=== PATIENT | female | born 2000 | race Caucasian/White ===

== ENCOUNTER 2023-10-02 19:51 | Emergency (ER) | payer OTHER, SELFPAY ==
[2023-10-02 19:58] VITALS: BP 130/83; PULSE 88; RESP 16; TEMP 36.7; O2SAT 100; BMI 23.8
--- NOTE | 2023-10-02 20:24 | ED.EAR1 ---
HPI - Ear Problem General Chief complaint: Ear Stated complaint: ear pain Time Seen by Provider: 10/02/23 19:57 Source: patient Mode of arrival: walk-in History of Present Illness HPI Narrative: Patient reports fullness in both ears since jamie covid a couple of weeks ago. No sharp pain. No current cough, nasal congestion, sinus pressure or runny nose. No drainage from the ears. No GI symptoms or cough. Related Data Allergies Allergy/AdvReac Type Severity Reaction Status Date / Time No Known Drug Allergies Allergy Verified 10/02/23 19:57 Exam Narrative Exam Narrative: Nurses notes and vital signs reviewed and patient is not hypoxic. afebrile General: Well-appearing and in no apparent distress. Skin: Warm, dry, no pallor noted. Head: Normocephalic, atraumatic. No maxillary or frontal sinus tenderness Neck: Supple, non-tender. No cervical lymphadenopathy Eye: Pupils are equal, round and EOMI. No scleral icterus. Ears, Nose, Mouth, and Throat: TMs are dull bilaterally with clear EACs. No erythema or injection. No nasal mucosal hypertrophy, uvula is mid-line Oral mucosa is moist Cardiovascular: Regular Rate and Rhythm without murmur, gallop or rub. Respiratory: No accessory muscle use or respiratory distress. Lungs are clear to auscultation, no wheezing, rales or rhonchi Neurological: A&O x4. No cranial nerve dysfunction observed. No truncal ataxia. Moves all extremities. Sensation intact. Psychiatric: Cooperative and interactive. Normal mood and affect. Constitutional Vital Signs, click to edit/add: Last Vital Signs Temp 98.0 F 10/02/23 19:58 Pulse 88 10/02/23 19:58 Resp 16 10/02/23 19:58 BP 130/83 10/02/23 19:58 Pulse Ox 100 10/02/23 19:58 O2 Del Method Room Air 10/02/23 19:58 Course Vital Signs Vital signs: Vital Signs Temperature 98.0 F 10/02/23 19:58 Pulse Rate 88 10/02/23 19:58 Respiratory Rate 16 10/02/23 19:58 Blood Pressure 130/83 10/02/23 19:58 Pulse Oximetry 100 10/02/23 19:58 Oxygen Delivery Method Room Air 10/02/23 19:58 Temperature 98.0 F 10/02/23 19:58 Pulse Rate 88 10/02/23 19:58 Respiratory Rate 16 10/02/23 19:58 Blood Pressure 130/83 10/02/23 19:58 Pulse Oximetry 100 10/02/23 19:58 Oxygen Delivery Method Room Air 10/02/23 19:58 Medical Decision Making MDM Narrative Medical decision making narrative: Patient has some serous changes but no acute otitis media. We discussed the use of antihistamines plus minus decongestant to try and decrease fluid production. We also discussed ways to clear the eustachian tubes. She was given reassurance and discharged home Discharge Plan Discharge Stand Alone Forms: Portal Instructions Chief Complaint: Ear Clinical Impression: Acute ear pain Qualifiers: Laterality: bilateral Qualified Code(s): H92.03 - Otalgia, bilateral Patient Disposition: Home, Self-Care Time of Disposition Decision: 20:28 Instructions: Earache (ED) Referrals: ALYSSA RICCI [Primary Care Provider] - 1 week
== END 2023-10-02 20:54 | disposition home or self-care (01) ==
PROVIDERS: Emergency Provider Emergency Medicine; PCP Nurse Practitioner
DX: H92.03 Otalgia, bilateral (principal)
CPT/HCPCS: 99284

== ENCOUNTER 2023-10-31 20:53 | Emergency (ER) | payer OTHER, SELFPAY ==
[2023-10-31 20:57] VITALS: BP 109/79; PULSE 78; TEMP 37; O2SAT 98; BMI 24.7
--- NOTE | 2023-10-31 21:08 | ED_ITS ---
HPI - Dental/Oral General Chief complaint: Dental/Oral Stated complaint: Dental Pain Time Seen by Provider: 10/31/23 21:02 Source: patient Mode of arrival: walk-in Limitations: no limitations History of Present Illness HPI Narrative: 23 year old female presents to the ED for dental pain. It has been intermittent for the past six months. States the pain flared up 3 days ago. Reports scheduling a dentist appointment; she was scheduled for the beginning of Nov, 2023. Denies fever, chills, SOB, difficulty swallowing. She took Motrin about 6 hours [employer]. Denies chance of . Related Data Previous Rx's ?Medication ?Instructions ?Recorded penicillin V potassium 500 mg 500 mg PO TID 10 days #30 tabs 10/31/23 tablet Allergies Allergy/AdvReac Type Severity Reaction Status Date / Time No Known Drug Allergies Allergy Verified 10/31/23 20:57 Review of Systems ROS Constitutional Denies: fever or chills Ears, nose, mouth, and throat Reports: other (Dental pain); Denies: throat pain, neck pain, difficulty swallowing or nasal discharge Cardiovascular Denies: chest pain Respiratory Denies: shortness of breath Musculoskeletal Denies: neck pain Integumentary/Breast Denies: rash Neurological Denies: headache, weakness in extremities or dizziness Exam Constitutional Vital Signs, click to edit/add: Last Vital Signs Temp 98.6 F 10/31/23 20:57 Pulse 78 10/31/23 20:57 Resp 18 10/31/23 20:57 BP 109/79 10/31/23 20:57 Pulse Ox 98 10/31/23 20:57 Common normals: no apparent distress and oriented x3 General appearance: cooperative HENMT Common normals: moist oral mucous membranes and oropharynx normal Mouth: lip normal and tongue normal; no drooling and no muffled voice Teeth and gingiva: caries and other Throat: posterior oropharynx normal and uvula midline Other: Dental caries various areas. No facial swelling. No swelling to floor of mouth. Pt speaking in full sentences, handling secretions well. Eye Common normals: conjunctivae normal and no scleral icterus Neck & C-Spine Common normals: supple and no meningeal signs Respiratory Common normals: normal respiratory effort Effort & inspection: able to speak in complete sentences and symmetric chest movement Cardio Common normals: regular rate Neuro Common normals: oriented x3, moves all extremities and gait normal Sensorium/orientation: awake and alert Course Vital Signs Vital signs: Vital Signs Temperature 98.6 F 10/31/23 20:57 Pulse Rate 78 10/31/23 20:57 Respiratory Rate 18 10/31/23 20:57 Blood Pressure 109/79 10/31/23 20:57 Pulse Oximetry 98 10/31/23 20:57 Temperature 98.6 F 10/31/23 20:57 Pulse Rate 78 10/31/23 20:57 Respiratory Rate 18 10/31/23 20:57 Blood Pressure 109/79 10/31/23 20:57 Pulse Oximetry 98 10/31/23 20:57 MDM - Dental/Oral MDM Narrative Medical decision making narrative: She was medicated with Toradol here. A prescription was provided for PCN. Follow up with the dentist as scheduled. Tylenol and/or Motrin as directed for pain. Return precautions were discussed. Differential Diagnosis Differential diagnosis: Likely gingival abscess, dental caries, toothache and dental abscess Medical Records Attestation: I reviewed the patient's medical records. Discharge Plan Discharge Stand Alone Forms: Portal Instructions Chief Complaint: Dental/Oral Clinical Impression: Dental caries, Toothache Patient Disposition: Home, Self-Care Time of Disposition Decision: 21:06 Condition: Good Mode of Transportation: Private Vehicle Prescriptions / Home Meds: New penicillin V potassium 500 mg tablet 500 mg PO TID 10 Days Qty: 30 0RF Print Language: French Instructions: Toothache (ED) Additional Instructions: Follow up with your dentist as scheduled. Return to the ER if your condition worsens. Referrals: ALYSSA RICCI [Primary Care Provider] - 1 week Discharge Date/Time: 10/31/23 21:35
[2023-10-31] MEDS: KETOROLAC TROMETHAMINE 60 MG/2 ML VIAL IM (21:17)
[2023-10-31] MEDS: PENICILLIN V POTASSIUM 250 MG TABLET 500 MG PO (21:17)
--- OUTSIDE RECORDS SUMMARY | 2023-10-31 21:33 | XMS_ITS | CCD ---
Author Organization [facility] Care Team Providers Care Physics Faculty Member Name Role Phone KEIRY, JANET R Admitting Unavailable KEIRY, JANET R Attending Unavailable KEIRY, JANET R Primary Care Unavailable KEIRY, JANET R Consulting Unavailable Harshal Car Admitting Unavailable Harshal Car Attending Unavailable Keiry, Janet R Primary Care Unavailable Keiry, Janet R Primary Care Provider [phone] Keiry, Janet R Primary Care Provider Radha Benavides Primary Care Provider Radha Benavides Primary Care Provider Kennedy [employer] SEAT COVERERRadha Primary Care Provider [facility] Provider Keiry [employer] - Janet BRODY Primary Care Provider Marianne Tucker CNP Primary Care Provider MARIANNE TUCKER Primary Care Unavailable MARTHA LARA Attending Unavailable AVERY OVALLE Referring Unavailable KEIRY, JANET R Primary Care Unavailable KEIRY, JANET R Primary Care Unavailable MAURICE, VESELIN Attending Unavailable KEIRY, JANET R Primary Care Unavailable SARAH JUSTICE Attending Unavailable KEIRY, JANET R Primary Care Unavailable MAURICE, VESELIN Attending Unavailable KEIRY, JANET R Primary Care Unavailable KEIRY, JANET R Primary Care Unavailable POOL, KARLEE E Referring Unavailable KEIRY, JANET R Primary Care Unavailable POOL, KARLEE E Referring Unavailable POOL, KARLEE E Referring Unavailable KEIRY, JANET R Primary Care Unavailable AVERY OVALLE Referring Unavailable KEIRY, JANET R Primary Care Unavailable Kennedy QUICK-Radha BRODY Primary Care Provider SELF, SELF Referring Unavailable BENAVIDES, RADHA L Attending Unavailable BENAVIDES, RADHA L Primary Care Unavailable BENAVIDES, RADHA L Attending Unavailable BENAVIDES, RADHA L Primary Care Unavailable SELF, SELF Referring Unavailable BENAVIDES, RADHA L Attending Unavailable BENAVIDES, RADHA L Primary Care Unavailable SELF, SELF Referring Unavailable BENAVIDES, RADHA L Attending Unavailable BENAVIDES, RADHA L Primary Care Unavailable SELF, SELF Referring Unavailable BENAVIDES, RADHA L Primary Care Unavailable BENAVIDES, RADHA L Attending Unavailable SELF, SELF Referring Unavailable BENAVIDES, RADHA L Primary Care Unavailable BENAVIDES, RADHA L Attending Unavailable SELF, SELF Referring Unavailable BENAVIDES, RADHA L Attending Unavailable BENAVIDES, RADHA L Primary Care Unavailable SELF, SELF Referring Unavailable BENAVIDES, RADHA L Attending Unavailable BENAVIDES, RADHA L Primary Care Unavailable SELF, SELF Referring Unavailable BENAVIDES, ARDHA L Attending Unavailable BENAVIDES, RADHA L Primary Care Unavailable SELF, SELF Referring Unavailable BENAVIDES, RADHA L Primary Care Unavailable SELF, SELF Referring Unavailable BENAVIDES, RADHA L Attending Unavailable BENAVIDES, RADHA L Primary Care Unavailable SELF, SELF Referring Unavailable BENAVIDES, RADHA L Attending Unavailable BENAVIDES, RADHA L Primary Care Unavailable SELF, SELF Referring Unavailable BENAVIDES, RADHA L Attending Unavailable BENAVIDES, RADHA L Primary Care Unavailable SELF, SELF Referring Unavailable BENAVIDES, RADHA L Attending Unavailable Keiry [employer] [facility], Janet Clark Primary Care Provider POOL, KARLEE E Referring Unavailable KEIRY, JANET R Primary Care Unavailable WYATT DSOUZA Referring Unavailable KEIRY, JANET R Primary Care Unavailable POOL, KARLEE E Referring Unavailable KEIRY, JANET R Primary Care Unavailable POOL, KARLEE E Admitting Unavailable POOL, KARLEE E Attending Unavailable KEIRY, JANET R Primary Care Unavailable POOL, KARLEE E Admitting Unavailable POOL, KARLEE E Attending Unavailable KEIRY, JANET R Primary Care Unavailable POOL, KARLEE E Admitting Unavailable POOL, KARLEE E Attending Unavailable KEIRY, JANET R Primary Care Unavailable POOL, KARLEE E Referring Unavailable KEIRY, JANET R Primary Care Unavailable Benavides SUPERVIS[employer] SEAT COVERER, Radha L Primary Care Provider Virginia COX Attending Unavailable BENAVIDES, RADHA L Primary Care Unavailable Virginia COX Referring Unavailable SELF, SELF Referring Unavailable Virginia COX Attending Unavailable RADHA BENAVIDES Primary Care Unavailable Virginia COX Referring Unavailable RADHA BENAVIDES Primary Care Unavailable Virginia COX Attending Unavailable Virginia COX MARK Referring Unavailable RADHA BENAVIDES Primary Care Unavailable Virginia COX MARK Attending Unavailable Virginia COX MARK Referring Unavailable Virginia COX Attending Unavailable RADHA BENAVIDES Primary Care Unavailable Virginia COX MARK Referring Unavailable Virginia COX MARK Attending Unavailable RADHA BENAVIDES Primary Care Unavailable Allergies Allergy Classification Reported Allergen(s) Allergy Type Date of Onset Reaction(s) Facility (1 source) Lactose Drug Allergy 06-20-2014 [facility] Repository (1 source) Lactose Drug Allergy 10-16-2018 [facility] Repository (1 source) Lactose Drug Allergy 09-25-2020 [facility] Medications Current Medications Medication Drug Class(es) Dates Sig (Normalized) Sig (Original) acetaminophen 325 mg / butalbital 50 mg / caffeine 40 mg oral tablet (7 sources) Barbiturate, Central Nervous System Stimulant, Methylxanthine Start: 05-12-2021 take 1 tablet by mouth every four hours as needed for headache butalbital-acetam inophen-caffeine (FIORICET, ESGIC) 50-325-40 MG per tablet Indications: Headache in , antepartum, second trimester Take 1 tablet by mouth every 4 hours as needed for Headaches 50 tablet 3 05/12/2021 Active azithromycin 250 mg oral tablet (4 sources) Macrolide Antimicrobial Start: 12-04-2020 End: 12-04-2020 azithromycin (Zithromax) 250 MG tablet Indications: Exposure to STD Take 1 gm PO for one dose. 4 tablet 0 12/04/2020 12/04/2020 Active Start: 10-16-2019 End: 11-16-2019 take 2 tablets by mouth once daily, then take 1 tablet by mouth azithromycin (ZITHROMAX) 250 MG tablet Indications: Bronchitis 2 tablets (500 mg) by mouth on day one. 1 tablet (250 mg) by mouth on days 2-5. 6 tablet 0 10/16/2019 11/16/2019 Discontinued (LIST CLEANUP) 1.5 ml buprenorphine 200 mg/ml prefilled syringe (20 sources) Partial Opioid Agonist Start: 08-23-2023 End: 09-26-2023 300 mg, Subcutaneous, ONCE, 1 dose, On Tue09/26/23 at 1430, For abdominal subcutaneous (SQ) injection only. Do not administer IV or IM. Allow at least 15 minutes to warm to room temperature prior to injection. Administer each injection only using the syringe and safety needle included with the product. Start: 11-12-2021 End: 06-10-2022 take 1 tablet under the tongue once daily buprenorphine 8 MG sublingual tablet Indications: Opioid dependence in remission , Encounter for long-term opiate analgesic use Place 1 tablet under tongue daily. 30 tablet 05/11/2022 Active Start: 08-17-2021 End: 11-10-2021 take 1 tablet under the tongue once daily buprenorphine 8 MG sublingual tablet Indications: Opioid dependence in remission , Encounter for long-term opiate analgesic use , , unspecified gestational age Place 1 tablet under tongue daily. 30 tablet 0 10/14/2021 11/10/2021 Discontinued (Reorder) Start: 05-19-2021 End: 07-16-2021 take 1 tablet under the tongue once daily buprenorphine 8 MG sublingual tablet Indications: Opioid dependence in remission , Encounter for long-term opiate analgesic use , , unspecified gestational age Place 1 tablet under tongue daily. 30 tablet 0 06/16/2021 07/16/2021 Active buprenorphine 5.7 mg / naloxone 1.4 mg sublingual tablet (20 sources) Partial Opioid Agonist, Opioid Antagonist Start: 02-27-2021 End: 05-24-2021 Buprenorphine HCl-Naloxone HCl (ZUBSOLV) 5.7-1.[address] 1 TABLET UNDER TONGUE DAILY EVERY MORNING. 0 02/27/2021 05/24/2021 Discontinued (LIST CLEANUP) Start: 02-27-2021 buprenorphine- nalOXone (Zubsolv) 5.7-1.[address] 1 TABLET UNDER TONGUE DAILY EVERY MORNING. 0 02/27/2021 Active Start: 10-02-2020 End: 03-30-2021 Buprenorphine HCl-Naloxone H Cl (Zubsolv) 5.7-1.4 MG Tab SL Indications: Opioid dependence in remission , Encounter for long-term opiate analgesic use Place 1 tablet under tongue daily every morning. 30 tablet 0 02/28/2021 03/30/2021 Active Start: 10-02-2020 End: 03-28-2021 Buprenorphine HCl-Naloxone H Cl (Zubsolv) 2.9-0.71 MG Tab SL Indications: Opioid dependence in remission , Encounter for long-term opiate analgesic use Place 1 tablet under tongue every evening at 6 PM. 30 tablet 0 02/26/2021 03/28/2021 Active Start: 09-25-2020 End: 10-02-2020 Buprenorphine HCl-Naloxone H Cl (Zubsolv) 2.9-0.71 MG Tab SL Indications: Opioid dependence in remission , Encounter for long-term opiate analgesic use Place 1 tablet under tongue 2 times daily for 7 days. 14 tablet 0 09/25/2020 10/02/2020 Discontinued (Reorder) Start: 09-17-2020 End: 09-25-2020 Zubsolv 2.9-0.71 MG Tab SL P LACE 1 TABLET UNDER THE TONGUE EVERY DAY 0 09/17/2020 09/25/2020 Discontinued Start: 09-10-2020 End: 09-25-2020 Zubsolv 1.4-0.36 MG Tab SL D ISSOLVE ONE TABLET UNDER TONGUE ONCE DAILY 0 09/10/2020 09/25/2020 Discontinued Start: 09-03-2020 End: 09-25-2020 Zubsolv 0.7-0.18 MG Tab SL P LACE 1 TABLET UNDER THE TONGUE EVERY DAY 0 09/03/2020 09/25/2020 Discontinued cephalexin 250 mg oral capsule (8 sources) Cephalosporin Antibacterial Start: 06-16-2021 take 1 capsule by mouth three times daily cephALEXin (KEFLEX) 250 MG capsule Indications: Cystitis of in second trimester Take 1 capsule by mouth 3 times daily 21 capsule 0 06/16/2021 Active Start: 04-08-2021 End: 04-08-2021 take 1 capsule by mouth three times daily cephALEXin (KEFLEX) 500 MG capsule Take 1 capsule by mouth 3 times daily 15 capsule 0 04/08/2021 Active cholecalciferol 0.05 mg oral tablet (12 sources) Vitamin D Start: 09-16-2023 End: 10-14-2023 take 1 tablet by mouth once daily cholecalciferol 50 MCG (2000 UNIT) tablet Indications: Vitamin D deficiency Take 1 tablet by mouth daily. 28 tablet 2 09/16/2023 10/14/2023 Active Start: 10-09-2020 End: 04-08-2021 take 1 tablet by mouth once daily vitamin D3 (CHOLECALCIFEROL) 125 MCG (5000 UT) TABS tablet Take 5,000 Units by mouth daily 0 10/09/2020 04/08/2021 Discontinued (Therapy completed) 12 hr dextromethorphan hydrobromide 30 mg / guaiFENesin 600 mg extended release oral tablet (3 sources) Uncompetitive P-hxrisv-X-aspartate Receptor Antagonist, Sigma-1 Agonist Start: 01-22-2020 End: 04-08-2021 Dextromethorphan-guaiFENesin (MUCINEX DM) 30-600 MG TB12 Take 30 tablets by mouth 2 times daily as needed (cough/congestion) 28 tablet 0 01/22/2020 04/08/2021 Discontinued (Therapy completed) docusate sodium 100 mg oral capsule (1 source) Start: 10-28-2021 take 1 capsule by mouth twice daily as needed for constip ation docusate sodium (COLACE) 100 MG capsule Take 1 capsule by mouth 2 times daily as needed for Constipation 30 capsule 0 10/28/2021 Active doxycycline hyclate 100 mg oral tablet (1 source) Tetracycline-class Drug Start: 11-16-2019 End: 11-23-2019 take 1 tablet by mouth twice daily doxycycline hyclate (VIBRA-TABS) 100 MG tablet Take 1 tablet by mouth 2 times daily for 7 days 14 tablet 0 11/16/2019 11/23/2019 Active ferrous sulfate 325 mg oral tablet (6 sources) Start: 08-26-2021 take 1 tablet by mouth once daily at [facility]fa [facility] ferrous sulfate (IRON 325) 325 (65 Fe) MG tablet Take 1 tablet by mouth daily (with breakfast) 90 tablet 1 08/26/2021 Active fluconazole 100 mg oral tablet (1 source) Azole Antifungal Start: 08-24-2019 End: 08-27-2019 take 1 tablet by mouth once daily fluconazole (DIFLUCAN) 100 MG tablet Take 1 tablet by mouth daily for 3 days 3 tablet 0 08/24/2019 08/27/2019 Active FLUoxetine 10 mg oral capsule (1 source) Serotonin Reuptake Inhibitor Start: 12-15-2021 take 1 capsule by mouth once daily FLUoxetine (PROZAC) 10 MG capsule Indications: depression (CODE) Take 1 capsule by mouth daily 30 capsule 3 12/15/2021 Active gabapentin 300 mg oral capsule (1 source) Anti-epileptic Agent Start: 09-16-2023 End: 09-30-2023 take 1 capsule by mouth three times daily Gabapentin 300 MG capsule Indications: Sciatica of left side Take 1 capsule by mouth 3 times daily for 14 days. 42 capsule 1 09/16/2023 09/30/2023 Active glucose monitoring (FREESTYLE FREEDOM) kit (6 sources) Start: 09-10-2021 glucose monitoring (FREESTYL E FREEDOM) kit Indications: Impaired glucose in , antepartum , Abnormal glucose affecting 1 kit by Does not apply route 4 times daily Use qid to monitor glucose 1 kit 0 09/10/2021 Active ibuprofen 800 mg oral tablet (4 sources) Nonsteroidal Anti-inflammatory Drug Start: 10-28-2021 take 1 tablet by mouth every eight hours ibuprofen (ADVIL;MOTRIN) 800 MG tablet Take 1 tablet by mouth every 8 hours 120 tablet 3 10/28/2021 Active Start: 05-18-2019 take 1 tablet by juice th every eight hours as needed for pain ibuprofen (ADVIL;MOTRIN) 800 MG tablet Take 1 tablet by mouth every 8 hours as needed for Pain 30 tablet 0 05/18/2019 Active ketoconazole 20 mg/ml medicated shampoo (20 sources) Azole Antifungal Start: 07-14-2021 ketoconazole 2 % Shampoo shampoo Indications: Seborrheic dermatitis of scalp Apply 1 Application topically 3 times weekly. Apply topically to wet hair 3-4 times a week 120 mL 04/08/2022 Active Start: 09-25-2020 End: 04-08-2021 ketoconazole 2 % Shampoo sha mpoo Indications: Seborrheic dermatitis of scalp Apply 1 Application topically 3 times weekly. Apply topically to wet hair 3-4 times a week 120 mL 0 01/29/2021 Active lamoTRIgine 100 mg oral tablet (14 sources) Mood Stabilizer, Anti-epileptic Agent End: 08-24-2019 take 1 tablet by mouth once daily lamoTRIgine 100 MG tablet Take 100 mg by mouth daily. 0 Active Multiple Vitamins-Iron (MULTI-VITAMIN/IRON PO) (1 source) Multiple Vitamins-Iron (MULTI-VITAMIN/IR ON PO) Take by mouth 0 Active naloxone hydrochloride 40 mg/ml nasal spray (20 sources) Opioid Antagonist Start: 09-16-2023 End: 09-16-2023 naloxone 4 MG/0.1ML Indications: Opioid dependence in remission 1 spray by Nasal route once for 1 dose. [place] into the nose as directed. Call 911. If no response in 2 minutes use a new nasal spray in other nostril. Repeat until help arrives. 1 Each 09/16/2023 Active Start: 10-13-2021 End: 10-13-2021 naloxone 4 MG/0.1ML Indicati ons: Opioid dependence in remission , Encounter for long-term opiate analgesic use 1 spray by Nasal route once for 1 dose. [place] into the nose as directed. Call 911. If no response in 2 minutes use a new nasal spray in other nostril. Repeat until help arrives. 1 Each 0 10/13/2021 Active Start: 09-25-2020 naloxone 4 MG/ 0.1ML Indications: Opioid dependence in remission , Encounter for long-term opiate analgesic use 1 spray by Nasal route once for 1 dose. 1 Bottle 0 09/25/2020 Active nitrofurantoin, macrocrystals 25 mg / nitrofurantoin, monohydrate 75 mg oral capsule (1 source) Nitrofuran Antibacterial Start: 01-29-2021 End: 02-08-2021 take 1 capsule by mouth twice daily nitrofurantoin, macrocrystal-monohydrate, 100 MG capsule Indications: Acute cystitis with hematuria Take 1 capsule by mouth 2 times daily for 10 days. Take w/ food/milk 20 capsule 0 01/29/2021 02/08/2021 Active omeprazole 20 mg delayed release oral capsule (20 sources) Proton Pump Inhibitor Start: 09-16-2023 End: 10-14-2023 take 2 capsules by mouth twice daily as needed omeprazole [address] capsule Indications: Gastroesophageal reflux disease, unspecified whether esophagitis present Take 2 capsules by mouth 2 times daily as needed. 56 capsule 2 09/16/2023 10/14/2023 Active Start: 01-22-2020 End: 02-21-2020 take 1 capsule by mouth twice daily as needed omeprazole [address] capsule Take 20 mg by mouth 2 times daily as needed. 0 01/22/2020 Active Omeprazole Magne sium (PRILOSEC PO) Take by mouth 0 Active End: 08-24-2019 take 1 capsule by mouth twice daily omeprazole (PRILOSEC) 40 MG delayed release capsule Take 40 mg by mouth 2 times daily 0 08/24/2019 Discontinued (LIST CLEANUP) Vit-Fe Fumarate-FA ( VITAMIN PO) (11 sources) Vit-Fe Fumarate-FA ( VITAMIN PO) Take by mouth 0 Active QUEtiapine 50 mg oral tablet (20 sources) Atypical Antipsychotic Start: 4 End: 4 take 1 tablet by mouth at bedtime as needed QUEtiapine 50 MG tablet Indications: Primary insomnia Take 1 tablet by mouth at bedtime as needed. 28 tablet 2 09/16/2023 10/14/2023 Active Start: 07-31-2021 take 1 tablet by juice th once daily at bedtime QUEtiapine (SEROQUEL) 100 MG tablet TAKE 1 TABLET BY MOUTH EVERYDAY AT BEDTIME 0 07/31/2021 Active Start: 08-25-2020 End: 01-29-2021 take 1 tablet by mouth at bedtime QUEtiapine 100 MG tablet Indications: Anxiety , Bipolar 1 disorder Take 1 tablet by mouth at bedtime. 90 tablet 2 01/29/2021 Active End: 08-24-2019 take 1 tablet by mouth once daily QUEtiapine (SEROQUEL) 50 MG tablet Take 50 mg by mouth nightly 0 08/24/2019 Discontinued (LIST CLEANUP) selenium sulfide 22.5 mg/ml medicated shampoo (1 source) Start: 09-16-2023 Selenium Sulfide 2.25 % Shampoo Indications: Dandruff in adult Apply 1 Units topically every other day. 180 mL 2 09/16/2023 Active sulfamethoxazole 800 mg / trimethoprim 160 mg oral tablet (1 source) Dihydrofolate Reductase Inhibitor Antibacterial, Sulfonamide Antimicrobial Start: 08-24-2019 End: 08-29-2019 take 1 tablet by mouth twice daily sulfamethoxazole- trimethoprim (BACTRIM DS) 800-160 MG per tablet Take 1 tablet by mouth 2 times daily for 5 days 10 tablet 0 08/24/2019 08/29/2019 Active Completed/Discontinued Medications Medication Drug Class(es) Dates Sig (Normalized) Sig (Original) acetaminophen 500 mg oral tablet (2 sources) Start: 01-22-2020 End: 01-22-2020 acetaminophen (TYLENOL) tablet 1,000 mg Start: 05-18-2019 End: 05-18-2019 acetaminophen (TYLENOL) tabl et 1,000 mg amoxicillin 250 mg oral capsule (1 source) Penicillin-class Antibacterial Start: 10-15-2021 End: 10-15-2021 amoxicillin (AMOXIL) capsule 500 mg Start: 10-15-2021 End: 10-15-2021 amoxicillin (AMOXIL) capsule 500 mg cefTRIAXone 1000 mg injection (2 sources) Cephalosporin Antibacterial Start: 12-04-2020 End: 12-04-2020 cefTRIAXone (ROCEPHIN) injection 1 g Start: 12-04-2020 End: 12-04-2020 cefTRIAXone (ROCEPHIN) injec tion 1 g 1 ml ketorolac tromethamine 30 mg/ml cartridge (2 sources) Nonsteroidal Anti-inflammatory Drug, Cyclooxygenase Inhibitor Start: 01-22-2020 End: 01-22-2020 ketorolac (TORADOL) injection 30 mg Start: 11-16-2019 End: 11-16-2019 ketorolac (TORADOL) injectio n 30 mg Naltrexone (1 source) Opioid Antagonist End: 05-18-2019 Naltrexone (VIVITROL IM) Inject into the muscle every 28 days 0 05/18/2019 Discontinued (LIST CLEANUP) naproxen 500 mg oral tablet (4 sources) Nonsteroidal Anti-inflammatory Drug Start: 11-16-2019 End: 01-22-2020 take 1 tablet by mouth twice daily naproxen (NAPROSYN) 500 MG tablet Take 1 tablet by mouth 2 times daily 30 tablet 0 11/16/2019 01/22/2020 Discontinued (LIST CLEANUP) predniSONE 5 mg oral tablet (1 source) Start: 05-12-2021 End: 05-24-2021 take 1 tablet by mouth once daily predniSONE (DELTASONE) 5 MG tablet Indications: No appetite Take 1 tablet orally daily 30 tablet 3 05/12/2021 05/24/2021 Discontinued (LIST CLEANUP) Vit-Fe Fumarate-FA ( Plus) 27-1 MG tablet (7 sources) Start: 10-09-2020 End: 07-15-2021 take 1 tablet by mouth once daily Vit-Fe Fumarate-FA ( Plus) 27-1 MG tablet Indications: Vitamin D deficiency Take 1 tablet by mouth daily. 90 tablet 0 10/09/2020 01/29/2021 Discontinued Start: 10-09-2020 take 1 tablet by juice th once daily Vit-Fe Fumarate-FA ( Plus) 27-1 MG tablet Indications: Vitamin D deficiency Take 1 tablet by mouth daily. 90 tablet 0 10/09/2020 Active sucralfate 1000 mg oral tablet (3 sources) Aluminum Complex End: 08-24-2019 take 1 tablet by mouth four times daily sucralfate (CARAFATE) 1 GM tablet Take 1 g by mouth 4 times daily 0 08/24/2019 Discontinued (LIST CLEANUP) Problems Active Problems Problem Classification Problem Date Documented Da te Episodic/Chronic Abdominal pain (1 source) Pain in pelvis; Translations: [Pelvic pain] Episodic Acute bronchitis (1 source) Acute bronchitis; Translations: [Acute bronchitis, unspecified organism] Episodic Anxiety disorders (20 sources) Anxiety disorder, unspecified; Translations: [Anxiety disorder] Onset: 9 10-01-2019 Chronic Bacterial infection; unspecified site (1 source) Chlamydial infection; Translations: [Chlamydia infection] Episodic Esophageal disorders (3 sources) Gastroesophageal reflux disease; Translations: [Gastro-esophageal reflux disease without esophagitis] Onset: 4 09-16-2023 Chronic Esophageal disorders (1 source) Esophageal disorders; Translations: [K21.9 - Gastro-esophageal reflux disease without esophagitis] Onset: 9 Gastrointestinal hemorrhage (1 source) Rectal hemorrhage; Translations: [Hemorrhage of anus and rectum] Episodic Headache; including migraine (1 source) Headache; Translations: [Nonintractable headache, unspecified chronicity pattern, unspecified headache type] Episodic Immunizations and screening for infectious disease (4 sources) Exposure to sexually transmissible disorder; Translations: [Contact with and (suspected) exposure to infections with a predominantly sexual mode of transmission] Onset: 3 Episodic Malaise and fatigue (1 source) Fatigue; Translations: [Fatigue, unspecified type] Episodic Menstrual disorders (1 source) Amenorrhea; Translations: [Amenorrhea, unspecified] Chronic Miscellaneous mental health disorders (3 sources) Primary insomnia; Translations: [Primary insomnia] Onset: 4 09-16-2023 Chronic Mood disorders (20 sources) Major depression, single episode; Translations: [Bipolar I disorder] Onset: 9 10-01-2019 Chronic Nutritional deficiencies (4 sources) Vitamin D deficiency; Translations: [Vitamin D deficiency, unspecified] Onset: 4 09-16-2023 Chronic Other complications of (1 source) Abdominal pain in ; Translations: [Other specified related conditions, first trimester] Episodic Other ear and sense organ disorders (1 source) Otalgia; Translations: [Otalgia, unspecified ear] Episodic Other inflammatory condition of skin (2 sources) Seborrheic dermatitis of scalp; Translations: [Seborrheic dermatitis, unspecified] Episodic Other inflammatory condition of skin (2 sources) Seborrheic dermatitis, unspecified; Translations: [Seborrheic dermatitis, unspecified] Onset: 2 Episodic Other inflammatory condition of skin (1 source) Pityriasis simplex; Translations: [Seborrhea capitis] Onset: 4 09-16-2023 Episodic Other inflammatory condition of skin (2 sources) Seborrhea capitis; Translations: [Seborrhea capitis] Onset: 4 Episodic Other nervous system disorders (1 source) Loss of taste; Translations: [Parageusia] Episodic Other skin disorders (1 source) Loss of hair; Translations: [Hair loss] Episodic Residual codes; unclassified (1 source) Gestation period, 11 weeks; Translations: [11 weeks gestation of ] Episodic Residual codes; unclassified (1 source) Gestation period, 36 weeks; Translations: [36 weeks gestation of ] Episodic Residual codes; unclassified (1 source) Breast fed ; Translations: [Other specified health status] Episodic Spondylosis; intervertebral disc disorders; other back problems (3 sources) Sciatica; Translations: [Sciatica, left side] Onset: 4 09-16-2023 Episodic Substance-related disorders (20 sources) Opioid abuse, uncomplicated; Translations: [Opioid abuse] Onset: 9 10-01-2019 Chronic Unclassified (8 sources) Patient encounter status; Translations: [Encntr for obs for oth suspected diseases and cond ruled out] Onset: 0 10-01-2019 Unclassified (1 source) Repeated prescription; Translations: [Encounter for medication refill] Unclassified (1 source) Cancer cervix screening status; Translations: [Screening for cervical cancer] Urinary tract infections (2 sources) Acute cystitis; Translations: [Acute cystitis with hematuria] Episodic Viral infection (2 sources) COVID-19; Translations: [COVID-19] Onset: 2 Past or Other Problems Problem Classification Problem Date Documented Date Episodic/Chronic Administrative/social admission (20 sources) 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; 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] Onset: 10-01-2019 Episodic Diabetes or abnormal glucose tolerance complicating ; childbirth; or the puerperium (2 sources) Gestational diabetes mellitus complicating ; Translations: [Gestational diabetes mellitus in , unspecified control] Onset: 09-10-2021 10-26-2021 Episodic Early or threatened labor (5 sources) Premature uterine contraction; Translations: [False labor before 37 completed weeks of gestation, third trimester] Onset: 10-15-2021 Resolved: 12-15-2021 Episodic Esophageal disorders (17 sources) Disorder of esophagus; Translations: [Disease of esophagus, unspecified] Onset: 10-17-2018 10-01-2019 Episodic Genitourinary symptoms and ill-defined conditions (20 sources) Dysuria; Translations: [Dysuria] Onset: 10-01-2019 10-01-2019 Episodic Intracranial injury (18 sources) Concussion with no loss of consciousness; Translations: [Concussion without loss of consciousness, initial encounter] Onset: 10-01-2019 10-01-2019 Episodic Mood disorders (2 sources) Major depressive disorder, single episode, unspecified; Translations: [Mood disorders] Onset: 08-16-2018 09-16-2023 Mycoses (18 sources) Candidiasis of vagina; Translations: [Candidiasis of vulva and vagina] Onset: 10-01-2019 Resolved: 12-15-2021 10-01-2019 Episodic Other aftercare (2 sources) 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; Translations: [care home (current) use of opiate analgesic] Onset: 02-26-2021 Episodic Other complications of (1 source) Anemia in mother complicating , childbirth AND/OR puerperium; Translations: [Anemia complicating , third trimester] Onset: 10-26-2021 Resolved: 12-15-2021 12-15-2021 Chronic Other complications of (5 sources) data - finding; Translations: [Unspecified abnormal findings on screening of mother] Onset: 10-26-2021 Resolved: 12-15-2021 10-05-2021 Episodic Other complications of (1 source) Urinary tract infection in ; Translations: [Unspecified infection of urinary tract in , third trimester] Resolved: 12-15-2021 12-15-2021 Episodic Other and delivery including normal (11 sources) Urine test positive; Translations: [Encounter for test, result positive] Onset: 10-13-2021 Resolved: 12-15-2021 Episodic Other screening for suspected conditions (not mental disorders or infectious disease) (1 source) Patient encounter status; Translations: [Encounter for observation for other suspected diseases and conditions ruled out] Onset: 10-01-2019 10-01-2019 Episodic Other upper respiratory infections (4 sources) Nasopharyngitis; Translations: [Acute nasopharyngitis [common cold]] Onset: 10-13-2021 Episodic Residual codes; unclassified (2 sources) Other specified health status; Translations: [Other specified health status] Onset: 11-10-2021 Episodic Residual codes; unclassified (1 source) Gestation period, 39 weeks; Translations: [39 weeks gestation of ] Onset: 10-26-2021 Resolved: 12-15-2021 12-15-2021 Episodic Residual codes; unclassified (1 source) 36 weeks gestation of ; Translations: [36 weeks gestation of ] Onset: 10-05-2021 Episodic Residual codes; unclassified (1 source) 30 weeks gestation of ; Translations: [30 weeks gestation of ] Onset: 08-25-2021 Episodic Substance-related disorders (6 sources) Drug dependence in mother complicating , childbirth AND/OR puerperium; Translations: [Drug use complicating , unspecified trimester] Onset: 09-10-2021 Resolved: 12-15-2021 09-10-2021 Episodic Results Test Name Value Interpretation Reference Range Facility Chlamydia/GC,DNA Ampon 08-23 Chlamydia Probe Negative Normal NEG [facility] Comment on above: Result Comment: CHLA MYDIA TRACHOMATIS DNA not detected by nucleic acid amplification. This test is intended for medical purposes only and is not valid for the evaluation of suspected sexual abuse or for other forensic purposes. In certain contexts, culture may be required to meet applicable laws and regulations for diagnosis of C. trachomatis and N. gonorrhoeae infections. Per 2014 CDC recommendations, this test does not include confirmation of positive results by an alternative nucleic acid target. Performed By: #### S WCGP #### [facility] [place], [place] [id number] School Commissioner: Isak Guerrero MD Gonorrhea Probe Negative Normal NEG [facility] Comment on above: Result Comment: NEIS SERIA GONORRHOEAE DNA not detected by nucleic acid amplification. This test is intended for medical purposes only and is not valid for the evaluation of suspected sexual abuse or for other forensic purposes. In certain contexts, culture may be required to meet applicable laws and regulations for diagnosis of C. trachomatis and N. gonorrhoeae infections. Per 2014 CDC recommendations, this test does not include confirmation of positive results by an alternative nucleic acid target. Performed By: #### S WCGP #### [facility] [address] [place] [address] [id number] School Commissioner: Isak Guerrero MD Trichomonas/Wet Prepon 08-20 Trichomonas/Wet Prep Specimen Descriptio n .VAGINAL SPECIMEN Direct Exam NO YEAST OBSERVED NO TRICHOMONAS SEEN CLUE CELLS SEEN Report Status FINAL 08/20/2022 Normal [facility] Comment on above: Performed By: #### W P #### [facility] [address] [place] [address] School Commissioner: Harshal Austin MD Wet prep, genitalon 08-20-19 Interpretation and review of laboratory results Abnormal [facility] Microorganism or agent identified Nom (Unsp spec) NO YEAST OBSERVED [facility] Microorganism or agent identified Nom (Unsp spec) NO TRICHOMONAS SEEN [facility] Microorganism or agent identified Nom (Unsp spec) CLUE CELLS SEEN Abnormal [facility] Specimen Description .VAGINAL SPECIMEN [facility] POCT ALERE DRUG SCREENon Amphetamine (AMP), poct Negative [facility] Barbiturates (BAR), poct Negative [facility] Buprenorphine Glucuronide (BUPG),poct Positive [facility] COCAINE (NADIRA), POCT Negative [facility] Ecstasy (MDMA), poct Negative [facility] Interpretation and review of laboratory results Normal [facility] Marijuana (THC), poct Negative [facility] Comment on above: temp was 90. Methadone (MTD), poct Negative [facility] Methamphetamine (mAMP/MET), poct Negative [facility] Nortripyline (TCA), poct Negative [facility] Opiate (OPI), poct Negative [facility] OXAZEPAM (BZO),POCT Negative [facility] Oxycodone (OXY), poct Negative [facility] Phencyclidine (PCP), poct Negative [facility] Propoxyphene (PPX), poct Negative [facility] Urine was not witnes sed. All controls were present. [facility] Residential Documentson 03-18-2022 Residential Documents [id number]:[id number] Normal [facility] POCT ALERE DRUG SCREENon Amphetamine (AMP), poct Negative [facility] Barbiturates (BAR), poct Negative [facility] Buprenorphine Glucuronide (BUPG),poct Positive [facility] COCAINE (NADIRA), POCT Negative [facility] Ecstasy (MDMA), poct Negative [facility] Interpretation and review of laboratory results Normal [facility] Marijuana (THC), poct Negative [facility] Comment on above: Temp 90 urine was no t witnessed Methadone (MTD), poct Negative [facility] Methamphetamine (mAMP/MET), poct Negative [facility] Nortripyline (TCA), poct Negative [facility] Opiate (OPI), poct Negative [facility] OXAZEPAM (BZO),POCT Negative [facility] Oxycodone (OXY), poct Negative [facility] Phencyclidine (PCP), poct Negative [facility] Propoxyphene (PPX), poct Negative [facility] All internal control s were present [facility] POCT ALERE DRUG SCREENon Amphetamine (AMP), poct Negative [facility] Barbiturates (BAR), poct Negative [facility] Buprenorphine Glucuronide (BUPG),poct Positive [facility] COCAINE (NADIRA), POCT Negative [facility] Ecstasy (MDMA), poct Negative [facility] Interpretation and review of laboratory results Normal [facility] Marijuana (THC), poct Negative [facility] Comment on above: Temp 90 urine was no t witnessed Methadone (MTD), poct Negative [facility] Methamphetamine (mAMP/MET), poct Negative [facility] Nortripyline (TCA), poct Negative [facility] Opiate (OPI), poct Negative [facility] OXAZEPAM (BZO),POCT Negative [facility] Oxycodone (OXY), poct Negative [facility] Phencyclidine (PCP), poct Negative [facility] Propoxyphene (PPX), poct Negative [facility] All internal control s were present [facility] POCT ALERE DRUG SCREENon Amphetamine (AMP), poct Negative [facility] Barbiturates (BAR), poct Negative [facility] Buprenorphine Glucuronide (BUPG),poct Positive [facility] COCAINE (NADIRA), POCT Negative [facility] Ecstasy (MDMA), poct Negative [facility] Interpretation and review of laboratory results Normal [facility] Marijuana (THC), poct Negative [facility] Comment on above: temp 90 urine was no t witnessed Methadone (MTD), poct Negative [facility] Methamphetamine (mAMP/MET), poct Negative [facility] Nortripyline (TCA), poct Negative [facility] Opiate (OPI), poct Negative [facility] OXAZEPAM (BZO),POCT Negative [facility] Oxycodone (OXY), poct Negative [facility] Phencyclidine (PCP), poct Negative [facility] Propoxyphene (PPX), poct Negative [facility] All internal control s were present [facility] POCT ALERE DRUG SCREENon Amphetamine (AMP), poct Negative [facility] Barbiturates (BAR), poct Negative [facility] Buprenorphine Glucuronide (BUPG),poct Positive [facility] COCAINE (NADIRA), POCT Negative [facility] Ecstasy (MDMA), poct Negative [facility] Interpretation and review of laboratory results Normal [facility] Marijuana (THC), poct Negative [facility] Comment on above: temperature is 90, c ollection was not witnessed Methadone (MTD), poct Negative [facility] Methamphetamine (mAMP/MET), poct Negative [facility] Nortripyline (TCA), poct Negative [facility] Opiate (OPI), poct Negative [facility] OXAZEPAM (BZO),POCT Negative [facility] Oxycodone (OXY), poct Negative [facility] Phencyclidine (PCP), poct Negative [facility] Propoxyphene (PPX), poct Negative [facility] All internal control s are positive [facility] POCT ALERE DRUG SCREENon Amphetamine (AMP), poct Negative [facility] Barbiturates (BAR), poct Negative [facility] Buprenorphine Glucuronide (BUPG),poct Positive [facility] COCAINE (NADIRA), POCT Negative [facility] Ecstasy (MDMA), poct Negative [facility] Interpretation and review of laboratory results Normal [facility] Marijuana (THC), poct Negative [facility] Comment on above: temp 92 urine was no t witnessed Methadone (MTD), poct Negative [facility] Methamphetamine (mAMP/MET), poct Negative [facility] Nortripyline (TCA), poct Negative [facility] Opiate (OPI), poct Negative [facility] OXAZEPAM (BZO),POCT Negative [facility] Oxycodone (OXY), poct Negative [facility] Phencyclidine (PCP), poct Negative [facility] Propoxyphene (PPX), poct Negative [facility] All internal control s were present [facility] Surgical Pathologyon 022 Surgical Pathology (NOTE) -- Diagnosis -- Placenta, third trimester: - Umbilical cord and membranes, free of inflammation. - Plate, no histologic abnormality. Bryan Quevedo M.D. Electronically Signed Out rdd/10/28/2021 Clinical Information PLACENTA Source of Specimen A: PLACENTA Gross Description CHRISTINE HARTMANN, PLACENTA Placenta with attached membranes and umbilical cord. UMBILICAL CORD Length: 29.0 cm Diameter: 1.3 cm True knots: No Number of vessels: 3 Spiraling: Normal Insertion into surface: Paracentral MEMBRANES Color: Tesfaye-segovia, focally opacified Meconium staining: No SURFACE Color: Purple-tesfaye, with a normal array of surface vessels Subchorionic fibrin: Marginal and involves approximately 5% of the disc MATERNAL SURFACE Cotyledons: -All present and intact: Yes -Focal lesions: No Placental size: 16.0 x 14.0 x 3.0 cm Shape: Ovoid Weight: 399 grams Number of cassettes: 3cs tm Microscopic Description Umbilical cord: Negative for funisitisMembranes: Negative for chorioamnionitisMeconium staining: NoInfarcts: NoIntervillous thrombi: NoSubchorionic fibrin: Not increasedVillous maturation: MatureNucleated erythrocytes in villous capillaries: RarePlate: No histologic abnormality SURGICAL PATHOLOGY CONSULTATION Patient Name: CHRISTINE SALCIDO [facility] Rec: [id number] Path Number: [id number] [facility] [employer] [facility] ANATOMIC PATHOLOGY [address] [place] [id number] Normal [facility] Comment on above: Performed By: #### P PPVS #### [address] [address] School Commissioner: Isak Guerrero MD CBC with Diffon 10-26-2021 Abs. Basophil 0.04 k/uL Normal 0.00-0.20 [facility] Comment on above: Performed By: #### C DP #### [facility] [address] [place] [address] School Commissioner: Harshal Austin MD Abs.Imm.Granulocyte 0.08 k/uL Normal 0.00-0.30 [facility] Comment on above: Performed By: #### C DP #### [address] [place], [place] [id number] School Commissioner: Harshal Austin MD Abs.Neutrophil (Seg) 4.94 k/uL Normal 1.50-8.10 [facility] Comment on above: Performed By: #### C DP #### [address] [place] [id number] School Commissioner: Harshal Austin MD Basophils/100 WBC (Bld) 1 % Normal 0-2 [facility] Comment on above: Performed By: #### C DP #### [address] [place], [facility] School Commissioner: Harshal Austin MD Eosinophils (Bld) [#/Vol] 0.03 10*3/uL Normal 0.00-0.44 [facility] Comment on above: Performed By: #### C DP #### [address] [place], [facility] School Commissioner: Harshal Austin MD Eosinophils/100 WBC (Bld) 0 % Low 1-4 [facility] Comment on above: Performed By: #### C DP #### [address] [place], [facility] School Commissioner: Harshal Austin MD Erythrocyte distribution width (RBC) [Ratio] 12.2 % Normal 11.8-14.4 [facility] Comment on above: Performed By: #### C DP #### [address] [place], [facility] School Commissioner: Harshal Austin MD Hematocrit (Bld) [Volume fraction] 32.3 % Low 36.3-47.1 [facility] Comment on above: Performed By: #### C DP #### [facility] [address] [place] [address] Dr. [place], [facility] School Commissioner: Harshal Austin MD Hemoglobin (Bld) [Mass/Vol] 10.7 g/dL Low 11.9-15.1 [facility] Comment on above: Performed By: #### C DP #### [facility] [address] [place] [address] Dr. [place], [facility] School Commissioner: Harshal Austin MD Immature granulocytes/100 WBC (Bld) 1 % High 0 [facility] Comment on above: Performed By: #### C DP #### [address] [place], [facility] School Commissioner: Harshal Austin MD Lymphocytes (Bld) [#/Vol] 1.63 10*3/uL Normal 1.10-3.70 [facility] Comment on above: Performed By: #### C DP #### [address] [place], [facility] School Commissioner: Harshal Austin MD Lymphocytes/100 WBC (Bld) 23 % Low 24-43 [facility] Comment on above: Performed By: #### C DP #### [facility] [address] [place] [address] Dr. [place], [place] [address] School Commissioner: Harshal Austin MD MCH (RBC) [Entitic mass] 29.2 pg Normal 25.2-33.5 [facility] Comment on above: Performed By: #### C DP #### [address] [place], [facility]83 School Commissioner: Harshal Austin MD MCHC (RBC) [Mass/Vol] 33.1 g/dL Normal 28.4-34.8 [facility] Comment on above: Performed By: #### C DP #### [facility] [address] [place] [address] Dr. [place], [place] [id number] School Commissioner: Harshal Austin MD MCV (RBC) [Entitic vol] 88.0 fL Normal 82.6-102.9 [facility] Comment on above: Performed By: #### C DP #### [facility] [address] [place] [address] Dr. [place], [place] [id number] School Commissioner: Harshal Austin MD Monocytes (Bld) [#/Vol] 0.40 10*3/uL Normal 0.10-1.20 [facility] Comment on above: Performed By: #### C DP #### [address] [place] [id number] School Commissioner: Harshal Austin MD Monocytes/100 WBC (Bld) 6 % Normal 3-12 [facility] Comment on above: Performed By: #### C DP #### [address] [place], [facility]83 School Commissioner: Harshal Austin MD Neutrophil (Seg) 69 % High 36-65 [facility] Comment on above: Performed By: #### C DP #### [address] [place], [facility]83 School Commissioner: Harshal Austin MD NRBC Automated 0.0 per 100 WBC Normal 0.0 [facility] Comment on above: Performed By: #### C DP #### [address] [place], [facility]83 School Commissioner: Harshal Austin MD Platelet mean volume (Bld) [Entitic vol] 11.6 fL Normal 8.1-13.5 [facility] Comment on above: Performed By: #### C DP #### [address] [place], [place] [id number] School Commissioner: Harshal Austin MD Platelets (Bld) [#/Vol] 172 10*3/uL Normal 138-453 [facility] Comment on above: Performed By: #### C DP #### [facility] [address] [place], [place] [id number] School Commissioner: Harshal Austin MD RBC (Bld) [#/Vol] 3.67 10*6/uL Low 3.95-5.11 [facility] Comment on above: Performed By: #### C DP #### [facility] [address] [place], [facility]83 School Commissioner: Harshal Austin MD WBC (Bld) [#/Vol] 7.1 10*3/uL Normal 3.5-11.3 [facility] Comment on above: Performed By: #### C DP #### [facility] [address] [place], [place] [address] School Commissioner: Harshal Austin MD Drug Scr, Abuse, Uron 2021 Amphetamine(s),Ur Negative Normal NEG [facility] Comment on above: Performed By: #### C BC #### [facility] [address] [place], [facility]83 School Commissioner: Harshal Austin MD Barbiturate(s),Ur Negative Normal NEG [facility] Comment on above: Performed By: #### C BC #### [facility] [address] [place], [place] [address] School Commissioner: Harshal Austin MD Benzodiazepine(s) Negative Normal NEG [facility] Comment on above: Performed By: #### C BC #### [facility] [address] [place], [facility]83 School Commissioner: Harshal Austin MD Buprenorphrine, Ur Positive Abnormal NEG [facility] Comment on above: Performed By: #### C BC #### [facility] [address] [place], [facility] School Commissioner: Harshal Austin MD Cannabinoid(s),Ur Negative Normal NEG [facility] Comment on above: Performed By: #### C BC #### [facility] [address] [place] [address] School Commissioner: Harshal Austin MD Cocaine Metabolite Negative Normal [facility] Comment on above: Performed By: #### C BC #### [facility] [address] [place], [place] [id number] School Commissioner: Harshal Austin MD Methadone Ql (U) Negative Normal NEG [facility] Comment on above: Performed By: #### C BC #### [facility] [address] [place] [address] School Commissioner: Harshal Austin MD Methamphetamine, Ur Negative Normal NEG [facility] Comment on above: Performed By: #### C BC #### [facility] [address] [place], [place] [id number] School Commissioner: Harshal Austin MD Opiate(s), Ur Negative Normal [facility] Comment on above: Performed By: #### C BC #### [address] [place] [address] School Commissioner: Harshal Austin MD Oxycodone, Urine Negative Normal [facility] Comment on above: Performed By: #### C BC #### [facility] [address] [place], [place] [id number] School Commissioner: Harshal Austin MD Phencyclidine, Ur Negative Normal [facility] Comment on above: Performed By: #### C BC #### [facility] [address] [place] [address] School Commissioner: Harshal Austin MD Propoxyphene,Urine Negative Normal [facility] Comment on above: Performed By: #### C BC #### [facility] [address] [place] [address] School Commissioner: Harshal Austin MD Tricyclic antidepressants Screen Ql (U) Negative Normal NEG [facility] Comment on above: Result Comment: Drug screen results are to be used for medical purposes only. All positive results are unconfirmed. Testing for employment or legal uses should be sent to a reference laboratory for confirmation. Performed By: #### C BC #### [facility] [address] [place] [address] [place] [address] School Commissioner: Harshal Austin MD Type + Screenon 10-26-2021 Type + Screen Sample Expiration 10/29/2021,2359 Arm Band Number [id number] ABO/Rh(D) O POSITIVE Antibody Screen NEGATIVE Normal [facility] Comment on above: Performed By: #### T YS #### [facility] [address] [place] [address] [place] [address] School Commissioner: Harshal Austin MD Cult,Urineon 10-17-2021 Cult,Urine Specimen Description .CLEAN CATCH URINE Culture NO GROWTH Report Status FINAL 10/17/2021 Normal [facility] Comment on above: Performed By: #### U RC #### [facility] [employer] [address] [place] [address] School Commissioner: Isak Guerrero MD [facility] [address] [place] [address] [place] [address] School Commissioner: Harshal Austin MD Microscopic Urinalysison - [employer] Bacteria, UA 1+ Abnormal None [employer] Epithelial Cells UA 5 TO [address] [facility] Interpretation and review of laboratory results Abnormal Cost Effective Data RBC, UA 0 TO 2 [employer] WBC, UA 0 TO 2 [facility] Urinalysison 10-15-2021 Bilirubin Urine Negative NEGATIVE [employer] Color, UA Yellow Yellow [facility] [employer] Glucose, Ur Negative NEGATIVE [employer] Interpretation and review of laboratory results Abnormal [employer] Ketones Ql (U) Negative NEGATIVE [employer] Leukocyte esterase Test strip Ql (U) LARGE Abnormal NEGATIVE [employer] Nitrite, Urine Negative NEGATIVE [employer] pH, UA 6.0 [employer] Protein, UA Negative NEGATIVE [facility] Specific Josephine, UA 1.025 High [facility] Turbidity UA Cloudy Abnormal Clear [facility] Urine Hgb Negative NEGATIVE [facility] Urobilinogen, Urine Normal Normal [facility] Urinalysis, Routineon 2021 Bilirubin, SemiQt,Ur Negative Normal NEG [facility] Comment on above: Performed By: #### U A, UMICAO #### [facility] [address] [place] [address] [place] [place], [place] [id number] School Commissioner: Harshal Austin MD Blood, Urine Negative Normal [facility] Comment on above: Performed By: #### U A, UMICAO #### [facility] [address] [place] [address] [place] [address] School Commissioner: Harshal Austin MD Clarity (U) Cloudy Abnormal CLEAR [facility] Comment on above: Performed By: #### U A, UMICAO #### [facility] [address] [place], [place] [id number] School Commissioner: Harshal Austin MD Color (U) Yellow Normal YEL [facility] Comment on above: Performed By: #### U A, UMICAO #### [facility] [address] [place], [place] [id number] School Commissioner: Harshal Austin MD Glucose Ql (U) Negative Normal [facility] Comment on above: Performed By: #### U A, UMICAO #### [facility] [address] [place], [place] [id number] School Commissioner: Harshal Austin MD Ketones Ql (U) Negative Normal [facility] Comment on above: Performed By: #### U A, UMICAO #### [facility] [address] [place] [address] School Commissioner: Harshal Austin MD Leukocyte esterase Test strip Ql (U) LARGE Abnormal NEG [facility] Comment on above: Performed By: #### U A, UMICAO #### [facility] [address] [place], [place] [id number] School Commissioner: Harshal Austin MD Nitrite,Ur Negative Normal NEG [facility] Comment on above: Performed By: #### U A, UMICAO #### [facility] [address] [place], [place] [id number] School Commissioner: Harshal Austin MD PH,Ur 6.0 Normal 5.0-9.0 [facility] Comment on above: Performed By: #### U A, UMICAO #### [facility] [address] [place] [address] School Commissioner: Harshal Austin MD Protein Ql (U) Negative Normal NEG [facility] Comment on above: Performed By: #### U A, UMICAO #### [facility] [address] [place] [address] [place] [address] School Commissioner: Harshal Austin MD Spec. Josephine,Ur 1.025 High 1.010-1.020 [facility] Comment on above: Performed By: #### U A, UMICAO #### [facility] [address] [place] [address] [place] [address] School Commissioner: Harshal Austin MD Urobilinogen,Ur Normal Normal NORM [facility] Comment on above: Performed By: #### U A, UMICAO #### [facility] [address] [place], [place] [id number] School Commissioner: Harshal Austin MD Urinalysis,Microon 2 ----- Normal [facility] Comment on above: Performed By: #### U A, UMICAO #### [facility] [address] [place], [place] [id number] School Commissioner: Harshal Austin MD Bacteria 1+ Abnormal NONE [facility] Comment on above: Performed By: #### U A, UMICAO #### [facility] [address] [place] [address] School Commissioner: Harshal Austin MD Epithelial cells LM Ql (Urine sed) 5 TO 10 Normal 0-25 [facility] Comment on above: Performed By: #### U A, UMICAO #### [facility] [address] [place], [place] [id number] School Commissioner: Harshal Austin MD Urine RBC's 0 TO 2 Normal 0-2 [facility] Comment on above: Performed By: #### U A, UMICAO #### [facility] [address] [place] [address] School Commissioner: Harshal Austin MD Urine WBC's 0 TO 2 Normal 0-5 [facility] Comment on above: Performed By: #### U A, UMICAO #### [facility] [address] [place] [address] School Commissioner: Harshal Austin MD Rule Out Grp.B Strepon 10-08 Rule Out Grp.B Strep Specimen Descriptio n .VAGINA Culture NEGATIVE FOR GROUP B STREPTOCOCCI Report Status FINAL 10/08/2021 Normal [facility] Comment on above: Performed By: #### R OGBS #### [facility] [address] [place] [address] School Commissioner: Isak Guerrero MD [facility] [address] [place] [address] [place] [address] School Commissioner: Harshal Austin MD POCT ALERE DRUG SCREENon Amphetamine (AMP), poct Negative [facility] Barbiturates (BAR), poct Negative [facility] Buprenorphine Glucuronide (BUPG),poct Positive [facility] COCAINE (NADIRA), POCT Negative [facility] Ecstasy (MDMA), poct Negative [facility] Interpretation and review of laboratory results Normal [facility] Marijuana (THC), poct Negative [facility] Comment on above: temp 96 urine was no t witnessed Methadone (MTD), poct Negative [facility] Methamphetamine (mAMP/MET), poct Negative [facility] (TCA), poct Negative [facility] Opiate (OPI), poct Negative [facility] OXAZEPAM (BZO),POCT Negative [facility] Oxycodone (OXY), poct Negative [facility] Phencyclidine (PCP), poct Negative [facility] Propoxyphene (PPX), poct Negative [facility] All internal control s were present [facility] CBCon 08-25-2021 Erythrocyte distribution width (RBC) [Ratio] 12.1 % Normal 11.8-14.4 [facility] Comment on above: Performed By: #### C BC #### [facility] [address] [place] [address] [place] [address] School Commissioner: Harshal Austin MD Hematocrit (Bld) [Volume fraction] 31.4 % Low 36.3-47.1 [facility] Comment on above: Performed By: #### C BC #### [address] [place] [address] School Commissioner: Harshal Austin MD Hemoglobin (Bld) [Mass/Vol] 10.5 g/dL Low 11.9-15.1 [facility] Comment on above: Performed By: #### C BC #### [address] [place] [address] School Commissioner: Harshal Austin MD MCH (RBC) [Entitic mass] 31.8 pg Normal 25.2-33.5 [facility] Comment on above: Performed By: #### C BC #### [address] [place] [address] School Commissioner: Harshal Austin MD MCHC (RBC) [Mass/Vol] 33.4 g/dL Normal 28.4-34.8 [facility] Comment on above: Performed By: #### C BC #### [facility] [address] [place] [address] School Commissioner: Harshal Austin MD MCV (RBC) [Entitic vol] 95.2 fL Normal 82.6-102.9 [facility] Comment on above: Performed By: #### C BC #### [address] [place], [place] [id number] School Commissioner: Harshal Austin MD NRBC Automated 0.0 per 100 WBC Normal 0.0 [facility] Comment on above: Performed By: #### C BC #### [address] [place] [address] School Commissioner: Harshal Austin MD Platelet mean volume (Bld) [Entitic vol] 11.3 fL Normal 8.1-13.5 [facility] Comment on above: Performed By: #### C BC #### [address] [place], [place] [id number] School Commissioner: Harshal Austin MD Platelets (Bld) [#/Vol] 181 10*3/uL Normal 138-453 [facility] Comment on above: Performed By: #### C BC #### [address] [place] [address] School Commissioner: Harshal Austin MD RBC (Bld) [#/Vol] 3.30 10*6/uL Low 3.95-5.11 [facility] Comment on above: Performed By: #### C BC #### [address] [place] [address] School Commissioner: Harshal Austin MD WBC (Bld) [#/Vol] 8.2 10*3/uL Normal 3.5-11.3 [facility] Comment on above: Performed By: #### C BC #### [address] [place] [address] School Commissioner: Harshal Austin MD [id number] 07-21-2021 SARS-CoV-2 (COVID-19) RNA MARIA FERNANDA+probe Ql (Unsp spec) Detected Abnormal [facility] Comment on above: Result Comment: Rapid NAAT: The specimen is POSITIVE for SARS-Cov-2, the novel coronavirus associated with COVID-19. This test has been authorized by the FDA under an Emergency Use Authorization (EUA) for use by authorized laboratories. The ID NOW COVID-19 assay is designed to detect the virus that causes COVID-19 in patients with signs and symptoms of infection who are suspected of COVID-19. An individual without symptoms of COVID-19 and who is not shedding SARS-CoV-2 virus would expect to have a negative (not detected) result in this assay. Fact sheet for Healthcare Providers: https://www.fda.gov/media/584279/download Fact sheet for Patients: https://www.fda.gov/media/447262/download Methodology: Isothermal Nucleic Acid Amplification Results reported to the appropriate Health Department Performed By: #### C OVRB #### [facility] [address] [place] [address] School Commissioner: Harshal Austin MD [id number] 07-17-2021 SARS-CoV-2 (COVID-19) RNA MARIA FERNANDA+probe Ql (Unsp spec) Not detected Normal [facility] Comment on above: Result Comment: Rapid NAAT: The specimen is NEGATIVE for SARS-CoV-2, the novel coronavirus associated with COVID-19. The ID NOW COVID-19 assay is designed to detect the virus that causes COVID-19 in patients with signs and symptoms of infection who are suspected of COVID-19. An individual without symptoms of COVID-19 and who is not shedding SARS-CoV-2 virus would expect to have a negative (not detected) result in this assay. Negative results should be treated as presumptive and, if inconsistent with clinical signs and symptoms or necessary for patient management, should be tested with an alternative molecular assay. Negative results do not preclude SARS-CoV-2 infection and should not be used as the sole basis for patient management decisions. Fact sheet for Healthcare Providers: https://www.fda.gov/media/829469/download Fact sheet for Patients: https://www.fda.gov/media/714668/download Methodology: Isothermal Nucleic Acid Amplification Performed By: #### B HCG #### [facility] [address] [place] [address] School Commissioner: Harshal Austin MD Cult,Urineon 06-18-2021 Cult,Urine Specimen Description .URINE Special Requests NOT REPORTED Culture NO SIGNIFICANT GROWTH Report Status FINAL 06/18/2021 Normal [facility] Comment on above: Performed By: #### B HCG #### [facility] [address] [place], [place] [id number] School Commissioner: Harshal Austin MD POCT ALERE DRUG SCREENon Amphetamine (AMP), poct Negative [facility] Barbiturates (BAR), poct Negative [facility] Buprenorphine Glucuronide (BUPG),poct Positive [facility] COCAINE (NADIRA), POCT Negative [facility] Ecstasy (MDMA), poct Negative [facility] Interpretation and review of laboratory results Normal [facility] Marijuana (THC), poct Negative [facility] Comment on above: temperature is 92, c ollection was not witnessed Methadone (MTD), poct Negative [facility] Methamphetamine (mAMP/MET), poct Negative [facility] Nortripyline (TCA), poct Negative [facility] Opiate (OPI), poct Negative [facility] OXAZEPAM (BZO),POCT Negative [facility] Oxycodone (OXY), poct Negative [facility] Phencyclidine (PCP), poct Negative [facility] Propoxyphene (PPX), poct Negative [facility] All internal control s are positive [facility] CBC Auto Differentialon 11-0 Absolute Eos # 0.[address] [facility] Absolute Immature Granulocyte NOT REPORTED [facility] Absolute Lymph # 1.[address] [facility] Absolute Tillman # 0.[address] [facility] Basophils (Bld) [#/Vol] 0.00 10*3/uL [facility] Basophils/100 WBC (Bld) 1 % 0 - 2 % [facility] Differential Type YES [facility] Eosinophils/100 WBC (Bld) 1 % 0 - 5 % [facility] Hematocrit (Bld) [Volume fraction] 33.4 % Low 36 - 46 % [facility] Hemoglobin.gastrointes tinal spec 1 Ql (Stl) 11.6 g/dL Low 12.0 - 16.0 g/dL [facility] Immature Granulocytes NOT REPORTED 0 % M [facility] Interpretation and review of laboratory results Abnormal [facility] Lymphocytes/100 WBC (Bld) 21 % 15 - 40 % [facility] MCH (RBC) [Entitic mass] 31.6 pg 26 - [address] [facility] MCHC (RBC) [Mass/Vol] 34.8 g/dL 31 - 37 g/dL [facility] MCV (RBC) [Entitic vol] 91.0 fL 80 - [address] [facility] Monocytes/100 WBC (Bld) 4 % 4 - 8 % [facility] NRBC Automated NOT REPORTED per [address] [facility] Platelet distribution width (Bld) [Ratio] 12.7 % 12.1 - 15.2 % [facility] Platelet Estimate NOT REPORTED [facility] Platelet mean volume (Bld) [Entitic vol] NOT REPORTED 6.0 - 12.[address] [facility] Platelets (Bld) [#/Vol] 181 10*3/uL [facility] RBC (Bld) [#/Vol] 3.67 10*6/uL Low 4.0 - 5.2 m/uL [facility] RBC (Bld) [#/Vol] NOT REPORTED [facility] Segmented neutrophils/100 WBC (Bld) 73 % 47 - 75 % [facility] Segs Absolute 5.[address] [facility] WBC (Bld) [#/Vol] 7.9 10*3/uL [facility] WBC (Bld) [#/Vol] NOT REPORTED [facility] CBC with Diffon 05-24-2021 Abs. Basophil 0.00 k/uL Normal 0.0-0.2 [facility] Comment on above: Performed By: #### C DP #### [facility] [address] [place] [address] School Commissioner: Harshal Austin MD Abs.Neutrophil (Seg) 5.90 k/uL Normal 2.5-7.0 [facility] Comment on above: Performed By: #### C DP #### [facility] [address] [place] [address] School Commissioner: Harshal Austin MD Auto Diff Performed YES Normal [facility] Comment on above: Performed By: #### C DP #### [facility] [address] [place] [address] School Commissioner: Harshal Austin MD Basophils/100 WBC (Bld) 1 % Normal 0-2 [facility] Comment on above: Performed By: #### C DP #### [facility] [address] [place] [address] School Commissioner: Harshal Austin MD Eosinophils (Bld) [#/Vol] 0.00 10*3/uL Normal 0.0-0.4 [facility] Comment on above: Performed By: #### C DP #### [facility] [address] [place] [address] School Commissioner: Harshal Austin MD Eosinophils/100 WBC (Bld) 1 % Normal 0-5 [facility] Comment on above: Performed By: #### C DP #### [facility] [address] [place] [address] School Commissioner: Harshal Austin MD Erythrocyte distribution width (RBC) [Ratio] 12.7 % Normal 12.1-15.2 [facility] Comment on above: Performed By: #### C DP #### [facility] [address] [place] [address] School Commissioner: Harshal Austin MD Hematocrit (Bld) [Volume fraction] 33.4 % Low 36-46 [facility] Comment on above: Performed By: #### C DP #### [facility] [address] [place] [address] School Commissioner: Harshal Austin MD Hemoglobin (Bld) [Mass/Vol] 11.6 g/dL Low 12.0-16.0 [facility] Comment on above: Performed By: #### C DP #### [facility] [address] [place] [address] School Commissioner: Harshal Austin MD Lymphocytes (Bld) [#/Vol] 1.60 10*3/uL Normal 1.0-4.8 [facility] Comment on above: Performed By: #### C DP #### [facility] [address] [place] [id number] School Commissioner: Harshal Austin MD Lymphocytes/100 WBC (Bld) 21 % Normal 15-40 [facility] Comment on above: Performed By: #### C DP #### [facility] [address] [place] [id number] School Commissioner: Harshal Austin MD MCH (RBC) [Entitic mass] 31.6 pg Normal 26-34 [facility] Comment on above: Performed By: #### C DP #### [facility] [address] [place] [address] School Commissioner: Harshal Austin MD MCHC (RBC) [Mass/Vol] 34.8 g/dL Normal 31-37 [facility] Comment on above: Performed By: #### C DP #### [facility] [address] [place] [address] School Commissioner: Harshal Austin MD MCV (RBC) [Entitic vol] 91.0 fL Normal 80-100 [facility] Comment on above: Performed By: #### C DP #### [facility] [address] [place], [place] [id number] School Commissioner: Harshal Austin MD Monocytes (Bld) [#/Vol] 0.30 10*3/uL Normal 0.0-1.0 [facility] Comment on above: Performed By: #### C DP #### [facility] [address] [place] [address] School Commissioner: Harshal Austin MD Monocytes/100 WBC (Bld) 4 % Normal 4-8 [facility] Comment on above: Performed By: #### C DP #### [facility] [address] [place] [id number] School Commissioner: Harshal Austin MD Neutrophil (Seg) 73 % Normal 47-75 [facility] Comment on above: Performed By: #### C DP #### [facility] [address] [place] [id number] School Commissioner: Harshal Austin MD Platelets (Bld) [#/Vol] 181 10*3/uL Normal 140-450 [facility] Comment on above: Performed By: #### C DP #### [facility] [address] [place] [id number] School Commissioner: Harshal Austin MD RBC (Bld) [#/Vol] 3.67 10*6/uL Low 4.0-5.2 [facility] Comment on above: Performed By: #### C DP #### [facility] [address] [place] [id number] School Commissioner: Harshal Austin MD WBC (Bld) [#/Vol] 7.9 10*3/uL Normal 3.5-11.0 [facility] Comment on above: Performed By: #### C DP #### [facility] [address] [place] [address] School Commissioner: Harshal Austin MD Abs.Imm.Granulocyte NOT REPORTED Normal 0.00-0.30 [facility] Comment on above: Performed By: #### C DP #### [facility] [address] [place] [id number] School Commissioner: Harshal Austin MD Immature Granulocyte NOT REPORTED Normal 0 [facility] Comment on above: Performed By: #### C DP #### [facility] [address] [place] [address] School Commissioner: Harshal Austin MD MPV NOT REPORTED Normal 6.0-12.0 [facility] Comment on above: Performed By: #### C DP #### [facility] [address] [place] [address] School Commissioner: Harshal Austin MD NRBC Automated NOT REPORTED Normal [facility] Comment on above: Performed By: #### C DP #### [facility] [address] [place] [address] School Commissioner: Harshal Austin MD Platelet Comment NOT REPORTED Normal [facility] Comment on above: Performed By: #### C DP #### [facility] [address] [place] [address] School Commissioner: Harshal Austin MD RBC morphology finding Nom (Bld) NOT REPORTED Normal [facility] Comment on above: Performed By: #### C DP #### [facility] [address] [place] [address] School Commissioner: Harshal Austin MD WBC Morphology NOT REPORTED Normal [facility] Comment on above: Performed By: #### C DP #### [facility] [address] [place] [address] School Commissioner: Harshal Austin MD Microscopic Urinalysison - [facility] Amorphous, UA NOT REPORTED None [facility] Bacteria, UA 3+ Abnormal None [facility] Casts UA NOT REPORTED /LPF [facility] Crystals, UA NOT REPORTED None /HPF [facility] Epithelial Cells UA 10 TO 20 /HPF [facility] Interpretation and review of laboratory results Abnormal [facility] Mucus, UA NOT REPORTED None [facility] Other Observations UA NOT REPORTED NOT REQ. M [facility] RBC, UA NOT REPORTED [facility] Renal Epithelial, UA NOT REPORTED 0 /HPF [facility] Trichomonas, UA NOT REPORTED None [facility] WBC, UA 2 TO 5 0 /HPF [facility] Yeast, UA NOT REPORTED None [facility] TYPE AND SCREENon 1 07-24-2020 ABO/Rh Positive [facility] Type + Scrnon 05-24 Type + Scrn Negative Normal [facility] Comment on above: Performed By: #### B HCG #### [facility] [address] [place] [address] School Commissioner: Harshal Austin MD Urinalysison 05-24-2021 Bilirubin Urine Negative NEGATIVE [facility] Color, UA Yellow Yellow [facility] Glucose, Ur Negative NEGATIVE [facility] Interpretation and review of laboratory results Abnormal [facility] Ketones Ql (U) Negative NEGATIVE [facility] Leukocyte esterase Test strip Ql (U) 2+ Abnormal NEGATIVE [facility] Nitrite, Urine Negative NEGATIVE [facility] pH, UA 6.[address] [facility] Protein, UA Negative NEGATIVE [facility] Specific Josephine, UA 1.015 [facility] Turbidity UA Hazy Abnormal Clear [facility] Urinalysis Comments [facility] Urine Hgb Negative NEGATIVE [facility] Urobilinogen, Urine Normal Normal [facility] Urinalysis, Routineon 2020 Bilirubin, SemiQt,Ur Negative Normal NEG [facility] Comment on above: Performed By: #### U MICAO, UA #### [facility] [address] [place] [address] School Commissioner: Harshal Austin MD Blood, Urine Negative Normal NEG [facility] Comment on above: Performed By: #### U MICAO, UA #### [facility] [address] [place] [address] School Commissioner: Harshal Austin MD Clarity (U) Hazy Abnormal CLEAR [facility] Comment on above: Performed By: #### U MICAO, UA #### [facility] [address] [place] [place], [place] [id number] School Commissioner: Harshal Austin MD Color (U) Yellow Normal YEL [facility] Comment on above: Performed By: #### U MICAO, UA #### [facility] [address] [place] [address] School Commissioner: Harshal Austin MD Comment Normal [facility] Comment on above: Performed By: #### U MICAO, UA #### [facility] [facility] [address] [place] [address] School Commissioner: Harshal Austin MD Glucose Ql (U) Negative Normal NEG [facility] Comment on above: Performed By: #### U MICAO, UA #### [facility] [address] [place], [place] [id number] School Commissioner: Harshal Austin MD Ketones Ql (U) Negative Normal NEG [facility] Comment on above: Performed By: #### U MICAO, UA #### [facility] [address] [place], [place] [id number] School Commissioner: Harshal Austin MD Leukocyte esterase Test strip Ql (U) 2+ Abnormal NEG [facility] Comment on above: Performed By: #### U MICAO, UA #### [facility] [address] [place], [place] [phone] School Commissioner: Harshal Austin MD Nitrite,Ur Negative Normal NEG [facility] Comment on above: Performed By: #### U MICAO, UA #### [facility] [address] [place], [place] [id number] School Commissioner: Harshal Austin MD PH,Ur 6.5 Normal 5.0-8.0 [facility] Comment on above: Performed By: #### U MICAO, UA #### [facility] [address] [place], [place] [id number] School Commissioner: Harshal Austin MD Protein Ql (U) Negative Normal NEG [facility] Comment on above: Performed By: #### U MICAO, UA #### [facility] [address] [place] [address] School Commissioner: Harshal Austin MD Spec. Josephine,Ur 1.015 Normal 1.005-1.030 [facility] Comment on above: Performed By: #### U MICAO, UA #### [facility] [address] [place] [address] School Commissioner: Harshal Austin MD Urobilinogen,Ur Normal Normal NORM [facility] Comment on above: Performed By: #### U MICAO, UA #### [facility] [address] [place] [address] School Commissioner: Harshal Austin MD Urinalysis,Microon 1 ----- Normal [facility] Comment on above: Performed By: #### U MICAO, UA #### [facility] [address] [place] [address] School Commissioner: Harshal Austin MD Bacteria 3+ Abnormal NONE [facility] Comment on above: Performed By: #### U MICAO, UA #### [facility] [address] [place] [address] School Commissioner: Harshal Austin MD Epithelial cells LM Ql (Urine sed) 10 TO 20 Normal [facility] Comment on above: Performed By: #### U MICAO, UA #### [facility] [address] [place] [address] School Commissioner: Harshal Austin MD Urine WBC's 2 TO 5 Normal 0 [facility] Comment on above: Performed By: #### U MICAO, UA #### [facility] [address] [place], [place] [id number] School Commissioner: Harshal Austin MD Amorphous sediment LM Ql (Urine sed) NOT REPORTED Normal NONE [facility] Comment on above: Performed By: #### U ZAINA, UA #### [facility] [address] [place], [place] [phone] School Commissioner: Harshal Austin MD Casts NOT REPORTED Normal [facility] Comment on above: Performed By: #### U MANFREDO, UA #### [facility] [address] [place], [place] [id number] School Commissioner: Harshal Austin MD Crystals LM Nom (Urine sed) NOT REPORTED Normal NONE [facility] Comment on above: Performed By: #### U ZAINA, UA #### [facility] [address] [place], [place] [id number] School Commissioner: Harshal Austin MD Epithelial, Renal NOT REPORTED Normal 0 [facility] Comment on above: Performed By: #### U ZAINA, UA #### [facility] [address] [place], [place] [id number] School Commissioner: Harshal Austin MD Mucus Strands NOT REPORTED Normal [facility] Comment on above: Performed By: #### U ZAINA, UA #### [facility] [address] [place], [place] [phone] School Commissioner: Harshal Austin MD Other Observations NOT REPORTED Normal NREQ [facility] Comment on above: Performed By: #### U MANFREDO, UA #### [facility] [address] [facility] [place] [phone] School Commissioner: Harshal Austin MD Trichomonas NOT REPORTED Normal NONE [facility] Comment on above: Performed By: #### U MANFREDO, UA #### [facility] [address] [place], [place] [id number] School Commissioner: Harshal Austin MD Urine RBC's NOT REPORTED Normal 0-2 [facility] Comment on above: Performed By: #### U MICAO, UA #### [facility] [address] [place], [place] [id number] School Commissioner: Harshal Austin MD Yeast NOT REPORTED Normal NONE [facility] Comment on above: Performed By: #### U MICAO, UA #### [facility] [address] [place], [place] [phone] School Commissioner: Harshal Austin MD Cult,Urineon 04-09-2021 Cult,Urine Specimen Description .URINE, MIDSTREAM Special Requests NOT REPORTED Culture NO GROWTH Report Status FINAL 04/09/2021 Normal [facility] Comment on above: Performed By: #### B HCG #### [facility] [address] [place], [place] [phone] School Commissioner: Harshal Austin MD HCG, Quanton 04-08-2021 HCG, Quant [id number] IU/L High <5 [facility] Comment on above: Result Comment: Non-preg premeno <=5 Postmeno <=8 Male <=3 If HCG results do not concur with clinical observations, additional testing to confirm results is recommended. Elevated results not associated with may be found in patients with other diseases such as tumors of the germ cells (testis, ovaries, etc.), bladder, pancreas, stomach, lungs, and liver. Performed By: #### B HCG #### [facility] [address] [place], [place] [phone] School Commissioner: Harshal Austin MD Urinalysis w/ Microon 2020 ----- Normal [facility] Comment on above: Performed By: #### B HCG #### [facility] [address] [place], [place] [id number] School Commissioner: Harshal Austin MD Bilirubin, SemiQt,Ur Negative Normal NEG [facility] Comment on above: Performed By: #### B HCG #### [facility] [address] [place], [place] [phone] School Commissioner: Harshal Austin MD Blood, Urine Negative Normal NEG [facility] Comment on above: Performed By: #### B HCG #### [facility] [address] [place], [place] [id number] School Commissioner: Harshal Austin MD Clarity (U) CLEAR Normal CLEAR [facility] Comment on above: Performed By: #### B HCG #### [facility] [address] [place], [place] [id number] School Commissioner: Harshal Austin MD Color (U) YELLOW Normal YEL [facility] Comment on above: Performed By: #### B HCG #### [facility] [address] [place], [place] [phone] School Commissioner: Harshal Austin MD Comment Normal [facility] Comment on above: Performed By: #### B HCG #### [facility] [address] [place], [place] [phone] School Commissioner: Harshal Austin MD Glucose Ql (U) Negative Normal NEG [facility] Comment on above: Performed By: #### B HCG #### [facility] [address] [place], [place] [phone] School Commissioner: Harshal Austin MD Ketones Ql (U) Negative Normal NEG [facility] Comment on above: Performed By: #### B HCG #### [facility] [address] [place], [place] [phone] School Commissioner: Harshal Austin MD Leukocyte esterase Test strip Ql (U) 3+ Abnormal NEG [facility] Comment on above: Performed By: #### B HCG #### [facility] [address] [place], [place] 6451990 School Commissioner: Harshal Austin MD Nitrite,Ur Negative Normal NEG [facility] Comment on above: Performed By: #### B HCG #### [facility] [address] [place], [place] [phone] School Commissioner: Harshal Austin MD PH,Ur 6.5 Normal 5.0-8.0 [facility] Comment on above: Performed By: #### B HCG #### [facility] [address] [place], [place] [id number] School Commissioner: Harshal Austin MD Protein Ql (U) 1+ Abnormal NEG [facility] Comment on above: Performed By: #### B HCG #### [facility] [address] [place] [address] School Commissioner: Harshal Austin MD Spec. Josephine,Ur 1.015 Normal 1.005-1.030 [facility] Comment on above: Performed By: #### B HCG #### [facility] [address] [place], [place] [phone] School Commissioner: Harshal Austin MD Urine RBC's 2 TO 5 Normal 0-2 [facility] Comment on above: Performed By: #### B HCG #### [facility] [address] [place], [place] [phone] School Commissioner: Harshal Austin MD Urine WBC's 10 TO 20 Normal 0 [facility] Comment on above: Performed By: #### B HCG #### [facility] [address] [place], [place] [phone] School Commissioner: Harshal Austin MD Urobilinogen,Ur Normal Normal NORM [facility] Comment on above: Performed By: #### B HCG #### [facility] [address] [place], [place] 3619690 School Commissioner: Harshal Austin MD Amorphous sediment LM Ql (Urine sed) NOT REPORTED Normal [facility] Comment on above: Performed By: #### B HCG #### [facility] [address] [place], [place] [phone] School Commissioner: Harshal Austin MD Bacteria NOT REPORTED Normal [facility] Comment on above: Performed By: #### B HCG #### [facility] [address] [place], [place] [phone] School Commissioner: Harshal Austin MD Casts NOT REPORTED Normal [facility] Comment on above: Performed By: #### B HCG #### [facility] [address] [place], [place] [id number] School Commissioner: Harshal Austin MD Crystals LM Nom (Urine sed) NOT REPORTED Normal NONE [facility] Comment on above: Performed By: #### B HCG #### [facility] [address] [place] [address] School Commissioner: Harshal Austin MD Epithelial cells LM Ql (Urine sed) NOT REPORTED Normal [facility] Comment on above: Performed By: #### B HCG #### [facility] [address] [place], [place] [phone] School Commissioner: Harshal Austin MD Epithelial, Renal NOT REPORTED Normal 0 [facility] Comment on above: Performed By: #### B HCG #### [facility] [address] [place] [address] School Commissioner: Harshal Austin MD Mucus Strands NOT REPORTED Normal NONE [facility] Comment on above: Performed By: #### B HCG #### [facility] [address] [place], [place] 1648490 School Commissioner: Harshal Austin MD Other Observations NOT REPORTED Normal NREQ [facility] Comment on above: Performed By: #### B HCG #### [facility] [address] [place] [address] School Commissioner: Harshal Austin MD Trichomonas NOT REPORTED Normal NONE [facility] Comment on above: Performed By: #### B HCG #### [facility] [address] [place] [address] School Commissioner: Harshal Austin MD Yeast NOT REPORTED Normal NONE [facility] Comment on above: Performed By: #### B HCG #### [facility] [address] [place] [address] School Commissioner: Harshal Austin MD Urinalysis with MicroscopicO rdered By: Juan Richards on 04-08-2021 - [employer] Work Phone: Amorphous, UA NOT REPORTED None [employer] Work Phone: Bacteria, UA NOT REPORTED None [employer] Work Phone: Bilirubin Urine Negative NEGATIVE [employer] Phone: Casts UA NOT REPORTED /LPF [facility] Work Phone: Color, UA YELLOW YELLOW [employer] Work Phone: Crystals, UA NOT REPORTED None /HPF [employer] Work Phone: Epithelial Cells UA NOT REPORTED /HPF [employer] Work Phone: Glucose, Ur Negative NEGATIVE [employer] Phone: Interpretation and review of laboratory results Abnormal [employer] Work Phone: Ketones Ql (U) Negative NEGATIVE [employer] Work Phone: Leukocyte esterase Test strip Ql (U) 3+ Abnormal NEGATIVE [employer] Work Phone: Mucus, UA NOT REPORTED None [employer] Phone: Nitrite, Urine Negative NEGATIVE [employer] Phone: Other Observations UA NOT REPORTED NOT REQ. [facility] Work Phone: pH, UA 6.5 [employer] Work Phone: Protein, UA 1+ Abnormal NEGATIVE [employer] Work Phone: RBC, UA 2 TO 5 [employer] Phone: Renal Epithelial, UA NOT REPORTED 0 /HPF [facility] [employer] Phone: Specific Josephine, UA 1.015 [address] [employer] Phone: Trichomonas, UA NOT REPORTED None [employer] Phone: Turbidity UA CLEAR CLEAR [facility] Phone: Urinalysis Comments [facility] Phone: Urine Hgb Negative NEGATIVE [facility] Phone: Urobilinogen, Urine Normal Normal [facility] Phone: WBC, UA 10 TO 20 0 /HPF [facility] Phone: Yeast, UA NOT REPORTED None [employer] Phone: [employer] Phone: hCG, quantitative, Ordered By: Juan Richards on 04-08-2021 hCG Quant 22424 High <5 IU/L [employer] Phone: Comment on above: Non-preg premeno <=5 Postmeno <=8 Male <=3 If HCG results do not concur with clinical observations, additional testing to confirm results is recommended. Elevated results not associated with may be found in patients with other diseases such as tumors of the germ cells (testis, ovaries, etc.), bladder, pancreas, stomach, lungs, and liver. Interpretation and review of laboratory results Abnormal [employer] Phone: [employer] Phone: COVID-19, MOLECULARon 2020 SARS-CoV-2 (COVID-19) Ab IA Ql Not detected Normal Not Detected [facility] Comment on above: Result Comment: This test was performed under the FDA's Emergency Use Authorization (EUA). Testing was performed using the [employer] ID NOW COVID-19 assay on the ID NOW platform. This test has not been approved for use in asymptomatic patients and its performance in this patient population has not been evaluated. Negative results do not rule out the presence of SARS-CoV-2/COVID-19. Fact sheets for the EUA can be found at the following links: For Healthcare Providers: https://www.fda.gov/media/417691/download For Patients: https://www.fda.gov/media/137017/download COVID-19, Molecularon 2020 SARS-CoV-2 (COVID-19) RdRp gene MARIA FERNANDA+probe Ql (Resp) Not detected Not Detected [facility] Comment on above: This test was perfor med under the FDA's Emergency Use Authorization (EUA). Testing was performed using the [employer] ID NOW COVID-19 assay on the ID NOW platform. This test has not been approved for use in asymptomatic patients and its performance in this patient population has not been evaluated. Negative results do not rule out the presence of SARS-CoV-2/COVID-19. Fact sheets for the EUA can be found at the following links: For Healthcare Providers: https://www.fda.gov/media/010927/download For Patients: https://www.fda.gov/media/015788/download SARS-CoV-2 (COVID-19) RdRp g mathew MARIA FERNANDA+probe Ql (Resp)on 03-25-2021 Interpretation and review of laboratory results Normal [facility] Cult,Urineon 03-12-2021 Cult,Urine Specimen Description .CLEAN CATCH URINE Special Requests NOT REPORTED Culture NO SIGNIFICANT GROWTH Report Status FINAL 03/12/2021 Normal [facility] Comment on above: Performed By: #### B HCG #### [facility] [address] [place] [address] School Commissioner: Harshal Austin MD Chlamydia/GC DNA, Uron 03-11 Chlamydia Probe, Ur Negative Normal NEG [facility] Comment on above: Result Comment: CHLA MYDIA TRACHOMATIS DNA not detected by nucleic acid amplification. This test is intended for medical purposes only and is not valid for the evaluation of suspected sexual abuse or for other forensic purposes. In certain contexts, culture may be required to meet applicable laws and regulations for diagnosis of C. trachomatis and N. gonorrhoeae infections. Per 2014 CDC recommendations, this test does not include confirmation of positive results by an alternative nucleic acid target. Performed By: #### U CGP #### [facility] [address] [place] [address] School Commissioner: Isak Guerrero MD Gonorrhea Probe, Ur Negative Normal NEG [facility] Comment on above: Result Comment: NEIS SERIA GONORRHOEAE DNA not detected by nucleic acid amplification. This test is intended for medical purposes only and is not valid for the evaluation of suspected sexual abuse or for other forensic purposes. In certain contexts, culture may be required to meet applicable laws and regulations for diagnosis of C. trachomatis and N. gonorrhoeae infections. Per 2014 CDC recommendations, this test does not include confirmation of positive results by an alternative nucleic acid target. Performed By: #### U CGP #### [facility] [address] [place] [address] School Commissioner: Isak Guerrero MD HIV Ag/Abon 03-11-2021 HIV Ag/Ab Non-Reactive Normal NR [facility] Comment on above: Result Comment: No l aboratory evidence of HIV infection. If acute HIV infection is suspected, consider testing for HIV-1 RNA. Performed By: #### H IVCMB, AHCV #### [facility] [address] [place] [id number] School Commissioner: Isak Guerrero MD HIV ScreenOrdered By: Bart Hassan on 03-11-2021 HIV Ag/Ab Non-Reactive NONREACTIVE [facility] Phone: Comment on above: No laboratory eviden ce of HIV infection. If acute HIV infection is suspected, consider testing for HIV-1 RNA. [employer] Phone: Hep C Abon 03-11-2021 Hep C Ab Non-Reactive Normal NR [facility] Comment on above: Result Comment: The hepatitis C procedure used in our laboratory is a Chemiluminescent test specific for three recombinant HCV antigens. A negative anti-HCV result indicates that the antibodies to hepatitis C virus are not present at this time. Individuals with reactive anti-HCV should be considered infected and infectious until proven otherwise. Confirmation of all equivocal or reactive results is recommended by ordering HCV RNA by PCR. Performed By: #### H IVCMB, AHCV #### [address] [address] School Commissioner: Isak Guerrero MD Profileon T.pallidum Ab Screen Non-Reactive Normal [facility] Comment on above: Result Comment: T. pallidum antibodies are not detected. There is no serological evidence of infection with T. pallidum (early primary syphilis cannot be excluded). Retest in 2-4 weeks if syphilis is clinically suspect. Performed By: #### P RENAT #### [address] [address] School Commissioner: Isak Guerrero MD [facility] [address] [place], [place] [phone] School Commissioner: Harshal Austin MD Hep B Surf Ag Non-Reactive Normal [facility] Comment on above: Performed By: #### P RENAT #### [address] [address] School Commissioner: Isak Guerrero MD [facility] [address] [place] [address] School Commissioner: Hrashal Austin MD Rubella Ab, IgG 36.9 IU/mL Normal [facility] Comment on above: Result Comment: REFERENCE RANGE: <5.0 NON-REACTIVE (non-immune) 5.0 TO 9.9 EQUIVOCAL >=10.0 REACTIVE (immune) Performed By: #### P RENAT #### [address] [address] School Commissioner: Isak Guerrero MD [facility] [address] [place], [place] [phone] School Commissioner: Harshal Austin MD Hepatitis C AntibodyOrdered By: Karlee Hassan on 03-10-2021 Hepatitis C Ab Non-Reactive NONREACTIVE [facility] Work Phone: Comment on above: The hepatitis C procedure used in our laboratory is a Chemiluminescent test specific for three recombinant HCV antigens. A negative anti-HCV result indicates that the antibodies to hepatitis C virus are not present at this time. Individuals with reactive anti-HCV should be considered infected and infectious until proven otherwise. Confirmation of all equivocal or reactive results is recommended by ordering HCV RNA by PCR. [employer] Phone: PROFILE IOrdered By : Karlee Hassan on 03-10-2021 Absolute Eos # 0.20 [employer] Phone: Absolute Immature Granulocyte NOT REPORTED [employer] Phone: Absolute Lymph # 2.50 [employer] Phone: Absolute Tillman # 0.30 [employer] Phone: Basophils (Bld) [#/Vol] 0.00 10*3/uL [employer] Phone: Basophils/100 WBC (Bld) 1 % 0 - 2 % [employer] Phone: Differential Type YES [employer] Phone: Eosinophils/100 WBC (Bld) 3 % 0 - 5 % [employer] Phone: Hematocrit (Bld) [Volume fraction] 36.9 % 36 - 46 % [employer] Phone: Hemoglobin.gastrointes tinal spec 1 Ql (Stl) 12.7 g/dL 12.0 - 16.0 g/dL [employer] Phone: Hepatitis B Surface Ag Non-Reactive NONREACTIVE [employer] Phone: Immature Granulocytes NOT REPORTED 0 % M [employer] Phone: Lymphocytes/100 WBC (Bld) 38 % 15 - 40 % [employer] Phone: MCH (RBC) [Entitic mass] 31.7 pg 26 - 34 pg [employer] Phone: MCHC (RBC) [Mass/Vol] 34.5 g/dL 31 - 37 g/dL [facility] Phone: MCV (RBC) [Entitic vol] 91.9 fL 80 - 100 fL [employer] Phone: Monocytes/100 WBC (Bld) 5 % 4 - 8 % [employer] Phone: NRBC Automated NOT REPORTED per 100 WBC [employer] Phone: Platelet distribution width (Bld) [Ratio] 12.8 % 12.1 - 15.2 % [employer] Phone: Platelet Estimate NOT REPORTED [employer] Phone: Platelet mean volume (Bld) [Entitic vol] NOT REPORTED 6.0 - 12.0 fL [employer] Phone: Platelets (Bld) [#/Vol] 169 10*3/uL [employer] Phone: RBC (Bld) [#/Vol] 4.01 10*6/uL 4.0 - 5.2 m/uL [employer] Phone: RBC (Bld) [#/Vol] NOT REPORTED [employer] Phone: Rubella virus IgG Ql (S) 36.9 IU/mL [employer] Phone: Comment on above: REFERENCE RANGE: <5.0 NON-REACTIVE (non-immune) 5.0 TO 9.9 EQUIVOCAL >=10.0 REACTIVE (immune) Segmented neutrophils/100 WBC (Bld) 53 % 47 - 75 % [employer] Phone: Segs Absolute 3.50 [employer] Phone: T. pallidum, IgG Non-Reactive NONREACTIVE [employer] Phone: Comment on above: T. pallidum antibodies are not detected. There is no serological evidence of infection with T. pallidum (early primary syphilis cannot be excluded). Retest in 2-4 weeks if syphilis is clinically suspect. WBC (Bld) [#/Vol] 6.6 10*3/uL [employer] Phone: WBC (Bld) [#/Vol] NOT REPORTED [employer] Phone: [employer] Phone: TYPE AND SCREENOrde red By: Karlee Hassan on 03-10-2021 ABO/Rh Positive [facility] Phone: [employer] Phone: Profileon Abs. Basophil 0.00 k/uL Normal 0.0-0.2 [facility] Comment on above: Performed By: #### P RENAT #### [address] [address] School Commissioner: Isak Guerrero MD [facility] [address] [facility] [place] [address] School Commissioner: Harshal Austin MD Abs.Neutrophil (Seg) 3.50 k/uL Normal 2.5-7.0 [facility] Comment on above: Performed By: #### P RENAT #### [address] [address] School Commissioner: Isak Guerrero MD [facility] [address] [place] [address] School Commissioner: Harshal Austin MD Auto Diff Performed YES Normal [facility] Comment on above: Performed By: #### P RENAT #### [address] [address] School Commissioner: Isak Guerrero MD [facility] [address] [place], [place] [phone] School Commissioner: Harshal Austin MD Basophils/100 WBC (Bld) 1 % Normal 0-2 [facility] Comment on above: Performed By: #### P RENAT #### [id number] [place] [address] School Commissioner: Isak Guerrero MD [facility] [address] [place] [id number] School Commissioner: Harshal Austin MD Eosinophils (Bld) [#/Vol] 0.20 10*3/uL Normal 0.0-0.4 [facility] Comment on above: Performed By: #### P RENAT #### [address] [address] School Commissioner: Isak Guerrero MD [facility] [address] [facility] [place] [address] School Commissioner: Harshal Austin MD Eosinophils/100 WBC (Bld) 3 % Normal 0-5 [facility] Comment on above: Performed By: #### P RENAT #### [place] [address] School Commissioner: Isak Guerrero MD [facility] [address] [place] [address] School Commissioner: Harshal Austin MD Erythrocyte distribution width (RBC) [Ratio] 12.8 % Normal 12.1-15.2 [facility] Comment on above: Performed By: #### P RENAT #### [address] [address] School Commissioner: Isak Guerrero MD [facility] [address] [place] [address] School Commissioner: Harshal Austin MD Hematocrit (Bld) [Volume fraction] 36.9 % Normal 36-46 [facility] Comment on above: Performed By: #### P RENAT #### [address] [place] [address] School Commissioner: Isak Guerrero MD [facility] [address] [place], [place] [phone] School Commissioner: Harshal Austin MD Hemoglobin (Bld) [Mass/Vol] 12.7 g/dL Normal 12.0-16.0 [facility] Comment on above: Performed By: #### P RENAT #### [address] [address] School Commissioner: Isak Guerrero MD [facility] [address] [place], [place] [id number] School Commissioner: Harshal Austin MD Lymphocytes (Bld) [#/Vol] 2.50 10*3/uL Normal 1.0-4.8 [facility] Comment on above: Performed By: #### P RENAT #### [address] [address] School Commissioner: Isak Guerrero MD [facility] [address] [place], [place] [id number] School Commissioner: Harshal Austin MD Lymphocytes/100 WBC (Bld) 38 % Normal 15-40 [facility] Comment on above: Performed By: #### P RENAT #### [address] [address] School Commissioner: Isak Guerrero MD [facility] [address] [place], [place] [id number] School Commissioner: Harshal Austin MD MCH (RBC) [Entitic mass] 31.7 pg Normal 26-34 [facility] Comment on above: Performed By: #### P RENAT #### [facility] [address] [place] [address] School Commissioner: Isak Guerrero MD [facility] [address] [place], [place] [phone] School Commissioner: Harshal Austin MD MCHC (RBC) [Mass/Vol] 34.5 g/dL Normal 31-37 [facility] Comment on above: Performed By: #### P RENAT #### [facility] [address] [place] [address] School Commissioner: Isak Guerrero MD [facility] [address] [place], [place] [phone] School Commissioner: Harshal Austin MD MCV (RBC) [Entitic vol] 91.9 fL Normal 80-100 [facility] Comment on above: Performed By: #### P RENAT #### [address] [address] School Commissioner: Isak Guerrero MD [facility] [address] [place] [address] School Commissioner: Harshal Austin MD Monocytes (Bld) [#/Vol] 0.30 10*3/uL Normal 0.0-1.0 [facility] Comment on above: Performed By: #### P RENAT #### [facility] [address] [place] [address] School Commissioner: Isak Guerrero MD [facility] [address] [place] [address] School Commissioner: Harshal Austni MD Monocytes/100 WBC (Bld) 5 % Normal 4-8 [facility] Comment on above: Performed By: #### P RENAT #### [facility] [address] [place] [address] School Commissioner: Isak Guerrero MD [facility] [address] [place], [place] [phone] School Commissioner: Harshal Austin MD Neutrophil (Seg) 53 % Normal 47-75 [facility] Comment on above: Performed By: #### P RENAT #### [facility] [address] [place] [address] School Commissioner: Isak Guerrero MD [facility] [address] [place], [place] [phone] School Commissioner: Harshal Austin MD Platelets (Bld) [#/Vol] 169 10*3/uL Normal 140-450 [facility] Comment on above: Performed By: #### P RENAT #### [facility] [address] [place], [place] [phone] School Commissioner: Isak Guerrero MD [facility] [address] [place], [place] [phone] School Commissioner: Harshal Austin MD RBC (Bld) [#/Vol] 4.01 10*6/uL Normal 4.0-5.2 [facility] Comment on above: Performed By: #### P RENAT #### [address] [address] School Commissioner: Isak Guerrero MD [facility] [address] [place], [place] [phone] School Commissioner: Harshal Austin MD WBC (Bld) [#/Vol] 6.6 10*3/uL Normal 3.5-11.0 [facility] Comment on above: Performed By: #### P RENAT #### [address] [address] School Commissioner: Isak Guerrero MD [facility] [address] [place] [address] School Commissioner: Harshal Austin MD Abs.Imm.Granulocyte NOT REPORTED Normal 0.00-0.30 [facility] Comment on above: Performed By: #### P RENAT #### [facility] [address] [place] [address] School Commissioner: Iask Guerrero MD [facility] [address] [place], [place] [phone] School Commissioner: Harshal Austin MD Immature Granulocyte NOT REPORTED Normal 0 [facility] Comment on above: Performed By: #### P RENAT #### [facility] [address] [place] [address] School Commissioner: Isak Guerrero MD [facility] [address] [place] [address] School Commissioner: Harshal Austin MD MPV NOT REPORTED Normal 6.0-12.0 [facility] Comment on above: Performed By: #### P RENAT #### [facility] [address] [place] [address] School Commissioner: Isak Guerrero MD [facility] [address] [place] [address] School Commissioner: Harshal Austin MD NRBC Automated NOT REPORTED Normal [facility] Comment on above: Performed By: #### P RENAT #### [address] [address] School Commissioner: Isak Guerrero MD [facility] [address] [place] [address] School Commissioner: Harshal Austin MD Platelet Estimate NOT REPORTED Normal [facility] Comment on above: Performed By: #### P RENAT #### [facility] [address] [place] [address] School Commissioner: Isak Guerrero MD [facility] [address] [place] [address] School Commissioner: Harshal Austin MD RBC morphology finding Nom (Bld) NOT REPORTED Normal [facility] Comment on above: Performed By: #### P RENAT #### [facility] [address] [place] [address] School Commissioner: Isak Guerrero MD [facility] [address] [place] [address] School Commissioner: Harshal Austin MD WBC Morphology NOT REPORTED Normal [facility] Comment on above: Performed By: #### P RENAT #### [facility] [address] [place], [place] [phone] School Commissioner: Isak Guerrero MD [facility] [address] [place] [address] School Commissioner: Harshal Austin MD Type + Scrnon 03-10 Type + Scrn Negative Normal [facility] Comment on above: Performed By: #### B HCG #### [facility] [address] [place] [address] School Commissioner: Harshal Austin MD Toxicology Scree, Urineon Amphetamine(s),Ur Negative Normal NEG [facility] Comment on above: Result Comment: (Positive cutoff 500 ng/mL) Performed By: #### C PDAU #### [facility] [address] [place] [address] School Commissioner: Harshal Austin MD Barbiturate(s),Ur Negative Normal NEG [facility] Comment on above: Result Comment: (Positive cutoff 200 ng/mL) Performed By: #### C PDAU #### [facility] [address] [place] [address] School Commissioner: Harshal Austin MD Benzodiazepine(s) Negative Normal NEG [facility] Comment on above: Result Comment: (Positive cutoff 150 ng/mL) Performed By: #### C PDAU #### [facility] [address] [place], [place] [phone] School Commissioner: Harshal Austin MD Cannabinoid(s),Ur Negative Normal NEG [facility] Comment on above: Result Comment: (Positive cutoff 50 ng/mL) Performed By: #### C PDAU #### [facility] [address] [place] [address] School Commissioner: Harshal Austin MD Cocaine Metabolite Negative Normal NEG [facility] Comment on above: Result Comment: (Positive cutoff 150 ng/mL) Performed By: #### C PDAU #### [facility] [address] [place] [address] School Commissioner: Harshal Austin MD Methadone Negative Normal NEG [facility] Comment on above: Result Comment: (Positive cutoff 200 ng/mL) Performed By: #### C PDAU #### [facility] [address] [place] [address] School Commissioner: Harshal Austin MD Methamphetamine, Ur Negative Normal NEG [facility] Comment on above: Result Comment: (Positive cutoff 500 ng/mL) Performed By: #### C PDAU #### [facility] [address] [place] [address] School Commissioner: Harshal Austin MD Opiate(s), Ur Negative Normal NEG [facility] Comment on above: Result Comment: (Positive cutoff 100 ng/mL) Performed By: #### C PDAU #### [facility] [address] [place] [address] School Commissioner: Harshal Austin MD Oxycodone, Urine Negative Normal NEG [facility] Comment on above: Result Comment: (Positive cutoff 100 ng/mL) Performed By: #### C PDAU #### [facility] [address] [place] [address] School Commissioner: Harshal Austin MD Phencyclidine, Ur Negative Normal NEG [facility] Comment on above: Result Comment: (Positive cutoff 25 ng/mL) Performed By: #### C PDAU #### [facility] [address] [place] [address] School Commissioner: Harshal Austin MD Propoxyphene,Urine Negative Normal NEG [facility] Comment on above: Result Comment: (Positive cutoff 300 ng/mL) Performed By: #### C PDAU #### [facility] [address] [place] [address] School Commissioner: Harshal Austin MD Tricyclic Antidepressants Negative Normal NEG [facility] Comment on above: Result Comment: (Positive cutoff 300 ng/mL) Drug screen results are to be used for medical purposes only. All positive results are unconfirmed. Testing for employment or legal uses should be sent to a reference laboratory for confirmation. Performed By: #### C PDAU #### [facility] [address] [place], [place] [id number] School Commissioner: Harshal Austin MD Buprenorphrine, Ur NOT REPORTED Normal NEG [facility] Comment on above: Performed By: #### C PDAU #### [facility] [address] [place], [place] [phone] School Commissioner: Harshal Austin MD Interpretive Info NOT REPORTED Normal [facility] Comment on above: Performed By: #### C PDAU #### [facility] [address] [place], [place] [phone] School Commissioner: Harshal Austin MD MDMA, Urine NOT REPORTED Normal NEG [facility] Comment on above: Performed By: #### C PDAU #### [facility] [address] [place], [place] [phone] School Commissioner: Harshal Austin MD Urine Drug Screen, Comprehen siveOrdered By: Karlee Hassan on 03-10-2021 Amphetamine Screen, Ur Negative NEGATIVE [facility] Work Phone: Comment on above: (Positive cutoff 500 ng/mL) Barbiturate Screen, Ur Negative NEGATIVE [facility] Work Phone: Comment on above: (Positive cutoff 200 ng/mL) Benzodiazepine Screen, Urine Negative NEGATIVE [facility] Work Phone: Comment on above: (Positive cutoff 150 ng/mL) Buprenorphine Urine NOT REPORTED NEGATIVE [facility] Work Phone: Cannabinoid Scrn, Ur Negative NEGATIVE [facility] Work Phone: Comment on above: (Positive cutoff 50 ng/mL) Cocaine Metabolite, Urine Negative NEGATIVE [employer] Phone: Comment on above: (Positive cutoff 150 ng/mL) MDMA, Urine NOT REPORTED NEGATIVE [employer] Phone: Methadone Screen, Urine Negative NEGATIVE [employer] Phone: Comment on above: (Positive cutoff 200 ng/mL) Methamphetamine, Urine Negative NE[facility]IVE [facility] Work Phone: Comment on above: (Positive cutoff 500 ng/mL) Opiates, Urine Negative NEGATIVE [employer] Phone: Comment on above: (Positive cutoff 100 ng/mL) Oxycodone Screen, Ur Negative NEGATIVE [employer] Phone: Comment on above: (Positive cutoff 100 ng/mL) Phencyclidine, Urine Negative NEGATIVE [employer] Phone: Comment on above: (Positive cutoff 25 ng/mL) Propoxyphene, Urine Negative NEGATIVE [employer] Phone: Comment on above: (Positive cutoff 300 ng/mL) Test Information NOT REPORTED [employer] Phone: Tricyclic Antidepressants, Urine Negative NEGATIVE [employer] Phone: Comment on above: (Positive cutoff 300 ng/mL) Drug screen results are to be used for medical purposes only. All positive results are unconfirmed. Testing for employment or legal uses should be sent to a reference laboratory for confirmation. [employer] Phone: HCG ( test) Ql (U)o n 03-03-2021 HCG.beta subunit [Moles/Vol] Positive [facility] Interpretation and review of laboratory results Abnormal [facility] All internal control s were present [facility] POCT ALERE DRUG SCREENon Amphetamine (AMP), poct Negative [facility] Barbiturates (BAR), poct Negative [facility] Buprenorphine Glucuronide (BUPG),poct Positive [facility] COCAINE (NADIRA), POCT Negative [facility] Ecstasy (MDMA), poct Negative [facility] Interpretation and review of laboratory results Normal [facility] Marijuana (THC), poct Negative [facility] Comment on above: temp 90 urine was no t witnessed Methadone (MTD), poct Negative [facility] Methamphetamine (mAMP/MET), poct Negative [facility] Nortripyline (TCA), poct Negative [facility] Opiate (OPI), poct Negative [facility] OXAZEPAM (BZO),POCT Negative [facility] Oxycodone (OXY), poct Negative [facility] Phencyclidine (PCP), poct Negative [facility] Propoxyphene (PPX), poct Negative [facility] All internal control s were present [facility] POCT ALERE DRUG SCREENon Amphetamine (AMP), poct Negative [facility] Barbiturates (BAR), poct Negative [facility] Buprenorphine Glucuronide (BUPG),poct Positive [facility] COCAINE (NADIRA), POCT Negative [facility] Ecstasy (MDMA), poct Negative [facility] Interpretation and review of laboratory results Normal [facility] Marijuana (THC), poct Negative [facility] Comment on above: temp 94 urine was no t witnessed Methadone (MTD), poct Negative [facility] Methamphetamine (mAMP/MET), poct Negative [facility] Nortripyline (TCA), poct Negative [facility] Opiate (OPI), poct Negative [facility] OXAZEPAM (BZO),POCT Negative [facility] Oxycodone (OXY), poct Negative [facility] Phencyclidine (PCP), poct Negative [facility] Propoxyphene (PPX), poct Negative [facility] All internal control s were present [facility] POCT ALERE DRUG SCREENOrdere d By: Radha Benavides on 01-29-2021 Amphetamine (AMP), poct Negative [facility] Barbiturates (BAR), poct Negative [facility] Buprenorphine Glucuronide (BUPG),poct Positive [facility] COCAINE (NADIRA), POCT Negative [facility] Ecstasy (MDMA), poct Negative [facility] Interpretation and review of laboratory results Normal [facility] Marijuana (THC), poct Negative [facility] Comment on above: temperature is 94, c ollection was not witnessed Methadone (MTD), poct Negative [facility] Methamphetamine (mAMP/MET), poct Negative [facility] Nortripyline (TCA), poct Negative [facility] Opiate (OPI), poct Negative [facility] OXAZEPAM (BZO),POCT Negative [facility] Oxycodone (OXY), poct Negative [facility] Phencyclidine (PCP), poct Negative [facility] Propoxyphene (PPX), poct Negative [facility] All internal control s are positive [facility] POCT URINE DIPSTICK AUTOMATE DOrdered By: Radha Benavides on 01-29-2021 Amorphous sediment LM Ql (Urine sed) not tested [facility] Appearance (U) cloudy [facility] Bacteria LM Ql (Urine sed) not tested [facility] Bilirubin Ql (U) Negative [facility] Casts LM.LPF (Urine sed) [#/Area] not tested [facility] Color (U) yellow [facility] Crystals LM Nom (Urine sed) not tested [facility] Epithelial cells.squamous LM.HPF (Urine sed) [#/Area] not tested [facility] Flow cytometry specialist review Malik (Unsp spec) [Interp] not tested [facility] Glucose Auto test strip (U) [Mass/Vol] Negative mg/dL [facility] Interpretation and review of laboratory results Abnormal [facility] Ketones [Mass/Vol] Negative mg/dL [facility] Leukocyte esterase Qn (U) not tested [facility] Leukocyte esterase Test strip Ql (U) large [facility] Microscopic observation Gram stain Nom (Bronch spec) not tested [facility] Nitrite Ql (U) Positive [facility] pH (U) 5.5 [pH] [facility] Protein Ql (U) trace mg/dL [facility] RBC LM.HPF (Urine sed) [#/Area] not tested [facility] RBC Ql (U) trace-lysed [facility] Specific gravity (U) [Rel density] >=1.030 [facility] Transitional cells LM Ql (Urine sed) not tested [facility] Urobilinogen Qn (U) 0.2 [facility] WBC LM.HPF (Urine sed) [#/Area] not tested [facility] No internal control [facility] POCT ALERE DRUG SCREENOrdere d By: Radha Benavides on 01-01-2021 Amphetamine (AMP), poct Negative [facility] Barbiturates (BAR), poct Negative [facility] Buprenorphine Glucuronide (BUPG),poct Positive [facility] COCAINE (NADIRA), POCT Negative [facility] Ecstasy (MDMA), poct Negative [facility] Interpretation and review of laboratory results Normal [facility] Marijuana (THC), poct Negative [facility] Comment on above: Temp 94 urine was no t witnessed Methadone (MTD), poct Negative [facility] Methamphetamine (mAMP/MET), poct Negative [facility] Nortripyline (TCA), poct Negative [facility] Opiate (OPI), poct Negative [facility] OXAZEPAM (BZO),POCT Negative [facility] Oxycodone (OXY), poct Negative [facility] Phencyclidine (PCP), poct Negative [facility] Propoxyphene (PPX), poct Negative [facility] All internal control s were present [facility] POCT ALERE DRUG SCREENOrdere d By: Radha Benavides on 12-04-2020 Amphetamine (AMP), poct Negative [facility] Barbiturates (BAR), poct Negative [facility] Buprenorphine Glucuronide (BUPG),poct Positive [facility] COCAINE (NADIRA), POCT Negative [facility] Ecstasy (MDMA), poct Negative [facility] Interpretation and review of laboratory results Normal [facility] Marijuana (THC), poct Negative [facility] Comment on above: Temp 94 urine was no t witnessed Methadone (MTD), poct Negative [facility] Methamphetamine (mAMP/MET), poct Negative [facility] Nortripyline (TCA), poct Negative [facility] Opiate (OPI), poct Negative [facility] OXAZEPAM (BZO),POCT Negative [facility] Oxycodone (OXY), poct Negative [facility] Phencyclidine (PCP), poct Negative [facility] Propoxyphene (PPX), poct Negative [facility] All internal control s were present [facility] POCT ALERE DRUG SCREENOrdere d By: Radha Benavides on 11-20-2020 Amphetamine (AMP), poct Negative [facility] Barbiturates (BAR), poct Negative [facility] Buprenorphine Glucuronide (BUPG),poct Positive [facility] COCAINE (NADIRA), POCT Negative [facility] Ecstasy (MDMA), poct Negative [facility] Interpretation and review of laboratory results Normal [facility] Marijuana (THC), poct Negative [facility] Comment on above: temperature is 90, c ollection was not witnessed Methadone (MTD), poct Negative [facility] Methamphetamine (mAMP/MET), poct Negative [facility] Nortripyline (TCA), poct Negative [facility] Opiate (OPI), poct Negative [facility] OXAZEPAM (BZO),POCT Negative [facility] Oxycodone (OXY), poct Negative [facility] Phencyclidine (PCP), poct Negative [facility] Propoxyphene (PPX), poct Negative [facility] All internal control s are positive [facility] POCT ALERE DRUG SCREENOrdere d By: Radha Benavides on 11-06-2020 Amphetamine (AMP), poct Negative [facility] Barbiturates (BAR), poct Negative [facility] Buprenorphine Glucuronide (BUPG),poct Positive [facility] COCAINE (NADIRA), POCT Negative [facility] Ecstasy (MDMA), poct Negative [facility] Interpretation and review of laboratory results Normal [facility] Marijuana (THC), poct Negative [facility] Comment on above: temperature is 90, c ollection was not witnessed Methadone (MTD), poct Negative [facility] Methamphetamine (mAMP/MET), poct Negative [facility] [employer] (TCA), poct Negative [facility] Opiate (OPI), poct Negative [facility] OXAZEPAM (BZO),POCT Negative [facility] Oxycodone (OXY), poct Negative [facility] Phencyclidine (PCP), poct Negative [facility] Propoxyphene (PPX), poct Negative [facility] All internal control s are positive [facility] POCT ALERE DRUG SCREENon Amphetamine (AMP), poct Negative [facility] Barbiturates (BAR), poct Negative [facility] Buprenorphine Glucuronide (BUPG),poct Positive [facility] COCAINE (NADIRA), POCT Negative [facility] Ecstasy (MDMA), poct Negative [facility] Interpretation and review of laboratory results Normal [facility] Methadone (MTD), poct Negative [facility] Methamphetamine (mAMP/MET), poct Negative [facility] [employer] (TCA), poct Negative [facility] Opiate (OPI), poct Negative [facility] OXAZEPAM (BZO),POCT Negative [facility] Oxycodone (OXY), poct Negative [facility] Phencyclidine (PCP), poct Negative [facility] Propoxyphene (PPX), poct Negative [facility] All internal control s are positive [facility] POCT ALERE DRUG SCREENon Amphetamine (AMP), poct Negative [facility] Barbiturates (BAR), poct Negative [facility] Buprenorphine Glucuronide (BUPG),poct Positive [facility] COCAINE (NADIRA), POCT Negative [facility] Ecstasy (MDMA), poct Negative [facility] Interpretation and review of laboratory results Normal [facility] Methadone (MTD), poct Negative [facility] Methamphetamine (mAMP/MET), poct Negative [facility] Nort[employer]yline (TCA), poct Negative [facility] Opiate (OPI), poct Negative [facility] OXAZEPAM (BZO),POCT Negative [facility] Oxycodone (OXY), poct Negative [facility] Phencyclidine (PCP), poct Negative [facility] Propoxyphene (PPX), poct Negative [facility] All internal control s are positive [facility] POCT ALERE DRUG SCREENon Amphetamine (AMP), poct Negative [facility] Barbiturates (BAR), poct Negative [facility] Buprenorphine Glucuronide (BUPG),poct Positive [facility] COCAINE (NADIRA), POCT Negative [facility] Ecstasy (MDMA), poct Negative [facility] Interpretation and review of laboratory results Normal [facility] Marijuana (THC), poct Negative [facility] Comment on above: temp 94 urine was no t witnessed Methadone (MTD), poct Negative [facility] Methamphetamine (mAMP/MET), poct Negative [facility] Nortripyline (TCA), poct Negative [facility] Opiate (OPI), poct Negative [facility] OXAZEPAM (BZO),POCT Negative [facility] Oxycodone (OXY), poct Negative [facility] Phencyclidine (PCP), poct Negative [facility] Propoxyphene (PPX), poct Negative [facility] All internal control s were present [facility] TSH W/FT4 REFLEXon TSH Qn 0.911 m[IU]/L [facility] Comment on above: Testing performed at [address] VITAMIN B12on 10-02-2020 Cobalamin (Vitamin B12) [Mass/Vol] 541 pg/mL 239 - 931 PG/ML [facility] Comment on above: Testing performed at [address] VITAMIN D (25-HYDROXY,TOTAL) on 10-02-2020 25-Hydroxyvitamin D2+25-Hydroxyvitamin D3 [Mass/Vol] 27.2 NG/ML [facility] Comment on above: DEFICIENT <20 NG/ML INSUFFICIENT 20-<30 NG/ML SUFFICIENT 30-100 NG/ML POTENTIAL TOXICITY >100 NG/ML Testing performed at [address] HEPATITIS A IGM ABon 021 HAV IgM IA Ql Negative [facility] Comment on above: Reference range: Neg ative PERFORMED AT [facility] POCT ALERE DRUG SCREENon Amphetamine (AMP), poct Negative [facility] Barbiturates (BAR), poct Negative [facility] Buprenorphine Glucuronide (BUPG),poct Postive [facility] Comment on above: Active prescription for Dr. Cox COCAINE (NADIRA), POCT Negative [facility] Ecstasy (MDMA), poct Negative [facility] Interpretation and review of laboratory results Normal [facility] Marijuana (THC), poct Negative [facility] Comment on above: Temp. 94. Collection not witnessed. Methadone (MTD), poct Negative [facility] Methamphetamine (mAMP/MET), poct Negative [facility] Nortripyline (TCA), poct Negative [facility] Opiate (OPI), poct Negative [facility] OXAZEPAM (BZO),POCT Negative [facility] Oxycodone (OXY), poct Negative [facility] Phencyclidine (PCP), poct Negative [facility] Propoxyphene (PPX), poct Negative [facility] All internal control s are positive. [facility] POCT URINE PREGNANCYon 09-29 HCG.beta subunit Qn Negative [facility] Interpretation and review of laboratory results Normal [facility] All internal control s are positive. [facility] HEPATITIS A, B, Con 09-27-19 21 HBV surface Ag IA Ql Negative NEGATIVE [facility] Hep A AB (IGG + IGM) Positive Abnormal NEGATIVE [facility] Comment on above: Specimen is positive for HAV, sent to reference lab for HAVAb, IgM. Positive indicates a reactive sample and the presence of HAV Ab, individual has been previously infected or is presumed to be immune to HAV infection. HEP B CORE AB,TOTAL(IGG+IGM) Negative NEGATIVE [facility] Hep B Surf AB Negative Abnormal POSITIVE [facility] Comment on above: Clinical Interpretation of Immune Status Negative: patient is considered to be not immune to infection with HBV Intermediate: unable to determine if anti-HBs is present at levels consistent with immunity Positive: anti-HBs detected, patient is considered to be immune to infection with HBV HEP C AB Negative NEGATIVE [facility] Interpretation and review of laboratory results Abnormal [facility] CBC, EDIF, PLATELETon 2020 Band form neutrophils/100 WBC (Bld) <10% BANDS PRESENT [facility] Differential cell count method Nom (Bld) MANUAL DIFF % [facility] Eosinophils/100 WBC (Bld) 3 % 0 - 7.0 % [facility] Erythrocyte distribution width (RBC) [Ratio] 13.6 % 11.5 - 14.5 % [facility] Hematocrit (Bld) [Volume fraction] 41.3 % 36.0 - 48.0 % [facility] Hemoglobin (Bld) [Mass/Vol] 14.2 g/dL [facility] Immature granulocytes/100 WBC (Bld) 4 % [facility] Interpretation and review of laboratory results Abnormal [facility] Lymphocytes/100 WBC (Bld) 50 % 20.5 - 51.1 % [facility] MCH (RBC) [Entitic mass] 32.0 pg 26.0 - 35.0 PG [facility] MCHC (RBC) [Mass/Vol] 34.4 g/dL [facility] MCV (RBC) [Entitic vol] 92.8 fL [facility] Monocytes/100 WBC (Bld) 4 % 1.7 - 10.0 % [facility] Neutrophils/100 WBC (Bld) 39 % Low 42.2 - 75.2 % [facility] Platelet mean volume (Bld) [Entitic vol] 10.4 fL [facility] Platelet morphology finding Nom (Bld) ADEQUATE [facility] Comment on above: Testing performed at [place], [place] [address] Platelets (Bld) [#/Vol] 192 10*3/uL 130.0 - 400.0 10*3/uL [facility] RBC (Bld) [#/Vol] 4.45 10*6/uL 4.0 - 5.4 10*6/uL [facility] RBC morphology finding Nom (Bld) NORMAL [facility] WBC (Bld) [#/Vol] 6.6 10*3/uL 3.6 - 11.0 10*3/uL [facility] COMPREHENSIVE METABOLIC PANE Antwon 09-25-2020 Albumin [Mass/Vol] 4.3 G/dl 3.5 - 5.0 G/dl [facility] Albumin/Globulin [Mass ratio] 1.3 {ratio} [facility] ALP [Catalytic activity/Vol] 68 U/L [facility] ALT [Catalytic activity/Vol] 11 U/L <35 IU/L [facility] AST [Catalytic activity/Vol] 26 U/L [facility] Bilirubin [Mass/Vol] 0.3 mg/dL [facility] Calcium [Mass/Vol] 9.4 mg/dL [facility] Chloride [Moles/Vol] 102 mmol/L [facility] Comment on above: Please note: Triglyc eride levels of 600mg/dL or higher may positively bias chloride results by approximately 2.1 mmol CO2 [Moles/Vol] 26 mmol/L [facility] Creatinine [Mass/Vol] 0.80 mg/dL [facility] GFR/1.73 sq M predicted among blacks MDRD (S/P/Bld) [Vol rate/Area] mL/min/{1.73_m2} ml/min/1.73s q.m [facility] GFR/1.73 sq M predicted among non-blacks MDRD (S/P/Bld) [Vol rate/Area] mL/min/{1.73_m2} ml/min/1.73s q.m [facility] GFR/1.73 sq M predicted among non-blacks MDRD (S/P/Bld) [Vol rate/Area] Average GFR for 20-29 years old = 116. [facility] Comment on above: Chronic Kidney disea se, GFR = <60. Kidney failure, GFR = <15. The GFR estimate is not adjusted for extreme body surface area or acute process, nor has it been validated for women or ethnic groups other than and . Testing performed at [place], [place] [address] Glucose post fast [Mass/Vol] 77 mg/dL [facility] Comment on above: NORMAL <100 mg/dL PREDIABETES 101-126 mg/dL DIABETES 126 mg/dL or higher Potassium [Moles/Vol] 4.3 mmol/L [facility] Protein [Mass/Vol] 7.5 g/dL [facility] Sodium [Moles/Vol] 137 mmol/L [facility] Urea nitrogen [Mass/Vol] 13 mg/dL [facility] HIV 1 AND 2 ANTIBODIESon HIV 1+2 Ab IA Ql NONREACTIVE NONREACTIVE [facility] Comment on above: Testing performed at [address] Basic Metabolic Panel w/ Ref rory to MGon 01-22-2020 Anion gap [Moles/Vol] 10 mmol/L 9 - 17 mmol/L [place] Bun/Cre Ratio 12 [place] Calcium [Mass/Vol] 10.6 mg/dL High 8.6 - 10. 4 mg/dL [place] Chloride [Moles/Vol] 101 mmol/L 98 - 10 7 mmol/L [place] CO2 [Moles/Vol] 25 mmol/L 20 - 31 mmol/L [place] Creatinine [Mass/Vol] 0.85 mg/dL 0.5 - 0.9 mg/dL [place] GFR >60 >60 mL/min [place] GFR Non- >60 >60 mL/min [place] GFR/1.73 sq M predicted among non-blacks MDRD (S/P/Bld) [Vol rate/Area] [place] Comment on above: Average GFR for 20-2 9 years old: 116 mL/min/1.73sq m Chronic Kidney Disease: <60 mL/min/1.73sq m Kidney failure: <15 mL/min/1.73sq m eGFR calculated using average adult body mass. Additional eGFR calculator available at: http://www.[employer].com/multiple_crcl_2012.htm GFR/1.73 sq M predicted among non-blacks MDRD (S/P/Bld) [Vol rate/Area] NOT REPORTED [place] Glucose [Mass/Vol] 93 mg/dL 70 - 99 mg/dL [place] Interpretation and review of laboratory results Abnormal [place] Potassium [Moles/Vol] 4.2 mmol/L 3.7 - 5.3 mmol/L [place] Sodium [Moles/Vol] 136 mmol/L 135 - 144 mmol/L [place] Urea nitrogen [Mass/Vol] 10 mg/dL 6 - 20 mg/dL [place] CBC Auto Differentialon 07 Basophils (Bld) [#/Vol] 0.10 10*3/uL [place] Basophils/100 WBC (Bld) 1 % 0 - 2 % [place] Differential Type YES [place] Eosinophils (Bld) [#/Vol] 0.20 10*3/uL [place] Eosinophils/100 WBC (Bld) 2 % 0 - 5 % [place] Erythrocyte distribution width (RBC) [Ratio] 14.1 % 12.1 - 15.2 % [place] Hematocrit (Bld) [Volume fraction] 41.2 % 36 - 46 % [place] Hemoglobin (Bld) [Mass/Vol] 14.3 g/dL 12 - 16 g/dL [place] Lymphocytes (Bld) [#/Vol] 2.50 10*3/uL [place] Lymphocytes/100 WBC (Bld) 37 % 15 - 40 % [place] MCH (RBC) [Entitic mass] 31.7 pg 26 - 34 pg [place] MCHC (RBC) [Mass/Vol] 34.8 g/dL 31 - 37 g/dL [place] MCV (RBC) [Entitic vol] 91.3 fL 80 - 100 fL [place] Monocytes (Bld) [#/Vol] 0.40 10*3/uL [place] Monocytes/100 WBC (Bld) 6 % 4 - 8 % [place] Platelet mean volume (Bld) [Entitic vol] NOT REPORTED 6 - 12 fL [place] Platelets (Bld) [#/Vol] NOT REPORTED [place] Platelets (Bld) [#/Vol] 198 10*3/uL [place] RBC (Bld) [#/Vol] 4.51 10*6/uL 4 - 5.2 m/uL [place] RBC morphology finding Nom (Bld) NOT REPORTED [place] Segmented neutrophils/100 WBC (Bld) 54 % 47 - 75 % [place] Segs Absolute 3.60 [place] WBC (Bld) [#/Vol] 6.6 10*3/uL [place] WBC (Bld) [#/Vol] NOT REPORTED per 100 WBC [place] WBC Morphology NOT REPORTED [place] HCG Qualitative, Serumon hCG Qual Negative NEGATIVE [place] Comment on above: Specimens with hCG l evels near the threshold of the test (25 mIU/mL) may give a negative or indeterminate result. In such cases, another test should be performed with a new specimen in 48-72 hours. If early is suspected clinically in this setting, correlation with quantitative serum b-hCG level is suggested. [facility] has confirmed the use of plasma for this test. This has not been cleared or approved by the U.S. Food and Drug Administration. The FDA has determined that such clearance is not necessary. Otheron 01-22-2020 Immature granulocytes (Bld) [#/Vol] NOT REPORTED [place] XR CHEST PORTABLEon 01-22-20 20 EXAM: Portable chest REASON FOR EXAM: Productive cough for a week with headache for 3 days. TECHNIQUE: A portable frontal view of the chest was obtained. COMPARISON: None. FINDINGS: The lungs are well-inflated and clear. The heart and mediastinum are normal. There is no mass or pathologic adenopathy. Osseous structures are normal. [place] Abiodun, Mhpn Incoming Radiant Results From [facility] - 01/22/2020 3:05 PM EDT EXAM: Portable chest REASON FOR EXAM: Productive cough for a week with headache for 3 days. TECHNIQUE: A portable frontal view of the chest was obtained. COMPARISON: None. FINDINGS: The lungs are well-inflated and clear. The heart and mediastinum are normal. There is no mass or pathologic adenopathy. Osseous structures are normal. IMPRESSION: No acute cardiopulmonary process. [place] No acute cardiopulmo nary process. [place] Wet prep, genitalon 12-18-19 20 Direct Exam CLUE CELLS SEEN Abnormal [place] Direct Exam NO TRICHOMONAS SEEN [place] Direct Exam NO YEAST OBSERVED [place] Interpretation and review of laboratory results Abnormal [place] Special Requests NOT REPORTED [place] Specimen Description .VAGINAL SPECIMEN [place] Hepatic Function Panelon Albumin [Mass/Vol] 4.1 g/dL 3.5 - 5.2 g/dL [place] Albumin/Globulin [Mass ratio] 1.3 {ratio} [place] ALP [Catalytic activity/Vol] 61 U/L 35 - 104 U/L [place] ALT [Catalytic activity/Vol] 9 U/L 5 - 33 U/L [place] AST [Catalytic activity/Vol] 14 U/L <32 [place] Bilirubin Ql (U) 0.25 mg/dL Low 0.3 - 1.2 mg/dL [place] Bilirubin, Indirect CANNOT BE CALCULATED 0 - 1 mg/dL [place] Bilirubin.direct [Mass/Vol] mg/dL <0.31 mg/dL [place] Globulin (S) [Mass/Vol] NOT REPORTED 1.5 - 3.8 g/dL [place] Interpretation and review of laboratory results Abnormal [place] Protein [Mass/Vol] 7.2 g/dL 6.4 - 8.3 g/dL [place] CBC Auto Differentialon Basophils (Bld) [#/Vol] 0.00 10*3/uL [place] Basophils/100 WBC (Bld) 0 % 0 - 2 % [place] Differential Type YES [place] Eosinophils (Bld) [#/Vol] 0.20 10*3/uL [place] Eosinophils/100 WBC (Bld) 2 % 0 - 5 % [place] Erythrocyte distribution width (RBC) [Ratio] 12.9 % 12.1 - 15.2 % [place] Hematocrit (Bld) [Volume fraction] 41.0 % 36 - 46 % [place] Hemoglobin (Bld) [Mass/Vol] 13.8 g/dL 12 - 16 g/dL [place] Interpretation and review of laboratory results Abnormal [place] Lymphocytes (Bld) [#/Vol] 1.60 10*3/uL [place] Lymphocytes/100 WBC (Bld) 13 % Low 15 - 40 % [place] MCH (RBC) [Entitic mass] 30.9 pg 26 - 34 pg [place] MCHC (RBC) [Mass/Vol] 33.8 g/dL 31 - 37 g/dL [place] MCV (RBC) [Entitic vol] 91.4 fL 80 - 100 fL [place] Monocytes (Bld) [#/Vol] 0.90 10*3/uL [place] Monocytes/100 WBC (Bld) 7 % 4 - 8 % [place] Platelet mean volume (Bld) [Entitic vol] NOT REPORTED 6 - 12 fL [place] Platelets (Bld) [#/Vol] NOT REPORTED [place] Platelets (Bld) [#/Vol] 250 10*3/uL [place] RBC (Bld) [#/Vol] 4.48 10*6/uL 4 - 5.2 m/uL [place] RBC morphology finding Nom (Bld) NOT REPORTED [place] Segmented neutrophils/100 WBC (Bld) 78 % High 47 - 75 % [place] Segs Absolute 9.30 High [place] WBC (Bld) [#/Vol] NOT REPORTED per 100 WBC [place] WBC (Bld) [#/Vol] 12.0 10*3/uL [place] WBC Morphology NOT REPORTED [place] Comprehensive Metabolic Pane l w/ Reflex to MGon 11-16-2019 Albumin [Mass/Vol] 4.4 g/dL 3.5 - 5.2 g/dL [place] Albumin/Globulin [Mass ratio] NOT REPORTED [place] ALP [Catalytic activity/Vol] 82 U/L 35 - 104 U/L [place] ALT [Catalytic activity/Vol] 7 U/L 5 - 33 U/L [place] Anion gap [Moles/Vol] 11 mmol/L 9 - 17 mmol/L [place] AST [Catalytic activity/Vol] 12 U/L <32 [place] Bilirubin Ql (U) 0.53 mg/dL 0.3 - 1.2 mg/dL [place] Bun/Cre Ratio 12 [place] Calcium [Mass/Vol] 10.2 mg/dL 8.6 - 10. 4 mg/dL [place] Chloride [Moles/Vol] 100 mmol/L 98 - 10 7 mmol/L [place] CO2 [Moles/Vol] 25 mmol/L 20 - 31 mmol/L [place] Creatinine [Mass/Vol] 0.83 mg/dL 0.5 - 0.9 mg/dL [place] GFR >60 >60 mL/min [place] GFR Non- >60 >60 mL/min [place] GFR/1.73 sq M predicted among non-blacks MDRD (S/P/Bld) [Vol rate/Area] [place] Comment on above: Average GFR for 20-2 9 years old: 116 mL/min/1.73sq m Chronic Kidney Disease: <60 mL/min/1.73sq m Kidney failure: <15 mL/min/1.73sq m eGFR calculated using average adult body mass. Additional eGFR calculator available at: http://www.[employer].com/multiple_crcl_2012.htm GFR/1.73 sq M predicted among non-blacks MDRD (S/P/Bld) [Vol rate/Area] NOT REPORTED [place] Glucose [Mass/Vol] 106 mg/dL High 70 - 99 mg/dL [place] Interpretation and review of laboratory results Abnormal [place] Potassium [Moles/Vol] 4.0 mmol/L 3.7 - 5.3 mmol/L [place] Protein [Mass/Vol] 8.5 g/dL High 6.4 - 8.3 g/dL [place] Sodium [Moles/Vol] 136 mmol/L 135 - 144 mmol/L [place] Urea nitrogen [Mass/Vol] 10 mg/dL 6 - 20 mg/dL [place] HCG Qualitative, Serumon hCG Qual Negative NEGATIVE [place] Comment on above: Specimens with hCG l evels near the threshold of the test (25 mIU/mL) may give a negative or indeterminate result. In such cases, another test should be performed with a new specimen in 48-72 hours. If early is suspected clinically in this setting, correlation with quantitative serum b-hCG level is suggested. [facility] use [facility] for this test. This has not been cleared or approved by the U.S. Food and Drug Administration. The FDA has determined that such clearance is not necessary. Lactic Acidon 11-16-2019 Lactate [Moles/Vol] 0.6 mmol/L 0.5 - 2. 2 mmol/L [place] Lipaseon 11-16-2019 Lipase [Catalytic activity/Vol] 13 U/L 13 - 60 U/L [place] Otheron 11-16-2019 Immature granulocytes (Bld) [#/Vol] NOT REPORTED 0 % [place] US NON OB TRANSVAGINALon 1. Minor free fluid in the cul-de-sac is seen favoring the right side. 2. Unremarkable appearing uterus and endometrium. 3. Both ovaries show multiple simple appearing follicles with the largest measuring in the area of 1 cm each. There is no other ovarian or pelvic pathology appreciated. [place] Abiodun, Mhpn Incoming Radiant Results From [facility] - 11/16/2019 12:43 PM EDT EXAM: US NON OB TRANSVAGINAL REASON FOR EXAM: Right pelvic pain, (+) chlamydia non-treated, passing clots from end menstrual, serum hCG (-). COMPARISON: None. TECHNIQUE: Transvaginal sonography with Doppler. FINDINGS: There is some minor cul-de-sac fluid. The uterus measures 7.7 x 3.3 x 4.6 cm. It appears normal. Endometrial stripe was 3 mm. No evidence of is seen. The right ovary is 4.2 x 2.4 x 3.5 cm. Multiple follicles are seen with the largest measuring 1.1 cm__. No evidence of torsion is seen. The left ovary is 3.8 x 2.3 x 2 cm. Again multiple follicles are seen with the largest measuring 0.9 cm. No torsion is seen. IMPRESSION: 1. Minor free fluid in the cul-de-sac is seen favoring the right side. 2. Unremarkable appearing uterus and endometrium. 3. Both ovaries show multiple simple appearing follicles with the largest measuring in the area of 1 cm each. There is no other ovarian or pelvic pathology appreciated. [place] EXAM: US NON OB TRANSVAGINAL REASON FOR EXAM: Right pelvic pain, (+) chlamydia non-treated, passing clots from end menstrual, serum hCG (-). COMPARISON: None. TECHNIQUE: Transvaginal sonography with Doppler. FINDINGS: There is some minor cul-de-sac fluid. The uterus measures 7.7 x 3.3 x 4.6 cm. It appears normal. Endometrial stripe was 3 mm. No evidence of is seen. The right ovary is 4.2 x 2.4 x 3.5 cm. Multiple follicles are seen with the largest measuring 1.1 cm__. No evidence of torsion is seen. The left ovary is 3.8 x 2.3 x 2 cm. Again multiple follicles are seen with the largest measuring 0.9 cm. No torsion is seen. [place] Basic Metabolic Panelon 04-2 Anion gap [Moles/Vol] 10 mmol/L 9 - 17 mmol/L [place] Bun/Cre Ratio 14 [place] Calcium [Mass/Vol] 9.1 mg/dL 8.6 - 10. 4 mg/dL [place] Chloride [Moles/Vol] 105 mmol/L 98 - 10 7 mmol/L [place] CO2 [Moles/Vol] 24 mmol/L 20 - 31 mmol/L [place] Creatinine [Mass/Vol] 0.87 mg/dL 0.5 - 0.9 mg/dL [place] GFR >60 >60 mL/min [place] GFR Non- >60 >60 mL/min [place] Glucose [Mass/Vol] 91 mg/dL 70 - 99 mg/dL [place] Potassium [Moles/Vol] 4.4 mmol/L 3.7 - 5.3 mmol/L [place] Sodium [Moles/Vol] 139 mmol/L 135 - 144 mmol/L [place] Urea nitrogen [Mass/Vol] 12 mg/dL 6 - 20 mg/dL [place] CBCon 11-08-2019 Erythrocyte distribution width (RBC) [Ratio] 13.0 % 11.8 - 14.4 % [place] Hematocrit (Bld) [Volume fraction] 43.9 % 36.3 - 47.1 % [place] Hemoglobin (Bld) [Mass/Vol] 14.4 g/dL 11.9 - 15.1 g/dL [place] MCH (RBC) [Entitic mass] 30.9 pg 25.2 - 33.5 pg [place] MCHC (RBC) [Mass/Vol] 32.8 g/dL 28.4 - 34.8 g/dL [place] MCV (RBC) [Entitic vol] 94.2 fL 82.6 - 102.9 fL [place] Platelet mean volume (Bld) [Entitic vol] 11.8 fL 8.1 - 13.5 fL [place] Platelets (Bld) [#/Vol] 205 10*3/uL [place] RBC (Bld) [#/Vol] 4.66 10*6/uL 3.95 - 5.1 1 m/uL [place] WBC (Bld) [#/Vol] 0.0 10*3/uL 0.0 per 10 0 WBC [place] WBC (Bld) [#/Vol] 10.0 10*3/uL [place] HCG Qualitative, Serumon hCG Qual Negative NEGATIVE [place] Comment on above: Specimens with hCG l evels near the threshold of the test (25 mIU/mL) may give a negative or indeterminate result. In such cases, another test should be performed with a new specimen in 48-72 hours. If early is suspected clinically in this setting, correlation with quantitative serum b-hCG level is suggested. [facility] has confirmed the use of plasma for this test. This has not been cleared or approved by the U.S. Food and Drug Administration. The FDA has determined that such clearance is not necessary. HIV Screenon 11-08-2019 HIV Ag/Ab NONREACTIVE NONREACTIVE [place] Comment on above: No laboratory eviden ce of HIV infection. If acute HIV infection is suspected, consider testing for HIV-1 RNA. Hepatitis Panel, Acuteon HAV IgM IA Qn (S) NONREACTIVE NONREACTIVE [place] Hep B Core Ab, IgM NONREACTIVE NONREACTIVE [place] Hepatitis B Surface Ag NONREACTIVE NONREACTIVE [place] Hepatitis C Ab NONREACTIVE NONREACTIVE [place] Comment on above: The hepatitis C procedure used in our laboratory is a Chemiluminescent test specific for three recombinant HCV antigens. A negative anti-HCV result indicates that the antibodies to hepatitis C virus are not present at this time. Individuals with reactive anti-HCV should be considered infected and infectious until proven otherwise. Confirmation of all equivocal or reactive results is recommended by ordering HCV RNA by PCR. Metabolic Panelon 11-08-2019 GFR/1.73 sq M predicted among non-blacks MDRD (S/P/Bld) [Vol rate/Area] [place] Comment on above: Stage 1: Some kidney damage normal GFR Stage 2: Mild kidney damage GFR 60-89 Stage 3: Moderate kidney damage GFR 30-59 Stage 4: Severe kidney damage GFR 15-29 Stage 5: Severe kidney damage GFR <15 ESRD - chronic treatment by dialysis or transplant Average GFR for 20-2 9 years old: 116 mL/min/1.73sq m Chronic Kidney Disease: <60 mL/min/1.73sq m Kidney failure: <15 mL/min/1.73sq m eGFR calculated using average adult body mass. Additional eGFR calculator available at: http://www.[employer].com/multiple_crcl_2012.htm Microscopic Urinalysison Amorphous, UA NOT REPORTED None [employer] Work Phone: Bacteria, UA NOT REPORTED None [employer] Work Phone: Casts UA NOT REPORTED /LPF [employer] Work Phone: Crystals UA NOT REPORTED None /HPF [employer] Work Phone: Epithelial Cells UA NOT REPORTED /HPF [facility] Work Phone: Mucus, UA NOT REPORTED None [employer] Work Phone: Other Observations UA NOT REPORTED NOT REQ. [facility] [employer] Work Phone: RBC (U) [#/Vol] NOT REPORTED [employer] Work Phone: Renal Epithelial, Urine NOT REPORTED 0 /HPF [employer] Work Phone: Trichomonas, UA NOT REPORTED None [employer] Work Phone: WBC, UA 2 TO 5 0 /HPF [employer] Work Phone: Yeast, UA NOT REPORTED None [employer] Work Phone: - [employer] Work Phone: , Urineon 0 Beta HCG ( test) Ql (U) Negative NEGATIVE [employer] Work Phone: Urinalysison 08-24-2019 Bilirubin Urine Negative NEGATIVE [employer] Phone: Color, UA YELLOW YELLOW [employer] Work Phone: Glucose, Ur Negative NEGATIVE [employer] Phone: Interpretation and review of laboratory results Abnormal [employer] Phone: Ketones Ql (U) Negative NEGATIVE [employer] Work Phone: Leukocyte esterase Test strip Ql (U) 1+ Abnormal NEGATIVE [employer] Phone: Nitrite, Urine Negative NEGATIVE [employer] Phone: pH, UA 7.0 [employer] Phone: Protein (U) [Mass/Vol] Negative NEGATIVE [employer] [employer] Phone: Specific Josephine, UA [phone] [employer] Phone: Turbidity UA CLEAR CLEAR [employer] Phone: Urinalysis Comments [employer] Phone: Urine Hgb Negative NEGATIVE [employer] Phone: Urobilinogen, Urine Normal Normal [employer] Phone: CT Head WO Contraston 2018 No acute intracrania l abnormality. [facility] InnovationsST. [facility] EXAMINATION: CT OF T HE HEAD WITHOUT CONTRAST 05/18/2019 9:30 pm TECHNIQUE: CT of the head was performed without the administration of intravenous contrast. Dose modulation, iterative reconstruction, and/or weight based adjustment of the mA/kV was utilized to reduce the radiation dose to as low as reasonably achievable. COMPARISON: None. HISTORY: ORDERING SYSTEM PROVIDED HISTORY: fall from 5 feet above ground level on the right temporal area. r/O intracranial hemorrhage. TECHNOLOGIST PROVIDED HISTORY: fall from 5 feet above ground level on the right temporal area. r/O intracranial hemorrhage. Is the patient ?->No FINDINGS: BRAIN/VENTRICLES: There is no acute intracranial hemorrhage, mass effect or midline shift. No abnormal extra-axial fluid collection. The tesfaye-white differentiation is maintained without evidence of an acute infarct. There is no evidence of hydrocephalus. ORBITS: The visualized portion of the orbits demonstrate no acute abnormality. SINUSES: The visualized paranasal sinuses and mastoid air cells demonstrate no acute abnormality. SOFT TISSUES/SKULL: No acute abnormality of the visualized skull or soft tissues. [facility]ITAL[facility] Abiodun, pn Incoming Radiant Results From [facility] - 05/18/2019 9:40 PM EDT EXAMINATION: CT OF THE HEAD WITHOUT CONTRAST 05/18/2019 9:30 pm TECHNIQUE: CT of the head was performed without the administration of intravenous contrast. Dose modulation, iterative reconstruction, and/or weight based adjustment of the mA/kV was utilized to reduce the radiation dose to as low as reasonably achievable. COMPARISON: None. HISTORY: ORDERING SYSTEM PROVIDED HISTORY: fall from 5 feet above ground level on the right temporal area. r/O intracranial hemorrhage. TECHNOLOGIST PROVIDED HISTORY: fall from 5 feet above ground level on the right temporal area. r/O intracranial hemorrhage. Is the patient ?->No FINDINGS: BRAIN/VENTRICLES: There is no acute intracranial hemorrhage, mass effect or midline shift. No abnormal extra-axial fluid collection. The tesfaye-white differentiation is maintained without evidence of an acute infarct. There is no evidence of hydrocephalus. ORBITS: The visualized portion of the orbits demonstrate no acute abnormality. SINUSES: The visualized paranasal sinuses and mastoid air cells demonstrate no acute abnormality. SOFT TISSUES/SKULL: No acute abnormality of the visualized skull or soft tissues. IMPRESSION: No acute intracranial abnormality. [place], [place] HCG,Urineon 10-17-2018 HCG.beta subunit ( test) Ql (U) Negative Normal Negative [facility] Comment on above: Result Comment: PERF ORMED BY: [place] [address] PATHOLOGIST MANAGER PEOPLE RAQUEL WATSON M.D. Performed By: #### U HCG #### [address] [place] 10-17-2018 L ----- Specimen: [id number] Received: 10/17/18 Status: REINALDO Agustin Num: [id number] Spec Type: Surgical Subm Dr: Harshal Car Jr, DO Tissues: A Esophagus Biopsy (DISTAL ESOPHAGUS) Procedures: HE Stain/2, Gross/Micro L4 Patient Age/Sex Location Account Attending Physician Christine Salcido [id number] Harshal Car Jr, DO SPEC NUM: [id number] RECD: 10/17/18 STATUS: REINALDO AGUSTIN NUM: [id number] [place]: 10/17/18- SUBM DR: Harshal Car Jr, DO ENTERED: 10/17/[address] [facility] [address]: ARGENIS TYPE: Surgical DEPT: S ORDERED: HE Stain/2, Gross/Micro L4 ORDERED: HE Stain/2, Gross/Micro L4 Pathological Diagnosis Esophagus, distal, endoscopic biopsy: Chronic inactive reflux-associated gastroesophagitis. No intestinal metaplasia seen. No dysplasia seen. Specimen Clinical Information Epigastric pain; GERD; rule out mild esophagitis; EGD Gross Received in formalin, labeled with the patient's name, number and distal esophagus, rule out mild esophagitis is a single fragment of segovia-pink soft tissue measuring 0.3 x 0.2 x 0.2 cm. The specimen is submitted entirely in one cassette. (JOE/hair) Microscopic Two H E and one Alcian blue/PAS reviewed, with adequate controls. The mucin cells in the esophageal biopsy are alcian blue-negative and PAS-positive. Microscopic examination confirms the diagnosis. [id number], [id number] A. Esophagus Bx - DISTAL ESOPHAGUS Specimen: [id number] Received: 10/17/18 Status: REINALDO Finn Num: [id number] Spec Type: Surgical Subm Dr: Harshal Car Jr, DO Tissues: A Esophagus Biopsy (DISTAL ESOPHAGUS) Procedures: HE Stain/2, Gross/Micro L4 Patient: Christine Salcido [id number] (Continued) Signed (signature on file) Angie Barr MD 10/18/18 1520 [facility] CBC AUTO DIFFon 08-07-2018 Basophils #/vol (Bld) 0.1 103/ul Normal 0.0-0.1 [facility] Comment on above: Performed By: #### C BC #### [facility] [address] [place] [address] Lm Minnie Basophils/100 WBC (Bld) 0.9 % Normal 0.2-2.0 [facility] Comment on above: Performed By: #### C BC #### [facility] [address] [place] [address] Lm Minnie Eosinophils #/vol (Bld) 0.1 103/ul Normal 0.0-0.7 [facility] Comment on above: Performed By: #### C BC #### [facility] [address] [place] [address] Lm Minnie Eosinophils/100 WBC (Bld) 1.0 % Normal 0.9-7.0 [facility] Comment on above: Performed By: #### C BC #### [facility] [address] [place] [address] Lmgerard Hartman Erythrocyte distribution width Ratio (RBC) 11.9 % Normal 11.0-15.0 [facility] Comment on above: Performed By: #### C BC #### [facility] [address] [place] [address] Lmgerard Hartman Hematocrit Volume Fraction (Bld) 44.4 % Normal 36.0-48.0 [facility] Comment on above: Performed By: #### C BC #### [facility] [address] [place], [place] [id number] Ml Minnie Hemoglobin mass conc (Bld) 15.5 g/dL Normal 12.0-16.0 [facility] Comment on above: Performed By: #### C BC #### [facility] [address] [place] [address] Lm Minnie IG # 0.05 10e3/ul Critically high 0.00-0.03 [facility] Comment on above: Performed By: #### C BC #### [facility] [address] [place], [place] [id number] Lm Hartman IG % 0.6 % Critically high 0.0-0.5 [facility] Comment on above: Performed By: #### C BC #### [facility] [address] [place] [address] Lm Hartman Lymphocytes #/vol (Bld) 2.6 103/ul Normal 1.2-3.8 [facility] Comment on above: Performed By: #### C BC #### [facility] [address] [place] [address] Lm Hartman Lymphocytes/100 WBC (Bld) 28.9 % Normal 20.5-60.0 [facility] Comment on above: Performed By: #### C BC #### [facility] [address] [place] [address] Lm Hartman MANUAL DIFF REQ NO Normal [facility] Comment on above: Performed By: #### C BC #### [facility] [address] [place] [address] Lm Hartman MCH Entitic mass (RBC) 31.9 pg Normal 26.7-34.0 [facility] Comment on above: Performed By: #### C BC #### [facility] [address] [place] [address] Lm Hartman MCHC mass conc (RBC) 34.9 g/dL Normal 29.9-35.2 [facility] Comment on above: Performed By: #### C BC #### [facility] [address] [place] [address] Lm Hartman MCV Entitic volume (RBC) 91.4 fL Normal 81.0-99.0 [facility] Comment on above: Performed By: #### C BC #### [facility] [address] [place] [address] Lm Hartman Monocytes #/vol (Bld) 0.4 103/ul Normal 0.3-0.8 [facility] Comment on above: Performed By: #### C BC #### [facility] [address] [place], [place] [address] Lmgerard Hartman Monocytes/100 WBC (Bld) 3.9 % Normal 1.7-12.0 [facility] Comment on above: Performed By: #### C BC #### [facility] [address] [place], [place] [address] Lm Minnie Neutrophils #/vol (Bld) 5.9 103/ul Normal 1.4-6.5 [facility] Comment on above: Performed By: #### C BC #### [facility] [address] [place], [place] [address] Lm Minnie Neutrophils/100 WBC (Bld) 64.7 % Normal 43.0-75.0 [facility] Comment on above: Performed By: #### C BC #### [facility] [address] [place], [place] [id number] Lmgerard Hartman Platelet mean volume Entitic volume (Bld) 11.3 fL Normal 9.5-13.5 [facility] Comment on above: Performed By: #### C BC #### [facility] [address] [place] [address] Lm Ballen Platelets #/vol (Bld) 240 103/ul Normal 150-450 [facility] Comment on above: Performed By: #### C BC #### [facility] [address] [place] [address] Lm Hartman RBC #/vol (Bld) 4.86 106/ul Normal 4.20-5.40 [facility] Comment on above: Performed By: #### C BC #### [facility] [address] [place], [place] [address] Lm Minnie WBC #/vol (Bld) 9.0 103/ul Normal 4.0-11.0 [facility] Comment on above: Performed By: #### C BC #### [facility] [address] [place], [place] [address] Lm Hartman PROF 14(COMP METB)on 019 Albumin mass conc 4.8 g/dL Normal 3.5-5.0 [facility] Comment on above: Performed By: #### C MP, TSH #### [facility] [address] [place] [id number] Lm Minnie Albumin/Globulin mass ratio 1.2 {ratio} Normal [facility] Comment on above: Performed By: #### C MP, TSH #### [facility] [address] [place] [id number] Lm Minnie ALP enzyme act/vol 87 U/L Normal 38-126 [facility] Comment on above: Performed By: #### C MP, TSH #### [facility] [address] [place] [id number] Lm Minnie ALT enzyme act/vol 18 U/L Normal 9-52 [facility] Comment on above: Performed By: #### C MP, TSH #### [facility] [address] [place] [address] Lm Minnie Anion gap molar conc 13.2 mmol/L Normal [facility] Comment on above: Performed By: #### C MP, TSH #### [facility] [address] [place] [address] Lm Minnie AST enzyme act/vol 13 U/L Critically low 14-36 [facility] Comment on above: Performed By: #### C MP, TSH #### [facility] [address] [place] [address] Lm Minnie Bilirubin Ql (U) 0.4 mg/dL Normal 0.2-1.3 [facility] Comment on above: Performed By: #### C MP, TSH #### [facility] [address] [place] [place] [address] Lm Minnie Calcium mass conc 9.7 mg/dL Normal 8.4-10.2 [facility] Comment on above: Performed By: #### C MP, TSH #### [facility] [address] [place] [place] [address] Lm Minnie Chloride molar conc 102 mmol/L Normal 98-107 [facility] Comment on above: Performed By: #### C MP, TSH #### [facility] [address] [address] Lm Minnie CO2 molar conc 30.1 mmol/L Critically high 22.0-30.0 [facility] Comment on above: Performed By: #### C MP, TSH #### [facility] [address] [address] Lm Minnie Creatinine mass conc 0.92 mg/dL Normal 0.52-1.04 [facility] Comment on above: Performed By: #### C MP, TSH #### [facility] [address] [address] Lm Minnie EGFR-AF EQUATORIAL GUINEAN >60 Normal >=60 [facility] Comment on above: Performed By: #### C MP, TSH #### [facility] [address] [place] [address] Lm Minnie EGFR-NON AF EQUATORIAL GUINEAN >60 Normal >=60 [facility] Comment on above: Performed By: #### C MP, TSH #### [facility] [address] [address] Lm Minnie Globulin mass conc (S) 3.9 g/dL Normal [facility] Comment on above: Performed By: #### C MP, TSH #### [facility] [address] [place] [address] Lm Minnie Glucose mass conc 141 mg/dL Critically high 74-106 [facility] Comment on above: Performed By: #### C MP, TSH #### [facility] [address] [address] Lm Minnie Potassium molar conc 4.3 mmol/L Normal 3.4-5.0 [facility] Comment on above: Performed By: #### C MP, TSH #### [facility] [address] [place] [address] Lm Minnie Protein mass conc 8.7 g/dL Critically high 6.1-8.2 [facility] Comment on above: Performed By: #### C MP, TSH #### [facility] [address] [place] [address] Lm Mninie Sodium molar conc 141 mmol/L Normal 137-145 [facility] Comment on above: Performed By: #### C MP, TSH #### [facility] [address] [place] [id number] Lm Hartman Urea nitrogen mass conc 17.0 mg/dL Normal 7.0-17.0 [facility] Comment on above: Performed By: #### C MP, TSH #### [facility] [address] [address] Lm Hartman Urea nitrogen/Creatinine mass ratio 18.5 mg/mg Normal [facility] Comment on above: Performed By: #### C MP, TSH #### [facility] [address] [place], [place] [phone] Lm Hartman TSHon 08-07-2018 Thyrotropin Qn 1.384 uIU/mL Normal 0.470-4.680 [facility] Comment on above: Performed By: #### C MP, TSH #### [facility] [address] [place] [address] Lm Hartman Thyrotropin Qn SEE BELOW Normal [facility] Comment on above: Result Comment: <0.3 4 UIU/ml HYPERTHYROID 0.34-5.60 UIU/ml EUTHYROID >5.60 UIU/ml HYPOTHYROID Performed By: #### C MP, TSH #### [facility] [address] [place], [place] [phone] Lm Hartman Vital Signs Date Time Vital Sign Value Performing Clinician Facility 09-26-2023 14:32-0400 Body temperature 97.81 [degF] [facility] [address] [place] [address] 09-26-2023 14:32-0400 Diastolic blood pressure 67 mm[Hg] [facility] [address] [place] [address] 09-26-2023 14:32-0400 Heart rate 84 /min [facility] [address] [place] [address] 09-26-2023 14:32-0400 Respiratory rate 16 /min [facility] [address] [place] [address] 09-26-2023 14:32-0400 SaO2% (BldA) [Mass fraction] 97 % [facility] [address] [place] [address] 09-26-2023 14:32-0400 Systolic blood pressure 103 mm[Hg] [facility] 05-11-2022 08:36-0400 Body height 157.5 cm Radha Loerassler SUPERVISOR [employer] Work Phone: [facility] 05-11-2022 08:36-0400 Body mass index (BMI) [Ratio] 20.67 kg/m2 Radha Loerassratna QUICK-CAR SEAT COVERER Work Phone: [facility] 05-11-2022 08:36-0400 Body temperature 98.29 [degF] Radha Loerassratna QU[employer] SE[employer] COVERER Work Phone: [facility] 05-11-2022 08:36-0400 Body weight 51.26 kg Radha Loerassratna QUICK-[employer] SE[employer] C[employer]ER Work Phone: [facility] 05-11-2022 08:36-0400 Diastolic blood pressure 70 mm[Hg] Radha Loerassratna QUICK-[employer] SEAT COVERER Work Phone: [facility] 05-11-2022 08:36-0400 Heart rate 86 /min Radha Loerassler SUPERVISOR [employer] Work Phone: [facility] 05-11-2022 08:36-0400 Respiratory rate 18 /min Radha Kennedy EUCEDAN-CAR SEAT COVERER Work Phone: [facility] 05-11-2022 08:36-0400 SaO2% (BldA) [Mass fraction] 98 % Radha Loerassratna QUICK-[employer] SE[employer] COVERER Work Phone: [facility] 05-11-2022 08:36-0400 Systolic blood pressure 102 mm[Hg] Radha Benavides APRN-CAR SEAT COVERER Work Phone: [facility] 03-11-2022 09:56-0400 Body height 157.5 cm Radha Benavides APRN-CAR SEAT COVERER Work Phone: [facility] 03-11-2022 09:56-0400 Body mass index (BMI) [Ratio] 22.24 kg/m2 Radha Benavides APRN-CAR SEAT COVERER Work Phone: [facility] 03-11-2022 09:56-0400 Body weight 55.16 kg Radha Loerassler SUPERVISOR [employer] Work Phone: [employer] [facility] 03-11-2022 09:56-0400 Diastolic blood pressure 78 mm[Hg] Radha Benavides SUPERVISOR [employer] Work Phone: [facility] 03-11-2022 09:56-0400 Heart rate 92 /min Radha Benavides SUPERVISOR [employer] Work Phone: [employer] [facility] 03-11-2022 09:56-0400 SaO2% (BldA) [Mass fraction] 97 % Radha Loerassler SUPERVISOR [employer] Work Phone: [employer] [facility] 03-11-2022 09:56-0400 Systolic blood pressure 122 mm[Hg] Radha Benavides SUPERVISOR [employer] Work Phone: [employer] [facility] 02-08-2022 08:55-0400 Body height 157.5 cm Radha Loerassler SUPERVISOR [employer] Work Phone: [employer] [facility] 02-08-2022 08:55-0400 Body mass index (BMI) [Ratio] 21.4 kg/m2 Radha Loerassler SUPERVISOR [employer] Work Phone: [employer] [facility] 02-08-2022 08:55-0400 Body weight 53.07 kg Radha Benavides SUPERVISOR [employer] Work Phone: [employer] [facility] 02-08-2022 08:55-0400 Diastolic blood pressure 60 mm[Hg] Radha Benavides SUPERVISOR [employer] Work Phone: [employer] [facility] 02-08-2022 08:55-0400 Heart rate 84 /min Radha Benavides APRN-CAR SEAT COVERER Work Phone: [employer] [facility] 02-08-2022 08:55-0400 SaO2% (BldA) [Mass fraction] 98 % Radha Benavides SUPERVISOR [employer] Work Phone: [facility] 02-08-2022 08:55-0400 Systolic blood pressure 104 mm[Hg] Radha Loerassratna EUC[employer]AN[employer]ER Work Phone: [facility] 01-06-2022 08:45-0400 Body height 157.5 cm Radha Loerassratna QUICK-[employer] SE[employer] COVERER Work Phone: [facility] 01-06-2022 08:45-0400 Body mass index (BMI) [Ratio] 21.4 kg/m2 Radha Loerassler SUPERVISOR [employer] Work Phone: [facility] 01-06-2022 08:45-0400 Body weight 53.07 kg Radha Loerassratna [employer] Work Phone: [facility] 01-06-2022 08:45-0400 Diastolic blood pressure 72 mm[Hg] Radha Loerassler SUPERVISOR [employer] Work Phone: [facility] 01-06-2022 08:45-0400 Heart rate 68 /min Radha Kennedy EUC[employer] Work Phone: [facility] 01-06-2022 08:45-0400 SaO2% (BldA) [Mass fraction] 99 % Radha Benavides SUPERVISOR [employer] Work Phone: [facility] 01-06-2022 08:45-0400 Systolic blood pressure 116 mm[Hg] Radha Benavides APRN-CAR SEAT COVERER Work Phone: [facility] 12-08-2021 12:58-0400 Body height 157.5 cm Radha Loerassler SUPERVISOR [employer] Work Phone: [facility] 12-08-2021 12:58-0400 Body mass index (BMI) [Ratio] 21.14 kg/m2 Radha Benavides APRN-CAR SEAT COVERER Work Phone: [facility] 12-08-2021 12:58-0400 Body temperature 98.2 [degF] Radha Benavides APRN-CAR SEAT COVERER Work Phone: [facility] 12-08-2021 12:58-0400 Body weight 52.44 kg Radha Kennedy [employer]ER Work Phone: [employer] [facility] 12-08-2021 12:58-0400 Diastolic blood pressure 82 mm[Hg] Radha Kennedy SUPERVISOR [employer] Work Phone: [facility] 12-08-2021 12:58-0400 Heart rate 66 /min Radha Kennedy [employer] Work Phone: [facility] 12-08-2021 12:58-0400 SaO2% (BldA) [Mass fraction] 99 % Radha Kennedy [employer] Work Phone: [facility] 12-08-2021 12:58-0400 Systolic blood pressure 128 mm[Hg] Radha Benavides SUPERVISOR [employer] Work Phone: [facility] 11-10-2021 13:22-0400 Body height 157.5 cm Radha Kennedy [employer] Work Phone: [facility] 11-10-2021 13:22-0400 Body mass index (BMI) [Ratio] 20.85 kg/m2 Radha Kennedy EU[employer]ER Work Phone: [facility] 11-10-2021 13:22-0400 Body weight 51.71 kg Radha Benavides SUPERVISOR [employer] Work Phone: [facility] [employer] [facility] 11-10-2021 13:22-0400 Diastolic blood pressure 74 mm[Hg] Radha Loerassler SUPERVISOR [employer] Work Phone: [employer] [facility] 11-10-2021 13:22-0400 Heart rate 107 /min Radha Loerassler SUPERVISOR [employer] Work Phone: [facility] 11-10-2021 13:22-0400 SaO2% (BldA) [Mass fraction] 99 % Radha Benavides SUPERVISOR [employer] Work Phone: [facility] 11-10-2021 13:22-0400 Systolic blood pressure 118 mm[Hg] Radha Benavides SUPERVISOR [employer] Work Phone: [facility] 10-15-2021 21:17-0400 Diastolic blood pressure 68 mm[Hg] Karlee Pool SUPERVISOR [employer] Work Phone: [employer] 10-15-2021 21:17-0400 Heart rate 81 /min Karlee Pool SUPERVISOR [employer] Work Phone: [employer] 10-15-2021 21:17-0400 Systolic blood pressure 112 mm[Hg] Karlee Pool SUPERVISOR [employer] Work Phone: [employer] 10-15-2021 20:30-0400 Body temperature 98.01 [degF] Karlee Pool SUPERVISOR [employer] Work Phone: [employer] 10-15-2021 20:30-0400 Respiratory rate 16 /min Karlee Pool SUPERVISOR [employer] Work Phone: [employer] 10-05-2021 14:50-0400 Body temperature 98.29 [degF] Karlee Pool SUPERVISOR [employer] Work Phone: [employer] 10-05-2021 14:50-0400 Diastolic blood pressure 72 mm[Hg] Karlee Pool SUPERVISOR VINE [employer] Work Phone: [employer] 10-05-2021 14:50-0400 Heart rate 90 /min Karlee Pool [employer] Work Phone: [employer] 10-05-2021 14:50-0400 Respiratory rate 16 /min Karlee Pool [employer] Work Phone: [employer] 10-05-2021 14:50-0400 Systolic blood pressure 123 mm[Hg] Karlee Pool [employer] Work Phone: [employer] 09-14-2021 13:12-0500 Body height 157.5 cm Radha Benavides [employer] Work Phone: [facility] 09-14-2021 13:12-0500 Body mass index (BMI) [Ratio] 22.86 kg/m2 Radha Benavides APRN-CAR SEAT COVERER [facility] 09-14-2021 13:12-0500 Body temperature 96.91 [degF] Radha Kennedy [employer] Work Phone: [facility] 09-14-2021 13:12-0500 Body weight 56.7 kg Radha Kennedy [employer] Work Phone: [facility] 09-14-2021 13:12-0500 Diastolic blood pressure 70 mm[Hg] Radha Kennedy [employer] Work Phone: [facility] 09-14-2021 13:12-0500 Heart rate 97 /min Radha Benavides APRN-CAR SE[employer] C[employer] Work Phone: [facility] 09-14-2021 13:12-0500 SaO2% (BldA) [Mass fraction] 97 % Radha Benavides APRN-CAR SEAT C[employer] Work Phone: [facility] 09-14-2021 13:12-0500 Systolic blood pressure 118 mm[Hg] Radha Kennedy [employer] Work Phone: [facility] 06-16-2021 14:44-0500 Body height 157.5 cm Radha Benavides APRN-CAR SEAT C[employer]ER Work Phone: [facility] 06-16-2021 14:44-0500 Body mass index (BMI) [Ratio] 21.36 kg/m2 Radha Kennedy [employer] Work Phone: [facility] 06-16-2021 14:44-0500 Body temperature 97.5 [degF] Radha Loerassler [employer] Work Phone: [facility] 06-16-2021 14:44-0500 Body weight 52.98 kg Radha Benavides [employer] Work Phone: [facility] 06-16-2021 14:44-0500 Diastolic blood pressure 62 mm[Hg] Radha Benavides [employer] Work Phone: [employer] [facility] 06-16-2021 14:44-0500 Heart rate 89 /min Radha Benavides APRN-CAR SEAT C[employer]ER Work Phone: [employer] [facility] 06-16-2021 14:44-0500 SaO2% (BldA) [Mass fraction] 99 % Radha Benavides [employer] Work Phone: [employer] [facility] 06-16-2021 14:44-0500 Systolic blood pressure 102 mm[Hg] Radha Benavides [employer] Work Phone: [employer] [facility] 06-12-2021 20:27-0500 Body mass index (BMI) [Ratio] 21.03 kg/m2 Juan Richards MD Work Phone: [employer] 06-12-2021 20:27-0500 Body temperature 98.29 [degF] Juan Richards MD Work Phone: [employer] 06-12-2021 20:27-0500 Body weight 52.16 kg Juan Richards MD Work Phone: [employer] 06-12-2021 20:27-0500 Diastolic blood pressure 59 mm[Hg] Juan Richards MD Work Phone: [employer] 06-12-2021 20:27-0500 Heart rate 82 /min Juan Richards MD Work Phone: [employer] 06-12-2021 20:27-0500 Respiratory rate 18 /min Juan Richards MD Work Phone: [employer] 06-12-2021 20:27-0500 SaO2% (BldA) [Mass fraction] 100 % Juan Richards MD Work Phone: [employer] 06-12-2021 20:27-0500 Systolic blood pressure 92 mm[Hg] Juan Richards MD Work Phone: [employer] 05-24-2021 13:58-0500 Body mass index (BMI) [Ratio] 19.81 kg/m2 Sarah Justice MD Work Phone: [employer] 05-24-2021 13:58-0500 Body temperature 98.6 [degF] Sarah Justice MD Work Phone: [employer] 05-24-2021 13:58-0500 Body weight 49.13 kg Sarah Justice MD Work Phone: [employer] 05-24-2021 13:58-0500 Diastolic blood pressure 61 mm[Hg] Sarah Justice MD Work Phone: [employer] 05-24-2021 13:58-0500 Heart rate 92 /min Sarah Justice MD Work Phone: [employer] 05-24-2021 13:58-0500 Respiratory rate 16 /min Sarah Justice MD Work Phone: [employer] 05-24-2021 13:58-0500 SaO2% (BldA) [Mass fraction] 100 % Sarah Justice MD Work Phone: [employer] 05-24-2021 13:58-0500 Systolic blood pressure 111 mm[Hg] Sarah Justice MD Work Phone: [employer] 04-08-2021 03:08-0400 Body mass index (BMI) [Ratio] 19.94 kg/m2 Juan Richards MD Work Phone: [employer] Work Phone: 04-08-2021 03:08-0400 Body temperature 99.19 [degF] Juan Richards MD Work Phone: [employer] Work Phone: 04-08-2021 03:08-0400 Body weight 49.44 kg Juan Richards MD Work Phone: [employer] Work Phone: 04-08-2021 03:08-0400 Diastolic blood pressure 72 mm[Hg] Juan Richards MD Work Phone: [employer] Work Phone: 04-08-2021 03:08-0400 Heart rate 111 /min Juan Richards MD Work Phone: [employer] Work Phone: 04-08-2021 03:08-0400 Respiratory rate 16 /min Juan Richards MD Work Phone: [employer] Work Phone: 04-08-2021 03:08-0400 SaO2% (BldA) [Mass fraction] 96 % Juan Richards MD Work Phone: [employer] Work Phone: 04-08-2021 03:08-0400 Systolic blood pressure 140 mm[Hg] Juan Richards MD Work Phone: [employer] Work Phone: 03-25-2021 18:36-0400 Body height 157.5 cm Martha Lara DO Work Phone: [facility] 03-25-2021 18:36-0400 Body mass index (BMI) [Ratio] 20.85 kg/m2 Martha Lara DO Work Phone: [facility] 03-25-2021 18:36-0400 Body temperature 99.81 [degF] Martha Lara DO Work Phone: [facility] 03-25-2021 18:36-0400 Body weight 51.71 kg Martha Lara DO Work Phone: [facility] 03-25-2021 18:36-0400 Diastolic blood pressure 66 mm[Hg] Martha Lara DO Work Phone: [facility] 03-25-2021 18:36-0400 Heart rate 65 /min Martha Lara DO Work Phone: [facility] 03-25-2021 18:36-0400 Respiratory rate 18 /min Martha Lara DO Work Phone: [facility] 03-25-2021 18:36-0400 SaO2% (BldA) [Mass fraction] 99 % Martha Lara DO Work Phone: [facility] 03-25-2021 18:36-0400 Systolic blood pressure 103 mm[Hg] Martha Lara DO Work Phone: [facility] 03-03-2021 08:12-0400 Body height 157.5 cm Radha Benavides [employer] Work Phone: [employer] [facility] 03-03-2021 08:12-0400 Body mass index (BMI) [Ratio] 21.22 kg/m2 Radha Benavides APRN-[employer] SE[employer] Work Phone: [employer] [facility] 03-03-2021 08:12-0400 Body temperature 98.6 [degF] Radha Benavides APRN-CAR SE[employer] C[employer] Work Phone: [employer] [facility] 03-03-2021 08:12-0400 Body weight 52.62 kg Radha Benavides [employer] Work Phone: [employer] [facility] 03-03-2021 08:12-0400 Diastolic blood pressure 70 mm[Hg] Radha Benavides APRN-[employer] SE[employer] Work Phone: [employer] [facility] 03-03-2021 08:12-0400 Heart rate 96 /min Radha Benavides APRN-[employer] SE[employer] Work Phone: [employer] [facility] 03-03-2021 08:12-0400 SaO2% (BldA) [Mass fraction] 100 % Radha Benavides [employer] Work Phone: [facility] 03-03-2021 08:12-0400 Systolic blood pressure 116 mm[Hg] Radha Benavides APRN-[employer] SE[employer] Work Phone: [employer] [facility] 02-26-2021 09:18-0400 Body height 157.5 cm Radha Benavides APRN-CAR SE[employer] Work Phone: [facility] 02-26-2021 09:18-0400 Body mass index (BMI) [Ratio] 21.44 kg/m2 Radha Benavides [employer] Work Phone: [facility] 02-26-2021 09:18-0400 Body temperature 99 [degF] Radha Kennedy [employer] Work Phone: [facility] [employer] [facility] 02-26-2021 09:18-0400 Body weight 53.16 kg Radha Benavides [employer] Work Phone: [facility] 02-26-2021 09:18-0400 Diastolic blood pressure 70 mm[Hg] Radha Loerassler [employer] Work Phone: [facility] 02-26-2021 09:18-0400 Heart rate 114 /min Radha Benavides [employer] Work Phone: [facility] [employer] [facility] 02-26-2021 09:18-0400 SaO2% (BldA) [Mass fraction] 99 % Radha Benavides [employer] Work Phone: [facility] [employer] [facility] 02-26-2021 09:18-0400 Systolic blood pressure 116 mm[Hg] Radha Benavides [employer] Work Phone: [facility] 01-29-2021 09:11-0400 Body height 157.5 cm Radha Benavides [employer] Work Phone: [facility] 01-29-2021 09:11-0400 Body mass index (BMI) [Ratio] 21.33 kg/m2 Radha Loerassler [employer] Work Phone: [employer] [facility] 01-29-2021 09:11-0400 Body temperature 98.8 [degF] Radha Benavides APRN-[employer] SE[employer] C[employer]ER Work Phone: [facility] 01-29-2021 09:11-0400 Body weight 52.89 kg Radha Loerassler [employer] Work Phone: [facility] 01-29-2021 09:11-0400 Diastolic blood pressure 68 mm[Hg] Radha Loerassler [employer] Work Phone: [employer] [facility] 01-29-2021 09:11-0400 Heart rate 77 /min Radha Loerassler [employer] Work Phone: [facility] 01-29-2021 09:11-0400 SaO2% (BldA) [Mass fraction] 96 % Radha Loerassler [employer] Work Phone: [facility] [facility] 01-29-2021 09:11-0400 Systolic blood pressure 114 mm[Hg] Radha Benavides [employer] Work Phone: [facility] 01-01-2021 09:09-0400 Body height 157.5 cm Radha Benavides APRN-[employer] SE[employer] Work Phone: [facility] 01-01-2021 09:09-0400 Body mass index (BMI) [Ratio] 21.98 kg/m2 Radha Loerassler [employer] Work Phone: [facility] 01-01-2021 09:09-0400 Body temperature 97.7 [degF] Radha Loerassler [employer] Work Phone: [facility] 01-01-2021 09:09-0400 Body weight 54.52 kg Radha Benavides [employer] Work Phone: [facility] 01-01-2021 09:09-0400 Diastolic blood pressure 70 mm[Hg] Radha Benavides [employer] Work Phone: [employer] [facility] 01-01-2021 09:09-0400 Heart rate 81 /min Radha Benavides APRN-[employer] Work Phone: [facility] 01-01-2021 09:09-0400 SaO2% (BldA) [Mass fraction] 100 % Radha Benavides [employer] Work Phone: [facility] 01-01-2021 09:09-0400 Systolic blood pressure 104 mm[Hg] Radha Kennedy [employer] Work Phone: [facility] [employer] [facility] 12-04-2020 11:36-0400 Body height 157.5 cm Radha Kennedy [employer] Work Phone: [facility] 12-04-2020 11:36-0400 Body mass index (BMI) [Ratio] 22.24 kg/m2 Radha Benavides [employer] Work Phone: [facility] 12-04-2020 11:36-0400 Body temperature 98.91 [degF] Radha Benavides SU[employer] Work Phone: [facility] 12-04-2020 11:36-0400 Body weight 55.16 kg Radha Kennedy [employer] Work Phone: [facility] [employer] [facility] 12-04-2020 11:36-0400 Diastolic blood pressure 62 mm[Hg] Radha Loerassler [employer] Work Phone: [facility] 12-04-2020 11:36-0400 Heart rate 109 /min Radha Kennedy [employer] Work Phone: [facility] 12-04-2020 11:36-0400 SaO2% (BldA) [Mass fraction] 98 % Radha Benavides APRN-[employer] Work Phone: [facility] [employer] [facility] 12-04-2020 11:36-0400 Systolic blood pressure 102 mm[Hg] Radha Loerassler [employer] Work Phone: [facility] 11-20-2020 09:03-0400 Body height 157.5 cm Radha Loerassler [employer] Work Phone: [facility] 11-20-2020 09:03-0400 Body mass index (BMI) [Ratio] 22.57 kg/m2 Radha Loerassler [employer] Work Phone: [facility] 11-20-2020 09:03-0400 Body temperature 97.9 [degF] Radha Benavides SU[employer] Work Phone: [employer] [facility] 11-20-2020 09:03-0400 Body weight 55.97 kg Radha Loerassler [employer] Work Phone: [employer] [facility] 11-20-2020 09:03-0400 Diastolic blood pressure 62 mm[Hg] Radha Loerassler SU[employer] [facility] Phone: [facility] 11-20-2020 09:03-0400 Heart rate 80 /min Radha Loerassler [employer] Work Phone: [employer] [facility] 11-20-2020 09:03-0400 SaO2% (BldA) [Mass fraction] 97 % Radha Benavides [employer] Work Phone: [employer] [facility] 11-20-2020 09:03-0400 Systolic blood pressure 102 mm[Hg] Radha Loerassler [employer] Work Phone: [facility] [employer] [facility] 11-06-2020 08:54-0400 Body height 157.5 cm Radha Benavides [employer] Work Phone: [facility] 11-06-2020 08:54-0400 Body mass index (BMI) [Ratio] 22.83 kg/m2 Radha Benavides [employer] Work Phone: [employer] [facility] 11-06-2020 08:54-0400 Body temperature 98.1 [degF] Radha Loerassratna [employer] Work Phone: [employer] [facility] 11-06-2020 08:54-0400 Body weight 56.61 kg Radha Benavides [employer] Work Phone: [employer] [facility] 11-06-2020 08:54-0400 Diastolic blood pressure 62 mm[Hg] Radha Benavides [employer] Work Phone: [employer] [facility] 11-06-2020 08:54-0400 Heart rate 82 /min Rahda Benavides SU[employer] Work Phone: [facility] 11-06-2020 08:54-0400 SaO2% (BldA) [Mass fraction] 99 % Radha Benavides [employer] Work Phone: [facility] 11-06-2020 08:54-0400 Systolic blood pressure 102 mm[Hg] Radha Benavides [employer] Work Phone: [facility] 10-23-2020 11:32-0400 Body temperature [facility] Comment on above: temperature is 90, collection was not wi tnessed 10-23-2020 11:20-0400 BMI (Body Mass Index) 23.23 kg/m2 [facility] 10-23-2020 11:20-0400 Body Temperature 98.6 [degF] [facility] 10-23-2020 11:20-0400 Body weight 57.61 kg [facility] 10-23-2020 11:20-0400 BP Diastolic 68 mm[Hg] [facility] 10-23-2020 11:20-0400 BP Systolic 116 mm[Hg] [facility] 10-23-2020 11:20-0400 Height 157.5 cm [facility] 10-23-2020 11:20-0400 Pulse (Heart Rate) 85 /min [facility] 10-23-2020 11:20-0400 Pulse Oximetry 97 % [facility] 10-09-2020 15:06-0400 Body temperature [facility] Comment on above: temperature is 92, collection was not wi tnessed 10-09-2020 14:06-0400 BMI (Body Mass Index) 23.52 kg/m2 [facility] 10-09-2020 14:06-0400 Body Temperature 97.81 [degF] [facility] 10-09-2020 14:06-0400 Body weight 58.33 kg [facility] 10-09-2020 14:06-0400 BP Diastolic 62 mm[Hg] [facility] 10-09-2020 14:06-0400 BP Systolic 102 mm[Hg] [facility] 10-09-2020 14:06-0400 Height 157.5 cm [facility] 10-09-2020 14:06-0400 Pulse (Heart Rate) 87 /min [facility] 10-09-2020 14:06-0400 Pulse Oximetry 97 % [facility] 10-02-2020 11:05-0400 BMI (Body Mass Index) 23.92 kg/m2 [facility] 10-02-2020 11:05-0400 Body Temperature 97.5 [degF] [facility] 10-02-2020 11:05-0400 Body weight 59.33 kg [facility] 10-02-2020 11:05-0400 BP Diastolic 68 mm[Hg] [facility] 10-02-2020 11:05-0400 BP Systolic 106 mm[Hg] [facility] 10-02-2020 11:05-0400 Height 157.5 cm [facility] 10-02-2020 11:05-0400 Pulse (Heart Rate) 75 /min [facility] 10-02-2020 11:05-0400 Pulse Oximetry 98 % [facility] 09-25-2020 10:32-0500 BMI (Body Mass Index) 23.96 kg/m2 [facility] 09-25-2020 10:32-0500 Body Temperature 98.2 [degF] [facility] 09-25-2020 10:32-0500 Body weight 59.42 kg [facility] 09-25-2020 10:32-0500 BP Diastolic 70 mm[Hg] [facility] 09-25-2020 10:32-0500 BP Systolic 116 mm[Hg] [facility] 09-25-2020 10:32-0500 Height 157.5 cm [facility] 09-25-2020 10:32-0500 Pulse (Heart Rate) 76 /min [facility] 09-25-2020 10:32-0500 Pulse Oximetry 98 % [facility] 09-25-2020 10:32-0500 Respiratory Rate 16 /min [facility] 01-22-2020 13:50-0400 BMI (Body Mass Index) 21.58 kg/m2 [facility] [place] 01-22-2020 13:50-0400 Body Temperature 98.1 [degF] [facility] [place] 01-22-2020 13:50-0400 Body weight 53.52 kg [facility] 01-22-2020 13:50-0400 BP Diastolic 72 mm[Hg] [facility] [place] 01-22-2020 13:50-0400 BP Systolic 128 mm[Hg] [facility] [place] 01-22-2020 13:50-0400 Height 157.5 cm [facility] [place] 01-22-2020 13:50-0400 Pulse (Heart Rate) 100 /min [facility] [place] 01-22-2020 13:50-0400 Pulse Oximetry 94 % [facility] [place] 01-22-2020 13:50-0400 Respiratory Rate 18 /min [facility] [place] 11-16-2019 09:01-0400 BMI (Body Mass Index) 22.13 kg/m2 [facility] [place] 11-16-2019 09:01-0400 Body Temperature 99.39 [degF] [facility] [place] 11-16-2019 09:01-0400 Body weight 54.88 kg [facility] [place] 11-16-2019 09:01-0400 BP Diastolic 57 mm[Hg] [facility] [place] 11-16-2019 09:01-0400 BP Systolic 106 mm[Hg] [facility] [place] 11-16-2019 09:01-0400 Height 157.5 cm Karlo [facility] [place] 11-16-2019 09:01-0400 Pulse (Heart Rate) 107 /min Karlo Campuzano [facility] 11-16-2019 09:01-0400 Pulse [facility]ximetry 97 % [facility] [place] 11-16-2019 09:01-0400 Respiratory Rate 15 /min [facility] [place] 08-24-2019 01:39-0500 BMI (Body Mass Index) 24.33 kg/m2 [employer] Work Phone: 08-24-2019 01:39-0500 Body Temperature 98.4 [degF] [employer] Work Phone: 08-24-2019 01:39-0500 Body weight 60.33 kg [employer] Work Phone: 08-24-2019 01:39-0500 BP Diastolic 83 mm[Hg] [employer] Work Phone: 08-24-2019 01:39-0500 BP Systolic 137 mm[Hg] [employer] Work Phone: 08-24-2019 01:39-0500 Height 157.5 cm [employer] Work Phone: 08-24-2019 01:39-0500 Pulse (Heart Rate) 97 /min [employer] Work Phone: 08-24-2019 01:39-0500 Pulse Oximetry 99 % [employer] Work Phone: 08-24-2019 01:39-0500 Respiratory Rate 18 /min [employer] Work Phone: 05-18-2019 22:03-0400 BP Diastolic 68 mm[Hg] [facility] [place] [facility] [place] 05-18-2019 22:03-0400 BP Systolic 126 mm[Hg] Andrew Marley [facility] [place] 05-18-2019 22:03-0400 Pulse (Heart Rate) 78 /min Andrew [facility]ley [facility], [place] 05-18-2019 22:03-0400 Pulse Oximetry 100 % Andrew Marley [facility] , [place] 05-18-2019 22:03-0400 Respiratory Rate 16 /min [facility] [place] 05-18-2019 20:38-0400 Body Temperature 98.6 [degF] Andrew Donell [facility], [place] Encounters Encounter Date Encounter Type Care Provider Facility Start: 10-28-2023 ambulatory [facility] Start: 10-25-2023 ambulatory [facility] Start: 10-24-2023 ambulatory [facility] Start: 10-14-2023 ambulatory [facility] Start: 09-26-2023 ambulatory [facility] Start: 09-26-2023 End: 09-26-2023 [facility] Comment on above: Opioid dependence in remission (Primary Dx) Start: 09-16-2023 ambulatory [facility] Start: 08-20-2022 End: 08-21-2022 ambulatory [facility] Start: 08-20-2022 End: 08-20-2022 Subsequent hospital visit by physician Janet Becker CNP Work Phone: [facility] Start: 05-11-2022 ambulatory [facility] Start: 05-11-2022 End: 05-11-2022 Office outpatient visit 15 minutes Radha DAVEY Work Phone: [facility] Comment on above: Opioid dependence in remission (Primary Dx); Encounter for long-term opiate analgesic use Start: 04-08-2022 ambulatory [facility] Start: [facility]-11[facility] Start: 03-11-2022 End: 03-11-2022 Office outpatient visit 15 minutes Radha Benavides [employer] Work Phone: [facility] Comment on above: Opioid dependence in remission (Primary Dx); Encounter for long-term opiate analgesic use Start: 02-08-2022 ambulatory [facility] Start: 02-08-2022 End: 02-08-2022 Office outpatient visit 15 minutes Radha Benavides [employer] Work Phone: [facility] Comment on above: Opioid dependence in remission (Primary Dx); Encounter for long-term opiate analgesic use Start: 01-06-2022 [facility] Start: 01-06-2022 End: 01-06-2022 Office outpatient visit 15 minutes Radha Benavides [employer] Work Phone: [facility] Comment on above: Opioid dependence in remission (Primary Dx); Encounter for long-term opiate analgesic use Start: 12-08-[facility]21 [facility] Start: 12-08-2021 End: 12-08-2021 Office outpatient visit 15 minutes Radha Benavides [employer] Work Phone: [facility] Comment on above: Opioid dependence in remission (Primary Dx); Encounter for long-term opiate analgesic use Start: 11-10-2021 [facility] Start: 11-10-2021 End: 11-10-2021 Office outpatient visit 15 minutes Radha Benavides [employer] Work Phone: [facility] Comment on above: Opioid dependence in remission (Primary Dx); Encounter for long-term opiate analgesic use; () Start: 10-26-2021 End: 10-29-2021 Evaluation and management of inpatient [facility] Start: 10-15-2021 End: 10-16-2021 ambulatory [facility] Start: 10-15-2021 End: 10-15-2021 Subsequent hospital visit by physician Karlee Hassan [employer] Work Phone: [facility] Start: 10-13-2021 ambulatory [facility] Start: 10-05-2021 End: 10-06-2021 [facility] Start: 10-05-2021 End: 10-05-2021 Subsequent hospital visit by physician Karlee Hassan SUPERVISOR [employer] CNM Work Phone: [facility] Labor and Delivery Comment on above: 36 weeks gestation o f Start: 09-16-2021 End: 09-16-2021 Subsequent hospital visit by physician Tyrese Diabetes Education Work Phone: [facility] Diabetic Education Start: 09-14-2021 [facility] Start: 09-14-2021 End: 09-14-2021 Office outpatient visit 15 minutes Radha Benavides APRN-[employer] SE[employer] Work Phone: [facility] Comment on above: Opioid dependence in remission (Primary Dx); Encounter for long-term opiate analgesic use; , unspecified gestational age; Anxiety Start: 09-10-2021 End: 09-11-2021 [facility] Start: 08-25-2021 End: 08-26-2021 [facility] Start: 08-17-2021 [facility] RADHA [facility] Start: 07-21-2021 End: 07-22-[address] [facility] Start: 07-17-2021 End: 07-18-[address] [facility] Start: 07-17-2021 Emergency department patient visit [facility] Start: 07-14-2021 [facility] Start: 06-16-2021 End: 06-17-2021 ambulatory AVERY [facility] Start: 06-16-2021 [facility] Start: 06-16-2021 End: 06-16-2021 Office outpatient visit 15 minutes Radha Benavides APRN-[employer] SE[employer] Work Phone: [facility] Comment on above: Opioid dependence in remission (Primary Dx); Encounter for long-term opiate analgesic use; , unspecified gestational age; Anxiety; Bipolar 1 disorder Start: 06-12-2021 End: 06-12-2021 Emergency department patient visit [facility] Start: 06-12-2021 End: 06-12-2021 Emergency department patient visit Juan Richards MD Work Phone: [facility] ED Comment on above: Viral URI (Primary D x); Otalgia, unspecified laterality Start: 05-24-2021 End: 05-24-2021 Emergency department patient visit SARAH [facility] Start: 05-24-2021 End: 05-24-2021 Emergency department patient visit Sarah Justice MD Work Phone: [facility] ED Comment on above: Rectal bleeding (Ana harriett Dx) Start: 05-19-2021 ambulatory RADHA BENAVIDES [facility] Start: 04-14-2021 End: 04-15-2021 ambulatory AVERY [facility] Start: 04-14-2021 End: 04-14-2021 Subsequent hospital visit by physician Janet Ricci SUPER[employer]OR [employer] Work Phone: [facility] Comment on above: with 11 co mpleted weeks gestation Start: 04-08-2021 End: 04-08-2021 Emergency department patient visit [facility] Start: 04-08-2021 End: 04-08-2021 Emergency department patient visit Juan Richards MD Work Phone: [facility] ED Comment on above: Abdominal pain gerryevi g in first trimester (Primary Dx); Urinary tract infection without hematuria, site unspecified Start: 03-25-2021 End: 03-25-2021 ambulatory MARIANNE TUCKER [facility] Start: 03-25-2021 End: 03-25-2021 Office outpatient new 45 minutes Martha Lara DO Work Phone: [facility] [place] Comment on above: Acute nasopharyngiti s (Primary Dx); Exposure to SARS-associated coronavirus; [facility] Start: 03-10-2021 End: 03-11-2021 ambulatory KARLEE E [facility] Start: 03-10-2021 End: 03-10-2021 Subsequent hospital visit by physician Janet Ricci APRN - RONN Work Phone: [facility] Comment on above: Amenorrhea; Positive urine test; Encounter for supervision of normal first in first trimester Start: 03-03-2021 End: 03-03-2021 Office outpatient visit 15 minutes Radha Benavides APRN-[employer] Work Phone: [facility] Comment on above: Positive t est (Primary Dx); Opioid dependence in remission; Encounter for long-term opiate analgesic use Start: 02-26-2021 End: 02-26-2021 Office outpatient visit 15 minutes Radha Benavides APRN-[employer] Work Phone: [facility] Comment on above: Opioid dependence in remission (Primary Dx); Encounter for long-term opiate analgesic use; Anxiety Start: 01-29-2021 End: 01-29-2021 Office outpatient visit 25 minutes Radha Benavides APRN-[employer] Work Phone: [facility] Comment on above: Opioid dependence in remission (Primary Dx); Encounter for long-term opiate analgesic use; Bipolar 1 disorder; Anxiety; Seborrheic dermatitis of scalp; Dysuria; Sensation of pressure in bladder area; Acute cystitis with hematuria Start: 01-01-2021 End: 01-01-2021 Office outpatient visit 15 minutes Radha Benavides APRN-[employer] Work Phone: [facility] Comment on above: Opioid dependence in remission (Primary Dx); Encounter for long-term opiate analgesic use; Anxiety Start: 12-04-2020 End: 12-04-2020 Office outpatient visit 25 minutes Radha Benavides APRN-[employer] Work Phone: [facility] Comment on above: Opioid dependence in remission (Primary Dx); Encounter for long-term opiate analgesic use; Anxiety; Exposure to STD Start: 11-20-2020 End: 11-20-2020 Office outpatient visit 15 minutes Radha Benavides SU[employer]OR [employer] Work Phone: [facility] Comment on above: Opioid dependence in remission (Primary Dx); Encounter for long-term opiate analgesic use; Anxiety Start: 11-06-2020 End: 11-06-2020 Office outpatient visit 15 minutes Radha Mio Benavides SUPER[employer]OR [employer] Work Phone: [facility] Comment on above: Opioid dependence in remission (Primary Dx); Encounter for long-term opiate analgesic use; Anxiety Start: 10-23-2020 End: 10-23-2020 Office outpatient visit 15 minutes Radha Benavides Work Phone: [facility] Comment on above: Opioid dependence in remission; Encounter for long-term opiate analgesic use Start: 10-09-2020 End: 10-09-2020 Office outpatient visit 25 minutes Radha Mio Benavides Work Phone: [facility] Comment on above: Opioid dependence in remission (Primary Dx); Encounter for long-term opiate analgesic use; Vitamin D deficiency Start: 10-02-2020 End: 10-02-2020 Office outpatient visit 25 minutes Radha Benavides Work Phone: [facility] Comment on above: Opioid dependence in remission (Primary Dx); Encounter for long-term opiate analgesic use; Fatigue, unspecified type; Hair loss Start: 09-25-2020 End: 09-25-2020 Office outpatient new 45 minutes Radha Benavides Work Phone: [facility] Comment on above: Encounter for medica l examination to establish care (Primary Dx); Opioid dependence in remission; Encounter for long-term opiate analgesic use; Seborrheic dermatitis of scalp Start: 01-22-2020 End: 01-22-2020 Emergency department patient visit Karlo Warner Work Phone: [facility] Comment on above: Acute bronchitis, un specified organism (Primary Dx); Encounter for medication refill; Nonintractable headache, unspecified chronicity pattern, unspecified headache type Start: 12-18-2019 End: 12-18-2019 Subsequent hospital visit by physician Janet Ricci [facility] Start: 12-14-2019 End: 12-14-2019 Subsequent hospital visit by physician Janet Ricci [facility] Start: 11-16-2019 End: 11-16-2019 Emergency department patient visit Rickyomer Leonardo Timmy Work Phone: [facility] Comment on above: Chlamydia infection (Primary Dx); Pelvic pain Start: 11-10-2019 End: 11-10-2019 Subsequent hospital visit by physician Janet Ricci [facility] Start: 11-08-2019 End: 11-08-2019 Subsequent hospital visit by physician Janet Ricci [facility] Start: 08-24-2019 End: 08-24-2019 Emergency department patient visit Juan Richards Work Phone: [facility] Comment on above: Dysuria (Primary Dx) ; Yeast vaginitis Start: 05-29-2019 End: 05-29-2019 Subsequent hospital visit by physician Janet Ricci [facility] Comment on above: Screening for STD (s exually transmitted disease); Screening for cervical cancer Start: 05-18-2019 End: 05-18-2019 Emergency department patient visit Andrew Esquivelin Work Phone: [facility] ED Comment on above: Concussion without l oss of consciousness, initial encounter (Primary Dx) Start: 10-17-2018 End: 10-17-2018 Patient encounter procedure Harshal Car Facility:[facility] Start: 08-07-2018 End: 08-08-2018 Patient encounter procedure JANET RICCI Facility: Procedures Date Procedure Procedure Detail Performing Clinician Start: 08-20-2022 Smr prim src wet mount nfct agt Wyatt Dsouza [employer] Work Phone: Start: 05-11-2022 Drug test prsmv read direct optical obs pr date Radha Benavides [employer] Work Phone: Start: 03-11-2022 Drug test prsmv read direct optical obs pr date Radha Benavides [employer]OR [employer] Work Phone: Start: 02-08-2022 Drug test prsmv read direct optical obs pr date Radha Benavides SUPER[employer]OR [employer] Work Phone: Start: 01-06-2022 Drug test prsmv read direct optical obs pr date Radha Benavides SU[employer]OR [employer] Work Phone: Start: 12-08-2021 Drug test prsmv read direct optical obs pr date Radha Benavides SUPER[employer]OR [employer] Work Phone: Start: 11-10-2021 Drug test prsmv read direct optical obs pr date Radha Benavides SUPER[employer]OR [employer] Work Phone: Start: 10-15-2021 Urinalysis microscopic only Karlee E P ool [employer] CN Work Phone: Start: 10-15-2021 Urnls dip stick/tablet rgnt auto w/o microscopy Karlee E Pool [employer]OR [employer] CN Work Phone: Start: 09-14-2021 Drug test prsmv read direct optical obs pr date Radha Benavides [employer]OR [employer] Work Phone: Start: 06-16-2021 Drug test prsmv read direct optical obs pr date Radha Benavides SU[employer]OR [employer] Work Phone: Start: 05-24-2021 Antibody screen Sarah Justice MD Work Phone: Start: 05-24-2021 Blood count complete auto&auto difrntl wbc Sarah Justice MD Work Phone: Start: 05-24-2021 Blood typing serologic abo Sarah Justice MD Work Phone: Start: 05-24-2021 Urinalysis microscopic only Sarah Frank Work Phone: Start: 05-24-2021 Urnls dip stick/tablet rgnt auto w/o microscopy Sarah Justice MD Work Phone: Start: 04-08-2021 Urnls dip stick/tablet reagent auto microscopy Juan Richards MD Work Phone: Start: 04-08-2021 Gonadotropin chorionic quantitative Juan Richards MD Work Phone: Start: 03-25-2021 SARS-CoV-2 (COVID-19) RdRp gene [Presence] in Respiratory specimen by MARIA FERNANDA with probe detection Martha Lara DO Work Phone: Start: 03-10-2021 Antibody screen Janet Ricci [employer]OR [employer] [facility] Work Phone: Start: 03-10-2021 Drug screen, qualitate/multi Karlee E Pool [employer] CN Work Phone: Start: 03-10-2021 Antibody hiv-1&hiv-2 single result Karlee E Pool [employer]OR [employer] CN Work Phone: Start: 03-03-2021 Drug test prsmv read direct optical obs pr date Radha Benavides SU[employer]OR [employer] Work Phone: Start: 03-03-2021 Urine test visual color cmprsn meths Radha Benavides [employer]OR [employer] Work Phone: Start: 02-26-2021 Drug test prsmv read direct optical obs pr date Radha Benavides SU[employer]OR [employer] Work Phone: Start: 01-29-2021 Urnls dip stick/tablet rgnt auto w/o microscopy Radha Benavides [employer]OR [employer] Work Phone: Start: 01-29-2021 Drug test prsmv read direct optical obs pr date Radha Benavides [employer]OR [employer] Work Phone: Start: 01-29-2021 Culture bacterial quanttative colony count urine Radha Benavides [employer]OR [employer] Work Phone: Start: 01-01-2021 Drug test prsmv read direct optical obs pr date Radha Benavides SUPER[employer]OR [employer] Work Phone: Start: 12-04-2020 Drug test prsmv read direct optical obs pr date Radha Benavides [employer]OR [employer] Work Phone: Start: 12-04-2020 Iadna chlamydia trachomatis amplified probe tq Radha Benavides [employer] Work Phone: Start: 11-20-2020 Drug test prsmv read direct optical obs pr date Radha Benavides [employer]OR [employer] Work Phone: Start: 11-06-2020 Drug test prsmv read direct optical obs pr date Radha Benavides SU[employer]OR [employer] Work Phone: Start: 10-23-2020 Drug test prsmv read direct optical obs pr date Radha Benavides Work Phone: Start: 10-09-2020 Drug test prsmv read direct optical obs pr date Radha Benavides Work Phone: Start: 10-02-2020 25 hydroxy includes fractions if performed Radha Benavides Work Phone: Start: 10-02-2020 Drug test prsmv read direct optical obs pr date Radha Benavides Work Phone: Start: 10-02-2020 Assay of thyroid stimulating hormone tsh Radha Benavides Work Phone: Start: 10-02-2020 Cyanocobalamin vitamin b-12 Radha segundo Work Phone: Start: 09-29-2020 Choriogonadotropin ( test) [Presence] in Urine Radha Benavides Work Phone: Start: 09-29-2020 Drug test prsmv read direct optical obs pr date Radha Benavides Work Phone: Start: 09-25-2020 Antibody hiv-1 Radha Benavides Work Phone: Start: 09-25-2020 Complete blood count with white cell differential, automated Radha Benavides Work Phone: Start: 09-25-2020 Comprehensive metabolic panel Radha thurman Work Phone: Start: 09-25-2020 Hepatitis A virus IgM Ab [Presence] in Serum or Plasma by Immunoassay Radha Benavides Work Phone: Start: 09-25-2020 Iaad ia hepatitis b surface antigen Radha Benavides Work Phone: Start: 01-22-2020 Radiologic exam chest single view Karlo Warner Work Phone: Start: 01-22-2020 BASIC METABOLIC PANEL W/ REFLEX TO MG FOR LOW K Karlo Warner Work Phone: Start: 01-22-2020 Blood count complete auto&auto difrntl wbc Karlo Warner Work Phone: Start: 01-22-2020 Gonadotropin chorionic qualitative Karlo Warner Work Phone: Start: 12-18-2019 Smr prim src wet mount nfct agt Wyatt Meet Work Phone: Start: 12-14-2019 Hepatic function panel Wyatt Meet Work Phone: Start: 11-16-2019 Us transvaginal Karlo Warner Work Phone: Start: 11-16-2019 Assay of lipase Karlo Warner Work Phone: Start: 11-16-2019 Blood count complete auto&auto difrntl wbc Karlo Warner Work Phone: Start: 11-16-2019 Gonadotropin chorionic qualitative Karlo Warner Work Phone: Start: 11-16-2019 Lactate [Moles/Vol] Karlo Warner Work Phone: Start: 11-08-2019 Acute hepatitis panel Wyatt Meet Work Phone: Start: 11-08-2019 Antibody hiv-1&hiv-2 single result Wyatt Dsouza Work Phone: Start: 11-08-2019 Basic metabolic panel calcium total Wyatt Meet Work Phone: Start: 11-08-2019 Blood count complete automated Wyatt Tiffanie foss Work Phone: Start: 11-08-2019 Gonadotropin chorionic qualitative Wyatt Meet Work Phone: Start: 08-24-2019 Urinalysis microscopic only Veselin Dimi trov Work Phone: Start: 08-24-2019 Urine test visual color cmprsn meths Veselin Maurice Work Phone: Start: 08-24-2019 Urnls dip stick/tablet rgnt auto w/o microscopy Veselin Maurice Work Phone: Start: 05-29-2019 Microscopic observation [Identifier] in Cervix by Cyto stain Juan Richards MD Work Phone: Start: 05-18-2019 Ct head/brain w/o contrast material Andrew Marley Work Phone: Plan of Treatment Date Care Activity Detail Author Start: 2048 Shingles Vaccine (1 of 2) Shingles Vaccine (1 of 2) [facility] Work Phone: Start: 10-24-2023 End: 10-24-2023 Clinical Support Encounter 10/24/2023 2:00 PM EDT Clinical Support Encounter [facility] [address] [place] [id number] [facility] Start: 10-14-2023 End: 10-14-2023 Telemedicine consultation with patient 10/14/2023 11:45 AM EDT Telemedicine [facility] [address] [place] [address] Virginia Cox, [address] [place] [address] [facility] Start: 03-18-2023 COVID-19 VACCINE ( season) COVID-19 VACCINE ( season) [facility] Start: 03-18-2023 Influenza vaccination INFLUENZA VACC INE (#1) [facility] Start: 09-14-2022 Depression Monitoring Depression [facility] Start: 09-14-2022 DTaP/Tdap/Td vaccine (6 - Td or Tdap) DTaP/Tdap/Td vaccine (6 - Td or Tdap) [facility] Comment on above: Postponed from 01/26 (Patient Refused) Start: 09-14-2022 Influenza vaccination [facility] Comment on above: Postponed from 03/18 (Patient Refused) Postponed from 03/18 (Patient Refused) Start: 06-08-2022 End: 06-08-2022 Patient encounter procedure 06/08/2022 Office Visit Family Medicine Radha Benavides, [employer] [address] [place] [address] [facility] Start: 05-29-2022 Cervical cancer screen Cervical canc er screen [facility] Work Phone: Start: 05-29-2022 Screening for malign ant neoplasm of cervix [facility] Start: 04-08-2022 End: 04-08-2022 Patient encounter procedure 04/08/2022 Office Visit Family Medicine Radha Benavides, [employer] [address] [place] [address] [facility] Start: 03-18-2022 Influenza vaccination [facility] Start: 03-10-2022 Screening for Chlamy mariela trachomatis [facility] Start: 03-09-2022 End: 03-09-2022 Patient encounter procedure 03/09/2022 Office Visit Family Medicine Radha Benavides, [employer] [address] [place] [address] [facility] Start: 02-15-2022 Influenza vaccination Flu vaccine (# 1) [facility] Start: 02-03-2022 End: 02-03-2022 Patient encounter procedure 02/03/2022 Office Visit Family Medicine Radha Benavides, SUPER[employer]OR [employer] [address] [place] [address] [facility] Start: 01-05-2022 End: 01-05-2022 Patient encounter procedure 01/05/2022 Office Visit Family Medicine Radha Benavides, SUPER[employer]OR [employer] [address] [place] [address] [facility] Start: 12-08-2021 End: 12-08-2021 Patient encounter procedure 12/08/2021 Office Visit Family Medicine Radha Benavides, SUPER[employer]OR [employer] [address] [place] [address] [facility] Start: 12-04-2021 GONORRHEA SCREEN GONORRHEA SCREEN [facility] Start: 12-04-2021 Screening for Chlamy mariela trachomatis [facility] Start: 11-02-2021 End: 11-02-2021 Professional / ancillary services management 11/02/2021 Ancillary Procedure Obstetrics and Gynecology [facility] Start: 11-02-2021 End: 11-02-2021 Patient encounter procedure [facility] Start: 11-02-2021 End: 11-02-2021 Professional / ancillary services management 11/02/2021 Ancillary Procedure Obstetrics and Gynecology [facility] Start: 10-29-2021 End: 10-29-2021 Patient encounter procedure [facility] Start: 10-26-2021 End: 10-26-2021 Professional / ancillary services management 10/26/2021 Ancillary Procedure Obstetrics and Gynecology [facility] Start: 10-26-2021 End: 10-26-2021 Patient encounter procedure [facility] Start: 10-26-2021 End: 10-26-2021 Professional / ancillary services management 10/26/2021 Ancillary Procedure Obstetrics and Gynecology [facility] Start: 10-22-2021 End: 10-22-2021 Patient encounter procedure [facility] Start: 10-19-2021 End: 10-19-2021 Patient encounter procedure 10/19/2021 Routine Obstetrics and Gynecology Karlee Hassan APRN - CNM [address] [place] [address] [facility] Start: 10-19-2021 End: 10-19-2021 Patient encounter procedure [facility] Start: 10-19-2021 End: 10-19-2021 Professional / ancillary services management 10/19/2021 Ancillary Procedure Obstetrics and Gynecology [facility] Start: 10-15-2021 End: 10-15-2021 Patient encounter procedure [facility] Start: 10-13-2021 End: 10-13-2021 Patient encounter procedure 10/13/2021 Office Visit Family Medicine Radha Benavides, SUPER[employer]OR [employer] [address] [place] [address] [facility] Start: 10-12-2021 End: 10-12-2021 Professional / ancillary services management 10/12/2021 Ancillary Procedure Obstetrics and Gynecology [facility] Start: 10-12-2021 End: 10-12-2021 Patient encounter procedure [facility] Start: 10-12-2021 End: 10-12-2021 Professional / ancillary services management 10/12/2021 Ancillary Procedure Obstetrics and Gynecology [facility] Start: 10-08-2021 End: 10-08-2021 Patient encounter procedure [facility] Start: 10-05-2021 End: 10-05-2021 Patient encounter procedure 10/05/2021 Routine Obstetrics and Gynecology Karlee Hassan APRN - SOMMERM [address] [facility] [place] [place] [address] [facility] Start: 10-05-2021 End: 10-05-2021 Patient encounter procedure [facility] Start: 10-05-2021 End: 10-05-2021 Professional / ancillary services management 10/05/2021 Ancillary Procedure Obstetrics and Gynecology [facility] Start: 10-02-2021 End: 10-02-2021 Patient encounter procedure 10/02/2021 Appointment IP Unit Fan Noel, RD, LD [facility] Start: 10-01-2021 End: 10-01-2021 Patient encounter procedure [facility] Start: 09-28-2021 End: 09-28-2021 Professional / ancillary services management 09/28/2021 Ancillary Procedure Obstetrics and Gynecology [facility] Start: 09-28-2021 End: 09-28-2021 Patient encounter procedure [facility] Start: 09-28-2021 End: 09-28-2021 Professional / ancillary services management 09/28/2021 Ancillary Procedure Obstetrics and Gynecology [facility] Start: 09-24-2021 End: 09-24-2021 Patient encounter procedure 09/24/2021 Routine Obstetrics and Gynecology Avery Ovalle MD [address] [place], [place] [id number] [facility] Start: 09-21-2021 End: 09-21-2021 Patient encounter procedure [facility] Start: 09-21-2021 End: 09-21-2021 Professional / ancillary services management 09/21/2021 Ancillary Procedure Obstetrics and Gynecology [facility] Start: 09-17-2021 End: 09-17-2021 Patient encounter procedure [facility] Start: 09-14-2021 End: 09-14-2021 Patient encounter procedure [facility] Start: 09-14-2021 End: 09-14-2021 Professional / ancillary services management 09/14/2021 Ancillary Procedure Obstetrics and Gynecology [facility] Start: 09-10-2021 End: 09-10-2021 Patient encounter procedure [facility] Start: 09-07-2021 End: 09-07-2021 Patient encounter procedure [facility] Start: 09-07-2021 End: 09-07-2021 Professional / ancillary services management 09/07/2021 Ancillary Procedure Obstetrics and Gynecology [facility] Start: 08-27-2021 End: 08-27-2021 Patient encounter procedure [facility] Start: 08-25-2021 End: 08-25-2021 Patient encounter procedure [facility] Start: 08-25-2021 End: 08-25-2021 Professional / ancillary services management 08/25/2021 Ancillary Procedure Obstetrics and Gynecology [facility] Start: 07-14-2021 End: 07-14-2021 Patient encounter procedure 07/14/2021 Office Visit Family Medicine Radha Benavides, SUPERVISOR [employer] [address] [place] [address] [facility] Start: 06-15-2021 End: 06-15-2021 Patient encounter procedure [facility] Start: 06-15-2021 End: 06-15-2021 Professional / ancillary services management 06/15/2021 Ancillary Procedure Obstetrics and Gynecology [facility] Start: 05-26-2021 End: 05-26-2021 Patient encounter procedure 05/26/2021 Routine Obstetrics and Gynecology Avery Ovalle MD [address] [place] [address] [facility] ADVERTISING REP Start: 04-14-2021 End: 04-14-2021 Patient encounter procedure 04/14/2021 Routine Obstetrics and Gynecology Avery Ovalle MD [address] [place], [place] [id number] [facility] ADVERTISING REP Start: 03-26-2021 End: 03-26-2021 Patient encounter procedure 03/26/2021 Office Visit Family Medicine Radha Benavides, SUPERVISOR [employer] [address] [place] [address] [facility] Start: 03-18-2021 Influenza vaccination [facility] Start: 03-17-2021 End: 03-17-2021 Patient encounter procedure 03/17/2021 Routine Obstetrics and Gynecology Karlee Hassan APRN - [facility] [address] [place] [address] [phone] [facility] Start: 03-17-2021 End: 03-17-2021 Professional / ancillary services management 03/17/2021 Ancillary Procedure Obstetrics and Gynecology [facility] Start: 02-26-2021 End: 02-26-2021 Patient encounter procedure 02/26/2021 Office Visit Family Medicine Radha Benavides [employer] [address] [place] [address] [phone] [facility] Start: 01-29-2021 End: 01-29-2021 Patient encounter procedure 01/29/2021 Office Visit Family Medicine Radha Benavides, SUPERVISOR [employer] [address] [place] [address] [phone] [facility] Start: 01-26-2021 DTaP/Tdap/Td vaccine (6 - Td or Tdap) DTaP/Tdap/Td vaccine (6 - Td or Tdap) [facility] Start: 01-26-2021 DTaP/Tdap/Td vaccine (6 - Td) DTaP/Tdap/Td vaccine (6 - Td) [facility] [place], [place] Start: 01-26-2021 Tetanus vaccination [facility] Start: 01-01-2021 End: 01-01-2021 Patient encounter procedure 01/01/2021 Office Visit Family Medicine Radha Benavides, SUPERVISOR [employer] [address] [place] [address] [phone] [facility] Start: 12-17-2020 Screening for Chlamy mariela trachomatis Chlamydia screen [facility] [place] Start: 12-04-2020 End: 12-04-2020 Patient encounter procedure 12/04/2020 Office Visit Family Medicine Radha Benavides, SUPERVISOR [employer] [address] [place] [address] [phone] [facility] Start: 11-20-2020 End: 11-20-2020 Patient encounter procedure 11/20/2020 Office Visit Family Medicine Radha Benavides, SUPERVISOR [employer] [address] [place] [address] [phone] [facility] Start: 11-09-2020 Screening for Chlamy mariela trachomatis Chlamydia screen [facility] Start: 11-06-2020 End: 11-06-2020 Office Visit 11/06/2020 Office Visit Family Medicine Radha Benavides SU[employer]OR [employer] [address] [place] [address] [phone] [facility] Start: 10-23-2020 End: 10-23-2020 Office Visit 10/23/2020 Office Visit Family Medicine Radha Benavides, SUPERVISOR [employer] [address] [place] [address] [phone] [facility] Start: 10-09-2020 End: 10-09-2020 Office Visit 10/09/2020 Office Visit Family Medicine Radha Benavides, SUPERVISOR [employer] [address] [place] [address] [phone] [facility] Start: 10-02-2020 End: 10-02-2020 Office Visit 10/02/2020 Office Visit Family Medicine Radha Benavides, SUPERVISOR [employer] [address] [place] [address] [phone] [facility] Start: 08-24-2020 Screening for Chlamy mariela trachomatis Chlamydia screen [facility] [place] Start: 06-19-2020 Influenza vaccination [facility] [employer] Phone: Comment on above: Postponed from 03/18 (Patient Refused) Postponed from 03/18 (Patient Refused) Start: 05-29-2020 Chlamydia screen Chlamydia screen [place] [employer] Phone: Start: 03-18-2020 Influenza vaccination [place], [place] Start: 08-06-2019 Chlamydia screen Chlamydia screen [place], [place] Start: 06-12-2019 End: 06-12-2019 Procedure visit 06/12/2019 Procedure visit Obstetrics and Gynecology Avery Ovalle MD [facility] [place] [address] [facility] Start: 2019 Cervical cancer screen Cervical canc er screen [place], [place] Start: 2019 Screening for malign ant neoplasm of cervix CERVICAL CANCER SCREENING DISCUSSION [facility] Start: 03-18-2019 Influenza vaccination Flu vaccine (# 1) [place], [place] Start: 2017 DTaP/Tdap/Td vaccine (1 - Tdap) DTaP/Tdap/Td vaccine (1 - Tdap) [place], [place] Start: 2017 Third diphtheria, tetanus and acellular pertussis (DTaP) vaccination TDAP (ADULT) [facility] Start: 2016 Hepatitis C screening Hepatitis C [facility] Start: 2016 Tetanus vaccination TETANUS [facility] Start: 2014 COVID-19 VACCINE (1) COVID-19 VACCIN E (1) [facility] Start: 2014 Screening for Chlamy mariela trachomatis CHLAMYDIA SCREEN [facility] Start: 2013 HIV screening HIV Screening [facility] Start: 2013 HPV vaccine (1 - Fem jessica 3-dose series) HPV vaccine (1 - Female 3-dose series) [place], [place] Start: 2011 Varicella Vaccine (1 of 2 - 13+ 2-dose series) Varicella Vaccine (1 of 2 - 13+ 2-dose series) [place], [place] Start: 2010 COVID-19 VACCINE (1) COVID-19 VACCIN E (1) [facility] Start: 2010 Depression screening using PHQ-9 (Patient Health Questionnaire 9) score Depression Screening (PHQ9) [facility] Start: 2009 Vaccination for virgilio n papillomavirus HPV VACCINE ADOL (1 - 2-dose series) [facility] Start: 2004 Pneumococcal 0-64 ye ars Vaccine (1 of 1 - PPSV23) Pneumococcal 0-64 years Vaccine (1 of 1 - PPSV23) [facility] [place] Start: 2004 Pneumococcal 0-64 ye ars Vaccine (1 of 2 - PPSV23) Pneumococcal 0-64 years Vaccine (1 of 2 - PPSV23) [facility] Start: 2004 PNEUMOCOCCAL VACCINE SERIES (1 of 2 - PPSV23) PNEUMOCOCCAL VACCINE SERIES (1 of 2 - PPSV23) [facility] Start: 2004 Pneumococcal Vaccine : Ped or At-Risk (1 of 2 - PPSV23) Pneumococcal Vaccine: Ped or At-Risk (1 of 2 - PPSV23) [facility] Start: 2003 COVID-19 VACCINE (#1) COVID-19 VACCI NE (#1) [facility] Start: 2003 COVID-19 Vaccine (1) COVID-19 Vaccin e (1) [facility] Start: 2001 History and physical examination, annual for health maintenance Wellness Visit [facility] Start: 1998 COVID-19 VACCINE (#1) COVID-19 VACCI NE (#1) [facility] Start: 1998 GONORRHEA SCREEN GONORRHEA SCREEN [facility] Start: 1998 Screening for Chlamy mariela trachomatis Chlamydia Screening [facility] Start: 1998 Screening for malign ant neoplasm of cervix Pap Smear [facility] End: 08-24-2019 Bacteria identified Cx Nom (U) Urine Culture Microbiology Routine Once for 1 Occurrences starting 08/24/2019 until 08/24/2019 [facility] [employer] Phone: Comment on above: Once for 1 Occurrenc es starting 08/24/2019 until 08/24/2019 Bacteria identified Cx Nom (U) [facility] Phone: End: 10-15-2021 Bacteria identified in Urine by Culture [employer] Phone: Comment on above: One Time for 1 Occur rences starting 10/15/2021 until 10/15/2021 End: 11-10-2019 C.trachomatis N.gonorrhoeae DNA C.trachomatis N.gonorrhoeae DNA Microbiology Routine Once for 1 Occurrences starting 11/10/2019 until 11/10/2019 [facility] [place] Comment on above: Once for 1 Occurrenc es starting 11/10/2019 until 11/10/2019 C.trachomatis N.gonorrhoeae DNA [facility] [place] End: 12-18-2019 C.trachomatis N.gonorrhoeae DNA C.trachomatis N.gonorrhoeae DNA Microbiology Routine Once for 1 Occurrences starting 12/18/2019 until 12/18/2019 [facility] [place] Comment on above: Once for 1 Occurrenc es starting 12/18/2019 until 12/18/2019 End: 08-20-2022 C.trachomatis N.gonorrhoeae DNA [facility] Phone: Comment on above: Once for 1 Occurrenc es starting 08/20/2022 until 08/20/2022 End: 08-24-2019 C.trachomatis N.gonorrhoeae DNA, Urine C.trachomatis N.gonorrhoeae DNA, Urine Microbiology Routine One Time for 1 Occurrences starting 08/24/2019 until 08/24/2019 [employer] Phone: Comment on above: One Time for 1 Occur rences starting 08/24/2019 until 08/24/2019 C.trachomatis N.gonorrhoeae DNA, Urine [employer] Phone: End: 03-10-2021 C.trachomatis N.gonorrhoeae DNA, Urine C.trachomatis N.gonorrhoeae DNA, Urine Microbiology Routine Amenorrhea Positive urine test Encounter for supervision of normal first in first trimester 1 Occurrences starting 03/10/2021 until 03/10/2021 [employer] Phone: Comment on above: 1 Occurrences starti ng 03/10/2021 until 03/10/2021 End: 05-29-2019 Chlamydia/GC DNA, Thin Prep Chlamydia/GC DNA, Thin Prep Microbiology Routine Screening for STD (sexually transmitted disease) 1 Occurrences starting 05/29/2019 until 05/29/2019 [facility] above: 1 Occurrences starti ng 05/29/2019 until 05/29/2019 Chlamydia/GC DNA, Th in Prep Chlamydia/GC DNA, Thin Prep Microbiology Routine Screening for STD (sexually transmitted disease) 05/29/2019 12:22 PM EST [facility]/GONOCOCCUS , MARIA FERNANDA CHLAMYDIA/GONOCOCCUS, MARIA FERNANDA Microbiology Routine Exposure to STD 12/04/2020 11:40 AM [facility] End: 11-10-2019 Culture, Genital Culture, Genital Microbiology Routine Once for 1 Occurrences starting 11/10/2019 until 11/10/2019 [facility] Comment on above: Once for 1 Occurrenc es starting 11/10/2019 until 11/10/2019 Culture, Genital Culture, Genita l Microbiology Routine [facility] End: 10-05-2021 Culture, Strep B Screen, Vaginal/Rectal [employer] Phone: Comment on above: 1 Occurrences starti ng 10/05/2021 until 10/05/2021 End: 03-10-2021 Culture, Urine Culture, Urine Microbiology Routine Amenorrhea Positive urine test Encounter for supervision of normal first in first trimester 1 Occurrences starting 03/10/2021 until 03/10/2021 [employer] Phone: Comment on above: 1 Occurrences starti ng 03/10/2021 until 03/10/2021 End: 04-08-2021 Culture, Urine Culture, Urine Microbiology Routine Once for 1 Occurrences starting 04/08/2021 until 04/08/2021 [employer] Phone: Comment on above: Once for 1 Occurrenc es starting 04/08/2021 until 04/08/2021 End: 05-29-2019 Cytopathology procedure, preparation of smear, genital source PAP Smear Lab Routine Screening for cervical cancer 1 Occurrences starting 05/29/2019 until 05/29/2019 [facility] Comment on above: 1 Occurrences starti ng 05/29/2019 until 05/29/2019 End: 10-05-2021 nonstress test nonstress test OB Routine One Time for 1 Occurrences starting 10/05/2021 until 10/05/2021 [employer] Phone: Comment on above: One Time for 1 Occur rences starting 10/05/2021 until 10/05/2021 End: 10-15-2021 nonstress test nonstress test OB Routine One Time for 1 Occurrences starting 10/15/2021 until 10/15/2021 [employer] Phone: Comment on above: One Time for 1 Occur rences starting 10/15/2021 until 10/15/2021 Nonrebreather mask oxygen Nonrebreather mask oxygen Respiratory Care Routine As directed - RT (PRN) until discontinued starting 10/15/2021 [employer] Phone: Comment on above: As directed - RT (MT N) until discontinued starting 10/15/2021 End: 10-15-2021 SVE SVE Point of Care Testing Routine One Time for 1 Occurrences starting 10/15/2021 until 10/15/2021 [employer] Phone: Comment on above: One Time for 1 Occur rences starting 10/15/2021 until 10/15/2021 End: 11-16-2019 Urinalysis, reflex to microscopic Urinalysis, reflex to microscopic Lab STAT One Time for 1 Occurrences starting 11/16/2019 until 11/16/2019 [facility] [place] Comment on above: One Time for 1 Occur rences starting 11/16/2019 until 11/16/2019 Immunizations Immunization Date Immunization Notes Care Provider Smooth fernández 05-31-2007 influenza virus vaccine, unspecified formulation Radha Benavides [employer] Work Phone: [facility] Payers Date Payer Category Payer Unknown [id number] 2020 Unknown [id number] 2021 Unknown [id number]. [id number] 2018 Self-pay 2016 Unknown [facility] MEDICAID xxxxxxxxxxx 2016-Present [phone] CLAIMS DEPARTMENT [address] [place] [address] xxxxxxxxxxx [id number]. [id number] 1998 Unknown [id number] 2.16.840.1.083669.3.579.2.593 1998 Unknown [id number] 2.16.840.1.105408.3.579.2.903 1998 Unknown [id number] 2.16.840.1.145065.3.579.2.174 1998 Unknown [id number] 2.16.840.1.482455.3.579.2.174 1998 Unknown [id number] 2.16.840.1.308971.3.579.2.174 1998 Unknown [id number] 2.16.840.1.590029.3.579.2.174 1998 Unknown [id number] 2.16.840.1.967763.3.579.2.174 1998 Unknown [id number] 2.16.840.1.294508.3.579.2.174 1998 Unknown [id number] 2.16.840.1.799794.3.579.2.174 1998 Unknown [id number] 2.16.840.1.108605.3.579.2.174 1998 Unknown [id number] 2.16.840.1.803661.3.579.2.174 1998 Unknown [id number] 2.16.840.1.526048.3.579.2.983 1998 Unknown [id number] 2.16.840.1.456768.3.579.2.983 1998 Unknown [id number] 2.16.840.1.770898.3.579.2.983 1998 Unknown [id number] 2.16.840.1.406019.3.579.2.983 1998 Unknown [id number] 2.16.840.1.246863.3.579.2.983 1998 Unknown [id number] 2.16.840.1.201145.3.579.2.983 1998 Unknown [id number] 2.16.840.1.835486.3.579.2.983 1998 Unknown [id number] 2.16.840.1.969037.3.579.2.983 1998 Unknown [id number] 2.16.840.1.533878.3.579.2.983 1998 Unknown [id number] 2.16.840.1.736458.3.579.2.983 1998 Unknown [id number] 2.16.840.1.102489.3.579.2.983 1998 Unknown [id number] 2.16.840.1.437432.3.579.2.983 1998 Unknown [id number] 2.16.840.1.733054.3.579.2.983 1998 Unknown [id number] 2.16.840.1.192483.3.579.2.173 1998 Unknown [id number] 2.16.840.1.126690.3.579.2.173 1998 Unknown [id number] 2.16.840.1.250130.3.579.2.173 1998 Unknown [id number] 2.16.840.1.108771.3.579.2.173 1998 Unknown [id number] 2.16.840.1.884672.3.579.2.173 1998 Unknown [id number] 2.16.840.1.170742.3.579.2.173 1998 Unknown [id number] 2.16.840.1.070059.3.579.2.173 1998 Unknown [id number] 2.16.840.1.050827.3.579.2.983 1998 Unknown [id number] 2.16.840.1.781941.3.579.2.983 1998 Unknown [id number] 2.16.840.1.103780.3.579.2.983 1998 Unknown [id number] 2.16.840.1.217841.3.579.2.983 1998 Unknown [id number] 2.16.840.1.250318.3.579.2.983 1998 Unknown [id number] 2.16.840.1.850651.3.579.2.983 1959 Unknown [id number] Unknown [id number] 2.16.840.1.731271.3.579.2.531 Social History Date Type Detail Facility Start: 05-18-2019 End: 09-25-2020 Tobacco smoking status MDIS Current every day smoker [facility] History of tobacco use Cigarette Smoker [place], [place] Start: 05-18-2019 End: 09-16-2023 Alcohol intake Yes [place], [place] Start: 09-29-2016 Alcohol Comment occasional [place], [place] Start: 1998 Sex Assigned At Not on file [place], [place] Start: 08-24-2019 End: 09-16-2023 Cigarettes smoked current (pack per day) - Reported [facility] [employer] Work Phone: Start: 08-24-2019 End: 12-15-2021 Alcohol intake Current drinker of alcohol (finding) [place], [place] Start: 09-12-2019 Alcohol Comment occasional , weekend s [facility] [place], [place] Exposure to SARS-CoV -2 (event) Unable to assess [facility] [place] Start: 09-25-2020 End: 09-16-2023 Tobacco use and exposure Never used [facility] Start: 09-25-2020 End: 09-16-2023 Alcohol intake Ex-drinker (finding) [facility] Start: 10-02-2020 Tobacco Comment <1 pack daily 1 [facility] Start: 02-09-2021 [facility] Work Phone: Start: 03-25-2021 Tobacco smoking stat [facility] Light tobacco smoker [facility] Start: 09-25-2021 End: 10-15-2021 Exposure to SARS-CoV-2 (event) Not sure [facility] Start: 06-12-2021 End: 09-16-2023 Tobacco smoking status NHIS Ex-smoker [facility] Start: 05-19-2021 Tobacco smoking stat [facility] Occasional tobacco smoker [facility] Start: 09-14-2021 End: 05-11-2022 Tobacco Comment Pt seldom vapes [facility] History of tobacco use Current smoker [facility] Start: 12-15-2021 Alcohol Comment occ [facility] Work Phone: Adolescent depressio n screening assessment 9 [facility] Medical Equipment Procedure Code Equipment Code Equipment Origin al Text Equipment Identifier Dates Fasting & 2 hr P P each meal [id number] Start: 09-10-2021 Pt to test four times daily fasting, 2 hr pp, bedtime [id number] Start: 09-10-2021 1 each by Other route 4 times daily One glucometer, test strips, lancets - per insurance coverage [id number] Start: 09-10-2021 End: 09-10-2022 Pt to check BS fasting 2 hours post each meal [id number] Start: 09-10-2021 Clinical Notes 11-06-2020 to 09-26-2023 Nicole Norton RN - 09/26/2023 2:00 PM Sara Benavides APRN-RONN - 05/11/2022 8:20 AM Sara Benavides APRN-[employer] - 03/11/2022 9:50 AM EDTRadha Mio Benavides, YNES-[employer] - 02/08/2022 9:40 AM EDT Note Date & Type Note Facility 09-26-2023 History of Present illness Narrative 1420-Patient arrived per ambulation, accompanied by self. Alert, oriented x 3. Assisted to recliner. Patient states she has received sublocade in the past. Ice provided to apply to site prior to injection. 1505- Discharged per ambulation, accompanied by self, in stable condition. Verbalizes understanding of instructions. documented in this encounter [facility] 05-11-2022 History of Present illness Narrative Follow Up Visit Christine Salcido [id number] 1998 05/11/2022 Chief Complaint Patient presents with Addiction problem History of Present Illness: Christine Salcido is a 22 y.o. female presenting for follow up for MAT. Following with [employer]. Was dx with gestational dm. Post baby girl 10/26/21. Currently . She would like to wean down eventually and get off of the MAT management completely. Current management is with Subutex 8 mg daily. Taking as prescribed. Denies any cravings, but will get triggers and start thinking about using but not very often. No SE. Denies reason to have red flags, diversion, or aberrant behaviors. Denies any use of any other illicit substance. Doing well on the current dose. No problems or concerns expressed. Feels that current management is helping. Dose seems appropriate. Feels that she is doing well. Consoling- is compliant and verified per last report. States going to consoling with Kindra De La Rosa in [place]. Attending as set up and directed by the consoling center. Aware the need to remain compliant in consoling while active in the MAT program. Aware to have the consoling center send reports to the office. Bi-polar- chronic. Stable. No med management at this time. Asking for refill of ketoconazole shampoo. History: Past Medical History: Diagnosis Date Anxiety Bipolar 1 disorder Drug abuse in remission GERD (gastroesophageal reflux disease) Gestational diabetes Stomach ulcer Past Surgical History: Procedure Laterality Date COLONOSCOPY DIAGNOSTIC 2010 BRONCHOSCOPY FLEXIBLE DIAGNOSTIC 2010 2017 History reviewed. No pertinent family history. Social History Socioeconomic History Marital status: Single Tobacco Use Smoking status: Former Years: 7.00 Types: Cigarettes Smokeless tobacco: Never Tobacco comments: Pt seldom vapes Vaping Use Vaping Use: Some days Substances: seldom Substance and Sexual Activity Alcohol use: Not Currently Drug use: Not Currently Comment: Prescribed Zubsolv Sexual activity: Not Currently Partners: Male Social History Tobacco Use Smoking Status Former Years: 7.00 Types: Cigarettes Smokeless Tobacco Never Tobacco Comments Pt seldom vapes Social History Substance and Sexual Activity Alcohol Use Not Currently Social History Substance and Sexual Activity Drug Use Not Currently Comment: Prescribed Zubsolv Allergies: Patient has no known allergies. Home Medications: Current Outpatient Medications: buprenorphine 8 MG sublingual tablet, Place 1 tablet under tongue daily., Disp: 30 tablet, Rfl: 0 ketoconazole 2 % Shampoo shampoo, Apply 1 Application topically 3 times weekly. Apply topically to wet hair 3-4 times a week, Disp: 120 mL, Rfl: [address] omep[address] capsule, Take 20 mg by mouth 2 times daily as needed. , Disp: , Rfl: naloxone 4 MG/0.1ML, 1 spray by Nasal route once for 1 dose. [place] into the nose as directed. Call 911. If no response in 2 minutes use a new nasal spray in other nostril. Repeat until help arrives., Disp: 1 Each, Rfl: 0 ROS: Review of Systems Constitutional: Negative for activity change, appetite change, diaphoresis, fatigue and fever. Respiratory: Negative for cough, chest tightness, shortness of breath and wheezing. Cardiovascular: Negative for chest pain, palpitations and leg swelling. Gastrointestinal: Negative for abdominal pain, constipation, diarrhea, nausea and vomiting. Skin: Negative for color change, rash and wound. Neurological: Negative for dizziness, tremors, facial asymmetry, weakness, light-headedness and headaches. Psychiatric/Behavioral: Negative for agitation, sleep disturbance and suicidal ideas. The patient is not nervous/anxious and is not hyperactive. Physical Examination: Vital Signs: BP 102/70 (BP Location: Left arm, BP Position: Sitting) Pulse 86 Temp 98.3 F (36.8 C) (Temporal) Resp 18 Ht 1.575 m (5' 2 ) Wt 51.3 kg (113 lb) SpO2 98% BMI 20.67 kg/m Smoking Status Former Physical Exam Constitutional: General: She is awake. Appearance: Normal appearance. Cardiovascular: Rate and Rhythm: Normal rate. Pulses: Normal pulses. No decreased pulses. Pulmonary: Effort: Pulmonary effort is normal. No accessory muscle usage, prolonged expiration or respiratory distress. Abdominal: Tenderness: There is no right CVA tenderness or left CVA tenderness. Musculoskeletal: Right lower leg: No edema. Left lower leg: No edema. Skin: General: Skin is warm and dry. Capillary Refill: Capillary refill takes less than 2 seconds. Neurological: Mental Status: She is alert and oriented to person, place, and time. Sensory: Sensation is intact. Motor: Motor function is intact. Coordination: Coordination is intact. Gait: Gait is intact. Psychiatric: Mood and Affect: Mood normal. Mood is not anxious or depressed. Behavior: Behavior is cooperative. Thought Content: Thought content normal. Thought content is not paranoid or delusional. Thought content does not include homicidal or suicidal ideation. Thought content does not include homicidal or suicidal plan. Cognition and Memory: Cognition normal. Laboratory and Additional Data Reviewed: Results for orders placed or performed in visit on 04/08/22 [facility] DRUG SCREEN Result Value Ref Range Marijuana (THC), poct Negative COCAINE (NADIRA), POCT Negative Opiate (OPI), poct Negative Methamphetamine (mAMP/MET), poct Negative Amphetamine (AMP), poct Negative Barbiturates (BAR), poct Negative Methadone (MTD), poct Negative Ecstasy (MDMA), poct Negative Oxycodone (OXY), poct Negative Phencyclidine (PCP), poct Negative Propoxyphene (PPX), poct Negative OXAZEPAM (BZO),POCT Negative Buprenorphine Glucuronide (BUPG),poct Positive Nortripyline (TCA), poct Negative No images are attached to the encounter. Assessment and Plan: Christine Salcido is a 22 y.o. female that presents for follow up. Current management with Subutex 8 mg per day. Does feel that the current dose is appropriate. No se from the meds. Is taking as prescribed. No red flags. No diversion. -UDS as noted. Pos for BUP. Appropriate and compliant. Neg for anything else. -OARRS reviewed. Appropriate and compliant. Post . Breast feeding. Wanting and working on tapering until more stable from post . Tolerating ok. Cons[facility]ing is with [facility] in [place]. Will cont with them. Compliant and verified per last report. -aware will need to remain active in consoling to be active in the program. Fu in 1 month -MAT Call the office for any questions or concerns. I did have discussion that if any medications are not covered or is not able to get the medications to call the office and let us know so other alternative/arrangements can be made. Christine was seen today for addiction problem. Diagnoses and all orders for this visit: Opioid dependence in remission - POCT ALERE DRUG SCREEN - buprenorphine 8 MG sublingual tablet; Place 1 tablet under tongue daily. Encounter for long-term opiate analgesic use - POCT ALERE DRUG SCREEN - buprenorphine 8 MG sublingual tablet; Place 1 tablet under tongue daily. TAMICA Zavaleta documented in this encounter [facility] 03-11-2022 History of Present illness Narrative Follow Up Visit Christine Salcido [id number] 2000 03/11/2022 Chief Complaint Patient presents with Medication Management Opioid dependence History of Present Illness: Christine Salcido is a 21 y.o. female presenting for follow up for MAT. Following with [facility]. Was dx with gestational dm. Post baby girl 10/26/21. Currently . She would like to wean down eventually and get off of the MAT management completely. Current management is with Subutex 8 mg daily. Taking as prescribed. Denies any cravings, but will get triggers and start thinking about using but not very often. No SE. Denies reason to have red flags, diversion, or aberrant behaviors. Denies any use of any other illicit substance. Doing well on the current dose. No problems or concerns expressed. Feels that current management is helping. Dose seems appropriate. Feels that she is doing well. Consoling- is compliant and verified per last report. States going to consoling with [facility] in [place]. Attending as set up and directed by the consoling center. Aware the need to remain compliant in consoling while active in the MAT program. Aware to have the consoling center send reports to the office. Bi-polar- chronic. Stable. No med management at this time. History: Past Medical History: Diagnosis Date Anxiety Bipolar 1 disorder Drug abuse in remission GERD (gastroesophageal reflux disease) Gestational diabetes Stomach ulcer Past Surgical History: Procedure Laterality Date COLONOSCOPY DIAGNOSTIC 2010 BRONCHOSCOPY FLEXIBLE DIAGNOSTIC 2010 2017 History reviewed. No pertinent family history. Social History Socioeconomic History Marital status: Single Tobacco Use Smoking status: Former Smoker Years: 7.00 Types: Cigarettes Smokeless tobacco: Never Used Tobacco comment: Pt seldom vapes Vaping Use Vaping Use: Some days Substances: seldom Substance and Sexual Activity Alcohol use: Not Currently Drug use: Not Currently Comment: Prescribed Zubsolv Sexual activity: Not Currently Partners: Male Social History Tobacco Use Smoking Status Former Smoker Years: 7.00 Types: Cigarettes Smokeless Tobacco Never Used Tobacco Comment Pt seldom vapes Social History Substance and Sexual Activity Alcohol Use Not Currently Social History Substance and Sexual Activity Drug Use Not Currently Comment: Prescribed Zubsolv Allergies: Patient has no known allergies. Home Medications: Current Outpatient Medications: buprenorphine 8 MG sublingual tablet, Place 1 tablet under tongue daily., Disp: 30 tablet, Rfl: 0 ketoconazole 2 % Shampoo shampoo, Apply 1 Application topically 3 times weekly. Apply topically to wet hair 3-4 times a week, Disp: 120 mL, Rfl: [address] omepraz[address] capsule, Take 20 mg by mouth 2 times daily as needed. , Disp: , Rfl: naloxone 4 MG/0.1ML, 1 spray by Nasal route once for 1 dose. [place] into the nose as directed. Call 911. If no response in 2 minutes use a new nasal spray in other nostril. Repeat until help arrives., Disp: 1 Each, Rfl: 0 ROS: Review of Systems Constitutional: Positive for fatigue. Negative for activity change, appetite change, diaphoresis and fever. Body aches HENT: Positive for sore throat. Respiratory: Negative for cough, chest tightness, shortness of breath and wheezing. Cardiovascular: Negative for chest pain, palpitations and leg swelling. Gastrointestinal: Negative for abdominal pain, constipation, diarrhea, nausea and vomiting. Skin: Negative for color change, rash and wound. Neurological: Positive for headaches. Negative for dizziness, tremors, facial asymmetry, weakness and light-headedness. Psychiatric/Behavioral: Negative for agitation, sleep disturbance and suicidal ideas. The patient is not nervous/anxious and is not hyperactive. Physical Examination: Vital Signs: BP 122/78 (BP Location: Right arm, BP Position: Sitting) Pulse 92 Ht 1.575 m (5' 2 ) Wt 55.2 kg (121 lb 9.6 oz) SpO2 97% BMI 22.24 kg/m Smoking Status Former Smoker Physical Exam Constitutional: General: She is awake. Appearance: Normal appearance. Cardiovascular: Rate and Rhythm: Normal rate. Pulses: Normal pulses. No decreased pulses. Pulmonary: Effort: Pulmonary effort is normal. No accessory muscle usage, prolonged expiration or respiratory distress. Abdominal: Tenderness: There is no right CVA tenderness or left CVA tenderness. Musculoskeletal: Right lower leg: No edema. Left lower leg: No edema. Skin: General: Skin is warm and dry. Capillary Refill: Capillary refill takes less than 2 seconds. Neurological: Mental Status: She is alert and oriented to person, place, and time. Sensory: Sensation is intact. Motor: Motor function is intact. Coordination: Coordination is intact. Gait: Gait is intact. Psychiatric: Mood and Affect: Mood normal. Mood is not anxious or depressed. Behavior: Behavior is cooperative. Thought Content: Thought content normal. Thought content is not paranoid or delusional. Thought content does not include homicidal or suicidal ideation. Thought content does not include homicidal or suicidal plan. Cognition and Memory: Cognition normal. Laboratory and Additional Data Reviewed: Results for orders placed or performed in visit on 02/08/22 POCT ALERE DRUG SCREEN Result Value Ref Range Marijuana (THC), poct Negative COCAINE (NADIRA), POCT Negative Opiate (OPI), poct Negative Methamphetamine (mAMP/MET), poct Negative Amphetamine (AMP), poct Negative Barbiturates (BAR), poct Negative Methadone (MTD), poct Negative Ecstasy (MDMA), poct Negative Oxycodone (OXY), poct Negative Phencyclidine (PCP), poct Negative Propoxyphene (PPX), poct Negative OXAZEPAM (BZO),POCT Negative Buprenorphine Glucuronide (BUPG),poct Positive Nortripyline (TCA), poct Negative No images are attached to the encounter. Assessment and Plan: Christine Salcido is a 21 y.o. female that presents for follow up. Current management with Subutex 8 mg per day. Does feel that the current dose is appropriate. No se from the meds. Is taking as prescribed. No red flags. No diversion. -UDS as noted. Pos for BUP. Appropriate and compliant. Neg for anything else. -OARRS reviewed. Appropriate and compliant. Post . Breast feeding. Wanting and working on tapering until more stable from post . Tolerating ok. Consoling is with [facility] in [place]. Will cont with them. Compliant and verified per last report. -aware will need to remain active in consoling to be active in the program. Fu in 1 month -MAT Call the office for any questions or concerns. I did have discussion that if any medications are not covered or is not able to get the medications to call the office and let us know so other alternative/arrangements can be made. Christine was seen today for medication management. Diagnoses and all orders for this visit: Opioid dependence in remission - buprenorphine 8 MG sublingual tablet; Place 1 tablet under tongue daily. - POCT ALERE DRUG SCREEN Encounter for long-term opiate analgesic use - buprenorphine 8 MG sublingual tablet; Place 1 tablet under tongue daily. - POCT ALERE DRUG SCREEN TAMICA Zavaleta documented in this encounter [facility] 02-08-2022 History of Present illness Narrative Follow Up Visit Christine Salcido [id number] 2000 02/08/2022 Chief Complaint Patient presents with Medication Management Opioid dependence History of Present Illness: Christine Salcido is a 21 y.o. female presenting for follow up for MAT. Following with [facility]. Was dx with gestational dm. Post baby girl 10/26/21. Currently . She would like to wean down eventually and get off of the MAT management completely. Current management is with Subutex 8 mg daily. Taking as prescribed. Denies any cravings, but will get triggers and start thinking about using but not very often. No SE. Denies reason to have red flags, diversion, or aberrant behaviors. Denies any use of any other illicit substance. Doing well on the current dose. No problems or concerns expressed. Feels that current management is helping. Dose seems appropriate. Feels that she is doing well. Consoling- is compliant and verified per last report. States going to consoling with [facility] in [place]. Attending as set up and directed by the consoling center. Aware the need to remain compliant in consoling while active in the MAT program. Aware to have the consoling center send reports to the office. Bi-polar- chronic. Stable. No med management at this time. History: Past Medical History: Diagnosis Date Anxiety Bipolar 1 disorder Drug abuse in remission GERD (gastroesophageal reflux disease) Gestational diabetes Stomach ulcer Past Surgical History: Procedure Laterality Date COLONOSCOPY DIAGNOSTIC 2010 BRONCHOSCOPY FLEXIBLE DIAGNOSTIC 2010 2017 History reviewed. No pertinent family history. Social History Socioeconomic History Marital status: Single Tobacco Use Smoking status: Former Smoker Years: 7.00 Types: Cigarettes Smokeless tobacco: Never Used Tobacco comment: Pt seldom vapes Vaping Use Vaping Use: Some days Substances: seldom Substance and Sexual Activity Alcohol use: Not Currently Drug use: Not Currently Comment: Prescribed Zubsolv Sexual activity: Not Currently Partners: Male Social History Tobacco Use Smoking Status Former Smoker Years: 7.00 Types: Cigarettes Smokeless Tobacco Never Used Tobacco Comment Pt seldom vapes Social History Substance and Sexual Activity Alcohol Use Not Currently Social History Substance and Sexual Activity Drug Use Not Currently Comment: Prescribed Zubsolv Allergies: Patient has no known allergies. Home Medications: Current Outpatient Medications: buprenorphine 8 MG sublingual tablet, Place 1 tablet under tongue daily., Disp: 30 tablet, Rfl: 0 ketoconazole 2 % Shampoo shampoo, Apply 1 Application topically 3 times weekly. Apply topically to wet hair 3-4 times a week, Disp: 120 mL, Rfl: 0 omeprazole [address] capsule, Take 20 mg by mouth 2 times daily as needed. , Disp: , Rfl: naloxone 4 MG/0.1ML, 1 spray by Nasal route once for 1 dose. [place] into the nose as directed. Call 911. If no response in 2 minutes use a new nasal spray in other nostril. Repeat until help arrives., Disp: 1 Each, Rfl: 0 ROS: Review of Systems Constitutional: Positive for fatigue. Negative for activity change, appetite change, diaphoresis and fever. Body aches HENT: Positive for sore throat. Respiratory: Negative for cough, chest tightness, shortness of breath and wheezing. Cardiovascular: Negative for chest pain, palpitations and leg swelling. Gastrointestinal: Negative for abdominal pain, constipation, diarrhea, nausea and vomiting. Skin: Negative for color change, rash and wound. Neurological: Positive for headaches. Negative for dizziness, tremors, facial asymmetry, weakness and light-headedness. Psychiatric/Behavioral: Negative for agitation, sleep disturbance and suicidal ideas. The patient is not nervous/anxious and is not hyperactive. Physical Examination: Vital Signs: BP 104/60 (BP Location: Right arm, BP Position: Sitting) Pulse 84 Ht 1.575 m (5' 2 ) Wt 53.1 kg (117 lb) SpO2 98% BMI 21.40 kg/m Smoking Status Former Smoker Physical Exam Constitutional: General: She is awake. Appearance: Normal appearance. Cardiovascular: Rate and Rhythm: Normal rate. Pulses: Normal pulses. No decreased pulses. Pulmonary: Effort: Pulmonary effort is normal. No accessory muscle usage, prolonged expiration or respiratory distress. Abdominal: Tenderness: There is no right CVA tenderness or left CVA tenderness. Musculoskeletal: Right lower leg: No edema. Left lower leg: No edema. Skin: General: Skin is warm and dry. Capillary Refill: Capillary refill takes less than 2 seconds. Neurological: Mental Status: She is alert and oriented to person, place, and time. Sensory: Sensation is intact. Motor: Motor function is intact. Coordination: Coordination is intact. Gait: Gait is intact. Psychiatric: Mood and Affect: Mood normal. Mood is not anxious or depressed. Behavior: Behavior is cooperative. Thought Content: Thought content normal. Thought content is not paranoid or delusional. Thought content does not include homicidal or suicidal ideation. Thought content does not include homicidal or suicidal plan. Cognition and Memory: Cognition normal. Laboratory and Additional Data Reviewed: Results for orders placed or performed in visit on 01/06/22 POCT ALERE DRUG SCREEN Result Value Ref Range Marijuana (THC), poct Negative COCAINE (NADIRA), POCT Negative Opiate (OPI), poct Negative Methamphetamine (mAMP/MET), poct Negative Amphetamine (AMP), poct Negative Barbiturates (BAR), poct Negative Methadone (MTD), poct Negative Ecstasy (MDMA), poct Negative Oxycodone (OXY), poct Negative Phencyclidine (PCP), poct Negative Propoxyphene (PPX), poct Negative OXAZEPAM (BZO),POCT Negative Buprenorphine Glucuronide (BUPG),poct Positive Nortripyline (TCA), poct Negative No images are attached to the encounter. Assessment and Plan: Christine Salcido is a 21 y.o. female that presents for follow up. Current management with Subutex 8 mg per day. Does feel that the current dose is appropriate. No se from the meds. Is taking as prescribed. No red flags. No diversion. -UDS as noted. Pos for BUP. Appropriate and compliant. Neg for anything else. -OARRS reviewed. Appropriate and compliant. Post . Breast feeding. Wanting and working on tapering until more stable from post . Tolerating ok. Consoling is with [facility] in [place]. Will cont with them. Compliant and verified per last report. -aware will need to remain active in consoling to be active in the program. Fu in 1 month -MAT Call the office for any questions or concerns. I did have discussion that if any medications are not covered or is not able to get the medications to call the office and let us know so other alternative/arrangements can be made. Christine was seen today for medication management. Diagnoses and all orders for this visit: Opioid dependence in remission - buprenorphine 8 MG sublingual tablet; Place 1 tablet under tongue daily. - POCT ALERE DRUG SCREEN Encounter for long-term opiate analgesic use - buprenorphine 8 MG sublingual tablet; Place 1 tablet under tongue daily. - POCT ALERE DRUG SCREEN TAMICA Zavaleta documented in this encounter [facility] 01-06-2022 History of Present illness Narrative Follow Up Visit Christine Salcido [id number] 2000 01/06/2022 Chief Complaint Patient presents with Medication Management Opioid dependence History of Present Illness: Christine Salcido is a 21 y.o. female presenting for follow up for MAT. Following with [facility]. Was dx with gestational dm. Post baby girl 10/26/21. Currently . She would like to wean down eventually and get off of the MAT management completely. Current management is with Subutex 8 mg daily. Taking as prescribed. Denies any cravings, but will get triggers and start thinking about using but not very often. No SE. Denies reason to have red flags, diversion, or aberrant behaviors. Denies any use of any other illicit substance. Doing well on the current dose. No problems or concerns expressed. Feels that current management is helping. Dose seems appropriate. Feels that she is doing well. Consoling- is compliant and verified per last report. States going to consoling with [facility] in [place]. Attending as set up and directed by the consoling center. Aware the need to remain compliant in consoling while active in the MAT program. Aware to have the consoling center send reports to the office. Bi-polar- chronic. Stable. No med management at this time. History: Past Medical History: Diagnosis Date Anxiety Bipolar 1 disorder Drug abuse in remission GERD (gastroesophageal reflux disease) Gestational diabetes Stomach ulcer Past Surgical History: Procedure Laterality Date COLONOSCOPY DIAGNOSTIC 2010 BRONCHOSCOPY FLEXIBLE DIAGNOSTIC 2010 2017 History reviewed. No pertinent family history. Social History Socioeconomic History Marital status: Single Tobacco Use Smoking status: Former Smoker Years: 7.00 Types: Cigarettes Smokeless tobacco: Never Used Tobacco comment: Pt seldom vapes Vaping Use Vaping Use: Some days Substances: seldom Substance and Sexual Activity Alcohol use: Not Currently Drug use: Not Currently Comment: Prescribed Zubsolv Sexual activity: Not Currently Partners: Male Social History Tobacco Use Smoking Status Former Smoker Years: 7.00 Types: Cigarettes Smokeless Tobacco Never Used Tobacco Comment Pt seldom vapes Social History Substance and Sexual Activity Alcohol Use Not Currently Social History Substance and Sexual Activity Drug Use Not Currently Comment: Prescribed Zubsolv Allergies: Patient has no known allergies. Home Medications: Current Outpatient Medications: [START ON 01/07/2022] buprenorphine 8 MG sublingual tablet, Place 1 tablet under tongue daily., Disp: 30 tablet, Rfl: 0 ketoconazole 2 % Shampoo shampoo, Apply 1 Application topically 3 times weekly. Apply topically to wet hair 3-4 times a week, Disp: 120 mL, Rfl: 0 omeprazole [address] capsule, Take 20 mg by mouth 2 times daily as needed. , Disp: , Rfl: naloxone 4 MG/0.1ML, 1 spray by Nasal route once for 1 dose. [place] into the nose as directed. Call 911. If no response in 2 minutes use a new nasal spray in other nostril. Repeat until help arrives., Disp: 1 Each, Rfl: 0 ROS: Review of Systems Constitutional: Positive for fatigue. Negative for activity change, appetite change, diaphoresis and fever. Body aches HENT: Positive for sore throat. Respiratory: Negative for cough, chest tightness, shortness of breath and wheezing. Cardiovascular: Negative for chest pain, palpitations and leg swelling. Gastrointestinal: Negative for abdominal pain, constipation, diarrhea, nausea and vomiting. Skin: Negative for color change, rash and wound. Neurological: Positive for headaches. Negative for dizziness, tremors, facial asymmetry, weakness and light-headedness. Psychiatric/Behavioral: Negative for agitation, sleep disturbance and suicidal ideas. The patient is not nervous/anxious and is not hyperactive. Physical Examination: Vital Signs: BP 116/72 (BP Location: Right arm, BP Position: Sitting) Pulse 68 Ht 1.575 m (5' 2 ) Wt 53.1 kg (117 lb) SpO2 99% BMI 21.40 kg/m Smoking Status Former Smoker Physical Exam Constitutional: General: She is awake. Appearance: Normal appearance. Cardiovascular: Rate and Rhythm: Normal rate. Pulses: Normal pulses. No decreased pulses. Pulmonary: Effort: Pulmonary effort is normal. No accessory muscle usage, prolonged expiration or respiratory distress. Abdominal: Tenderness: There is no right CVA tenderness or left CVA tenderness. Musculoskeletal: Right lower leg: No edema. Left lower leg: No edema. Skin: General: Skin is warm and dry. Capillary Refill: Capillary refill takes less than 2 seconds. Neurological: Mental Status: She is alert and oriented to person, place, and time. Sensory: Sensation is intact. Motor: Motor function is intact. Coordination: Coordination is intact. Gait: Gait is intact. Psychiatric: Mood and Affect: Mood normal. Mood is not anxious or depressed. Behavior: Behavior is cooperative. Thought Content: Thought content normal. Thought content is not paranoid or delusional. Thought content does not include homicidal or suicidal ideation. Thought content does not include homicidal or suicidal plan. Cognition and Memory: Cognition normal. Laboratory and Additional Data Reviewed: Results for orders placed or performed in visit on 12/08/21 POCT ALERE DRUG SCREEN Result Value Ref Range Marijuana (THC), poct Negative COCAINE (NADIRA), POCT Negative Opiate (OPI), poct Negative Methamphetamine (mAMP/MET), poct Negative Amphetamine (AMP), poct Negative Barbiturates (BAR), poct Negative Methadone (MTD), poct Negative Ecstasy (MDMA), poct Negative Oxycodone (OXY), poct Negative Phencyclidine (PCP), poct Negative Propoxyphene (PPX), poct Negative OXAZEPAM (BZO),POCT Negative Buprenorphine Glucuronide (BUPG),poct Positive Nortripyline (TCA), poct Negative No images are attached to the encounter. Assessment and Plan: Christine Salcido is a 21 y.o. female that presents for follow up. Current management with Subutex 8 mg per day. Does feel that the current dose is appropriate. No se from the meds. Is taking as prescribed. No red flags. No diversion. -UDS as noted. Pos for BUP. Appropriate and compliant. Neg for anything else. -OARRS reviewed. Appropriate and compliant. Post . Breast feeding. Wanting and working on tapering until more stable from post . Tolerating ok. Cons[facility]ing is with [facility] in [place]. Will cont with them. Compliant and verified per last report. -aware will need to remain active in consoling to be active in the program. Fu in 1 month -MAT Call the office for any questions or concerns. I did have discussion that if any medications are not covered or is not able to get the medications to call the office and let us know so other alternative/arrangements can be made. Christine was seen today for medication management. Diagnoses and all orders for this visit: Opioid dependence in remission - POCT ALERE DRUG SCREEN - buprenorphine 8 MG sublingual tablet; Place 1 tablet under tongue daily. Encounter for long-term opiate analgesic use - POCT ALERE DRUG SCREEN - buprenorphine 8 MG sublingual tablet; Place 1 tablet under tongue daily. TAMICA Zavaleta documented in this encounter [facility] 12-08-2021 History of Present illness Narrative Follow Up Visit Christine Salcido [id number] 2000 12/08/2021 Chief Complaint Patient presents with Medication Management Opioid dependence in remission History of Present Illness: Christine Salcido is a 21 y.o. female presenting for follow up for MAT. Following with [facility]. Was dx with gestational dm. Post baby girl 10/26/21. Currently . She would like to wean down eventually and get off of the MAT management completely. Current management is with Subutex 8 mg daily. Taking as prescribed. Denies any cravings, but will get triggers and start thinking about using but not very often. No SE. Denies reason to have red flags, diversion, or aberrant behaviors. Denies any use of any other illicit substance. Doing well on the current dose. No problems or concerns expressed. Feels that current management is helping. Dose seems appropriate. Feels that she is doing well. Consoling- is compliant and verified per last report. States going to consoling with [facility] in [place]. Attending as set up and directed by the consoling center. Aware the need to remain compliant in consoling while active in the MAT program. Aware to have the consoling center send reports to the office. Bi-polar- chronic. Stable. No med management at this time. History: Past Medical History: Diagnosis Date Anxiety Bipolar 1 disorder Drug abuse in remission GERD (gastroesophageal reflux disease) Gestational diabetes Stomach ulcer Past Surgical History: Procedure Laterality Date COLONOSCOPY DIAGNOSTIC 2010 BRONCHOSCOPY FLEXIBLE DIAGNOSTIC 2010 2017 No family history on file. Social History Socioeconomic History Marital status: Single Tobacco Use Smoking status: Former Smoker Years: 7.00 Types: Cigarettes Smokeless tobacco: Never Used Tobacco comment: Pt seldom vapes Vaping Use Vaping Use: Some days Substances: seldom Substance and Sexual Activity Alcohol use: Not Currently Drug use: Not Currently Comment: Prescribed Zubsolv Sexual activity: Not Currently Partners: Male Social History Tobacco Use Smoking Status Former Smoker Years: 7.00 Types: Cigarettes Smokeless Tobacco Never Used Tobacco Comment Pt seldom vapes Social History Substance and Sexual Activity Alcohol Use Not Currently Social History Substance and Sexual Activity Drug Use Not Currently Comment: Prescribed Zubsolv Allergies: Patient has no known allergies. Home Medications: Current Outpatient Medications: buprenorphine 8 MG sublingual tablet, Place 1 tablet under tongue daily., Disp: 30 tablet, Rfl: 0 ketoconazole 2 % Shampoo shampoo, Apply 1 Application topically 3 times weekly. Apply topically to wet hair 3-4 times a week, Disp: 120 mL, Rfl: [address] omepraz[address] capsule, Take 20 mg by mouth 2 times daily as needed. , Disp: , Rfl: naloxone 4 MG/0.1ML, 1 spray by Nasal route once for 1 dose. [place] into the nose as directed. Call 911. If no response in 2 minutes use a new nasal spray in other nostril. Repeat until help arrives., Disp: 1 Each, Rfl: 0 ROS: Review of Systems Constitutional: Positive for fatigue. Negative for activity change, appetite change, diaphoresis and fever. Body aches HENT: Positive for sore throat. Respiratory: Negative for cough, chest tightness, shortness of breath and wheezing. Cardiovascular: Negative for chest pain, palpitations and leg swelling. Gastrointestinal: Negative for abdominal pain, constipation, diarrhea, nausea and vomiting. Skin: Negative for color change, rash and wound. Neurological: Positive for headaches. Negative for dizziness, tremors, facial asymmetry, weakness and light-headedness. Psychiatric/Behavioral: Negative for agitation, sleep disturbance and suicidal ideas. The patient is not nervous/anxious and is not hyperactive. Physical Examination: Vital Signs: BP 128/82 (BP Location: Left arm, BP Position: Sitting) Pulse 66 Temp 98.2 F (36.8 C) (Temporal) Ht 1.575 m (5' 2 ) Wt 52.4 kg (115 lb 9.6 oz) SpO2 99% BMI 21.14 kg/m Smoking Status Former Smoker Physical Exam Constitutional: General: She is awake. Appearance: Normal appearance. Cardiovascular: Rate and Rhythm: Normal rate. Pulses: Normal pulses. No decreased pulses. Pulmonary: Effort: Pulmonary effort is normal. No accessory muscle usage, prolonged expiration or respiratory distress. Abdominal: Tenderness: There is no right CVA tenderness or left CVA tenderness. Musculoskeletal: Right lower leg: No edema. Left lower leg: No edema. Skin: General: Skin is warm and dry. Capillary Refill: Capillary refill takes less than 2 seconds. Neurological: Mental Status: She is alert and oriented to person, place, and time. Sensory: Sensation is intact. Motor: Motor function is intact. Coordination: Coordination is intact. Gait: Gait is intact. Psychiatric: Mood and Affect: Mood normal. Mood is not anxious or depressed. Behavior: Behavior is cooperative. Thought Content: Thought content normal. Thought content is not paranoid or delusional. Thought content does not include homicidal or suicidal ideation. Thought content does not include homicidal or suicidal plan. Cognition and Memory: Cognition normal. Laboratory and Additional Data Reviewed: Results for orders placed or performed in visit on 11/10/21 [facility] DRUG SCREEN Result Value Ref Range Marijuana (THC), poct Negative COCAINE (NADIRA), POCT Negative Opiate (OPI), poct Negative Methamphetamine (mAMP/MET), poct Negative Amphetamine (AMP), poct Negative Barbiturates (BAR), poct Negative Methadone (MTD), poct Negative Ecstasy (MDMA), poct Negative Oxycodone (OXY), poct Negative Phencyclidine (PCP), poct Negative Propoxyphene (PPX), poct Negative OXAZEPAM (BZO),POCT Negative Buprenorphine Glucuronide (BUPG),poct Positive Nortripyline (TCA), poct Negative No images are attached to the encounter. Assessment and Plan: Christine Salcido is a 21 y.o. female that presents for follow up. Current management with Subutex 8 mg per day. Does feel that the current dose is appropriate. No se from the meds. Is taking as prescribed. No red flags. No diversion. -UDS as noted. Pos for BUP. Appropriate and compliant. Neg for anything else. -OARRS reviewed. Appropriate and compliant. Post . Breast feeding. Wanting and working on tapering until more stable from post . Tolerating ok. Consoling is with [facility] in [place]. Will cont with them. Compliant and verified per last report. -aware will need to remain active in consoling to be active in the program. Fu in 1 month -MAT Call the office for any questions or concerns. I did have discussion that if any medications are not covered or is not able to get the medications to call the office and let us know so other alternative/arrangements can be made. Christine was seen today for medication management. Diagnoses and all orders for this visit: Opioid dependence in remission - [facility]UG SCREEN - buprenorphine 8 MG sublingual tablet; Place 1 tablet under tongue daily. Encounter for long-term opiate analgesic use - [facility] DRUG SCREEN - buprenorphine 8 MG sublingual tablet; Place 1 tablet under tongue daily. TAMICA Zavaleta documented in this encounter [facility] 11-10-2021 History of Present illness Narrative Follow Up Visit Christine Salcido [id number] 2000 11/10/2021 Chief Complaint Patient presents with Medication Management Opioid dependence. 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 History of Present Illness: Christine Salcido is a 21 y.o. female presenting for follow up for MAT. Following with [facility]. Was dx with gestational dm. Post baby girl 10/26/21. Currently . She would like to wean down eventually and get off of the MAT management completely. Current management is with Subutex 8 mg daily. Taking as prescribed. Denies any cravings, but will get triggers and start thinking about using but not very often. No SE. Denies reason to have red flags, diversion, or aberrant behaviors. Denies any use of any other illicit substance. Doing well on the current dose. No problems or concerns expressed. Feels that current management is helping. Dose seems appropriate. Feels that she is doing well. Consoling- is compliant and verified per last report. States going to consoling with [facility] in [place]. Attending as set up and directed by the consoling center. Aware the need to remain compliant in consoling while active in the MAT program. Aware to have the consoling center send reports to the office. Bi-polar- chronic. Stable. No med management at this time. History: Past Medical History: Diagnosis Date Anxiety Bipolar 1 disorder Drug abuse in remission GERD (gastroesophageal reflux disease) Gestational diabetes Stomach ulcer Past Surgical History: Procedure Laterality Date COLONOSCOPY DIAGNOSTIC 2010 BRONCHOSCOPY FLEXIBLE DIAGNOSTIC 2010 2017 History reviewed. No pertinent family history. Social History Socioeconomic History Marital status: Single Tobacco Use Smoking status: Former Smoker Years: 7.00 Types: Cigarettes Smokeless tobacco: Never Used Tobacco comment: Pt seldom vapes Vaping Use Vaping Use: Some days Substances: seldom Substance and Sexual Activity Alcohol use: Not Currently Drug use: Not Currently Comment: Prescribed Zubsolv Sexual activity: Not Currently Partners: Male Social History Tobacco Use Smoking Status Former Smoker Years: 7.00 Types: Cigarettes Smokeless Tobacco Never Used Tobacco Comment Pt seldom vapes Social History Substance and Sexual Activity Alcohol Use Not Currently Social History Substance and Sexual Activity Drug Use Not Currently Comment: Prescribed Zubsolv Allergies: Patient has no known allergies. Home Medications: Current Outpatient Medications: [START ON 11/12/2021] buprenorphine 8 MG sublingual tablet, Place 1 tablet under tongue daily., Disp: 30 tablet, Rfl: 0 omeprazole [address] capsule, Take 20 mg by mouth 2 times daily as needed. , Disp: , Rfl: ketoconazole 2 % Shampoo shampoo, Apply 1 Application topically 3 times weekly. Apply topically to wet hair 3-4 times a week, Disp: 120 mL, Rfl: 0 naloxone 4 MG/0.1ML, 1 spray by Nasal route once for 1 dose. [place] into the nose as directed. Call 911. If no response in 2 minutes use a new nasal spray in other nostril. Repeat until help arrives., Disp: 1 Each, Rfl: 0 ROS: Review of Systems Constitutional: Positive for fatigue. Negative for activity change, appetite change, diaphoresis and fever. Body aches HENT: Positive for sore throat. Respiratory: Negative for cough, chest tightness, shortness of breath and wheezing. Cardiovascular: Negative for chest pain, palpitations and leg swelling. Gastrointestinal: Negative for abdominal pain, constipation, diarrhea, nausea and vomiting. Skin: Negative for color change, rash and wound. Neurological: Positive for headaches. Negative for dizziness, tremors, facial asymmetry, weakness and light-headedness. Psychiatric/Behavioral: Negative for agitation, sleep disturbance and suicidal ideas. The patient is not nervous/anxious and is not hyperactive. Physical Examination: Vital Signs: BP 118/74 (BP Location: Right arm, BP Position: Sitting) Pulse 107 Ht 1.575 m (5' 2 ) Wt 51.7 kg (114 lb) SpO2 99% BMI 20.85 kg/m Smoking Status Former Smoker Physical Exam Constitutional: General: She is awake. Appearance: Normal appearance. Cardiovascular: Rate and Rhythm: Normal rate. Pulses: Normal pulses. No decreased pulses. Pulmonary: Effort: Pulmonary effort is normal. No accessory muscle usage, prolonged expiration or respiratory distress. Abdominal: Tenderness: There is no right CVA tenderness or left CVA tenderness. Musculoskeletal: Right lower leg: No edema. Left lower leg: No edema. Skin: General: Skin is warm and dry. Capillary Refill: Capillary refill takes less than 2 seconds. Neurological: Mental Status: She is alert and oriented to person, place, and time. Sensory: Sensation is intact. Motor: Motor function is intact. Coordination: Coordination is intact. Gait: Gait is intact. Psychiatric: Mood and Affect: Mood normal. Mood is not anxious or depressed. Behavior: Behavior is cooperative. Thought Content: Thought content normal. Thought content is not paranoid or delusional. Thought content does not include homicidal or suicidal ideation. Thought content does not include homicidal or suicidal plan. Cognition and Memory: Cognition normal. Laboratory and Additional Data Reviewed: Results for orders placed or performed in visit on 10/13/21 POCT [facility] DRUG SCREEN Result Value Ref Range Marijuana (THC), poct Negative COCAINE (NADIRA), POCT Negative Opiate (OPI), poct Negative Methamphetamine (mAMP/MET), poct Negative Amphetamine (AMP), poct Negative Barbiturates (BAR), poct Negative Methadone (MTD), poct Negative Ecstasy (MDMA), poct Negative Oxycodone (OXY), poct Negative Phencyclidine (PCP), poct Negative Propoxyphene (PPX), poct Negative OXAZEPAM (BZO),POCT Negative Buprenorphine Glucuronide (BUPG),poct Positive Nortripyline (TCA), poct Negative No images are attached to the encounter. Assessment and Plan: Christine Salcido is a 21 y.o. female that presents for follow up. Current management with Subutex 8 mg per day. Does feel that the current dose is appropriate. No se from the meds. Is taking as prescribed. No red flags. No diversion. -UDS as noted. Pos for BUP. Appropriate and compliant. Neg for anything else. -OARRS reviewed. Appropriate and compliant. Post . Breast feeding. Wanting and working on tapering until more stable from post . Tolerating ok. Consoling is with [facility] in [place]. Will cont with them. Compliant and verified per last report. -aware will need to remain active in consoling to be active in the program. Fu in 1 month -MAT Call the office for any questions or concerns. I did have discussion that if any medications are not covered or is not able to get the medications to call the office and let us know so other alternative/arrangements can be made. Christine was seen today for medication management. Diagnoses and all orders for this visit: Opioid dependence in remission - [facility] DRUG SCREEN - buprenorphine 8 MG sublingual tablet; Place 1 tablet under tongue daily. Encounter for long-term opiate analgesic use - [facility] DRUG SCREEN - buprenorphine 8 MG sublingual tablet; Place 1 tablet under tongue daily. (infant) TAMICA Zavaleta documented in this encounter [facility] 10-15-2021 Hospital Discharge instructions Estephanie Coates RN - 10/15/[address] Vasquez Hassan [facility] Dr. Ida Sparrow [facility] [address] or [place] ACTIVITY LIMITATIONS: ( X)Up and about as desired and tolerated ( )Up to bathroom only ( )Lay on either side ( )Avoid heavy lifting or exercise ( )No sex ( )No nipple stimulation ( )Complet bedrest ( )Avoid using stairs ( X )Increase fluids DRINK AT LEAST eight-8oz. Glasses of water daily. Call your Doctor if: ( X)Contractions are every 5 minutes apart (from start of one to the start of the next contraction) lasting 60 seconds for at least 1 hour, strong enough you can not walk or talk through the contraction and regular. (X )Bag of water breaks (X)Vaginal bleeding ( X )Unusual pain occurs ( X )Decreased movement ( ) labor: If you have 4 contractions in an hour Keep your scheduled follow up appointment. IN CASE OF EMERGENCY CONTACT LABOR AND DELIVERY . documented in this encounter [employer] Phone: 10-05-2021 Hospital Discharge instructions Minnie Otto, RN - 10/05/[address] Vasquez Hassan CN Dr. Ida Sparrow CNM [address] [facility] [address] [place] [address] Ida Mojica CNM [address] [facility] [address] [phone] Nely Roberto, MSN, [employer], CNM [facility] [address] [facility] [address] [address] [facility] [address] Jody Angel CNM [address] [place] [address] [place] [address] Paris Courtney CNM [address] [place] [address] [phone] ACTIVITY LIMITATIONS: ( x )Up and about as desired and tolerated ( )Up to bathroom only ( )Lay on either side ( )Avoid heavy lifting or exercise ( )No sex ( )No nipple stimulation ( )Complet bedrest ( )Avoid using stairs (x )Increase fluids DRINK AT LEAST eight-8oz. Glasses of water daily. Call your Doctor if: (x )Contractions are every 5 minutes apart (from start of one to the start of the next contraction) lasting 60 seconds for at least 1 hour, strong enough you can not walk or talk through the contraction and regular. (x )Bag of water breaks ( x )Vaginal bleeding ( x )Unusual pain occurs (x )Decreased movement ( ) labor: If you have 4 contractions in an hour Keep your scheduled follow up appointment. Or call for a follow up on . IN CASE OF EMERGENCY CONTACT LABOR AND DELIVERY . documented in this encounter [employer] Phone: 09-16-2021 History of Present illness Narrative Christine Salcido was scheduled for Diabetes Education on 09/16/21 and did not show for her appointment. Message was left to reschedule and I have not received a follow up call in response. I am happy to see Christine for Diabetes Education. Thank you, Sarah Delaney RN [facility] [phone] documented in this encounter [employer] Phone: 09-16-2021 History of Present illness Narrative This is a notice of failure to show for a medical nutrition therapy appointment. Christine Salcido had an appointment with the dietitian this date, but did not show, cancel or reschedule before the appointment time. Placed call to Pt, but voice mail box was full, unable to leave a message. If an appointment is still desired, please contact centralized scheduling . Thank you for the referral. documented in this encounter [employer] Phone: 09-14-2021 History of Present illness Narrative Follow Up Visit Christine Salcido [id number] 2000 09/14/2021 Chief Complaint Patient presents with Medication Management opioid dependence Other FYI: Pt states since last OV she was dx with gestational diabetes and was told hemoglobin is super low History of Present Illness: Christine Salcido is a 21 y.o. female presenting for follow up for MAT. Following with [employer] [facility]. 8 months preg. Was dx with gestational dm Discussed transitioning to Subutex last visit. She would like to wean down and get off of the MAT management completely. Current management is with Subutex 8 mg daily. Taking as prescribed. Denies any cravings, but will get triggers and start thinking about using but not very often. No SE. Denies reason to have red flags, diversion, or aberrant behaviors. Denies any use of any other illicit substance. Doing well on the current dose. No problems or concerns expressed. Feels that current management is helping. Dose seems appropriate. Feels that she is doing well. Tapering and tolerating ok. Mild increase in rodrigues. Asking to stay at current dose for a few more wks dt increase in stress in personal life. Consoling- is compliant and verified per last report. States going to consoling with [facility] in [place]. Attending as set up and directed by the consoling center. Aware the need to remain compliant in consoling while active in the MAT program. Aware to have the consoling center send reports to the office. Bi-polar- chronic. Stable. No med management at this time. History: Past Medical History: Diagnosis Date Anxiety Bipolar 1 disorder Drug abuse in remission GERD (gastroesophageal reflux disease) Gestational diabetes Stomach ulcer Past Surgical History: Procedure Laterality Date COLONOSCOPY DIAGNOSTIC 2010 BRONCHOSCOPY FLEXIBLE DIAGNOSTIC 2010 2017 History reviewed. No pertinent family history. Social History Socioeconomic History Marital status: Single Spouse name: Not on file Number of children: Not on file Years of education: Not on file Highest education level: Not on file Occupational History Not on file Tobacco Use Smoking status: Former Smoker Years: 7.00 Types: Cigarettes Smokeless tobacco: Never Used Tobacco comment: Pt seldom vapes Vaping Use Vaping Use: Some days Substances: seldom Substance and Sexual Activity Alcohol use: Not Currently Drug use: Not Currently Comment: Prescribed Zubsolv Sexual activity: Not Currently Partners: Male Other Topics Concern Not on file Social History Narrative Not on file Social Determinants of Health Financial Resource Strain: Not on file Food Insecurity: Not on file Transportation Needs: Not on file Physical Activity: Not on file Stress: Not on file Social Connections: Not on file Intimate Partner Violence: Not on file Housing Stability: Not on file Social History Tobacco Use Smoking Status Former Smoker Years: 7.00 Types: Cigarettes Smokeless Tobacco Never Used Tobacco Comment Pt seldom vapes Social History Substance and Sexual Activity Alcohol Use Not Currently Social History Substance and Sexual Activity Drug Use Not Currently Comment: Prescribed Zubsolv Allergies: Patient has no known allergies. Home Medications: Current Outpatient Medications: buprenorphine 8 MG sublingual tablet, Place 1 tablet under tongue daily., Disp: 30 tablet, Rfl: 0 omeprazole [address] capsule, Take 20 mg by mouth 2 times daily as needed. , Disp: , Rfl: ketoconazole 2 % Shampoo shampoo, Apply 1 Application topically 3 times weekly. Apply topically to wet hair 3-4 times a week, Disp: 120 mL, Rfl: 0 naloxone 4 MG/0.1ML, 1 spray by Nasal route once for 1 dose., Disp: 1 Bottle, Rfl: 0 ROS: Review of Systems Constitutional: Positive for fatigue. Negative for activity change, appetite change, diaphoresis and fever. Body aches HENT: Positive for congestion, rhinorrhea and sinus pressure. Respiratory: Negative for cough, chest tightness, shortness of breath and wheezing. Cardiovascular: Negative for chest pain, palpitations and leg swelling. Gastrointestinal: Negative for abdominal pain, constipation, diarrhea, nausea and vomiting. Skin: Negative for color change, rash and wound. Neurological: Positive for headaches. Negative for dizziness, tremors, facial asymmetry, weakness and light-headedness. Psychiatric/Behavioral: Negative for agitation, sleep disturbance and suicidal ideas. The patient is not nervous/anxious and is not hyperactive. Physical Examination: Vital Signs: BP 118/70 (BP Location: Right arm, BP Position: Sitting) Pulse 97 Temp 96.9 F (36.1 C) (Temporal) Ht 1.575 m (5' 2 ) Wt 56.7 kg (125 lb) SpO2 97% BMI 22.86 kg/m Smoking Status Former Smoker Physical Exam Constitutional: General: She is awake. Appearance: Normal appearance. Cardiovascular: Rate and Rhythm: Normal rate. Pulses: Normal pulses. No decreased pulses. Pulmonary: Effort: Pulmonary effort is normal. No accessory muscle usage, prolonged expiration or respiratory distress. Abdominal: Tenderness: There is no right CVA tenderness or left CVA tenderness. Musculoskeletal: Right lower leg: No edema. Left lower leg: No edema. Skin: General: Skin is warm and dry. Capillary Refill: Capillary refill takes less than 2 seconds. Neurological: Mental Status: She is alert and oriented to person, place, and time. Sensory: Sensation is intact. Motor: Motor function is intact. Coordination: Coordination is intact. Gait: Gait is intact. Psychiatric: Mood and Affect: Mood normal. Mood is not anxious or depressed. Behavior: Behavior is cooperative. Thought Content: Thought content normal. Thought content is not paranoid or delusional. Thought content does not include homicidal or suicidal ideation. Thought content does not include homicidal or suicidal plan. Cognition and Memory: Cognition normal. Laboratory and Additional Data Reviewed: Results for orders placed or performed in visit on 08/17/21 [facility]CT [facility] DRUG SCREEN Result Value Ref Range Marijuana (THC), poct Negative COCAINE (NADIRA), POCT Negative Opiate (OPI), poct Negative Methamphetamine (mAMP/MET), poct Negative Amphetamine (AMP), poct Negative Barbiturates (BAR), poct Negative Methadone (MTD), poct Negative Ecstasy (MDMA), poct Negative Oxycodone (OXY), poct Negative Phencyclidine (PCP), poct Negative Propoxyphene (PPX), poct Negative OXAZEPAM (BZO),POCT Negative Buprenorphine Glucuronide (BUPG),poct Positive Nortripyline (TCA), poct Negative No images are attached to the encounter. Assessment and Plan: Christine Salcido is a 21 y.o. female that presents for follow up. Current management with Subutex 8 mg per day. Does feel that the current dose is appropriate. No se from the meds. Is taking as prescribed. No red flags. No diversion. -UDS as noted. Pos for BUP. Appropriate and compliant. Neg for anything else. -OARRS reviewed. Appropriate and compliant. . Wanting and working on tapering. Tolerating ok. Getting adjusted to dose. Will cont Subutex 8 mg per day for 2 more wks. Going through some stressful personal problems. 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 Would like to taper down and come off of management. Consoling is with [facility] in [place]. Will cont with them. Compliant and verified per last report. -aware will need to remain active in consoling to be active in the program. Pos for covid on 08/10. Still having some symptoms but gradually feeling better. Fu in 1 month -MAT Call the office for any questions or concerns. I did have discussion that if any medications are not covered or is not able to get the medications to call the office and let us know so other alternative/arrangements can be made. Christine was seen today for medication management and other. Diagnoses and all orders for this visit: Anxiety Opioid dependence in remission Encounter for long-term opiate analgesic use , unspecified gestational age TAMICA Zavaleta documented in this encounter [facility] 06-16-2021 History of Present illness Narrative Follow Up Visit Christine Salcido [id number] 2000 06/16/2021 Chief Complaint Patient presents with Medication Management opioid dependence in remission History of Present Illness: Christine Salcido is a 21 y.o. female presenting for follow up for MAT. Recently pos . Following with [facility]. Has her 20 wk scan tomorrow. Discussed transitioning to Subutex last visit. She would like to wean down and get off of the MAT management completely. Current management is with Subutex 8 mg daily. Taking as prescribed. Denies any cravings, but will get triggers and start thinking about using but not very often. No SE. Denies reason to have red flags, diversion, or aberrant behaviors. Denies any use of any other illicit substance. Doing well on the current dose. No problems or concerns expressed. Feels that current management is helping. Dose seems appropriate. Feels that she is doing well. Tapering and tolerating ok. Mild increase in rodrigues. Asking to stay at current dose for a few more wks dt increase in stress in personal life. Consoling- is compliant and verified per last report. States going to consoling with [facility] in [place]. Attending as set up and directed by the consoling center. Aware the need to remain compliant in consoling while active in the MAT program. Aware to have the consoling center send reports to the office. Bi-polar- chronic. Stable. No med management at this time. History: Past Medical History: Diagnosis Date Anxiety Bipolar 1 disorder Drug abuse in remission GERD (gastroesophageal reflux disease) Stomach ulcer Past Surgical History: Procedure Laterality Date COLONOSCOPY DIAGNOSTIC 2010 BRONCHOSCOPY FLEXIBLE DIAGNOSTIC 2010 2017 History reviewed. No pertinent family history. Social History Socioeconomic History Marital status: Single Spouse name: Not on file Number of children: Not on file Years of education: Not on file Highest education level: Not on file Occupational History Not on file Tobacco Use Smoking status: Current Some Day Smoker Years: 7.00 Types: Cigarettes Smokeless tobacco: Never Used Tobacco comment: <1 pack daily 10/02/20 Substance and Sexual Activity Alcohol use: Not Currently Drug use: Not Currently Comment: Prescribed Zubsolv Sexual activity: Not Currently Partners: Male Other Topics Concern Not on file Social History Narrative Not on file Social Determinants of Health Financial Resource Strain: Not on file Food Insecurity: Not on file Transportation Needs: Not on file Physical Activity: Not on file Stress: Not on file Social Connections: Not on file Intimate Partner Violence: Not on file Housing Stability: Not on file Social History Tobacco Use Smoking Status Current Some Day Smoker Years: 7.00 Types: Cigarettes Smokeless Tobacco Never Used Tobacco Comment <1 pack daily 10/02/20 Social History Substance and Sexual Activity Alcohol Use Not Currently Social History Substance and Sexual Activity Drug Use Not Currently Comment: Prescribed Zubsolv Allergies: Patient has no known allergies. Home Medications: Current Outpatient Medications: ketoconazole 2 % Shampoo shampoo, Apply 1 Application topically 3 times weekly. Apply topically to wet hair 3-4 times a week, Disp: 120 mL, Rfl: [address] omepraz[address] capsule, Take 20 mg by mouth 2 times daily as needed. , Disp: , Rfl: buprenorphine 8 MG sublingual tablet, Place 1 tablet under tongue daily., Disp: 30 tablet, Rfl: 0 naloxone 4 MG/0.1ML, 1 spray by Nasal route once for 1 dose., Disp: 1 Bottle, Rfl: 0 ROS: Review of Systems Constitutional: Negative for activity change, appetite change, diaphoresis, fatigue and fever. Respiratory: Negative for cough, chest tightness, shortness of breath and wheezing. Cardiovascular: Negative for chest pain, palpitations and leg swelling. Gastrointestinal: Negative for abdominal pain, constipation, diarrhea, nausea and vomiting. Skin: Negative for color change, rash and wound. Neurological: Negative for dizziness, tremors, facial asymmetry, weakness, light-headedness and headaches. Psychiatric/Behavioral: Negative for agitation, sleep disturbance and suicidal ideas. The patient is not nervous/anxious and is not hyperactive. Physical Examination: Vital Signs: BP 102/62 (BP Location: Left arm, BP Position: Sitting) Pulse 89 Temp 97.5 F (36.4 C) (Temporal) Ht 1.575 m (5' 2 ) Wt 53 kg (116 lb 12.8 oz) SpO2 99% BMI 21.36 kg/m Smoking Status Current Some Day Smoker Physical Exam Constitutional: General: She is awake. Appearance: Normal appearance. Cardiovascular: Rate and Rhythm: Normal rate. Pulses: Normal pulses. No decreased pulses. Pulmonary: Effort: Pulmonary effort is normal. No accessory muscle usage, prolonged expiration or respiratory distress. Abdominal: Tenderness: There is no right CVA tenderness or left CVA tenderness. Musculoskeletal: Right lower leg: No edema. Left lower leg: No edema. Skin: General: Skin is warm and dry. Capillary Refill: Capillary refill takes less than 2 seconds. Neurological: Mental Status: She is alert and oriented to person, place, and time. Sensory: Sensation is intact. Motor: Motor function is intact. Coordination: Coordination is intact. Gait: Gait is intact. Psychiatric: Mood and Affect: Mood normal. Mood is not anxious or depressed. Behavior: Behavior is cooperative. Thought Content: Thought content normal. Thought content is not paranoid or delusional. Thought content does not include homicidal or suicidal ideation. Thought content does not include homicidal or suicidal plan. Cognition and Memory: Cognition normal. Laboratory and Additional Data Reviewed: Results for orders placed or performed in visit on 05/19/21 POCT ALERE DRUG SCREEN Result Value Ref Range Marijuana (THC), poct Negative COCAINE (NADIRA), POCT Negative Opiate (OPI), poct Negative Methamphetamine (mAMP/MET), poct Negative Amphetamine (AMP), poct Negative Barbiturates (BAR), poct Negative Methadone (MTD), poct Negative Ecstasy (MDMA), poct Negative Oxycodone (OXY), poct Negative Phencyclidine (PCP), poct Negative Propoxyphene (PPX), poct Negative OXAZEPAM (BZO),POCT Negative Buprenorphine Glucuronide (BUPG),poct Positive Nortripyline (TCA), poct Negative No images are attached to the encounter. Assessment and Plan: Christine Salcido is a 21 y.o. female that presents for follow up. Current management with Subutex 8 mg per day. Does feel that the current dose is appropriate. No se from the meds. Is taking as prescribed. No red flags. No diversion. -UDS as noted. Pos for BUP. Appropriate and compliant. Neg for anything else. -OARRS reviewed. Appropriate and compliant. . Wanting and working on tapering. Tolerating ok. Getting adjusted to dose. Will cont Subutex 8 mg per day for 2 more wks. Going through some stressful personal problems. 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 Would like to taper down and come off of management. Consoling is with [facility] in [place]. Will cont with them. Compliant and verified per last report. -aware will need to remain active in consoling to be active in the program. Has 20 wk scan tomorrow. Fu in 1 month -MAT Call the office for any questions or concerns. I did have discussion that if any medications are not covered or is not able to get the medications to call the office and let us know so other alternative/arrangements can be made. Christine was seen today for medication management. Diagnoses and all orders for this visit: Opioid dependence in remission - POCT ALERE DRUG SCREEN - buprenorphine 8 MG sublingual tablet; Place 1 tablet under tongue daily. Encounter for long-term opiate analgesic use - POCT ALERE DRUG SCREEN - buprenorphine 8 MG sublingual tablet; Place 1 tablet under tongue daily. , unspecified gestational age - buprenorphine 8 MG sublingual tablet; Place 1 tablet under tongue daily. Anxiety Bipolar 1 disorder TAMICA Zavaleta documented in this encounter [facility] 03-25-2021 Instructions Martha Lara, DO - 03/25/2021 7:39 PM EDT Images from the original note were not included. Upper Respiratory Infection (Cold): Care Instructions Your Care Instructions An upper respiratory infection, or URI, is an infection of the nose, sinuses, or throat. URIs are spread by coughs, sneezes, and direct contact. The common cold is the most frequent kind of URI. The flu and sinus infections are other kinds of URIs. Almost all URIs are caused by viruses. Antibiotics won't cure them. But you can treat most infections with home care. This may include drinking lots of fluids and taking cgyo-ynz-wtsfxgj pain medicine. You will probably feel better in 4 to 10 days. The doctor has checked you carefully, but problems can develop later. If you notice any problems or new symptoms, get medical treatment right away. Follow-up care is a parker part of your treatment and safety. Be sure to make and go to all appointments, and call your doctor if you are having problems. It's also a good idea to know your test results and keep a list of the medicines you take. How can you care for yourself at home? To prevent dehydration, drink plenty of fluids. Choose water and other clear liquids until you feel better. If you have kidney, heart, or liver disease and have to limit fluids, talk with your doctor before you increase the amount of fluids you drink. Take an shox-fxi-nqxwbkl pain medicine, such as acetaminophen (Tylenol), ibuprofen (Advil, Motrin), or naproxen (Aleve). Read and follow all instructions on the label. Before you use cough and cold medicines, check the label. These medicines may not be safe for young children or for people with certain health problems. Be careful when taking easr-epw-nhokwid cold or flu medicines and Tylenol at the same time. Many of these medicines have acetaminophen, which is Tylenol. Read the labels to make sure that you are not taking more than the recommended dose. Too much acetaminophen (Tylenol) can be harmful. Get plenty of rest. Do not smoke or allow others to smoke around you. If you need help quitting, talk to your doctor about stop-smoking programs and medicines. These can increase your chances of quitting for good. When should you call for help? Call 911 anytime you think you may need emergency care. For example, call if: You have severe trouble breathing. Call your doctor now or seek immediate medical care if: You seem to be getting much sicker. You have new or worse trouble breathing. You have a new or higher fever. You have a new rash. Watch closely for changes in your health, and be sure to contact your doctor if: You have a new symptom, such as a sore throat, an earache, or sinus pain. You cough more deeply or more often, especially if you notice more mucus or a change in the color of your mucus. You do not get better as expected. Where can you learn more? Log into your personal health record on?[email or web address]. om?and enter?K520?in the Education box to learn more about Upper Respiratory Infection (Cold): Care Instructions. Current as of: May 12, 2020 Content Version: 12.9 [employer]. Care instructions adapted under license by your healthcare professional. If you have questions about a medical condition or this instruction, always ask your healthcare professional. [employer] disclaims any warranty or liability for your use of this information. documented in this encounter [facility] 03-25-2021 History of Present illness Narrative PATIENT NAME: Christine Salcido [facility]: [address] [facility] [id number] DATE OF VISIT: 03/25/2021 DATE OF : 2000 SS: [id number] PROVIDER: Martha Lara DO SUBJECTIVE 20 y.o. female to the clinic for complaint of Chief Complaint Patient presents with Headache headache, fatigue, loss of taste, x 3 days, no known exposure HPI: Patient presents with 3 days of symptoms that include headache, fatigue, cough, nasal congestion and slight nausea. Her taste is altered and so she does not truly have loss of taste. Everything tastes the same and is undesirable. She feels that her sense of smell is normal. Of note is that she just found out she is 8 weeks . She denies perceived fever, measured fever, febrile symptoms. Slightly nauseated. No diarrhea. No known exposure to COVID-19 positive individuals. 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 ROS: Constitutional: Denies measured fever or febrile symptoms. Head/Ear/Nose/Throat: Denies ear pain or sore throat. Respiratory: Denies shortness of breath. Gastrointestinal: Denies diarrhea, abdominal pain, vomiting. Musculoskeletal: Admits to generalized myalgia. Neurological: Admits to headache. Denies focal neuro symptoms. Social History Socioeconomic History Marital status: Single Spouse name: Not on file Number of children: Not on file Years of education: Not on file Highest education level: Not on file Occupational History Not on file Tobacco Use Smoking status: Light Tobacco Smoker Types: Cigarettes Smokeless tobacco: Never Used Vaping Use Vaping Use: Never used Substance and Sexual Activity Alcohol use: Not on file Drug use: Not on file Sexual activity: Not on file Other Topics Concern Not on file Social History Narrative Not on file Social Determinants of Health Financial Resource Strain: Difficulty of Paying Living Expenses: Not on file Food Insecurity: Worried About Running Out of Food in the Last Year: Not on file Ran Out of Food in the Last Year: Not on file Transportation Needs: Lack of Transportation (Medical): Not on file Lack of Transportation (Non-Medical): Not on file Physical Activity: Days of Exercise per Week: Not on file Minutes of Exercise per Session: Not on file Stress: Feeling of Stress : Not on file Social Connections: Frequency of Communication with Friends and Family: Not on file Frequency of Social Gatherings with Friends and Family: Not on file Attends Mandaen Services: Not on file Active Member of Clubs or Organizations: Not on file Attends Club or Organization Meetings: Not on file Marital Status: Not on file Housing Stability: Unable to Pay for Housing in the Last Year: Not on file Number of Places Lived in the Last Year: Not on file Unstable Housing in the Last Year: Not on file Past Medical History: Diagnosis Date Depression Substance abuse (HCC) History reviewed. No pertinent family history. Current Outpatient Medications on File Prior to Visit Medication Sig Dispense Refill buprenorphine-nalOXone (Zubsolv) 5.7-1.[address] 1 TABLET UNDER TONGUE DAILY EVERY MORNING. omeprazole (PRILOSEC) 20 MG capsule Take 20 mg by mouth 2 (two) times a day . No current facility-administered medications on file prior to visit. No Known Allergies EXAM: BP 103/66 (BP Location: Left arm, Patient Position: Sitting, BP Cuff Size: Adult) Pulse 65 Temp 99.8 F (37.7 C) Resp 18 Ht 5' 2 Wt 51.7 kg (114 lb) SpO2 99% BMI 20.85 kg/m Constitutional: Vital signs reviewed. Well-appearing. No distress. Psychiatric: Mental status is appropriate. Normal affect. Skin: Warm and dry. No rash noted. Eyes: Conjunctiva clear. No photophobia. HENT: No hoarseness, drooling, trismus or stridor. No tonsil enlargement or exudate. No abscess. Nasal congestion and postnasal drainage are present. Tympanic membranes are normal. No sinus tenderness to percussion. No cervical adenopathy. Thorax/ Respiratory: Respiratory effort non-labored. Speaks in full sentences without dyspnea. Lungs are clear to auscultation. Frequent nonproductive cough noted during exam. Cardiovascular: Good peripheral circulation. H RRR with no murmurs or ectopy. Musculoskeletal: No gross abnormalities. Neck has normal ROM without hesitation or pain response. Neurologic: Alert and appropriately conversant. No ataxia. No dysarthria. No gross facial motor asymmetry. PROCEDURE Procedures RESULTS Recent Results (from the past 168 hour(s)) COVID-19, Molecular Collection Time: 03/25/21 7:23 PM Specimen: Nasopharyngeal; Swab Result Value Ref Range SARS-CoV-2 Not Detected Not Detected Diagnosis: The primary encounter diagnosis was Acute nasopharyngitis. Diagnoses of Exposure to SARS-associated coronavirus and Ageusia were also pertinent to this visit. Plan: 1. Acute nasopharyngitis 2. Exposure to SARS-associated coronavirus COVID-19, Molecular 3. Age[place] COVID-19, Molecular No follow-ups on file. ADDITIONAL CLINICAL COMMENTS / MEDICAL DECISION MAKING / PLAN: Differential diagnosis included upper respiratory infection and COVID-19 infection. I perform nasopharyngeal swab for COVID-19 test. Test result was negative. She may return to work as test is negative and there was no known significant exposure. She understands that she may take Tylenol but cannot take ibuprofen, naproxen, dextromethorphan, or decongestant such as Sudafed due to its potential adverse effects on her . ORDERS PLACED THIS VISIT Orders Placed This Encounter Procedures COVID-19, Molecular MEDICATION LIST AT END OF VISIT Current Outpatient Medications Medication Sig Dispense Refill buprenorphine-nalOXone (Zubsolv) 5.7-1.[address] 1 TABLET UNDER TONGUE DAILY EVERY MORNING. omeprazole (PRILOSEC) 20 MG capsule Take 20 mg by mouth 2 (two) times a day . No current facility-administered medications for this visit. Martha Lara documented in this encounter [facility] 03-03-2021 History of Present illness Narrative Follow Up Visit Christine Salcido [id number] 2000 03/03/2021 Chief Complaint Patient presents with Medication Management opioid dependence; Pt recently found out she was , Pts initial apt with [facility] 03/10 History of Present Illness: Christine Salcido is a 20 y.o. female presenting for follow up for MAT and found out that she was . Took home preg test that was pos. preg test here today is pos. Here to discuss MAT med management. Currently managed with Zubsolv 5.7 and 2.9 mg daily. This was just filled on 02/27/21 for 30 days. No current se. Taking as prescribed. Has a [facility] [facility] [facility] apt on 03/10/[address] Ovalle out of [facility]. History: Past Medical History: Diagnosis Date Anxiety Bipolar 1 disorder Drug abuse in remission GERD (gastroesophageal reflux disease) Stomach ulcer Past Surgical History: Procedure Laterality Date COLONOSCOPY DIAGNOSTIC 2010 BRONCHOSCOPY FLEXIBLE DIAGNOSTIC 2010 2017 History reviewed. No pertinent family history. Social History Socioeconomic History Marital status: Single Spouse name: Not on file Number of children: Not on file Years of education: Not on file Highest education level: Not on file Occupational History Not on file Tobacco Use Smoking status: Current Every Day Smoker Years: 7.00 Types: Cigarettes Smokeless tobacco: Never Used Tobacco comment: <1 pack daily 10/02/20 Substance and Sexual Activity Alcohol use: Not Currently Drug use: Not Currently Comment: Prescribed Zubsolv Sexual activity: Not Currently Partners: Male Other Topics Concern Not on file Social History Narrative Not on file Social Determinants of Health Financial Resource Strain: Difficulty of Paying Living Expenses: Food Insecurity: Worried About Running Out of Food in the Last Year: Ran Out of Food in the Last Year: Transportation Needs: Lack of Transportation (Medical): Lack of Transportation (Non-Medical): Physical Activity: Days of Exercise per Week: Minutes of Exercise per Session: Stress: Feeling of Stress : Social Connections: Frequency of Communication with Friends and Family: Frequency of Social Gatherings with Friends and Family: Attends Mandaen Services: Active Member of Clubs or Organizations: Attends Club or Organization Meetings: Marital Status: Intimate Partner Violence: Fear of Current or Ex-Partner: Emotionally Abused: Physically Abused: Sexually Abused: Social History Tobacco Use Smoking Status Current Every Day Smoker Years: 7.00 Types: Cigarettes Smokeless Tobacco Never Used Tobacco Comment <1 pack daily 10/02/20 Social History Substance and Sexual Activity Alcohol Use Not Currently Social History Substance and Sexual Activity Drug Use Not Currently Comment: Prescribed Zubsolv Allergies: Patient has no known allergies. Home Medications: Current Outpatient Medications: Buprenorphine HCl-Naloxone HCl (Zubsolv) 2.9-0.71 MG Tab SL, Place 1 tablet under tongue every evening at 6 PM., Disp: 30 tablet, Rfl: 0 Buprenorphine HCl-Naloxone HCl (Zubsolv) 5.7-1.4 MG Tab SL, Place 1 tablet under tongue daily every morning., Disp: 30 tablet, Rfl: 0 ketoconazole 2 % Shampoo shampoo, Apply 1 Application topically 3 times weekly. Apply topically to wet hair 3-4 times a week, Disp: 120 mL, Rfl: 0 lamoTRIgine 100 MG tablet, Take 100 mg by mouth daily., Disp: , Rfl: omeprazole [address] capsule, Take 20 mg by mouth 2 times daily., Disp: , Rfl: QUEtiapine 100 MG tablet, Take 1 tablet by mouth at bedtime., Disp: 90 tablet, Rfl: 2 Vitamin D3 125 MCG (5000 UT) per tablet, Take 1 tablet by mouth daily., Disp: 90 tablet, Rfl: 0 naloxone 4 MG/0.1ML, 1 spray by Nasal route once for 1 dose., Disp: 1 Bottle, Rfl: 0 ROS: Review of Systems Constitutional: Negative for activity change, appetite change, diaphoresis, fatigue and fever. Respiratory: Negative for cough, chest tightness, shortness of breath and wheezing. Cardiovascular: Negative for chest pain, palpitations and leg swelling. Gastrointestinal: Negative for abdominal pain, constipation, diarrhea, nausea and vomiting. Skin: Negative for color change, rash and wound. Neurological: Negative for dizziness, tremors, facial asymmetry, weakness, light-headedness and headaches. Psychiatric/Behavioral: Negative for agitation, sleep disturbance and suicidal ideas. The patient is not nervous/anxious and is not hyperactive. Physical Examination: Vital Signs: BP 116/70 (BP Location: Right arm, BP Position: Sitting) Pulse 96 Temp 98.6 F (37 C) (Temporal) Ht 1.575 m (5' 2 ) Wt 52.6 kg (116 lb) SpO2 100% BMI 21.22 kg/m Smoking Status Current Every Day Smoker Physical Exam Constitutional: General: She is awake. Appearance: Normal appearance. Cardiovascular: Rate and Rhythm: Normal rate. Pulses: Normal pulses. No decreased pulses. Pulmonary: Effort: Pulmonary effort is normal. No accessory muscle usage, prolonged expiration or respiratory distress. Abdominal: Tenderness: There is no right CVA tenderness or left CVA tenderness. Musculoskeletal: Right lower leg: No edema. Left lower leg: No edema. Skin: General: Skin is warm and dry. Capillary Refill: Capillary refill takes less than 2 seconds. Neurological: Mental Status: She is alert and oriented to person, place, and time. Sensory: Sensation is intact. Motor: Motor function is intact. Coordination: Coordination is intact. Gait: Gait is intact. Psychiatric: Mood and Affect: Mood normal. Mood is not anxious or depressed. Behavior: Behavior is cooperative. Thought Content: Thought content normal. Thought content is not paranoid or delusional. Thought content does not include homicidal or suicidal ideation. Thought content does not include homicidal or suicidal plan. Cognition and Memory: Cognition normal. Laboratory and Additional Data Reviewed: Results for orders placed or performed in visit on 02/26/21 POCT ALERE DRUG SCREEN Result Value Ref Range Marijuana (THC), poct Negative COCAINE (NADIRA), POCT Negative Opiate (OPI), poct Negative Methamphetamine (mAMP/MET), poct Negative Amphetamine (AMP), poct Negative Barbiturates (BAR), poct Negative Methadone (MTD), poct Negative Ecstasy (MDMA), poct Negative Oxycodone (OXY), poct Negative Phencyclidine (PCP), poct Negative Propoxyphene (PPX), poct Negative OXAZEPAM (BZO),POCT Negative Buprenorphine Glucuronide (BUPG),poct Positive Nortripyline (TCA), poct Negative No images are attached to the encounter. Assessment and Plan: Christine Salcido is a 20 y.o. female that presents for follow up. Pos . Has TU[employer]IF[employer] BU[employer]DER apt end of the month. Managed in MAT program with Zubsolv 5.7 and 2.9 mg daily. Just filled on 02/27/21. -will have her cont and finish out this month of Zubsolv. Will then transition to Subutex at her next apt. She expressed interest in weaning down and will think about this and discuss at her next fu apt in [place]. Keep current management for now. Keep fu already scheduled in [place]. Call the office for any questions or concerns. I did have discussion that if any medications are not covered or is not able to get the medications to call the office and let us know so other alternative/arrangements can be made. Christine was seen today for medication management. Diagnoses and all orders for this visit: Positive test - POCT URINE Opioid dependence in remission - POCT ALERE DRUG SCREEN Encounter for long-term opiate analgesic use - POCT ALERE DRUG SCREEN TAMICA Zavaleta documented in this encounter [facility] 02-26-2021 History of Present illness Narrative Follow Up Visit Christine Salcido [id number] 2000 02/26/2021 Chief Complaint Patient presents with Medication Management opioid dependence History of Present Illness: Christine Salcido is a 20 y.o. female presenting for follow up for MAT. Current management is with Zubsolv 5.7 mg in the AM and 2.9 mg in the evening. Taking as prescribed. Denies any cravings, but will get triggers and start thinking about using but not very often. No SE. Denies reason to have red flags, diversion, or aberrant behaviors. Denies any use of any other illicit substance. Doing well on the current dose. No problems or concerns expressed. Feels that current management is helping. Dose seems appropriate. Feels that she is doing well. Consoling- is compliant and verified per last report. States going to [facility] Attending as set up and directed by the consoling center. Aware the need to remain compliant in consoling while active in the MAT program. Aware to have the consoling center send reports to the office. Bi-polar- chronic. Stable. Taking meds as prescribed. No se from the current management. meds seem to help control the symptoms. -current management with Seroquel 100 mg at bedtime. History: Past Medical History: Diagnosis Date Anxiety Bipolar 1 disorder Drug abuse in remission GERD (gastroesophageal reflux disease) Stomach ulcer Past Surgical History: Procedure Laterality Date COLONOSCOPY DIAGNOSTIC 2010 BRONCHOSCOPY FLEXIBLE DIAGNOSTIC 2010 2017 History reviewed. No pertinent family history. Social History Socioeconomic History Marital status: Single Spouse name: Not on file Number of children: Not on file Years of education: Not on file Highest education level: Not on file Occupational History Not on file Tobacco Use Smoking status: Current Every Day Smoker Years: 7.00 Types: Cigarettes Smokeless tobacco: Never Used Tobacco comment: <1 pack daily 10/02/20 Substance and Sexual Activity Alcohol use: Not Currently Drug use: Not Currently Comment: Prescribed Zubsolv Sexual activity: Not Currently Partners: Male Other Topics Concern Not on file Social History Narrative Not on file Social Determinants of Health Financial Resource Strain: Difficulty of Paying Living Expenses: Food Insecurity: Worried About Running Out of Food in the Last Year: Ran Out of Food in the Last Year: Transportation Needs: Lack of Transportation (Medical): Lack of Transportation (Non-Medical): Physical Activity: Days of Exercise per Week: Minutes of Exercise per Session: Stress: Feeling of Stress : Social Connections: Frequency of Communication with Friends and Family: Frequency of Social Gatherings with Friends and Family: Attends Mandaen Services: Active Member of Clubs or Organizations: Attends Club or Organization Meetings: Marital Status: Intimate Partner Violence: Fear of Current or Ex-Partner: Emotionally Abused: Physically Abused: Sexually Abused: Social History Tobacco Use Smoking Status Current Every Day Smoker Years: 7.00 Types: Cigarettes Smokeless Tobacco Never Used Tobacco Comment <1 pack daily 10/02/20 Social History Substance and Sexual Activity Alcohol Use Not Currently Social History Substance and Sexual Activity Drug Use Not Currently Comment: Prescribed Zubsolv Allergies: Patient has no known allergies. Home Medications: Current Outpatient Medications: ketoconazole 2 % Shampoo shampoo, Apply 1 Application topically 3 times weekly. Apply topically to wet hair 3-4 times a week, Disp: 120 mL, Rfl: 0 lamoTRIgine 100 MG tablet, Take 100 mg by mouth daily., Disp: , Rfl: omeprazole [address] capsule, Take 20 mg by mouth 2 times daily., Disp: , Rfl: QUEtiapine 100 MG tablet, Take 1 tablet by mouth at bedtime., Disp: 90 tablet, Rfl: 2 Vitamin D3 125 MCG (5000 UT) per tablet, Take 1 tablet by mouth daily., Disp: 90 tablet, Rfl: 0 Buprenorphine HCl-Naloxone HCl (Zubsolv) 2.9-0.71 MG Tab SL, Place 1 tablet under tongue every evening at 6 PM., Disp: 30 tablet, Rfl: 0 [START ON 02/28/2021] Buprenorphine HCl-Naloxone HCl (Zubsolv) 5.7-1.4 MG Tab SL, Place 1 tablet under tongue daily every morning., Disp: 30 tablet, Rfl: 0 naloxone 4 MG/0.1ML, 1 spray by Nasal route once for 1 dose., Disp: 1 Bottle, Rfl: 0 ROS: Review of Systems Constitutional: Negative for activity change, appetite change, diaphoresis, fatigue and fever. Respiratory: Negative for cough, chest tightness, shortness of breath and wheezing. Cardiovascular: Negative for chest pain, palpitations and leg swelling. Gastrointestinal: Negative for abdominal pain, constipation, diarrhea, nausea and vomiting. Skin: Negative for color change, rash and wound. Neurological: Negative for dizziness, tremors, facial asymmetry, weakness, light-headedness and headaches. Psychiatric/Behavioral: Negative for agitation, sleep disturbance and suicidal ideas. The patient is not nervous/anxious and is not hyperactive. Physical Examination: Vital Signs: BP 116/70 (BP Location: Right arm, BP Position: Sitting) Pulse 114 Temp 99 F (37.2 C) (Temporal) Ht 1.575 m (5' 2 ) Wt 53.2 kg (117 lb 3.2 oz) SpO2 99% BMI 21.44 kg/m Smoking Status Current Every Day Smoker Physical Exam Constitutional: General: She is awake. Appearance: Normal appearance. Cardiovascular: Rate and Rhythm: Normal rate. Pulses: Normal pulses. No decreased pulses. Pulmonary: Effort: Pulmonary effort is normal. No accessory muscle usage, prolonged expiration or respiratory distress. Abdominal: Tenderness: There is no right CVA tenderness or left CVA tenderness. Musculoskeletal: Right lower leg: No edema. Left lower leg: No edema. Skin: General: Skin is warm and dry. Capillary Refill: Capillary refill takes less than 2 seconds. Neurological: Mental Status: She is alert and oriented to person, place, and time. Sensory: Sensation is intact. Motor: Motor function is intact. Coordination: Coordination is intact. Gait: Gait is intact. Psychiatric: Mood and Affect: Mood normal. Mood is not anxious or depressed. Behavior: Behavior is cooperative. Thought Content: Thought content normal. Thought content is not paranoid or delusional. Thought content does not include homicidal or suicidal ideation. Thought content does not include homicidal or suicidal plan. Cognition and Memory: Cognition normal. Laboratory and Additional Data Reviewed: Results for orders placed or performed in visit on 01/29/21 URINE CULTURE Specimen: URINE - CLEAN CATCH Result Value Ref Range SPECIMEN DESCRIPTION URINE CLEAN CATCH UA Dipstick LEUKOCYTE POSITIVE RESULT-CULT ESCHERICHIA COLI REPORT STATUS 01/31/2021 ORGANISM IDENTIFIED ESCHERICHIA COLI Susceptibility Escherichia coli - KATHI (UG/ML/INTERP)* Ampicillin >=32 RESISTANT Resistant Ampicillin/Sulbactam (c) >=32 RESISTANT Resistant Ceftriaxone <=1 SUSCEPTIBLE Sensitive Cefazolin <=4 SUSCEPTIBLE Sensitive Imipenem <=0.25 SUSCEPTIBLE Sensitive Gentamicin <=1 SUSCEPTIBLE Sensitive Trimethoprim/Sulfamethoxazol >=320 RESISTANT Resistant Amoxicillin/Clavulanic A 4 SUSCEPTIBLE Sensitive Nitrofurantoin <=16 SUSCEPTIBLE Sensitive Piperacillin/Tazobactam(d) <=4 SUSCEPTIBLE Sensitive Levofloxacin <=0.12 SUSCEPTIBLE Sensitive ESBL NEGATIVE Susceptible Ceftazidime <=1 SUSCEPTIBLE Sensitive * ESCHERICHIA COLI POCT ALERE DRUG SCREEN Result Value Ref Range Marijuana (THC), poct Negative COCAINE (NADIRA), POCT Negative Opiate (OPI), poct Negative Methamphetamine (mAMP/MET), poct Negative Amphetamine (AMP), poct Negative Barbiturates (BAR), poct Negative Methadone (MTD), poct Negative Ecstasy (MDMA), poct Negative Oxycodone (OXY), poct Negative Phencyclidine (PCP), poct Negative Propoxyphene (PPX), poct Negative OXAZEPAM (BZO),POCT Negative Buprenorphine Glucuronide (BUPG),poct Positive Nortripyline (TCA), poct Negative POCT URINE DIPSTICK AUTOMATED Result Value Ref Range POCT APPEARANCE, URINE cloudy POCT COLOR, URINE yellow POCT GLUCOSE, URINE negative mg/dL POCT BILIRUBIN, URINE negative POCT KETONES, URINE negative mg/dL POCT SPECIFIC GRAVITY, URINE >=1.030 1.001 - 1.035 POCT BLOOD, URINE trace-lysed POCT PH, URINE 5.5 5 - 7 POCT PROTEIN, URINE trace mg/dL POCT UROBILINOGEN, URINE 0.2 0 - 2 E.U./dL POCT NITRITE, URINE positive POCT LEUKOCYTE, URINE large POCT ESTERASE, URINE not tested POCT BACTERIA, URINE not tested POCT WBC, URINE not tested POCT RBC, URINE not tested POCT AMORPHOUS, URINE not tested POCT CASTS, QUANTITATIVE, URINE not tested POCT SQUAMOUS EPIS, URINE not tested POCT RENAL EPIS, URINE not tested POCT CRYSTALS, URINE not tested POCT URINE COMMENTS, URINE not tested POCT MICROSCOPIC not tested No images are attached to the encounter. Assessment and Plan: Christine Salcido is a 20 y.o. female that presents for follow up. Current management with Zubsolv 5.7 mg in the AM and 2.9 mg in the evening. Does feel that the current dose is appropriate. No se from the meds. Is taking as prescribed. No red flags. No diversion. -UDS as noted. Pos for BUP. Appropriate and compliant. Neg for anything else. -OARRS reviewed. Appropriate and compliant. [facility]ing is with [facility]. Will cont with them. Compliant and verified per last report. -aware will need to remain active in consoling to be active in the program. Needs refill of other meds. Fu in 1 month -MAT Call the office for any questions or concerns. I did have discussion that if any medications are not covered or is not able to get the medications to call the office and let us know so other alternative/arrangements can be made. Christine was seen today for medication management. Diagnoses and all orders for this visit: Opioid dependence in remission - POCT ALERE DRUG SCREEN - Buprenorphine HCl-Naloxone HCl (Zubsolv) 2.9-0.71 MG Tab SL; Place 1 tablet under tongue every evening at 6 PM. - Buprenorphine HCl-Naloxone HCl (Zubsolv) 5.7-1.4 MG Tab SL; Place 1 tablet under tongue daily every morning. Encounter for long-term opiate analgesic use - POCT ALERE DRUG SCREEN - Buprenorphine HCl-Naloxone HCl (Zubsolv) 2.9-0.71 MG Tab SL; Place 1 tablet under tongue every evening at 6 PM. - Buprenorphine HCl-Naloxone HCl (Zubsolv) 5.7-1.4 MG Tab SL; Place 1 tablet under tongue daily every morning. Anxiety TAMICA Zavaleta documented in this encounter [facility] 01-29-2021 History of Present illness Narrative Follow Up Visit Christine Salcido [id number] 2000 01/29/2021 Chief Complaint Patient presents with Medication Management opioid dependence in remission History of Present Illness: Christine Salcido is a 20 y.o. female presenting for follow up for MAT. Current management is with Zubsolv 5.7 mg in the AM and 2.9 mg in the evening. Taking as prescribed. Denies any cravings, but will get triggers and start thinking about using but not very often. No SE. Denies reason to have red flags, diversion, or aberrant behaviors. Denies any use of any other illicit substance. Doing well on the current dose. No problems or concerns expressed. Feels that current management is helping. Dose seems appropriate. Feels that she is doing well. Consoling- is compliant and verified per last report. States going to [facility]. Attending as set up and directed by the consoling center. Aware the need to remain compliant in consoling while active in the MAT program. Aware to have the consoling center send reports to the office. Bi-polar- chronic. Stable. Taking meds as prescribed. No se from the current management. meds seem to help control the symptoms. -current management with Seroquel 100 mg at bedtime. Urine- not sure if she has a UTI. Onset of symptoms was about 2-3 wks ago. Symptoms include feeling of discomfort with urination. After urination does not feel that empties bladder all of the way, urinary frequency, and urgency. Has been using AZO otc and that helps some but if she does not take it then the symptoms return. No fever or chills. No flank pain. No abd pain/n/v/d. Has been drinking plenty of fluids. History: Past Medical History: Diagnosis Date Anxiety Bipolar 1 disorder Drug abuse in remission GERD (gastroesophageal reflux disease) Stomach ulcer Past Surgical History: Procedure Laterality Date COLONOSCOPY DIAGNOSTIC 2010 BRONCHOSCOPY FLEXIBLE DIAGNOSTIC 2010 2017 History reviewed. No pertinent family history. Social History Socioeconomic History Marital status: Single Spouse name: Not on file Number of children: Not on file Years of education: Not on file Highest education level: Not on file Occupational History Not on file Tobacco Use Smoking status: Current Every Day Smoker Years: 7.00 Types: Cigarettes Smokeless tobacco: Never Used Tobacco comment: <1 pack daily 10/02/20 Substance and Sexual Activity Alcohol use: Not Currently Drug use: Not Currently Comment: Prescribed Zubsolv Sexual activity: Not Currently Partners: Male Other Topics Concern Not on file Social History Narrative Not on file Social Determinants of Health Financial Resource Strain: Difficulty of Paying Living Expenses: Food Insecurity: Worried About Running Out of Food in the Last Year: Ran Out of Food in the Last Year: Transportation Needs: Lack of Transportation (Medical): Lack of Transportation (Non-Medical): Physical Activity: Days of Exercise per Week: Minutes of Exercise per Session: Stress: Feeling of Stress : Social Connections: Frequency of Communication with Friends and Family: Frequency of Social Gatherings with Friends and Family: Attends Mandaen Services: Active Member of Clubs or Organizations: Attends Club or Organization Meetings: Marital Status: Intimate Partner Violence: Fear of Current or Ex-Partner: Emotionally Abused: Physically Abused: Sexually Abused: Social History Tobacco Use Smoking Status Current Every Day Smoker Years: 7.00 Types: Cigarettes Smokeless Tobacco Never Used Tobacco Comment <1 pack daily 10/02/20 Social History Substance and Sexual Activity Alcohol Use Not Currently Social History Substance and Sexual Activity Drug Use Not Currently Comment: Prescribed Zubsolv Allergies: Patient has no known allergies. Home Medications: Current Outpatient Medications: ketoconazole 2 % Shampoo shampoo, Apply 1 Application topically 3 times weekly. Apply topically to wet hair 3-4 times a week, Disp: 120 mL, Rfl: 0 lamoTRIgine 100 MG tablet, Take 100 mg by mouth daily., Disp: , Rfl: omeprazole [address] capsule, Take 20 mg by mouth 2 times daily., Disp: , Rfl: QUEtiapine 100 MG tablet, Take 1 tablet by mouth at bedtime., Disp: 90 tablet, Rfl: 2 Vitamin D3 125 MCG (5000 UT) per tablet, Take 1 tablet by mouth daily., Disp: 90 tablet, Rfl: 0 Buprenorphine HCl-Naloxone HCl (Zubsolv) 2.9-0.71 MG Tab SL, Place 1 tablet under tongue every evening at 6 PM., Disp: 30 tablet, Rfl: 0 Buprenorphine HCl-Naloxone HCl (Zubsolv) 5.7-1.4 MG Tab SL, Place 1 tablet under tongue daily every morning., Disp: 30 tablet, Rfl: 0 naloxone 4 MG/0.1ML, 1 spray by Nasal route once for 1 dose., Disp: 1 Bottle, Rfl: 0 nitrofurantoin, macrocrystal-monohydrate, 100 MG capsule, Take 1 capsule by mouth 2 times daily for 10 days. Take w/ food/milk, Disp: 20 capsule, Rfl: 0 ROS: Review of Systems Constitutional: Negative for activity change, appetite change, diaphoresis, fatigue and fever. Respiratory: Negative for cough, chest tightness, shortness of breath and wheezing. Cardiovascular: Negative for chest pain, palpitations and leg swelling. Gastrointestinal: Negative for abdominal pain, constipation, diarrhea, nausea and vomiting. Genitourinary: Positive for dysuria, frequency and urgency. Negative for flank pain. Skin: Negative for color change, rash and wound. Neurological: Negative for dizziness, tremors, facial asymmetry, weakness, light-headedness and headaches. Psychiatric/Behavioral: Negative for agitation, sleep disturbance and suicidal ideas. The patient is not nervous/anxious and is not hyperactive. Physical Examination: Vital Signs: BP 114/68 (BP Location: Left arm, BP Position: Sitting) Pulse 77 Temp 98.8 F (37.1 C) (Temporal) Ht 1.575 m (5' 2 ) Wt 52.9 kg (116 lb 9.6 oz) SpO2 96% BMI 21.33 kg/m Smoking Status Current Every Day Smoker Physical Exam Constitutional: General: She is awake. Appearance: Normal appearance. Cardiovascular: Rate and Rhythm: Normal rate. Pulses: Normal pulses. No decreased pulses. Pulmonary: Effort: Pulmonary effort is normal. No accessory muscle usage, prolonged expiration or respiratory distress. Abdominal: Tenderness: There is no right CVA tenderness or left CVA tenderness. Musculoskeletal: Right lower leg: No edema. Left lower leg: No edema. Skin: General: Skin is warm and dry. Capillary Refill: Capillary refill takes less than 2 seconds. Neurological: Mental Status: She is alert and oriented to person, place, and time. Sensory: Sensation is intact. Motor: Motor function is intact. Coordination: Coordination is intact. Gait: Gait is intact. Psychiatric: Mood and Affect: Mood normal. Mood is not anxious or depressed. Behavior: Behavior is cooperative. Thought Content: Thought content normal. Thought content is not paranoid or delusional. Thought content does not include homicidal or suicidal ideation. Thought content does not include homicidal or suicidal plan. Cognition and Memory: Cognition normal. Laboratory and Additional Data Reviewed: Results for orders placed or performed in visit on 01/01/21 POCT ALERE DRUG SCREEN Result Value Ref Range Marijuana (THC), poct Negative COCAINE (NADIRA), POCT Negative Opiate (OPI), poct Negative Methamphetamine (mAMP/MET), poct Negative Amphetamine (AMP), poct Negative Barbiturates (BAR), poct Negative Methadone (MTD), poct Negative Ecstasy (MDMA), poct Negative Oxycodone (OXY), poct Negative Phencyclidine (PCP), poct Negative Propoxyphene (PPX), poct Negative OXAZEPAM (BZO),POCT negative Buprenorphine Glucuronide (BUPG),poct Positive Nortripyline (TCA), poct Negative No images are attached to the encounter. Assessment and Plan: Christine Salcido is a 20 y.o. female that presents for follow up. Current management with Zubsolv 5.7 mg in the AM and 2.9 mg in the evening. Does feel that the current dose is appropriate. No se from the meds. Is taking as prescribed. No red flags. No diversion. -UDS as noted. Pos for BUP. Appropriate and compliant. Neg for anything else. -OARRS reviewed. Appropriate and compliant. [facility]oling is with [facility]. Will cont with them. Compliant and verified per last report. -aware will need to remain active in consoling to be active in the program. UTI- symptoms consistent with UTI. Urine in the office is pos for UTI. -will send culture -will begin on Macrobid 100 mg 2 x per day for 10 days. -ok to cont otc AZO Needs refill of other meds. Fu in 1 month -MAT Call the office for any questions or concerns. I did have discussion that if any medications are not covered or is not able to get the medications to call the office and let us know so other alternative/arrangements can be made. Christine was seen today for medication management. Diagnoses and all orders for this visit: Opioid dependence in remission - POCT ALERE DRUG SCREEN - Buprenorphine HCl-Naloxone HCl (Zubsolv) 2.9-0.71 MG Tab SL; Place 1 tablet under tongue every evening at 6 PM. - Buprenorphine HCl-Naloxone HCl (Zubsolv) 5.7-1.4 MG Tab SL; Place 1 tablet under tongue daily every morning. Encounter for long-term opiate analgesic use - POCT ALERE DRUG SCREEN - Buprenorphine HCl-Naloxone HCl (Zubsolv) 2.9-0.71 MG Tab SL; Place 1 tablet under tongue every evening at 6 PM. - Buprenorphine HCl-Naloxone HCl (Zubsolv) 5.7-1.4 MG Tab SL; Place 1 tablet under tongue daily every morning. Bipolar 1 disorder - QUEtiapine 100 MG tablet; Take 1 tablet by mouth at bedtime. Anxiety - QUEtiapine 100 MG tablet; Take 1 tablet by mouth at bedtime. Seborrheic dermatitis of scalp - ketoconazole 2 % Shampoo shampoo; Apply 1 Application topically 3 times weekly. Apply topically to wet hair 3-4 times a week Dysuria - POCT URINE DIPSTICK AUTOMATED Sensation of pressure in bladder area - POCT URINE DIPSTICK AUTOMATED Acute cystitis with hematuria - URINE CULTURE; Future - nitrofurantoin, macrocrystal-monohydrate, 100 MG capsule; Take 1 capsule by mouth 2 times daily for 10 days. Take w/ food/milk TAMICA Zavaleta documented in this encounter [facility] 01-01-2021 History of Present illness Narrative Follow Up Visit Christine Salcido [id number] 2000 01/01/2021 Chief Complaint Patient presents with Medication Management opioid dependence History of Present Illness: Christine Salcido is a 20 y.o. female presenting for follow up for MAT. Current management is with Zubsolv 5.7 mg in the AM and 2.9 mg in the evening. Taking as prescribed. Denies any cravings, but will get triggers and start thinking about using but not very often. No SE. Denies reason to have red flags, diversion, or aberrant behaviors. Denies any use of any other illicit substance. Doing well on the current dose. No problems or concerns expressed. Feels that current management is helping. Dose seems appropriate. Feels that she is doing well. Consoling- is compliant and verified per last report. States going to [facility]. Attending as set up and directed by the consoling center. Aware the need to remain compliant in consoling while active in the MAT program. Aware to have the consoling center send reports to the office. History: Past Medical History: Diagnosis Date Anxiety Bipolar 1 disorder Drug abuse in remission GERD (gastroesophageal reflux disease) Stomach ulcer Past Surgical History: Procedure Laterality Date COLONOSCOPY DIAGNOSTIC 2010 BRONCHOSCOPY FLEXIBLE DIAGNOSTIC 2010 2017 History reviewed. No pertinent family history. Social History Socioeconomic History Marital status: Single Spouse name: Not on file Number of children: Not on file Years of education: Not on file Highest education level: Not on file Occupational History Not on file Tobacco Use Smoking status: Current Every Day Smoker Years: 7.00 Types: Cigarettes Smokeless tobacco: Never Used Tobacco comment: <1 pack daily 10/02/20 Substance and Sexual Activity Alcohol use: Not Currently Drug use: Not Currently Comment: Prescribed Zubsolv Sexual activity: Not Currently Partners: Male Other Topics Concern Not on file Social History Narrative Not on file Social Determinants of Health Financial Resource Strain: Difficulty of Paying Living Expenses: Food Insecurity: Worried About Running Out of Food in the Last Year: Ran Out of Food in the Last Year: Transportation Needs: Lack of Transportation (Medical): Lack of Transportation (Non-Medical): Physical Activity: Days of Exercise per Week: Minutes of Exercise per Session: Stress: Feeling of Stress : Social Connections: Frequency of Communication with Friends and Family: Frequency of Social Gatherings with Friends and Family: Attends Mandaen Services: Active Member of Clubs or Organizations: Attends Club or Organization Meetings: Marital Status: Intimate Partner Violence: Fear of Current or Ex-Partner: Emotionally Abused: Physically Abused: Sexually Abused: Social History Tobacco Use Smoking Status Current Every Day Smoker Years: 7.00 Types: Cigarettes Smokeless Tobacco Never Used Tobacco Comment <1 pack daily 10/02/20 Social History Substance and Sexual Activity Alcohol Use Not Currently Social History Substance and Sexual Activity Drug Use Not Currently Comment: Prescribed Zubsolv Allergies: Patient has no known allergies. Home Medications: Current Outpatient Medications: ketoconazole 2 % Shampoo shampoo, Apply 1 Application topically 3 times weekly. Apply topically to wet hair 3-4 times a week, Disp: 120 mL, Rfl: 0 lamoTRIgine 100 MG tablet, Take 100 mg by mouth daily., Disp: , Rfl: omeprazole [address] capsule, Take 20 mg by mouth 2 times daily., Disp: , Rfl: Vit-Fe Fumarate-FA ( Plus) 27-1 MG tablet, Take 1 tablet by mouth daily., Disp: 90 tablet, Rfl: 0 QUEtiapine 100 MG tablet, TAKE 1 TABLET BY MOUTH EVERYDAY AT BEDTIME, Disp: , Rfl: Vitamin D3 125 MCG (5000 UT) per tablet, Take 1 tablet by mouth daily., Disp: 90 tablet, Rfl: 0 [START ON 01/02/2021] Buprenorphine HCl-Naloxone HCl (Zubsolv) 2.9-0.71 MG Tab SL, Place 1 tablet under tongue every evening at 6 PM., Disp: 30 tablet, Rfl: 0 [START ON 01/02/2021] Buprenorphine HCl-Naloxone HCl (Zubsolv) 5.7-1.4 MG Tab SL, Place 1 tablet under tongue daily every morning., Disp: 30 tablet, Rfl: 0 naloxone 4 MG/0.1ML, 1 spray by Nasal route once for 1 dose., Disp: 1 Bottle, Rfl: 0 ROS: Review of Systems Constitutional: Negative for activity change, appetite change, diaphoresis, fatigue and fever. Respiratory: Negative for cough, chest tightness, shortness of breath and wheezing. Cardiovascular: Negative for chest pain, palpitations and leg swelling. Gastrointestinal: Negative for abdominal pain, constipation, diarrhea, nausea and vomiting. Skin: Negative for color change, rash and wound. Neurological: Negative for dizziness, tremors, facial asymmetry, weakness, light-headedness and headaches. Psychiatric/Behavioral: Negative for agitation, sleep disturbance and suicidal ideas. The patient is not nervous/anxious and is not hyperactive. Physical Examination: Vital Signs: BP 104/70 (BP Location: Right arm, BP Position: Sitting) Pulse 81 Temp 97.7 F (36.5 C) (Temporal) Ht 1.575 m (5' 2 ) Wt 54.5 kg (120 lb 3.2 oz) SpO2 100% BMI 21.98 kg/m Smoking Status Current Every Day Smoker Physical Exam Constitutional: General: She is awake. Appearance: Normal appearance. Cardiovascular: Rate and Rhythm: Normal rate. Pulses: Normal pulses. No decreased pulses. Pulmonary: Effort: Pulmonary effort is normal. No accessory muscle usage, prolonged expiration or respiratory distress. Musculoskeletal: Right lower leg: No edema. Left lower leg: No edema. Skin: General: Skin is warm and dry. Capillary Refill: Capillary refill takes less than 2 seconds. Neurological: Mental Status: She is alert and oriented to person, place, and time. Sensory: Sensation is intact. Motor: Motor function is intact. Coordination: Coordination is intact. Gait: Gait is intact. Psychiatric: Mood and Affect: Mood normal. Mood is not anxious or depressed. Behavior: Behavior is cooperative. Thought Content: Thought content normal. Thought content is not paranoid or delusional. Thought content does not include homicidal or suicidal ideation. Thought content does not include homicidal or suicidal plan. Cognition and Memory: Cognition normal. Laboratory and Additional Data Reviewed: Results for orders placed or performed in visit on 12/04/20 CHLAMYDIA/GONOCOCCUS, MARIA FERNANDA Specimen: URINE FIRST CATCH; Urine-clean catch Result Value Ref Range AMPLIFIED DNA PROBE: CHLAMYDIA Negative AMPLIFIED DNA PROBE: NEISSERIA Negative POCT [facility] DRUG SCREEN Result Value Ref Range Marijuana (THC), poct Negative COCAINE (NADIRA), POCT Negative Opiate (OPI), poct Negative Methamphetamine (mAMP/MET), poct Negative Amphetamine (AMP), poct Negative Barbiturates (BAR), poct Negative Methadone (MTD), poct Negative Ecstasy (MDMA), poct Negative Oxycodone (OXY), poct Negative Phencyclidine (PCP), poct Negative Propoxyphene (PPX), poct Negative OXAZEPAM (BZO),POCT Negative Buprenorphine Glucuronide (BUPG),poct Positive Nortripyline (TCA), poct Negative No images are attached to the encounter. Assessment and Plan: Christine Salcido is a 20 y.o. female that presents for follow up. Current management with Zubsolv 5.7 mg in the AM and 2.9 mg in the evening. Does feel that the current dose is appropriate. No se from the meds. Is taking as prescribed. No red flags. No diversion. -UDS as noted. Pos for BUP. Appropriate and compliant. Neg for anything else. -OARRS reviewed. Appropriate and compliant. Consoling is with [facility]. Will cont with them. Compliant and verified per last report. -aware will need to remain active in consoling to be active in the program. Fu in 1 month -MAT Call the office for any questions or concerns. I did have discussion that if any medications are not covered or is not able to get the medications to call the office and let us know so other alternative/arrangements can be made. Christine was seen today for medication management. Diagnoses and all orders for this visit: Opioid dependence in remission - POCT [facility] DRUG SCREEN - Buprenorphine HCl-Naloxone HCl (Zubsolv) 2.9-0.71 MG Tab SL; Place 1 tablet under tongue every evening at 6 PM. - Buprenorphine HCl-Naloxone HCl (Zubsolv) 5.7-1.4 MG Tab SL; Place 1 tablet under tongue daily every morning. Encounter for long-term opiate analgesic use - POCT [facility] DRUG SCREEN - Buprenorphine HCl-Naloxone HCl (Zubsolv) 2.9-0.71 MG Tab SL; Place 1 tablet under tongue every evening at 6 PM. - Buprenorphine HCl-Naloxone HCl (Zubsolv) 5.7-1.4 MG Tab SL; Place 1 tablet under tongue daily every morning. Anxiety TAMICA Zavaleta documented in this encounter [facility] 12-04-2020 History of Present illness Narrative Pt denied any concerns prior to injection. Administered 0.5 g Rocephin into pts left gluteus. Pt tolerated injection well. Follow Up Visit Christine Salcido [id number] 2000 12/04/2020 Chief Complaint Patient presents with Medication Management opioid dependence History of Present Illness: Christine Salcido is a 20 y.o. female presenting for follow up for MAT. Current management is with Zubsolv 5.7 mg in the AM and 2.9 mg in the evening. Taking as prescribed. Denies any cravings, but will get triggers and start thinking about using but not very often. No SE. Denies reason to have red flags, diversion, or aberrant behaviors. Denies any use of any other illicit substance. Doing well on the current dose. No problems or concerns expressed. Feels that current management is helping. Dose seems appropriate. Feels that she is doing well. Consoling- is stated to be compliant. States going to [facility] Attending as set up and directed by the consoling center. Aware the need to remain compliant in consoling while active in the MAT program. Aware to have the consoling center send reports to the office. -has consoling apt later today. Will have them email the report. States that she slept with someone and her sex partner told her that they have chlamydia. Has had a different type of vaginal dc than what she normally has. No other burning or itching. States that she was trying to get into [facility] but apts too far out. Asking about tx. History: Past Medical History: Diagnosis Date Anxiety Bipolar 1 disorder Drug abuse in remission GERD (gastroesophageal reflux disease) Stomach ulcer Past Surgical History: Procedure Laterality Date COLONOSCOPY DIAGNOSTIC 2010 BRONCHOSCOPY FLEXIBLE DIAGNOSTIC 2010 2017 History reviewed. No pertinent family history. Social History Socioeconomic History Marital status: Single Spouse name: Not on file Number of children: Not on file Years of education: Not on file Highest education level: Not on file Occupational History Not on file Tobacco Use Smoking status: Current Every Day Smoker Years: 7.00 Types: Cigarettes Smokeless tobacco: Never Used Tobacco comment: <1 pack daily 10/02/20 Substance and Sexual Activity Alcohol use: Not Currently Drug use: Not Currently Comment: Prescribed Zubsolv Sexual activity: Not Currently Partners: Male Other Topics Concern Not on file Social History Narrative Not on file Social Determinants of Health Financial Resource Strain: Difficulty of Paying Living Expenses: Food Insecurity: Worried About Running Out of Food in the Last Year: Ran Out of Food in the Last Year: Transportation Needs: Lack of Transportation (Medical): Lack of Transportation (Non-Medical): Physical Activity: Days of Exercise per Week: Minutes of Exercise per Session: Stress: Feeling of Stress : Social Connections: Frequency of Communication with Friends and Family: Frequency of Social Gatherings with Friends and Family: Attends Mandaen Services: Active Member of Clubs or Organizations: Attends Club or Organization Meetings: Marital Status: Intimate Partner Violence: Fear of Current or Ex-Partner: Emotionally Abused: Physically Abused: Sexually Abused: Social History Tobacco Use Smoking Status Current Every Day Smoker Years: 7.00 Types: Cigarettes Smokeless Tobacco Never Used Tobacco Comment <1 pack daily 10/02/20 Social History Substance and Sexual Activity Alcohol Use Not Currently Social History Substance and Sexual Activity Drug Use Not Currently Comment: Prescribed Zubsolv Allergies: Patient has no known allergies. Home Medications: Current Outpatient Medications: Buprenorphine HCl-Naloxone HCl (Zubsolv) 2.9-0.71 MG Tab SL, Place 1 tablet under tongue every evening at 6 PM., Disp: 30 tablet, Rfl: 0 Buprenorphine HCl-Naloxone HCl (Zubsolv) 5.7-1.4 MG Tab SL, Place 1 tablet under tongue daily every morning., Disp: 30 tablet, Rfl: 0 ketoconazole 2 % Shampoo shampoo, Apply 1 Application topically 3 times weekly. Apply topically to wet hair 3-4 times a week, Disp: 120 mL, Rfl: 0 lamoTRIgine 100 MG tablet, Take 100 mg by mouth daily., Disp: , Rfl: omeprazole [address] capsule, Take 20 mg by mouth 2 times daily., Disp: , Rfl: Vit-Fe Fumarate-FA ( Plus) 27-1 MG tablet, Take 1 tablet by mouth daily., Disp: 90 tablet, Rfl: 0 QUEtiapine 100 MG tablet, TAKE 1 TABLET BY MOUTH EVERYDAY AT BEDTIME, Disp: , Rfl: Vitamin D3 125 MCG (5000 UT) per tablet, Take 1 tablet by mouth daily., Disp: 90 tablet, Rfl: 0 azithromycin (Zithromax) 250 MG tablet, Take 1 gm PO for one dose., Disp: 4 tablet, Rfl: 0 naloxone 4 MG/0.1ML, 1 spray by Nasal route once for 1 dose., Disp: 1 Bottle, Rfl: 0 Current Facility-Administered Medications: cefTRIAXone (ROCEPHIN) injection 1 g, 1 g, Intramuscular, Once (In Clinic), Radha Benavides, [employer] ROS: Review of Systems Constitutional: Negative for activity change, appetite change, diaphoresis, fatigue and fever. Respiratory: Negative for cough, chest tightness, shortness of breath and wheezing. Cardiovascular: Negative for chest pain, palpitations and leg swelling. Gastrointestinal: Negative for abdominal pain, constipation, diarrhea, nausea and vomiting. Skin: Negative for color change, rash and wound. Neurological: Negative for dizziness, tremors, facial asymmetry, weakness, light-headedness and headaches. Psychiatric/Behavioral: Negative for agitation, sleep disturbance and suicidal ideas. The patient is not nervous/anxious and is not hyperactive. Physical Examination: Vital Signs: BP 102/62 (BP Location: Right arm, BP Position: Sitting) Pulse 109 Temp 98.9 F (37.2 C) (Temporal) Ht 1.575 m (5' 2 ) Wt 55.2 kg (121 lb 9.6 oz) SpO2 98% BMI 22.24 kg/m Smoking Status Current Every Day Smoker Physical Exam Constitutional: General: She is awake. Appearance: Normal appearance. Cardiovascular: Rate and Rhythm: Normal rate. Pulses: Normal pulses. No decreased pulses. Pulmonary: Effort: Pulmonary effort is normal. No accessory muscle usage, prolonged expiration or respiratory distress. Musculoskeletal: Right lower leg: No edema. Left lower leg: No edema. Skin: General: Skin is warm and dry. Capillary Refill: Capillary refill takes less than 2 seconds. Neurological: Mental Status: She is alert and oriented to person, place, and time. Sensory: Sensation is intact. Motor: Motor function is intact. Coordination: Coordination is intact. Gait: Gait is intact. Psychiatric: Mood and Affect: Mood normal. Mood is not anxious or depressed. Behavior: Behavior is cooperative. Thought Content: Thought content normal. Thought content is not paranoid or delusional. Thought content does not include homicidal or suicidal ideation. Thought content does not include homicidal or suicidal plan. Cognition and Memory: Cognition normal. Laboratory and Additional Data Reviewed: Results for orders placed or performed in visit on 11/20/20 POCT [facility] DRUG SCREEN Result Value Ref Range Marijuana (THC), poct Negative COCAINE (NADIRA), POCT Negative Opiate (OPI), poct Negative Methamphetamine (mAMP/MET), poct Negative Amphetamine (AMP), poct Negative Barbiturates (BAR), poct Negative Methadone (MTD), poct Negative Ecstasy (MDMA), poct Negative Oxycodone (OXY), poct Negative Phencyclidine (PCP), poct Negative Propoxyphene (PPX), poct Negative OXAZEPAM (BZO),POCT Negative Buprenorphine Glucuronide (BUPG),poct Positive Nortripyline (TCA), poct Negative No images are attached to the encounter. Assessment and Plan: Christine Salcido is a 20 y.o. female that presents for follow up. Current management with Zubsolv 5.7 mg in the AM and 2.9 mg in the evening. Does feel that the current dose is appropriate. No se from the meds. Is taking as prescribed. No red flags. No diversion. -UDS as noted. Pos for BUP. Appropriate and compliant. Neg for anything else. -OARRS reviewed. Appropriate and compliant. Consoling is with [facility]. Will cont with them. subj compliant but not report in the system received yet. -aware will need to remain active in consoling to be active in the program. Exposure to STD. Not able to get timely apt with [facility] -will send urine for culture. -will tx with Rocephin 500 mg IM -Zithromax 1 gm for 1 dose. Fu in 1 month -MAT Call the office for any questions or concerns. I did have discussion that if any medications are not covered or is not able to get the medications to call the office and let us know so other alternative/arrangements can be made. Christine was seen today for medication management. Diagnoses and all orders for this visit: Opioid dependence in remission - POCT [facility] DRUG SCREEN - Buprenorphine HCl-Naloxone HCl (Zubsolv) 5.7-1.4 MG Tab SL; Place 1 tablet under tongue daily every morning. - Buprenorphine HCl-Naloxone HCl (Zubsolv) 2.9-0.71 MG Tab SL; Place 1 tablet under tongue every evening at 6 PM. Encounter for long-term opiate analgesic use - POCT [facility] DRUG SCREEN - Buprenorphine HCl-Naloxone HCl (Zubsolv) 5.7-1.4 MG Tab SL; Place 1 tablet under tongue daily every morning. - Buprenorphine HCl-Naloxone HCl (Zubsolv) 2.9-0.71 MG Tab SL; Place 1 tablet under tongue every evening at 6 PM. Anxiety Exposure to STD - cefTRIAXone (ROCEPHIN) injection 1 g - azithromycin (Zithromax) 250 MG tablet; Take 1 gm PO for one dose. - CHLAMYDIA/GONOCOCCUS, MARIA FERNANDA; Future TAMICA Zavaleta documented in this encounter [facility] 11-20-2020 History of Present illness Narrative Follow Up Visit Christine Salcido [id number] 1998 11/20/2020 Chief Complaint Patient presents with Medication Management opioid dependence in remission History of Present Illness: Christine Salcido is a 20 y.o. female presenting for follow up for MAT. Current management is with Zubsolv 5.7 mg in the AM and 2.9 mg in the evening. Taking as prescribed. Denies any cravings, but will get triggers and start thinking about using but not very often. No SE. Denies reason to have red flags, diversion, or aberrant behaviors. Denies any use of any other illicit substance. Doing well on the current dose. No problems or concerns expressed. Feels that current management is helping. Dose seems appropriate. Feels that she is doing well. Consoling- is stated to be compliant. States going to [facility]. Attending as set up and directed by the consoling center. Aware the need to remain compliant in consoling while active in the MAT program. Aware to have the consoling center send reports to the office. -has consoling apt later today. Will have them email the report. Reviewed bw: Hep A- pos. Has had vaccination in the past. Hep B- Neg. Had first vaccination but not the second dose. First dose was around mar-jun. Hep C- neg. The rest of the bw reviewed and WNL. Vit D - low TSH - WNL by more on the Hper end B12 WNL History: Past Medical History: Diagnosis Date Anxiety Bipolar 1 disorder Drug abuse in remission GERD (gastroesophageal reflux disease) Stomach ulcer Past Surgical History: Procedure Laterality Date COLONOSCOPY DIAGNOSTIC 2010 BRONCHOSCOPY FLEXIBLE DIAGNOSTIC 2010 2017 History reviewed. No pertinent family history. Social History Socioeconomic History Marital status: Single Spouse name: Not on file Number of children: Not on file Years of education: Not on file Highest education level: Not on file Occupational History Not on file Tobacco Use Smoking status: Current Every Day Smoker Years: 7.00 Types: Cigarettes Smokeless tobacco: Never Used Tobacco comment: <1 pack daily 10/02/20 Substance and Sexual Activity Alcohol use: Not Currently Drug use: Not Currently Comment: Prescribed Zubsolv Sexual activity: Not Currently Partners: Male Other Topics Concern Not on file Social History Narrative Not on file Social Determinants of Health Financial Resource Strain: Difficulty of Paying Living Expenses: Not on file Food Insecurity: Worried About Running Out of Food in the Last Year: Not on file Ran Out of Food in the Last Year: Not on file Transportation Needs: Lack of Transportation (Medical): Not on file Lack of Transportation (Non-Medical): Not on file Physical Activity: Days of Exercise per Week: Not on file Minutes of Exercise per Session: Not on file Stress: Feeling of Stress : Not on file Social Connections: Frequency of Communication with Friends and Family: Not on file Frequency of Social Gatherings with Friends and Family: Not on file Attends Mandaen Services: Not on file Active Member of Clubs or Organizations: Not on file Attends Club or Organization Meetings: Not on file Marital Status: Not on file Intimate Partner Violence: Fear of Current or Ex-Partner: Not on file Emotionally Abused: Not on file Physically Abused: Not on file Sexually Abused: Not on file Social History Tobacco Use Smoking Status Current Every Day Smoker Years: 7.00 Types: Cigarettes Smokeless Tobacco Never Used Tobacco Comment <1 pack daily 10/02/20 Social History Substance and Sexual Activity Alcohol Use Not Currently Social History Substance and Sexual Activity Drug Use Not Currently Comment: Prescribed Zubsolv Allergies: Patient has no known allergies. Home Medications: Current Outpatient Medications: ketoconazole 2 % Shampoo shampoo, Apply 1 Application topically 3 times weekly. Apply topically to wet hair 3-4 times a week, Disp: 120 mL, Rfl: 0 lamoTRIgine 100 MG tablet, Take 100 mg by mouth daily., Disp: , Rfl: omeprazole [address] capsule, Take 20 mg by mouth 2 times daily., Disp: , Rfl: Vit-Fe Fumarate-FA ( Plus) 27-1 MG tablet, Take 1 tablet by mouth daily., Disp: 90 tablet, Rfl: 0 QUEtiapine 100 MG tablet, TAKE 1 TABLET BY MOUTH EVERYDAY AT BEDTIME, Disp: , Rfl: Vitamin D3 125 MCG (5000 UT) per tablet, Take 1 tablet by mouth daily., Disp: 90 tablet, Rfl: 0 Buprenorphine HCl-Naloxone HCl (Zubsolv) 2.9-0.71 MG Tab SL, Place 1 tablet under tongue every evening at 6 PM for 14 days., Disp: 14 tablet, Rfl: 0 Buprenorphine HCl-Naloxone HCl (Zubsolv) 5.7-1.4 MG Tab SL, Place 1 tablet under tongue daily every morning for 14 days., Disp: 14 tablet, Rfl: 0 naloxone 4 MG/0.1ML, 1 spray by Nasal route once for 1 dose., Disp: 1 Bottle, Rfl: 0 ROS: Review of Systems Constitutional: Negative for activity change, appetite change, diaphoresis, fatigue and fever. Respiratory: Negative for cough, chest tightness, shortness of breath and wheezing. Cardiovascular: Negative for chest pain, palpitations and leg swelling. Gastrointestinal: Negative for abdominal pain, constipation, diarrhea, nausea and vomiting. Skin: Negative for color change, rash and wound. Neurological: Negative for dizziness, tremors, facial asymmetry, weakness, light-headedness and headaches. Psychiatric/Behavioral: Negative for agitation, sleep disturbance and suicidal ideas. The patient is not nervous/anxious and is not hyperactive. Physical Examination: Vital Signs: BP 102/62 (BP Location: Left arm, BP Position: Sitting) Pulse 80 Temp 97.9 F (36.6 C) (Temporal) Ht 1.575 m (5' 2 ) Wt 56 kg (123 lb 6.4 oz) SpO2 97% BMI 22.57 kg/m Smoking Status Current Every Day Smoker Physical Exam Constitutional: General: She is awake. Appearance: Normal appearance. Cardiovascular: Rate and Rhythm: Normal rate. Pulses: Normal pulses. No decreased pulses. Pulmonary: Effort: Pulmonary effort is normal. No accessory muscle usage, prolonged expiration or respiratory distress. Musculoskeletal: Right lower leg: No edema. Left lower leg: No edema. Skin: General: Skin is warm and dry. Capillary Refill: Capillary refill takes less than 2 seconds. Neurological: Mental Status: She is alert and oriented to person, place, and time. Sensory: Sensation is intact. Motor: Motor function is intact. Coordination: Coordination is intact. Gait: Gait is intact. Psychiatric: Mood and Affect: Mood normal. Mood is not anxious or depressed. Behavior: Behavior is cooperative. Thought Content: Thought content normal. Thought content is not paranoid or delusional. Thought content does not include homicidal or suicidal ideation. Thought content does not include homicidal or suicidal plan. Cognition and Memory: Cognition normal. Laboratory and Additional Data Reviewed: Results for orders placed or performed in visit on 11/06/20 POCT [facility] DRUG SCREEN Result Value Ref Range Marijuana (THC), poct Negative COCAINE (NADIRA), POCT Negative Opiate (OPI), poct Negative Methamphetamine (mAMP/MET), poct Negative Amphetamine (AMP), poct Negative Barbiturates (BAR), poct Negative Methadone (MTD), poct Negative Ecstasy (MDMA), poct Negative Oxycodone (OXY), poct Negative Phencyclidine (PCP), poct Negative Propoxyphene (PPX), poct Negative OXAZEPAM (BZO),POCT Negative Buprenorphine Glucuronide (BUPG),poct Positive Nortripyline (TCA), poct Negative No images are attached to the encounter. Assessment and Plan: Christine Salcido is a 20 y.o. female that presents for follow up. Current management with Zubsolv 5.7 mg in the AM and 2.9 mg in the evening. Does feel that the current dose is appropriate. No se from the meds. Is taking as prescribed. No red flags. No diversion. -UDS as noted. Pos for BUP. Appropriate and compliant. Neg for anything else. -OARRS reviewed. Appropriate and compliant. Consoling is with [facility]. Will cont with them. subj compliant but not report in the system received yet. -aware will need to remain active in consoling to be active in the program. Fu in 2 wk -MAT Consider going out to 1 month apt if compliant next visit. Call the office for any questions or concerns. I did have discussion that if any medications are not covered or is not able to get the medications to call the office and let us know so other alternative/arrangements can be made. Christine was seen today for medication management. Diagnoses and all orders for this visit: Opioid dependence in remission - POCT [facility] DRUG SCREEN - Buprenorphine HCl-Naloxone HCl (Zubsolv) 2.9-0.71 MG Tab SL; Place 1 tablet under tongue every evening at 6 PM for 14 days. - Buprenorphine HCl-Naloxone HCl (Zubsolv) 5.7-1.4 MG Tab SL; Place 1 tablet under tongue daily every morning for 14 days. Encounter for long-term opiate analgesic use - POCT [facility] DRUG SCREEN - Buprenorphine HCl-Naloxone HCl (Zubsolv) 2.9-0.71 MG Tab SL; Place 1 tablet under tongue every evening at 6 PM for 14 days. - Buprenorphine HCl-Naloxone HCl (Zubsolv) 5.7-1.4 MG Tab SL; Place 1 tablet under tongue daily every morning for 14 days. Anxiety TAMICA Zavaleta documented in this encounter [facility] 11-06-2020 History of Present illness Narrative Follow Up Visit Christine Salcido [id number] 2000 11/06/2020 Chief Complaint Patient presents with Medication Management opioid dependence in remission History of Present Illness: Christine Salcido is a 20 y.o. female presenting for follow up for MAT. Current management is with Zubsolv 5.7 mg in the AM and 2.9 mg in the evening. Taking as prescribed. Denies any cravings, but will get triggers and start thinking about using but not very often. No SE. Denies reason to have red flags, diversion, or aberrant behaviors. Denies any use of any other illicit substance. Doing well on the current dose. No problems or concerns expressed. Feels that current management is helping. Dose seems appropriate. Feels that she is doing well. Consoling- is stated to be compliant. States going [facility] Attending as set up and directed by the consoling center. Aware the need to remain compliant in consoling while active in the MAT program. Aware to have the consoling center send reports to the office. -just had consoling earlier today. Reviewed bw: Hep A- pos. Has had vaccination in the past. Hep B- Neg. Had first vaccination but not the second dose. First dose was around mar-jun. Hep C- neg. The rest of the bw reviewed and WNL. Vit D - low TSH - WNL by more on the Hper end B12 WNL History: Past Medical History: Diagnosis Date Anxiety Bipolar 1 disorder Drug abuse in remission GERD (gastroesophageal reflux disease) Stomach ulcer Past Surgical History: Procedure Laterality Date COLONOSCOPY DIAGNOSTIC 2010 BRONCHOSCOPY FLEXIBLE DIAGNOSTIC 2010 2017 History reviewed. No pertinent family history. Social History Socioeconomic History Marital status: Single Spouse name: Not on file Number of children: Not on file Years of education: Not on file Highest education level: Not on file Occupational History Not on file Tobacco Use Smoking status: Current Every Day Smoker Years: 7.00 Types: Cigarettes Smokeless tobacco: Never Used Tobacco comment: <1 pack daily 10/02/20 Substance and Sexual Activity Alcohol use: Not Currently Drug use: Not Currently Comment: Prescribed Zubsolv Sexual activity: Not Currently Partners: Male Other Topics Concern Not on file Social History Narrative Not on file Social Determinants of Health Financial Resource Strain: Difficulty of Paying Living Expenses: Not on file Food Insecurity: Worried About Running Out of Food in the Last Year: Not on file Ran Out of Food in the Last Year: Not on file Transportation Needs: Lack of Transportation (Medical): Not on file Lack of Transportation (Non-Medical): Not on file Physical Activity: Days of Exercise per Week: Not on file Minutes of Exercise per Session: Not on file Stress: Feeling of Stress : Not on file Social Connections: Frequency of Communication with Friends and Family: Not on file Frequency of Social Gatherings with Friends and Family: Not on file Attends Mandaen Services: Not on file Active Member of Clubs or Organizations: Not on file Attends Club or Organization Meetings: Not on file Marital Status: Not on file Intimate Partner Violence: Fear of Current or Ex-Partner: Not on file Emotionally Abused: Not on file Physically Abused: Not on file Sexually Abused: Not on file Social History Tobacco Use Smoking Status Current Every Day Smoker Years: 7.00 Types: Cigarettes Smokeless Tobacco Never Used Tobacco Comment <1 pack daily 10/02/20 Social History Substance and Sexual Activity Alcohol Use Not Currently Social History Substance and Sexual Activity Drug Use Not Currently Comment: Prescribed Zubsolv Allergies: Patient has no known allergies. Home Medications: Current Outpatient Medications: Buprenorphine HCl-Naloxone HCl (Zubsolv) 2.9-0.71 MG Tab SL, Place 1 tablet under tongue every evening at 6 PM for 14 days., Disp: 14 tablet, Rfl: 0 Buprenorphine HCl-Naloxone HCl (Zubsolv) 5.7-1.4 MG Tab SL, Place 1 tablet under tongue daily every morning for 14 days., Disp: 14 tablet, Rfl: 0 ketoconazole 2 % Shampoo shampoo, Apply 1 Application topically 3 times weekly. Apply topically to wet hair 3-4 times a week, Disp: 120 mL, Rfl: 0 lamoTRIgine 100 MG tablet, Take 100 mg by mouth daily., Disp: , Rfl: omeprazole [address] capsule, Take 20 mg by mouth 2 times daily., Disp: , Rfl: Vit-Fe Fumarate-FA ( Plus) 27-1 MG tablet, Take 1 tablet by mouth daily., Disp: 90 tablet, Rfl: 0 QUEtiapine 100 MG tablet, TAKE 1 TABLET BY MOUTH EVERYDAY AT BEDTIME, Disp: , Rfl: Vitamin D3 125 MCG (5000 UT) per tablet, Take 1 tablet by mouth daily., Disp: 90 tablet, Rfl: 0 naloxone 4 MG/0.1ML, 1 spray by Nasal route once for 1 dose., Disp: 1 Bottle, Rfl: 0 ROS: Review of Systems Constitutional: Negative for activity change, appetite change, diaphoresis, fatigue and fever. Respiratory: Negative for cough, chest tightness, shortness of breath and wheezing. Cardiovascular: Negative for chest pain, palpitations and leg swelling. Gastrointestinal: Negative for abdominal pain, constipation, diarrhea, nausea and vomiting. Skin: Negative for color change, rash and wound. Neurological: Negative for dizziness, tremors, facial asymmetry, weakness, light-headedness and headaches. Psychiatric/Behavioral: Negative for agitation, sleep disturbance and suicidal ideas. The patient is not nervous/anxious and is not hyperactive. Physical Examination: Vital Signs: BP 102/62 (BP Location: Left arm, BP Position: Sitting) Pulse 82 Temp 98.1 F (36.7 C) (Temporal) Ht 1.575 m (5' 2 ) Wt 56.6 kg (124 lb 12.8 oz) SpO2 99% BMI 22.83 kg/m Smoking Status Current Every Day Smoker Physical Exam Constitutional: General: She is awake. Appearance: Normal appearance. Cardiovascular: Rate and Rhythm: Normal rate. Pulses: Normal pulses. No decreased pulses. Pulmonary: Effort: Pulmonary effort is normal. No accessory muscle usage, prolonged expiration or respiratory distress. Musculoskeletal: Right lower leg: No edema. Left lower leg: No edema. Skin: General: Skin is warm and dry. Capillary Refill: Capillary refill takes less than 2 seconds. Neurological: Mental Status: She is alert and oriented to person, place, and time. Sensory: Sensation is intact. Motor: Motor function is intact. Coordination: Coordination is intact. Gait: Gait is intact. Psychiatric: Mood and Affect: Mood normal. Mood is not anxious or depressed. Behavior: Behavior is cooperative. Thought Content: Thought content normal. Thought content is not paranoid or delusional. Thought content does not include homicidal or suicidal ideation. Thought content does not include homicidal or suicidal plan. Cognition and Memory: Cognition normal. Laboratory and Additional Data Reviewed: Results for orders placed or performed in visit on 10/23/20 [facility] Result Value Ref Range Marijuana (THC), poct Negative COCAINE (NADIRA), POCT Negative Opiate (OPI), poct Negative Methamphetamine (mAMP/MET), poct Negative Amphetamine (AMP), poct Negative Barbiturates (BAR), poct Negative Methadone (MTD), poct Negative Ecstasy (MDMA), poct Negative Oxycodone (OXY), poct Negative Phencyclidine (PCP), poct Negative Propoxyphene (PPX), poct Negative OXAZEPAM (BZO),POCT Negative Buprenorphine Glucuronide (BUPG),poct Positive Nortripyline (TCA), poct Negative No images are attached to the encounter. Assessment and Plan: Christine Salcido is a 20 y.o. female that presents for follow up. Current management with Zubsolv 5.7 mg in the AM and 2.9 mg in the evening. Does feel that the current dose is appropriate. No se from the meds. Is taking as prescribed. No red flags. No diversion. -UDS as noted. Pos for BUP. Appropriate and compliant. Neg for anything else. -OARRS reviewed. Appropriate and compliant. [facility]ing is with [facility]. Will cont with them. subj compliant but not report in the system received yet. -aware will need to remain active in consoling to be active in the program. BW reviewed Vit D - low suggested to begin supplementation Vit b12 WNL TSH- WNL Would like to wait on hep b vaccination at this time. Fu in 2 wk -MAT Call the office for any questions or concerns. I did have discussion that if any medications are not covered or is not able to get the medications to call the office and let us know so other alternative/arrangements can be made. Christine was seen today for medication management. Diagnoses and all orders for this visit: Opioid dependence in remission - [facility] SCREEN - Buprenorphine HCl-Naloxone HCl (Zubsolv) 5.7-1.4 MG Tab SL; Place 1 tablet under tongue daily every morning for 14 days. - Buprenorphine HCl-Naloxone HCl (Zubsolv) 2.9-0.71 MG Tab SL; Place 1 tablet under tongue every evening at 6 PM for 14 days. Encounter for long-term opiate analgesic use - [facility]UG SCREEN - Buprenorphine HCl-Naloxone HCl (Zubsolv) 5.7-1.4 MG Tab SL; Place 1 tablet under tongue daily every morning for 14 days. - Buprenorphine HCl-Naloxone HCl (Zubsolv) 2.9-0.71 MG Tab SL; Place 1 tablet under tongue every evening at 6 PM for 14 days. Anxiety TAMICA Zavaleta documented in this encounter [facility] Evaluation note Diagnosis Opioid dependence in remission- Primary Opioid type dependence, in remission Encounter for long-term opiate analgesic use Encounter for long-term (current) use of other medications Anxiety Anxiety state, unspecified [facility] Diagnosis Opioid dependence in remission- Primary Opioid type dependence, in remission Encounter for long-term opiate analgesic use Encounter for long-term (current) use of other medications Anxiety Anxiety state, unspecified Exposure to STD Contact with or exposure to venereal diseases [facility] Diagnosis Opioid dependence in remission- Primary Opioid type dependence, in remission Encounter for long-term opiate analgesic use Encounter for long-term (current) use of other medications Bipolar 1 disorder Bipolar I disorder, most recent episode (or current) unspecified Anxiety Anxiety state, unspecified Seborrheic dermatitis of scalp Other seborrheic dermatitis Dysuria Sensation of pressure in bladder area Other specified disorders of bladder Acute cystitis with hematuria Acute cystitis [facility] Diagnosis Amenorrhea Absence of menstruation Positive urine test Encounter for supervision of normal first in first trimester Supervision of normal first documented in this encounter [employer] Phone: evaluation note* Diagnosis Acute nasopharyngitis- Primary Acute nasopharyngitis (common cold) Exposure to SARS-associated coronavirus Ageusia Disturbances of sensation of smell and taste [facility]* Diagnosis Abdominal pain during in first trimester- Primary Urinary tract infection without hematuria, site unspecified documented in this encounter [employer] Phone: [email or web address] note* Diagnosis with 11 completed weeks gestation documented in this encounter [employer] Phone: [email or web address] note* Diagnosis Rectal bleeding- Primary Hemorrhage of rectum and anus documented in this encounter [employer] Phone: evaluation note* Diagnosis Viral URI- Primary Acute upper respiratory infections of unspecified site Otalgia, unspecified laterality documented in this encounter [employer] Phone: evalxtsths note* Diagnosis Opioid dependence in remission- Primary Opioid type dependence, in remission Encounter for long-term opiate analgesic use Encounter for long-term (current) use of other medications , unspecified gestational age Anxiety Anxiety state, unspecified Bipolar 1 disorder Bipolar I disorder, most recent episode (or current) unspecified documented in this encounter [facility] [employer]* Diagnosis Opioid dependence in remission- Primary Opioid type dependence, in remission Encounter for long-term opiate analgesic use Encounter for long-term (current) use of other medications , unspecified gestational age Anxiety Anxiety state, unspecified documented in this encounter [employer] [facility] [employer] [facility]* Diagnosis 36 weeks gestation of state, incidental documented in this encounter [employer] Phone: [email or web address] note* Diagnosis uterine contractions in third trimester, antepartum- Primary documented in this encounter [employer] Phone: [email or web address] note* Diagnosis Opioid dependence in remission- Primary Opioid type dependence, in remission Encounter for long-term opiate analgesic use Encounter for long-term (current) use of other medications Anxiety Anxiety state, unspecified [facility] Diagnosis Positive test- Primary examination or test, positive result Opioid dependence in remission Opioid type dependence, in remission Encounter for long-term opiate analgesic use Encounter for long-term (current) use of other medications [facility]* Diagnosis Opioid dependence in remission- Primary Opioid type dependence, in remission Encounter for long-term opiate analgesic use Encounter for long-term (current) use of other medications (infant) Other specified conditions influencing health status [facility] Diagnosis Opioid dependence in remission- Primary Opioid type dependence, in remission Encounter for long-term opiate analgesic use Encounter for long-term (current) use of other medications [facility] Diagnosis Opioid dependence in remission- Primary Opioid type dependence, in remission Encounter for long-term opiate analgesic use Encounter for long-term (current) use of other medications [facility] Diagnosis Opioid dependence in remission- Primary Opioid type dependence, in remission [facility] Attachments The following attachments cannot be sent through Care Everywhere. * : Abdominal Pain ([place]) [facility] Discharge [facility]* Attachments The following attachments cannot be sent through Care Everywhere. * Rectal Bleeding ([place]) [facility] spital Discharge instructions* Attachments The following attachments cannot be sent through Care Everywhere. * URI (Upper Respiratory Infection): Viral ([place]adian) [facility] Summary Purpose Family History No Family History Records FoundNo Family History Records FoundNo Family History Records FoundNo Family History Records FoundNo Family History Records FoundNo Family History Records FoundNo Family History Records FoundNo Family History Records Found Advance Directives No Advanced Directives Records FoundDocuments on File Type Date Recorded Patient Connie Cleaner Expl anation Advance Directives and Living Will Power of [employer] Documents on File Type Date Recorded Patient Connie Cleaner Expl anation ACP-Advance Directive ACP-Power of [employer] Documents on File Type Date Recorded Patient Connie Cleaner Expl anation Advance Directives and Living Will Documents on File Type Date Recorded Patient Connie Cleaner Expl anation ACP-Advance Directive ACP-Power of [employer] Latest Code Status on File Code Status Date Activated Date Inactivated Comments Full Code 10/15/2021 8:21 PM Latest Code Status on File Code Status Date Activated Date Inactivated Comments Full Code 10/26/2021 12:48 PM 10/26/2021 11:48 PM Full Code 10/15/2021 8:21 PM 10/16/2021 2:14 AM Discharge Instructions * Instructions* Andrew Marley MD - 05/18/2019 Please take all medications as prescribed. Please follow up with your primary care physician by calling today, or as soon as possible, for thefirst available appointment. If you do not have a primary care physician, please contact a physician or clinic listed below today to establish care. Please return to the emergency department IMMEDIATELY if you develop uncontrolled fevers, uncontrolled vomiting, change in symptoms, worsening of symptoms, or ANY other concerns. * Attachments The following attachments cannot be sent through Care Everywhere. * Acute Concussion (Grenadian) documented in this encounter* Attachments The following attachments cannot be sent through Care Everywhere. * Vaginal Yeast Infection (Grenadian) documented in this encounter* Attachments The following attachments cannot be sent through Care Everywhere. * Chlamydia (Grenadian) * Pelvic Pain (Grenadian) documented in this encounter* Instructions* Karlo Warner MD - 01/22/2020 Antimicrobial therapy Acute bronchitis usually is caused by viruses. Inappropriate use of antibiotics for viral respiratory infections can cause adverse events and contribute to development of antibiotic resistance. Multiple major medical societies and health care organizations, including the [place] Centersfor Disease Control and Prevention, [employer], and the National Health Services in the [place], specifically recommend against the routine use of empiric antibiotics for the treatment of acute bronchitis. Avoidance of antibiotics for the treatment of adults with acute bronchitis was also included as a component of the Healthcare Effectiveness Data and Information Set reported to the National Committee for Head [employer] Director in 2007 and included as a National Quality Forum quality measure. * Attachments The following attachments cannot be sent through Care Everywhere. * Bronchitis (Grenadian) * Headache (Grenadian) documented in this encounter Assessments Diagnosis Concussion without loss of consciousness, initial encounter- Primary Diagnosis Dysuria- Primary Yeast vaginitis Candidiasis of vulva and vagina Diagnosis Chlamydia infection Unspecified chlamydial infection, in conditions classified elsewhere and of unspecified site Pelvic pain Diagnosis Acute bronchitis, unspecified organism Encounter for medication refill Issue of repeat prescriptions Nonintractable headache, unspecified chronicity pattern, unspecified headache type Diagnosis Screening for STD (sexually transmitted disease) Screening examination for venereal disease Screening for cervical cancer Screening for malignant neoplasm of the cervix Diagnosis Encounter for medical examination to establish care- Primary Opioid dependence in remission Opioid type dependence, in remission Encounter for long-term opiate analgesic use Encounter for long-term (current) use of other medications Seborrheic dermatitis of scalp Other seborrheic dermatitis Diagnosis Opioid dependence in remission- Primary Opioid type dependence, in remission Encounter for long-term opiate analgesic use Encounter for long-term (current) use of other medications Fatigue, unspecified type Hair loss Alopecia, unspecified Diagnosis Opioid dependence in remission- Primary Opioid type dependence, in remission Encounter for long-term opiate analgesic use Encounter for long-term (current) use of other medications Vitamin D deficiency Unspecified vitamin D deficiency Diagnosis Opioid dependence in remission Opioid type dependence, in remission Encounter for long-term opiate analgesic use Encounter for long-term (current) use of other medications History of Present Illness * Radha Benavides, [employer] - 09/25/2020 10:00 AM EST New Patient Visit Christine Salcido [id number] 2000 09/25/2020 Chief Complaint Patient presents with [facility] MAT Appt. History of Present Illness: Christine Salcido is a 20 y.o. female presenting for an evaluation to get est in the MAT program as a new pt. Here today to get est in the MAT program. Initial intake was done by Mariaelena HINOJOSA. Please see the intake information that was established related to her drug abuse hx that has got her to where she is today. All of the program details were provided by Mariaelena. Handouts were given and folder with all of the information pertaining to the MAT program, guidelines, rules, and expectations. She verbalizes understanding. It was identified that she would be a good candidate for the MAT program. I did meet with her and all questions were answered. Discussed the details of the MAT program and she verbalizes understanding. History: Past Medical History: Diagnosis Date Anxiety Bipolar 1 disorder Drug abuse in remission GERD (gastroesophageal reflux disease) Stomach ulcer Past Surgical History: Procedure Laterality Date COLONOSCOPY DIAGNOSTIC 2010 BRONCHOSCOPY FLEXIBLE DIAGNOSTIC 2010 2017 History reviewed. No pertinent family history. Social History Socioeconomic History Marital status: Single Spouse name: Not on file Number of children: Not on file Years of education: Not on file Highest education level: Not on file Occupational History Not on file Tobacco Use Smoking status: Current Every Day Smoker Years: 7.00 Types: Cigarettes Smokeless tobacco: Never Used Substance and Sexual Activity Alcohol use: Not Currently Drug use: Not Currently Comment: Prescribed Zubsolv Sexual activity: Not Currently Partners: Male Other Topics Concern Not on file Social History Narrative Not on file Social Determinants of Health Financial Resource Strain: Difficulty of Paying Living Expenses: Not on file Food Insecurity: Worried About Running Out of Food in the Last Year: Not on file Ran Out of Food in the Last Year: Not on file Transportation Needs: Lack of Transportation (Medical): Not on file Lack of Transportation (Non-Medical): Not on file Physical Activity: Days of Exercise per Week: Not on file Minutes of Exercise per Session: Not on file Stress: Feeling of Stress : Not on file Social Connections: Frequency of Communication with Friends and Family: Not on file Frequency of Social Gatherings with Friends and Family: Not on file Attends Mandaen Services: Not on file Active Member of Clubs or Organizations: Not on file Attends Club or Organization Meetings: Not on file Marital Status: Not on file Intimate Partner Violence: Fear of Current or Ex-Partner: Not on file Emotionally Abused: Not on file Physically Abused: Not on file Sexually Abused: Not on file Social History Tobacco Use Smoking Status Current Every Day Smoker Years: 7.00 Types: Cigarettes Smokeless Tobacco Never Used Social History Substance and Sexual Activity Alcohol Use Not Currently Social History Substance and Sexual Activity Drug Use Not Currently Comment: Prescribed Zubsolv Allergies: Lactose Home Medications: Current Outpatient Medications: lamoTRIgine 100 MG tablet, Take 100 mg by mouth daily., Disp: , Rfl: omeprazole [address] capsule, Take 20 mg by mouth 2 times daily., Disp: , Rfl: QUEtiapine 100 MG tablet, TAKE 1 TABLET BY MOUTH EVERYDAY AT BEDTIME, Disp: , Rfl: Buprenorphine HCl-Naloxone HCl (Zubsolv) 2.9-0.71 MG Tab SL, Place 1 tablet under tongue 2 times daily for 7 days., Disp: 14 tablet, Rfl: 0 ketoconazole 2 % Shampoo shampoo, Apply 1 Application topically 3 times weekly. Apply topically to wet hair 3-4 times a week, Disp: 120 mL, Rfl: 0 naloxone 4 MG/0.1ML, 1 spray by Nasal route once for 1 dose., Disp: 1 Bottle, Rfl: 0 ROS: Review of Systems Constitutional: Negative for activity change, appetite change, diaphoresis, fatigue and fever. Respiratory: Negative for cough, chest tightness, shortness of breath and wheezing. Cardiovascular: Negative for chest pain, palpitations and leg swelling. Gastrointestinal: Negative for abdominal pain, constipation, diarrhea, nausea and vomiting. Skin: Negative for color change, rash and wound. Neurological: Negative for dizziness, tremors, facial asymmetry, weakness, light-headedness and headaches. Psychiatric/Behavioral: Negative for agitation, sleep disturbance and suicidal ideas. The patient is not nervous/anxious and is not hyperactive. Physical Examination: Vital Signs: BP 116/70 Pulse 76 Temp 98.2 F (36.8 C) (Temporal) Resp 16 Ht 1.575 m (5' 2 ) Wt 59.4 kg (131 lb) SpO2 98% BMI 23.96 kg/m Smoking Status Current Every Day Smoker Physical Exam Constitutional: General: She is awake. Appearance: Normal appearance. Cardiovascular: Rate and Rhythm: Normal rate. Pulses: Normal pulses. No decreased pulses. Pulmonary: Effort: Pulmonary effort is normal. No accessory muscle usage, prolonged expiration or respiratory distress. Musculoskeletal: Right lower leg: No edema. Left lower leg: No edema. Skin: General: Skin is warm and dry. Capillary Refill: Capillary refill takes less than 2 seconds. Neurological: Mental Status: She is alert and oriented to person, place, and time. Sensory: Sensation is intact. Motor: Motor function is intact. Coordination: Coordination is intact. Gait: Gait is intact. Psychiatric: Mood and Affect: Mood normal. Mood is not anxious or depressed. Behavior: Behavior is cooperative. Thought Content: Thought content normal. Thought content is not paranoid or delusional. Thought content does not include homicidal or suicidal ideation. Thought content does not include homicidal or suicidal plan. Cognition and Memory: Cognition normal. Laboratory and Additional Data Reviewed: Results for orders placed or performed in visit on 09/25/20 COMPREHENSIVE METABOLIC PANEL Result Value Ref Range GLUCOSE 77 70 - 100 MG/DL BUN 13 7.0 - 20.0 MG/DL CREATININE SERUM 0.80 0.7 - 1.2 MG/DL SODIUM 137 137 - 145 MMOL/L POTASSIUM 4.3 3.5 - 5.1 MMOL/L CHLORIDE 102 98 - 107 MMOL/L CALCIUM 9.4 8.4 - 10.2 MG/DL PROTEIN, TOTAL 7.5 6.3 - 8.2 GM/DL ALBUMIN 4.3 3.5 - 5.0 G/dl BILIRUBIN, TOTAL 0.3 0.2 - 1.3 MG/DL AST 26 14 - 36 IU/L ALKALINE PHOSPHATASE 68 38 - 126 IU/L CARBON DIOXIDE (CO2) 26 22 - 30 MMOL/L A/G Ratio 1.3 1.3 - 2.2 RATIO ALT 11 <35 IU/L ESTIMATED GFR, NON AMER >60 ml/min/1.73sq.m ESTIMATED GFR, >60 ml/min/1.73sq.m GFR COMMENT Average GFR for 20-29 years old = 116. HEPATITIS A, B, C Result Value Ref Range Hep A AB (IGG + IGM) POSITIVE (A) NEGATIVE Hep B Surf AG NEGATIVE NEGATIVE HEP B CORE AB,TOTAL(IGG+IGM) NEGATIVE NEGATIVE Hep B Surf AB NEGATIVE (A) POSITIVE HEP C AB NEGATIVE NEGATIVE HIV 1 AND 2 ANTIBODIES Result Value Ref Range HIV-1/HIV-2 ANTIBODY NONREACTIVE NONREACTIVE CBC, EDIF, PLATELET Result Value Ref Range WBC (WHITE BLOOD COUNT) 6.6 3.6 - 11.0 10*3/uL RBC 4.45 4.0 - 5.4 10*6/uL HEMOGLOBIN (HGB) 14.2 12.0 - 16.0 G/DL HEMATOCRIT (HCT) 41.3 36.0 - 48.0 % MEAN CELL VOLUME 92.8 80.0 - 100.0 FL Mean Cell HGB 32.0 26.0 - 35.0 PG MEAN CELL HGB CONCENTRATION 34.4 27.0 - 37.0 G/DL RBC DISTRIBUTION 13.6 11.5 - 14.5 % PLATELET COUNT 192 130 - 400 10*3/uL MEAN PLATELET VOLUME 10.4 7.4 - 11.0 FL NEUTROPHILS 39 (L) 42.2 - 75.2 % BAND NEUTROPHIL % 4 % LYMPHOCYTE 50 20.5 - 51.1 % MONOCYTE % 4 1.7 - 10.0 % EOSINOPHIL % 3 0 - 7.0 % RBC COMMENTS NORMAL WBC MORPHOLOGY STATUS <10% BANDS PRESENT DIFFERENTIAL TYPE MANUAL DIFF % PLATELET COMMENT ADEQUATE HEPATITIS A IGM AB Result Value Ref Range Hep A AB IGM Negative POCT ALERE DRUG SCREEN Result Value Ref Range Marijuana (THC), poct Negative COCAINE (NADIRA), POCT Negative Opiate (OPI), poct Negative Methamphetamine (mAMP/MET), poct Negative Amphetamine (AMP), poct Negative Barbiturates (BAR), poct Negative Methadone (MTD), poct Negative Ecstasy (MDMA), poct Negative Oxycodone (OXY), poct Negative Phencyclidine (PCP), poct Negative Propoxyphene (PPX), poct Negative OXAZEPAM (BZO),POCT Negative Buprenorphine Glucuronide (BUPG),poct Postive Nortripyline (TCA), poct Negative POCT URINE Result Value Ref Range POCT URINE Negative No images are attached to the encounter. Assessment and Plan: Christine Salcido is a 20 y.o. female that presented for evaluation to get est in the MAT program. Will begin on Zubsolv 2.9 mg 2 x per day. -UDS as noted above. -OARRs reviewed. No concerns. Aware that will need to get est in consoling to be active in the program. Will get bw. Will send in shampoo for the seborrheic dermatitis. Fu in 1 wk. -MAT Call the office for any questions or concerns. I did have discussion that if any medications are not covered or is not able to get the medications to call the office and let us know so other alternative/arrangements can be made. Christine was seen today for establish care. Diagnoses and all orders for this visit: Encounter for medical examination to establish care Opioid dependence in remission - POCT ALERE DRUG SCREEN - POCT URINE - HIV 1 AND 2 ANTIBODIES; Future - HEPATITIS A, B, C; Future - Cancel: CBC, EDIF, PLATELET; Future - COMPREHENSIVE METABOLIC PANEL; Future - naloxone 4 MG/0.1ML; 1 spray by Nasal route once for 1 dose. - COMPREHENSIVE METABOLIC PANEL - Cancel: CBC, EDIF, PLATELET - HEPATITIS A, B, C - HIV 1 AND 2 ANTIBODIES - Buprenorphine HCl-Naloxone HCl (Zubsolv) 2.9-0.71 MG Tab SL; Place 1 tablet under tongue 2 times daily for 7 days. Encounter for long-term opiate analgesic use - naloxone 4 MG/0.1ML; 1 spray by Nasal route once for 1 dose. - Buprenorphine HCl-Naloxone HCl (Zubsolv) 2.9-0.71 MG Tab SL; Place 1 tablet under tongue 2 times daily for 7 days. Seborrheic dermatitis of scalp - ketoconazole 2 % Shampoo shampoo; Apply 1 Application topically 3 times weekly. Apply topically to wet hair 3-4 times a week Other orders - CBC, EDIF, PLATELET - HEPATITIS A IGM AB TAMICA Zavaleta * Mariaelena Morrison - 09/25/2020 10:00 AM EST Patient presents to be established into [facility]. [facility] would like [facility]. Patient has current issues of psoriasis in her head and would like shampoo send in for it. No otherissues at this time. Patient is aware that he/she is to attending drug and alcohol counseling via a year or until counselor deems he/she not longer needs it. Patient is currently in counseling at . She is going to keep going to counseling there. She is going to get counseling verification sent our to my office. Patient is aware that I am to have received his/her AOD assessment and his/her verification of attending counseling within the first two weeks of being established into our MAT program. Patient is aware of Medical Marijuana Policy. Patient is aware of our BNZO Policy. Drug History Since : ALCOHOL, MARIJUANA, POSH, HASH, KRATOM, OPIUM, MUSHROOMS, HEROIN, COCAINE, CRACK COCAINE, INHALANT,METHAMPHETAMINE, CRYSTAL METH, PCP, ECSTASY, BATH SALTS, KETAMINE, MORPHINE, METHADONE, DEMEROL, FENTANYL, OXYCODONE, CODEINE, HYDROCODONE, TRAMADOL, BUPRENORPHINE, ADIPEX, ANY OTHER DRUGS? ADDICTION JOURNEY: Patient addiction started at the age of 13. She states that she was doing percocet with her high school boyfriend. She was smoking it. It started getting way too expensive. She was paying almost $50.00a pill. At the ago of 14 she started doing heroin. At her worst she states she was smoking 3.5 grams daily. A t the age of 14 her high school boyfriend went to [facility]. For 5 years. Her life spiraledout of controlled. She was living house to to house smoking crack and doing dope. Her mom at the time was also doing drugs. So it was not a good environment at all. 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 This means two times people worse wires when going to buy heroin for her. She [facility]. They sent her to an inpatient facility in [place], [place]. She was told that if she completed treatment there that she would be able to get the charges against her dropped. She endedup messing up and going back to [facility] in 2018. She ws in [facility] for 7 months. Then she was [facility] for 4.5 months. She did fairly decent until Summer for 2019 when she relapsed again. She lost her car and her apartment. She spent 60 days in [facility] and they ended up sending her to the [facility] in [place], [place]. She went in March 2020 till now. She has relapsed once since being there.She called her financial aids officer and he made her serve two weeks in [facility] but was able to return to [facility]. Her financial aids officer is Jeancarlos Marin with [facility]. She is still in the [facility] until she is able to save up enough money to live on her own. She is not allowed to live with her mom or her dad. They say her mom and dad are both triggers for her to relapse. Her mom is a previous drug addict and her dad lives in [place] and her financial aids officer does not want her living in [place]. She does have Felony charges and then some on her due to not completing programs. She has been seeing Dr. Cox at [facility] and was previously seeing Janet Ricci in [place], [place]. She last saw Kenny on 09/17/20. He wrote he a prescription for 7 days. She is switching to us because Dr. Cox will not handle any of her primary care needs and she feels like he does not listen that the dosage that he has her on still makes her have cravings. She has a history of one overdose and that was summer. She has no children. She was on Vivitrol in 2018 while in [address] inpatient place in [facility] for 6 months. Follow-Up: Preventive labs were ordered and drawn. Urine drug screen was completed. test was completed. OAARS was ran. Echocardiogram was not ordered. Patient does not have any IV drug abuse history. Patient has set a goal of trying to titrate down off the Zubsolv in 12 months. Titration processes and pamphlets on Lucemyra and Vivitrol were given to patient. Patient will follow-up with [facility] in one week. Appointment has been scheduled. Narcan was sent into the pharmacy. documented in this encounter* Claudette Falk - 10/02/2020 10:50 AM EDT Collected 2 gold tubes from pts left arm. Collection took one attempt and pt tolerated collection well. * Radha Benavides, [employer] - 10/02/2020 10:50 AM EDT Follow Up Visit Christine Salcido [id number] 2000 10/02/2020 Chief Complaint Patient presents with Medication Management opioid dependence. Pt states Zubsolv was supposed to be 5.4 and only 2.9 was sent to pharmacy and wants to discuss with PCP History of Present Illness: Christine Salcido is a 20 y.o. female presenting for follow up for MAT. Current management is with 2.9 mg 2 x per day. Taking as prescribed. Denies any cravings, but will get triggers and start thinking about using but not very often. No SE. Denies reason to have red flags, diversion, or aberrant behaviors. Denies any use of any other illicit substance. Doing well on the current dose. No problems or concerns expressed. Feels that current dose is not lasting and has a crash , will get tired, will get pain in the legs. Is ok when waking up. Feels that the AM dose needs to be higher. subj reports that her previous MAT provider was trying to titrate up on the dose to a level that was appropriate. Was managed in the past with Suboxone 16 mg per day. Consoling- is stated to be compliant. States going to [facility]. Attending as set up and directed by the consoling center. Aware the need to remain compliant in consoling while active inthe MAT program. Aware to have the consoling center send reports to the office. Reviewed bw: Hep A- pos. Has had vaccination in the past. Hep B- Neg. Had first vaccination but not the second dose. First dose was around mar-jun. Hep C- neg. The rest of the bw reviewed and WNL. Concerns about her hair falling out. subj in the shower has handfuls of hair that falls out. Thinksthat it is way more than 100 hairs per day. Other symptoms include fatigue. Is concerned that this could be a thyroid issue. Has never had work up in the past for thyroid. History: Past Medical History: Diagnosis Date Anxiety Bipolar 1 disorder Drug abuse in remission GERD (gastroesophageal reflux disease) Stomach ulcer Past Surgical History: Procedure Laterality Date COLONOSCOPY DIAGNOSTIC 2010 BRONCHOSCOPY FLEXIBLE DIAGNOSTIC 2010 2017 History reviewed. No pertinent family history. Social History Socioeconomic History Marital status: Single Spouse name: Not on file Number of children: Not on file Years of education: Not on file Highest education level: Not on file Occupational History Not on file Tobacco Use Smoking status: Current Every Day Smoker Years: 7.00 Types: Cigarettes Smokeless tobacco: Never Used Tobacco comment: <1 pack daily 10/02/20 Substance and Sexual Activity Alcohol use: Not Currently Drug use: Not Currently Comment: Prescribed Zubsolv Sexual activity: Not Currently Partners: Male Other Topics Concern Not on file Social History Narrative Not on file Social Determinants of Health Financial Resource Strain: Difficulty of Paying Living Expenses: Not on file Food Insecurity: Worried About Running Out of Food in the Last Year: Not on file Ran Out of Food in the Last Year: Not on file Transportation Needs: Lack of Transportation (Medical): Not on file Lack of Transportation (Non-Medical): Not on file Physical Activity: Days of Exercise per Week: Not on file Minutes of Exercise per Session: Not on file Stress: Feeling of Stress : Not on file Social Connections: Frequency of Communication with Friends and Family: Not on file Frequency of Social Gatherings with Friends and Family: Not on file Attends Mandaen Services: Not on file Active Member of Clubs or Organizations: Not on file Attends Club or Organization Meetings: Not on file Marital Status: Not on file Intimate Partner Violence: Fear of Current or Ex-Partner: Not on file Emotionally Abused: Not on file Physically Abused: Not on file Sexually Abused: Not on file Social History Tobacco Use Smoking Status Current Every Day Smoker Years: 7.00 Types: Cigarettes Smokeless Tobacco Never Used Tobacco Comment <1 pack daily 10/02/20 Social History Substance and Sexual Activity Alcohol Use Not Currently Social History Substance and Sexual Activity Drug Use Not Currently Comment: Prescribed Zubsolv Allergies: Patient has no known allergies. Home Medications: Current Outpatient Medications: ketoconazole 2 % Shampoo shampoo, Apply 1 Application topically 3 times weekly. Apply topically to wet hair 3-4 times a week, Disp: 120 mL, Rfl: 0 lamoTRIgine 100 MG tablet, Take 100 mg by mouth daily., Disp: , Rfl: omeprazole [address] capsule, Take 20 mg by mouth 2 times daily., Disp: , Rfl: QUEtiapine 100 MG tablet, TAKE 1 TABLET BY MOUTH EVERYDAY AT BEDTIME, Disp: , Rfl: Buprenorphine HCl-Naloxone HCl (Zubsolv) 2.9-0.71 MG Tab SL, Place 1 tablet under tongue every evening at 6 PM for 7 days., Disp: 7 tablet, Rfl: 0 Buprenorphine HCl-Naloxone HCl (Zubsolv) 5.7-1.4 MG Tab SL, Place 1 tablet under tongue daily everymorning for 7 days., Disp: 7 tablet, Rfl: 0 naloxone 4 MG/0.1ML, 1 spray by Nasal route once for 1 dose., Disp: 1 Bottle, Rfl: 0 ROS: Review of Systems Constitutional: Negative for activity change, appetite change, diaphoresis, fatigue and fever. Respiratory: Negative for cough, chest tightness, shortness of breath and wheezing. Cardiovascular: Negative for chest pain, palpitations and leg swelling. Gastrointestinal: Negative for abdominal pain, constipation, diarrhea, nausea and vomiting. Skin: Negative for color change, rash and wound. Neurological: Negative for dizziness, tremors, facial asymmetry, weakness, light-headedness and headaches. Psychiatric/Behavioral: Negative for agitation, sleep disturbance and suicidal ideas. The patient is not nervous/anxious and is not hyperactive. Physical Examination: Vital Signs: BP 106/68 (BP Location: Right arm, BP Position: Sitting) Pulse 75 Temp 97.5 F (36.4 C) (Temporal) Ht 1.575 m (5' 2 ) Wt 59.3 kg (130 lb 12.8 oz) SpO2 98% BMI 23.92 kg/m Smoking Status Current Every Day Smoker Physical Exam Constitutional: General: She is awake. Appearance: Normal appearance. Cardiovascular: Rate and Rhythm: Normal rate. Pulses: Normal pulses. No decreased pulses. Pulmonary: Effort: Pulmonary effort is normal. No accessory muscle usage, prolonged expiration or respiratory distress. Musculoskeletal: Right lower leg: No edema. Left lower leg: No edema. Skin: General: Skin is warm and dry. Capillary Refill: Capillary refill takes less than 2 seconds. Neurological: Mental Status: She is alert and oriented to person, place, and time. Sensory: Sensation is intact. Motor: Motor function is intact. Coordination: Coordination is intact. Gait: Gait is intact. Psychiatric: Mood and Affect: Mood normal. Mood is not anxious or depressed. Behavior: Behavior is cooperative. Thought Content: Thought content normal. Thought content is not paranoid or delusional. Thought content does not include homicidal or suicidal ideation. Thought content does not include homicidal or suicidal plan. Cognition and Memory: Cognition normal. Laboratory and Additional Data Reviewed: Results for orders placed or performed in visit on 10/02/20 POCT ALERE DRUG SCREEN Result Value Ref Range Marijuana (THC), poct Negative COCAINE (NADIRA), POCT Negative Opiate (OPI), poct Negative Methamphetamine (mAMP/MET), poct Negative Amphetamine (AMP), poct Negative Barbiturates (BAR), poct Negative Methadone (MTD), poct Negative Ecstasy (MDMA), poct Negative Oxycodone (OXY), poct Negative Phencyclidine (PCP), poct Negative Propoxyphene (PPX), poct Negative OXAZEPAM (BZO),POCT Negative Buprenorphine Glucuronide (BUPG),poct Positive Nortripyline (TCA), poct Negative No images are attached to the encounter. Assessment and Plan: Christine Salcido is a 20 y.o. female that presents for follow up. Current management with Zubsolv 2.9 mg 2 x per day. Does not feel that the current dose is appropriate. Feels that the AM dose could be increased. The evening dose seems to be ok. Is feeling symptoms on the current dose. -will increase Zubsolv to 5.7 in the AM and 2.9 in the evening. -UDS as noted. Pos for BUP. Appropriate and compliant. Neg for anything else. -OARRS reviewed. Appropriate and compliant. Consoling is with [facility]. Will cont with them. subj compliant but not report in the system received yet. -aware will need to remain active in consoling to be active in the program. Concerns about fatigue and hair falling out. Is concerned that this could be thyroid related -will get bw for further evaluation. Other BW reviewed. -hep A pos as she has had vaccination. -Hep B neg. Did not receive vaccination coarse. Interested in vaccination and will begin next visit. Fu in 1 wk -MAT Dose adjustment and results. -bw results. Call the office for any questions or concerns. I did have discussion that if any medications are not covered or is not able to get the medications to call the office and let us know so other alternative/arrangements can be made. Christine was seen today for medication management. Diagnoses and all orders for this visit: Opioid dependence in remission - POCT ALERE DRUG SCREEN - Buprenorphine HCl-Naloxone HCl (Zubsolv) 2.9-0.71 MG Tab SL; Place 1 tablet under tongue every evening at 6 PM for 7 days. - Buprenorphine HCl-Naloxone HCl (Zubsolv) 5.7-1.4 MG Tab SL; Place 1 tablet under tongue daily every morning for 7 days. Encounter for long-term opiate analgesic use - POCT ALERE DRUG SCREEN - Buprenorphine HCl-Naloxone HCl (Zubsolv) 2.9-0.71 MG Tab SL; Place 1 tablet under tongue every evening at 6 PM for 7 days. - Buprenorphine HCl-Naloxone HCl (Zubsolv) 5.7-1.4 MG Tab SL; Place 1 tablet under tongue daily every morning for 7 days. Fatigue, unspecified type - TSH W/FT4 REFLEX; Future - VITAMIN D (25-HYDROXY,TOTAL); Future - VITAMIN B12; Future - VITAMIN B12 - VITAMIN D (25-HYDROXY,TOTAL) - TSH W/FT4 REFLEX Hair loss - TSH W/FT4 REFLEX; Future - VITAMIN D (25-HYDROXY,TOTAL); Future - VITAMIN B12; Future - VITAMIN B12 - VITAMIN D (25-HYDROXY,TOTAL) - TSH W/FT4 REFLEX TAMICA Zavaleta documented in this encounter* Radha Benavides APRN-CNP - 10/09/2020 1:50 PM EDT Follow Up Visit Christine Salcido [id number] 2000 10/09/2020 Chief Complaint Patient presents with Medication Management opioid dependence in remission History of Present Illness: Christine Salcido is a 20 y.o. female presenting for follow up for MAT. Current management is with 2.9 mg 2 x per day. Taking as prescribed. Denies any cravings, but will get triggers and start thinking about using but not very often. No SE. Denies reason to have red flags, diversion, or aberrant behaviors. Denies any use of any other illicit substance. Doing well on the current dose. No problems or concerns expressed. Feels that current dose is not lasting and has a crash , will get tired, will get pain in the legs. Is ok when waking up. Feels that the AM dose needs to be higher. subj reports that her previous MAT provider was trying to titrate up on the dose to a level that was appropriate. Was managed in the past with Suboxone 16 mg per day. Consoling- is stated to be compliant. States going to [facility]. Attending as set up and directed by the consoling center. Aware the need to remain compliant in consoling while active inthe MAT program. Aware to have the consoling center send reports to the office. Reviewed bw: Hep A- pos. Has had vaccination in the past. Hep B- Neg. Had first vaccination but not the second dose. First dose was around mar-jun. Hep C- neg. The rest of the bw reviewed and WNL. Vit D - low TSH - WNL by more on the Hper end B12 WNL History: Past Medical History: Diagnosis Date Anxiety Bipolar 1 disorder Drug abuse in remission GERD (gastroesophageal reflux disease) Stomach ulcer Past Surgical History: Procedure Laterality Date COLONOSCOPY DIAGNOSTIC 2010 BRONCHOSCOPY FLEXIBLE DIAGNOSTIC 2010 2017 History reviewed. No pertinent family history. Social History Socioeconomic History Marital status: Single Spouse name: Not on file Number of children: Not on file Years of education: Not on file Highest education level: Not on file Occupational History Not on file Tobacco Use Smoking status: Current Every Day Smoker Years: 7.00 Types: Cigarettes Smokeless tobacco: Never Used Tobacco comment: <1 pack daily 10/02/20 Substance and Sexual Activity Alcohol use: Not Currently Drug use: Not Currently Comment: Prescribed Zubsolv Sexual activity: Not Currently Partners: Male Other Topics Concern Not on file Social History Narrative Not on file Social Determinants of Health Financial Resource Strain: Difficulty of Paying Living Expenses: Not on file Food Insecurity: Worried About Running Out of Food in the Last Year: Not on file Ran Out of Food in the Last Year: Not on file Transportation Needs: Lack of Transportation (Medical): Not on file Lack of Transportation (Non-Medical): Not on file Physical Activity: Days of Exercise per Week: Not on file Minutes of Exercise per Session: Not on file Stress: Feeling of Stress : Not on file Social Connections: Frequency of Communication with Friends and Family: Not on file Frequency of Social Gatherings with Friends and Family: Not on file Attends Mandaen Services: Not on file Active Member of Clubs or Organizations: Not on file Attends Club or Organization Meetings: Not on file Marital Status: Not on file Intimate Partner Violence: Fear of Current or Ex-Partner: Not on file Emotionally Abused: Not on file Physically Abused: Not on file Sexually Abused: Not on file Social History Tobacco Use Smoking Status Current Every Day Smoker Years: 7.00 Types: Cigarettes Smokeless Tobacco Never Used Tobacco Comment <1 pack daily 10/02/20 Social History Substance and Sexual Activity Alcohol Use Not Currently Social History Substance and Sexual Activity Drug Use Not Currently Comment: Prescribed Zubsolv Allergies: Patient has no known allergies. Home Medications: Current Outpatient Medications: ketoconazole 2 % Shampoo shampoo, Apply 1 Application topically 3 times weekly. Apply topically to wet hair 3-4 times a week, Disp: 120 mL, Rfl: 0 lamoTRIgine 100 MG tablet, Take 100 mg by mouth daily., Disp: , Rfl: omeprazole [address] capsule, Take 20 mg by mouth 2 times daily., Disp: , Rfl: QUEtiapine 100 MG tablet, TAKE 1 TABLET BY MOUTH EVERYDAY AT BEDTIME, Disp: , Rfl: Buprenorphine HCl-Naloxone HCl (Zubsolv) 2.9-0.71 MG Tab SL, Place 1 tablet under tongue every evening at 6 PM for 14 days., Disp: 14 tablet, Rfl: 0 Buprenorphine HCl-Naloxone HCl (Zubsolv) 5.7-1.4 MG Tab SL, Place 1 tablet under tongue daily everymorning for 14 days., Disp: 14 tablet, Rfl: 0 naloxone 4 MG/0.1ML, 1 spray by Nasal route once for 1 dose., Disp: 1 Bottle, Rfl: 0 Vit-Fe Fumarate-FA ( Plus) 27-1 MG tablet, Take 1 tablet by mouth daily., Disp: 90tablet, Rfl: 0 Vitamin D3 125 MCG (5000 UT) per tablet, Take 1 tablet by mouth daily., Disp: 90 tablet, Rfl: 0 ROS: Review of Systems Constitutional: Negative for activity change, appetite change, diaphoresis, fatigue and fever. Respiratory: Negative for cough, chest tightness, shortness of breath and wheezing. Cardiovascular: Negative for chest pain, palpitations and leg swelling. Gastrointestinal: Negative for abdominal pain, constipation, diarrhea, nausea and vomiting. Skin: Negative for color change, rash and wound. Neurological: Negative for dizziness, tremors, facial asymmetry, weakness, light-headedness and headaches. Psychiatric/Behavioral: Negative for agitation, sleep disturbance and suicidal ideas. The patient is not nervous/anxious and is not hyperactive. Physical Examination: Vital Signs: BP 102/62 (BP Location: Left arm, BP Position: Sitting) Pulse 87 Temp 97.8 F (36.6 C) (Temporal) Ht 1.575 m (5' 2 ) Wt 58.3 kg (128 lb 9.6 oz) SpO2 97% BMI 23.52 kg/m Smoking Status Current Every Day Smoker Physical Exam Constitutional: General: She is awake. Appearance: Normal appearance. Cardiovascular: Rate and Rhythm: Normal rate. Pulses: Normal pulses. No decreased pulses. Pulmonary: Effort: Pulmonary effort is normal. No accessory muscle usage, prolonged expiration or respiratory distress. Musculoskeletal: Right lower leg: No edema. Left lower leg: No edema. Skin: General: Skin is warm and dry. Capillary Refill: Capillary refill takes less than 2 seconds. Neurological: Mental Status: She is alert and oriented to person, place, and time. Sensory: Sensation is intact. Motor: Motor function is intact. Coordination: Coordination is intact. Gait: Gait is intact. Psychiatric: Mood and Affect: Mood normal. Mood is not anxious or depressed. Behavior: Behavior is cooperative. Thought Content: Thought content normal. Thought content is not paranoid or delusional. Thought content does not include homicidal or suicidal ideation. Thought content does not include homicidal or suicidal plan. Cognition and Memory: Cognition normal. Laboratory and Additional Data Reviewed: Results for orders placed or performed in visit on 10/02/20 VITAMIN B12 Result Value Ref Range VITAMIN B12 541 239 - 931 PG/ML VITAMIN D (25-HYDROXY,TOTAL) Result Value Ref Range VITAMIN D 25 HYDROXY 27.2 NG/ML TSH W/FT4 REFLEX Result Value Ref Range TSH, Reflex FT4 0.911 0.46 - 4.68 uIU/ML POCT ALERE DRUG SCREEN Result Value Ref Range Marijuana (THC), poct Negative COCAINE (NADIRA), POCT Negative Opiate (OPI), poct Negative Methamphetamine (mAMP/MET), poct Negative Amphetamine (AMP), poct Negative Barbiturates (BAR), poct Negative Methadone (MTD), poct Negative Ecstasy (MDMA), poct Negative Oxycodone (OXY), poct Negative Phencyclidine (PCP), poct Negative Propoxyphene (PPX), poct Negative OXAZEPAM (BZO),POCT Negative Buprenorphine Glucuronide (BUPG),poct Positive Nortripyline (TCA), poct Negative No images are attached to the encounter. Assessment and Plan: Christine Salcido is a 20 y.o. female that presents for follow up. Current management with Zubsolv 2.9 mg 2 x per day. Does not feel that the current dose is appropriate. Feels that the AM dose could be increased. The evening dose seems to be ok. Is feeling symptoms on the current dose. -will increase Zubsolv to 5.7 in the AM and 2.9 in the evening. -UDS as noted. Pos for BUP. Appropriate and compliant. Neg for anything else. -OARRS reviewed. Appropriate and compliant. Consoling is with [facility]. Will cont with them. subj compliant but not report in the system received yet. -aware will need to remain active in consoling to be active in the program. BW reviewed Vit D - low suggested to begin supplementation Vit b12 WNL TSH- WNL Fu in 2 wk -MAT Call the office for any questions or concerns. I did have discussion that if any medications are not covered or is not able to get the medications to call the office and let us know so other alternative/arrangements can be made. Christine was seen today for medication management. Diagnoses and all orders for this visit: Opioid dependence in remission - Buprenorphine HCl-Naloxone HCl (Zubsolv) 5.7-1.4 MG Tab SL; Place 1 tablet under tongue daily every morning for 14 days. - Buprenorphine HCl-Naloxone HCl (Zubsolv) 2.9-0.71 MG Tab SL; Place 1 tablet under tongue every evening at 6 PM for 14 days. - POCT ALERE DRUG SCREEN Encounter for long-term opiate analgesic use - Buprenorphine HCl-Naloxone HCl (Zubsolv) 5.7-1.4 MG Tab SL; Place 1 tablet under tongue daily every morning for 14 days. - Buprenorphine HCl-Naloxone HCl (Zubsolv) 2.9-0.71 MG Tab SL; Place 1 tablet under tongue every evening at 6 PM for 14 days. - POCT ALERE DRUG SCREEN Vitamin D deficiency - Vitamin D3 125 MCG (5000 UT) per tablet; Take 1 tablet by mouth daily. - Vit-Fe Fumarate-FA ( Plus) 27-1 MG tablet; Take 1 tablet by mouth daily. TAMICA Zavaleta documented in this encounter* Radha Benavides APRN-CNP - 10/23/2020 11:10 AM EDT Follow Up Visit Christine Salcido [id number] 2000 10/23/2020 Chief Complaint Patient presents with Medication Management opioid dependence in remission History of Present Illness: Christine Salcido is a 20 y.o. female presenting for follow up for MAT. Current management is with Zubsolv 5.7 mg in the AM and 2.9 mg in the evening. Taking as prescribed. Denies any cravings, but will get triggers and start thinking about using but not very often. No SE. Denies reason to have red flags, diversion, or aberrant behaviors. Denies any use of any other illicit substance. Doing well on the current dose. No problems or concerns expressed. Feels that current management is helping. Dose seems appropriate. Feels that she is doing well. Consoling- is stated to be compliant. States going to [facility]. Attending as set up and directed by the consoling center. Aware the need to remain compliant in consoling while active inthe MAT program. Aware to have the consoling center send reports to the office. -just had consoling earlier today. Reviewed bw: Hep A- pos. Has had vaccination in the past. Hep B- Neg. Had first vaccination but not the second dose. First dose was around mar-jun. Hep C- neg. The rest of the bw reviewed and WNL. Vit D - low TSH - WNL by more on the Hper end B12 WNL History: Past Medical History: Diagnosis Date Anxiety Bipolar 1 disorder Drug abuse in remission GERD (gastroesophageal reflux disease) Stomach ulcer Past Surgical History: Procedure Laterality Date COLONOSCOPY DIAGNOSTIC 2010 BRONCHOSCOPY FLEXIBLE DIAGNOSTIC 2010 2017 History reviewed. No pertinent family history. Social History Socioeconomic History Marital status: Single Spouse name: Not on file Number of children: Not on file Years of education: Not on file Highest education level: Not on file Occupational History Not on file Tobacco Use Smoking status: Current Every Day Smoker Years: 7.00 Types: Cigarettes Smokeless tobacco: Never Used Tobacco comment: <1 pack daily 10/02/20 Substance and Sexual Activity Alcohol use: Not Currently Drug use: Not Currently Comment: Prescribed Zubsolv Sexual activity: Not Currently Partners: Male Other Topics Concern Not on file Social History Narrative Not on file Social Determinants of Health Financial Resource Strain: Difficulty of Paying Living Expenses: Not on file Food Insecurity: Worried About Running Out of Food in the Last Year: Not on file Ran Out of Food in the Last Year: Not on file Transportation Needs: Lack of Transportation (Medical): Not on file Lack of Transportation (Non-Medical): Not on file Physical Activity: Days of Exercise per Week: Not on file Minutes of Exercise per Session: Not on file Stress: Feeling of Stress : Not on file Social Connections: Frequency of Communication with Friends and Family: Not on file Frequency of Social Gatherings with Friends and Family: Not on file Attends Mandaen Services: Not on file Active Member of Clubs or Organizations: Not on file Attends Club or Organization Meetings: Not on file Marital Status: Not on file Intimate Partner Violence: Fear of Current or Ex-Partner: Not on file Emotionally Abused: Not on file Physically Abused: Not on file Sexually Abused: Not on file Social History Tobacco Use Smoking Status Current Every Day Smoker Years: 7.00 Types: Cigarettes Smokeless Tobacco Never Used Tobacco Comment <1 pack daily 10/02/20 Social History Substance and Sexual Activity Alcohol Use Not Currently Social History Substance and Sexual Activity Drug Use Not Currently Comment: Prescribed Zubsolv Allergies: Patient has no known allergies. Home Medications: Current Outpatient Medications: Buprenorphine HCl-Naloxone HCl (Zubsolv) 2.9-0.71 MG Tab SL, Place 1 tablet under tongue every evening at 6 PM for 14 days., Disp: 14 tablet, Rfl: 0 Buprenorphine HCl-Naloxone HCl (Zubsolv) 5.7-1.4 MG Tab SL, Place 1 tablet under tongue daily everymorning for 14 days., Disp: 14 tablet, Rfl: 0 ketoconazole 2 % Shampoo shampoo, Apply 1 Application topically 3 times weekly. Apply topically to wet hair 3-4 times a week, Disp: 120 mL, Rfl: 0 lamoTRIgine 100 MG tablet, Take 100 mg by mouth daily., Disp: , Rfl: omeprazole [address] capsule, Take 20 mg by mouth 2 times daily., Disp: , Rfl: Vit-Fe Fumarate-FA ( Plus) 27-1 MG tablet, Take 1 tablet by mouth daily., Disp: 90tablet, Rfl: 0 QUEtiapine 100 MG tablet, TAKE 1 TABLET BY MOUTH EVERYDAY AT BEDTIME, Disp: , Rfl: Vitamin D3 125 MCG (5000 UT) per tablet, Take 1 tablet by mouth daily., Disp: 90 tablet, Rfl: 0 naloxone 4 MG/0.1ML, 1 spray by Nasal route once for 1 dose., Disp: 1 Bottle, Rfl: 0 ROS: Review of Systems Constitutional: Negative for activity change, appetite change, diaphoresis, fatigue and fever. Respiratory: Negative for cough, chest tightness, shortness of breath and wheezing. Cardiovascular: Negative for chest pain, palpitations and leg swelling. Gastrointestinal: Negative for abdominal pain, constipation, diarrhea, nausea and vomiting. Skin: Negative for color change, rash and wound. Neurological: Negative for dizziness, tremors, facial asymmetry, weakness, light-headedness and headaches. Psychiatric/Behavioral: Negative for agitation, sleep disturbance and suicidal ideas. The patient is not nervous/anxious and is not hyperactive. Physical Examination: Vital Signs: BP 116/68 (BP Location: Left arm, BP Position: Sitting) Pulse 85 Temp 98.6 F (37 C) (Temporal) Ht 1.575 m (5' 2 ) Wt 57.6 kg (127 lb) SpO2 97% BMI 23.23 kg/m Smoking Status Current Every Day Smoker Physical Exam Constitutional: General: She is awake. Appearance: Normal appearance. Cardiovascular: Rate and Rhythm: Normal rate. Pulses: Normal pulses. No decreased pulses. Pulmonary: Effort: Pulmonary effort is normal. No accessory muscle usage, prolonged expiration or respiratory distress. Musculoskeletal: Right lower leg: No edema. Left lower leg: No edema. Skin: General: Skin is warm and dry. Capillary Refill: Capillary refill takes less than 2 seconds. Neurological: Mental Status: She is alert and oriented to person, place, and time. Sensory: Sensation is intact. Motor: Motor function is intact. Coordination: Coordination is intact. Gait: Gait is intact. Psychiatric: Mood and Affect: Mood normal. Mood is not anxious or depressed. Behavior: Behavior is cooperative. Thought Content: Thought content normal. Thought content is not paranoid or delusional. Thought content does not include homicidal or suicidal ideation. Thought content does not include homicidal or suicidal plan. Cognition and Memory: Cognition normal. Laboratory and Additional Data Reviewed: Results for orders placed or performed in visit on 10/23/20 POCT ALERE DRUG SCREEN Result Value Ref Range Marijuana (THC), poct Negative COCAINE (NADIRA), POCT Negative Opiate (OPI), poct Negative Methamphetamine (mAMP/MET), poct Negative Amphetamine (AMP), poct Negative Barbiturates (BAR), poct Negative Methadone (MTD), poct Negative Ecstasy (MDMA), poct Negative Oxycodone (OXY), poct Negative Phencyclidine (PCP), poct Negative Propoxyphene (PPX), poct Negative OXAZEPAM (BZO),POCT Negative Buprenorphine Glucuronide (BUPG),poct Positive Nortripyline (TCA), poct Negative No images are attached to the encounter. Assessment and Plan: Christine Salcido is a 20 y.o. female that presents for follow up. Current management with Zubsolv 5.7 mg in the AM and 2.9 mg in the evening. Does feel that the current dose is appropriate. No se from the meds. Is taking as prescribed. No red flags. No diversion. -UDS as noted. Pos for BUP. Appropriate and compliant. Neg for anything else. -OARRS reviewed. Appropriate and compliant. Consoling is with [facility]. Will cont with them. subj compliant but not report in the system received yet. -aware will need to remain active in consoling to be active in the program. BW reviewed Vit D - low suggested to begin supplementation Vit b12 WNL TSH- WNL Fu in 2 wk -MAT -? Hep B vaccination series? Call the office for any questions or concerns. I did have discussion that if any medications are not covered or is not able to get the medications to call the office and let us know so other alternative/arrangements can be made. Christine was seen today for medication management. Diagnoses and all orders for this visit: Opioid dependence in remission - Buprenorphine HCl-Naloxone HCl (Zubsolv) 5.7-1.4 MG Tab SL; Place 1 tablet under tongue daily every morning for 14 days. - Buprenorphine HCl-Naloxone HCl (Zubsolv) 2.9-0.71 MG Tab SL; Place 1 tablet under tongue every evening at 6 PM for 14 days. - POCT ALERE DRUG SCREEN Encounter for long-term opiate analgesic use - Buprenorphine HCl-Naloxone HCl (Zubsolv) 5.7-1.4 MG Tab SL; Place 1 tablet under tongue daily every morning for 14 days. - Buprenorphine HCl-Naloxone HCl (Zubsolv) 2.9-0.71 MG Tab SL; Place 1 tablet under tongue every evening at 6 PM for 14 days. - POCT ALERE DRUG SCREEN TAMICA Zavaleta documented in this encounter Reason for Referral Specialty Diagnoses / Procedures Referred By Hilaria waterman Referred To Contact Diagnoses Opioid dependence in remission Encounter for long-term opiate analgesic use , unspecified gestational age Radha Benavides APRN-CNP [address] [place] [address] Referral ID Status Reason Start Date Expiration Date Visits Re quested Visits Authorized [id number] Closed 1 1 Referral ID Status Reason Start Date Expiration Date Visits Re quested Visits Authorized [id number] Closed 1 1 Specialty Diagnoses / Procedures Referred By Hilaria waterman Referred To Contact Diagnoses Opioid dependence in remission Encounter for long-term opiate analgesic use Radha Benavides APRN-[employer] [address] [place] [address] Referral ID Status Reason Start Date Expiration Date Visits Re quested Visits Authorized [id number] Closed 1 1 Referral ID Status Reason Start Date Expiration Date Visits Re quested Visits Authorized [id number] Closed 1 1 Referral ID Status Reason Start Date Expiration Date Visits Re quested Visits Authorized [id number] Closed 1 1 Referral ID Status Reason Start Date Expiration Date Visits Re quested Visits Authorized [id number] Closed 1 1 Additional Source Comments INFORMATION SOURCE (unrecogn ized section and content) DATE CREATED AUTHOR 08/31/2018 [facility] DATE CREATED AUTHOR AUTHOR'S ORGANIZ ATION 10/23/2018 [facility] DATE CREATED AUTHOR AUTHOR'S ORGANIZ ATION 03/26/2021 [facility] DATE CREATED AUTHOR AUTHOR'S ORGANIZ ATION 10/03/2021 [facility] DATE CREATED AUTHOR AUTHOR'S ORGANIZ ATION 05/12/2022 [facility] DATE CREATED AUTHOR AUTHOR'S ORGANIZ ATION 05/20/2022 [facility] DATE CREATED AUTHOR AUTHOR'S ORGANIZ ATION 08/23/2022 [facility] DATE CREATED AUTHOR AUTHOR'S ORGANIZ ATION 10/25/2023 [facility] Reason for Visit (unrecogniz ed section and content) Reason Comments Head Injury patient slipped gett ing out of top bunk of bunk bed about 2 hours ago hit right side head on ground. NO LOC Reason Comments Urinary Tract Infection Pt states that s he's had urinary urgency, frequency, dysuria and some sligh itching; Also states normal vaginal discharge and denies any vaginal ordor; Reason Comments Flank Pain right flank/abdomina l pain x1 week- started with vaginal bleeding/clots yesterday- hx constipation Reason Comments Headache headache, cough, darryn ateral pain and nausea x 3 days Otalgia Nausea Cough productive with gree n mucus Reason Comments Establish [facility] MAT Appt. Reason Comments Medication Management opioid dependence. Pt states Zubsolv was supposed to be 5.4 and only 2.9 was sent to pharmacy and wants to discuss with PCP Reason Comments Medication Management opioid dependence in remission Reason Comments Medication Management opioid dependence Reason Comments Headache headache, fatigue, l oss of taste, x 3 days, no known exposure Reason Comments Abdominal Pain Pt C/O abdominal scrap charger mping x 2.5 hrs. Reason Comments Abdominal Pain pt reports abdominal cramping this am, had bm, noticed bright red blood on TP when wiping. pt reports being 17 weeks at this time. sees dr ovalle, confirmed in [place] with ultrasound has been established. pt is unsure where bleeding came from. Reason Comments Otalgia left ear pain x 3 da ys, throat sore x 4 days. Hx of strep and ear infections Reason Comments Medication Management opioid dependence in remission Reason Comments Medication Management opioid dependence Other FYI: Pt states since last OV she was dx with gestational diabetes and was told hemoglobin is super low Specialty Diagnoses / Procedures Referred By Contac t Referred To Contact Diabetes Services Diagnoses 32 weeks gestation of Abnormal glucose complicating Karlee Hassan, [employer] - CNM [address] [facility] [address] [place] [address] [facility] [address] [place] [address] Referral ID Status Reason Start Date Expiration Date V isits Requested Visits Authorized [id number] Open Specialty Services Required 09/10/2021 09/10/2022 2 2 Reason Comments Contractions Reason Comments Medication Management opioid dependence; Pt recently found out she was , Pts initial apt with OBGYN 03/10 Reason Comments Medication Management Opioid dependence. 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 Reason Comments Medication Management Opioid dependence in remission Reason Comments Medication Management Opioid dependence Reason Comments Medication Management Opioid dependence Reason Comments Addiction problem Reason Comments Immunization/Injection Specialty Diagnoses / Procedures Referred By Contac t Referred To Contact Chemotherapy Diagnoses Opioid dependence in remission Virginia Cox, DO [address] [place] [address] [facility] [address] [place] [address] Referral ID Status Reason Start Date Expiration Date Visits Re quested Visits Authorized [id number] Closed 09/16/2023 10/10/2024 1 1 Care Teams (unrecognized sec tion and content) Physics Faculty Member Relationship Specialty Start Date End Date Marianne Tucker Janet, [employer] [address] [place] [address] PCP - General Nurse Practitioner 03/25/21 Physics Faculty Member Relationship Specialty Start Date End Date Keiry Janet Clark, [employer] - [employer] [address] [place] [address] PCP - General Specialist 08/07/18 Physics Faculty Member Relationship Specialty Start Date End Date Janet Ricci, [employer] - [employer] [address] [place] [address] PCP - General Specialist 08/07/18 Physics Faculty Member Relationship Specialty Start Date End Date Radha Benavides, [employer] [address] [place] [address] PCP - General Family Medicine 09/25/20 Physics Faculty Member Relationship Specialty Start Date End Date Janet Ricci, [employer] - [employer] [address] [place] [address] PCP - General Specialist 08/07/18 Physics Faculty Member Relationship Specialty Start Date End Date Janet Ricci, [employer] - [employer] [address] [place] [address] PCP - General Specialist 08/07/18 Physics Faculty Member Relationship Specialty Start Date End Date Janet Ricci, [employer] - [employer] [address] [place] [address] PCP - General Specialist 08/07/18 Physics Faculty Member Relationship Specialty Start Date End Date Janet Ricci, [employer] - [employer] [address] [place] [address] PCP - General Specialist 08/07/18 Physics Faculty Member Relationship Specialty Start Date End Date Janet Ricci, [employer] - [employer] [address] [place] [address] PCP - General Specialist 08/07/18 Physics Faculty Member Relationship Specialty Start Date End Date Radha Benavides, [employer] [address] [place] [address] PCP - General Family Medicine 09/25/20 Physics Faculty Member Relationship Specialty Start Date End Date Radha Benavides, [employer] [address] [place] [address] PCP - General Family Medicine 09/25/20 Physics Faculty Member Relationship Specialty Start Date End Date Radha Benavides, [employer] [address] [place] [address] PCP - General Family Medicine 09/25/20 Physics Faculty Member Relationship Specialty Start Date End Date Radha Benavides, [employer] [address] [place] [address] PCP - General Family Medicine 09/25/20 Physics Faculty Member Relationship Specialty Start Date End Date Radha Benavides, [employer] [address] [place] [address] PCP - General Family Medicine 09/25/20 Physics Faculty Member Relationship Specialty Start Date End Date Janet Ricci, [employer] - [employer] [address] [facility] [place] [address] PCP - General Specialist 08/07/18 Physics Faculty Member Relationship Specialty Start Date End Date Radha Benavides, [employer] [address] [place] [address], [place] [address] PCP - General Family Medicine 09/25/20 Ordered Prescriptions (unrec ognized section and content) Prescription Sig Dispensed Refills Start Date End Da te cephALEXin (SANDRAFLEX) 500 MG capsule Take 1 capsule by mouth 3 times daily 15 capsule 0 04/08/2021 Scheduled Active and Recently Administ ered Medications (unrecognized section and content) Medication Order 04/06/2021 04/07/2021 04/08/2021 cephALEXin (KEFLEX) capsule 500 mg (COMPLETED) 500 mg, Oral, ONCE, On 04/08/21 at 0445, For 1 dose 0445 (Given - Provid er: Manuel Mcgowan RN) Scheduled Medication Order 10/13/2021 10/14/2021 10/15/2021 amoxicillin (AMOXIL) capsule 500 mg (COMPLETED) 500 mg, Oral, ONCE, 1 dose, On Deisi 10/15/21 at 2215, Antimicrobial Indications: Urinary Tract Infection 4 (Given - Provid er: Estephanie Coates RN) FOR RECORDS PERTAINING TO PATIENTS WHO ARE OR HAVE BEEN ENROLLED IN A CHEMICAL DEPENDENCY/SUBSTANCEABUSE PROGRAM, SOME INFORMATION MAY BE OMITTED. This clinical summary was aggregated from multiple sources. Caution should be exercised in using it in the provision of clinical care. This summary normalizes information from multiple sources, and as a consequence, information in this document may materially change the coding, format and clinical context of patient data. In addition, data may be omitted in some cases. CLINICAL DECISIONS SHOULD BE BASED ON THE PRIMARY CLINICAL RECORDS. [email or web address] provides no warranty or guarantee of the accuracy or completeness of information in this document.
== END 2023-10-31 21:35 | disposition home or self-care (01) ==
LOC: ER 21:28
PROVIDERS: Emergency Provider Emergency Medicine; PCP Nurse Practitioner
DX: K02.9 Dental caries, unspecified (principal); K08.89 Other specified disorders of teeth and supporting structures
CPT/HCPCS: 99284

== ENCOUNTER 2024-01-09 09:33 | Emergency (ER) | payer OTHER, SELFPAY ==
[2024-01-09 09:40] VITALS: BP 112/75; PULSE 81; TEMP 37; O2SAT 99; BMI 23.2
--- NOTE | 2024-01-09 09:51 | ED.DENTAL1 ---
HPI - Dental/Oral General Chief complaint: Dental/Oral Stated complaint: MOUTH/EAR PAIN Time Seen by Provider: 01/09/24 09:38 Source: patient Mode of arrival: walk-in Limitations: no limitations History of Present Illness HPI Narrative: 23-year-old female presents for dental and ear pain. She has pain on the left upper dentition and it goes to her left ear. She has some mild pain on the right side as well and that goes to the right ear, but the left side is worse. She is scheduled to have 7 teeth extracted on February 15. The pain is moderate and continuous and aching and she was worried about having an infection. She had similar circumstances a few months ago and received a shot of Toradol and a prescription for penicillin and it seemed to help. Related Data Home Medications ?Medication ?Instructions ?Recorded ?Confirmed buprenorphine 300 mg/1.5 mL mg subcut 01/09/24 solution,exten.rel.subcutaneous syringe (Sublocade) gabapentin 300 mg capsule mg 01/09/24 omeprazole 20 mg capsule,delayed mg 01/09/24 release Previous Rx's ?Medication ?Instructions ?Recorded penicillin V potassium 500 mg 500 mg PO TID 10 days #30 tabs 10/31/23 tablet penicillin V potassium 250 mg 250 mg PO QID 10 days #40 tabs 01/09/24 tablet Allergies Allergy/AdvReac Type Severity Reaction Status Date / Time No Known Drug Allergies Allergy Verified 01/09/24 09:44 Review of Systems ROS Narrative A ten point review of systems is negative except as noted above. Exam Narrative Exam Narrative: Nurses note and vital signs reviewed and patient is not hypoxic. General: The patient appears well and in no apparent distress. Patient is resting comfortably on cart. Skin: Warm, dry, no pallor noted. There is no rash noted. Head: Normocephalic, atraumatic Eye: Normal conjunctiva, no drainage, EOMI. PERRL Ears, Nose, Mouth, and Throat: oral mucosa is moist. Nares patent. Left maxillary wisdom tooth is decayed. No bleeding or pus present. No gingival swelling or erythema. Both TMs and both external canals are normal in appearance Cardiovascular: Regular Rate and Rhythm Respiratory: Patient is in no distress, no accessory muscle use, lungs are clear to auscultation, no wheezing, rales or rhonchi Back: non-tender GI: Soft and nontender Musculoskeletal: The patient has no evidence of calf tenderness, no pitting edema, symmetrical pulses noted bilaterally Neurological: A&O, normal speech Psychiatric: Cooperative Constitutional Vital Signs, click to edit/add: Last Vital Signs Temp 98.6 F 01/09/24 09:40 Pulse 81 01/09/24 09:40 Resp 20 01/09/24 09:40 BP 112/75 01/09/24 09:40 Pulse Ox 99 01/09/24 09:40 O2 Del Method Room Air 01/09/24 09:40 Course Vital Signs Vital signs: Vital Signs Temperature 98.6 F 01/09/24 09:40 Pulse Rate 81 01/09/24 09:40 Respiratory Rate 20 01/09/24 09:40 Blood Pressure 112/75 01/09/24 09:40 Pulse Oximetry 99 01/09/24 09:40 Oxygen Delivery Method Room Air 01/09/24 09:40 Temperature 98.6 F 01/09/24 09:40 Pulse Rate 81 01/09/24 09:40 Respiratory Rate 20 01/09/24 09:40 Blood Pressure 112/75 01/09/24 09:40 Pulse Oximetry 99 01/09/24 09:40 Oxygen Delivery Method Room Air 01/09/24 09:40 MDM - Dental/Oral MDM Narrative Medical decision making narrative: No evidence of ear infection. She was given IM Toradol and prescribed penicillin and she will have her teeth extracted on February 15. Treatment diagnosis and follow-up were discussed with the patient. Differential Diagnosis Differential diagnosis: Likely gingival abscess, dental caries, toothache, dental abscess and other (Otitis media, otitis externa) Discharge Plan Discharge Stand Alone Forms: Portal Instructions Chief Complaint: Dental/Oral Clinical Impression: Toothache, Dental caries Patient Disposition: Home, Self-Care Time of Disposition Decision: 09:50 Condition: Good Mode of Transportation: Private Vehicle Prescriptions / Home Meds: New penicillin V potassium 250 mg tablet 250 mg PO QID 10 Days Qty: 40 0RF No Action gabapentin 300 mg capsule omeprazole 20 mg capsule,delayed release(DR/EC) Sublocade 300 mg/1.5 mL solution, extended rel syringe SUBCUT penicillin V potassium 500 mg tablet 500 mg PO TID 10 Days Qty: 30 0RF Print Language: Romansh Instructions: Toothache (ED) Referrals: ALYSSA RICCI [Primary Care Provider] - 1 week
--- OUTSIDE RECORDS SUMMARY | 2024-01-09 09:59 | XMS_ITS | CCD ---
Author Organization [facility] Care Team Providers Care Application Security Architect Name Role Phone KEIRY, JANET R Admitting Unavailable KEIRY, JANET R Attending Unavailable KEIRY, JANET R Primary Care Unavailable KEIRY, JANET R Consulting Unavailable Harshal Car Admitting Unavailable Harshal Car Attending Unavailable Keiry, Janet R Primary Care Unavailable Keiry, Janet R Primary Care Provider [phone] Keiry, Janet R Primary Care Provider Radha Benavides Primary Care Provider [phone] Radha Benavides Primary Care Provider Kennedy EUCEDAN-RADIOLOGISTRadha Primary Care Provider Kennedy QUICK-Radha BRODY Primary Care Provider Keiry ASSISTANT TECHNICIAN - Janet BRODY Primary Care Provider [phone] Marianne Tucker CNP Primary Care Provider MARIANNE [...] KEIRY, JANET R Primary Care Unavailable Kennedy ASSISTANT TECHNICIAN-Radha BRODY Primary Care Provider SELF, SELF Referring [...] Unavailable BENAVIDES, RADHA L Attending Unavailable Keiry ASSISTANT TECHNICIAN - RADIOLOGIST, Janet Clark Primary Care Provider POOL, KARLEE [...] KEIRY, JANET R Primary Care Unavailable Benavides ASSISTANT TECHNICIAN-RADIOLOGIST, Radha L Primary Care Provider Virginia COX Attending Unavailable KENNY, P. MAJOR Referring Unavailable BENAVIDES, RADHA Mio Primary Care Unavailable SELF, SELF Referring Unavailable KENNY, P. MAJOR Attending Unavailable BENAVIDESRADHA Primary Care Unavailable KENNY, P. MAJOR Referring Unavailable KENNY, P. MAJOR Attending Unavailable BENAVIDES, RADHA L Primary Care Unavailable BENAVIDES, RADHA L Primary Care Unavailable KENNY, P. MAJOR Referring Unavailable KENNY, P. MAJOR Attending Unavailable SELF, SELF Referring Unavailable KENNY, P. MAJOR Attending Unavailable BENAVIDES, RADHA Lieberman Primary Care Unavailable SELF, SELF Referring Unavailable KENNY, P. MAJOR Attending Unavailable BENAVIDES, RADHA L Primary Care Unavailable KENNY, P. MAJOR Referring Unavailable KENNY, P. MAJOR Attending Unavailable BENAVIDES, RADHA Lieberman Primary Care Unavailable KENNY, P. MAJOR Attending Unavailable KENNY, P. MAJOR Referring Unavailable BENAVIDES, RADHA L Primary Care Unavailable KENNY, P. MAJOR Referring Unavailable KENNY, P. MAJOR Attending Unavailable BENAVIDES, RADHA Lieberman Primary Care Unavailable KENNY, P. MAJOR Attending Unavailable KENNY, P. MAJOR Referring Unavailable BENAVIDESRADHA L Primary Care Unavailable KENNY, P. MAJOR Referring Unavailable KENNY, P. MAJOR Attending Unavailable RADHA BENAVIDES Primary Care Unavailable Allergies Allergy Classification Reported Allergen(s) Allergy Type Date of Onset Reaction(s) Facility (1 source) Lactose Drug Allergy 06-20-2014 [facility] Repository (1 source) Lactose Drug Allergy 10-16-2018 [facility] Repository (1 source) Lactose Drug Allergy 09-25-2020 [facility] Medications Current Medications Medication Drug Class(es) Dates [...] syringe (20 sources) Partial Opioid Agonist Start: 11-29-2023 End: 11-29-2023 300 mg, Subcutaneous, ONCE, 1 dose, On Tue11/29/23 at 1430, For abdominal subcutaneous (SQ) injection only. Do not administer IV or IM. Allow at least 15 minutes to warm to room temperature prior to injection. Administer each injection only using the syringe and safety needle included with the product. Start: 08-23-2023 End: 11-01-2023 300 mg, Subcutaneous, ONCE, 1 dose, On Tue11/01/23 at 1345, For abdominal subcutaneous (SQ) injection only. Do [...] 30 tablet 0 06/16/2021 07/16/2021 Active buprenorphine 2 mg / naloxone 0.5 mg sublingual film (20 sources) Partial Opioid Agonist, Opioid Antagonist Start: 11-14-2023 buprenorphine 2 mg/naloxone 0.5 mg (SUBOXONE) SL film Indications: Opioid dependence in remission , Opioid dependence with withdrawal Place 2 strips under tongue daily for 5 days. Dissolve under tongue 10 strip 11/14/2023 Active Start: 10-14-2023 buprenorphine 2 mg/naloxone 0.5 mg (SUBOXONE) SL film Indications: Opioid dependence in remission , Opioid dependence with withdrawal Place 2 strips under tongue daily for 5 days. Dissolve under tongue 10 strip 10/14/2023 Active Start: 02-27-2021 End: 05-24-2021 Buprenorphine HCl-Naloxone H Cl (ZUBSOLV) 5.7-1.[address] [...] 04/08/2021 Active cholecalciferol 0.05 mg oral tablet (14 sources) Vitamin D Start: 09-16-2023 End: 10-14-2023 take 1 tablet by mouth once daily cholecalciferol 50 MCG (2000 UNIT) tablet Indications: Vitamin D deficiency Take 1 tablet by mouth daily. 28 tablet 2 09/16/2023 Active Start: 10-09-2020 End: 04-08-2021 take 1 tablet by mouth once daily vitamin D3 (CHOLECALCIFEROL) 125 MCG (5000 UT) TABS tablet Take 5,000 Units by mouth daily 0 10/09/2020 04/08/2021 Discontinued (Therapy completed) 12 hr dextromethorphan hydrobromide 30 mg / guaiFENesin 600 mg extended release oral tablet (3 sources) Uncompetitive L-sgundp-W-aspartate Receptor Antagonist, Sigma-1 Agonist Start: 01-22-2020 End: [...] 1 tablet by mouth once daily at [facility] ferrous sulfate (IRON 325) 325 (65 Fe) [...] 12/15/2021 Active gabapentin 300 mg oral capsule (3 sources) Anti-epileptic Agent Start: 11-14-2023 take 1 capsule by mouth three times daily Gabapentin 300 MG capsule Indications: Sciatica of left side Take 1 capsule by mouth 3 times daily for 14 days. 42 capsule 1 11/14/2023 Active Start: 10-14-2023 take 1 capsule by mo [facility] three times daily Gabapentin 300 MG capsule Indications: Sciatica of left side Take 1 capsule by mouth 3 times daily for 14 days. 42 capsule 1 10/14/2023 Active Start: 09-16-2023 End: 09-30-2023 take 1 capsule by mouth three times daily Gabapentin 300 MG capsule Indications: Sciatica of left side Take 1 capsule by mouth 3 times daily for 14 days. 42 capsule 1 09/16/2023 09/30/2023 Active glucose monitoring (FREESTYLE FREEDOM) kit (6 sources) Start: 09-10-2021 glucose monito ring (FREESTYLE FREEDOM) kit Indications: Impaired glucose in , [...] by Nasal route once for 1 dose. [place] into the nose as directed. Call 911. If no response in 2 minutes use a new nasal spray in other nostril. Repeat until help arrives. 1 Each 09/16/2023 Active Start: 10-13-2021 End: 10-13-2021 naloxone 4 MG/0.1ML Indicati ons: Opioid dependence in remission , Encounter for long-term opiate analgesic use 1 spray by Nasal route once for 1 dose. [place] into the nose as directed. Call 911. [...] daily as needed. 56 capsule 2 09/16/2023 Active Start: 01-22-2020 End: 02-21-2020 take 1 [...] bedtime as needed. 28 tablet 2 09/16/2023 Active Start: 07-31-2021 take 1 tablet by [...] CLEANUP) selenium sulfide 22.5 mg/ml medicated shampoo (3 sources) Start: 09-16-2023 Selenium Sulfide 2.25 % Shampoo [...] MG tablet (7 sources) Start: 10-09-2020 End: 01-29-2021 take 1 tablet by mouth once daily Vit-Fe Fumarate-FA ( Plus) 27-1 MG tablet Indications: Vitamin D deficiency Take 1 tablet by mouth daily. 90 tablet 0 10/09/2020 01/29/2021 Discontinued Start: 10-09-2020 take 1 tablet by juice once daily Vit-Fe Fumarate-FA ( Plus) 27-1 [...] infection; Translations: [Chlamydia infection] Episodic Esophageal disorders (5 sources) Gastroesophageal reflux disease; Translations: [Gastro-esophageal reflux [...] [Amenorrhea, unspecified] Chronic Miscellaneous mental health disorders (5 sources) Primary insomnia; Translations: [Primary insomnia] Onset: 4 09-16-2023 Chronic Mood disorders (20 sources) Major depression, single episode; Translations: [Bipolar I disorder] Onset: 9 10-01-2019 Chronic Nutritional deficiencies (6 sources) Vitamin D deficiency; Translations: [Vitamin D [...] 2 Episodic Other inflammatory condition of skin (3 sources) Pityriasis simplex; Translations: [Seborrhea capitis] Onset: 4 [...] Spondylosis; intervertebral disc disorders; other back problems (5 sources) Sciatica; Translations: [Sciatica, left side] Onset: [...] screening status; Translations: [Screening for cervical cancer] Unclassified (1 source) Patient's noncompliance with other medical treatment and regimen due to unspecified reason; Translations: [Patient's noncompliance with other medical treatment and regimen due to unspecified reason] Onset: 4 Urinary tract infections (2 sources) Acute cystitis; Translations: [Acute cystitis with hematuria] Episodic Viral infection (2 sources) COVID-19; Translations: [COVID-19] Onset: 2 Past or Other Problems Problem Classification Problem Date Documented Date Episodic/Chronic Administrative/social admission (20 sources) 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; 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] Onset: 10-01-2019 [...] encounter] Onset: 10-01-2019 10-01-2019 Episodic Mood disorders (4 sources) Major depressive disorder, single episode, unspecified; Translations: [Mood disorders] Onset: 08-16-2018 09-16-2023 Mycoses (18 sources) Candidiasis of vagina; Translations: [Candidiasis of vulva and vagina] Onset: 10-01-2019 Resolved: 12-15-2021 10-01-2019 Episodic Other aftercare (2 sources) group home (current) use of opiate analgesic; Translations: [group home (current) use of opiate analgesic] Onset: [...] trimester] Onset: 09-10-2021 Resolved: 12-15-2021 09-10-2021 Episodic Unclassified (1 source) Patient's noncompliance with other medical treatment and regimen due to unspecified reason; Translations: [Patient's noncompliance with other medical treatment and regimen due to unspecified reason] Onset: 11-11-2023 Results Test Name Value Interpretation Reference Range Facility HEPATIC FUNCTION PANELon Albumin [Mass/Vol] 4.6 g/dL [facility] ALP [Catalytic activity/Vol] 56 U/L [facility] ALT [Catalytic activity/Vol] 15 U/L NINF [facility] AST [Catalytic activity/Vol] 26 U/L [facility] Bilirubin [Mass/Vol] 0.5 mg/dL [facility] Bilirubin.direct [Mass/Vol] 0.2 mg/dL [facility] Protein [Mass/Vol] 8.1 g/dL [facility] LIVER PANELon 11-29-2023 Albumin [Mass/Vol] 4.6 g/dL Normal 3.5-5.0 [facility] ALP [Catalytic activity/Vol] 56 U/L Normal 38-126 [facility] ALT [Catalytic activity/Vol] 15 U/L Normal <35 [facility] AST [Catalytic activity/Vol] 26 U/L Normal 14-36 [facility] Bilirubin [Mass/Vol] 0.5 mg/dL Normal 0.2-1.3 [facility] Bilirubin.indirect [Mass/Vol] 0.2 mg/dL Normal 0-0.4 [facility] Protein [Mass/Vol] 8.1 g/dL Normal 6.3-8.2 [facility] Chlamydia/GC,DNA Ampon 08-23 Chlamydia Probe Negative Normal NEG [facility] Comment on above: Result Comment: CHLA [...] nucleic acid target. Performed By: #### [facility] #### [employer] [facility] [place] [address] Coremaker Experimental: Isak Guerrero MD Gonorrhea Probe Negative Normal NEG [facility] Comment on above: Result Comment: NEIS [...] target. Performed By: #### S [facility] #### [facility] [address] [place] [address] Coremaker Experimental: Isak Guerrero MD Trichomonas/Wet Prepon 08-20 Trichomonas/Wet Prep Specimen Descriptio n .VAGINAL SPECIMEN Direct Exam NO YEAST OBSERVED NO TRICHOMONAS SEEN CLUE CELLS SEEN Report Status FINAL 08/20/2022 Normal [facility] Comment on above: Performed By: #### W P #### [facility] [address] [place] [address] Coremaker Experimental: Harshal Austin MD Wet prep, genitalon 08-20-19 Interpretation and review of laboratory results Abnormal [facility] Microorganism or agent identified Nom (Unsp spec) NO YEAST OBSERVED [facility] Microorganism or agent identified Nom (Unsp spec) NO TRICHOMONAS SEEN [facility] Microorganism or agent identified Nom (Unsp spec) CLUE CELLS SEEN Abnormal [facility] Specimen Description .VAGINAL SPECIMEN [facility] POCT ALERE DRUG SCREENon Amphetamine (AMP), poct Negative [facility] Barbiturates (BAR), poct Negative [facility] Buprenorphine Glucuronide (BUPG),poct Positive [facility] COCAINE (NADIRA), POCT Negative [facility] Ecstasy (MDMA), poct Negative [facility] Interpretation and review of laboratory results Normal [facility] Marijuana (THC), poct Negative [facility] Comment on above: temp was 90. Methadone (MTD), poct Negative [facility] Methamphetamine (mAMP/MET), poct Negative [facility] Nortripyline (TCA), poct Negative [facility] Opiate (OPI), poct Negative [facility] OXAZEPAM (BZO),POCT Negative [facility] Oxycodone (OXY), poct Negative [facility] Phencyclidine (PCP), poct Negative [facility] Propoxyphene (PPX), poct Negative [facility] Urine was not witnes sed. All controls were present. [facility] Long-Term Documentson 03-18-2022 Long-Term Documents [id number] [facility] POCT ALERE DRUG SCREENon Amphetamine (AMP), poct Negative [facility] Barbiturates (BAR), poct Negative [facility] Buprenorphine Glucuronide (BUPG),poct Positive [facility] COCAINE (NADIRA), POCT Negative [facility] Ecstasy (MDMA), poct Negative [facility] Interpretation and review of laboratory results Normal [facility] Marijuana (THC), poct Negative [facility] Comment on above: Temp 90 urine was no t witnessed Methadone (MTD), poct Negative [facility] Methamphetamine (mAMP/MET), poct Negative [facility] Nortripyline (TCA), poct Negative [facility] Opiate (OPI), poct Negative [facility] OXAZEPAM (BZO),POCT Negative [facility] Oxycodone (OXY), poct Negative [facility] Phencyclidine (PCP), poct Negative [facility] Propoxyphene (PPX), poct Negative [facility] All internal control s were present [facility] POCT ALERE DRUG SCREENon Amphetamine (AMP), poct Negative [facility] Barbiturates (BAR), poct Negative [facility] Buprenorphine Glucuronide (BUPG),poct Positive [facility] COCAINE (NADIRA), POCT Negative [facility] Ecstasy (MDMA), poct Negative [facility] Interpretation and review of laboratory results Normal [facility] Marijuana (THC), poct Negative [...] All internal control s were present [facility] POCT ALERE DRUG SCREENon Amphetamine (AMP), poct Negative [facility] Barbiturates (BAR), poct Negative [facility] Buprenorphine Glucuronide (BUPG),poct Positive [facility] COCAINE (NADIRA), POCT Negative [facility] Ecstasy (MDMA), poct Negative [facility] Interpretation and review of laboratory results Normal [facility] Marijuana (THC), poct Negative [...] [facility] Propoxyphene (PPX), poct Negative [facility] All internal control s were present [facility] POCT ALERE DRUG SCREENon Amphetamine (AMP), poct Negative [facility] Barbiturates (BAR), poct Negative [facility] Buprenorphine Glucuronide (BUPG),poct Positive [facility] COCAINE (NADIRA), POCT Negative [facility] Ecstasy (MDMA), poct Negative [facility] Interpretation and review of laboratory results Normal [facility] Marijuana (THC), poct Negative [facility] Comment on above: temperature is 90, c ollection was not witnessed Methadone (MTD), poct Negative [facility] Methamphetamine (mAMP/MET), poct Negative [facility] Nortripyline (TCA), poct Negative [facility] Opiate (OPI), poct Negative [facility] OXAZEPAM (BZO),POCT Negative [facility] Oxycodone (OXY), poct Negative [facility] Phencyclidine (PCP), poct Negative [facility] Propoxyphene (PPX), poct Negative [facility] All internal control s are positive [facility] POCT ALERE DRUG SCREENon Amphetamine (AMP), poct Negative [facility] Barbiturates (BAR), poct Negative [facility] Buprenorphine Glucuronide (BUPG),poct Positive [facility] COCAINE (NADIRA), POCT Negative [facility] Ecstasy (MDMA), poct Negative [facility] Interpretation and review of laboratory results Normal [facility] Marijuana (THC), poct Negative [facility] Comment on above: temp 92 urine was no t witnessed Methadone (MTD), poct Negative [facility] Methamphetamine (mAMP/MET), poct Negative [facility] Nortripyline (TCA), poct Negative [facility] Opiate (OPI), poct Negative [facility] OXAZEPAM (BZO),POCT Negative [facility] Oxycodone (OXY), poct Negative [facility] Phencyclidine (PCP), poct Negative [facility] Propoxyphene (PPX), poct Negative [facility] All internal control s were present [facility] Surgical Pathologyon 022 Surgical Pathology (NOTE) [...] SURGICAL PATHOLOGY CONSULTATION Patient Name: CHRISTINE SALCIDO [facility] Rec: [id number] Path Number: [id number] [facility] ANATOMIC PATHOLOGY [address] [place] [id number] Normal [facility] Comment on above: Performed By: #### P PPVS #### [address] [address] Coremaker Experimental: Isak Guerrero MD CBC with Diffon 10-26-2021 Abs. Basophil 0.04 k/uL Normal 0.00-0.20 [facility] Comment on above: Performed By: #### C DP #### [facility] [address] [place] [address] [place] [address] Coremaker Experimental: Harshal Austin MD Abs.Imm.Granulocyte 0.08 k/uL Normal 0.00-0.30 [facility] Comment on above: Performed By: #### C DP #### [facility] [address] [place] [address] Coremaker Experimental: Harshal Austin MD Abs.Neutrophil (Seg) 4.94 k/uL Normal 1.50-8.10 [facility] Comment on above: Performed By: #### C DP #### [facility] [address] [place] [address] [place] [address] Coremaker Experimental: Harshal Austin MD Basophils/100 WBC (Bld) 1 % Normal 0-2 [facility] Comment on above: Performed By: #### C DP #### [facility] [address] [place], [place] [id number] Coremaker Experimental: Harshal Austin MD Eosinophils (Bld) [#/Vol] 0.03 10*3/uL Normal 0.00-0.44 [facility] Comment on above: Performed By: #### C DP #### [facility] [address] [place] [address] [place], [place] [id number] Coremaker Experimental: Harshal Austin MD Eosinophils/100 WBC (Bld) 0 % Low 1-4 [facility] Comment on above: Performed By: #### C DP #### [address] [place] [id number] Coremaker Experimental: Harshal Austin MD Erythrocyte distribution width (RBC) [Ratio] 12.2 % Normal 11.8-14.4 [facility] Comment on above: Performed By: #### C DP #### [address] [place], [facility] Coremaker Experimental: Harshal Austin MD Hematocrit (Bld) [Volume fraction] 32.3 % Low 36.3-47.1 [facility] Comment on above: Performed By: #### C DP #### [address] [place], [facility] Coremaker Experimental: Harshal Austin MD Hemoglobin (Bld) [Mass/Vol] 10.7 g/dL Low 11.9-15.1 [facility] Comment on above: Performed By: #### C DP #### [address] [place], [place] [id number] Coremaker Experimental: Harshal Austin MD Immature granulocytes/100 WBC (Bld) 1 % High 0 [facility] Comment on above: Performed By: #### C DP #### [facility] [address] [place], [place] [id number] Coremaker Experimental: Harshal Austin MD Lymphocytes (Bld) [#/Vol] 1.63 10*3/uL Normal 1.10-3.70 [facility] Comment on above: Performed By: #### C DP #### [facility] [address] [place] [facility] Coremaker Experimental: Harshal Austin MD Lymphocytes/100 WBC (Bld) 23 % Low 24-43 [facility] Comment on above: Performed By: #### C DP #### [facility] [address] [place], [facility] ( Coremaker Experimental: Harshal Austin MD MCH (RBC) [Entitic mass] 29.2 pg Normal 25.2-33.5 [facility] Comment on above: Performed By: #### C DP #### [address] [place], [facility] ( Coremaker Experimental: Harshal Austin MD MCHC (RBC) [Mass/Vol] 33.1 g/dL Normal 28.4-34.8 [facility] Comment on above: Performed By: #### C DP #### [address] [place], [facility]83 Coremaker Experimental: Harshal Austin MD MCV (RBC) [Entitic vol] 88.0 fL Normal 82.6-102.9 [facility] Comment on above: Performed By: #### C DP #### [address] [place], [place] [id number] Coremaker Experimental: Harshal Austin MD Monocytes (Bld) [#/Vol] 0.40 10*3/uL Normal 0.10-1.20 [facility] Comment on above: Performed By: #### C DP #### [facility] [address] [place] [address] [address] [place] [id number] Coremaker Experimental: Harshal Austin MD Monocytes/100 WBC (Bld) 6 % Normal 3-12 [facility] Comment on above: Performed By: #### C DP #### [facility] [address] [place], [place] [id number] Coremaker Experimental: Harshal Austin MD Neutrophil (Seg) 69 % High 36-65 [facility] Comment on above: Performed By: #### C DP #### [facility] [address] [place], [facility]83 Coremaker Experimental: Harshal Austin MD NRBC Automated 0.0 per 100 WBC Normal 0.0 [facility] Comment on above: Performed By: #### C DP #### [facility] [address] [place], [facility]83 Coremaker Experimental: Harshal Austin MD Platelet mean volume (Bld) [Entitic vol] 11.6 fL Normal 8.1-13.5 [facility] Comment on above: Performed By: #### C DP #### [facility] [address] [place], [facility]83 Coremaker Experimental: Harshal Austin MD Platelets (Bld) [#/Vol] 172 10*3/uL Normal 138-453 [facility] Comment on above: Performed By: #### C DP #### [facility] [address] [place], [facility]83 Coremaker Experimental: Harshal Austin MD RBC (Bld) [#/Vol] 3.67 10*6/uL Low 3.95-5.11 [facility] Comment on above: Performed By: #### C DP #### [facility] [facility] [address] [place], [place] [id number] [employer]: Harshal Austin MD WBC (Bld) [#/Vol] 7.1 10*3/uL Normal 3.5-11.3 [facility] Comment on above: Performed By: #### C DP #### [facility] [address] [place], [place] [address] [employer]: Harshal Austin MD Drug Scr, Abuse, Uron 2021 Amphetamine(s),Ur Negative Normal NEG [facility] Comment on above: Performed By: #### C BC #### [facility] [address] [place], [place] 101[address]83 [employer]: Harshal Austin MD Barbiturate(s),Ur Negative Normal NEG [facility] Comment on above: Performed By: #### C BC #### [facility] [address] [place], [place] [address] [employer]: Harshal Austin MD Benzodiazepine(s) Negative Normal NEG [facility] Comment on above: Performed By: #### C BC #### [facility] [address] [place], [place] 1673[address] [employer]: Harshal Austin MD Buprenorphrine, Ur Positive Abnormal [facility] Comment on above: Performed By: #### C BC #### [address] [place], [place] [address]83 [employer]: Harshal Austin MD Cannabinoid(s),Ur Negative Normal [facility] Comment on above: Performed By: #### C BC #### [facility] [address] [place], [place] [id number] [employer]: Harshal Austin MD Cocaine Metabolite Negative [facility] Comment on above: Performed By: #### C BC #### [facility] [address] [place], [place] 360[address]83 [employer]: Harshal Austin MD Methadone Ql (U) Negative Normal NEG [facility] Comment on above: Performed By: #### C BC #### [facility] [address] [place], [place] [address] [employer]: Harshal Austin MD Methamphetamine, Ur Negative Normal NEG [facility] Comment on above: Performed By: #### C BC #### [facility] [address] [place], [place] 4289183 [employer]: Harshal Austin MD Opiate(s), Ur Negative Normal NEG [facility] Comment on above: Performed By: #### C BC #### [facility] [address] [place], [place] 100[address]3 [employer]: Harshal Austin MD Oxycodone, Urine Negative Normal NEG [facility] Comment on above: Performed By: #### C BC #### [address] [place], [place] [address]783 [employer]: Harshal Austin MD Phencyclidine, Ur Negative Normal [facility] Comment on above: Performed By: #### C BC #### [facility] [address] [place] [address] [place] [place], [place] 8638483 [employer]: Harshal Austin MD Propoxyphene,Urine Negative Normal NEG [facility] Comment on above: Performed By: #### C BC #### [address] [place], [place] 26[address]83 [employer]: Harshal Austin MD Tricyclic antidepressants Screen Ql (U) Negative Normal NEG [facility] Comment on above: Result Comment: Drug screen results are to be used for medical purposes only. All positive results are unconfirmed. Testing for employment or legal uses should be sent to a reference laboratory for confirmation. Performed By: #### C BC #### [facility] [address] [place] [address] [place] [address] [employer]: Harshal Austin MD Type + Screenon 10-26-2021 Type + Screen Sample Expiration 10/29/2021,2359 Arm Band Number [id number] ABO/Rh(D) O POSITIVE Antibody Screen NEGATIVE [facility] Comment on above: Performed By: #### T YS #### [facility] [address] [place] [address] [employer]: Harshal Austin MD Cult,Urineon 10-17-2021 Cult,Urine Specimen Description .CLEAN CATCH URINE Culture NO GROWTH Report Status FINAL 10/17/2021 Normal [facility] Comment on above: Performed By: #### U RC #### [facility] [address] [place], [place] 6114[address] [employer]: Isak Guerrero MD [facility] [address] [place] [address] [employer]: Harshal Austin MD Microscopic Urinalysison - [facility] Bacteria, UA 1+ Abnormal None [facility] Epithelial Cells UA 5 TO 10 [facility] Interpretation and review of laboratory results Abnormal [facility] RBC, UA 0 TO 2 [facility] WBC, UA 0 TO 2 [facility] Urinalysison 10-15-2021 Bilirubin Urine Negative NEGATIVE [facility] Color, UA Yellow Yellow [facility] Glucose, Ur Negative NEGATIVE [facility] Interpretation and review of laboratory results Abnormal [facility] Ketones Ql (U) Negative NEGATIVE [facility] Leukocyte esterase Test strip Ql (U) LARGE Abnormal NEGATIVE [facility] Nitrite, Urine Negative NEGATIVE [facility] pH, UA 6.0 [facility] Protein, UA Negative NEGATIVE [facility] Specific [place], UA 1.025 High [facility] Turbidity UA Cloudy Abnormal Clear [facility] Urine Hgb Negative NEGATIVE [facility] Urobilinogen, Urine Normal Normal [facility] Urinalysis, Routineon 2021 Bilirubin, SemiQt,Ur Negative Normal NEG [facility] Comment on above: Performed By: #### U ARICARDO #### [facility] [address] [place] [address] [employer]: Harshal Austin MD Blood, Urine Negative Normal NEG [facility] Comment on above: Performed By: #### U ASJO #### [facility] [address] [place], [place] 27[address]83 [employer]: Harshal Austin MD Clarity (U) Cloudy Abnormal CLEAR [facility] Comment on above: Performed By: #### U A, UMICAO #### [facility] [address] [place], [place] [address]12[address] [employer]: Harshal Austin MD Color (U) Yellow Normal YEL [facility] Comment on above: Performed By: #### U A, UMICAO #### [facility] [address] [place], [place] [address]69[address] [employer]: Harshal Austin MD Glucose Ql (U) Negative Normal NEG [facility] Comment on above: Performed By: #### U A, UMICAO #### [facility] [address] [place], [place] 2788683 [employer]: Harshal Austin MD Ketones Ql (U) Negative Normal NEG [facility] Comment on above: Performed By: #### U A, UMICAO #### [facility] [address] [place] [address] [place] [place], [place] 8385183 [employer]: Harshal Austin MD Leukocyte esterase Test strip Ql (U) LARGE Abnormal NEG [facility] Comment on above: Performed By: #### U A, UMICAO #### [facility] [address] [place] [address] [employer]: Harshal Austin MD Nitrite,Ur Negative Normal NEG [facility] Comment on above: Performed By: #### U A, UMICAO #### [facility] [address] [place], [place] 0[address]83 [employer]: Harshal Austin MD PH,Ur 6.0 Normal 5.0-9.0 [facility] Comment on above: Performed By: #### U A, UMICAO #### [facility] [address] [place], [place] [address]83 [employer]: Harshal Austin MD Protein Ql (U) Negative Normal NEG [facility] Comment on above: Performed By: #### U A, UMICAO #### [facility] [address] [place] [address] [employer]: Harshal Austin MD Spec. [place],Ur 1.025 High 1.010-1.020 [facility] Comment on above: Performed By: #### U A, UMICAO #### [facility] [address] [place], [place] [address]005[address] [employer]: Harshal Austin MD Urobilinogen,Ur Normal Normal NORM [facility] Comment on above: Performed By: #### U A, UMICAO #### [facility] [address] [place] [address] [place] [place], [place] 74[address]783 [employer]: Harshal Austin MD Urinalysis,Microon 2 ----- Normal [facility] Comment on above: Performed By: #### U A, UMICAO #### [address] [place], [place] [address]883 [employer]: Harshal Austin MD Bacteria 1+ Abnormal NONE [facility] Comment on above: Performed By: #### U A, UMICAO #### [facility] [address] [place] [address] [place] [place], [place] 1868483 [employer]: Harshal Austin MD Epithelial cells LM Ql (Urine sed) 5 TO 10 Normal 0-25 [facility] Comment on above: Performed By: #### U A, UMICAO #### [facility] [address] [place] [address] [place] [place], [place] 3247383 [employer]: Harshal Austin MD Urine RBC's 0 TO 2 Normal 0-2 [facility] Comment on above: Performed By: #### U A, UMICAO #### [facility] [address] [place] [address] [place] [address] [employer]: Harshal Austin MD Urine WBC's 0 TO 2 Normal 0-5 [facility] Comment on above: Performed By: #### U A, UMICAO #### [facility] [address] [place] [address] [employer]: Harshal Austin MD Rule Out Grp.B Strepon 10-08 Rule Out Grp.B Strep Specimen Descriptio n .VAGINA Culture NEGATIVE FOR GROUP B STREPTOCOCCI Report Status FINAL 10/08/2021 Normal [facility] Comment on above: Performed By: #### R OGBS #### [facility] [address] [place] [address] [employer]: Isak Guerrero MD [facility] [address] [place] [address] [employer]: Harshla Austin MD POCT ALERE DRUG SCREENon Amphetamine (AMP), poct Negative [facility] Barbiturates (BAR), poct Negative [facility] Buprenorphine Glucuronide (BUPG),poct Positive [facility] COCAINE (NADIRA), POCT Negative [facility] Ecstasy (MDMA), poct Negative [facility] Interpretation and review of laboratory results Normal [facility] Marijuana (THC), poct Negative [facility] Comment on above: temp 96 urine was no t witnessed Methadone (MTD), poct Negative [facility] Methamphetamine (mAMP/MET), poct Negative [facility] Nortripyline (TCA), poct Negative [facility] Opiate (OPI), poct Negative [facility] OXAZEPAM (BZO),POCT Negative [facility] Oxycodone (OXY), poct Negative [facility] Phencyclidine (PCP), poct Negative [facility] Propoxyphene (PPX), poct Negative [facility] All internal control s were present [facility] CBCon 08-25-2021 Erythrocyte distribution width (RBC) [Ratio] 12.1 % Normal 11.8-14.4 [facility] Comment on above: Performed By: #### C BC #### [address] [place] [address] [employer]: Harshal Austin MD Hematocrit (Bld) [Volume fraction] 31.4 % Low 36.3-47.1 [facility] Comment on above: Performed By: #### C BC #### [address] [place] [address] [employer]: Harshal Austin MD Hemoglobin (Bld) [Mass/Vol] 10.5 g/dL Low 11.9-15.1 [facility] Comment on above: Performed By: #### C BC #### [address] [place] [id number] [employer]: Harshal Austin MD MCH (RBC) [Entitic mass] 31.8 pg Normal 25.2-33.5 [facility] Comment on above: Performed By: #### C BC #### [address] [place], [place] 4035483 [employer]: Harshal Austin MD MCHC (RBC) [Mass/Vol] 33.4 g/dL Normal 28.4-34.8 [facility] Comment on above: Performed By: #### C BC #### [address] [place], [place] 100[address]3 [employer] Experimental: Harshal Austin MD MCV (RBC) [Entitic vol] 95.2 fL Normal 82.6-102.9 [facility] Comment on above: Performed By: #### C BC #### [address] [place] [address] [employer] Experimental: Harshal Austin MD NRBC Automated 0.0 per 100 WBC Normal 0.0 [facility] Comment on above: Performed By: #### C BC #### [address] [place] [address] [employer]: Harshal Austin MD Platelet mean volume (Bld) [Entitic vol] 11.3 fL Normal 8.1-13.5 [facility] Comment on above: Performed By: #### C BC #### [facility] [address] [place], [place] 488[address]83 [employer] Experimental: Harshal Austin MD Platelets (Bld) [#/Vol] 181 10*3/uL Normal 138-453 [facility] Comment on above: Performed By: #### C BC #### [facility] [address] [place] [address] [employer] Experimental: Harshal Austin MD RBC (Bld) [#/Vol] 3.30 10*6/uL Low 3.95-5.11 [facility] Comment on above: Performed By: #### C BC #### [facility] [address] [place], [facility] [employer] Experimental: Harshal Austin MD WBC (Bld) [#/Vol] 8.2 10*3/uL Normal 3.5-11.3 [facility] Comment on above: Performed By: #### C BC #### [facility] [address] [place] [address] Dr. [place], [facility] [employer]: Harshal Austin MD [id number] 07-21-2021 SARS-CoV-2 (COVID-19) RNA MARIA FERNANDA+probe Ql (Unsp spec) Detected Abnormal [facility] Comment on above: Result Comment: Rapid NAAT: [...] this assay. Fact sheet for Healthcare Providers: https://www.fda.gov/media/062207/download Fact sheet for Patients: https://www.fda.gov/media/496417/download Methodology: Isothermal Nucleic Acid Amplification Results reported to the appropriate Health Department Performed By: #### C OVRB #### [facility] [address] [place] [address] [employer] Experimental: Harshal Austin MD [id number] 07-17-2021 SARS-CoV-2 (COVID-19) RNA MARIA FERNANDA+probe Ql (Unsp spec) Not detected Normal [facility] Comment on above: Result Comment: Rapid NAAT: [...] management decisions. Fact sheet for Healthcare Providers: https://www.fda.gov/media/489698/download Fact sheet for Patients: https://www.fda.gov/media/531102/download Methodology: Isothermal Nucleic Acid Amplification Performed By: #### B HCG #### [facility] [address] [place] [address] [employer] Experimental: Harshal Austin MD Cult,Urineon 06-18-2021 Cult,Urine Specimen Description .URINE Special Requests NOT REPORTED Culture NO SIGNIFICANT GROWTH Report Status FINAL 06/18/2021 Normal [facility] Comment on above: Performed By: #### B HCG #### [facility] [address] [place] [address] [employer] Experimental: Harshal Austin MD POCT ALERE DRUG SCREENon Amphetamine (AMP), poct Negative [facility] Barbiturates (BAR), poct Negative [facility] Buprenorphine Glucuronide (BUPG),poct Positive [facility] COCAINE (NADIRA), POCT Negative [facility] Ecstasy (MDMA), poct Negative [facility] Interpretation and review of laboratory results Normal [facility] Marijuana (THC), poct Negative [facility] Comment on above: temperature is 92, c ollection was not witnessed Methadone (MTD), poct Negative [facility] Methamphetamine (mAMP/MET), poct Negative [facility] Nortripyline (TCA), poct Negative [facility] Opiate (OPI), poct Negative [facility] OXAZEPAM (BZO),POCT Negative [facility] Oxycodone (OXY), poct Negative [facility] Phencyclidine (PCP), poct Negative [facility] Propoxyphene (PPX), poct Negative [facility] All internal control s are positive [facility] CBC Auto Differentialon 11-0 Absolute Eos # 0.00 [facility] Absolute Immature Granulocyte NOT REPORTED [facility] Absolute Lymph # 1.60 [facility] Absolute [place] # 0.30 [facility] Basophils (Bld) [#/Vol] 0.00 10*3/uL [facility] Basophils/100 WBC (Bld) 1 % 0 - 2 % [facility] Differential Type YES [facility] Eosinophils/100 WBC (Bld) 1 % 0 - 5 % [facility] Hematocrit (Bld) [Volume fraction] 33.4 % Low 36 - 46 % [facility] Hemoglobin.gastrointes tinal spec 1 Ql (Stl) 11.6 g/dL Low 12.0 - 16.0 g/dL [facility] Immature Granulocytes NOT REPORTED 0 % [facility] Interpretation and review of laboratory results Abnormal [facility] Lymphocytes/100 WBC (Bld) 21 % 15 - 40 % [facility] MCH (RBC) [Entitic mass] 31.6 pg 26 - 34 pg [facility] MCHC (RBC) [Mass/Vol] 34.8 g/dL 31 - 37 g/dL [facility] MCV (RBC) [Entitic vol] 91.0 fL 80 - 100 fL [facility] Monocytes/100 WBC (Bld) 4 % 4 - 8 % [facility] NRBC Automated NOT REPORTED per 100 WBC [facility] Platelet distribution width (Bld) [Ratio] 12.7 % 12.1 - 15.2 % [facility] Platelet Estimate NOT REPORTED [facility] Platelet mean volume (Bld) [Entitic vol] NOT REPORTED 6.0 - 12.0 fL [facility] Platelets (Bld) [#/Vol] 181 10*3/uL [facility] RBC (Bld) [#/Vol] 3.67 10*6/uL Low 4.0 - 5.2 m/uL [facility] RBC (Bld) [#/Vol] NOT REPORTED [facility] Segmented neutrophils/100 WBC (Bld) 73 % 47 - 75 % [facility] Segs Absolute 5.90 [facility] WBC (Bld) [#/Vol] 7.9 10*3/uL [facility] WBC (Bld) [#/Vol] NOT REPORTED [facility] CBC with Diffon 05-24-2021 Abs. Basophil 0.00 k/uL Normal 0.0-0.2 [facility] Comment on above: Performed By: #### C DP #### [facility] [address] [place] [address] [employer] Experimental: Harshal Austin MD Abs.Neutrophil (Seg) 5.90 k/uL Normal 2.5-7.0 [facility] Comment on above: Performed By: #### C DP #### [facility] [address] [place] [address] [employer] Experimental: Harshal Austin MD Auto Diff Performed YES Normal [facility] Comment on above: Performed By: #### C DP #### [facility] [address] [place] [address] [employer] Experimental: Harshal Austin MD Basophils/100 WBC (Bld) 1 % Normal 0-2 [facility] Comment on above: Performed By: #### C DP #### [facility] [address] [place], [place] [address] [employer] Experimental: Harshal Austin MD Eosinophils (Bld) [#/Vol] 0.00 10*3/uL Normal 0.0-0.4 [facility] Comment on above: Performed By: #### C DP #### [facility] [address] [place], [place] 8200390 [employer] Experimental: Harshal Austin MD Eosinophils/100 WBC (Bld) 1 % Normal 0-5 [facility] Comment on above: Performed By: #### C DP #### [facility] [address] [place] [address] [employer] Experimental: Harshal Austin MD Erythrocyte distribution width (RBC) [Ratio] 12.7 % Normal 12.1-15.2 [facility] Comment on above: Performed By: #### C DP #### [facility] [address] [place], [place] 4823690 [employer] Experimental: Harshal Austin MD Hematocrit (Bld) [Volume fraction] 33.4 % Low 36-46 [facility] Comment on above: Performed By: #### C DP #### [facility] [address] [place], [place] 1078190 [employer] Experimental: Harshal Austin MD Hemoglobin (Bld) [Mass/Vol] 11.6 g/dL Low 12.0-16.0 [facility] Comment on above: Performed By: #### C DP #### [facility] [address] [place], [place] [id number] [employer] Experimental: Harshal Austin MD Lymphocytes (Bld) [#/Vol] 1.60 10*3/uL Normal 1.0-4.8 [facility] Comment on above: Performed By: #### C DP #### [facility] [address] [place] [address] [employer] Experimental: Harshal Austin MD Lymphocytes/100 WBC (Bld) 21 % Normal 15-40 [facility] Comment on above: Performed By: #### C DP #### [facility] [address] [place] [address] [employer] Experimental: Harshal Austin MD MCH (RBC) [Entitic mass] 31.6 pg Normal 26-34 [facility] Comment on above: Performed By: #### C DP #### [facility] [address] [place] [address] [employer] Experimental: Harshal Austin MD MCHC (RBC) [Mass/Vol] 34.8 g/dL Normal 31-37 [facility] Comment on above: Performed By: #### C DP #### [facility] [address] [place] [address] [employer] Experimental: Harshal Austin MD MCV (RBC) [Entitic vol] 91.0 fL Normal 80-100 [facility] Comment on above: Performed By: #### C DP #### [facility] [address] [place] [address] [employer] Experimental: Harshal Austin MD Monocytes (Bld) [#/Vol] 0.30 10*3/uL Normal 0.0-1.0 [facility] Comment on above: Performed By: #### C DP #### [facility] [address] [place] [address] [employer] Experimental: Harshal Austin MD Monocytes/100 WBC (Bld) 4 % Normal 4-8 [facility] Comment on above: Performed By: #### C DP #### [facility] [address] [place] [address] [employer] Experimental: Harshal Austin MD Neutrophil (Seg) 73 % Normal 47-75 [facility] Comment on above: Performed By: #### C DP #### [facility] [address] [place] [address] [employer] Experimental: Harshal Austin MD Platelets (Bld) [#/Vol] 181 10*3/uL Normal 140-450 [facility] Comment on above: Performed By: #### C DP #### [facility] [address] [place] [address] [employer] Experimental: Harshal Austin MD RBC (Bld) [#/Vol] 3.67 10*6/uL Low 4.0-5.2 [facility] Comment on above: Performed By: #### C DP #### [facility] [address] [place] [address] [employer] Experimental: Harshal Austin MD WBC (Bld) [#/Vol] 7.9 10*3/uL Normal 3.5-11.0 [facility] Comment on above: Performed By: #### C DP #### [facility] [address] [place] [address] [employer] Experimental: Harshal Austin MD Abs.Imm.Granulocyte NOT REPORTED Normal 0.00-0.30 [facility] Comment on above: Performed By: #### C DP #### [facility] [address] [place] [address] [employer] Experimental: Harshal Austin MD Immature Granulocyte NOT REPORTED Normal 0 [facility] Comment on above: Performed By: #### C DP #### [facility] [address] [place] [address] [employer]: Harshal Austin MD MPV NOT REPORTED Normal 6.0-12.0 [facility] Comment on above: Performed By: #### C DP #### [facility] [address] [place] [address] [employer]: Harshal Austin MD NRBC Automated NOT REPORTED Normal [facility] Comment on above: Performed By: #### C DP #### [facility] [address] [place], [place] [id number] [employer]: Harshal Austin MD Platelet Comment NOT REPORTED Normal [facility] Comment on above: Performed By: #### C DP #### [facility] [address] [place], [place] [id number] [employer]: Harshal Austin MD RBC morphology finding Nom (Bld) NOT REPORTED Normal [facility] Comment on above: Performed By: #### C DP #### [facility] [address], [place] [id number] [employer]: Harshal Austin MD WBC Morphology NOT REPORTED Normal [facility] Comment on above: Performed By: #### C DP #### [facility] [address] [place] [address] [employer]: Harshal Austin MD Microscopic Urinalysison - [facility] Amorphous, UA NOT REPORTED None [facility] Bacteria, UA 3+ Abnormal None [facility] Casts UA NOT REPORTED /LPF [facility] Crystals, UA NOT REPORTED None /HPF [facility] Epithelial Cells UA 10 TO 20 /HPF [facility] Interpretation and review of laboratory results Abnormal [facility] Mucus, UA NOT REPORTED None [facility] Other Observations UA NOT REPORTED NOT REQ. M [facility] RBC, UA NOT REPORTED [facility] Renal Epithelial, UA NOT REPORTED 0 /HPF [facility] Trichomonas, UA NOT REPORTED None [facility] WBC, UA 2 TO 5 0 /HPF [facility] Yeast, UA NOT REPORTED None [facility] TYPE AND SCREENon 1 07-24-2020 ABO/Rh Positive [facility] Type + Scrnon 05-24 Type + Scrn Negative Normal [facility] Comment on above: Performed By: #### B HCG #### [facility] [address] [place], [place] [address] [employer]: Harshal Austin MD Urinalysison 05-24-2021 Bilirubin Urine Negative NEGATIVE [facility] Color, UA Yellow Yellow [facility] Glucose, Ur Negative NEGATIVE [facility] Interpretation and review of laboratory results Abnormal [facility] Ketones Ql (U) Negative NEGATIVE [facility] Leukocyte esterase Test strip Ql (U) 2+ Abnormal NEGATIVE [facility] Nitrite, Urine Negative NEGATIVE [facility] pH, UA 6.5 [facility] Protein, UA Negative NEGATIVE [facility] Specific [place], UA 1.015 [facility] Turbidity UA Hazy Abnormal Clear [facility] Urinalysis Comments [facility] Urine Hgb Negative NEGATIVE [facility] Urobilinogen, Urine Normal Normal [facility] Urinalysis, Routineon 2020 Bilirubin, SemiQt,Ur Negative Normal NEG [facility] Comment on above: Performed By: #### U MANFREDO, UA #### [facility] [address] [place], [place] [id number] [employer]: Harshal Austin MD Blood, Urine Negative Normal NEG [facility] Comment on above: Performed By: #### U MANFREDO, UA #### [facility] [address] [place], [place] [phone] [employer]: Harshal Austin MD Clarity (U) Hazy Abnormal CLEAR [facility] Comment on above: Performed By: #### U MANFREDO, UA #### [facility] [address] [place], [place] [id number] [employer]: Harshal Austin MD Color (U) Yellow Normal YEL [facility] Comment on above: Performed By: #### U MICAO, UA #### [facility] [address] [place], [place] [id number] [employer]: Harshal Austin MD Comment Normal [facility] Comment on above: Performed By: #### U MICAO, UA #### [facility] [address] [place] [address] [employer]: Harshal Austin MD Glucose Ql (U) Negative Normal NEG [facility] Comment on above: Performed By: #### U MICAO, UA #### [facility] [address] [place], [place] [id number] [employer]: Harshal Austin MD Ketones Ql (U) Negative Normal NEG [facility] Comment on above: Performed By: #### U MICAO, UA #### [facility] [address] [place], [place] [id number] [employer]: Harshal Austin MD Leukocyte esterase Test strip Ql (U) 2+ Abnormal NEG [facility] Comment on above: Performed By: #### U MICAO, UA #### [facility] [address] [place], [place] [phone] [employer]: Harshal Austin MD Nitrite,Ur Negative Normal NEG [facility] Comment on above: Performed By: #### U MICAO, UA #### [facility] [address] [place], [place] [phone] [employer]: Harshal Austin MD PH,Ur 6.5 Normal 5.0-8.0 [facility] Comment on above: Performed By: #### U MICAO, UA #### [facility] [address] [place] [address] [employer]: Harshal Austin MD Protein Ql (U) Negative Normal NEG [facility] Comment on above: Performed By: #### U MICAO, UA #### [facility] [address] [place] [address] [employer]: Harshal Austin MD Spec. [place],Ur 1.015 Normal 1.005-1.030 [facility] Comment on above: Performed By: #### U MICAO, UA #### [facility] [address] [place] [address] [employer]: Harshal Austin MD Urobilinogen,Ur Normal Normal NORM [facility] Comment on above: Performed By: #### U MICAO, UA #### [facility] [address] [place], [place] [phone] [employer]: Harshal Austin MD Urinalysis,Microon 1 ----- Normal [facility] Comment on above: Performed By: #### U MANFREDO, UA #### [facility] [address] [place], [place] [phone] [employer]: Harshal Austin MD Bacteria 3+ Abnormal NONE [facility] Comment on above: Performed By: #### U MANFREDO, UA #### [facility] [address] [place] [address] [employer]: Harshal Austin MD Epithelial cells LM Ql (Urine sed) 10 TO 20 Normal [facility] Comment on above: Performed By: #### U MANFREDO, UA #### [facility] [address] [place], [place] [phone] [employer]: Harshal Austin MD Urine WBC's 2 TO 5 Normal 0 [facility] Comment on above: Performed By: #### U MANFREDO, UA #### [facility] [address] [place], [place] [phone] [employer]: Harshal Austin MD Amorphous sediment LM Ql (Urine sed) NOT REPORTED Normal [facility] Comment on above: Performed By: #### U MANFREDO, UA #### [facility] [address] [place], [place] [phone] [employer]: Harshal Austin MD Casts NOT REPORTED Normal [facility] Comment on above: Performed By: #### U MANFREDO, UA #### [facility] [address] [place] [address] [employer]: Harshal Autsin MD Crystals LM Nom (Urine sed) NOT REPORTED Normal [facility] Comment on above: Performed By: #### U MANFREDO, UA #### [facility] [address] [place], [place] [address] [employer]: Harshal Austin MD Epithelial, Renal NOT REPORTED Normal 0 [facility] Comment on above: Performed By: #### U MICAO, UA #### [facility] [address] [place], [place] [phone] [employer] Experimental: Harshal Austin MD Mucus Strands NOT REPORTED Normal NONE [facility] Comment on above: Performed By: #### U MICAO, UA #### [facility] [address] [place], [place] [address] [employer] Experimental: Harshal Austin MD Other Observations NOT REPORTED Normal NREQ [facility] Comment on above: Performed By: #### U MICAO, UA #### [facility] [address] [place], [place] [phone] [employer] Experimental: Harshal Austin MD Trichomonas NOT REPORTED Normal NONE [facility] Comment on above: Performed By: #### U MICAO, UA #### [facility] [address] [place], [place] [address] [employer]: Harshal Austin MD Urine RBC's NOT REPORTED Normal 0-2 [facility] Comment on above: Performed By: #### U MANFREDO, UA #### [facility] [address] [place], [place] [id number] [employer] Experimental: Harshal Austin MD Yeast NOT REPORTED Normal [facility] Comment on above: Performed By: #### U MICAO, UA #### [facility] [address] [place], [place] [phone] [employer]: Harshal Austin MD Cult,Urineon 04-09-2021 Cult,Urine Specimen Description .URINE, MIDSTREAM Special Requests NOT REPORTED Culture NO GROWTH Report Status FINAL 04/09/2021 Normal [facility] Comment on above: Performed By: #### B HCG #### [facility] [address] [place] [address] [employer]: Harshal Austin MD HCG, Quanton 04-08-2021 HCG, Quant 99954 IU/L High <5 [facility] Comment on above: Result Comment: Non-preg premeno <=5 Postmeno <=8 Male <=3 If HCG results do not concur with clinical observations, additional testing to confirm results is recommended. Elevated results not associated with may be found in patients with other diseases such as tumors of the germ cells (testis, ovaries, etc.), bladder, pancreas, stomach, lungs, and liver. Performed By: #### B HCG #### [facility] [address] [place] [address] [employer]: Harshal Austin MD Urinalysis w/ Microon 2020 ----- Normal [facility] Comment on above: Performed By: #### B HCG #### [facility] [address] [place] [address] [employer] Experimental: Harshal Austin MD Bilirubin, SemiQt,Ur Negative Normal NEG [facility] Comment on above: Performed By: #### B HCG #### [facility] [address] [place], [place] [phone] [employer] Experimental: Harshal Austin MD Blood, Urine Negative Normal NEG [facility] Comment on above: Performed By: #### B HCG #### [facility] [address] [place] [address] [employer] Experimental: Harshal Austin MD Clarity (U) CLEAR Normal CLEAR [facility] Comment on above: Performed By: #### B HCG #### [facility] [address] [place], [place] [id number] [employer]: Harshal Austin MD Color (U) YELLOW Normal YEL [facility] Comment on above: Performed By: #### B HCG #### [facility] [address] [place] [address] [employer]: Harshal Austin MD Comment Normal [facility] Comment on above: Performed By: #### B HCG #### [facility] [address] [place] [address] [employer] Experimental: Harshal Austin MD Glucose Ql (U) Negative Normal NEG [facility] Comment on above: Performed By: #### B HCG #### [facility] [address] [place] [address] [employer]: Harshal Austin MD Ketones Ql (U) Negative Normal NEG [facility] Comment on above: Performed By: #### B HCG #### [facility] [address] [place], [place] [address] [employer]: Harshal Austin MD Leukocyte esterase Test strip Ql (U) 3+ Abnormal NEG [facility] Comment on above: Performed By: #### B HCG #### [facility] [address] [place] [address] [employer]: Harshal Austin MD Nitrite,Ur Negative Normal NEG [facility] Comment on above: Performed By: #### B HCG #### [facility] [address] [place], [place] [phone] [employer] Experimental: Harshal Austin MD PH,Ur 6.5 Normal 5.0-8.0 [facility] Comment on above: Performed By: #### B HCG #### [facility] [address] [place] [address] [employer]: Harshal Austin MD Protein Ql (U) 1+ Abnormal NEG [facility] Comment on above: Performed By: #### B HCG #### [facility] [address] [place], [place] [address] [employer] Experimental: Harshal Austin MD Spec. [place],Ur 1.015 Normal 1.005-1.030 [facility] Comment on above: Performed By: #### B HCG #### [facility] [address] [place], [place] [phone] [employer] Experimental: Harshal Austin MD Urine RBC's 2 TO 5 Normal 0-2 [facility] Comment on above: Performed By: #### B HCG #### [facility] [address] [place], [place] [id number] [employer] Experimental: Harshal Austin MD Urine WBC's 10 TO 20 Normal 0 [facility] Comment on above: Performed By: #### B HCG #### [facility] [address] [place], [place] 1245[address] [employer]: Harshal Austin MD Urobilinogen,Ur Normal Normal NORM [facility] Comment on above: Performed By: #### B HCG #### [facility] [address] [place], [place] 757[address] [employer]: Harshal Austin MD Amorphous sediment LM Ql (Urine sed) NOT REPORTED Normal [facility] Comment on above: Performed By: #### B HCG #### [facility] [address] [place] [address] [employer] Experimental: Harshal Austin MD Bacteria NOT REPORTED Normal NONE [facility] Comment on above: Performed By: #### B HCG #### [facility] [address] [place], [place] [phone] [employer] Experimental: Harshal Austin MD Casts NOT REPORTED Normal [facility] Comment on above: Performed By: #### B HCG #### [facility] [address] [place], [place] [phone] [employer] Experimental: Harshal Austin MD Crystals LM Nom (Urine sed) NOT REPORTED Normal NONE [facility] Comment on above: Performed By: #### B HCG #### [facility] [address] [place], [place] 1490[address] [employer] Experimental: Harshal Austin MD Epithelial cells LM Ql (Urine sed) NOT REPORTED Normal [facility] Comment on above: Performed By: #### B HCG #### [facility] [address] [place], [place] 6[address] [employer] Experimental: Harshal Austin MD Epithelial, Renal NOT REPORTED Normal 0 [facility] Comment on above: Performed By: #### B HCG #### [facility] [address] [place], [place] [address] [employer] Experimental: Harshal Austin MD Mucus Strands NOT REPORTED Normal NONE [facility] Comment on above: Performed By: #### B HCG #### [facility] [address] [place], [place] [address] [employer] Experimental: Harshal Austin MD Other Observations NOT REPORTED Normal NREQ [facility] Comment on above: Performed By: #### B HCG #### [facility] [address] [place] [address] [employer] Experimental: Harshal Austin MD Trichomonas NOT REPORTED Normal NONE [facility] Comment on above: Performed By: #### B HCG #### [facility] [address] [place], [place] [id number] [employer] Experimental: Harshal Austin MD Yeast NOT REPORTED Normal NONE [facility] Comment on above: Performed By: #### B HCG #### [facility] [address] [place] [address] [employer] Experimental: Harshal Austin MD Urinalysis with MicroscopicO rdered By: Juan Richards on 04-08-2021 - [facility] [employer] Phone: Amorphous, UA NOT REPORTED None [facility] [employer] Phone: Bacteria, UA NOT REPORTED None [facility] [employer] Phone: Bilirubin Urine Negative NEGATIVE [facility] [employer] Phone: Casts UA NOT REPORTED /LPF [employer] Work Phone: Color, UA YELLOW YELLOW [employer] Work Phone: Crystals, UA NOT REPORTED None /HPF [facility] [employer] Work Phone: Epithelial Cells UA NOT REPORTED /HPF [facility] Work Phone: Glucose, Ur Negative NEGATIVE [employer] Work Phone: Interpretation and review of laboratory results Abnormal [employer] Work Phone: Ketones Ql (U) Negative NEGATIVE [employer] Work Phone: Leukocyte esterase Test strip Ql (U) 3+ Abnormal NEGATIVE [employer] Phone: Mucus, UA NOT REPORTED None [employer] Work Phone: Nitrite, Urine Negative NEGATIVE [employer] Work Phone: Other Observations UA NOT REPORTED NOT REQ. M [facility] Work Phone: pH, UA 6.5 [facility] Phone: Protein, UA 1+ Abnormal NEGATIVE [facility] Phone: RBC, UA 2 TO 5 [employer] Work Phone: Renal Epithelial, UA NOT REPORTED 0 /HPF [employer] Work Phone: Specific [place], UA 1.015 [employer] Work Phone: Trichomonas, UA NOT REPORTED None [employer] Work Phone: Turbidity UA CLEAR CLEAR [employer] Work Phone: Urinalysis Comments [employer] Work Phone: Urine Hgb Negative NEGATIVE [employer] Work Phone: Urobilinogen, Urine Normal Normal [employer] Work Phone: WBC, UA 10 TO 20 0 /HPF [facility] Phone: Yeast, UA NOT REPORTED None [facility] Phone: [facility] Phone: hCG, quantitative, Ordered By: Juan Richards on 04-08-2021 hCG Quant 52309 High <5 IU/L [facility] Phone: Comment on above: Non-preg premeno <=5 Postmeno <=8 Male <=3 If HCG results do not concur with clinical observations, additional testing to confirm results is recommended. Elevated results not associated with may be found in patients with other diseases such as tumors of the germ cells (testis, ovaries, etc.), bladder, pancreas, stomach, lungs, and liver. Interpretation and review of laboratory results Abnormal [facility] Phone: [facility] Phone: COVID-19, MOLECULARon 2020 SARS-CoV-2 (COVID-19) Ab IA Ql Not detected Normal Not Detected [facility] Comment on above: Result Comment: This test was performed under the FDA's Emergency Use Authorization (EUA). Testing was performed using the [employer] NOW COVID-19 assay on the Direct Access Software platform. This test has not been approved for use in asymptomatic patients and its performance in this patient population has not been evaluated. Negative results do not rule out the presence of SARS-CoV-2/COVID-19. Fact sheets for the EUA can be found at the following links: For Healthcare Providers: https://www.fda.gov/media/311385/download For Patients: https://www.fda.gov/media/611807/download COVID-19, Molecularon 2020 SARS-CoV-2 (COVID-19) RdRp gene MARIA FERNANDA+probe Ql (Resp) Not detected Not Detected [facility] Comment on above: This test was perfor med under the FDA's Emergency Use Authorization (EUA). Testing was performed using the [employer] ID NOW COVID-19 assay on the ID NOW platform. This test has not been approved for use in asymptomatic patients and its performance in this patient population has not been evaluated. Negative results do not rule out the presence of SARS-CoV-2/COVID-19. Fact sheets for the EUA can be found at the following links: For Healthcare Providers: https://www.fda.gov/media/247591/download For Patients: https://www.fda.gov/media/761404/download SARS-CoV-2 (COVID-19) RdRp g mathew MARIA FERNANDA+probe Ql (Resp)on 03-25-2021 Interpretation and review of laboratory results Normal [facility] Cult,Urineon 03-12-2021 Cult,Urine Specimen Description .CLEAN CATCH URINE Special Requests NOT REPORTED Culture NO SIGNIFICANT GROWTH Report Status FINAL 03/12/2021 Normal [facility] Comment on above: Performed By: #### B HCG #### [facility] [address] [place] [address] [employer]: Harshal Austin MD Chlamydia/GC DNA, Uron 03-11 Chlamydia Probe, Ur Negative Normal NEG [facility] Comment on above: Result Comment: CHLA MYDIA [...] target. Performed By: #### U CGP #### [facility] [address] [place] [address] [employer]: Isak Guerrero MD Gonorrhea Probe, Ur Negative Normal NEG [facility] Comment on above: Result Comment: NEIS SERIA [...] target. Performed By: #### U CGP #### [facility] [address] [place] [address] [employer]: Isak Guerrero MD HIV Ag/Abon 03-11-2021 HIV Ag/Ab Non-Reactive Normal NR [facility] Comment on above: Result Comment: No l aboratory evidence of HIV infection. If acute HIV infection is suspected, consider testing for HIV-1 RNA. Performed By: #### H IVCMB, AHCV #### [facility] [address] [place] [address] [employer]: Isak Guerrero MD HIV ScreenOrdered By: Bart Hassan on 03-11-2021 HIV Ag/Ab Non-Reactive NONREACTIVE [facility] Phone: Comment on above: No laboratory eviden ce of HIV infection. If acute HIV infection is suspected, consider testing for HIV-1 RNA. [facility] Phone: Hep C Abon 03-11-2021 Hep C Ab Non-Reactive Normal NR [facility] Comment on above: Result Comment: The hepatitis [...] Performed By: #### H IVCMB, AHCV #### [facility] [address] [place] [address] [employer]: Isak Guerrero MD Profileon T.pallidum Ab Screen Non-Reactive Normal NR [facility] Comment on above: Result Comment: T. pallidum antibodies are not detected. There is no serological evidence of infection with T. pallidum (early primary syphilis cannot be excluded). Retest in 2-4 weeks if syphilis is clinically suspect. Performed By: #### P RENAT #### [facility] [address] [place] [address] [employer]: Isak Guerrero MD [facility] [address] [place], [place] [address] [employer] Experimental: Harshal Austin MD Hep B Surf Ag Non-Reactive Normal NR [facility] Comment on above: Performed By: #### P RENAT #### [facility] [address] [place] [address] [employer] Experimental: Isak Guerrero MD [facility] [address] [place], [place] [phone] [employer] Experimental: Harshal Austin MD Rubella Ab, IgG 36.9 IU/mL Normal [facility] Comment on above: Result Comment: REFERENCE RANGE: <5.0 NON-REACTIVE (non-immune) 5.0 TO 9.9 EQUIVOCAL >=10.0 REACTIVE (immune) Performed By: #### P RENAT #### [address] [address] [employer]: Isak Guerrero MD [facility] [address] [place], [place] [phone] [employer]: Harshal Austin MD Hepatitis C AntibodyOrdered By: Karlee Hassan on 03-10-2021 Hepatitis C Ab Non-Reactive NONREACTIVE [facility] [employer] Phone: Comment on above: The hepatitis C [...] recommended by ordering HCV RNA by PCR. [facility] Phone: PROFILE IOrdered By : Karlee Hassan on 03-10-2021 Absolute Eos # 0.20 [facility] Phone: Absolute Immature Granulocyte NOT REPORTED [facility] Phone: Absolute Lymph # 2.50 [facility] Phone: Absolute [place] # 0.30 [facility] Phone: Basophils (Bld) [#/Vol] 0.00 10*3/uL [facility] Phone: Basophils/100 WBC (Bld) 1 % 0 - 2 % [facility] Phone: Differential Type YES [facility] Phone: Eosinophils/100 WBC (Bld) 3 % 0 - 5 % [facility] Phone: Hematocrit (Bld) [Volume fraction] 36.9 % 36 - 46 % [facility] Phone: Hemoglobin.gastrointes tinal spec 1 Ql (Stl) 12.7 g/dL 12.0 - 16.0 g/dL [facility] Phone: Hepatitis B Surface Ag Non-Reactive NONREACTIVE [facility] Phone: Immature Granulocytes NOT REPORTED 0 % [employer] Phone: Lymphocytes/100 WBC (Bld) 38 % 15 - 40 % [facility] Phone: MCH (RBC) [Entitic mass] 31.7 pg 26 - 34 pg [facility] Phone: MCHC (RBC) [Mass/Vol] 34.5 g/dL 31 - 37 g/dL [facility] Phone: MCV (RBC) [Entitic vol] 91.9 fL 80 - 100 fL [facility] Phone: Monocytes/100 WBC (Bld) 5 % 4 - 8 % [facility] Phone: NRBC Automated NOT REPORTED per 100 WBC [facility] Phone: Platelet distribution width (Bld) [Ratio] 12.8 % 12.1 - 15.2 % [facility] Phone: Platelet Estimate NOT REPORTED [facility] Phone: Platelet mean volume (Bld) [Entitic vol] NOT REPORTED 6.0 - 12.0 fL [facility] Phone: Platelets (Bld) [#/Vol] 169 10*3/uL [facility] Phone: RBC (Bld) [#/Vol] 4.01 10*6/uL 4.0 - 5.2 m/uL [facility] Phone: RBC (Bld) [#/Vol] NOT REPORTED [facility] Phone: Rubella virus IgG Ql (S) 36.9 IU/mL [facility] Phone: Comment on above: REFERENCE RANGE: <5.0 NON-REACTIVE (non-immune) 5.0 TO 9.9 EQUIVOCAL >=10.0 REACTIVE (immune) Segmented neutrophils/100 WBC (Bld) 53 % 47 - 75 % [facility] Phone: Segs Absolute 3.50 [facility] Phone: T. pallidum, IgG Non-Reactive NONREACTIVE [facility] Phone: Comment on above: T. pallidum antibodies are not detected. There is no serological evidence of infection with T. pallidum (early primary syphilis cannot be excluded). Retest in 2-4 weeks if syphilis is clinically suspect. WBC (Bld) [#/Vol] 6.6 10*3/uL [facility] Phone: WBC (Bld) [#/Vol] NOT REPORTED [facility] Phone: [facility] Phone: TYPE AND SCREENOrde red By: Karlee Hassan on 03-10-2021 ABO/Rh Positive [facility] Phone: [facility] Work Phone: Profileon 1 Abs. Basophil 0.00 k/uL Normal 0.0-0.2 [facility] Comment on above: Performed By: #### P RENAT #### [address] [address] [employer]: Isak Guerrero MD [facility] [address] [place] [address] [employer]: Harshal Austin MD Abs.Neutrophil (Seg) 3.50 k/uL Normal 2.5-7.0 [facility] Comment on above: Performed By: #### P RENAT #### [address] [address] [employer]: Isak Guerrero MD [facility] [address] [place] [address] [employer]: Harshal Austin MD Auto Diff Performed YES Normal [facility] Comment on above: Performed By: #### P RENAT #### [address] [address] [employer]: Isak Guerrero MD [facility] [address] [place] [address] [employer]: Harshal Austin MD Basophils/100 WBC (Bld) 1 % Normal 0-2 [facility] Comment on above: Performed By: #### P RENAT #### [address] [address] [employer]: Isak Guerrero MD [facility] [address] [place] [address] [employer]: Harshal Austin MD Eosinophils (Bld) [#/Vol] 0.20 10*3/uL Normal 0.0-0.4 [facility] Comment on above: Performed By: #### P RENAT #### [address] [place] [address] [employer]: Isak Guerrero MD [facility] [address] [place] [address] [employer]: Harshal Austin MD Eosinophils/100 WBC (Bld) 3 % Normal 0-5 [facility] Comment on above: Performed By: #### P RENAT #### [facility] [address] [place] [address] [employer]: Isak Guerrero MD [facility] [address] [place] [address] [employer]: Harshal Austin MD Erythrocyte distribution width (RBC) [Ratio] 12.8 % Normal 12.1-15.2 [facility] Comment on above: Performed By: #### P RENAT #### [address] [address] [employer]: Isak Guerrero MD [facility] [address] [place] [address] [employer]: Harshal Austin MD Hematocrit (Bld) [Volume fraction] 36.9 % Normal 36-46 [facility] Comment on above: Performed By: #### P RENAT #### [facility] [address] [place] [address] [employer]: Isak Guerrero MD [facility] [address] [place] [address] [employer]: Harshal Austin MD Hemoglobin (Bld) [Mass/Vol] 12.7 g/dL Normal 12.0-16.0 [facility] Comment on above: Performed By: #### P RENAT #### [facility] [address] [place] [address] [employer]: Isak Guerrero MD [facility] [address] [facility] [place], [place] [id number] [employer]: Harshal Austin MD Lymphocytes (Bld) [#/Vol] 2.50 10*3/uL Normal 1.0-4.8 [facility] Comment on above: Performed By: #### P RENAT #### [id number] [place] [address] [employer]: Isak Guerrero MD [facility] [address] [place], [place] [id number] [employer]: Harshal Austin MD Lymphocytes/100 WBC (Bld) 38 % Normal 15-40 [facility] Comment on above: Performed By: #### P RENAT #### [address] [address] [employer]: Isak Guerrero MD [facility] [address] [place] [address] [employer]: Harshal Austin MD MCH (RBC) [Entitic mass] 31.7 pg Normal 26-34 [facility] Comment on above: Performed By: #### P RENAT #### [facility] [address] [place] [address] [employer]: Isak Guerrero MD [facility] [address] [place] [address] [employer]: Harshal Austin MD MCHC (RBC) [Mass/Vol] 34.5 g/dL Normal 31-37 [facility] Comment on above: Performed By: #### P RENAT #### [facility] [address] [place] [address] [employer]: Isak Guerrero MD [facility] [address] [place] [address] [employer]: Harshal Austin MD MCV (RBC) [Entitic vol] 91.9 fL Normal 80-100 [facility] Comment on above: Performed By: #### P RENAT #### [address] [address] [employer]: Isak Guerrero MD [facility] [address] [place] [address] [employer]: Harshal Austin MD Monocytes (Bld) [#/Vol] 0.30 10*3/uL Normal 0.0-1.0 [facility] Comment on above: Performed By: #### P RENAT #### [facility] [address] [place] [address] [employer]: Isak Guerrero MD [facility] [address] [place] [address] [employer]: Harshal Austin MD Monocytes/100 WBC (Bld) 5 % Normal 4-8 [facility] Comment on above: Performed By: #### P RENAT #### [address] [address] [employer]: Isak Guerrero MD [facility] [address] [place] [address] [employer]: Harshal Austin MD Neutrophil (Seg) 53 % Normal 47-75 [facility] Comment on above: Performed By: #### P RENAT #### [facility] [address] [place] [address] [employer]: Isak Guerrero MD [facility] [address] [place] [address] [employer]: Harshal Austin MD Platelets (Bld) [#/Vol] 169 10*3/uL Normal 140-450 [facility] Comment on above: Performed By: #### P RENAT #### [facility] [address] [place] [address] [employer]: Isak Guerrero MD [facility] [address] [place] [address] [employer]: Harshal Austin MD RBC (Bld) [#/Vol] 4.01 10*6/uL Normal 4.0-5.2 [facility] Comment on above: Performed By: #### P RENAT #### [facility] [address] [place] [address] [employer]: Isak Guerrero MD [facility] [address] [place] [address] [employer]: Harshal Austin MD WBC (Bld) [#/Vol] 6.6 10*3/uL Normal 3.5-11.0 [facility] Comment on above: Performed By: #### P RENAT #### [address] [address] [employer]: Isak Guerrero MD [facility] [address] [place] [address] [employer]: Harshal Austin MD Abs.Imm.Granulocyte NOT REPORTED Normal 0.00-0.30 [facility] Comment on above: Performed By: #### P RENAT #### [facility] [address] [place] [address] [employer]: Isak Guerrero MD [facility] [address] [place] [address] [employer]: Harshal Austin MD Immature Granulocyte NOT REPORTED Normal 0 [facility] Comment on above: Performed By: #### P RENAT #### [address] [address] [employer]: Isak Guerrero MD [facility] [address] [place], [place] [id number] [employer]: Harshal Austin MD MPV NOT REPORTED Normal 6.0-12.0 [facility] Comment on above: Performed By: #### P RENAT #### [facility] [address] [place] [address] [employer]: Isak Guerrero MD [facility] [address] [place], [place] [phone] [employer]: Harshal Austin MD NRBC Automated NOT REPORTED Normal [facility] Comment on above: Performed By: #### P RENAT #### [facility] [address] [place] [address] [employer]: Isak Guerrero MD [facility] [address] [place] [address] [employer]: Harshal Austin MD Platelet Estimate NOT REPORTED Normal [facility] Comment on above: Performed By: #### P RENAT #### [facility] [address] [place] [address] [employer]: Isak Guerrero MD [facility] [address] [place] [address] [employer]: Harshal Austin MD RBC morphology finding Nom (Bld) NOT REPORTED Normal [facility] Comment on above: Performed By: #### P RENAT #### [facility] [address] [place] [address] [employer]: Isak Guerrero MD [facility] [address] [place], [place] [id number] [employer]: Harshal Austin MD WBC Morphology NOT REPORTED Normal [facility] Comment on above: Performed By: #### P RENAT #### [facility] [address] [place] [address] [employer]: Isak Guerrero MD [facility] [address] [place] [address] [employer]: Harshal Austin MD Type + Scrnon 03-10 Type + Scrn Negative Normal [facility] Comment on above: Performed By: #### B HCG #### [facility] [address] [place] [address] [employer]: Harshal Austin MD Toxicology Scree, Urineon Amphetamine(s),Ur Negative Normal NEG [facility] Comment on above: Result Comment: (Positive cutoff 500 ng/mL) Performed By: #### C PDAU #### [facility] [address] [place] [address] [employer]: Harshal Austin MD Barbiturate(s),Ur Negative Normal NEG [facility] Comment on above: Result Comment: (Positive cutoff 200 ng/mL) Performed By: #### C PDAU #### [facility] [address] [place] [address] [employer]: Harshal Austin MD Benzodiazepine(s) Negative Normal NEG [facility] Comment on above: Result Comment: (Positive cutoff 150 ng/mL) Performed By: #### C PDAU #### [facility] [address] [place] [address] [employer]: Harshal Austin MD Cannabinoid(s),Ur Negative Normal NEG [facility] Comment on above: Result Comment: (Positive cutoff 50 ng/mL) Performed By: #### C PDAU #### [facility] [address] [place] [address] [employer]: Harshal Austin MD Cocaine Metabolite Negative Normal NEG [facility] Comment on above: Result Comment: (Positive cutoff 150 ng/mL) Performed By: #### C PDAU #### [facility] [address] [place] [address] [employer]: Harshal Austin MD Methadone Negative Normal NEG [facility] Comment on above: Result Comment: (Positive cutoff 200 ng/mL) Performed By: #### C PDAU #### [facility] [address] [place] [address] [employer]: Harshal Austin MD Methamphetamine, Ur Negative Normal NEG [facility] Comment on above: Result Comment: (Positive cutoff 500 ng/mL) Performed By: #### C PDAU #### [facility] [address] [place] [address] [employer]: Harshal Austin MD Opiate(s), Ur Negative Normal NEG [facility] Comment on above: Result Comment: (Positive cutoff 100 ng/mL) Performed By: #### C PDAU #### [facility] [address] [place] [address] [employer]: Harshal Austin MD Oxycodone, Urine Negative Normal NEG [facility] Comment on above: Result Comment: (Positive cutoff 100 ng/mL) Performed By: #### C PDAU #### [facility] [address] [place] [address] [employer]: Harshal Austin MD Phencyclidine, Ur Negative Normal NEG [facility] Comment on above: Result Comment: (Positive cutoff 25 ng/mL) Performed By: #### C PDAU #### [facility] [address] [place] [address] [employer]: Harshal Austin MD Propoxyphene,Urine Negative Normal NEG [facility] Comment on above: Result Comment: (Positive cutoff 300 ng/mL) Performed By: #### C PDAU #### [facility] [address] [place] [address] [employer]: Harshal uAstin MD Tricyclic Antidepressants Negative Normal NEG [facility] Comment on above: Result Comment: (Positive cutoff 300 ng/mL) Drug screen results are to be used for medical purposes only. All positive results are unconfirmed. Testing for employment or legal uses should be sent to a reference laboratory for confirmation. Performed By: #### C PDAU #### [facility] [address] [place] [address] [employer]: Harshal Austin MD Buprenorphrine, Ur NOT REPORTED Normal NEG [facility] Comment on above: Performed By: #### C PDAU #### [facility] [address] [place], [place] [id number] [employer]: Harshal Austin MD Interpretive Info NOT REPORTED Normal [facility] Comment on above: Performed By: #### C PDAU #### [facility] [address] [place] [address] [employer]: Harshal Austin MD MDMA, Urine NOT REPORTED Normal NEG [facility] Comment on above: Performed By: #### C PDAU #### [facility] [address] [place] [address] [employer]: Harshal Austin MD Urine Drug Screen, Comprehen siveOrdered By: Karlee Hassan on 03-10-2021 Amphetamine Screen, Ur Negative NEGATIVE [facility] [employer] Work Phone: Comment on above: (Positive cutoff 500 ng/mL) Barbiturate Screen, Ur Negative NEGATIVE [facility] [employer] Work Phone: Comment on above: (Positive cutoff 200 ng/mL) Benzodiazepine Screen, Urine Negative NEGATIVE [facility] [employer] Work Phone: Comment on above: (Positive cutoff 150 ng/mL) Buprenorphine Urine NOT REPORTED NEGATIVE [facility] [employer] Work Phone: Cannabinoid Scrn, Ur Negative NEGATIVE [facility] [employer] Work Phone: Comment on above: (Positive cutoff 50 ng/mL) Cocaine Metabolite, Urine Negative NEGATIVE [facility] [employer] Work Phone: Comment on above: (Positive cutoff 150 ng/mL) MDMA, Urine NOT REPORTED NEGATIVE [facility] [employer] Work Phone: Methadone Screen, Urine Negative NEGATIVE [facility] [employer] Work Phone: Comment on above: (Positive cutoff 200 ng/mL) Methamphetamine, Urine Negative NEGATIVE [facility] [employer] Work Phone: Comment on above: (Positive cutoff 500 ng/mL) Opiates, Urine Negative NEGATIVE [facility] [employer] Work Phone: Comment on above: (Positive cutoff 100 ng/mL) Oxycodone Screen, Ur Negative NEGATIVE [employer] Phone: Comment on above: (Positive cutoff 100 ng/mL) Phencyclidine, Urine Negative NEGATIVE [employer] Phone: Comment on above: (Positive cutoff 25 ng/mL) Propoxyphene, Urine Negative NEGATIVE [facility] Phone: Comment on above: (Positive cutoff 300 ng/mL) Test Information NOT REPORTED [facility] Phone: Tricyclic Antidepressants, Urine Negative NEGATIVE [facility] Phone: Comment on above: (Positive cutoff 300 ng/mL) Drug screen results are to be used for medical purposes only. All positive results are unconfirmed. Testing for employment or legal uses should be sent to a reference laboratory for confirmation. [facility] Phone: HCG ( test) Ql (U)o n 03-03-2021 HCG.beta subunit [Moles/Vol] Positive [facility] Interpretation and review of laboratory results Abnormal [facility] All internal control s were present [facility] POCT ALERE DRUG SCREENon Amphetamine (AMP), poct Negative [facility] Barbiturates (BAR), poct Negative [facility] Buprenorphine Glucuronide (BUPG),poct Positive [facility] COCAINE (NADIRA), POCT Negative [facility] Ecstasy (MDMA), poct Negative [facility] Interpretation and review of laboratory results Normal [facility] Marijuana (THC), poct Negative [facility] Comment on above: temp 90 urine was no t witnessed Methadone (MTD), poct Negative [facility] Methamphetamine (mAMP/MET), poct Negative [facility] Nortripyline (TCA), poct Negative [facility] Opiate (OPI), poct Negative [facility] OXAZEPAM (BZO),POCT Negative [facility] Oxycodone (OXY), poct Negative [facility] Phencyclidine (PCP), poct Negative [facility] Propoxyphene (PPX), poct Negative [facility] All internal control s were present [facility] POCT ALERE DRUG SCREENon Amphetamine (AMP), [...] All internal control s were present [facility] POCT ALERE DRUG SCREENOrdere d By: Radha Benavides on 01-29-2021 Amphetamine (AMP), poct Negative [facility] Barbiturates (BAR), poct Negative [facility] Buprenorphine Glucuronide (BUPG),poct Positive [facility] COCAINE (NADIRA), POCT Negative [facility] Ecstasy (MDMA), poct Negative [facility] Interpretation and review of laboratory results Normal [facility] Marijuana (THC), poct Negative [facility] Comment on above: temperature is 94, [...] All internal control s are positive [facility] POCT URINE DIPSTICK AUTOMATE DOrdered By: Radha Benavides on 01-29-2021 Amorphous sediment LM Ql (Urine sed) not tested [facility] Appearance (U) cloudy [facility] Bacteria LM Ql (Urine sed) not tested [facility] Bilirubin Ql (U) Negative [facility] Casts LM.LPF (Urine sed) [#/Area] not tested [facility] Color (U) yellow [facility] Crystals LM Nom (Urine sed) not tested [facility] Epithelial cells.squamous LM.HPF (Urine sed) [#/Area] not tested [facility] Flow cytometry specialist review Malik (Unsp spec) [Interp] not tested [facility] Glucose Auto test strip (U) [Mass/Vol] Negative mg/dL [facility] Interpretation and review of laboratory results Abnormal [facility] Ketones [Mass/Vol] Negative mg/dL [facility] Leukocyte esterase Qn (U) not tested [facility] Leukocyte esterase Test strip Ql (U) large [facility] Microscopic observation Gram stain Nom (Bronch spec) not tested [facility] Nitrite Ql (U) Positive [facility] pH (U) 5.5 [pH] [facility] Protein Ql (U) trace mg/dL [facility] RBC LM.HPF (Urine sed) [#/Area] not tested [facility] RBC Ql (U) trace-lysed [facility] Specific gravity (U) [Rel density] >=1.030 [facility] Transitional cells LM Ql (Urine sed) not tested [facility] Urobilinogen Qn (U) 0.2 [facility] WBC LM.HPF (Urine sed) [#/Area] not tested [facility] No internal control [facility] POCT ALERE DRUG SCREENOrdere d By: Radha Benavides on 01-01-2021 Amphetamine (AMP), poct Negative [facility] Barbiturates (BAR), poct Negative [facility] Buprenorphine Glucuronide (BUPG),poct Positive [facility] COCAINE (NADIRA), POCT Negative [facility] Ecstasy (MDMA), poct Negative [facility] Interpretation and review of laboratory results [...] [facility] Propoxyphene (PPX), poct Negative [facility] All internal control s were present [facility] POCT ALERE DRUG SCREENOrdere d By: Radha Benavides on 12-04-2020 Amphetamine (AMP), poct Negative [facility] Barbiturates (BAR), poct Negative [facility] Buprenorphine Glucuronide (BUPG),poct Positive [facility] COCAINE (NADIRA), POCT Negative [facility] Ecstasy (MDMA), poct Negative [facility] Interpretation and review of laboratory results Normal [facility] Marijuana (THC), poct Negative [...] [facility] Propoxyphene (PPX), poct Negative [facility] All internal control s were present [facility] POCT ALERE DRUG SCREENOrdere d By: Radha Benavides on 11-20-2020 Amphetamine (AMP), poct Negative [facility] Barbiturates (BAR), poct Negative [facility] Buprenorphine Glucuronide (BUPG),poct Positive [...] System All internal control s are positive [facility] POCT ALERE DRUG SCREENOrdere d By: Radha Benavides on 11-06-2020 Amphetamine (AMP), poct Negative [facility] [...] [facility] Propoxyphene (PPX), poct Negative [facility] All internal control s are positive [facility] POCT ALERE DRUG SCREENon Amphetamine (AMP), [...] System All internal control s are positive [facility] POCT ALERE DRUG SCREENon Amphetamine (AMP), poct Negative [facility] Barbiturates (BAR), poct Negative [facility] Buprenorphine Glucuronide (BUPG),poct Positive [facility] COCAINE (NADIRA), POCT Negative [facility] [facility] Ecstasy (MDMA), poct Negative [facility] Interpretation and review of laboratory results Normal [facility] Methadone (MTD), poct Negative [facility] Methamphetamine (mAMP/MET), poct Negative [facility] Nortripyline (TCA), poct Negative [facility] Opiate (OPI), poct Negative [facility] OXAZEPAM (BZO),POCT Negative [facility] Oxycodone (OXY), poct Negative [facility] Phencyclidine (PCP), poct Negative [facility] Propoxyphene (PPX), poct Negative [facility] All internal control s are positive [facility] POCT ALERE DRUG SCREENon Amphetamine (AMP), [...] [facility] Methamphetamine (mAMP/MET), poct Negative [facility] Nortripyline (TCA), poct Negative [facility] Opiate (OPI), poct Negative [facility] OXAZEPAM (BZO),POCT Negative [facility] Oxycodone (OXY), poct Negative [facility] Phencyclidine (PCP), poct Negative [facility] Propoxyphene (PPX), poct Negative [facility] All internal control s were present [facility] TSH W/FT4 REFLEXon TSH Qn 0.911 m[IU]/L [facility] Comment on above: Testing performed at [address] VITAMIN B12on 10-02-2020 Cobalamin (Vitamin B12) [Mass/Vol] 541 pg/mL 239 - 931 PG/ML [facility] Comment on above: Testing performed at [address] VITAMIN D (25-HYDROXY,TOTAL) on 10-02-2020 25-Hydroxyvitamin D2+25-Hydroxyvitamin D3 [Mass/Vol] 27.2 NG/ML [facility] Comment on above: DEFICIENT <20 NG/ML INSUFFICIENT 20-<30 NG/ML SUFFICIENT 30-100 NG/ML POTENTIAL TOXICITY >100 NG/ML Testing performed at [address] HEPATITIS A IGM ABon 021 HAV IgM IA Ql Negative [facility] Comment on above: Reference range: Neg ative PERFORMED AT [facility] POCT ALERE DRUG SCREENon Amphetamine (AMP), poct Negative [facility] Barbiturates (BAR), poct Negative [facility] Buprenorphine Glucuronide (BUPG),poct Postive [facility] Comment on above: Active prescription for Dr. Cox COCAINE (NADIRA), POCT Negative [facility] Ecstasy (MDMA), poct Negative [facility] Interpretation and review of laboratory results Normal [facility] Marijuana (THC), poct Negative [facility] Comment on above: Temp. 94. Collection not witnessed. Methadone (MTD), poct Negative [facility] Methamphetamine (mAMP/MET), poct Negative [facility] Nortripyline (TCA), poct Negative [facility] Opiate (OPI), poct Negative [facility] OXAZEPAM (BZO),POCT Negative [facility] Oxycodone (OXY), poct Negative [facility] Phencyclidine (PCP), poct Negative [facility] Propoxyphene (PPX), poct Negative [facility] All internal control s are positive. [facility] POCT URINE PREGNANCYon 09-29 HCG.beta subunit Qn Negative [facility] Interpretation and review of laboratory results Normal [facility] All internal control s are positive. [facility] HEPATITIS A, B, Con 09-27-19 21 HBV surface Ag IA Ql Negative NEGATIVE [facility] Hep A AB (IGG + IGM) Positive Abnormal NEGATIVE [facility] Comment on above: Specimen is positive for HAV, sent to reference lab for HAVAb, IgM. Positive indicates a reactive sample and the presence of HAV Ab, individual has been previously infected or is presumed to be immune to HAV infection. HEP B CORE AB,TOTAL(IGG+IGM) Negative NEGATIVE [facility] Hep B Surf AB Negative Abnormal POSITIVE [facility] Comment on above: Clinical Interpretation of Immune Status Negative: patient is considered to be not immune to infection with HBV Intermediate: unable to determine if anti-HBs is present at levels consistent with immunity Positive: anti-HBs detected, patient is considered to be immune to infection with HBV HEP C AB Negative NEGATIVE [facility] Interpretation and review of laboratory results Abnormal [facility] CBC, EDIF, PLATELETon 2020 Band form neutrophils/100 WBC (Bld) <10% BANDS PRESENT [facility] Differential cell count method Nom (Bld) MANUAL DIFF % [facility] Eosinophils/100 WBC (Bld) 3 % 0 - 7.0 % [facility] Erythrocyte distribution width (RBC) [Ratio] 13.6 % 11.5 - 14.5 % [facility] Hematocrit (Bld) [Volume fraction] 41.3 % 36.0 - 48.0 % [facility] Hemoglobin (Bld) [Mass/Vol] 14.2 g/dL [facility] Immature granulocytes/100 WBC (Bld) 4 % [facility] Interpretation and review of laboratory results Abnormal [facility] Lymphocytes/100 WBC (Bld) 50 % 20.5 - 51.1 % [facility] MCH (RBC) [Entitic mass] 32.0 pg 26.0 - 35.0 PG [facility] MCHC (RBC) [Mass/Vol] 34.4 g/dL [facility] MCV (RBC) [Entitic vol] 92.8 fL [facility] Monocytes/100 WBC (Bld) 4 % 1.7 - 10.0 % [facility] Neutrophils/100 WBC (Bld) 39 % Low 42.2 - 75.2 % [facility] Platelet mean volume (Bld) [Entitic vol] 10.4 fL [facility] Platelet morphology finding Nom (Bld) ADEQUATE [facility] Comment on above: Testing performed at [place], [place] [address] Platelets (Bld) [#/Vol] 192 10*3/uL 130.0 - 400.0 10*3/uL [facility] RBC (Bld) [#/Vol] 4.45 10*6/uL 4.0 - 5.4 10*6/uL [facility] RBC morphology finding Nom (Bld) NORMAL [facility] WBC (Bld) [#/Vol] 6.6 10*3/uL 3.6 - 11.0 10*3/uL [facility] COMPREHENSIVE METABOLIC PANE Antwon 09-25-2020 Albumin [Mass/Vol] 4.3 G/dl 3.5 - 5.0 G/dl [facility] Albumin/Globulin [Mass ratio] 1.3 {ratio} [facility] ALP [Catalytic activity/Vol] 68 U/L [facility] ALT [Catalytic activity/Vol] 11 U/L <35 IU/L [facility] AST [Catalytic activity/Vol] 26 U/L [facility] Bilirubin [Mass/Vol] 0.3 mg/dL [facility] Calcium [Mass/Vol] 9.4 mg/dL [facility] Chloride [Moles/Vol] 102 mmol/L [facility] Comment on above: Please note: Triglyc eride levels of 600mg/dL or higher may positively bias chloride results by approximately 2.1 mmol CO2 [Moles/Vol] 26 mmol/L [facility] Creatinine [Mass/Vol] 0.80 mg/dL [facility] GFR/1.73 sq M predicted among blacks MDRD (S/P/Bld) [Vol rate/Area] mL/min/{1.73_m2} ml/min/1.73s q.m [facility] GFR/1.73 sq M predicted among non-blacks MDRD (S/P/Bld) [Vol rate/Area] mL/min/{1.73_m2} ml/min/1.73s q.m [facility] GFR/1.73 sq M predicted among non-blacks MDRD (S/P/Bld) [Vol rate/Area] Average GFR for 20-29 years old = 116. [facility] Comment on above: Chronic Kidney disea se, GFR = <60. Kidney failure, GFR = <15. The GFR estimate is not adjusted for extreme body surface area or acute process, nor has it been validated for women or ethnic groups other than and . Testing performed at [place] [address] Glucose post fast [Mass/Vol] 77 mg/dL [facility] Comment on above: NORMAL <100 mg/dL PREDIABETES 101-126 mg/dL DIABETES 126 mg/dL or higher Potassium [Moles/Vol] 4.3 mmol/L [facility] Protein [Mass/Vol] 7.5 g/dL [facility] Sodium [Moles/Vol] 137 mmol/L [facility] Urea nitrogen [Mass/Vol] 13 mg/dL [facility] HIV 1 AND 2 ANTIBODIESon HIV 1+2 Ab IA Ql NONREACTIVE NONREACTIVE [facility] Comment on above: Testing performed at [place], [place] [address] [facility] Basic Metabolic Panel w/ Ref rory to MGon 01-22-2020 Anion gap [Moles/Vol] 10 mmol/L 9 - 17 mmol/L [place] Bun/Cre Ratio 12 [place] Calcium [Mass/Vol] 10.6 mg/dL High 8.6 - 10. 4 mg/dL [place] Chloride [Moles/Vol] 101 mmol/L 98 - 10 7 mmol/L [place] CO2 [Moles/Vol] 25 mmol/L 20 - 31 mmol/L [place] Creatinine [Mass/Vol] 0.85 mg/dL 0.5 - 0.9 mg/dL [place] GFR >60 >60 mL/min [place] GFR Non- >60 >60 mL/min [place] GFR/1.73 sq M predicted among non-blacks MDRD (S/P/Bld) [Vol rate/Area] [place] Comment on above: Average GFR for 20-2 9 years old: 116 mL/min/1.73sq m Chronic Kidney Disease: <60 mL/min/1.73sq m Kidney failure: <15 mL/min/1.73sq m eGFR calculated using average adult body mass. Additional eGFR calculator available at: http://www.[employer]/multiple_crcl_2012.htm GFR/1.73 sq M predicted among non-blacks MDRD (S/P/Bld) [Vol rate/Area] NOT REPORTED [place] Glucose [Mass/Vol] 93 mg/dL 70 - 99 mg/dL [place] Interpretation and review of laboratory results Abnormal [place] Potassium [Moles/Vol] 4.2 mmol/L 3.7 - 5.3 mmol/L [place] Sodium [Moles/Vol] 136 mmol/L 135 - 144 mmol/L [place] Urea nitrogen [Mass/Vol] 10 mg/dL 6 - 20 mg/dL [place] CBC Auto Differentialon 07-0 Basophils (Bld) [#/Vol] 0.10 10*3/uL [place] Basophils/100 WBC (Bld) 1 % 0 - 2 % [place] Differential Type YES [place] Eosinophils (Bld) [#/Vol] 0.20 10*3/uL [place] Eosinophils/100 WBC (Bld) 2 % 0 - 5 % [place] Erythrocyte distribution width (RBC) [Ratio] 14.1 % 12.1 - 15.2 % [place] Hematocrit (Bld) [Volume fraction] 41.2 % 36 - 46 % [place] Hemoglobin (Bld) [Mass/Vol] 14.3 g/dL 12 - 16 g/dL [place] Lymphocytes (Bld) [#/Vol] 2.50 10*3/uL [place] Lymphocytes/100 WBC (Bld) 37 % 15 - 40 % [place] MCH (RBC) [Entitic mass] 31.7 pg 26 - 34 pg [place] MCHC (RBC) [Mass/Vol] 34.8 g/dL 31 - 37 g/dL [place] MCV (RBC) [Entitic vol] 91.3 fL 80 - 100 fL [place] Monocytes (Bld) [#/Vol] 0.40 10*3/uL [place] Monocytes/100 WBC (Bld) 6 % 4 - 8 % [place] Platelet mean volume (Bld) [Entitic vol] NOT REPORTED 6 - 12 fL [place] Platelets (Bld) [#/Vol] NOT REPORTED [place] Platelets (Bld) [#/Vol] 198 10*3/uL [place] RBC (Bld) [#/Vol] 4.51 10*6/uL 4 - 5.2 m/uL [place] RBC morphology finding Nom (Bld) NOT REPORTED [place] Segmented neutrophils/100 WBC (Bld) 54 % 47 - 75 % [place] Segs Absolute 3.60 [place] WBC (Bld) [#/Vol] 6.6 10*3/uL [place] WBC (Bld) [#/Vol] NOT REPORTED per 100 WBC [place] WBC Morphology NOT REPORTED [place] HCG Qualitative, Serumon hCG Qual Negative NEGATIVE [place] Comment on above: Specimens with hCG l evels near the threshold of the test (25 mIU/mL) may give a negative or indeterminate result. In such cases, another test should be performed with a new specimen in 48-72 hours. If early is suspected clinically in this setting, correlation with quantitative serum b-hCG level is suggested. [facility] the use of plasma for this test. This has not been cleared or approved by the U.S. Food and Drug Administration. The FDA has determined that such clearance is not necessary. Otheron 01-22-2020 Immature granulocytes (Bld) [#/Vol] NOT REPORTED [place] XR CHEST PORTABLEon 01-22-20 EXAM: Portable chest REASON FOR EXAM: Productive cough for a week with headache for 3 days. TECHNIQUE: A portable frontal view of the chest was obtained. COMPARISON: None. FINDINGS: The lungs are well-inflated and clear. The heart and mediastinum are normal. There is no mass or pathologic adenopathy. Osseous structures are normal. [place] Abiodun, Mhpn Incoming Radiant Results From [employer] - 01/22/2020 3:05 PM EDT EXAM: Portable chest REASON FOR EXAM: Productive cough for a week with headache for 3 days. TECHNIQUE: A portable frontal view of the chest was obtained. COMPARISON: None. FINDINGS: The lungs are well-inflated and clear. The heart and mediastinum are normal. There is no mass or pathologic adenopathy. Osseous structures are normal. IMPRESSION: No acute cardiopulmonary process. [place] No acute cardiopulmo nary process. [place] Wet prep, genitalon 12-18-19 Direct Exam CLUE CELLS SEEN Abnormal [place] Direct Exam NO TRICHOMONAS SEEN [place] Direct Exam NO YEAST OBSERVED [place] Interpretation and review of laboratory results Abnormal [place] Special Requests NOT REPORTED [place] Specimen Description .VAGINAL SPECIMEN [place] Hepatic Function Panelon Albumin [Mass/Vol] 4.1 g/dL 3.5 - 5.2 g/dL [place] Albumin/Globulin [Mass ratio] 1.3 {ratio} [place] ALP [Catalytic activity/Vol] 61 U/L 35 - 104 U/L [place] ALT [Catalytic activity/Vol] 9 U/L 5 - 33 U/L [place] AST [Catalytic activity/Vol] 14 U/L <32 [place] Bilirubin Ql (U) 0.25 mg/dL Low 0.3 - 1.2 mg/dL [place] Bilirubin, Indirect CANNOT BE CALCULATED 0 - 1 mg/dL [place] Bilirubin.direct [Mass/Vol] mg/dL <0.31 mg/dL [place] Globulin (S) [Mass/Vol] NOT REPORTED 1.5 - 3.8 g/dL [place] Interpretation and review of laboratory results Abnormal [place] Protein [Mass/Vol] 7.2 g/dL 6.4 - 8.3 g/dL [place] CBC Auto Differentialon 05-0 Basophils (Bld) [#/Vol] 0.00 10*3/uL [place] Basophils/100 WBC (Bld) 0 % 0 - 2 % [place] Differential Type YES [place] Eosinophils (Bld) [#/Vol] 0.20 10*3/uL [place] Eosinophils/100 WBC (Bld) 2 % 0 - 5 % [place] Erythrocyte distribution width (RBC) [Ratio] 12.9 % 12.1 - 15.2 % [place] Hematocrit (Bld) [Volume fraction] 41.0 % 36 - 46 % [place] Hemoglobin (Bld) [Mass/Vol] 13.8 g/dL 12 - 16 g/dL [place] Interpretation and review of laboratory results Abnormal [place] Lymphocytes (Bld) [#/Vol] 1.60 10*3/uL [place] Lymphocytes/100 WBC (Bld) 13 % Low 15 - 40 % [place] MCH (RBC) [Entitic mass] 30.9 pg 26 - 34 pg [place] MCHC (RBC) [Mass/Vol] 33.8 g/dL 31 - 37 g/dL [place] MCV (RBC) [Entitic vol] 91.4 fL 80 - 100 fL [place] Monocytes (Bld) [#/Vol] 0.90 10*3/uL [place] Monocytes/100 WBC (Bld) 7 % 4 - 8 % [place] Platelet mean volume (Bld) [Entitic vol] NOT REPORTED 6 - 12 fL [place] Platelets (Bld) [#/Vol] NOT REPORTED [place] Platelets (Bld) [#/Vol] 250 10*3/uL [place] RBC (Bld) [#/Vol] 4.48 10*6/uL 4 - 5.2 m/uL [place] RBC morphology finding Nom (Bld) NOT REPORTED [place] Segmented neutrophils/100 WBC (Bld) 78 % High 47 - 75 % [place] Segs Absolute 9.30 High [place] WBC (Bld) [#/Vol] NOT REPORTED per 100 WBC [place] WBC (Bld) [#/Vol] 12.0 10*3/uL [place] WBC Morphology NOT REPORTED [place] Comprehensive Metabolic Pane l w/ Reflex to MGon 11-16-2019 Albumin [Mass/Vol] 4.4 g/dL 3.5 - 5.2 g/dL [place] Albumin/Globulin [Mass ratio] NOT REPORTED [place] ALP [Catalytic activity/Vol] 82 U/L 35 - 104 U/L [place] ALT [Catalytic activity/Vol] 7 U/L 5 - 33 U/L [place] Anion gap [Moles/Vol] 11 mmol/L 9 - 17 mmol/L [place] AST [Catalytic activity/Vol] 12 U/L <32 [place] Bilirubin Ql (U) 0.53 mg/dL 0.3 - 1.2 mg/dL [place] Bun/Cre Ratio 12 [place] Calcium [Mass/Vol] 10.2 mg/dL 8.6 - 10. 4 mg/dL [place] Chloride [Moles/Vol] 100 mmol/L 98 - 10 7 mmol/L [place] CO2 [Moles/Vol] 25 mmol/L 20 - 31 mmol/L [place] Creatinine [Mass/Vol] 0.83 mg/dL 0.5 - 0.9 mg/dL [place] GFR >60 >60 mL/min [place] GFR Non- >60 >60 mL/min [place] GFR/1.73 sq M predicted among non-blacks MDRD (S/P/Bld) [Vol rate/Area] [place] Comment on above: Average GFR for 20-2 9 years old: 116 mL/min/1.73sq m Chronic Kidney Disease: <60 mL/min/1.73sq m Kidney failure: <15 mL/min/1.73sq m eGFR calculated using average adult body mass. Additional eGFR calculator available at: http://www.[employer]/multiple_crcl_2012.htm GFR/1.73 sq M predicted among non-blacks MDRD (S/P/Bld) [Vol rate/Area] NOT REPORTED [place] Glucose [Mass/Vol] 106 mg/dL High 70 - 99 mg/dL [place] Interpretation and review of laboratory results Abnormal [place] Potassium [Moles/Vol] 4.0 mmol/L 3.7 - 5.3 mmol/L [place] Protein [Mass/Vol] 8.5 g/dL High 6.4 - 8.3 g/dL [place] Sodium [Moles/Vol] 136 mmol/L 135 - 144 mmol/L [place] Urea nitrogen [Mass/Vol] 10 mg/dL 6 - 20 mg/dL [place] HCG Qualitative, Serumon hCG Qual Negative NEGATIVE [place] Comment on above: Specimens with hCG l evels near the threshold of the test (25 mIU/mL) may give a negative or indeterminate result. In such cases, another test should be performed with a new specimen in 48-72 hours. If early is suspected clinically in this setting, correlation with quantitative serum b-hCG level is suggested. [employer] has confirmed the use of plasma for this test. This has not been cleared or approved by the U.S. Food and Drug Administration. The FDA has determined that such clearance is not necessary. Lactic Acidon 11-16-2019 Lactate [Moles/Vol] 0.6 mmol/L 0.5 - 2. 2 mmol/L [place] Lipaseon 11-16-2019 Lipase [Catalytic activity/Vol] 13 U/L 13 - 60 U/L [place] Otheron 11-16-2019 Immature granulocytes (Bld) [#/Vol] NOT REPORTED 0 % [place] US NON OB TRANSVAGINALon 1. Minor free fluid in the cul-de-sac is seen favoring the right side. 2. Unremarkable appearing uterus and endometrium. 3. Both ovaries show multiple simple appearing follicles with the largest measuring in the area of 1 cm each. There is no other ovarian or pelvic pathology appreciated. [place] [facility], [facility] Incoming Radiant Results From Level - 11/16/2019 12:43 PM EDT EXAM: US [...] no other ovarian or pelvic pathology appreciated. [place] EXAM: US NON OB TRANSVAGINAL REASON [...] measuring 0.9 cm. No torsion is seen. [place] Basic Metabolic Panelon 10-17 Anion gap [Moles/Vol] 10 mmol/L 9 - 17 mmol/L [place] Bun/Cre Ratio 14 [place] Calcium [Mass/Vol] 9.1 mg/dL 8.6 - 10. 4 mg/dL [place] Chloride [Moles/Vol] 105 mmol/L 98 - 10 7 mmol/L [place] CO2 [Moles/Vol] 24 mmol/L 20 - 31 mmol/L [place] Creatinine [Mass/Vol] 0.87 mg/dL 0.5 - 0.9 mg/dL [place] GFR >60 >60 mL/min [place] GFR Non- >60 >60 mL/min [place] Glucose [Mass/Vol] 91 mg/dL 70 - 99 mg/dL [place] Potassium [Moles/Vol] 4.4 mmol/L 3.7 - 5.3 mmol/L [place] Sodium [Moles/Vol] 139 mmol/L 135 - 144 mmol/L [place] Urea nitrogen [Mass/Vol] 12 mg/dL 6 - 20 mg/dL [place] CBCon 11-08-2019 Erythrocyte distribution width (RBC) [Ratio] 13.0 % 11.8 - 14.4 % [place] Hematocrit (Bld) [Volume fraction] 43.9 % 36.3 - 47.1 % [place] Hemoglobin (Bld) [Mass/Vol] 14.4 g/dL 11.9 - 15.1 g/dL [place] MCH (RBC) [Entitic mass] 30.9 pg 25.2 - 33.5 pg [place] MCHC (RBC) [Mass/Vol] 32.8 g/dL 28.4 - 34.8 g/dL [place] MCV (RBC) [Entitic vol] 94.2 fL 82.6 - 102.9 fL [place] Platelet mean volume (Bld) [Entitic vol] 11.8 fL 8.1 - 13.5 fL [place] Platelets (Bld) [#/Vol] 205 10*3/uL [place] RBC (Bld) [#/Vol] 4.66 10*6/uL 3.95 - 5.1 1 m/uL [place] WBC (Bld) [#/Vol] 0.0 10*3/uL 0.0 per 10 0 WBC [place] WBC (Bld) [#/Vol] 10.0 10*3/uL [place] HCG Qualitative, Serumon hCG Qual Negative NEGATIVE [place] Comment on above: Specimens with hCG l evels near the threshold of the test (25 mIU/mL) may give a negative or indeterminate result. In such cases, another test should be performed with a new specimen in 48-72 hours. If early is suspected clinically in this setting, correlation with quantitative serum b-hCG level is suggested. [facility] the use of plasma for this test. This has not been cleared or approved by the U.S. Food and Drug Administration. The FDA has determined that such clearance is not necessary. HIV Screenon 11-08-2019 HIV Ag/Ab NONREACTIVE NONREACTIVE [place] Comment on above: No laboratory eviden ce of HIV infection. If acute HIV infection is suspected, consider testing for HIV-1 RNA. Hepatitis Panel, Acuteon HAV IgM IA Qn (S) NONREACTIVE NONREACTIVE [place] Hep B Core Ab, IgM NONREACTIVE NONREACTIVE [place] Hepatitis B Surface Ag NONREACTIVE NONREACTIVE [place] Hepatitis C Ab NONREACTIVE NONREACTIVE [place] Comment on above: The hepatitis C [...] predicted among non-blacks MDRD (S/P/Bld) [Vol rate/Area] [place] Comment on above: Stage 1: Some [...] body mass. Additional eGFR calculator available at: http://www.[employer].opendorse/multiple_crcl_2012.htm Microscopic Urinalysison Amorphous, UA NOT REPORTED None [employer] Work Phone: Bacteria, UA NOT REPORTED None [employer] Work Phone: Casts UA NOT REPORTED /LPF [employer] [employer] Work Phone: Crystals UA NOT REPORTED None /HPF [employer] Work Phone: Epithelial Cells UA NOT REPORTED /HPF [facility] Work Phone: Mucus, UA NOT REPORTED None [employer] Work Phone: Other Observations UA NOT REPORTED NOT REQ. [facility] Work Phone: RBC (U) [#/Vol] NOT REPORTED [employer] Work Phone: Renal Epithelial, Urine NOT REPORTED 0 /HPF [employer] Work Phone: Trichomonas, UA NOT REPORTED None [facility] Phone: WBC, UA 2 TO 5 0 /HPF [employer] Work Phone: Yeast, UA NOT REPORTED None [employer] Work Phone: - [employer] Work Phone: , Urineon 0 Beta HCG ( test) Ql (U) Negative NEGATIVE [facility] Phone: Urinalysison 08-24-2019 Bilirubin Urine Negative NEGATIVE [facility] Phone: Color, UA YELLOW YELLOW [facility] Phone: [phone] Glucose, Ur Negative NEGATIVE [facility] Phone: Interpretation and review of laboratory results Abnormal [facility] Phone: Ketones Ql (U) Negative NEGATIVE [facility] Phone: Leukocyte esterase Test strip Ql (U) 1+ Abnormal NEGATIVE [facility] Phone: Nitrite, Urine Negative NEGATIVE [employer] Work Phone: pH, UA 7.0 [employer] Work Phone: Protein (U) [Mass/Vol] Negative NEGATIVE [employer] Work Phone: Specific [place], UA 1.010 [employer] Work Phone: Turbidity UA CLEAR CLEAR [facility] Phone: Urinalysis Comments [facility] Phone: Urine Hgb Negative NEGATIVE [employer] Work Phone: Urobilinogen, Urine Normal Normal [facility] [employer] Work Phone: CT Head WO Contraston 2018 No acute intracrania l abnormality. [place], [place] EXAMINATION: CT OF T HE HEAD WITHOUT [...] of the visualized skull or soft tissues. [place], [place] Abiodun, pn Incoming Radiant Results From [employer] - 05/18/2019 9:40 PM EDT EXAMINATION: CT [...] soft tissues. IMPRESSION: No acute intracranial abnormality. [employer]- [place], [place] HCG,Urineon 10-17-2018 HCG.beta subunit ( test) Ql (U) Negative Normal Negative [facility] Comment on above: Result Comment: PERF ORMED BY: [address] [place] [id number] PATHOLOGIST FLORAL DESIGN TEACHER RAQUEL WATSON M.D. Performed By: #### U HCG #### [facility] [address] [place]twon 10-17-2018 L ----- Specimen: [id number] Received: 10/17/18 Status: REINALDO Finn Num: [id number] Spec Type: Surgical Subm Dr: Harshal Car Jr, DO Tissues: A Esophagus Biopsy (DISTAL ESOPHAGUS) Procedures: HE Stain/2, Gross/Micro L4 Patient Age/Sex Location Account Attending Physician Christine Salcido Ace / [id number] Harshal Car Jr, DO SPEC NUM: [id number] RECD: 10/17/18 STATUS: REINALDO AGUSTIN NUM: [id number] [place]: 10/17/18 DR: Harshal Car Jr, ENTERED: 10/17/[address]: ARGENIS TYPE: Surgical DEPT: S ORDERED: [...] and PAS-positive. Microscopic examination confirms the diagnosis. [id number], [id number] A. Esophagus Bx - DISTAL ESOPHAGUS Specimen: [id number] Received: 10/17/18 Status: REINALDO Agustin Num: [id number] Spec Type: Surgical Subm Dr: Harshal aCr Jr, DO Tissues: A Esophagus Biopsy (DISTAL ESOPHAGUS) Procedures: HE Stain/2, Gross/Micro L4 Patient: Christine Salcido [id number] (Continued) Signed (signature on file) Angie Barr MD 10/18/18 1520 [facility] CBC AUTO DIFFon 08-07-2018 Basophils #/vol (Bld) 0.1 103/ul Normal 0.0-0.1 [facility] Comment on above: Performed By: #### C BC #### [facility] [address] [place], [place] [address] Lm Hartman Basophils/100 WBC (Bld) 0.9 % Normal 0.2-2.0 [facility] Comment on above: Performed By: #### C BC #### [facility] [address] [place] [address] Lm Hartman Eosinophils #/vol (Bld) 0.1 103/ul Normal 0.0-0.7 [facility] Comment on above: Performed By: #### C BC #### [facility] [address] [place] [address] Lm Hartman Eosinophils/100 WBC (Bld) 1.0 % Normal 0.9-7.0 [facility] Comment on above: Performed By: #### C BC #### [facility] [address] [place] [address] Lm Hartman Erythrocyte distribution width Ratio (RBC) 11.9 % Normal 11.0-15.0 [facility] Comment on above: Performed By: #### C BC #### [facility] [address] [place] [address] Lm Hartman Hematocrit Volume Fraction (Bld) 44.4 % Normal 36.0-48.0 [facility] Comment on above: Performed By: #### C BC #### [facility] [address] [place] [address] Lm Hartman Hemoglobin mass conc (Bld) 15.5 g/dL Normal 12.0-16.0 [facility] Comment on above: Performed By: #### C BC #### [facility] [address] [place] [address] Lm Hartman IG # 0.05 10e3/ul Critically high 0.00-0.03 [facility] Comment on above: Performed By: #### C BC #### [facility] [address] [place] [address] Lm Ballen IG % 0.6 % Critically high 0.0-0.5 [facility] Comment on above: Performed By: #### C BC #### [facility] [address] [place] [address] Lm Hartman Lymphocytes #/vol (Bld) 2.6 103/ul Normal 1.2-3.8 [facility] Comment on above: Performed By: #### C BC #### [facility] [address] [place] [address] Lm Hartman Lymphocytes/100 WBC (Bld) 28.9 % Normal 20.5-60.0 [facility] Comment on above: Performed By: #### C BC #### [facility] [address] [place] [address] Lm Hartman MANUAL DIFF REQ NO Normal [facility] Comment on above: Performed By: #### C BC #### [facility] [address] [place] [address] Lm Hartman MCH Entitic mass (RBC) 31.9 pg Normal 26.7-34.0 [facility] Comment on above: Performed By: #### C BC #### [facility] [address] [place] [address] Lm Hartman MCHC mass conc (RBC) 34.9 g/dL Normal 29.9-35.2 [facility] Comment on above: Performed By: #### C BC #### [facility] [address] [place] [address] Lm Hartman MCV Entitic volume (RBC) 91.4 fL Normal 81.0-99.0 [facility] Comment on above: Performed By: #### C BC #### [facility] [address] [place] [address] Lm Hartman Monocytes #/vol (Bld) 0.4 103/ul Normal 0.3-0.8 [facility] Comment on above: Performed By: #### C BC #### [facility] [address] [place] [address] Lm Hartman Monocytes/100 WBC (Bld) 3.9 % Normal 1.7-12.0 [facility] Comment on above: Performed By: #### C BC #### [facility] [address] [place] [address] Lm Hartman Neutrophils #/vol (Bld) 5.9 103/ul Normal 1.4-6.5 [facility] Comment on above: Performed By: #### C BC #### [facility] [address] [place] [address] Lm Hartman Neutrophils/100 WBC (Bld) 64.7 % Normal 43.0-75.0 [facility] Comment on above: Performed By: #### C BC #### [facility] [address] [place], [place] [id number] Lm Hartman Platelet mean volume Entitic volume (Bld) 11.3 fL Normal 9.5-13.5 [facility] Comment on above: Performed By: #### C BC #### [facility] [address] [place], [place] [phone] Lm Hartman Platelets #/vol (Bld) 240 103/ul Normal 150-450 [facility] Comment on above: Performed By: #### C BC #### [facility] [address] [place] [address] Lm Ballen RBC #/vol (Bld) 4.86 106/ul Normal 4.20-5.40 [facility] Comment on above: Performed By: #### C BC #### [facility] [address] [place] [address] Lm Minnie WBC #/vol (Bld) 9.0 103/ul Normal 4.0-11.0 [facility] Comment on above: Performed By: #### C BC #### [facility] [address] [place], [place] [phone] Lm Hartman PROF 14(COMP METB)on 019 Albumin mass conc 4.8 g/dL Normal 3.5-5.0 [facility] Comment on above: Performed By: #### C MP, TSH #### [facility] [address] [place], [place] [phone] Lm Hartman Albumin/Globulin mass ratio 1.2 {ratio} Normal [facility] Comment on above: Performed By: #### C MP, TSH #### [facility] [address] [place], [place] [phone] Lmgerard Hartman ALP enzyme act/vol 87 U/L Normal 38-126 [facility] Comment on above: Performed By: #### C MP, TSH #### [facility] [address] [place], [place] [phone] Lmgerard Hartman ALT enzyme act/vol 18 U/L Normal 9-52 [facility] Comment on above: Performed By: #### C MP, TSH #### [facility] [address] [place] [id number] Lm Minnie Anion gap molar conc 13.2 mmol/L Normal [facility] Comment on above: Performed By: #### C MP, TSH #### [facility] [address] [place] [id number] Lm Minnie AST enzyme act/vol 13 U/L Critically low 14-36 [facility] Comment on above: Performed By: #### C MP, TSH #### [facility] [address] [place] [id number] Lm Minnie Bilirubin Ql (U) 0.4 mg/dL Normal 0.2-1.3 [facility] Comment on above: Performed By: #### C MP, TSH #### [facility] [address] [place] [address] Lm Minnie Calcium mass conc 9.7 mg/dL Normal 8.4-10.2 [facility] Comment on above: Performed By: #### C MP, TSH #### [facility] [address] [place] [id number] Lm Minnie Chloride molar conc 102 mmol/L Normal 98-107 [facility] Comment on above: Performed By: #### C MP, TSH #### [facility] [address] [place] [address] Lm Minnie CO2 molar conc 30.1 mmol/L Critically high 22.0-30.0 [facility] Comment on above: Performed By: #### C MP, TSH #### [facility] [address] [place] [id number] Lm Minnie Creatinine mass conc 0.92 mg/dL Normal 0.52-1.04 [facility] Comment on above: Performed By: #### C MP, TSH #### [facility] [address] [place] [id number] Lm Minnie EGFR-AF NIGERIAN >60 Normal >=60 [facility] Comment on above: Performed By: #### C MP, TSH #### [facility] [address] [place] [address] Lm Minnie EGFR-NON AF NIGERIAN >60 Normal >=60 [facility] Comment on above: Performed By: #### C MP, TSH #### [facility] [address] [place] [address] Lm Minnie Globulin mass conc (S) 3.9 g/dL Normal [facility] Comment on above: Performed By: #### C MP, TSH #### [facility] [address] [place] [address] Lm Minnie Glucose mass conc 141 mg/dL Critically high 74-106 [facility] Comment on above: Performed By: #### C MP, TSH #### [facility] [address] [place] [address] Lm Minnie Potassium molar conc 4.3 mmol/L Normal 3.4-5.0 [facility] Comment on above: Performed By: #### C MP, TSH #### [facility] [address] [place] [address] Lm Minnie Protein mass conc 8.7 g/dL Critically high 6.1-8.2 [facility] Comment on above: Performed By: #### C MP, TSH #### [facility] [address] [place] [address] Lm Minnie Sodium molar conc 141 mmol/L Normal 137-145 [facility] Comment on above: Performed By: #### C MP, TSH #### [facility] [address] [place] [address] Lm Minnie Urea nitrogen mass conc 17.0 mg/dL Normal 7.0-17.0 [facility] Comment on above: Performed By: #### C MP, TSH #### [facility] [address] [place] [address] Lm Minnie Urea nitrogen/Creatinine mass ratio 18.5 mg/mg Normal [facility] Comment on above: Performed By: #### C MP, TSH #### [facility] [address] [place] [address] Lm Hartman TSHon 08-07-2018 Thyrotropin Qn 1.384 uIU/mL Normal 0.470-4.680 [facility] Comment on above: Performed By: #### C MP, TSH #### [facility] [address] [place], [place] [address] Lm Hartman Thyrotropin Qn SEE BELOW Normal [facility] Comment on above: Result Comment: <0.3 4 UIU/ml HYPERTHYROID 0.34-5.60 UIU/ml EUTHYROID >5.60 UIU/ml HYPOTHYROID Performed By: #### C MP, TSH #### [facility] [address] [place], [place] [address] Lm Hartman Vital Signs Date Time Vital Sign Value Performing Clinician Facility 11-29-2023 14:30-0400 Body temperature 98.6 [degF] [facility] [address] [place] [address] 11-29-2023 14:30-0400 Diastolic blood pressure 70 mm[Hg] [facility] [address] [place] [address] 11-29-2023 14:30-0400 Heart rate 78 /min [facility] [address] [place] [address] 11-29-2023 14:30-0400 Respiratory rate 16 /min [facility] [address] [place] [address] 11-29-2023 14:30-0400 SaO2% (BldA) [Mass fraction] 93 % [facility] [address] [place] [address] 11-29-2023 14:30-0400 Systolic blood pressure 102 mm[Hg] [facility] [address] [place] [address] 11-01-2023 13:53-0400 Body temperature 98.6 [degF] [facility] [address] [place] [address] 11-01-2023 13:53-0400 Diastolic blood pressure 63 mm[Hg] [facility] [address] [place] [address] 11-01-2023 13:53-0400 Heart rate 83 /min [facility] [address] [place] [address] 11-01-2023 13:53-0400 Systolic blood pressure 97 mm[Hg] [facility] [address] [place] [address] 09-26-2023 14:32-0400 Body temperature 97.81 [degF] [facility] [address] [place] [address] 09-26-2023 14:32-0400 Diastolic blood pressure 67 mm[Hg] [facility] 3 [facility] 09-26-2023 14:32-0400 Heart rate 84 /min [facility] 3 [facility] 09-26-2023 14:32-0400 Respiratory rate 16 /min [facility] 3 [facility] 09-26-2023 14:32-0400 SaO2% (BldA) [Mass fraction] 97 % [facility] 3 [facility] 09-26-2023 14:32-0400 Systolic blood pressure 103 mm[Hg] [facility] 3 [facility] 05-11-2022 08:36-0400 Body height 157.5 cm Radha DAVEY Work Phone: [facility] 05-11-2022 08:36-0400 Body mass index (BMI) [Ratio] 20.67 kg/m2 Radha Benavides APRN-RONN Work Phone: [facility] 05-11-2022 08:36-0400 Body temperature 98.29 [degF] Radha Benavides APRN-RADIOLOGIST Work Phone: [facility] 05-11-2022 08:36-0400 Body weight 51.26 kg Radha Benavides APRN-RONN Work Phone: [facility] 05-11-2022 08:36-0400 Diastolic blood pressure 70 mm[Hg] Radha Benavides APRN-RADIOLOGIST Work Phone: [facility] 05-11-2022 08:36-0400 Heart rate 86 /min Radha Benavides APRN-RADIOLOGIST Work Phone: [facility] [employer] 05-11-2022 08:36-0400 Respiratory rate 18 /min Radha Benavides APRN-RADIOLOGIST Work Phone: [facility] 05-11-2022 08:36-0400 SaO2% (BldA) [Mass fraction] 98 % Radha Benavides APRN-RADIOLOGIST Work Phone: [facility] 05-11-2022 08:36-0400 Systolic blood pressure 102 mm[Hg] Radha Benavides APRN-RADIOLOGIST Work Phone: [facility] 03-11-2022 09:56-0400 Body height 157.5 cm Radha Benavides APRN-RADIOLOGIST Work Phone: [facility] 03-11-2022 09:56-0400 Body mass index (BMI) [Ratio] 22.24 kg/m2 Radha Benavides ASSISTANT TECHNICIAN-RADIOLOGIST Work Phone: [facility] 03-11-2022 09:56-0400 Body weight 55.16 kg Radha Benavides ASSISTANT TECHNICIAN-RADIOLOGIST Work Phone: [facility] 03-11-2022 09:56-0400 Diastolic blood pressure 78 mm[Hg] Radha Benavides ASSISTANT TECHNICIAN-RADIOLOGIST Work Phone: [facility] 03-11-2022 09:56-0400 Heart rate 92 /min Radha Benavides ASSISTANT TECHNICIAN-RADIOLOGIST Work Phone: [facility] 03-11-2022 09:56-0400 SaO2% (BldA) [Mass fraction] 97 % Radha Benavides ASSISTANT TECHNICIAN-RADIOLOGIST Work Phone: [facility] 03-11-2022 09:56-0400 Systolic blood pressure 122 mm[Hg] Radha Benavides APRN-RADIOLOGIST Work Phone: [facility] 02-08-2022 08:55-0400 Body height 157.5 cm Radha Benavides ASSISTANT TECHNICIAN-RADIOLOGIST Work Phone: [facility] 02-08-2022 08:55-0400 Body mass index (BMI) [Ratio] 21.4 kg/m2 Radha Benavides ASSISTANT TECHNICIAN-RADIOLOGIST Work Phone: [facility] 02-08-2022 08:55-0400 Body weight 53.07 kg Radha Benavides APRN-RADIOLOGIST Work Phone: [facility] 02-08-2022 08:55-0400 Diastolic blood pressure 60 mm[Hg] Radha Benavides ASSISTANT TECHNICIAN-RADIOLOGIST Work Phone: [facility] 02-08-2022 08:55-0400 Heart rate 84 /min Radha Benavides ASSISTANT TECHNICIAN-RADIOLOGIST Work Phone: [facility] 02-08-2022 08:55-0400 SaO2% (BldA) [Mass fraction] 98 % Rdaha Benavides ASSISTANT TECHNICIAN-RADIOLOGIST Work Phone: [facility] 02-08-2022 08:55-0400 Systolic blood pressure 104 mm[Hg] Radha Benavides ASSISTANT TECHNICIAN-RADIOLOGIST Work Phone: [facility] 01-06-2022 08:45-0400 Body height 157.5 cm Radha Benavides ASSISTANT TECHNICIAN-RADIOLOGIST Work Phone: [facility] 01-06-2022 08:45-0400 Body mass index (BMI) [Ratio] 21.4 kg/m2 Radha Benavides ASSISTANT TECHNICIAN-RADIOLOGIST Work Phone: [facility] 01-06-2022 08:45-0400 Body weight 53.07 kg Radha Benavides ASSISTANT TECHNICIAN-RADIOLOGIST Work Phone: [facility] 01-06-2022 08:45-0400 Diastolic blood pressure 72 mm[Hg] Radha Benavides ASSISTANT TECHNICIAN-RADIOLOGIST Work Phone: [facility] 01-06-2022 08:45-0400 Heart rate 68 /min Radha Benavides ASSISTANT TECHNICIAN-RADIOLOGIST Work Phone: [facility] 01-06-2022 08:45-0400 SaO2% (BldA) [Mass fraction] 99 % Radha Benavides ASSISTANT TECHNICIAN-RADIOLOGIST Work Phone: [facility] 01-06-2022 08:45-0400 Systolic blood pressure 116 mm[Hg] Radha Benavides ASSISTANT TECHNICIAN-RADIOLOGIST Work Phone: [facility] 12-08-2021 12:58-0400 Body height 157.5 cm Radha Kennedy EUCEDAN-RADIOLOGIST Work Phone: [facility] [employer] [facility] 12-08-2021 12:58-0400 Body mass index (BMI) [Ratio] 21.14 kg/m2 Radha Kennedy EUCEDAN-RADIOLOGIST Work Phone: [facility] 12-08-2021 12:58-0400 Body temperature 98.2 [degF] Radha Kennedy EUCEDAN-RADIOLOGIST Work Phone: [facility] 12-08-2021 12:58-0400 Body weight 52.44 kg Radha Kennedy EUCEDAN-RADIOLOGIST Work Phone: [facility] 12-08-2021 12:58-0400 Diastolic blood pressure 82 mm[Hg] Radha Benavides ASSISTANT TECHNICIAN-RADIOLOGIST Work Phone: [facility] 12-08-2021 12:58-0400 Heart rate 66 /min Radha Kennedy EUCEDAN-RADIOLOGIST Work Phone: [facility] 12-08-2021 12:58-0400 SaO2% (BldA) [Mass fraction] 99 % Radha Kennedy EUCEDAN-RADIOLOGIST Work Phone: [facility] 12-08-2021 12:58-0400 Systolic blood pressure 128 mm[Hg] Radha Kennedy EUCEDAN-RADIOLOGIST Work Phone: [facility] 11-10-2021 13:22-0400 Body height 157.5 cm Radha Kennedy EUCEDAN-RADIOLOGIST Work Phone: [facility] 11-10-2021 13:22-0400 Body mass index (BMI) [Ratio] 20.85 kg/m2 Radha Loerassler ASSISTANT TECHNICIAN-RADIOLOGIST Work Phone: [facility] 11-10-2021 13:22-0400 Body weight 51.71 kg Radha Loerassler ASSISTANT TECHNICIAN-RADIOLOGIST Work Phone: [facility] 11-10-2021 13:22-0400 Diastolic blood pressure 74 mm[Hg] Radha Benavides ASSISTANT TECHNICIAN-RADIOLOGIST Work Phone: [employer] 11-10-2021 13:22-0400 Heart rate 107 /min Radha Benavides ASSISTANT TECHNICIAN-RADIOLOGIST Work Phone: [employer] 11-10-2021 13:22-0400 SaO2% (BldA) [Mass fraction] 99 % Radha Benavides ASSISTANT TECHNICIAN-RADIOLOGIST Work Phone: [employer] 11-10-2021 13:22-0400 Systolic blood pressure 118 mm[Hg] Radha Benavides ASSISTANT TECHNICIAN-RADIOLOGIST Work Phone: [employer] 10-15-2021 21:17-0400 Diastolic blood pressure 68 mm[Hg] Karlee Pool ASSISTANT TECHNICIAN - CNM Work Phone: [employer] 10-15-2021 21:17-0400 Heart rate 81 /min Karlee Pool ASSISTANT TECHNICIAN - CNM Work Phone: [employer] 10-15-2021 21:17-0400 Systolic blood pressure 112 mm[Hg] Karlee Pool ASSISTANT TECHNICIAN - CNM Work Phone: [employer] 10-15-2021 20:30-0400 Body temperature 98.01 [degF] Karlee Pool ASSISTANT TECHNICIAN - CNM Work Phone: [employer] 10-15-2021 20:30-0400 Respiratory rate 16 /min Karlee Pool ASSISTANT TECHNICIAN - CNM Work Phone: [employer] 10-05-2021 14:50-0400 Body temperature 98.29 [degF] Karlee Pool ASSISTANT TECHNICIAN - CNM Work Phone: [employer] 10-05-2021 14:50-0400 Diastolic blood pressure 72 mm[Hg] Karlee Pool ASSISTANT TECHNICIAN - CNM Work Phone: [employer] 10-05-2021 14:50-0400 Heart rate 90 /min Karlee Pool ASSISTANT TECHNICIAN - CNM Work Phone: [employer] 10-05-2021 14:50-0400 Respiratory rate 16 /min Karlee Hassan ASSISTANT TECHNICIAN - CNM Work Phone: [facility] 10-05-2021 14:50-0400 Systolic blood pressure 123 mm[Hg] Karlee Hassan ASSISTANT TECHNICIAN - CNM Work Phone: [facility] 09-14-2021 13:12-0500 Body height 157.5 cm Radha Kennedy EUCEDAN-RADIOLOGIST Work Phone: [employer] 09-14-2021 13:12-0500 Body mass index (BMI) [Ratio] 22.86 kg/m2 Radha Benavides ASSISTANT TECHNICIAN-RADIOLOGIST Work Phone: [employer] 09-14-2021 13:12-0500 Body temperature 96.91 [degF] Radha Loerassler ASSISTANT TECHNICIAN-RADIOLOGIST Work Phone: [employer] 09-14-2021 13:12-0500 Body weight 56.7 kg Radha Loeracuca EUCEDAN-RADIOLOGIST Work Phone: [employer] 09-14-2021 13:12-0500 Diastolic blood pressure 70 mm[Hg] Radha Loeracuca EUCEDAN-RADIOLOGIST Work Phone: [employer] 09-14-2021 13:12-0500 Heart rate 97 /min Radha Kennedy EUCEDAN-RADIOLOGIST Work Phone: [employer] 09-14-2021 13:12-0500 SaO2% (BldA) [Mass fraction] 97 % Radha Kennedy EUCEDAN-RADIOLOGIST Work Phone: [employer] 09-14-2021 13:12-0500 Systolic blood pressure 118 mm[Hg] Radha Loerassler ASSISTANT TECHNICIAN-RADIOLOGIST Work Phone: [employer] [facility] 06-16-2021 14:44-0500 Body height 157.5 cm Radha Loerassler ASSISTANT TECHNICIAN-RADIOLOGIST Work Phone: [employer] 06-16-2021 14:44-0500 Body mass index (BMI) [Ratio] 21.36 kg/m2 Radha Kennedy EUCEDAN-RADIOLOGIST Work Phone: [employer] 06-16-2021 14:44-0500 Body temperature 97.5 [degF] Radha Kennedy EUCEDAN-RADIOLOGIST Work Phone: [employer] 06-16-2021 14:44-0500 Body weight 52.98 kg Radha Benavides ASSISTANT TECHNICIAN-RADIOLOGIST Work Phone: [employer] 06-16-2021 14:44-0500 Diastolic blood pressure 62 mm[Hg] Radha Benavides ASSISTANT TECHNICIAN-RADIOLOGIST Work Phone: [employer] 06-16-2021 14:44-0500 Heart rate 89 /min Radha Kennedy QUICK-RADIOLOGIST Work Phone: [employer] [facility] 06-16-2021 14:44-0500 SaO2% (BldA) [Mass fraction] 99 % Radha Benavides ASSISTANT TECHNICIAN-RADIOLOGIST Work Phone: [employer] 06-16-2021 14:44-0500 Systolic blood pressure 102 mm[Hg] Radha Benavides ASSISTANT TECHNICIAN-RADIOLOGIST Work Phone: [employer] 06-12-2021 20:27-0500 Body mass index (BMI) [Ratio] 21.03 kg/m2 Juan Richards MD Work Phone: [email or web address] 06-12-2021 20:27-0500 Body temperature 98.29 [degF] Juan Richards MD Work Phone: [email or web address] 06-12-2021 20:27-0500 Body weight 52.16 kg Juan Richards MD Work Phone: [employer] 06-12-2021 20:27-0500 Diastolic blood pressure 59 mm[Hg] Juan Richards MD Work Phone: [employer] 06-12-2021 20:27-0500 Heart rate 82 /min Juan Richards MD Work Phone: [employer] 06-12-2021 20:27-0500 Respiratory rate 18 /min Juan Richards MD Work Phone: [employer] 06-12-2021 20:27-0500 SaO2% (BldA) [Mass fraction] 100 % Juan Richards MD Work Phone: [employer] 06-12-2021 20:27-0500 Systolic blood pressure 92 mm[Hg] Juan Richards MD Work Phone: [employer] 05-24-2021 13:58-0500 Body mass index (BMI) [Ratio] 19.81 kg/m2 Sarah Justice MD Work Phone: [employer] 05-24-2021 13:58-0500 Body temperature 98.6 [degF] Sarah Justice MD Work Phone: [employer] 05-24-2021 13:58-0500 Body weight 49.13 kg Sarah Justice MD Work Phone: [employer] 05-24-2021 13:58-0500 Diastolic blood pressure 61 mm[Hg] Sarah Justice MD Work Phone: [employer] 05-24-2021 13:58-0500 Heart rate 92 /min Sarah Justice MD Work Phone: [employer] 05-24-2021 13:58-0500 Respiratory rate 16 /min Sarah Justice MD Work Phone: [employer] 05-24-2021 13:58-0500 SaO2% (BldA) [Mass fraction] 100 % Sarah Justice MD Work Phone: [employer] 05-24-2021 13:58-0500 Systolic blood pressure 111 mm[Hg] Sarah Justice MD Work Phone: [employer] 04-08-2021 03:08-0400 Body mass index (BMI) [Ratio] 19.94 kg/m2 Juan Richards MD Work Phone: [employer] Work Phone: 04-08-2021 03:08-0400 Body temperature 99.19 [degF] Juan Richards MD Work Phone: [employer] Work Phone: 04-08-2021 03:08-0400 Body weight 49.44 kg Juan Richards MD Work Phone: [employer] Work Phone: 04-08-2021 03:08-0400 Diastolic blood pressure 72 mm[Hg] Juan Richards MD Work Phone: [employer] Work Phone: 04-08-2021 03:08-0400 Heart rate 111 /min Juan Richards MD Work Phone: [employer] Work Phone: 04-08-2021 03:08-0400 Respiratory rate 16 /min Juan Richards MD Work Phone: [employer] Work Phone: 04-08-2021 03:08-0400 SaO2% (BldA) [Mass fraction] 96 % Juan Richards MD Work Phone: [employer] Work Phone: 04-08-2021 03:08-0400 Systolic blood pressure 140 mm[Hg] Juan Richards MD Work Phone: [employer] Work Phone: 03-25-2021 18:36-0400 Body height 157.5 cm Martha Lara DO Work Phone: [facility] 03-25-2021 18:36-0400 Body mass index (BMI) [Ratio] 20.85 kg/m2 Martha Lara DO Work Phone: [facility] 03-25-2021 18:36-0400 Body temperature 99.81 [degF] Martha Lara DO Work Phone: [facility] 03-25-2021 18:36-0400 Body weight 51.71 kg Martha Lara DO Work Phone: [facility] 03-25-2021 18:36-0400 Diastolic blood pressure 66 mm[Hg] Martha Lara DO Work Phone: [facility] 03-25-2021 18:36-0400 Heart rate 65 /min Martha Lara DO Work Phone: [facility] 03-25-2021 18:36-0400 Respiratory rate 18 /min Martha Lara DO Work Phone: [facility] 03-25-2021 18:36-0400 SaO2% (BldA) [Mass fraction] 99 % Martha Lara DO Work Phone: [facility] 03-25-2021 18:36-0400 Systolic blood pressure 103 mm[Hg] Martha Lara DO Work Phone: [facility] 03-03-2021 08:12-0400 Body height 157.5 cm Radha Benavides APRN-RONN Work Phone: [employer] [facility] 03-03-2021 08:12-0400 Body mass index (BMI) [Ratio] 21.22 kg/m2 Radha Benavides APRN-RADIOLOGIST Work Phone: [employer] [facility] 03-03-2021 08:12-0400 Body temperature 98.6 [degF] Radha Benavides APRN-RADIOLOGIST Work Phone: [employer] [facility] 03-03-2021 08:12-0400 Body weight 52.62 kg Radha Benavides APRN-RADIOLOGIST Work Phone: [employer] [facility] 03-03-2021 08:12-0400 Diastolic blood pressure 70 mm[Hg] Radha Benavides APRN-RADIOLOGIST Work Phone: [employer] [facility] 03-03-2021 08:12-0400 Heart rate 96 /min Radha Benavides APRN-RADIOLOGIST Work Phone: [employer] [facility] 03-03-2021 08:12-0400 SaO2% (BldA) [Mass fraction] 100 % Radha Benavides APRN-RADIOLOGIST Work Phone: [employer] [facility] 03-03-2021 08:12-0400 Systolic blood pressure 116 mm[Hg] Radha Benavides ASSISTANT TECHNICIAN-RADIOLOGIST Work Phone: [employer] [facility] 02-26-2021 09:18-0400 Body height 157.5 cm Radha Benavides APRN-RADIOLOGIST Work Phone: [employer] [facility] 02-26-2021 09:18-0400 Body mass index (BMI) [Ratio] 21.44 kg/m2 Radha Benavides APRN-RADIOLOGIST Work Phone: [employer] [facility] 02-26-2021 09:18-0400 Body temperature 99 [degF] Radha Loerassratna EUCEDAN-RADIOLOGIST Work Phone: [employer] [facility] 02-26-2021 09:18-0400 Body weight 53.16 kg Radha Loerassler ASSISTANT TECHNICIAN-RADIOLOGIST Work Phone: [employer] [facility] 02-26-2021 09:18-0400 Diastolic blood pressure 70 mm[Hg] Radha Benavides APRN-RADIOLOGIST Work Phone: [employer] [facility] 02-26-2021 09:18-0400 Heart rate 114 /min Radha Loerassratna EUCEDAN-RADIOLOGIST Work Phone: [employer] [facility] 02-26-2021 09:18-0400 SaO2% (BldA) [Mass fraction] 99 % Radha Loerassler ASSISTANT TECHNICIAN-RADIOLOGIST Work Phone: [employer] [facility] 02-26-2021 09:18-0400 Systolic blood pressure 116 mm[Hg] Radha Benavides APRN-RADIOLOGIST Work Phone: [employer] [facility] 01-29-2021 09:11-0400 Body height 157.5 cm Radha Benavides APRN-RADIOLOGIST Work Phone: [employer] [facility] 01-29-2021 09:11-0400 Body mass index (BMI) [Ratio] 21.33 kg/m2 Radha Loerassler ASSISTANT TECHNICIAN-RADIOLOGIST Work Phone: [employer] [facility] 01-29-2021 09:11-0400 Body temperature 98.8 [degF] Radha Loeracuca EUCEDAN-RADIOLOGIST Work Phone: [facility] 01-29-2021 09:11-0400 Body weight 52.89 kg Radha Loerassler ASSISTANT TECHNICIAN-RADIOLOGIST Work Phone: [facility] 01-29-2021 09:11-0400 Diastolic blood pressure 68 mm[Hg] Radha Loerassler ASSISTANT TECHNICIAN-RADIOLOGIST Work Phone: [facility] 01-29-2021 09:11-0400 Heart rate 77 /min Radha Benavides ASSISTANT TECHNICIAN-RADIOLOGIST Work Phone: [facility] 01-29-2021 09:11-0400 SaO2% (BldA) [Mass fraction] 96 % Radha Loerassler ASSISTANT TECHNICIAN-RADIOLOGIST Work Phone: [employer] [facility] 01-29-2021 09:11-0400 Systolic blood pressure 114 mm[Hg] Radha Loerassler ASSISTANT TECHNICIAN-RADIOLOGIST Work Phone: [facility] 01-01-2021 09:09-0400 Body height 157.5 cm Radha Loerassler ASSISTANT TECHNICIAN-RADIOLOGIST Work Phone: [facility] 01-01-2021 09:09-0400 Body mass index (BMI) [Ratio] 21.98 kg/m2 Radha Loerassler ASSISTANT TECHNICIAN-RADIOLOGIST Work Phone: [employer] [facility] 01-01-2021 09:09-0400 Body temperature 97.7 [degF] Radha Benavides APRN-RADIOLOGIST Work Phone: [facility] 01-01-2021 09:09-0400 Body weight 54.52 kg Radha Benavides ASSISTANT TECHNICIAN-RADIOLOGIST Work Phone: [facility] 01-01-2021 09:09-0400 Diastolic blood pressure 70 mm[Hg] Radha Benavides ASSISTANT TECHNICIAN-RADIOLOGIST Work Phone: [employer] [facility] 01-01-2021 09:09-0400 Heart rate 81 /min Radha Loerassler ASSISTANT TECHNICIAN-RADIOLOGIST Work Phone: [employer] [facility] 01-01-2021 09:09-0400 SaO2% (BldA) [Mass fraction] 100 % Radha Loerassler ASSISTANT TECHNICIAN-RADIOLOGIST Work Phone: [employer] [facility] 01-01-2021 09:09-0400 Systolic blood pressure 104 mm[Hg] Radha Loerassler ASSISTANT TECHNICIAN-RADIOLOGIST Work Phone: [employer] [facility] 12-04-2020 11:36-0400 Body height 157.5 cm Radha Benavides ASSISTANT TECHNICIAN-RADIOLOGIST Work Phone: [facility] 12-04-2020 11:36-0400 Body mass index (BMI) [Ratio] 22.24 kg/m2 Radha Loerassler ASSISTANT TECHNICIAN-RADIOLOGIST Work Phone: [facility] [employer] [facility] 12-04-2020 11:36-0400 Body temperature 98.91 [degF] Radha Loerassler ASSISTANT TECHNICIAN-RADIOLOGIST Work Phone: [employer] [facility] 12-04-2020 11:36-0400 Body weight 55.16 kg Radha Kennedy EUCEDAN-RADIOLOGIST Work Phone: [employer] [facility] 12-04-2020 11:36-0400 Diastolic blood pressure 62 mm[Hg] Radha Loerassler ASSISTANT TECHNICIAN-RADIOLOGIST Work Phone: [employer] [facility] 12-04-2020 11:36-0400 Heart rate 109 /min Radha Loerassler ASSISTANT TECHNICIAN-RADIOLOGIST Work Phone: [employer] [facility] 12-04-2020 11:36-0400 SaO2% (BldA) [Mass fraction] 98 % Radha Loerassler ASSISTANT TECHNICIAN-RADIOLOGIST Work Phone: [employer] [facility] 12-04-2020 11:36-0400 Systolic blood pressure 102 mm[Hg] Radha Benavides ASSISTANT TECHNICIAN-RADIOLOGIST Work Phone: [facility] 11-20-2020 09:03-0400 Body height 157.5 cm Radha Loerassler ASSISTANT TECHNICIAN-RADIOLOGIST Work Phone: [facility] 11-20-2020 09:03-0400 Body mass index (BMI) [Ratio] 22.57 kg/m2 Radha Benavides ASSISTANT TECHNICIAN-RADIOLOGIST Work Phone: [facility] 11-20-2020 09:03-0400 Body temperature 97.9 [degF] Radha Benavides ASSISTANT TECHNICIAN-RADIOLOGIST Work Phone: [facility] 11-20-2020 09:03-0400 Body weight 55.97 kg Radha Benavides APRN-RADIOLOGIST Work Phone: [facility] 11-20-2020 09:03-0400 Diastolic blood pressure 62 mm[Hg] Radha Benavides ASSISTANT TECHNICIAN-RADIOLOGIST Work Phone: [facility] 11-20-2020 09:03-0400 Heart rate 80 /min Radha Benavides ASSISTANT TECHNICIAN-RADIOLOGIST Work Phone: [facility] 11-20-2020 09:03-0400 SaO2% (BldA) [Mass fraction] 97 % Radha Benavides ASSISTANT TECHNICIAN-RADIOLOGIST Work Phone: [facility] 11-20-2020 09:03-0400 Systolic blood pressure 102 mm[Hg] Radha Benavides APRN-RADIOLOGIST Work Phone: [facility] 11-06-2020 08:54-0400 Body height 157.5 cm Radha Benavides ASSISTANT TECHNICIAN-RADIOLOGIST Work Phone: [facility] 11-06-2020 08:54-0400 Body mass index (BMI) [Ratio] 22.83 kg/m2 Radha Benavides ASSISTANT TECHNICIAN-RADIOLOGIST Work Phone: [facility] 11-06-2020 08:54-0400 Body temperature 98.1 [degF] Radha Benavides APRN-RADIOLOGIST Work Phone: [facility] 11-06-2020 08:54-0400 Body weight 56.61 kg Radha Benavides APRN-RADIOLOGIST Work Phone: [facility] 11-06-2020 08:54-0400 Diastolic blood pressure 62 mm[Hg] Radha Benavides APRN-RADIOLOGIST Work Phone: [facility] 11-06-2020 08:54-0400 Heart rate 82 /min Radha Benavides APRN-RADIOLOGIST Work Phone: [facility] 11-06-2020 08:54-0400 SaO2% (BldA) [Mass fraction] 99 % Radha Benavides APRN-RADIOLOGIST Work Phone: [facility] 11-06-2020 08:54-0400 Systolic blood pressure 102 mm[Hg] Radha Benavides APRN-RADIOLOGIST Work Phone: [facility] 10-23-2020 11:32-0400 Body temperature [facility] Comment on above: temperature is 90, collection was not wi tnessed 10-23-2020 11:20-0400 BMI (Body Mass Index) 23.23 kg/m2 [facility] 10-23-2020 11:20-0400 Body Temperature 98.6 [degF] [facility] 10-23-2020 11:20-0400 Body weight 57.61 kg [facility] 10-23-2020 11:20-0400 BP Diastolic 68 mm[Hg] [facility] 10-23-2020 11:20-0400 BP Systolic 116 mm[Hg] [facility] 10-23-2020 11:20-0400 Height 157.5 cm [facility] 10-23-2020 11:20-0400 Pulse (Heart Rate) 85 /min [facility] 10-23-2020 11:20-0400 Pulse Oximetry 97 % [facility] 10-09-2020 15:06-0400 Body temperature [facility] Comment on above: temperature is 92, collection was not wi tnessed 10-09-2020 14:06-0400 BMI (Body Mass Index) 23.52 kg/m2 [facility] 10-09-2020 14:06-0400 Body Temperature 97.81 [degF] [facility] 10-09-2020 14:06-0400 Body weight 58.33 kg [facility] 10-09-2020 14:06-0400 BP Diastolic 62 mm[Hg] [facility] 10-09-2020 14:06-0400 BP Systolic 102 mm[Hg] [facility] 10-09-2020 14:06-0400 Height 157.5 cm [facility] 10-09-2020 14:06-0400 Pulse (Heart Rate) 87 /min [facility] 10-09-2020 14:06-0400 Pulse Oximetry 97 % [facility] 10-02-2020 11:05-0400 BMI (Body Mass Index) 23.92 kg/m2 [facility] 10-02-2020 11:05-0400 Body Temperature 97.5 [degF] [facility] 10-02-2020 11:05-0400 Body weight 59.33 kg [facility] 10-02-2020 11:05-0400 BP Diastolic 68 mm[Hg] [facility] 10-02-2020 11:05-0400 BP Systolic 106 mm[Hg] [facility] 10-02-2020 11:05-0400 Height 157.5 cm [facility] 10-02-2020 11:05-0400 Pulse (Heart Rate) 75 /min [facility] 10-02-2020 11:05-0400 Pulse Oximetry 98 % [facility] 09-25-2020 10:32-0500 BMI (Body Mass Index) 23.96 kg/m2 [facility] 09-25-2020 10:32-0500 Body Temperature 98.2 [degF] [facility] 09-25-2020 10:32-0500 Body weight 59.42 kg [facility] 09-25-2020 10:32-0500 BP Diastolic 70 mm[Hg] [facility] 09-25-2020 10:32-0500 BP Systolic 116 mm[Hg] [facility] 09-25-2020 10:32-0500 Height 157.5 cm [facility] 09-25-2020 10:32-0500 Pulse (Heart Rate) 76 /min [facility] 09-25-2020 10:32-0500 Pulse Oximetry 98 % [facility] 09-25-2020 10:32-0500 Respiratory Rate 16 /min [facility] 01-22-2020 13:50-0400 BMI (Body Mass Index) 21.58 kg/m2 [facility] [place] 01-22-2020 13:50-0400 Body Temperature 98.1 [degF] [facility] [place] 01-22-2020 13:50-0400 Body weight 53.52 kg [facility] 01-22-2020 13:50-0400 BP Diastolic 72 mm[Hg] [facility] 01-22-2020 13:50-0400 BP Systolic 128 mm[Hg] [facility] [place] 01-22-2020 13:50-0400 Height 157.5 cm [facility] 01-22-2020 13:50-0400 Pulse (Heart Rate) 100 /min [facility] [place] 01-22-2020 13:50-0400 Pulse Oximetry 94 % [facility] 01-22-2020 13:50-0400 Respiratory Rate 18 /min [facility] 11-16-2019 09:01-0400 BMI (Body Mass Index) 22.13 kg/m2 [facility] 11-16-2019 09:01-0400 Body Temperature 99.39 [degF] [facility] [place] 11-16-2019 09:01-0400 [facility] [place] 11-16-2019 09:01-0400 BP Diastolic 57 mm[Hg] [facility] 11-16-2019 09:01-0400 BP Systolic 106 mm[Hg] [place] Timmy [facility] 11-16-2019 09:01-0400 Height 157.5 cm [facility] 11-16-2019 09:01-0400 Pulse (Heart Rate) 107 /min [facility], [place] 11-16-2019 09:01-0400 Pulse Oximetry 97 % [place] Timmy [facility] 11-16-2019 09:01-0400 Respiratory Rate 15 /min [place] [facility] 08-24-2019 01:39-0500 BMI (Body Mass Index) 24.33 kg/m2 [employer] Work Phone: 08-24-2019 01:39-0500 Body Temperature 98.4 [degF] [employer] Work Phone: 08-24-2019 01:39-0500 Body weight 60.33 kg [employer] Work Phone: 08-24-2019 01:39-0500 BP Diastolic 83 mm[Hg] [employer] Work Phone: 08-24-2019 01:39-0500 BP Systolic 137 mm[Hg] [employer] Work Phone: 08-24-2019 01:39-0500 Height 157.5 cm [employer] Work Phone: 08-24-2019 01:39-0500 Pulse (Heart Rate) 97 /min [employer] Work Phone: 08-24-2019 01:39-0500 Pulse Oximetry 99 % [employer] Work Phone: 08-24-2019 01:39-0500 Respiratory Rate 18 /min [employer] Work Phone: 05-18-2019 22:03-0400 BP Diastolic 68 mm[Hg] [facility] [place] 05-18-2019 22:03-0400 BP Systolic 126 mm[Hg] [facility] [place] 05-18-2019 22:03-0400 Pulse (Heart Rate) 78 /min [employer] [facility], [place] 05-18-2019 22:03-0400 Pulse Oximetry 100 % [facility] [place] 05-18-2019 22:03-0400 Respiratory Rate 16 /min [facility] [place] 05-18-2019 20:38-0400 Body Temperature 98.6 [degF] [facility] [place] Encounters Encounter Date Encounter Type Care Provider Facility Start: 12-27-2023 ambulatory Vaibhav GONSALVES [facility] Start: 11-29-2023 ambulatory RADHA Mio [facility] Start: 11-29-2023 End: 11-29-2023 Clinical Support Encounter Virginia Cox DO Work Phone: [facility] Comment on above: Opioid dependence in remission (Primary Dx) Start: 11-14-2023 ambulatory SELF SELF [facility] Start: 11-11-2023 ambulatory SELF SELF [facility] Start: 11-01-2023 ambulatory Vaibhav GONSALVES [facility] Start: 11-01-2023 End: 11-01-2023 Clinical Support Encounter Virginia Cox DO Work Phone: [facility] Comment on above: Opioid dependence in remission (Primary Dx) Start: 10-28-2023 ambulatory P. MAJOR [facility] Start: 10-25-2023 [facility]: 10-24-2023 ambulatory Virginia GONSALVES [facility] Start: 10-14-2023 ambulatory [facility] Start: 09-26-2023 [facility] Start: 09-26-2023 End: 09-26-2023 Clinical Support Encounter Virginia Cox Work Phone: [facility] Comment on above: Opioid dependence in remission (Primary Dx) Start: 09-16-2023 ambulatory MAJOR [facility] Start: 08-20-2022 End: 08-21-2022 ambulatory WYATT [facility] Start: 08-20-2022 End: 08-20-2022 Subsequent hospital visit by physician Janet Ricci APRN - RADIOLOGIST Work Phone: [facility] Start: 05-11-2022 ambulatory [facility] Start: 05-11-2022 End: 05-11-2022 Office outpatient visit 15 minutes Radha Benavides ASSISTANT TECHNICIAN-RADIOLOGIST Work Phone: [facility] Comment on above: Opioid dependence in remission (Primary Dx); Encounter for long-term opiate analgesic use Start: 04-08-2022 ambulatory [facility] Start: 03-11-2022 ambulatory [facility] Start: 03-11-2022 End: 03-11-2022 Office outpatient visit 15 minutes Radha Benavides ASSISTANT TECHNICIAN-RADIOLOGIST Work Phone: [facility] Comment on above: Opioid dependence in remission (Primary Dx); Encounter for long-term opiate analgesic use Start: 02-08-2022 ambulatory [facility] Start: 02-08-2022 End: 02-08-2022 Office outpatient visit 15 minutes Radha Benavides ASSISTANT TECHNICIAN-RADIOLOGIST Work Phone: [facility] Comment on above: Opioid dependence in remission (Primary Dx); Encounter for long-term opiate analgesic use Start: 01-06-2022 ambulatory [facility] Start: 01-06-2022 End: 01-06-2022 Office outpatient visit 15 minutes Radha Benavides ASSISTANT TECHNICIAN-RADIOLOGIST Work Phone: [facility] Comment on above: Opioid dependence in remission (Primary Dx); Encounter for long-term opiate analgesic use Start: 12-08-2021 ambulatory SELF SELF [facility] Start: 12-08-2021 End: 12-08-2021 Office outpatient visit 15 minutes Radha Benavides ASSISTANT TECHNICIAN-RADIOLOGIST Work Phone: [facility] Comment on above: Opioid dependence in remission (Primary Dx); Encounter for long-term opiate analgesic use Start: 11-10-2021 [facility] Start: 11-10-2021 End: 11-10-2021 Office outpatient visit 15 minutes Radha Benavides ASSISTANT TECHNICIAN-RADIOLOGIST Work Phone: [facility] Comment on above: Opioid dependence in remission (Primary Dx); Encounter for long-term opiate analgesic use; () Start: 10-26-2021 End: 10-29-2021 Evaluation and management of inpatient [facility] Start: 10-15-2021 End: 10-16-2021 [facility] Start: 10-15-2021 End: 10-15-2021 Subsequent hospital visit by physician Karlee Hassan APRN - CNJorden Work Phone: [facility] Labor [facility] Delivery Start: 10-13-2021 [facility] Start: 10-05-2021 End: 10-06-2021 ambulatory [facility] Start: 10-05-2021 End: 10-05-2021 Subsequent hospital visit by physician Karlee Hasasn APRN - CNJorden Work Phone: [facility] Comment on above: 36 weeks gestation o f Start: 09-16-2021 End: 09-16-2021 Subsequent hospital visit by physician Tyrese Diabetes Education Work Phone: [facility] Di[facility] Education Start: 09-14-2021 [facility] Start: 09-14-2021 End: 09-14-2021 Office outpatient visit 15 minutes Radha Benavides ASSISTANT TECHNICIAN-RADIOLOGIST Work Phone: [facility] Comment on above: Opioid dependence in remission (Primary Dx); Encounter for long-term opiate analgesic use; , unspecified gestational age; Anxiety Start: 09-10-2021 End: 09-11-2021 [facility] Start: 08-25-2021 End: 08-26-2021 [facility] Start: 08-17-2021 [facility] Start: 07-21-2021 End: 07-22-2021 [facility] Start: 07-17-2021 End: 07-18-2021 [facility] Start: 07-17-2021 Emergency department patient visit [facility] Start: 07-14-2021 [facility] Start: 06-16-2021 End: 06-17-2021 [facility] Start: 06-16-2021 [facility] Start: 06-16-2021 End: 06-16-2021 Office outpatient visit 15 minutes Radha Benavides ASSISTANT TECHNICIAN-RADIOLOGIST Work Phone: [facility] Comment on above: Opioid dependence in remission (Primary Dx); Encounter for long-term opiate analgesic use; , unspecified gestational age; Anxiety; Bipolar 1 disorder Start: 06-12-2021 End: 06-12-2021 [facility] Start: 06-12-2021 End: 06-12-2021 Emergency department patient visit Juan Richards MD Work Phone: [facility] Comment on above: Viral URI (Primary D x); Otalgia, unspecified laterality Start: 05-24-2021 End: 05-24-2021 Emergency department patient visit SARAH JUSTICE [facility] Start: 05-24-2021 End: 05-24-2021 Emergency department patient visit Sarah Justice MD Work Phone: [facility] Comment on above: Rectal bleeding (Ana harriett Dx) Start: 05-19-2021 ambulatory RADHA Mio [facility] Start: 04-14-2021 End: 04-15-2021 ambulatory AVERY Galvan [facility] Start: 04-14-2021 End: 04-14-2021 Subsequent hospital visit by physician Janet Ricci APRN [employer] Work Phone: [facility] Comment on above: with 11 co mpleted weeks gestation Start: 04-08-2021 End: 04-08-2021 Emergency department patient visit JUAN RICHARDS [facility] Start: 04-08-2021 End: 04-08-2021 Emergency department patient visit Juan Richards MD Work Phone: [facility] ED Comment on above: Abdominal pain durin g in first trimester (Primary Dx); Urinary tract infection without hematuria, site unspecified Start: 03-25-2021 End: 03-25-2021 ambulatory MARIANNE TUCKER [facility] Start: 03-25-2021 End: 03-25-2021 Office outpatient new 45 minutes Martha Lara DO Work Phone: [facility] [place] Comment on above: Acute nasopharyngiti s (Primary Dx); Exposure to SARS-associated coronavirus; [employer] Start: 03-10-2021 End: 03-11-2021 ambulatory KARLEE E CATRACHO [facility] Start: 03-10-2021 End: 03-10-2021 Subsequent hospital visit by physician Janet Ricci APRN - RADIOLOGIST Work Phone: [facility] Comment on above: Amenorrhea; Positive urine test; Encounter for supervision of normal first in first trimester Start: 03-03-2021 End: 03-03-2021 Office outpatient visit 15 minutes Radha Benavides ASSISTANT TECHNICIAN-[employer] Work Phone: [facility] Comment on above: Positive t est (Primary Dx); Opioid dependence in remission; Encounter for long-term opiate analgesic use Start: 02-26-2021 End: 02-26-2021 Office outpatient visit 15 minutes Radha Lieberman Benavides ASSISTANT TECHNICIAN-[place] Work Phone: [facility] Comment on above: Opioid dependence in remission (Primary Dx); Encounter for long-term opiate analgesic use; Anxiety Start: 01-29-2021 End: 01-29-2021 Office outpatient visit 25 minutes Radha Lieberman Benavides ASSISTANT TECHNICIAN-[place] Work Phone: [facility] Comment on above: Opioid dependence in remission (Primary Dx); Encounter for long-term opiate analgesic use; Bipolar 1 disorder; Anxiety; Seborrheic dermatitis of scalp; Dysuria; Sensation of pressure in bladder area; Acute cystitis with hematuria Start: 01-01-2021 End: 01-01-2021 Office outpatient visit 15 minutes Radha Benavides ASSISTANT TECHNICIAN-RADIOLOGIST Work Phone: [facility] Comment on above: Opioid dependence in remission (Primary Dx); Encounter for long-term opiate analgesic use; Anxiety Start: 12-04-2020 End: 12-04-2020 Office outpatient visit 25 minutes Radha Lieberman Benavides ASSISTANT TECHNICIAN-RADIOLOGIST Work Phone: [facility] Comment on above: Opioid dependence in remission (Primary Dx); Encounter for long-term opiate analgesic use; Anxiety; Exposure to STD Start: 11-20-2020 End: 11-20-2020 Office outpatient visit 15 minutes Radha Lieberman Benavides ASSISTANT TECHNICIAN-[place] Work Phone: [facility] Comment on above: Opioid dependence in remission (Primary Dx); Encounter for long-term opiate analgesic use; Anxiety Start: 11-06-2020 End: 11-06-2020 Office outpatient visit 15 minutes Radha Lieberman Benavides ASSISTANT TECHNICIAN-[place] Work Phone: [facility] Comment on above: Opioid dependence in remission (Primary Dx); Encounter for long-term opiate analgesic use; Anxiety Start: 10-23-2020 End: 10-23-2020 Office outpatient visit 15 minutes Radha Benavides Work Phone: [facility] Comment on above: Opioid dependence in remission; Encounter for long-term opiate analgesic use Start: 10-09-2020 End: 10-09-2020 Office outpatient visit 25 minutes Radha Benavides Work Phone: [facility] Comment on above: Opioid dependence in remission (Primary Dx); Encounter for long-term opiate analgesic use; Vitamin D deficiency Start: 10-02-2020 End: 10-02-2020 Office outpatient visit 25 minutes Radha Benavides Work Phone: [facility] Comment on above: Opioid dependence in remission (Primary Dx); Encounter for long-term opiate analgesic use; Fatigue, unspecified type; Hair loss Start: 09-25-2020 End: 09-25-2020 Office outpatient new 45 minutes Radha Benavides Work Phone: [facility] Comment on above: Encounter for medica l examination to establish care (Primary Dx); Opioid dependence in remission; Encounter for long-term opiate analgesic use; Seborrheic dermatitis of scalp Start: 01-22-2020 End: 01-22-2020 Emergency department patient visit Karlo Warner Work Phone: [facility] Comment on above: Acute bronchitis, un specified organism (Primary Dx); Encounter for medication refill; Nonintractable headache, unspecified chronicity pattern, unspecified headache type Start: 12-18-2019 End: 12-18-2019 Subsequent hospital visit by physician Janet [facility] Start: 12-14-2019 End: 12-14-2019 Subsequent hospital visit by physician Janet [facility] Start: 11-16-2019 End: 11-16-2019 Emergency department patient visit Karlo Warner Work Phone: [facility] Comment on above: Chlamydia infection (Primary Dx); Pelvic pain Start: 11-10-2019 End: 11-10-2019 Subsequent hospital visit by physician Janet [facility] Start: 11-08-2019 End: 11-08-2019 Subsequent hospital visit by physician Janet Ricci [facility] Start: 08-24-2019 End: 08-24-2019 Emergency department patient visit Juan Richards Work Phone: [facility] Comment on above: Dysuria (Primary Dx) ; Yeast vaginitis Start: 05-29-2019 End: 05-29-2019 Subsequent hospital visit by physician Janet Ricci [facility] Comment on above: Screening for STD (s exually transmitted disease); Screening for cervical cancer Start: 05-18-2019 End: 05-18-2019 Emergency department patient visit Andrew Marley Work Phone: [facility] ED Comment on above: Concussion without l oss of consciousness, initial encounter (Primary Dx) Start: 10-17-2018 End: 10-17-2018 Patient encounter procedure Harshal Car Facility:[facility] Start: 08-07-2018 End: 08-08-2018 Patient encounter procedure JANET RICCI Facility: Procedures Date Procedure Procedure Detail Performing Clinician Start: 11-29-2023 Albumin serum plasma/whole blood Virginia Cox DO Work Phone: Start: 08-20-2022 Smr prim src wet mount nfct agt Wyatt Dsouza ASSISTANT TECHNICIAN - RADIOLOGIST Work Phone: Start: 05-11-2022 Drug test prsmv read direct optical obs pr date Radha Benavides ASSISTANT TECHNICIAN-RADIOLOGIST Work Phone: Start: 03-11-2022 Drug test prsmv read direct optical obs pr date Radha Benavides ASSISTANT TECHNICIAN-RADIOLOGIST Work Phone: Start: 02-08-2022 Drug test prsmv read direct optical obs pr date Radha Benavides ASSISTANT TECHNICIAN-RADIOLOGIST Work Phone: Start: 01-06-2022 Drug test prsmv read direct optical obs pr date Radha Benavides ASSISTANT TECHNICIAN-RADIOLOGIST Work Phone: Start: 12-08-2021 Drug test prsmv read direct optical obs pr date Radha Benavides ASSISTANT TECHNICIAN-RADIOLOGIST Work Phone: Start: 11-10-2021 Drug test prsmv read direct optical obs pr date Radha Benavides ASSISTANT TECHNICIAN-RADIOLOGIST Work Phone: Start: 10-15-2021 Urinalysis microscopic only Karlee Burden ool ASSISTANT TECHNICIAN - CN Work Phone: Start: 10-15-2021 Urnls dip stick/tablet rgnt auto w/o microscopy Karlee Pérez Pool ASSISTANT TECHNICIAN - CN Work Phone: Start: 09-14-2021 Drug test prsmv read direct optical obs pr date Radha Gaffneyler ASSISTANT TECHNICIAN-[facility] Work Phone: Start: 06-16-2021 Drug test prsmv read direct optical obs pr date Radha Benavides ASSISTANT TECHNICIAN-[facility] Work Phone: Start: 05-24-2021 Antibody screen Sarah [...] Phone: Start: 03-10-2021 Antibody screen Janet Ricci ASSISTANT TECHNICIAN - RADIOLOGIST Work Phone: Start: 03-10-2021 Drug screen, qualitate/multi Karlee Hassan ASSISTANT TECHNICIAN - [facility] Work Phone: Start: 03-10-2021 Antibody hiv-1&hiv-2 single result Karlee Hassan ASSISTANT TECHNICIAN - [facility] Work Phone: Start: 03-03-2021 Drug test prsmv read direct optical obs pr date Radha Lieberman Kennedy ASSISTANT TECHNICIAN-[facility] Work Phone: Start: 03-03-2021 Urine test visual color cmprsn meths Radha Lieberman Kennedy ASSISTANT TECHNICIAN-[facility] Work Phone: Start: 02-26-2021 Drug test prsmv read direct optical obs pr date Radha Mio Kennedy [facility] Work Phone: Start: 01-29-2021 Urnls dip stick/tablet rgnt auto w/o microscopy Radha Benavides [facility] Work Phone: Start: 01-29-2021 Drug test prsmv read direct optical obs pr date Radha Gaffneyler [facility] Work Phone: Start: 01-29-2021 Culture bacterial quanttative colony count urine Radha Gaffneyler [facility] Work Phone: Start: 01-01-2021 Drug test prsmv read direct optical obs pr date Radha Mio Kennedy [facility] Work Phone: Start: 12-04-2020 Drug test prsmv read direct optical obs pr date Radha Mio Kennedy [facility] Work Phone: Start: 12-04-2020 Iadna chlamydia trachomatis amplified probe tq Rahda Benavides ASSISTANT TECHNICIAN-[facility] Work Phone: Start: 11-20-2020 Drug test prsmv read direct optical obs pr date Radha Mio Kennedy ASSISTANT TECHNICIAN-[facility] Work Phone: Start: 11-06-2020 Drug test prsmv read direct optical obs pr date Radha Benavides [facility] Work Phone: Start: 10-23-2020 Drug test prsmv read direct optical obs pr date Radha Benavides Work Phone: Start: 10-09-2020 Drug test prsmv read direct optical obs pr date Radha Mio GaffneyBenavides Work Phone: Start: 10-02-2020 25 hydroxy includes [...] read direct optical obs pr date Radha Mio Benavides Work Phone: Start: 09-25-2020 Antibody hiv-1 [...] Phone: Start: 01-22-2020 Gonadotropin chorionic qualitative Karlo Leonardo Timmy Work Phone: Start: 12-18-2019 Smr prim src wet mount nfct agt Wyatt Dsouza Work Phone: Start: 12-14-2019 Hepatic function panel Wyatt Dsouza Work Phone: Start: 11-16-2019 Us transvaginal Karlo Leonardo Timmy Work Phone: Start: 11-16-2019 Assay of lipase Rickyjessicaanastasiia Warnre Work Phone: Start: 11-16-2019 Blood count complete auto&auto difrntl wbc Karlo Warner Work Phone: Start: 11-16-2019 Gonadotropin chorionic qualitative Karlo Leonardo Timmy Work Phone: Start: 11-16-2019 Lactate [Moles/Vol] Karlo Warner Work Phone: Start: 11-08-2019 Acute hepatitis panel Wyatt Dsouza Work Phone: Start: 11-08-2019 Antibody hiv-1&hiv-2 single result Wyatt Dsouza Work Phone: Start: 11-08-2019 Basic metabolic panel calcium total Wyatt Dsouza Work Phone: Start: 11-08-2019 Blood count complete automated Wyatt Moreno morgananastasiia Work Phone: Start: 11-08-2019 Gonadotropin chorionic qualitative Wyatt Dsouza Work Phone: Start: 08-24-2019 Urinalysis microscopic only [...] of 2) Shingles Vaccine (1 of 2) [employer] Work Phone: Start: 03-18-2024 Influenza vaccination INFLUENZ A VACCINE (Season Ended) [facility] Start: 12-27-2023 End: 12-27-2023 Clinical Support Encounter 12/27/2023 1:30 PM EDT Clinical Support Encounter [facility] [address] [place] [address], [place] [address] [facility] Start: 11-29-2023 End: 11-29-2023 Clinical Support Encounter 11/29/2023 1:30 PM EDT Clinical Support Encounter [facility] [address] [place] [address], [place] [address] [facility] Start: 11-11-2023 End: 11-11-2023 Telemedicine consultation with patient 11/11/2023 11:30 AM EDT Telemedicine [facility] [address] [place] [address] Virginia Cox, DO [address] [place] [address] [facility] Start: 11-01-2023 End: 10-31-2024 Hepatic function 2000 panel - Serum or Plasma HEPATIC FUNCTION PANEL Lab Routine Opioid dependence in remission Expected: 11/01/2023, Expires: 10/31/2024 [facility] Comment on above: Expected: 11/01/2023 , Expires: 10/31/2024 Start: 10-24-2023 End: 10-24-2023 Clinical Support Encounter 10/24/2023 2:00 PM EDT Clinical Support Encounter [facility] [address] [place] [address] [facility] Start: 10-14-2023 End: 10-14-2023 Telemedicine consultation with patient 10/14/2023 11:45 AM EDT Telemedicine [facility] [address] [place] [address] Virginia Cox, DO [address] [place] [address] [facility] Start: 03-18-2023 COVID-19 VACCINE ( season) COVID-19 VACCINE ( season) [facility] Start: 03-18-2023 Influenza vaccination INFLUENZA VACC INE (#1) [facility] Start: 09-14-2022 Depression Monitoring Depression [place] Start: 09-14-2022 DTaP/Tdap/Td vaccine (6 - Td or Tdap) DTaP/Tdap/Td vaccine (6 - Td or Tdap) [facility] Comment on above: Postponed from 01/26 (Patient Refused) Start: 09-14-2022 Influenza vaccination [facility] Comment on above: Postponed from 03/18 (Patient Refused) Postponed from 03/18 (Patient Refused) Start: 06-08-2022 End: 06-08-2022 Patient encounter procedure 06/08/2022 Office Visit Family Medicine Radha Benavides, ASSISTANT TECHNICIAN-RADIOLOGIST [address] [place] [address] [facility] Start: 05-29-2022 Cervical cancer screen Cervical canc er screen [facility] Work Phone: Start: 05-29-2022 Screening for malign ant neoplasm of cervix [facility] Start: 04-08-2022 End: 04-08-2022 Patient encounter procedure 04/08/2022 Office Visit Family Medicine Radha Benavides, ASSISTANT TECHNICIAN-RADIOLOGIST [address] [place] [address] [facility] Start: 03-18-2022 Influenza vaccination [facility] Start: 03-10-2022 Screening for Chlamy mariela trachomatis [facility] Start: 03-09-2022 End: 03-09-2022 Patient encounter procedure 03/09/2022 Office Visit Family Medicine Radha Benavides, ASSISTANT TECHNICIAN-RADIOLOGIST [address] [place] [address] [facility] Start: 02-15-2022 Influenza vaccination Flu vaccine (# 1) [facility] Start: 02-03-2022 End: 02-03-2022 Patient encounter procedure 02/03/2022 Office Visit Family Medicine Radha Benavides, ASSISTANT TECHNICIAN-RADIOLOGIST [address] [place] [address] [facility] Start: 01-05-2022 End: 01-05-2022 Patient encounter procedure 01/05/2022 Office Visit Family Medicine Radha Benavides, ASSISTANT TECHNICIAN-RADIOLOGIST [address] [place] [address] [facility] Start: 12-08-2021 End: 12-08-2021 Patient encounter procedure 12/08/2021 Office Visit Family Medicine Radha Benavides, ASSISTANT TECHNICIAN-RADIOLOGIST [address] [place] [address] [facility] Start: 12-04-2021 GONORRHEA SCREEN GONORRHEA SCREEN [facility] Start: 12-04-2021 Screening for Chlamy mariela trachomatis [facility] Start: 11-02-2021 End: 11-02-2021 Professional / ancillary services management 11/02/2021 Ancillary Procedure Obstetrics and Gynecology [facility] Start: 11-02-2021 End: 11-02-2021 Patient encounter procedure [facility] Start: 11-02-2021 End: 11-02-2021 Professional / ancillary services management 11/02/2021 Ancillary Procedure Obstetrics and Gynecology [facility] Start: 10-29-2021 End: 10-29-2021 Patient encounter procedure [facility] Start: 10-26-2021 End: 10-26-2021 Professional / ancillary services management 10/26/2021 Ancillary Procedure Obstetrics and Gynecology [facility] Start: 10-26-2021 End: 10-26-2021 Patient encounter procedure [facility] Start: 10-26-2021 End: 10-26-2021 Professional / ancillary services management 10/26/2021 Ancillary Procedure Obstetrics and Gynecology [facility] Start: 10-22-2021 End: 10-22-2021 Patient encounter procedure [facility] Start: 10-19-2021 End: 10-19-2021 Patient encounter procedure 10/19/2021 Routine Obstetrics and Gynecology Karlee Hassan APRN - CNM [address] [facility] [address] [address] [facility] Start: 10-19-2021 End: 10-19-2021 Patient encounter procedure [facility] Start: 10-19-2021 End: 10-19-2021 Professional / ancillary services management 10/19/2021 Ancillary Procedure Obstetrics and Gynecology [facility] Start: 10-15-2021 End: 10-15-2021 Patient encounter procedure [facility] Start: 10-13-2021 End: 10-13-2021 Patient encounter procedure 10/13/2021 Office Visit Family Medicine Radha Benavides APRN-RADIOLOGIST [address] [place] [address] [facility] Start: 10-12-2021 End: 10-12-2021 Professional / ancillary services management 10/12/2021 Ancillary Procedure Obstetrics and Gynecology [facility] Start: 10-12-2021 End: 10-12-2021 Patient encounter procedure [facility] Start: 10-12-2021 End: 10-12-2021 Professional / ancillary services management 10/12/2021 Ancillary Procedure Obstetrics and Gynecology [facility] Start: 10-08-2021 End: 10-08-2021 Patient encounter procedure [facility] Start: 10-05-2021 End: 10-05-2021 Patient encounter procedure 10/05/2021 Routine Obstetrics and Gynecology Karlee Hassan APRN - JUNAID [address] [facility], [place] [id number] [facility] Start: 10-05-2021 End: 10-05-2021 Patient encounter procedure [facility] Start: 10-05-2021 End: 10-05-2021 Professional / ancillary services management 10/05/2021 Ancillary Procedure Obstetrics and Gynecology [facility] Start: 10-02-2021 End: 10-02-2021 Patient encounter procedure 10/02/2021 Appointment IP Unit Fan Noel [address], LD [facility] Start: 10-01-2021 End: 10-01-2021 Patient encounter procedure [facility] Start: 09-28-2021 End: 09-28-2021 Professional / ancillary services management 09/28/2021 Ancillary Procedure Obstetrics and Gynecology [facility] Start: 09-28-2021 End: 09-28-2021 Patient encounter procedure [facility] Start: 09-28-2021 End: 09-28-2021 Professional / ancillary services management 09/28/2021 Ancillary Procedure Obstetrics and Gynecology [facility] Start: 09-24-2021 End: 09-24-2021 Patient encounter procedure 09/24/2021 Routine Obstetrics and Gynecology Avery Ovalle MD [address] [facility] [place] [address] [facility] Start: 09-21-2021 End: 09-21-2021 Patient encounter procedure [facility] Start: 09-21-2021 End: 09-21-2021 Professional / ancillary services management 09/21/2021 Ancillary Procedure Obstetrics and Gynecology [facility] Start: 09-17-2021 End: 09-17-2021 Patient encounter procedure [facility] Start: 09-14-2021 End: 09-14-2021 Patient encounter procedure [facility] Start: 09-14-2021 End: 09-14-2021 Professional / ancillary services management 09/14/2021 Ancillary Procedure Obstetrics and Gynecology [facility] Start: 09-10-2021 End: 09-10-2021 Patient encounter procedure [facility] Start: 09-07-2021 End: 09-07-2021 Patient encounter procedure [facility] Start: 09-07-2021 End: 09-07-2021 Professional / ancillary services management 09/07/2021 Ancillary Procedure Obstetrics and Gynecology [facility] Start: 08-27-2021 End: 08-27-2021 Patient encounter procedure [facility] Start: 08-25-2021 End: 08-25-2021 Patient encounter procedure [facility] Start: 08-25-2021 End: 08-25-2021 Professional / ancillary services management 08/25/2021 Ancillary Procedure Obstetrics and Gynecology [facility] Start: 07-14-2021 End: 07-14-2021 Patient encounter procedure 07/14/2021 Office Visit Family Medicine Radha Benavides, ASSISTANT TECHNICIAN-RADIOLOGIST [address] [place] [address] [facility] Start: 06-15-2021 End: 06-15-2021 Patient encounter procedure [facility] Start: 06-15-2021 End: 06-15-2021 Professional / ancillary services management 06/15/2021 Ancillary Procedure Obstetrics and Gynecology [facility] Start: 05-26-2021 End: 05-26-2021 Patient encounter procedure 05/26/2021 Routine Obstetrics and Gynecology Avery Ovalle MD [address] [facility] [address] [facility] [place] [address] [facility] SENIOR ASIC ENGINEER Start: 04-14-2021 End: 04-14-2021 Patient encounter procedure 04/14/2021 Routine Obstetrics and Gynecology Avery Ovalle MD [address] [facility] [address] [place] [address] [phone] [facility] SENIOR ASIC ENGINEER Start: 03-26-2021 End: 03-26-2021 Patient encounter procedure 03/26/2021 Office Visit Family Radha Heller, ASSISTANT TECHNICIAN-RADIOLOGIST [address] [place] [address] [facility] Start: 03-18-2021 Influenza vaccination [facility] Start: 03-17-2021 End: 03-17-2021 Patient encounter procedure 03/17/2021 Routine Obstetrics and Gynecology Karlee Hassan APRN - JUNAID [address] [facility] [address] [place] [address] [phone] [facility] Start: 03-17-2021 End: 03-17-2021 Professional / ancillary services management 03/17/2021 Ancillary Procedure Obstetrics and Gynecology [facility] Start: 02-26-2021 End: 02-26-2021 Patient encounter procedure 02/26/2021 Office Visit Family Radha Heller, ASSISTANT TECHNICIAN-RADIOLOGIST [address] [place] [address] [phone] [facility] Start: 01-29-2021 End: 01-29-2021 Patient encounter procedure 01/29/2021 Office Visit Family Radha Heller, ASSISTANT TECHNICIAN-RADIOLOGIST [address] [place] [address] [phone] [facility] Start: 01-26-2021 DTaP/Tdap/Td vaccine (6 - Td or Tdap) DTaP/Tdap/Td vaccine (6 - Td or Tdap) [facility] Start: 01-26-2021 DTaP/Tdap/Td vaccine (6 - Td) DTaP/Tdap/Td vaccine (6 - Td) [place], [place] Start: 01-26-2021 Tetanus vaccination [facility] Start: 01-01-2021 End: 01-01-2021 Patient encounter procedure 01/01/2021 Office Visit Family Medicine Radha Benavides, ASSISTANT TECHNICIAN-RADIOLOGIST [address] [place] [address] [phone] [facility] Start: 12-17-2020 Screening for Chlamy mariela trachomatis Chlamydia screen [place], [place] Start: 12-04-2020 End: 12-04-2020 Patient encounter procedure 12/04/2020 Office Visit Family Medicine Radha Benavides, ASSISTANT TECHNICIAN-RADIOLOGIST [address] [place] [address] [phone] [facility] Start: 11-20-2020 End: 11-20-2020 Patient encounter procedure 11/20/2020 Office Visit Family Medicine Radha Benavides, ASSISTANT TECHNICIAN-RADIOLOGIST [address] [place] [address] [phone] [facility] Start: 11-09-2020 Screening for Chlamy mariela trachomatis Chlamydia screen [place], [place] Start: 11-06-2020 End: 11-06-2020 Office Visit 11/06/2020 Office Visit Family Medicine Radha Benavides, ASSISTANT TECHNICIAN-RADIOLOGIST [address] [place] [address] [phone] [facility] Start: 10-23-2020 End: 10-23-2020 Office Visit 10/23/2020 Office Visit Family Medicine Radha Benavides, ASSISTANT TECHNICIAN-RADIOLOGIST [address] [place] [address] [phone] [facility] Start: 10-09-2020 End: 10-09-2020 Office Visit 10/09/2020 Office Visit Family Medicine [place] Radha Lieberman, ASSISTANT TECHNICIAN-RADIOLOGIST [address] [place] [address] [phone] [facility] Start: 10-02-2020 End: 10-02-2020 Office Visit 10/02/2020 Office Visit Family Medicine BenavidesRadha segundo, ASSISTANT TECHNICIAN-RADIOLOGIST [address] [place] [address] [phone] [facility] Start: 08-24-2020 Screening for Chlamy mariela trachomatis Chlamydia screen [place], [place] Start: 06-19-2020 Influenza vaccination [facility] [employer] Phone: Comment on above: Postponed from 03/18 (Patient Refused) Postponed from 03/18 (Patient Refused) Start: 05-29-2020 Chlamydia screen Chlamydia screen [facility] [employer] Phone: Start: 03-18-2020 Influenza vaccination [place], [place] Start: 08-06-2019 Chlamydia screen Chlamydia screen [place], [place] Start: 06-12-2019 End: 06-12-2019 Procedure visit 06/12/2019 Procedure visit Obstetrics and Gynecology Avery Ovalle MD [facility] [place] [address] [facility] Gynecology Specialist Start: 2019 Cervical cancer screen Cervical canc er screen [place], [place] Start: 2019 Screening for malign ant neoplasm of cervix CERVICAL CANCER SCREENING DISCUSSION [facility] Start: 03-18-2019 Influenza vaccination Flu vaccine (# 1) [place] Start: 2017 DTaP/Tdap/Td vaccine (1 - Tdap) DTaP/Tdap/Td vaccine (1 - Tdap) [place] Start: 2017 Third diphtheria, tetanus and acellular pertussis (DTaP) vaccination TDAP (ADULT) [facility] Start: 2016 Hepatitis C screening Hepatitis C Sc reening [facility] Start: 2016 Tetanus vaccination TETANUS [facility] Start: 2014 COVID-19 VACCINE (1) COVID-19 VACCIN E (1) [facility] Start: 2014 Screening for Chlamy mariela trachomatis CHLAMYDIA SCREEN [facility] Start: 2013 HIV screening HIV Screening [facility] Start: 2013 HPV vaccine (1 - Fem jessica 3-dose series) HPV vaccine (1 - Female 3-dose series) [place], [place] Start: 2011 Varicella Vaccine (1 of 2 - 13+ 2-dose series) Varicella Vaccine (1 of 2 - 13+ 2-dose series) [place] Start: 2010 COVID-19 VACCINE (1) COVID-19 VACCIN E (1) [facility] Start: 2010 Depression screening using PHQ-9 (Patient Health Questionnaire 9) score Depression Screening (PHQ9) [facility] Start: 2009 Vaccination for virgilio n papillomavirus HPV VACCINE ADOL (1 - 2-dose series) [facility] Start: 2004 Pneumococcal 0-64 ye ars Vaccine (1 of 1 - PPSV23) Pneumococcal 0-64 years Vaccine (1 of 1 - PPSV23) [place] Start: 2004 Pneumococcal 0-64 ye ars Vaccine (1 of 2 - PPSV23) Pneumococcal 0-64 years Vaccine (1 of 2 - PPSV23) [facility] Start: 2004 PNEUMOCOCCAL VACCINE SERIES (1 of 2 - PPSV23) PNEUMOCOCCAL VACCINE SERIES (1 of 2 - PPSV23) [facility] Start: 2004 Pneumococcal Vaccine : Ped or At-Risk (1 of 2 - PPSV23) Pneumococcal Vaccine: Ped or At-Risk (1 of 2 - PPSV23) [facility] Start: 2003 COVID-19 VACCINE (#1) COVID-19 VACCI NE (#1) [facility] Start: 2003 COVID-19 Vaccine (1) COVID-19 Vaccin e (1) [employer] Start: 2001 History and physical examination, annual for health maintenance Wellness Visit [facility] Start: 1998 COVID-19 VACCINE (#1) COVID-19 VACCI NE (#1) [facility] Start: 1998 GONORRHEA SCREEN GONORRHEA SCREEN [facility] Start: 1998 Screening for Chlamy mariela trachomatis Chlamydia Screening [facility] Start: 1998 Screening for malign ant neoplasm of cervix Pap Smear [facility] End: 08-24-2019 Bacteria identified Cx Nom (U) Urine Culture Microbiology Routine Once for 1 Occurrences starting 08/24/2019 until 08/24/2019 [facility] Phone: Comment on above: Once for 1 Occurrenc es starting 08/24/2019 until 08/24/2019 Bacteria identified Cx Nom (U) [facility] Phone: End: 10-15-2021 Bacteria identified in Urine by Culture [facility] Phone: Comment on above: One Time for 1 Occur rences starting 10/15/2021 until 10/15/2021 End: 11-10-2019 C.trachomatis N.gonorrhoeae DNA C.trachomatis N.gonorrhoeae DNA Microbiology Routine Once for 1 Occurrences starting 11/10/2019 until 11/10/2019 [facility] [place] Comment on above: Once for 1 Occurrenc es starting 11/10/2019 until 11/10/2019 C.trachomatis N.gonorrhoeae DNA [facility] [place] End: 12-18-2019 C.trachomatis N.gonorrhoeae DNA C.trachomatis N.gonorrhoeae DNA Microbiology Routine Once for 1 Occurrences starting 12/18/2019 until 12/18/2019 [facility] Comment on above: Once for 1 Occurrenc es starting 12/18/2019 until 12/18/2019 End: 08-20-2022 C.trachomatis N.gonorrhoeae DNA [facility] [employer] Phone: Comment on above: Once for 1 Occurrenc es starting 08/20/2022 until 08/20/2022 End: 08-24-2019 C.trachomatis N.gonorrhoeae DNA, Urine C.trachomatis N.gonorrhoeae DNA, Urine Microbiology Routine One Time for 1 Occurrences starting 08/24/2019 until 08/24/2019 [facility] Phone: Comment on above: One Time for 1 Occur rences starting 08/24/2019 until 08/24/2019 C.trachomatis N.gonorrhoeae DNA, Urine [facility] Phone: End: 03-10-2021 C.trachomatis N.gonorrhoeae DNA, Urine C.trachomatis N.gonorrhoeae DNA, Urine Microbiology Routine Amenorrhea Positive urine test Encounter for supervision of normal first in first trimester 1 Occurrences starting 03/10/2021 until 03/10/2021 [facility] Phone: Comment on above: 1 Occurrences starti ng 03/10/2021 until 03/10/2021 End: 05-29-2019 Chlamydia/GC DNA, Thin Prep Chlamydia/GC DNA, Thin Prep Microbiology Routine Screening for STD (sexually transmitted disease) 1 Occurrences starting 05/29/2019 until 05/29/2019 [facility] Comment on above: 1 Occurrences starti ng 05/29/2019 until 05/29/2019 Chlamydia/GC DNA, Th in Prep Chlamydia/GC DNA, Thin Prep Microbiology Routine Screening for STD (sexually transmitted disease) 05/29/2019 12:22 PM EST [facility] [place] CHLAMYDIA/GONOCOCCUS , MARIA FERNANDA CHLAMYDIA/GONOCOCCUS, MARIA FERNANDA Microbiology Routine Exposure to STD 12/04/2020 11:40 AM [facility] End: 11-10-2019 Culture, Genital Culture, Genital Microbiology Routine Once for 1 Occurrences starting 11/10/2019 until 11/10/2019 [facility] [place] Comment on above: Once for 1 Occurrenc es starting 11/10/2019 until 11/10/2019 Culture, Genital Culture, Genita l Microbiology Routine 11/10/2019 2:00 PM [facility] [place] End: 10-05-2021 Culture, Strep B Screen, Vaginal/Rectal [facility] Phone: Comment on above: 1 Occurrences starti ng 10/05/2021 until 10/05/2021 End: 03-10-2021 Culture, Urine Culture, Urine Microbiology Routine Amenorrhea Positive urine test Encounter for supervision of normal first in first trimester 1 Occurrences starting 03/10/2021 until 03/10/2021 [facility] Phone: Comment on above: 1 Occurrences starti ng 03/10/2021 until 03/10/2021 End: 04-08-2021 Culture, Urine Culture, Urine Microbiology Routine Once for 1 Occurrences starting 04/08/2021 until 04/08/2021 [facility] Phone: Comment on above: Once for 1 Occurrenc es starting 04/08/2021 until 04/08/2021 End: 05-29-2019 Cytopathology procedure, preparation of smear, genital source PAP Smear Lab Routine Screening for cervical cancer 1 Occurrences starting 05/29/2019 until 05/29/2019 [facility] [place] Comment on above: 1 Occurrences starti ng 05/29/2019 until 05/29/2019 End: 10-05-2021 nonstress test nonstress test OB Routine One Time for 1 Occurrences starting 10/05/2021 until 10/05/2021 [facility] Phone: Comment on above: One Time for 1 Occur rences starting 10/05/2021 until 10/05/2021 End: 10-15-2021 nonstress test nonstress test OB Routine One Time for 1 Occurrences starting 10/15/2021 until 10/15/2021 [facility] Phone: Comment on above: One Time for 1 Occur rences starting 10/15/2021 until 10/15/2021 Nonrebreather mask oxygen Nonrebreather mask oxygen Respiratory Care Routine As directed - RT (PRN) until discontinued starting 10/15/2021 [facility] Phone: Comment on above: As directed - RT (WV N) until discontinued starting 10/15/2021 End: 10-15-2021 SVE SVE Point of Care Testing Routine One Time for 1 Occurrences starting 10/15/2021 until 10/15/2021 [facility] Phone: Comment on above: One Time for 1 Occur rences starting 10/15/2021 until 10/15/2021 End: 11-16-2019 Urinalysis, reflex to microscopic Urinalysis, reflex to microscopic Lab STAT One Time for 1 Occurrences starting 11/16/2019 until 11/16/2019 [facility], [place] Comment on above: One Time for 1 Occur rences starting 11/16/2019 until 11/16/2019 Immunizations Immunization Date Immunization Notes Care Provider Smooth fernández 05-31-2007 influenza virus vaccine, unspecified formulation Radha Benavides ASSISTANT TECHNICIAN-RADIOLOGIST Work Phone: [facility] Payers Date Payer Category Payer Unknown [id number] 2020 Unknown [id number] 2020 Unknown [id number]. [id number] 2018 Self-pay 2016 Unknown ADRIANASOMJ [facility] MEDICAID xxxxxxxxxxx 2016-Present [phone] CLAIMS DEPARTMENT [address] [place] [address] xxxxxxxxxxx [id number]. [id number] 1998 Unknown [id number] 2.840.1.381813.3.579.2.593 1998 Unknown [id number] 2.16.840.1.092755.3.579.2.903 1998 Unknown [id number] 2.16.840.1.169331.3.579.2.174 1998 Unknown [id number] 2.16840.1.788858.3.579.2.174 1998 Unknown [id number] 2.16.840.1.781326.3.579.2.174 1998 Unknown [id number] 2.16.840.1.877804.3.579.2.174 1998 Unknown [id number] 2.16.840.1.695663.3.579.2.174 1998 Unknown [id number] 2.16.840.1.763501.3.579.2.174 1998 Unknown [id number] 2.16.840.1.132087.3.579.2.174 1998 Unknown [id number] 2.16.840.1.509231.3.579.2.174 1998 Unknown [id number] 2.16.840.1.835601.3.579.2.174 1998 Unknown [id number] 2.16.840.1.717440.3.579.2.983 1998 Unknown [id number] 2.16.840.1.281237.3.579.2.983 1998 Unknown [id number] 2.16.840.1.625598.3.579.2.983 1998 Unknown [id number] 2.16.840.1.289677.3.579.2.983 1998 Unknown [id number] 2.16.840.1.256985.3.579.2.983 1998 Unknown [id number] 2.16.840.1.780525.3.579.2.983 1998 Unknown [id number] 2.16.840.1.089419.3.579.2.983 1998 Unknown [id number] 2.16.840.1.927459.3.579.2.983 1998 Unknown [id number] 2.16.840.1.934022.3.579.2.983 1998 Unknown [id number] 2.16.840.1.183684.3.579.2.983 1998 Unknown [id number] 2.16.840.1.453060.3.579.2.983 1998 Unknown [id number] 2.16.840.1.307683.3.579.2.983 1998 Unknown [id number] 2.16.840.1.960101.3.579.2.983 1998 Unknown [id number] 2.16.840.1.534929.3.579.2.173 1998 Unknown [id number] 2.16.840.1.930884.3.579.2.173 1998 Unknown [id number] 2.16.840.1.696299.3.579.2.173 1998 Unknown [id number] 2.16.840.1.993693.3.579.2.173 1998 Unknown [id number] 2.16.840.1.591136.3.579.2.173 1998 Unknown [id number] 2.16.840.1.298140.3.579.2.173 1998 Unknown [id number] 2.16.840.1.365429.3.579.2.173 1998 Unknown [id number] 2.16.840.1.366364.3.579.2.983 1998 Unknown [id number] 2.16.840.1.727697.3.579.2.983 1998 Unknown [id number] 2.16.840.1.624312.3.579.2.983 1998 Unknown [id number] 2.16.840.1.095078.3.579.2.983 1998 Unknown [id number] 2.16.840.1.203329.3.579.2.983 1998 Unknown [id number] 2.16.840.1.814775.3.579.2.983 1998 Unknown [id number] 2.16.840.1.427388.3.579.2.983 1998 Unknown [id number] 2.16.840.1.399531.3.579.2.983 1998 Unknown [id number] 2.16.840.1.308562.3.579.2.983 1998 Unknown [id number] 2.16.840.1.850065.3.579.2.983 1998 Unknown [id number] 2.16.840.1.216931.3.579.2.983 1959 Unknown [id number] 2.16.840.1.444720.3.579.2.531 Social History Date Type Detail Facility Start: 05-18-2019 End: 09-25-2020 Tobacco smoking status NHIS Current every day smoker [facility] History of tobacco use Cigarette Smoker [place] Start: 05-18-2019 End: 09-16-2023 Alcohol intake Yes [place], [place] Start: 09-29-2016 Alcohol Comment occasional [place], [place] Start: 1998 Sex Assigned At Not on file [place], [place] Start: 08-24-2019 End: 09-16-2023 Cigarettes smoked current (pack per day) - Reported [facility] Work Phone: Start: 08-24-2019 End: 12-15-2021 Alcohol intake Current drinker of alcohol (finding) [place], [place] Start: 09-12-2019 Alcohol Comment occasional , weekend s [place] Exposure to SARS-CoV -2 (event) Unable to assess [place] Start: 09-25-2020 End: 09-16-2023 Tobacco use and exposure Never used [facility] Start: 09-25-2020 End: 11-14-2023 Alcohol intake Ex-drinker (finding) [facility] Start: 10-02-2020 Tobacco Comment <1 pack daily 1 [facility] Start: 02-09-2021 [facility] Work Phone: Start: 03-25-2021 Tobacco smoking stat [facility] Light tobacco smoker [facility] Start: 09-25-2021 End: 10-15-2021 Exposure to SARS-CoV-2 (event) Not sure [facility] Start: 06-12-2021 End: 09-16-2023 Tobacco smoking status NHIS Ex-smoker [facility] Start: 05-19-2021 Tobacco smoking stat [facility] Occasional tobacco smoker [facility] Start: 09-14-2021 End: 05-11-2022 Tobacco Comment Pt seldom vapes [facility] History of tobacco use Current smoker [facility] Start: 12-15-2021 Alcohol Comment occ [facility] Work Phone: Adolescent depressio n screening assessment 9 [facility] Medical Equipment Procedure Code Equipment Code Equipment Origin al Text Equipment Identifier Dates Fasting & 2 hr P P each meal [id number] Start: 09-10-2021 Pt to test four times daily fasting, 2 hr pp, bedtime [id number] Start: 09-10-2021 1 each by Other route 4 times daily One glucometer, test strips, lancets - per insurance coverage [id number] Start: 09-10-2021 End: 09-10-2022 Pt to check BS fasting 2 hours post each meal [id number] Start: 09-10-2021 Clinical Notes 11-06-2020 to 11-29-2023 Nicole Norton RN - 11/29/2023 1:30 PM Samuel Norton RN - 11/01/2023 1:30 PM Samuel Norton RN - 09/26/2023 2:00 PM Sara Benavides APRN-RONN - 05/11/2022 8:20 AM EDTInstructions Note Date & Type Note Facility 11-29-2023 History of Present illness Narrative 1350- Patient arrived per ambulation, accompanied by significant other. Alert, oriented x 3. Assisted to recliner. Patient states she did not have labs drawn at outside facility as originally planned. Lab notified to draw labs today. 1455- Sublocade given in left lower quadrant. Discharged per ambulation, accompanied by significant other, in stable condition. Verbalizes understanding of instructions. documented in this encounter [facility] 11-01-2023 History of Present illness Narrative 1325- Patient arrived per ambulation, accompanied by self. Alert, oriented x 3. Assisted to recliner. 1405- Sublocade given. Patient informed that she will need labs prior to injection. Confirmed with Alissa at Dr. Cox's office that hepatic function panel can be placed prior to next appointment. Orders placed and printed for patient to have done labs done at outside facility per her request. Discharged per ambulation, accompanied by self, in stable condition. Verbalizes understanding of instructions. documented in this encounter [facility] 09-26-2023 History of Present illness Narrative 1420-Patient arrived per ambulation, accompanied by self. Alert, oriented x 3. Assisted to recliner. Patient states she has received sublocade in the past. Ice provided to apply to site prior to injection. 1505- Discharged per ambulation, accompanied by self, in stable condition. Verbalizes understanding of instructions. documented in this encounter [facility] 05-11-2022 History of Present illness Narrative Follow Up Visit Christine Salcido [id number] 1998 05/11/2022 Chief Complaint Patient presents with Addiction problem History of Present Illness: Christine Salcido is a 22 y.o. female presenting for follow up for MAT. Following with [facility]. Was dx with gestational dm. Post baby [...] consoling with [facility]ra De La Rosa in [place]. Attending as set up and directed by [...] by Nasal route once for 1 dose. [place] into the nose as directed. Call 911. [...] is with [facility] De La Rosa in [place]. Will cont with them. Compliant and verified [...] daily. TAMICA Zavaleta documented in this encounter [facility] 03-11-2022 History of Present illness Narrative Follow Up Visit Christine Salcido [id number] 1998 03/11/2022 Chief Complaint Patient presents with Medication Management Opioid dependence History of Present Illness: Christine Salcido is a 21 y.o. female presenting for follow up for MAT. Following with [facility]. Was dx with gestational dm. Post baby [...] consoling with [facility] De La Rosa in [place]. Attending as set up and directed by [...] by Nasal route once for 1 dose. [place] into the nose as directed. Call 911. [...] is with [facility] De La Rosa in [place]. Will cont with them. Compliant and verified [...] SCREEN TAMICA Zavaleta documented in this encounter [facility] 02-08-2022 History of Present illness Narrative Follow Up Visit Christine Salcido [id number] 1998 02/08/2022 Chief Complaint Patient presents with Medication Management Opioid dependence History of Present Illness: Christine Salcido is a 21 y.o. female presenting for follow up for MAT. Following with [facility]. Was dx with gestational dm. Post baby [...] consoling with [facility] De La Rosa in [place]. Attending as set up and directed by [...] by Nasal route once for 1 dose. [place] into the nose as directed. Call 911. [...] is with [facility] De La Rosa in [place]. Will cont with them. Compliant and verified [...] SCREEN TAMICA Zavaleta documented in this encounter [facility] 01-06-2022 History of Present illness Narrative Follow Up Visit Christine Salcido [id number] 1998 01/06/2022 Chief Complaint Patient presents with Medication Management Opioid dependence History of Present Illness: Christine Salcido is a 21 y.o. female presenting for follow up for MAT. Following with [facility]. Was dx with gestational dm. Post baby [...] consoling with [facility] De La Rosa in [place]. Attending as set up and directed by [...] by Nasal route once for 1 dose. [place] into the nose as directed. Call 911. [...] is with [facility] De La Rosa in [place]. Will cont with them. Compliant and verified [...] daily. TAMICA Zavaleta documented in this encounter [facility] 12-08-2021 History of Present illness Narrative Follow Up Visit Christine Salcido [id number] 1998 12/08/2021 Chief Complaint Patient presents with Medication Management Opioid dependence in remission History of Present Illness: Christine Salcido is a 21 y.o. female presenting for follow up for MAT. Following with [facility]. Was dx with gestational dm. Post baby [...] consoling with [facility] De La Rosa in [place]. Attending as set up and directed by [...] by Nasal route once for 1 dose. [place] into the nose as directed. Call 911. [...] is with [facility]ra De La Rosa in [place]. Will cont with them. Compliant and verified [...] for long-term opiate analgesic use - POCT ALELUCIANO DRUG SCREEN - buprenorphine 8 MG sublingual tablet; Place 1 tablet under tongue daily. TAMICA aZvaleta documented in this encounter [facility] 11-10-2021 History of Present illness Narrative Follow Up Visit Christine Salcido [id number] 1998 11/10/2021 Chief Complaint Patient presents with Medication Management Opioid dependence. 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 History of Present Illness: Christine Salcido is a 21 y.o. female presenting for follow up for MAT. Following with [facility]. Was dx with gestational dm. Post baby [...] consoling with [facility]ra De La Rosa in [place]. Attending as set up and directed by [...] by Nasal route once for 1 dose. [place] into the nose as directed. Call 911. [...] or performed in visit on 10/13/21 POCT ALERE DRUG SCREEN Result Value Ref [...] is with Kindra De La Rosa in [place]. Will cont with them. Compliant and verified [...] (infant) TAMICA Zavaleta documented in this encounter [facility] 10-15-2021 Hospital Discharge instructions Estephanie Coates, GI - 10/15/[address] Vasquez Hassan [facility] Dr. Ida Sparrow [address] [place] [address] [facility] [address] [place] ACTIVITY LIMITATIONS: ( X)Up and [...] AND DELIVERY . documented in this encounter [facility] Phone: 10-05-2021 Hospital Discharge instructions Minnie Otto, RN - 10/05/[address] Vasquez Hassan [facility] Dr. Ida Sparrow [facility] [address] [facility] [address] [facility] [address] [place] [address] Ida TAMAYO [facility] [address] [facility] [phone] Nely Roberto, MSN, ASSISTANT TECHNICIAN, CNM [facility] [address] [facility] [facility] [address] [address] Wilson [address] [facility] [address] Jody Angel CN [address] [place] [address] [place] [address] Paris Courtney CN [address] [place] [address] [place] [address] [phone] ACTIVITY LIMITATIONS: ( x )Up and about [...] AND DELIVERY . documented in this encounter [facility] Phone: 09-16-2021 History of Present illness Narrative Christine Salcido was scheduled for Diabetes Education on 09/16/21 and did not show for her appointment. Message was left to reschedule and I have not received a follow up call in response. I am happy to see Christine for Diabetes Education. Thank you, Sarah Delaney RN [facility] [phone] documented in this encounter [facility] Phone: 09-16-2021 History of Present illness Narrative [...] for the referral. documented in this encounter [facility] Phone: 09-14-2021 History of Present illness Narrative Follow Up Visit Christine Salcido [id number] 1998 09/14/2021 Chief Complaint Patient presents with Medication Management opioid dependence Other FYI: Pt states since last OV she was dx with gestational diabetes and was told hemoglobin is super low History of Present Illness: Christine Salcido is a 21 y.o. female presenting for follow up for MAT. Following with [facility]. 8 months preg. Was dx with gestational [...] last report. States going to consoling with [facility] in [place]. Attending as set up and directed by [...] stressful personal problems. 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 Would like to taper down and come off of management. Consoling is with [facility] in [place]. Will cont with them. Compliant and verified [...] age TAMICA Zavaleta documented in this encounter [facility] 06-16-2021 History of Present illness Narrative Follow Up Visit Christine Salcido [id number] 1998 06/16/2021 Chief Complaint Patient presents with Medication Management opioid dependence in remission History of Present Illness: Christine Salcido is a 21 y.o. female presenting for follow up for MAT. Recently pos . Following with [facility]. Has her 20 wk scan tomorrow. Discussed [...] consoling with [facility] in [place]. Attending as set up and directed by [...] stressful personal problems. 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 Would like to taper down and come off of management. Consoling is with [facility] in [place]. Will cont with them. Compliant and verified [...] disorder TAMICA Zavaleta documented in this encounter [facility] 03-25-2021 Instructions Martha Lara, DO - 03/25/2021 [...] include drinking lots of fluids and taking gwaq-ftr-hauubwd pain medicine. You will probably feel better [...] amount of fluids you drink. Take an mous-bmi-whqzibv pain medicine, such as acetaminophen (Tylenol), ibuprofen (Advil, Motrin), or naproxen (Aleve). Read and follow all instructions on the label. Before you use cough and cold medicines, check the label. These medicines may not be safe for young children or for people with certain health problems. Be careful when taking xlly-yyl-clzgnwz cold or flu medicines and Tylenol at [...] more? Log into your personal health record on?[email or web address] hospital[facility] om?and enter?K520?in the Education box to learn more about Upper Respiratory Infection (Cold): Care Instructions. Current as of: May 12, 2020 Content Version: 12.9 [employer]. Care instructions adapted under license by your healthcare professional. If you have questions about a medical condition or this instruction, always ask your healthcare professional. [employer] disclaims any warranty or liability for your use of this information. documented in this encounter [facility] 03-25-2021 History of Present illness Narrative PATIENT NAME: Christine Salcido [facility]: [address] [facility] [id number] DATE OF VISIT: 03/25/2021 DATE OF : [...] Friends and Family: Not on file Attends Yarsani Services: Not on file Active Member of [...] visit. Martha Lara documented in this encounter [facility] 03-03-2021 History of Present illness Narrative Follow Up Visit Christine Salcido [id number] 1998 03/03/2021 Chief Complaint Patient presents with [...] current se. Taking as prescribed. Has a [facility] apt on 03/10/[address] Ovalle out of [facility]. History: Past Medical History: Diagnosis Date Anxiety [...] Social Gatherings with Friends and Family: Attends Yarsani Services: Active Member of Clubs or Organizations: [...] presents for follow up. Pos . Has [facility] apt end of the month. Managed in [...] SCREEN TAMICA Zavaleta documented in this encounter [facility] 02-26-2021 History of Present illness Narrative Follow Up Visit Christine Salcido [id number] 1998 02/26/2021 Chief Complaint Patient presents with [...] Smoking status: Current Every Day Smoker Years: 7 Types: Cigarettes Smokeless tobacco: Never Used Tobacco [...] Social Gatherings with Friends and Family: Attends Yarsani Services: Active Member of Clubs or Organizations: [...] Anxiety TAMICA Zavaleta documented in this encounter [facility] 01-29-2021 History of Present illness Narrative Follow Up Visit Christine Salcido [id number] 1998 01/29/2021 Chief Complaint Patient presents with [...] Smoking status: Current Every Day Smoker Years: 7. Types: Cigarettes Smokeless tobacco: Never Used Tobacco [...] Social Gatherings with Friends and Family: Attends Yarsani Services: Active Member of Clubs or Organizations: [...] food/milk TAMICA Zavaleta documented in this encounter [facility] 06-17-2021 History of Present illness Narrative Follow Up Visit Christine Salcido [id number] 1998 01/01/2021 Chief Complaint Patient presents with [...] Social Gatherings with Friends and Family: Attends Yarsani Services: Active Member of Clubs or Organizations: [...] tablet under tongue daily every morning. Anxiety TAMIAC Zavaleta documented in this encounter [facility] 12-04-2020 History of Present illness Narrative Pt denied any concerns prior to injection. Administered 0.5 g Rocephin into pts left gluteus. Pt tolerated injection well. Follow Up Visit Christine Salcido [id number] 1998 12/04/2020 Chief Complaint Patient presents with [...] that she was trying to get into [facility] but apts too far out. Asking about [...] Social Gatherings with Friends and Family: Attends Yarsani Services: Active Member of Clubs or Organizations: [...] g, Intramuscular, Once (In Clinic), Radha Benavides, ASSISTANT TECHNICIAN-RADIOLOGIST ROS: Review of Systems Constitutional: Negative for [...] or performed in visit on 11/20/20 POCT [facility]ERE DRUG SCREEN Result Value Ref [...] Not able to get timely apt with [facility] -will send urine for culture. -will tx [...] Future TAMICA Zavaleta documented in this encounter [facility] 11-20-2020 History of Present illness Narrative Follow Up Visit Christine Salcido [id number] 1998 11/20/2020 Chief Complaint Patient presents with [...] Friends and Family: Not on file Attends Yarsani Services: Not on file Active Member of Clubs or Organizations: Not on file Attends Club or Organization Meetings: Not on file Marital Status: Not on file Intimate Partner Violence: Fear of Current or Ex-Partner: Not on file Emotionally Abused: Not on file Physically Abused: Not on file Sexually Abused: Not on file Social History Tobacco Use Smoking Status Current Every Day Smoker Years: 7. Types: Cigarettes Smokeless Tobacco Never Used Tobacco [...] Anxiety TAMICA Zavaleta documented in this encounter [facility] 11-06-2020 History of Present illness Narrative Follow Up Visit Christine Salcido [id number] 1998 11/06/2020 Chief Complaint Patient presents with [...] Friends and Family: Not on file Attends Yarsani Services: Not on file Active Member of [...] Anxiety TAMICA Zavaleta documented in this encounter [facility] Evaluation note Diagnosis Opioid dependence in remission- Primary Opioid type dependence, in remission Encounter for long-term opiate analgesic use Encounter for long-term (current) use of other medications Anxiety Anxiety state, unspecified [facility] Diagnosis Opioid dependence in remission- Primary Opioid type dependence, in remission Encounter for long-term opiate analgesic use Encounter for long-term (current) use of other medications Anxiety Anxiety state, unspecified Exposure to STD Contact with or exposure to venereal diseases documented [facility] Diagnosis Opioid dependence in remission- Primary [...] hematuria Acute cystitis [facility] Diagnosis Amenorrhea Absence of menstruation Positive urine test Encounter for supervision of normal first in first trimester Supervision of normal first documented in this encounter [facility] Phone: evaluation note* Diagnosis Acute nasopharyngitis- Primary Acute nasopharyngitis (common cold) Exposure to SARS-associated coronavirus Ageusia Disturbances of sensation of smell and taste [facility] [place] [facility]* Diagnosis Abdominal pain during in first trimester- Primary Urinary tract infection without hematuria, site unspecified documented in this encounter [facility] Phone: evaluation note* Diagnosis with 11 completed weeks gestation documented in this encounter [facility] Phone: evaluation note* Diagnosis Rectal bleeding- Primary Hemorrhage of rectum and anus documented in this encounter [facility] Phone: evallvjvbu note* Diagnosis Viral URI- Primary Acute upper respiratory infections of unspecified site Otalgia, unspecified laterality documented in this encounter [facility] Phone: evaluation note* Diagnosis Opioid dependence in remission- Primary Opioid type dependence, in remission Encounter for long-term opiate analgesic use Encounter for long-term (current) use of other medications , unspecified gestational age Anxiety Anxiety state, unspecified Bipolar 1 disorder Bipolar I disorder, most recent episode (or current) unspecified [facility] Diagnosis Opioid dependence in remission- Primary Opioid type dependence, in remission Encounter for long-term opiate analgesic use Encounter for long-term (current) use of other medications , unspecified gestational age Anxiety Anxiety state, unspecified [facility] encounter [facility] Diagnosis 36 weeks gestation of state, incidental documented in this encounter [facility] Phone: evaluation note* Diagnosis uterine contractions in third trimester, antepartum- Primary documented in this encounter [facility] Phone: evallndity note* Diagnosis Opioid dependence in remission- Primary Opioid type dependence, in remission Encounter for long-term opiate analgesic use Encounter for long-term (current) use of other medications Anxiety Anxiety state, unspecified [facility]* Diagnosis Positive test- Primary examination or test, positive result Opioid dependence in remission Opioid type dependence, in remission Encounter for long-term opiate analgesic use Encounter for long-term (current) use of other medications documented [facility]* Diagnosis Opioid dependence in remission- Primary Opioid type dependence, in remission Encounter for long-term opiate analgesic use Encounter for long-term (current) use of other medications () Other specified conditions influencing health status [facility]* Diagnosis Opioid dependence in remission- Primary Opioid type dependence, in remission Encounter for long-term opiate analgesic use Encounter for long-term (current) use of other medications documented [facility]* Diagnosis Opioid dependence in remission- Primary Opioid type dependence, in remission Encounter for long-term opiate analgesic use Encounter for long-term (current) use of other medications [facility]* Diagnosis Opioid dependence in remission- Primary Opioid type dependence, in remission [facility]* Diagnosis Opioid dependence in remission- Primary Opioid type dependence, in remission documented in this encounter [facility] [place] [facility]* Diagnosis Opioid dependence in remission- Primary Opioid type dependence, in remission [facility] encounter [facility]* Attachments The following attachments cannot be sent through Care Everywhere. * : Abdominal Pain (Bahamian) [facility]: Hospital Discharge instructions* Attachments The following attachments cannot be sent through Care Everywhere. * Rectal Bleeding (Bahamian) [facility]: Hospital Discharge instructions* Attachments The following attachments cannot be sent through Care Everywhere. 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 * Acute Concussion (Bahamian) documented in this encounter* Attachments The following attachments cannot be sent through Care Everywhere. * Vaginal Yeast Infection (Bahamian) documented in this encounter* Attachments The following attachments cannot be sent through Care Everywhere. * Chlamydia (Bahamian) * Pelvic Pain (Bahamian) documented in this encounter* Instructions* Karlo Warner MD - 01/22/2020 Antimicrobial therapy Acute bronchitis usually is caused by viruses. Inappropriate use of antibiotics for viral respiratory infections can cause adverse events and contribute to development of antibiotic resistance. Multiple major medical societies and health care organizations, including the [place] Centersfor Disease Control and Prevention, [place] [employer], and the National Health Services in the [place], specifically recommend against the routine use of empiric antibiotics for the treatment of acute bronchitis. Avoidance of antibiotics for the treatment of adults with acute bronchitis was also included as a component of the Healthcare Effectiveness Data and Information Set reported to the National Committee for Library Page in 2007 and included as a National Quality Forum quality measure. * Attachments The following attachments cannot be sent through Care Everywhere. * Bronchitis (Bahamian) * Headache (Bahamian) documented in this encounter Assessments Diagnosis Concussion [...] History of Present Illness * Radha Benavides, ASSISTANT TECHNICIAN-RADIOLOGIST - 09/25/2020 10:00 AM EST New Patient Visit Christine Salcido [id number] 2000 09/25/2020 Chief Complaint Patient presents with [facility] Appt. History of Present Illness: Christine Salcido [...] Friends and Family: Not on file Attends Yarsani Services: Not on file Active Member of [...] it. Patient is currently in counseling at [facility]. She is going to keep going to [...] 16 her high school boyfriend went to longterm. For 5 years. Her life spiraledout of controlled. She was living house to to house smoking crack and doing dope. Her mom at the time was also doing drugs. So it was not a good environment at all. 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 This means two times people worse wires when going to buy heroin for her. She went to longterm. They sent her to an inpatient facility in [place], [place]. She was told that if she completed treatment there that she would be able to get the charges against her dropped. She endedup messing up and going back to longterm in 2018. She [facility]. Then [facility]5 [facility]. She did fairly decent until Summer for 2019 when she relapsed again. She lost her car and her apartment. She spent 60 days in longterm and they ended up sending her to the [facility] in [place], [place]. She went in March 2020 till now. She has relapsed once since being there.She called her security control room officer and he made her serve two weeks in longterm but was able to return to [facility]. Her security control room officer is Jeancarlos Marin with [facility]. She is still in the [facility] until she is able to save up enough money to live on her own. She is not allowed to live with her mom or her dad. They say her mom and dad are both triggers for her to relapse. Her mom is a previous drug addict and her dad lives in [place] and her security control room officer does not want her living in [place]. She does have Felony charges and then some on her due to not completing programs. She has been seeing Dr. Cox at [facility] and was previously seeing Janet Ricci in [place], [place]. She last saw Kenny on 09/17/20. [...] no children. She was on Vivitrol in 2019 while in [address] inpatient [facility] in [facility] for 6 months. Follow-Up: Preventive labs were [...] pt tolerated collection well. * Radha Benavides, ASSISTANT TECHNICIAN-RADIOLOGIST - 10/02/2020 10:50 AM EDT Follow Up Visit Christine Salcido [id number] 1998 10/02/2020 Chief Complaint Patient presents with [...] Friends and Family: Not on file Attends Yarsani Services: Not on file Active Member of [...] PM EDT Follow Up Visit Christine Salcido [id number] 1998 10/09/2020 Chief Complaint Patient presents with [...] Friends and Family: Not on file Attends Yarsani Services: Not on file Active Member of [...] AM EDT Follow Up Visit Christine Salcido [id number] 1998 10/23/2020 Chief Complaint Patient presents with [...] Friends and Family: Not on file Attends Yarsani Services: Not on file Active Member of [...] Specialty Diagnoses / Procedures Referred By Hilaria t Referred To Contact Diagnoses Opioid dependence in remission Encounter for long-term opiate analgesic use , unspecified gestational age Radha Benavides APRN-CNP [address] [place] [address] Referral ID Status Reason Start Date Expiration Date Visits Re quested Visits Authorized [id number] Closed 1 1 Referral ID Status Reason Start Date Expiration Date Visits Re quested Visits Authorized [id number] Closed 1 1 Specialty Diagnoses / Procedures Referred By Hilaria waterman Referred To Contact Diagnoses Opioid dependence in remission Encounter for long-term opiate analgesic use Radha Benavides APRN-CNP [address] [place] [address] Referral ID Status Reason Start Date Expiration Date Visits Re quested Visits Authorized [id number] Closed 1 1 Referral ID Status Reason Start Date Expiration Date Visits Re quested Visits Authorized [id number] Closed 1 1 Referral ID Status Reason Start Date Expiration Date Visits Re quested Visits Authorized [id number] Closed 1 1 Referral ID Status Reason Start Date Expiration Date Visits Re quested Visits Authorized [id number] Closed 1 1 Additional Source Comments INFORMATION SOURCE (unrecogn ized section and content) DATE CREATED AUTHOR 08/31/2018 [facility] DATE CREATED AUTHOR AUTHOR'S ORGANIZ ATION 10/23/2018 [facility] DATE CREATED AUTHOR AUTHOR'S ORGANIZ ATION 03/26/2021 [facility] DATE CREATED AUTHOR AUTHOR'S ORGANIZ ATION 10/03/2021 [facility] DATE CREATED AUTHOR AUTHOR'S ORGANIZ ATION 05/12/2022 [facility] DATE CREATED AUTHOR AUTHOR'S ORGANIZ ATION 05/20/2022 [facility] DATE CREATED AUTHOR AUTHOR'S ORGANIZ ATION 08/23/2022 [facility] DATE CREATED AUTHOR AUTHOR'S ORGANIZ ATION 12/01/2023 [facility] Reason for Visit (unrecogniz ed section [...] Reason Comments Abdominal Pain 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 Reason Comments Abdominal [...] weeks gestation of Abnormal glucose complicating Karlee Hassan APRN - JUNAID [address] [place] [address] [facility] [address] [place] [address] Referral ID Status Reason Start Date Expiration Date V isits Requested Visits Authorized [id number] Open Specialty Services Required 09/10/2021 09/10/2022 2 2 Reason Comments Contractions Reason Comments Medication Management opioid dependence; Pt recently found out she was , Pts initial apt with [facility] 03/10 Reason Comments Medication Management Opioid dependence. 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 Reason Comments Medication Management Opioid dependence in remission Reason Comments Medication Management Opioid dependence Reason Comments Medication Management Opioid dependence Reason Comments Addiction problem Reason Comments Immunization/Injection Specialty Diagnoses / Procedures Referred By Contac t Referred To Contact Chemotherapy Diagnoses Opioid dependence in remission Virginia Cox, DO [address] [place] [address] [facility] [address] [place] [id number] Referral ID Status Reason Start Date Expiration Date Visits Re quested Visits Authorized [id number] Closed 09/16/2023 10/10/2024 1 1 Care Teams (unrecognized sec tion and content) Application Security Architect Relationship Specialty Start Date End Date Marianne Tucker, RADIOLOGIST [address] [place] [address] PCP - General Nurse Practitioner 03/25/21 Application Security Architect Relationship Specialty Start Date End Date Janet Ricci ASSISTANT TECHNICIAN - RADIOLOGIST [address] [place] [address] PCP - General Specialist 08/07/18 Application Security Architect Relationship Specialty Start Date End Date Janet Ricci ASSISTANT TECHNICIAN - RADIOLOGIST [address] [address] PCP - General Specialist 08/07/18 Application Security Architect Relationship Specialty Start Date End Date Radha Benavides, ASSISTANT TECHNICIAN-RADIOLOGIST [address] [place] [address] PCP - General Family Medicine 09/25/20 Application Security Architect Relationship Specialty Start Date End Date Janet Ricci ASSISTANT TECHNICIAN - RADIOLOGIST [address] [place] [address] PCP - General Specialist 08/07/18 Application Security Architect Relationship Specialty Start Date End Date Keiry Janet Amber, ASSISTANT TECHNICIAN - RADIOLOGIST [address] [place] [address] PCP - General Specialist 08/07/18 Application Security Architect Relationship Specialty Start Date End Date Keiry Janet Amber, ASSISTANT TECHNICIAN - RADIOLOGIST [address] [place] [address] PCP - General Specialist 08/07/18 Application Security Architect Relationship Specialty Start Date End Date Keiry Janet Amber, ASSISTANT TECHNICIAN - RADIOLOGIST [address] [place] [address] PCP - General Specialist 08/07/18 Application Security Architect Relationship Specialty Start Date End Date Keiry Janet Clark, ASSISTANT TECHNICIAN - RADIOLOGIST [address] [place] [address] PCP - General Specialist 08/07/18 Application Security Architect Relationship Specialty Start Date End Date Radha Benavides, ASSISTANT TECHNICIAN-RADIOLOGIST [address] [place] [address] PCP - General Family Medicine 09/25/20 Application Security Architect Relationship Specialty Start Date End Date Radha Benavides, ASSISTANT TECHNICIAN-RADIOLOGIST [address] [place] [address] PCP - General Family Medicine 09/25/20 Application Security Architect Relationship Specialty Start Date End Date Radha Benavides, ASSISTANT TECHNICIAN-RADIOLOGIST [address] [place] [address] PCP - General Family Medicine 09/25/20 Application Security Architect Relationship Specialty Start Date End Date Radha Benavides, ASSISTANT TECHNICIAN-RADIOLOGIST [address] [place] [address] PCP - General Family Medicine 09/25/20 Application Security Architect Relationship Specialty Start Date End Date Radha Benavides, ASSISTANT TECHNICIAN-RADIOLOGIST [address] [place] [address] PCP - General Family Medicine 09/25/20 Application Security Architect Relationship Specialty Start Date End Date Janet Ricci, ASSISTANT TECHNICIAN - RADIOLOGIST [address] [place] [address] PCP - General Specialist 08/07/18 Application Security Architect Relationship Specialty Start Date End Date Radha Benavides, ASSISTANT TECHNICIAN-RADIOLOGIST [address] [place] [address] PCP - General Family Medicine 09/25/20 Application Security Architect Relationship Specialty Start Date End Date Radha Benavides, ASSISTANT TECHNICIAN-RADIOLOGIST [address] [place] [address] PCP - General Family Medicine 09/25/20 Application Security Architect Relationship Specialty Start Date End Date Radha Benavides, ASSISTANT TECHNICIAN-RADIOLOGIST [address] [place] [address] PCP - General Family Medicine 09/25/20 Ordered Prescriptions (unrec ognized section and content) Prescription Sig Dispensed Refills Start Date End Da te cephALEXin (KEFLEX) 500 MG capsule Take 1 capsule by mouth 3 times daily 15 capsule 0 04/08/2021 Scheduled Active and Recently Administ ered Medications (unrecognized section and content) Medication Order 04/06/2021 04/07/2021 04/08/2021 cephALEXin (KEFLEX) capsule 500 mg (COMPLETED) 500 mg, Oral, ONCE, On Tue04/08/21 at 0445, For 1 dose 0445 (Given - Provid er: Manuel Mcgowan RN) Scheduled Medication Order 10/13/2021 10/14/2021 10/15/2021 amoxicillin (AMOXIL) capsule 500 mg (COMPLETED) 500 mg, Oral, ONCE, 1 dose, On [place] 10/15/21 at 2215, Antimicrobial Indications: Urinary Tract Infection 2204 (Given - Provid er: Estephanie Coates RN) [...] BE BASED ON THE PRIMARY CLINICAL RECORDS. [employer] provides no warranty or guarantee of the accuracy or completeness of information in this document.
[2024-01-09] MEDS: KETOROLAC TROMETHAMINE 60 MG/2 ML VIAL IM (10:08)
== END 2024-01-09 10:11 | disposition home or self-care (01) ==
PROVIDERS: Emergency Provider Emergency Medicine; PCP Nurse Practitioner
DX: K08.89 Other specified disorders of teeth and supporting structures (principal); K02.9 Dental caries, unspecified
CPT/HCPCS: 96372; 99284; J1885

== ENCOUNTER 2024-05-06 21:00 | Emergency (ER) | payer OTHER, SELFPAY ==
[2024-05-06 21:04] VITALS: BP 135/98; PULSE 95; TEMP 37; O2SAT 100; BMI 21.6
--- OUTSIDE RECORDS SUMMARY | 2024-05-06 21:08 | XMS_ITS | CCD ---
Author Organization [facility] Inform ion [facility] Care Team Providers Care Book Shelver Name Role Phone KEIRY, JANET R Admitting Unavailable KEIRY, JANET R Attending Unavailable KEIRY, JANET R Primary Care Unavailable KEIRY, JANET R Consulting Unavailable Harshal Car Admitting Unavailable Harshal Car Attending Unavailable Keiry, Janet R Primary Care Unavailable Keiry, Janet R Primary Care Provider Janet Fu R Primary Care Provider Radha Benavides Primary Care Provider Radha Benavides Primary Care Provider [phone] Kennedy MENAGERIE CARETAKER-SHRIMPING BOAT CAPTAINRadha Primary Care Provider Kennedy MENAGERIE CARETAKER-SHRIMPING BOAT CAPTAIN, Radha Lieberman Primary Care Provider Keiry MENAGERIE CARETAKER - SHRIMPING BOAT CAPTAIN, Janet Clark Primary Care Provider Marianne Tucker CNP Primary Care Provider [phone] MARIANNE TUCKER Primary Care Unavailable MARTHA LARA [...] KEIRY, JANET R Primary Care Unavailable Benavides [employer]NAGER[employer] CARETAKER-SHRIMPING BOAT CAPTAIN, Radha Mio Primary Care Provider SELF, SELF Referring Unavailable [...] BENAVIDES, RADHA L Primary Care Unavailable BENAVIDES, RAHDA L Attending Unavailable SELF, SELF Referring Unavailable [...] Unavailable BENAVIDES, RADHA L Attending Unavailable Keiry [facility], Janet R Primary Care Provider POOL, KARLEE E Referring Unavailable KEIRY, JANET R Primary Care Unavailable WYATT DSOUZA Referring Unavailable KEIRY, JANET R Primary Care Unavailable POOL, KALREE E Referring Unavailable KEIRY, JANET R Primary [...] KEIRY, JANET R Primary Care Unavailable Benavides [facility], Radha L Primary Care Provider KENNY, P. MARK Attending Unavailable KENNY, P. MARK Referring Unavailable BENAVIDES, RADHA L Primary Care Unavailable SELF, SELF Referring Unavailable KENNY, P. MARK Attending Unavailable BENAVIDES, RADHA L Primary Care Unavailable KENNY, P. MARK Referring Unavailable KENNY, P. MARK Attending Unavailable BENAVIDES, RADHA L Primary Care Unavailable BENAVIDES, RADHA L Primary Care Unavailable KENNY, P. MARK Referring Unavailable KENNY, P. MARK Attending Unavailable SELF, SELF Referring Unavailable KENNY, P. MARK Attending Unavailable BENAVIDES, RADHA L Primary Care Unavailable SELF, SELF Referring Unavailable KENNY, P. MARK Attending Unavailable BENAVIDES, RADHA L Primary Care Unavailable KENNY, P. MARK Referring Unavailable KENNY, P. MARK Attending Unavailable BENAVIDES, RADHA L Primary Care Unavailable KNENY, P. MARK Attending Unavailable KENNY, P. MARK Referring Unavailable BENAVIDES, RADHA L Primary Care Unavailable KENNY, P. MARK Referring Unavailable KENNY, P. MARK Attending Unavailable BENAVIDES, RADHA L Primary Care Unavailable KENNY, P. MARK Attending Unavailable KENNY, P. MARK Referring Unavailable BENAVIDES, RADHA L Primary Care Unavailable KENNY, P. MARK Referring Unavailable KENNY, P. MARK Attending Unavailable BENAVIDES, RADHA L Primary Care Unavailable CORRINA OCAMPO M Referring Unavailable CORRINA OCAMPO M Referring Unavailable Allergies Allergy Classification Reported Allergen(s) Allergy Type Date of Onset Reaction(s) Facility (1 source) Lactose Drug Allergy 06-20-2014 [facility] Repository (1 source) Lactose Drug Allergy 10-16-2018 [facility] Repository (1 source) Lactose Drug Allergy 09-25-2020 [facility] Medications Current Medications Medication Drug [...] 10/14/2021 11/10/2021 Discontinued (Reorder) Start: 05-19-2021 End: 12-30-2021 take 1 tablet under the tongue once [...] extended release oral tablet (3 sources) Uncompetitive H-qcfjjs-E-aspartate Receptor Antagonist, Sigma-1 Agonist Start: 01-22-2020 End: [...] 1 tablet by mouth once daily at [facility] ferrous sulfate (IRON 325) 325 (65 Fe) [...] Active Start: 10-14-2023 take 1 capsule by [facility] three times daily Gabapentin 300 MG capsule [...] by Nasal route once for 1 dose. Gattman into the nose as directed. Call 911. If no response in 2 minutes use a new nasal spray in other nostril. Repeat until help arrives. 1 Each 09/16/2023 Active Start: 10-13-2021 End: 10-13-2021 naloxone 4 MG/0.1ML Indicati ons: Opioid dependence in remission , Encounter for long-term opiate analgesic use 1 spray by Nasal route once for 1 dose. Gattman into the nose as directed. Call 911. [...] Translations: [Hemorrhage of anus and rectum] Episodic Genitourinary symptoms and ill-defined conditions (20 sources) Dysuria; Translations: [Dysuria] Onset: 0 10-01-2019 Episodic Headache; including migraine (1 source) Headache; Translations: [Nonintractable headache, unspecified chronicity pattern, unspecified headache type] Episodic Immunizations and screening for infectious disease (5 sources) Exposure to sexually transmissible disorder; Translations: [...] Otalgia; Translations: [Otalgia, unspecified ear] Episodic Other female genital disorders (1 source) Other specified noninflammatory disorders of vagina; Translations: [Other specified noninflammatory disorders of vagina] Onset: 4 Episodic Other inflammatory condition of skin (2 [...] Administrative/social admission (20 sources) 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; 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] Onset: 10-01-2019 [...] of esophagus, unspecified] Onset: 10-17-2018 10-01-2019 Episodic Intracranial injury (18 sources) Concussion with no loss of consciousness; Translations: [Concussion without loss of consciousness, initial encounter] Onset: 10-01-2019 10-01-2019 Episodic Mood disorders (4 sources) Major depressive disorder, single episode, unspecified; Translations: [Mood disorders] Onset: 08-16-2018 09-16-2023 Mycoses (18 sources) Candidiasis of vagina; Translations: [Candidiasis of vulva and vagina] Onset: 10-01-2019 Resolved: 12-15-2021 10-01-2019 Episodic Other aftercare (2 sources) 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 This does not exclude the possibility of infection because results are dependent on adequate specimen collection. GONORRHOEAE PCR, FL Negative (qualifier value) Neisseria gonorrhoeae not detected by nucleic acid amplification. This does not exclude the possibility of infection because results are dependent on adequate specimen collection. Normal [facility] Comment on above: Performed By: #### C [facility] #### [facility] ([id number]) [address] [place] [address] [address] [place] [address] Cytologyon 01-25-2024 Cytology Abnormal [facility] Comment on above: Result Comment: [facility] [address] [place] [address] Gynecologic Cytology Consultation Patient Name:LYRIC SALCIDOB:2000 (Age: 23)Gender:FTaken:4Reported:4Physician(s):Corrina Ocampo APRN-CNPCopy To: Rec. #:[id number]: #[id number] Final Cytologic Interpretation ThinPrep Pap Test (Cervical): Satisfactory for evaluation. A transformation zone component is present. SQUAMOUS EPITHELIAL CELL ABNORMALITY Atypical squamous cells of undetermined significance (ASC-US). This impression is based on only a few cells. [facility]/02/02/2024 Interpretation performed at [facility], [address] [place] [address], License number: [id number]. Electronically Signed Out By Gregory Kim MD Date of Last Menstrual Period: (None Given) Other Clinical Conditions: Depo-Provera Z01.419 Can Carrier exam wo/abn findings Source of Specimen ThinPrep Pap Test (Cervical) Thin Prep Pap (COOK HELPER PASTRY) Fee Code(s): G0145, 84970 The Pap test is a screening test with an inherent, but low, probability of error. The Pap test is primarily effective for the diagnosis and prevention of squamous cell carcinoma. Regular screening is critical for prevention. ThinPrep liquid-based slides, which meet the Field Service Specialist criteria for automated screening, have been screened by the ThinPrep Imaging System (as of 04/03/07) along with an additional manual rescreening by a main entree cook and cashier and, if indicated, by a pathologist. HIGH RISK HPV W/GENOon 01-24 HPV 31+33+35+39+45+51+52+5 6+58+59+66+68 DNA MARIA FERNANDA+probe Ql (Cvx) HPV SPECIMEN TYPE ThinPrep HPV 16 Negative (qualifier value) HPV 18 Negative (qualifier value) OTHER HIGH RISK HPV Positive (qualifier value) For the DNA of any or combination of the following HPV types: 31,33,35,45, 52,56,58,59,66 and 68. Normal [facility] Comment on above: Performed By: #### 7 1431-1 #### [facility] ([id number]) [address], [address] [place] [address] URINALYSISon 01-25-2024 Bilirubin Ql (U) Small Abnormal NEG [facility] Comment on above: Result Comment: Not confirmed, interpret positive results with caution. Performed By: #### U A #### [facility] ([id number]) [address], [address] [place] [address] BLOOD/HGB Trace Abnormal NEG [facility] Comment on above: Performed By: #### U A #### [facility] ([id number]) [address], [address] [place] [address] Color (U) YELLOW Normal YELLOW [facility] Comment on above: Performed By: #### U A #### [facility] ([id number]) [address], [address] [place] [address] Glucose Ql (U) Negative Normal NEG [facility] Comment on above: Performed By: #### U A #### [facility] ([id number]) [address], [address] [place] [address] Ketones Ql (U) Negative Normal NEG [facility] Comment on above: Performed By: #### U A #### [facility] ([id number]) [address], [address] [place] [address] Leukocyte esterase Test strip Ql (U) Small Abnormal NEG [facility] Comment on above: Performed By: #### U A #### [facility] ([id number]) [address], [address] [place] [address] MUCOUS PRESENT Abnormal NONE [facility] Comment on above: Performed By: #### U A #### [facility] ([id number]) [facility], [address] [place] [address] Nitrite Ql (U) Positive Abnormal NEG [facility] Comment on above: Performed By: #### U A #### [facility] ([id number]) [address], [address] [place] [address] pH (U) 6.5 [pH] Normal 5.0-8.5 [facility] Comment on above: Performed By: #### U A #### [facility] ([id number]) [address], [address] [place] [address] Protein Ql (U) 30 mg/dL Abnormal NEG [facility] Comment on above: Performed By: #### U A #### [facility] ([id number]) [address] [place] [address] R.B.CELLS 3 /hpf Normal 0-5 [facility] Comment on above: Performed By: #### U A #### [facility] ([id number]) [address], [address] [place] [address] Specific gravity (U) [Rel density] 1.017 Normal 1.003-1.035 [facility] Comment on above: Performed By: #### U A #### [facility] ([id number]) [address], [address] [place] [address] SQUAMOUS EPITHELIUM 1 /hpf Normal 0-5 [facility] Comment on above: Performed By: #### U A #### [facility] ([id number]) [address], [address] [place] [address] TURBIDITY CLEAR Normal CLEAR [facility] Comment on above: Performed By: #### U A #### [facility] ([id number]) [address], [address] [place] [address] Urobilinogen Qn (U) 3 {Jalyn'U}/dL High <1.1 [facility] Comment on above: Performed By: #### U A #### [facility] ([id number]) [address], [address] [place] [address] W.B.CELLS 24 /hpf High 0-5 [facility] Comment on above: Performed By: #### U A #### [facility] ([id number]) [address], [address] [place] [address] URINE CULTUREon 01-25-2024 Bacteria identified Cx Nom (U) CULTURE RESULTS NO GROWTH AT <1000 CFU/mL Normal [facility] Comment on above: Performed By: #### 6 30-4 #### [facility] ([id number]) [address], [address] [place] [address] VAGINITIS PANEL PCRon 2023 VAGINITIS PANEL PCR BACT. VAGINOSIS DNA Detected (qualifier value) Qualitative results are reported based on detection and quantitation of targeted organism markers which include: Lactobacillus spp. (L. crispatus and L. jensenii), Gardnerella vaginalis, Atopobium vaginae, Bacterial Vaginosis Associated Bacteria-2 (BVAB-2) and Megasphaera-1 FRANCISCO SPECIES DNA Not detected (qualifier value) Francisco species not detected include: C. albicans, C. tropicalis, C. parapsilosis or C. dubliniensis FRANCISCO KRUSEI DNA Not detected (qualifier value) No Francisco krusei detected FRANCISCO GLABRATA DNA Not detected (qualifier value) No Francisco glabrata detected TRICHOMONAS VAG DNA Not detected (qualifier value) No Trichomonas vaginalis detected NOTE BD MAX Vaginal Panel has not been evaluated for patients under 18 years old. Results for these patients should be reviewed and assessed in accordance with clinical presentation to determine patient diagnosis. Normal [facility] Comment on above: Performed By: #### V PPCR #### [facility] ([id number]) [address] [place] [address], [address] [place] [address] HEPATIC FUNCTION PANELon Albumin [Mass/Vol] 4.6 g/dL [facility] ALP [Catalytic activity/Vol] 56 U/L [facility] ALT [Catalytic activity/Vol] 15 U[facility] AST [Catalytic activity/Vol] 26 U/L [facility] Bilirubin [Mass/Vol] 0.5 mg/dL [facility] Bilirubin.direct [Mass/Vol] 0.2 mg/dL [facility] Protein [Mass/Vol] 8.1 g/dL [facility] LIVER PANELon 11-29-2023 Albumin [Mass/Vol] 4.6 g/dL Normal 3.5-5.0 [facility] ALP [Catalytic activity/Vol] 56 U/L Normal 38-126 [facility] ALT [Catalytic activity/Vol] 15 U/L Normal <35 [facility] AST [Catalytic activity/Vol] 26 U/L Normal 14-36 [facility] Bilirubin [Mass/Vol] 0.5 mg/dL Normal 0.2-1.3 [facility] Bilirubin.indirect [Mass/Vol] 0.2 mg/dL Normal 0-0.4 [facility] Protein [Mass/Vol] 8.1 g/dL Normal 6.3-8.2 [facility] Chlamydia/GC,DNA Ampon 08-23 Chlamydia Probe Negative Normal NEG [facility] Comment on above: Result Comment: CHLA [...] target. Performed By: #### S W[facility]P #### [address] [id number] Health Plan Advisor: Isak Guerrero MD Gonorrhea Probe Negative Normal NEG [facility] Comment on above: Result Comment: NEIS [...] target. Performed By: #### S [facility] #### [address] [id number] Health Plan Advisor: Isak Guerrero MD Trichomonas/Wet Prepon 08-20 Trichomonas/Wet Prep Specimen Descriptio n .VAGINAL SPECIMEN Direct Exam NO YEAST OBSERVED NO TRICHOMONAS SEEN CLUE CELLS SEEN Report Status FINAL 08/20/2022 Normal [facility] Comment on above: Performed By: #### W P #### [facility] [address] [place] [address] Health Plan Advisor: Harshal Austin MD Wet prep, genitalon 08-20-19 Interpretation and review of laboratory results Abnormal [facility] Microorganism or agent identified Nom (Unsp spec) NO YEAST OBSERVED [facility] Microorganism or agent identified Nom (Unsp spec) NO TRICHOMONAS SEEN [facility] Microorganism or agent identified Nom (Unsp spec) CLUE CELLS SEEN Abnormal [facility] Specimen Description .VAGINAL SPECIMEN [facility] POCT ALERE DRUG SCREENon Amphetamine (AMP), poct Negative [facility] Barbiturates (BAR), poct Negative [facility] Buprenorphine Glucuronide (BUPG),poct Positive [facility] COCAINE (NADIRA), POCT Negative [facility] Ecstasy (MDMA), poct [facility] Interpretation and review of laboratory results Normal [facility] Marijuana (THC), poct Negative [facility] Comment on above: temp was 90. Methadone (MTD), poct Negative [facility] Methamphetamine (mAMP/MET), poct Negative [facility] Nortripyline (TCA), poct Negative [facility] Opiate (OPI), poct Negative [facility] OXAZEPAM (BZO),POCT Negative [facility] Oxycodone (OXY), poct Negative [facility] Phencyclidine (PCP), poct Negative [facility] Propoxyphene (PPX), poct Negative [facility] Urine was not witnes sed. All controls were present. [facility] Snf Documentson 03-18-2022 Snf Documents [id number]:127 Normal [facility] POCT ALERE DRUG SCREENon Amphetamine (AMP), poct Negative [facility] Barbiturates (BAR), poct Negative [facility] Buprenorphine Glucuronide (BUPG),poct Positive [facility] COCAINE (NADIRA), POCT Negative [facility] Ecstasy (MDMA), poct Negative [facility] Interpretation and review of laboratory results Normal [facility] Marijuana (THC), poct Negative [facility] Comment on above: Temp 90 urine was no t witnessed Methadone (MTD), poct Negative [facility] Methamphetamine (mAMP/MET), poct Negative [facility] Nortripyline (TCA), poct Negative [facility] Opiate (OPI), poct Negative [facility] OXAZEPAM (BZO),POCT Negative [facility] Oxycodone (OXY), poct Negative [facility] Phencyclidine (PCP), poct Negative [facility] Propoxyphene (PPX), poct Negative [facility] All internal control s were present [facility] POCT ALERE DRUG SCREENon Amphetamine (AMP), poct Negative [facility] Barbiturates (BAR), poct Negative [facility] Buprenorphine Glucuronide (BUPG),poct Positive [facility] COCAINE (NADIRA), POCT Negative [facility] Ecstasy (MDMA), poct Negative [facility] Interpretation and review of laboratory results Normal [facility] Marijuana (THC), poct Negative [facility] Comment on above: Temp 90 urine was no t witnessed Methadone (MTD), poct Negative [facility] Methamphetamine (mAMP/MET), poct Negative [facility] Nortripyline (TCA), poct Negative [facility] Opiate (OPI), poct Negative [facility] OXAZEPAM (BZO),POCT Negative [facility] Oxycodone (OXY), poct Negative [facility] Phencyclidine (PCP), poct Negative [facility] Propoxyphene (PPX), poct Negative [facility] All internal control s were present [facility] POCT ALERE DRUG SCREENon Amphetamine (AMP), poct Negative [facility] Barbiturates (BAR), poct Negative [facility] Buprenorphine Glucuronide (BUPG),poct Positive [facility] COCAINE (NADIRA), POCT Negative [facility] Ecstasy (MDMA), poct Negative [facility] Interpretation and review of laboratory results Normal [facility] Marijuana (THC), poct Negative [facility] Comment on above: temp 90 urine was no t witnessed Methadone (MTD), poct Negative [facility] Methamphetamine (mAMP/MET), poct Negative [facility] Nortripyline (TCA), poct Negative [facility] Opiate (OPI), poct Negative [facility] OXAZEPAM (BZO),POCT Negative [facility] Oxycodone (OXY), poct Negative [facility] Phencyclidine (PCP), poct Negative [facility] Propoxyphene (PPX), poct Negative [facility] All internal control s were present [facility] POCT ALERE DRUG SCREENon Amphetamine (AMP), poct Negative [facility] Barbiturates (BAR), poct Negative [facility] Buprenorphine Glucuronide (BUPG),poct Positive [facility] COCAINE (NADIRA), POCT Negative [facility] Ecstasy (MDMA), poct Negative [facility] Interpretation and review of laboratory results Normal [facility] Marijuana (THC), poct Negative [facility] Comment on above: temperature is 90, c ollection was not witnessed Methadone (MTD), poct Negative [facility] Methamphetamine (mAMP/MET), poct Negative [facility] Nortripyline (TCA), poct Negative [facility] Opiate (OPI), poct Negative [facility] OXAZEPAM (BZO),POCT Negative [facility] Oxycodone (OXY), poct Negative [facility] Phencyclidine (PCP), poct Negative [facility] Propoxyphene (PPX), poct Negative [facility] All internal control s are positive [facility] POCT ALERE DRUG SCREENon Amphetamine (AMP), poct Negative [facility] Barbiturates (BAR), poct Negative [facility] Buprenorphine Glucuronide (BUPG),poct Positive [facility] COCAINE (NADIRA), POCT Negative [facility] Ecstasy (MDMA), poct Negative [facility] Interpretation and review of laboratory results Normal [facility] Marijuana (THC), poct Negative [facility] Comment on above: temp 92 urine was no t witnessed Methadone (MTD), poct Negative [facility] Methamphetamine (mAMP/MET), poct Negative [facility] Nortripyline (TCA), poct Negative [facility] Opiate (OPI), poct Negative [facility] OXAZEPAM (BZO),POCT Negative [facility] Oxycodone (OXY), poct Negative [facility] Phencyclidine (PCP), poct Negative [facility] Propoxyphene (PPX), poct Negative [facility] All internal control s were present [facility] Surgical Pathologyon 022 Surgical Pathology (NOTE) -- Diagnosis -- Placenta, third trimester: - Umbilical cord and membranes, free of inflammation. - Plate, no histologic abnormality. Bryan Quevedo M.D. Electronically Signed Out rdd10/28/2021 Clinical Information [facility] Source of Specimen A: [...] SURGICAL PATHOLOGY CONSULTATION Patient Name: CHRISTINE SALCIDO [facility] Rec: [id number] Path Number: [id number] [employer] CONSULTING PATHOLOGISTS [facility] EMERGENCY DEPARTMENT ANATOMIC PATHOLOGY [address] [place] [id number] [facility] Comment on above: Performed By: #### P PPVS #### [employer] [address] [place] [address] Health Plan Advisor: Isak Guerrero MD CBC with Diffon 10-26-2021 Abs. Basophil 0.04 k/uL Normal 0.00-0.20 [facility] Comment on above: Performed By: #### C DP #### [facility] [address] [place], [place] [id number] Health Plan Advisor: Harshal Austin MD Abs.Imm.Granulocyte 0.08 k/uL Normal 0.00-0.30 [facility] Comment on above: Performed By: #### C DP #### [facility] [address] [place], [place] [id number] Health Plan Advisor: Harshal Austin MD Abs.Neutrophil (Seg) 4.94 k/uL Normal 1.50-8.10 [facility] Comment on above: Performed By: #### C DP #### [facility] [address] [place], [facility] Health Plan Advisor: Harshal Austin MD Basophils/100 WBC (Bld) 1 % Normal 0-2 [facility] Comment on above: Performed By: #### C DP #### [address] [place], [place] [id number] Health Plan Advisor: Harshal Austin MD Eosinophils (Bld) [#/Vol] 0.03 10*3/uL Normal 0.00-0.44 [facility] Comment on above: Performed By: #### C DP #### [facility] [address] [place], [place] [id number] Health Plan Advisor: Harshal Austin MD Eosinophils/100 WBC (Bld) 0 % Low 1-4 [facility] Comment on above: Performed By: #### C DP #### [facility] [address] [place] [address] Health Plan Advisor: Harshal Austin MD Erythrocyte distribution width (RBC) [Ratio] 12.2 % Normal 11.8-14.4 [facility] Comment on above: Performed By: #### C DP #### [facility] [address] [place] [address] [place] [address] Health Plan Advisor: Harshal Austin MD Hematocrit (Bld) [Volume fraction] 32.3 % Low 36.3-47.1 [facility] Comment on above: Performed By: #### C DP #### [facility] [address] [place] [address] Dr[place], [facility] Health Plan Advisor: Harshal Austin MD Hemoglobin (Bld) [Mass/Vol] 10.7 g/dL Low 11.9-15.1 [facility] Comment on above: Performed By: #### C DP #### [address] [place], [facility] Health Plan Advisor: Harshal Austin MD Immature granulocytes/100 WBC (Bld) 1 % High 0 [facility] Comment on above: Performed By: #### C DP #### [facility] [address] [place] [address] Dr[place], [facility] Health Plan Advisor: Harshal Austin MD Lymphocytes (Bld) [#/Vol] 1.63 10*3/uL Normal 1.10-3.70 [facility] Comment on above: Performed By: #### C DP #### [facility] [address] [place] [address] [place] [id number] Health Plan Advisor: Harshal Austin MD Lymphocytes/100 WBC (Bld) 23 % Low 24-43 [facility] Comment on above: Performed By: #### C DP #### [facility] [address] [place] [address] [place] [address] Health Plan Advisor: Harshal Austin MD MCH (RBC) [Entitic mass] 29.2 pg Normal 25.2-33.5 [facility] Comment on above: Performed By: #### C DP #### [facility] [address] [place] [address] [place] [address] Health Plan Advisor: Harshal Austin MD MCHC (RBC) [Mass/Vol] 33.1 g/dL Normal 28.4-34.8 [facility] Comment on above: Performed By: #### C DP #### [facility] [address] [place] [address] Health Plan Advisor: Harshal Austin MD MCV (RBC) [Entitic vol] 88.0 fL Normal 82.6-102.9 [facility] Comment on above: Performed By: #### C DP #### [facility] [address] [place] [address] Health Plan Advisor: Harshal Austin MD Monocytes (Bld) [#/Vol] 0.40 10*3/uL Normal 0.10-1.20 [facility] Comment on above: Performed By: #### C DP #### [facility] [address] [place], [place] [phone] Health Plan Advisor: Harshal Austin MD Monocytes/100 WBC (Bld) 6 % Normal 3-12 [facility] Comment on above: Performed By: #### C DP #### [facility] [address] [place], [place] [phone] Health Plan Advisor: Harshal Austin MD Neutrophil (Seg) 69 % High 36-65 [facility] Comment on above: Performed By: #### C DP #### [facility] [address] [place], [place] [phone] Health Plan Advisor: Harshal Austin MD NRBC Automated 0.0 per 100 WBC Normal 0.0 [facility] Comment on above: Performed By: #### C DP #### [facility] [address] [place] [address] Health Plan Advisor: Harshal Austin MD Platelet mean volume (Bld) [Entitic vol] 11.6 fL Normal 8.1-13.5 [facility] Comment on above: Performed By: #### C DP #### [facility] [address] [place], [place] [phone] Health Plan Advisor: Harshal Austin MD Platelets (Bld) [#/Vol] 172 10*3/uL Normal 138-453 [facility] Comment on above: Performed By: #### C DP #### [facility] [address] [place], [place] 2244583 Health Plan Advisor: Harshal Austin MD RBC (Bld) [#/Vol] 3.67 10*6/uL Low 3.95-5.11 [facility] Comment on above: Performed By: #### C DP #### [facility] [address] [place], [place] [phone] Health Plan Advisor: Harshal Austin MD WBC (Bld) [#/Vol] 7.1 10*3/uL Normal 3.5-11.3 [facility] Comment on above: Performed By: #### C DP #### [facility] [address] [place], [place] [phone] Health Plan Advisor: Harshal Austin MD Drug Scr, Abuse, Uron 2021 Amphetamine(s),Ur Negative Normal NEG [facility] Comment on above: Performed By: #### C BC #### [facility] [address] [place], [facility] Health Plan Advisor: Harshal Austin MD Barbiturate(s),Ur Negative Normal NEG [facility] Comment on above: Performed By: #### C BC #### [facility] [address] [place], [place] [phone] Health Plan Advisor: Harshal Austin MD Benzodiazepine(s) Negative Normal NEG [facility] Comment on above: Performed By: #### C BC #### [facility] [address] [place] [address] Health Plan Advisor: Harshal Austin MD Buprenorphrine, Ur Positive Abnormal NEG [facility] Comment on above: Performed By: #### C BC #### [facility] [address] [place], [place] [phone] Health Plan Advisor: Harshal Austin MD Cannabinoid(s),Ur Negative Normal NEG [facility] Comment on above: Performed By: #### C BC #### [facility] [address] [place], [place] [phone] Health Plan Advisor: Harshal Austin MD Cocaine Metabolite Negative Normal [facility] Comment on above: Performed By: #### C BC #### [facility] [address] [place], [place] [phone] Health Plan Advisor: Harshal Austin MD Methadone Ql (U) Negative Normal [facility] Comment on above: Performed By: #### C BC #### [facility] [address] [place], [place] [phone] Health Plan Advisor: Harshal Austin MD Methamphetamine, Ur Negative Normal [facility] Comment on above: Performed By: #### C BC #### [facility] [address] [place] [address] [place] [address] Health Plan Advisor: Harshal Austin MD Opiate(s), Ur Negative Normal NEG [facility] Comment on above: Performed By: #### C BC #### [facility] [address] [place], [place] [phone] Health Plan Advisor: Harshal Austin MD Oxycodone, Urine Negative Normal [facility] Comment on above: Performed By: #### C BC #### [facility] [address] [place] [address] Health Plan Advisor: Harshal Austin MD Phencyclidine, Ur Negative Normal [facility] Comment on above: Performed By: #### C BC #### [facility] [address] [place] [address] Health Plan Advisor: Harshal Austin MD Propoxyphene,Urine Negative Normal NEG [facility] Comment on above: Performed By: #### C BC #### [facility] [address] [place] [address] [place] [address] Health Plan Advisor: Harshal Austin MD Tricyclic antidepressants Screen Ql (U) Negative Normal NEG [facility] Comment on above: Result Comment: Drug screen results are to be used for medical purposes only. All positive results are unconfirmed. Testing for employment or legal uses should be sent to a reference laboratory for confirmation. Performed By: #### C BC #### [address] [place] [address] Health Plan Advisor: Harshal Austin MD Type + Screenon 10-26-2021 Type + Screen Sample Expiration 10/29/2021,2359 Arm Band Number [id number] ABO/Rh(D) O POSITIVE Antibody Screen NEGATIVE Normal [facility] Comment on above: Performed By: #### T YS #### [facility] [address] [place] [address] [place] [address] Health Plan Advisor: Harshal Austin MD Cult,Urineon 10-17-2021 Cult,Urine Specimen Description .CLEAN CATCH URINE Culture NO GROWTH Report Status FINAL 10/17/2021 Normal [facility] Comment on above: Performed By: #### U RC #### [facility] [address] [place] [address] Health Plan Advisor: Isak Guerrero MD [facility] [address] [place] [address] Health Plan Advisor: Harshal Austin MD Microscopic Urinalysison - [facility] Bacteria, UA 1+ Abnormal None [facility] [employer] Epithelial Cells UA 5 TO 10 [facility] Interpretation and review of laboratory results Abnormal [facility] [employer] RBC, UA 0 TO 2 [facility] WBC, UA 0 TO 2 [facility] Urinalysison 10-15-2021 Bilirubin Urine Negative NEGATIVE [facility] [employer] Color, UA Yellow Yellow [facility] Glucose, Ur Negative NEGATIVE [facility] Interpretation and review of laboratory results Abnormal [facility] Ketones Ql (U) Negative NEGATIVE [facility] Leukocyte esterase Test strip Ql (U) LARGE Abnormal NEGATIVE [facility] Nitrite, Urine Negative NEGATIVE [facility] pH, UA 6.0 [facility] Protein, UA Negative NEGATIVE [facility] Specific [place], UA 1.025 [facility] Turbidity UA Cloudy Abnormal Clear [facility] Urine Hgb Negative NEGATIVE [facility] Urobilinogen, Urine Normal Normal [facility] Urinalysis, Routineon 2021 Bilirubin, SemiQt,Ur Negative Normal NEG [facility] Comment on above: Performed By: #### U A, UMICAO #### [facility] [address] [place] [address] [place] [address] Health Plan Advisor: Harshal Austin MD Blood, Urine Negative Normal NEG [facility] Comment on above: Performed By: #### U A, UMICAO #### [facility] [address] [place] [address] Dr[place], [facility] Health Plan Advisor: Harshal Austin MD Clarity (U) Cloudy Abnormal CLEAR [facility] Comment on above: Performed By: #### U A, UMICAO #### [address] [place] [phone] Health Plan Advisor: Harshal Austin MD Color (U) Yellow Normal YEL [facility] Comment on above: Performed By: #### U A, UMICAO #### [facility] [address] [place] [address] Dr[place], [facility] Health Plan Advisor: Harshal Austin MD Glucose Ql (U) Negative Normal NEG [facility] Comment on above: Performed By: #### U A, UMICAO #### [facility] [address] [place] [address] [place] [address] Health Plan Advisor: Harshal Austin MD Ketones Ql (U) Negative Normal NEG [facility] Comment on above: Performed By: #### U A, UMICAO #### [facility] [address] [place], [place] [phone] Health Plan Advisor: Harshal Austin MD Leukocyte esterase Test strip Ql (U) LARGE Abnormal NEG [facility] Comment on above: Performed By: #### U A, UMICAO #### [facility] [address] [place], [place] [phone] Health Plan Advisor: Harshal Austin MD Nitrite,Ur Negative Normal NEG [facility] Comment on above: Performed By: #### U A, UMICAO #### [facility] [address] [place], [place] 244[address]83 Health Plan Advisor: Harshal Austin MD PH,Ur 6.0 Normal 5.0-9.0 [facility] Comment on above: Performed By: #### U A, UMICAO #### [facility] [address] [place], [place] [phone] Health Plan Advisor: Harshal Austin MD Protein Ql (U) Negative Normal NEG [facility] Comment on above: Performed By: #### U A, UMICAO #### [address] [place], [place] [phone] Health Plan Advisor: Harshal Austin MD Spec. [place],Ur 1.025 High 1.010-1.020 [facility] Comment on above: Performed By: #### U A, UMICAO #### [facility] [address] [place], [place] [phone] Health Plan Advisor: Harshal Austin MD Urobilinogen,Ur Normal Normal NORM [facility] Comment on above: Performed By: #### U A, UMICAO #### [facility] [address] [place], [place] [address]83 Health Plan Advisor: Harshal Austin MD Urinalysis,Microon 2 ----- Normal [facility] Comment on above: Performed By: #### U A UMICAO #### [facility] [address] [place], [place] [phone] Health Plan Advisor: Harshal Austin MD Bacteria 1+ Abnormal NONE [facility] Comment on above: Performed By: #### U A, UMICAO #### [facility] [address] [place], [place] [phone] Health Plan Advisor: Harshal Austin MD Epithelial cells LM Ql (Urine sed) 5 TO 10 Normal 0-25 [facility] Comment on above: Performed By: #### U A, UMICAO #### [facility] [address] [place], [place] [phone] Health Plan Advisor: Harshal Austin MD Urine RBC's 0 TO 2 Normal 0-2 [facility] Comment on above: Performed By: #### U A, UMICAO #### [facility] [address] [place] [address] [place], [place] 3260583 Health Plan Advisor: Harshal Austin MD Urine WBC's 0 TO 2 Normal 0-5 [facility] Comment on above: Performed By: #### U A, UMICAO #### [facility] [address] [place] [address] [place], [place] [phone] Health Plan Advisor: Harshal Austin MD Rule Out Grp.B Strepon 10-08 Rule Out Grp.B Strep Specimen Descriptio n .VAGINA Culture NEGATIVE FOR GROUP B STREPTOCOCCI Report Status FINAL 10/08/2021 Normal [facility] Comment on above: Performed By: #### R OGBS #### [facility] [address] [place] [address] Health Plan Advisor: Isak Guerrero MD [facility] [address] [place] [address] Health Plan Advisor: Harshal Austin MD POCT ALERE DRUG SCREENon Amphetamine (AMP), poct Negative [facility] Barbiturates (BAR), poct Negative [facility] Buprenorphine Glucuronide (BUPG),poct Positive [facility] COCAINE (NADIRA), POCT Negative [facility] Ecstasy (MDMA), poct Negative [facility] Interpretation and review of laboratory results Normal [facility] Marijuana (THC), poct Negative [facility] Comment on above: temp 96 urine was no t witnessed Methadone (MTD), poct Negative [facility] Methamphetamine (mAMP/MET), poct Negative [facility] Nortripyline (TCA), poct Negative [facility] Opiate (OPI), poct Negative [facility] OXAZEPAM (BZO),POCT Negative [facility] Oxycodone (OXY), poct Negative [facility] Phencyclidine (PCP), poct Negative [facility] Propoxyphene (PPX), poct Negative [facility] All internal control s were present [facility] CBCon 08-25-2021 Erythrocyte distribution width (RBC) [Ratio] 12.1 % Normal 11.8-14.4 [facility] Comment on above: Performed By: #### C BC #### [address] [place] [address] Health Plan Advisor: Harshal Austin MD Hematocrit (Bld) [Volume fraction] 31.4 % Low 36.3-47.1 [facility] Comment on above: Performed By: #### C BC #### [address] [place] [address] Health Plan Advisor: Harshal Austin MD Hemoglobin (Bld) [Mass/Vol] 10.5 g/dL Low 11.9-15.1 [facility] Comment on above: Performed By: #### C BC #### [address] [place] [address] Health Plan Advisor: Harshal Austin MD MCH (RBC) [Entitic mass] 31.8 pg Normal 25.2-33.5 [facility] Comment on above: Performed By: #### C BC #### [facility] [address] [place], [place] [phone] Health Plan Advisor: Harshal Austin MD MCHC (RBC) [Mass/Vol] 33.4 g/dL Normal 28.4-34.8 [facility] Comment on above: Performed By: #### C BC #### [address] [place], [place] [phone] Health Plan Advisor: Harshal Austin MD MCV (RBC) [Entitic vol] 95.2 fL Normal 82.6-102.9 [facility] Comment on above: Performed By: #### C BC #### [address] [place], [place] [address]1283 Health Plan Advisor: Harshal Austin MD NRBC Automated 0.0 per 100 WBC Normal 0.0 [facility] Comment on above: Performed By: #### C BC #### [address] [place], [place] [phone] Health Plan Advisor: Harshal Austin MD Platelet mean volume (Bld) [Entitic vol] 11.3 fL Normal 8.1-13.5 [facility] Comment on above: Performed By: #### C BC #### [address] [place], [place] [phone] Health Plan Advisor: Harshal Austin MD Platelets (Bld) [#/Vol] 181 10*3/uL Normal 138-453 [facility] Comment on above: Performed By: #### C BC #### [address] [place], [place] 9911583 Health Plan Advisor: Harshal Austin MD RBC (Bld) [#/Vol] 3.30 10*6/uL Low 3.95-5.11 [facility] Comment on above: Performed By: #### C BC #### [address] [place], [place] 1388183 Health Plan Advisor: Harshal Austin MD WBC (Bld) [#/Vol] 8.2 10*3/uL Normal 3.5-11.3 [facility] Comment on above: Performed By: #### C BC #### [facility] [address] [place] [address] Health Plan Advisor: Harshal Austin MD [id number] 07-21-2021 SARS-CoV-2 (COVID-19) RNA MARIA FERNANDA+probe Ql (Unsp spec) Detected Abnormal [facility] Comment on above: Result Comment: Rapid [...] this assay. Fact sheet for Healthcare Providers: https://www.fda.gov/media/171632/download Fact sheet for Patients: https://www.fda.gov/media/773212/download Methodology: Isothermal Nucleic Acid Amplification Results reported to the appropriate Health Department Performed By: #### C OVRB #### [facility] [address] [place] [address] Health Plan Advisor: Harshal Austin MD [id number] 07-17-2021 SARS-CoV-2 (COVID-19) RNA MARIA FERNANDA+probe Ql (Unsp spec) Not detected Normal [facility] Comment on above: Result Comment: Rapid [...] management decisions. Fact sheet for Healthcare Providers: https://www.fda.gov/media/372369/download Fact sheet for Patients: https://www.fda.gov/media/599382/download Methodology: Isothermal Nucleic Acid Amplification Performed By: #### B HCG #### [facility] [address] [place], [place] 1870[address] Health Plan Advisor: Harshal Austin MD Cult,Urineon 06-18-2021 Cult,Urine Specimen Description .URINE Special Requests NOT REPORTED Culture NO SIGNIFICANT GROWTH Report Status FINAL 06/18/2021 Normal [facility] Comment on above: Performed By: #### B HCG #### [facility] [address] [place] [address] Health Plan Advisor: Harshal Austin MD POCT ALERE DRUG SCREENon Amphetamine (AMP), poct Negative [facility] Barbiturates (BAR), poct Negative [facility] Buprenorphine Glucuronide (BUPG),poct Positive [facility] COCAINE (NADIRA), POCT Negative [facility] Ecstasy (MDMA), poct [facility] Interpretation and review of laboratory results Normal [facility] Marijuana (THC), poct Negative [facility] Comment on above: temperature is 92, c ollection was not witnessed Methadone (MTD), poct Negative [facility] Methamphetamine (mAMP/MET), poct Negative [facility] Nortripyline (TCA), poct Negative [facility] Opiate (OPI), poct Negative [facility] OXAZEPAM (BZO),POCT Negative [facility] Oxycodone (OXY), poct Negative [facility] Phencyclidine (PCP), poct Negative [facility] Propoxyphene (PPX), poct Negative [facility] All internal control s are positive [facility] CBC Auto Differentialon 0 Absolute Eos # 0.00 [facility] Absolute Immature Granulocyte NOT REPORTED [facility] Absolute Lymph # 1.60 [facility] Absolute Hart # 0.30 [facility] Basophils (Bld) [#/Vol] 0.00 10*3/uL [facility] Basophils/100 WBC (Bld) 1 % 0 - 2 % [facility] Differential Type YES [facility] Eosinophils/100 WBC (Bld) 1 % 0 - 5 % [facility] Hematocrit (Bld) [Volume fraction] 33.4 % Low 36 - 46 % [facility] Hemoglobin.gastrointes tinal spec 1 Ql (Stl) 11.6 g/dL Low 12.0 - 16.0 g/dL [facility] Immature Granulocytes NOT REPORTED 0 % M [facility] Interpretation and review of laboratory results Abnormal [facility] Lymphocytes/100 WBC (Bld) 21 % 15 - 40 % [facility] MCH (RBC) [Entitic mass] 31.6 pg 26 - 34 pg [facility] MCHC (RBC) [Mass/Vol] 34.8 g/dL 31 - 37 g/dL [facility] MCV (RBC) [Entitic vol] 91.0 fL 80 - 100 fL [facility] Monocytes/100 WBC (Bld) 4 % 4 - 8 % [facility] NRBC Automated NOT REPORTED per 100 WBC [facility] Platelet distribution width (Bld) [Ratio] 12.7 % 12.1 - 15.2 % [facility] Platelet Estimate NOT REPORTED [facility] Platelet mean volume (Bld) [Entitic vol] NOT REPORTED 6.0 - 12.0 fL [facility] Platelets (Bld) [#/Vol] 181 10*3/uL [facility] RBC (Bld) [#/Vol] 3.67 10*6/uL Low 4.0 - 5.2 m/uL [facility] RBC (Bld) [#/Vol] NOT REPORTED [facility] Segmented neutrophils/100 WBC (Bld) 73 % 47 - 75 % [facility] Segs Absolute 5.90 [facility] WBC (Bld) [#/Vol] 7.9 10*3/uL [facility] WBC (Bld) [#/Vol] NOT REPORTED [facility] CBC with Diffon 05-24-2021 Abs. Basophil 0.00 k/uL Normal 0.0-0.2 [facility] Comment on above: Performed By: #### C DP #### [facility] [address] [id number] Health Plan Advisor: Harshal Austin MD Abs.Neutrophil (Seg) 5.90 k/uL Normal 2.5-7.0 [facility] Comment on above: Performed By: #### C DP #### [facility] [address] [phone] Health Plan Advisor: Harshal Austin MD Auto Diff Performed YES Normal [facility] Comment on above: Performed By: #### C DP #### [facility] [address] [phone] Health Plan Advisor: Harshal Austin MD Basophils/100 WBC (Bld) 1 % Normal 0-2 [facility] Comment on above: Performed By: #### C DP #### [facility] [address] [phone] Health Plan Advisor: Harshal Austin MD Eosinophils (Bld) [#/Vol] 0.00 10*3/uL Normal 0.0-0.4 [facility] Comment on above: Performed By: #### C DP #### [facility] [address] [phone] Health Plan Advisor: Harshal Austin MD Eosinophils/100 WBC (Bld) 1 % Normal 0-5 [facility] Comment on above: Performed By: #### C DP #### [facility] [address] [phone] Health Plan Advisor: Harshal Austin MD Erythrocyte distribution width (RBC) [Ratio] 12.7 % Normal 12.1-15.2 [facility] Comment on above: Performed By: #### C DP #### [facility] [address] [phone] Health Plan Advisor: Harshal Austin MD Hematocrit (Bld) [Volume fraction] 33.4 % Low 36-46 [facility] Comment on above: Performed By: #### C DP #### [facility] [address] [place], [place] [phone] Health Plan Advisor: Harshal Austin MD Hemoglobin (Bld) [Mass/Vol] 11.6 g/dL Low 12.0-16.0 [facility] Comment on above: Performed By: #### C DP #### [facility] [address] [place], [place] [phone] Health Plan Advisor: Harshal Austin MD Lymphocytes (Bld) [#/Vol] 1.60 10*3/uL Normal 1.0-4.8 [facility] Comment on above: Performed By: #### C DP #### [facility] [address] [phone] Health Plan Advisor: Harshal Austin MD Lymphocytes/100 WBC (Bld) 21 % Normal 15-40 [facility] Comment on above: Performed By: #### C DP #### [facility] [address] [place] [address] Health Plan Advisor: Harshal Austin MD MCH (RBC) [Entitic mass] 31.6 pg Normal 26-34 [facility] Comment on above: Performed By: #### C DP #### [facility] [address] [place] [address] Health Plan Advisor: Harshal Austin MD MCHC (RBC) [Mass/Vol] 34.8 g/dL Normal 31-37 [facility] Comment on above: Performed By: #### C DP #### [facility] [address] [place] [address] Health Plan Advisor: Harshal Austin MD MCV (RBC) [Entitic vol] 91.0 fL Normal 80-100 [facility] Comment on above: Performed By: #### C DP #### [facility] [address] [place], [place] [phone] Health Plan Advisor: Harshal Austin MD Monocytes (Bld) [#/Vol] 0.30 10*3/uL Normal 0.0-1.0 [facility] Comment on above: Performed By: #### C DP #### [facility] [address] [place], [place] [phone] Health Plan Advisor: Harshal Austin MD Monocytes/100 WBC (Bld) 4 % Normal 4-8 [facility] Comment on above: Performed By: #### C DP #### [facility] [address] [place], [place] [phone] Health Plan Advisor: Harshal Austin MD Neutrophil (Seg) 73 % Normal 47-75 [facility] Comment on above: Performed By: #### C DP #### [facility] [address] [place], [place] [phone] Health Plan Advisor: Harshal Austin MD Platelets (Bld) [#/Vol] 181 10*3/uL Normal 140-450 [facility] Comment on above: Performed By: #### C DP #### [facility] [address] [place], [place] [phone] Health Plan Advisor: Harshal Austin MD RBC (Bld) [#/Vol] 3.67 10*6/uL Low 4.0-5.2 [facility] Comment on above: Performed By: #### C DP #### [facility] [address] [place], [place] [phone] Health Plan Advisor: Harshal Austin MD WBC (Bld) [#/Vol] 7.9 10*3/uL Normal 3.5-11.0 [facility] Comment on above: Performed By: #### C DP #### [facility] [address] [place] [address] Health Plan Advisor: Harshal Austin MD Abs.Imm.Granulocyte NOT REPORTED Normal 0.00-0.30 [facility] Comment on above: Performed By: #### C DP #### [facility] [address] [place], [place] [phone] Health Plan Advisor: Harshal Austin MD Immature Granulocyte NOT REPORTED Normal 0 [facility] Comment on above: Performed By: #### C DP #### [facility] [address] [place], [place] [phone] Health Plan Advisor: Harshal Austin MD MPV NOT REPORTED Normal 6.0-12.0 [facility] Comment on above: Performed By: #### C DP #### [facility] [address] [place] [address] Health Plan Advisor: Harshal Austin MD NRBC Automated NOT REPORTED Normal [facility] Comment on above: Performed By: #### C DP #### [facility] [address] [place] [address] Health Plan Advisor: Harshal Austin MD Platelet Comment NOT REPORTED Normal [facility] Comment on above: Performed By: #### C DP #### [facility] [address] [place], [place] [phone] Health Plan Advisor: Harshal Austin MD RBC morphology finding Nom (Bld) NOT REPORTED Normal [facility] Comment on above: Performed By: #### C DP #### [facility] [address] [place] [address] Health Plan Advisor: Harshal Austin MD WBC Morphology NOT REPORTED Normal [facility] Comment on above: Performed By: #### C DP #### [facility] [address] [place] [address] Health Plan Advisor: Harshal Austin MD Microscopic Urinalysison - [facility] Amorphous, UA NOT REPORTED None [facility] Bacteria, UA 3+ Abnormal None [facility] Casts UA NOT REPORTED /LPF [facility] Crystals, UA NOT REPORTED None /HPF [facility] Epithelial Cells UA 10 TO 20 /HPF [facility] Interpretation and review of laboratory results Abnormal [facility] Mucus, UA NOT REPORTED None [facility] Other Observations UA NOT REPORTED NOT REQ. M [facility] RBC, UA NOT REPORTED [facility] Renal Epithelial, UA NOT REPORTED 0 /HPF Me [facility] Trichomonas, UA NOT REPORTED None [facility] WBC, UA 2 TO 5 0 /HPF [facility] Yeast, UA NOT REPORTED None [facility] TYPE AND SCREENon 1 07-24-2020 ABO/Rh Positive [facility] Type + Scrnon 05-24 Type + Scrn Negative Normal [facility] Comment on above: Performed By: #### B HCG #### [facility] [address] [place] [address] Health Plan Advisor: Harshal Austin MD Urinalysison 05-24-2021 Bilirubin Urine Negative NEGATIVE [facility] Color, UA Yellow Yellow [facility] Glucose, Ur Negative NEGATIVE [facility] Interpretation and review of laboratory results Abnormal [facility] Ketones Ql (U) Negative NEGATIVE [facility] Leukocyte esterase Test strip Ql (U) 2+ Abnormal NEGATIVE [facility] Nitrite, Urine Negative NEGATIVE [facility] pH, UA 6.5 [facility] Protein, UA Negative NEGATIVE [facility] Specific [place], UA 1.015 [facility] Turbidity UA Hazy Abnormal Clear [facility] Urinalysis Comments [facility] Urine Hgb Negative NEGATIVE [facility] Urobilinogen, Urine Normal Normal [facility] Urinalysis, Routineon 2020 Bilirubin, SemiQt,Ur Negative Normal NEG [facility] Comment on above: Performed By: #### U MICAO, UA #### [facility] [address] [place] [address] Health Plan Advisor: Harshal Austin MD Blood, Urine Negative Normal NEG [facility] Comment on above: Performed By: #### U MICAO, UA #### [facility] [address] [place], [place] [phone] Health Plan Advisor: Harshal Austin MD Clarity (U) Hazy Abnormal CLEAR [facility] Comment on above: Performed By: #### U MICAO, UA #### [facility] [address] [facility] [place] [address] Health Plan Advisor: Harshal Austin MD Color (U) Yellow Normal YEL [facility] Comment on above: Performed By: #### U MICAO, UA #### [facility] [address] [facility] [place] [address] Health Plan Advisor: Harshal Austin MD Comment Normal [facility] Comment on above: Performed By: #### U MICAO, UA #### [facility] [address] [place], [place] [phone] Health Plan Advisor: Harshal Austin MD Glucose Ql (U) Negative Normal NEG [facility] Comment on above: Performed By: #### U MICAO, UA #### [facility] [address] [facility] [place] [address] Health Plan Advisor: Harshal Austin MD Ketones Ql (U) Negative Normal NEG [facility] Comment on above: Performed By: #### U MICAO, UA #### [facility] [address] [facility] [place] [address] Health Plan Advisor: Harshal Austin MD Leukocyte esterase Test strip Ql (U) 2+ Abnormal NEG [facility] Comment on above: Performed By: #### U MICAO, UA #### [facility] [address] [facility] [place] [phone] Health Plan Advisor: Harshal Austin MD Nitrite,Ur Negative Normal NEG [facility] Comment on above: Performed By: #### U MICAO, UA #### [facility] [address] [facility] [place] [address] Health Plan Advisor: Harshal Austin MD PH,Ur 6.5 Normal 5.0-8.0 [facility] Comment on above: Performed By: #### U MICAO, UA #### [facility] [address] [place] [address] Health Plan Advisor: Harshal Austin MD Protein Ql (U) Negative Normal NEG [facility] Comment on above: Performed By: #### U MICAO, UA #### [facility] [address] [place] [address] Health Plan Advisor: Harshal Austin MD Spec. [place],Ur 1.015 Normal 1.005-1.030 [facility] Comment on above: Performed By: #### U MICAO, UA #### [facility] [address] [place] [address] Health Plan Advisor: Harshal Austin MD Urobilinogen,Ur Normal Normal NORM [facility] Comment on above: Performed By: #### U MICAO, UA #### [facility] [address] [place] [address] Health Plan Advisor: Harshal Austin MD Urinalysis,Microon 1 ----- Normal [facility] Comment on above: Performed By: #### U MICAO, UA #### [facility] [address] [place] [address] Health Plan Advisor: Harshal Austin MD Bacteria 3+ Abnormal NONE [facility] Comment on above: Performed By: #### U MICAO, UA #### [facility] [address] [place] [address] Health Plan Advisor: Harshal Austin MD Epithelial cells LM Ql (Urine sed) 10 TO 20 Normal [facility] Comment on above: Performed By: #### U MICAO, UA #### [facility] [address] [place] [address] Health Plan Advisor: Harshal Austin MD Urine WBC's 2 TO 5 Normal 0 [facility] Comment on above: Performed By: #### U MANFREDO, UA #### [facility] [address] [place] [address] Health Plan Advisor: Harshal Austin MD Amorphous sediment LM Ql (Urine sed) NOT REPORTED Normal NONE [facility] Comment on above: Performed By: #### U MANFREDO, UA #### [facility] [address] [place] [address] Health Plan Advisor: Harshal Austin MD Casts NOT REPORTED Normal [facility] Comment on above: Performed By: #### U ZAINA, UA #### [facility] [address] [place], [place] 6459790 Health Plan Advisor: Harshal Austin MD Crystals LM Nom (Urine sed) NOT REPORTED Normal NONE [facility] Comment on above: Performed By: #### U ZAINA, UA #### [facility] [address] [place], [place] [phone] Health Plan Advisor: Harshal Austin MD Epithelial, Renal NOT REPORTED Normal 0 [facility] Comment on above: Performed By: #### U ZAINA, UA #### [facility] [address] [place], [place] 7652490 Health Plan Advisor: Harshal Austin MD Mucus Strands NOT REPORTED Normal [facility] Comment on above: Performed By: #### U ZAINA, UA #### [facility] [address] [place], [place] 0272690 Health Plan Advisor: Harshal Austin MD Other Observations NOT REPORTED Normal NREQ [facility] Comment on above: Performed By: #### U MANFREDO, UA #### [facility] [address] [place], [place] 3750590 Health Plan Advisor: Harshal Austin MD Trichomonas NOT REPORTED Normal NONE [facility] Comment on above: Performed By: #### U ZAINA, UA #### [facility] [address] [place], [place] [id number] Health Plan Advisor: Harshal Austin MD Urine RBC's NOT REPORTED Normal 0-2 [facility] Comment on above: Performed By: #### U MICAO, UA #### [facility] [address] [place], [place] [phone] Health Plan Advisor: Harshal Austin MD Yeast NOT REPORTED Normal NONE [facility] Comment on above: Performed By: #### U MICAO, UA #### [facility] [address] [place], [place] 7231690 Health Plan Advisor: Harshal Austin MD Cult,Urineon 04-09-2021 Cult,Urine Specimen Description .URINE, MIDSTREAM Special Requests NOT REPORTED Culture NO GROWTH Report Status FINAL 04/09/2021 Normal [facility] Comment on above: Performed By: #### B HCG #### [facility] [address] [place], [place] 1876[address] Health Plan Advisor: Harshal Austin MD HCG, Quanton 04-08-2021 HCG, Quant 60290 IU/L High <5 [facility] Comment on above: Result Comment: Non-preg premeno <=5 Postmeno <=8 Male <=3 If HCG results do not concur with clinical observations, additional testing to confirm results is recommended. Elevated results not associated with may be found in patients with other diseases such as tumors of the germ cells (testis, ovaries, etc.), bladder, pancreas, stomach, lungs, and liver. Performed By: #### B HCG #### [facility] [address] [place], [place] [phone] Health Plan Advisor: Harshal Austin MD Urinalysis w/ Microon 2020 ----- Normal [facility] Comment on above: Performed By: #### B HCG #### [facility] [address] [place], [place] 4297290 Health Plan Advisor: Harshal Austin MD Bilirubin, SemiQt,Ur Negative Normal NEG [facility] Comment on above: Performed By: #### B HCG #### [facility] [address] [place], [place] 9694490 Health Plan Advisor: Harshal Austin MD Blood, Urine Negative Normal NEG [facility] Comment on above: Performed By: #### B HCG #### [facility] [address] [place], [place] [id number] Health Plan Advisor: Harshal Austin MD Clarity (U) CLEAR Normal CLEAR [facility] Comment on above: Performed By: #### B HCG #### [facility] [address] [place], [place] 0339190 Health Plan Advisor: Harshal Austin MD Color (U) YELLOW Normal YEL [facility] Comment on above: Performed By: #### B HCG #### [facility] [address] [place] [address] Health Plan Advisor: Harshal Austin MD Comment Normal [facility] Comment on above: Performed By: #### B HCG #### [facility] [address] [place] [address] Health Plan Advisor: Harshal Austin MD Glucose Ql (U) Negative Normal NEG [facility] Comment on above: Performed By: #### B HCG #### [facility] [address] [place], [place] 7165490 Health Plan Advisor: Harshal Austin MD Ketones Ql (U) Negative Normal NEG [facility] Comment on above: Performed By: #### B HCG #### [facility] [address] [place] [address] Health Plan Advisor: Harshal Austin MD Leukocyte esterase Test strip Ql (U) 3+ Abnormal NEG [facility] Comment on above: Performed By: #### B HCG #### [facility] [address] [place] [address] Health Plan Advisor: Harshal Austin MD Nitrite,Ur Negative Normal NEG [facility] Comment on above: Performed By: #### B HCG #### [facility] [address] [place], [place] 4648[address] Health Plan Advisor: Harshal Austin MD PH,Ur 6.5 Normal 5.0-8.0 [facility] Comment on above: Performed By: #### B HCG #### [facility] [address] [place], [place] 6910090 Health Plan Advisor: Harshal Austin MD Protein Ql (U) 1+ Abnormal NEG [facility] Comment on above: Performed By: #### B HCG #### [facility] [address] [place] [address] Health Plan Advisor: Harshal Austin MD Spec. [place],Ur 1.015 Normal 1.005-1.030 [facility] Comment on above: Performed By: #### B HCG #### [facility] [address] [place], [place] [phone] Health Plan Advisor: Harshal Austin MD Urine RBC's 2 TO 5 Normal 0-2 [facility] Comment on above: Performed By: #### B HCG #### [facility] [address] [place], [place] 1001090 Health Plan Advisor: Harshal Austin MD Urine WBC's 10 TO 20 Normal 0 [facility] Comment on above: Performed By: #### B HCG #### [facility] [address] [place], [place] 6777390 Health Plan Advisor: Harshal Austin MD Urobilinogen,Ur Normal Normal NORM [facility] Comment on above: Performed By: #### B HCG #### [facility] [address] [place], [place] [phone] Health Plan Advisor: Harshal Austin MD Amorphous sediment LM Ql (Urine sed) NOT REPORTED Normal NONE [facility] Comment on above: Performed By: #### B HCG #### [facility] [address] [place], [place] [phone] Health Plan Advisor: Harshal Austin MD Bacteria NOT REPORTED Normal NONE [facility] Comment on above: Performed By: #### B HCG #### [facility] [address] [place], [place] 3132490 Health Plan Advisor: Harshal Austin MD Casts NOT REPORTED Normal [facility] Comment on above: Performed By: #### B HCG #### [facility] [address] [place] [address] Health Plan Advisor: Harshal Austin MD Crystals LM Nom (Urine sed) NOT REPORTED Normal NONE [facility] Comment on above: Performed By: #### B HCG #### [facility] [address] [place] [address] Health Plan Advisor: Harshal Austin MD Epithelial cells LM Ql (Urine sed) NOT REPORTED Normal [facility] Comment on above: Performed By: #### B HCG #### [facility] [address] [place] [address] Health Plan Advisor: Harshal Austin MD Epithelial, Renal NOT REPORTED Normal 0 [facility] Comment on above: Performed By: #### B HCG #### [facility] [address] [place] [address] Health Plan Advisor: Harshal Austin MD Mucus Strands NOT REPORTED Normal [facility] Comment on above: Performed By: #### B HCG #### [facility] [address] [place] [address] Health Plan Advisor: Harshal Austin MD Other Observations NOT REPORTED Normal NREQ [facility] Comment on above: Performed By: #### B HCG #### [facility] [address] [place] [address] Health Plan Advisor: Harshal Austin MD Trichomonas NOT REPORTED Normal NONE [facility] Comment on above: Performed By: #### B HCG #### [facility] [address] [place] [address] Health Plan Advisor: Harshal Austin MD Yeast NOT REPORTED Normal NONE [facility] Comment on above: Performed By: #### B HCG #### [facility] [address] [place] [address] Health Plan Advisor: Harshal Austin MD Urinalysis with MicroscopicO rdered By: Juan Richards on 04-08-2021 - [employer] Phone: Amorphous, UA NOT REPORTED None [facility] Phone: Bacteria, UA NOT REPORTED None [facility] Phone: Bilirubin Urine Negative NEGATIVE [facility] Phone: [phone] Casts UA NOT REPORTED /LPF [facility] Center[facility] Work Phone: Color, UA YELLOW YELLOW [facility] Phone: Crystals, UA NOT REPORTED None /HPF [facility] Work Phone: Epithelial Cells UA NOT REPORTED /HPF [facility] [employer] Work Phone: Glucose, Ur Negative NEGATIVE [facility] Phone: Interpretation and review of laboratory results Abnormal [facility] Phone: Ketones Ql (U) Negative NEGATIVE [facility] Phone: Leukocyte esterase Test strip Ql (U) 3+ Abnormal NEGATIVE [facility] Phone: Mucus, UA NOT REPORTED None [facility] Phone: Nitrite, Urine Negative NEGATIVE [facility] Phone: [phone] Other Observations UA NOT REPORTED NOT REQ. M [facility] Work Phone: pH, UA 6.5 [employer] Phone: Protein, UA 1+ Abnormal NEGATIVE [employer] Phone: RBC, UA 2 TO 5 [employer] Phone: Renal Epithelial, UA NOT REPORTED 0 /HPF Me [employer] Work Phone: Specific [place], UA 1.015 [employer] Phone: Trichomonas, UA NOT REPORTED None [employer] Phone: Turbidity UA CLEAR CLEAR [employer] Phone: Urinalysis Comments [employer] Phone: Urine Hgb Negative NEGATIVE [employer] Phone: Urobilinogen, Urine Normal Normal [employer] Phone: WBC, UA 10 TO 20 0 /HPF [employer] Phone: Yeast, UA NOT REPORTED None [employer] Phone: [employer] Phone: hCG, quantitative, Ordered By: Juan Richards on 04-08-2021 hCG Quant [id number] High <5 IU/L [employer] Phone: Comment on above: Non-preg premeno <=5 Postmeno <=8 Male <=3 If HCG results do not concur with clinical observations, additional testing to confirm results is recommended. Elevated results not associated with may be found in patients with other diseases such as tumors of the germ cells (testis, ovaries, etc.), bladder, pancreas, stomach, lungs, and liver. Interpretation and review of laboratory results Abnormal [employer] Phone: [employer] Phone: COVID-19, MOLECULARon 2020 SARS-CoV-2 (COVID-19) Ab IA Ql Not detected Normal Not Detected [facility] Comment on above: Result Comment: [...] at the following links: For Healthcare Providers: https://www.fda.gov/media/189984/download For Patients: https://www.fda.gov/media/757385/download COVID-19, Molecularon 2020 SARS-CoV-2 (COVID-19) RdRp gene MARIA FERNANDA+probe Ql (Resp) Not detected Not Detected [facility] Comment on above: This test was perfor [...] at the following links: For Healthcare Providers: https://www.fda.gov/media/375370/download For Patients: https://www.fda.gov/media/312422/download SARS-CoV-2 (COVID-19) RdRp g mathew MARIA FERNANDA+probe Ql (Resp)on 03-25-2021 Interpretation and review of laboratory results Normal [facility] Cult,Urineon 03-12-2021 Cult,Urine Specimen Description .CLEAN CATCH URINE Special Requests NOT REPORTED Culture NO SIGNIFICANT GROWTH Report Status FINAL 03/12/2021 Normal [facility] Comment on above: Performed By: #### B HCG #### [facility] [address] [place] [address] Health Plan Advisor: Harshal Austin MD Chlamydia/GC DNA, Uron 03-11 Chlamydia Probe, Ur Negative Normal NEG [facility] Comment on above: Result Comment: CHLA [...] target. Performed By: #### U CGP #### [facility] [employer] [address] [place] [address] [id number] Health Plan Advisor: Isak Guerrero MD Gonorrhea Probe, Ur Negative Normal NEG [facility] Comment on above: Result Comment: NEIS [...] target. Performed By: #### U CGP #### [facility] [employer] [address] [place] [address] [id number] Health Plan Advisor: Isak Guerrero MD HIV Ag/Abon 03-11-2021 HIV Ag/Ab Non-Reactive Normal NR [facility] Comment on above: Result Comment: No l aboratory evidence of HIV infection. If acute HIV infection is suspected, consider testing for HIV-1 RNA. Performed By: #### H IVCMB, AHCV #### [facility] [employer] [address] [place] [address] [phone] Health Plan Advisor: Isak Guerrero MD HIV ScreenOrdered By: Bart Hayden on 03-11-2021 HIV Ag/Ab Non-Reactive NONREACTIVE [facility] Phone: Comment on above: No laboratory eviden ce of HIV infection. If acute HIV infection is suspected, consider testing for HIV-1 RNA. [employer] Phone: Hep C Abon 03-11-2021 Hep C Ab Non-Reactive Normal NR [facility] Comment on above: Result Comment: The [...] Performed By: #### H IVCMB, AHCV #### [address] [address] Health Plan Advisor: Isak Guerrero MD Profileon 1 T.pallidum Ab Screen Non-Reactive Normal [facility] Comment on above: Result Comment: T. pallidum antibodies are not detected. There is no serological evidence of infection with T. pallidum (early primary syphilis cannot be excluded). Retest in 2-4 weeks if syphilis is clinically suspect. Performed By: #### P RENAT #### [address] [address] Health Plan Advisor: Isak Guerrero MD [facility] [address] [place], [place] [phone] Health Plan Advisor: Harshal Austin MD Hep B Surf Ag Non-Reactive Normal [facility] Comment on above: Performed By: #### P RENAT #### [address] [address] Health Plan Advisor: Isak Guerrero MD [facility] [address] [place], [place] [phone] Health Plan Advisor: Harshal Austin MD Rubella Ab, IgG 36.9 IU/mL [facility] Comment on above: Result Comment: REFERENCE RANGE: <5.0 NON-REACTIVE (non-immune) 5.0 TO 9.9 EQUIVOCAL >=10.0 REACTIVE (immune) Performed By: #### P RENAT #### [address] [address] Health Plan Advisor: Isak Guerrero MD [facility] [address] [place] [address] Health Plan Advisor: Harshal Austin MD Hepatitis C AntibodyOrdered By: Karlee Hayden on 03-10-2021 Hepatitis C Ab Non-Reactive NONREACTIVE [employer] Phone: Comment on above: The hepatitis C [...] recommended by ordering HCV RNA by PCR. [employer] Phone: PROFILE IOrdered By : Karlee Hayden on 03-10-2021 Absolute Eos # 0.20 [employer] Phone: Absolute Immature Granulocyte NOT REPORTED [employer] Phone: Absolute Lymph # 2.50 [employer] Phone: Absolute Hart # 0.30 [employer] Phone: Basophils (Bld) [#/Vol] 0.00 10*3/uL [employer] Phone: Basophils/100 WBC (Bld) 1 % 0 - 2 % [employer] Phone: Differential Type YES [employer] Phone: Eosinophils/100 WBC (Bld) 3 % 0 - 5 % [employer] Phone: Hematocrit (Bld) [Volume fraction] 36.9 % 36 - 46 % [employer] Phone: Hemoglobin.gastrointes tinal spec 1 Ql (Stl) 12.7 g/dL 12.0 - 16.0 g/dL [employer] Phone: Hepatitis B Surface Ag Non-Reactive NONREACTIVE [employer] Phone: Immature Granulocytes NOT REPORTED 0 % M [employer] Phone: Lymphocytes/100 WBC (Bld) 38 % 15 - 40 % [employer] Phone: MCH (RBC) [Entitic mass] 31.7 pg 26 - 34 pg [employer] Phone: MCHC (RBC) [Mass/Vol] 34.5 g/dL 31 - 37 g/dL [facility] Phone: MCV (RBC) [Entitic vol] 91.9 fL 80 - 100 fL [employer] Phone: Monocytes/100 WBC (Bld) 5 % 4 - 8 % [employer] Phone: NRBC Automated NOT REPORTED per 100 WBC [employer] Phone: Platelet distribution width (Bld) [Ratio] 12.8 % 12.1 - 15.2 % [employer] Phone: Platelet Estimate NOT REPORTED [employer] Phone: Platelet mean volume (Bld) [Entitic vol] NOT REPORTED 6.0 - 12.0 fL [employer] Phone: Platelets (Bld) [#/Vol] 169 10*3/uL [employer] Phone: RBC (Bld) [#/Vol] 4.01 10*6/uL 4.0 - 5.2 m/uL [employer] Phone: RBC (Bld) [#/Vol] NOT REPORTED [employer] Phone: Rubella virus IgG Ql (S) 36.9 IU/mL [employer] Phone: Comment on above: REFERENCE RANGE: <5.0 NON-REACTIVE (non-immune) 5.0 TO 9.9 EQUIVOCAL >=10.0 REACTIVE (immune) Segmented neutrophils/100 WBC (Bld) 53 % 47 - 75 % [employer] Phone: Segs Absolute 3.50 [employer] Phone: T. pallidum, IgG Non-Reactive NONREACTIVE [employer] Phone: Comment on above: T. pallidum antibodies are not detected. There is no serological evidence of infection with T. pallidum (early primary syphilis cannot be excluded). Retest in 2-4 weeks if syphilis is clinically suspect. WBC (Bld) [#/Vol] 6.6 10*3/uL [employer] Phone: WBC (Bld) [#/Vol] NOT REPORTED [employer] Phone: [employer] Phone: TYPE AND SCREENOrde red By: Karlee Hayden on 03-10-2021 ABO/Rh Positive [employer] Phone: [employer] Phone: Profileon Abs. Basophil 0.00 k/uL Normal 0.0-0.2 [facility] Comment on above: Performed By: #### P RENAT #### [facility] [employer] [address] [place], [place] [id number] Health Plan Advisor: Isak Guerrero MD [facility] [address] [place] [address] Health Plan Advisor: Harshal Austin MD Abs.Neutrophil (Seg) 3.50 k/uL Normal 2.5-7.0 [facility] Comment on above: Performed By: #### P RENAT #### [facility] [employer] [address] [place], [place] [phone] Health Plan Advisor: Isak Guerrero MD [facility] [address] [place] [address] Health Plan Advisor: Harshal Austin MD Auto Diff Performed YES Normal [facility] Comment on above: Performed By: #### P RENAT #### [facility] [address] [place] [address] Health Plan Advisor: Isak Guerrero MD [facility] [address] [place] [address] Health Plan Advisor: Harshal Austin MD Basophils/100 WBC (Bld) 1 % Normal 0-2 [facility] Comment on above: Performed By: #### P RENAT #### [facility] [address] [place] [address] Health Plan Advisor: Isak Guerrero MD [facility] [address] [place] [address] Health Plan Advisor: Harshal Austin MD Eosinophils (Bld) [#/Vol] 0.20 10*3/uL Normal 0.0-0.4 [facility] Comment on above: Performed By: #### P RENAT #### [facility] [address] [place] [address] Health Plan Advisor: Isak Guerrero MD [facility] [address] [place] [address] Health Plan Advisor: Harshal Austin MD Eosinophils/100 WBC (Bld) 3 % Normal 0-5 [facility] Comment on above: Performed By: #### P RENAT #### [address] [address] Health Plan Advisor: Isak Guerrero MD [facility] [address] [place] [address] Health Plan Advisor: Harshal Austin MD Erythrocyte distribution width (RBC) [Ratio] 12.8 % Normal 12.1-15.2 [facility] Comment on above: Performed By: #### P RENAT #### [address] [address] Health Plan Advisor: Isak Guerrero MD [facility] [address] [place], [place] [phone] Health Plan Advisor: Harshal Austin MD Hematocrit (Bld) [Volume fraction] 36.9 % Normal 36-46 [facility] Comment on above: Performed By: #### P RENAT #### [facility] [address] [place], [place] [phone] Health Plan Advisor: Isak Guerrero MD [facility] [address] [place], [place] [phone] Health Plan Advisor: Harshal Austin MD Hemoglobin (Bld) [Mass/Vol] 12.7 g/dL Normal 12.0-16.0 [facility] Comment on above: Performed By: #### P RENAT #### [address] [address] Health Plan Advisor: Isak Guerrero MD [facility] [address] [place] [address] Health Plan Advisor: Harshal Austin MD Lymphocytes (Bld) [#/Vol] 2.50 10*3/uL Normal 1.0-4.8 [facility] Comment on above: Performed By: #### P RENAT #### [address] [address] Health Plan Advisor: Isak Guerrero MD [facility] [address] [place], [place] [phone] Health Plan Advisor: Harshal Austin MD Lymphocytes/100 WBC (Bld) 38 % Normal 15-40 [facility] Comment on above: Performed By: #### P RENAT #### [address] [address] Health Plan Advisor: Isak Guerrero MD [facility] [address] [place], [place] [phone] Health Plan Advisor: Harshal Austin MD MCH (RBC) [Entitic mass] 31.7 pg Normal 26-34 [facility] Comment on above: Performed By: #### P RENAT #### [place] [address] [place] [address] Health Plan Advisor: Isak Guerrero MD [facility] [address] [place] [address] Health Plan Advisor: Harshal Austin MD MCHC (RBC) [Mass/Vol] 34.5 g/dL Normal 31-37 [facility] Comment on above: Performed By: #### P RENAT #### [address] [address] Health Plan Advisor: Isak Guerrero MD [facility] [address] [place], [place] [phone] Health Plan Advisor: Harshal Austin MD MCV (RBC) [Entitic vol] 91.9 fL Normal 80-100 [facility] Comment on above: Performed By: #### P RENAT #### [address] [address] Health Plan Advisor: Isak Guerrero MD [facility] [address] [place] [address] Health Plan Advisor: Harshal Austin MD Monocytes (Bld) [#/Vol] 0.30 10*3/uL Normal 0.0-1.0 [facility] Comment on above: Performed By: #### P RENAT #### [address] [address] Health Plan Advisor: Isak Guerrero MD [facility] [address] [place] [address] Health Plan Advisor: Harshal Austin MD Monocytes/100 WBC (Bld) 5 % Normal 4-8 [facility] Comment on above: Performed By: #### P RENAT #### [address] [address] Health Plan Advisor: Isak Guerrero MD [facility] [address] [place], [place] [phone] Health Plan Advisor: Harshal Austin MD Neutrophil (Seg) 53 % Normal 47-75 [facility] Comment on above: Performed By: #### P RENAT #### [facility] [address] [place] [address] Health Plan Advisor: Isak Guerrero MD [facility] [address] [place] [address] Health Plan Advisor: Harshal Austin MD Platelets (Bld) [#/Vol] 169 10*3/uL Normal 140-450 [facility] Comment on above: Performed By: #### P RENAT #### [address] [address] Health Plan Advisor: Isak Guerrero MD [facility] [address] [place] [address] Health Plan Advisor: Harshal Austin MD RBC (Bld) [#/Vol] 4.01 10*6/uL Normal 4.0-5.2 [facility] Comment on above: Performed By: #### P RENAT #### [facility] [address] [place] [address] Health Plan Advisor: Isak Guerrero MD [facility] [address] [place] [address] Health Plan Advisor: Harshal Austin MD WBC (Bld) [#/Vol] 6.6 10*3/uL Normal 3.5-11.0 [facility] Comment on above: Performed By: #### P RENAT #### [facility] [address] [place] [address] Health Plan Advisor: Isak Guerrero MD [facility] [address] [place] [address] Health Plan Advisor: Harshal Austin MD Abs.Imm.Granulocyte NOT REPORTED Normal 0.00-0.30 [facility] Comment on above: Performed By: #### P RENAT #### [address] [address] Health Plan Advisor: Isak Guerrero MD [facility] [address] [place] [address] Health Plan Advisor: Harshal Austin MD Immature Granulocyte NOT REPORTED Normal 0 Me [facility] Comment on above: Performed By: #### P RENAT #### [facility] [address] [place] [address] Health Plan Advisor: Isak Guerrero MD [facility] [address] [place] [address] Health Plan Advisor: Harshal Austin MD MPV NOT REPORTED Normal 6.0-12.0 [facility] Comment on above: Performed By: #### P RENAT #### [facility] [address] [place] [address] Health Plan Advisor: Isak Guerrero MD [facility] [address] [place] [address] Health Plan Advisor: Harshal Austin MD NRBC Automated NOT REPORTED Normal [facility] Comment on above: Performed By: #### P RENAT #### [facility] [address] [place] [address] Health Plan Advisor: Isak Guerrero MD [facility] [address] [place] [address] Health Plan Advisor: Harshal Austin MD Platelet Estimate NOT REPORTED Normal [facility] Comment on above: Performed By: #### P RENAT #### [facility] [address] [place] [address] Health Plan Advisor: Isak Guerrero MD [facility] [address] [place] [address] Health Plan Advisor: Harshal Austin MD RBC morphology finding Nom (Bld) NOT REPORTED Normal [facility] Comment on above: Performed By: #### P RENAT #### [facility] [address] [place] [address] Health Plan Advisor: Isak Guerrero MD [facility] [address] [place], [place] [phone] Health Plan Advisor: Harshal Austin MD WBC Morphology NOT REPORTED Normal [facility] Comment on above: Performed By: #### P RENAT #### [facility] [address] [place], [place] [phone] Health Plan Advisor: Isak Guerrero MD [facility] [address] [place], [place] [phone] Health Plan Advisor: Harshal Austin MD Type + Scrnon 03-10 Type + Scrn Negative Normal [facility] Comment on above: Performed By: #### B HCG #### [facility] [address] [place], [place] [phone] Health Plan Advisor: Harshal Austin MD Toxicology Scree, Urineon Amphetamine(s),Ur Negative Normal NEG [facility] Comment on above: Result Comment: (Positive cutoff 500 ng/mL) Performed By: #### C PDAU #### [facility] [address] [place], [place] [phone] Health Plan Advisor: Harshal Austin MD Barbiturate(s),Ur Negative Normal NEG [facility] Comment on above: Result Comment: (Positive cutoff 200 ng/mL) Performed By: #### C PDAU #### [facility] [address] [place], [place] [phone] Health Plan Advisor: Harshal Austin MD Benzodiazepine(s) Negative Normal NEG [facility] Comment on above: Result Comment: (Positive cutoff 150 ng/mL) Performed By: #### C PDAU #### [facility] [address] [place], [place] [phone] Health Plan Advisor: Harshal Austin MD Cannabinoid(s),Ur Negative Normal NEG [facility] Comment on above: Result Comment: (Positive cutoff 50 ng/mL) Performed By: #### C PDAU #### [facility] [address] [place] [address] Health Plan Advisor: Harshal Austin MD Cocaine Metabolite Negative Normal NEG [facility] Comment on above: Result Comment: (Positive cutoff 150 ng/mL) Performed By: #### C PDAU #### [facility] [address] [place] [address] Health Plan Advisor: Harshal Austin MD Methadone Negative Normal NEG [facility] Comment on above: Result Comment: (Positive cutoff 200 ng/mL) Performed By: #### C PDAU #### [facility] [address] [place] [address] Health Plan Advisor: Harshal Austin MD Methamphetamine, Ur Negative Normal NEG [facility] Comment on above: Result Comment: (Positive cutoff 500 ng/mL) Performed By: #### C PDAU #### [facility] [address] [place] [address] Health Plan Advisor: Harshal Austin MD Opiate(s), Ur Negative Normal NEG [facility] Comment on above: Result Comment: (Positive cutoff 100 ng/mL) Performed By: #### C PDAU #### [facility] [address] [place] [address] Health Plan Advisor: Harshal Austin MD Oxycodone, Urine Negative Normal NEG [facility] Comment on above: Result Comment: (Positive cutoff 100 ng/mL) Performed By: #### C PDAU #### [facility] [address] [place] [address] Health Plan Advisor: Harshal Austin MD Phencyclidine, Ur Negative Normal NEG [facility] Comment on above: Result Comment: (Positive cutoff 25 ng/mL) Performed By: #### C PDAU #### [facility] [address] [place] [address] Health Plan Advisor: Harshal Austin MD Propoxyphene,Urine Negative Normal NEG [facility] Comment on above: Result Comment: (Positive cutoff 300 ng/mL) Performed By: #### C PDAU #### [facility] [address] [place], [place] [phone] Health Plan Advisor: Harshal Austin MD Tricyclic Antidepressants Negative Normal NEG [facility] Comment on above: Result Comment: (Positive cutoff 300 ng/mL) Drug screen results are to be used for medical purposes only. All positive results are unconfirmed. Testing for employment or legal uses should be sent to a reference laboratory for confirmation. Performed By: #### C PDAU #### [facility] [address] [place], [place] [phone] Health Plan Advisor: Harshal Austin MD Buprenorphrine, Ur NOT REPORTED Normal NEG [facility] Comment on above: Performed By: #### C PDAU #### [facility] [address] [place], [place] [phone] Health Plan Advisor: Harshal Austin MD Interpretive Info NOT REPORTED Normal [facility] Comment on above: Performed By: #### C PDAU #### [facility] [address] [place], [place] [phone] Health Plan Advisor: Harshal Austin MD MDMA, Urine NOT REPORTED Normal NEG [facility] Comment on above: Performed By: #### C PDAU #### [facility] [address] [place], [place] [phone] Health Plan Advisor: Harshal Austin MD Urine Drug Screen, Comprehen siveOrdered By: Karlee Hayden on 03-10-2021 Amphetamine Screen, Ur Negative NEGATIVE [facility] Work Phone: Comment on above: (Positive cutoff 500 ng/mL) Barbiturate Screen, Ur Negative NEGATIVE [facility] Work Phone: Comment on above: (Positive cutoff 200 ng/mL) Benzodiazepine Screen, Urine Negative NEGATIVE [facility] Phone: Comment on above: (Positive cutoff 150 ng/mL) Buprenorphine Urine NOT REPORTED NEGATIVE [facility] [employer] Work Phone: Cannabinoid Scrn, Ur Negative NEGATIVE [employer] Phone: Comment on above: (Positive cutoff 50 ng/mL) Cocaine Metabolite, Urine Negative NEGATIVE [employer] Phone: Comment on above: (Positive cutoff 150 ng/mL) MDMA, Urine NOT REPORTED NEGATIVE [facility] Work Phone: Methadone Screen, Urine Negative NEGATIVE [facility] Work Phone: Comment on above: (Positive cutoff 200 ng/mL) Methamphetamine, Urine Negative [facility]IVE [facility] Phone: Comment on above: (Positive cutoff 500 ng/mL) Opiates, Urine Negative NEGATIVE [employer] Phone: Comment on above: (Positive cutoff 100 ng/mL) Oxycodone Screen, Ur Negative NEGATIVE [employer] Phone: Comment on above: (Positive cutoff 100 ng/mL) Phencyclidine, Urine Negative NEGATIVE [employer] Phone: Comment on above: (Positive cutoff 25 ng/mL) Propoxyphene, Urine Negative NEGATIVE [employer] Phone: Comment on above: (Positive cutoff 300 ng/mL) Test Information NOT REPORTED [employer] Phone: Tricyclic Antidepressants, Urine Negative NEGATIVE [employer] Phone: Comment on above: (Positive cutoff 300 ng/mL) Drug screen results are to be used for medical purposes only. All positive results are unconfirmed. Testing for employment or legal uses should be sent to a reference laboratory for confirmation. [employer] Phone: HCG ( test) Ql (U)o n 03-03-2021 HCG.beta subunit [Moles/Vol] Positive [facility] Interpretation and review of laboratory results Abnormal [facility] All internal control s were present [facility] POCT ALERE DRUG SCREENon Amphetamine (AMP), poct Negative [facility] Barbiturates (BAR), poct Negative [facility] Buprenorphine Glucuronide (BUPG),poct Positive [facility] COCAINE (NADIRA), POCT Negative [facility] Ecstasy (MDMA), poct Negative [facility] Interpretation and review of laboratory results Normal [facility] Marijuana (THC), poct Negative [facility] Comment on above: temp 90 urine was no t witnessed Methadone (MTD), poct Negative [facility] Methamphetamine (mAMP/MET), poct Negative [facility] Nortripyline (TCA), poct Negative [facility] Opiate (OPI), poct Negative [facility] OXAZEPAM (BZO),POCT Negative [facility] Oxycodone (OXY), poct Negative [facility] Phencyclidine (PCP), poct Negative [facility] Propoxyphene (PPX), poct Negative [facility] All internal control s were present [facility] POCT ALERE DRUG SCREENon Amphetamine (AMP), poct Negative [facility] Barbiturates (BAR), poct Negative [facility] Buprenorphine Glucuronide (BUPG),poct Positive [facility] COCAINE (NADIRA), POCT Negative [facility] Ecstasy (MDMA), poct Negative [facility] Interpretation and review of laboratory results Normal [facility] Marijuana (THC), poct Negative [facility] Comment on above: temp 94 urine was no t witnessed Methadone (MTD), poct Negative [facility] Methamphetamine (mAMP/MET), poct Negative [facility] [facility] Nortripyline (TCA), poct Negative [facility] Opiate (OPI), poct Negative [facility] OXAZEPAM (BZO),POCT Negative [facility] Oxycodone (OXY), poct Negative [facility] Phencyclidine (PCP), poct Negative [facility] Propoxyphene (PPX), poct Negative [facility] All internal control s were present [facility] POCT ALERE DRUG SCREENOrdere d By: Radha Benavides on 01-29-2021 Amphetamine (AMP), poct Negative [facility] Barbiturates (BAR), poct Negative [facility] Buprenorphine Glucuronide (BUPG),poct Positive [facility] COCAINE (NADIRA), POCT Negative [facility] Ecstasy (MDMA), poct Negative [facility] Interpretation and review of laboratory results Normal [facility] Marijuana (THC), poct Negative [facility] Comment on above: temperature is 94, c ollection was not witnessed Methadone (MTD), poct Negative [facility] Methamphetamine (mAMP/MET), poct Negative [facility] Nortripyline (TCA), poct Negative [facility] Opiate (OPI), poct Negative [facility] OXAZEPAM (BZO),POCT Negative [facility] Oxycodone (OXY), poct Negative [facility] Phencyclidine (PCP), poct Negative [facility] Propoxyphene (PPX), poct Negative [facility] All internal control s are positive [facility] POCT URINE DIPSTICK AUTOMATE DOrdered By: Radha Benavides on 01-29-2021 Amorphous sediment LM Ql (Urine sed) not tested [facility] Appearance (U) cloudy [facility] Bacteria LM Ql (Urine sed) not tested [facility] Bilirubin Ql (U) Negative [facility] Casts LM.LPF (Urine sed) [#/Area] not tested [facility] Color (U) yellow [facility] Crystals LM Nom (Urine sed) not tested [facility] Epithelial cells.squamous LM.HPF (Urine sed) [#/Area] not tested [facility] Flow cytometry specialist review Malik (Unsp spec) [Interp] not tested [facility] Glucose Auto test strip (U) [Mass/Vol] Negative mg/dL [facility] Interpretation and review of laboratory results Abnormal [facility] Ketones [Mass/Vol] Negative mg/dL [facility] Leukocyte esterase Qn (U) not tested [facility] Leukocyte esterase Test strip Ql (U) large [facility] Microscopic observation Gram stain Nom (Bronch spec) not tested [facility] Nitrite Ql (U) Positive [facility] pH (U) 5.5 [pH] [facility] Protein Ql (U) trace mg/dL [facility] RBC LM.HPF (Urine sed) [#/Area] not tested [facility] RBC Ql (U) trace-lysed [facility] Specific gravity (U) [Rel density] >=1.030 [facility] Transitional cells LM Ql (Urine sed) not tested [facility] Urobilinogen Qn (U) 0.2 [facility] WBC LM.HPF (Urine sed) [#/Area] not tested [facility] No internal control [facility] POCT ALERE DRUG SCREENOrdere d By: Radha Benavides on 01-01-2021 Amphetamine (AMP), poct Negative [facility] Barbiturates (BAR), poct Negative [facility] Buprenorphine Glucuronide (BUPG),poct Positive [facility] COCAINE (NADIRA), POCT Negative [facility] Ecstasy (MDMA), poct Negative [facility] Interpretation and review of laboratory results Normal [facility] Marijuana (THC), poct Negative [facility] Comment on above: Temp 94 urine was no t witnessed Methadone (MTD), poct Negative [facility] Methamphetamine (mAMP/MET), poct Negative [facility] Nortripyline (TCA), poct Negative [facility] Opiate (OPI), poct Negative [facility] OXAZEPAM (BZO),POCT Negative [facility] Oxycodone (OXY), poct Negative [facility] Phencyclidine (PCP), poct Negative [facility] Propoxyphene (PPX), poct Negative [facility] All internal control s were present [facility] POCT ALERE DRUG SCREENOrdere d By: Radha Benavides on 12-04-2020 Amphetamine (AMP), poct Negative [facility] Barbiturates (BAR), poct Negative [facility] Buprenorphine Glucuronide (BUPG),poct Positive [facility] COCAINE (NADIRA), POCT Negative [facility] Ecstasy (MDMA), poct Negative [facility] Interpretation and review of laboratory results Normal [facility] Marijuana (THC), poct Negative [facility] Comment on above: Temp 94 urine was no t witnessed Methadone (MTD), poct Negative [facility] Methamphetamine (mAMP/MET), poct Negative [facility] Nortripyline (TCA), poct Negative [facility] Opiate (OPI), poct Negative [facility] OXAZEPAM (BZO),POCT Negative [facility] Oxycodone (OXY), poct Negative [facility] Phencyclidine (PCP), poct Negative [facility] Propoxyphene (PPX), poct Negative [facility] All internal control s were present [facility] POCT ALERE DRUG SCREENOrdere d By: Radha Benavides on 11-20-2020 Amphetamine (AMP), poct Negative [facility] Barbiturates (BAR), poct Negative [facility] Buprenorphine Glucuronide (BUPG),poct Positive [facility] COCAINE (NADIRA), POCT Negative [facility] Ecstasy (MDMA), poct Negative [facility] Interpretation and review of laboratory results Normal [facility] Marijuana (THC), poct Negative [facility] Comment on above: temperature is 90, c ollection was not witnessed Methadone (MTD), poct Negative [facility] Methamphetamine (mAMP/MET), poct Negative [facility] Nortripyline (TCA), poct Negative [facility] Opiate (OPI), poct Negative [facility] OXAZEPAM (BZO),POCT Negative [facility] Oxycodone (OXY), poct Negative [facility] Phencyclidine (PCP), poct Negative [facility] Propoxyphene (PPX), poct Negative [facility] All internal control s are positive [facility] POCT ALERE DRUG SCREENOrdere d By: Radha Benavides on 11-06-2020 Amphetamine (AMP), poct Negative [facility] Barbiturates (BAR), poct Negative [facility] Buprenorphine Glucuronide (BUPG),poct Positive [facility] COCAINE (NADIRA), POCT Negative [facility] Ecstasy (MDMA), poct Negative [facility] Interpretation and review of laboratory results Normal [facility] Marijuana (THC), poct Negative [facility] Comment on above: temperature is 90, c ollection was not witnessed Methadone (MTD), poct Negative [facility] Methamphetamine (mAMP/MET), poct Negative [facility] Nortripyline (TCA), poct Negative [facility] Opiate (OPI), poct Negative [facility] OXAZEPAM (BZO),POCT Negative [facility] Oxycodone (OXY), poct Negative [facility] Phencyclidine (PCP), poct Negative [facility] Propoxyphene (PPX), poct Negative [facility] All internal control s are positive [facility] POCT ALERE DRUG SCREENon Amphetamine (AMP), poct Negative [facility] Barbiturates (BAR), poct Negative [facility] Buprenorphine Glucuronide (BUPG),poct Positive [facility] COCAINE (NADIRA), POCT Negative [facility] Ecstasy (MDMA), poct Negative [facility] Interpretation and review of laboratory results Normal [facility] Methadone (MTD), poct Negative [facility] Methamphetamine (mAMP/MET), poct Negative [facility] Nortripyline (TCA), poct Negative [facility] Opiate (OPI), poct Negative [facility] OXAZEPAM (BZO),POCT Negative [facility] Oxycodone (OXY), poct Negative [facility] Phencyclidine (PCP), poct Negative [facility] Propoxyphene (PPX), poct Negative [facility] All internal control s are positive [facility] POCT ALERE DRUG SCREENon Amphetamine (AMP), poct Negative [facility] Barbiturates (BAR), poct Negative [facility] Buprenorphine Glucuronide (BUPG),poct Positive [facility] COCAINE (NADIRA), POCT Negative [facility] Ecstasy (MDMA), poct Negative [facility] Interpretation and review of laboratory results Normal [facility] Methadone (MTD), poct Negative [facility] Methamphetamine (mAMP/MET), poct Negative [facility] Nortripyline (TCA), poct Negative [facility] Opiate (OPI), poct Negative [facility] OXAZEPAM (BZO),POCT Negative [facility] Oxycodone (OXY), poct Negative [facility] Phencyclidine (PCP), poct Negative [facility] Propoxyphene (PPX), poct Negative [facility] All internal control s are positive [facility] POCT ALERE DRUG SCREENon Amphetamine (AMP), poct Negative [facility] Barbiturates (BAR), poct Negative [facility] Buprenorphine Glucuronide (BUPG),poct Positive [facility] COCAINE (NADIRA), POCT Negative [facility] Ecstasy (MDMA), poct Negative [facility] Interpretation and review of laboratory results Normal [facility] Marijuana (THC), poct Negative [facility] Comment on above: temp 94 urine was no t witnessed Methadone (MTD), poct Negative [facility] Methamphetamine (mAMP/MET), poct Negative [facility] Nortripyline (TCA), poct Negative [facility] Opiate (OPI), poct Negative [facility] OXAZEPAM (BZO),POCT Negative [facility] Oxycodone (OXY), poct Negative [facility] Phencyclidine (PCP), poct Negative [facility] Propoxyphene (PPX), poct Negative [facility] All internal control s were present [facility] TSH W/FT4 REFLEXon TSH Qn 0.911 m[IU]/L [facility] Comment on above: Testing performed at [address] VITAMIN B12on 10-02-2020 Cobalamin (Vitamin B12) [Mass/Vol] 541 pg/mL 239 - 931 PG/ML [facility] Comment on above: Testing performed at [address] VITAMIN D (25-HYDROXY,TOTAL) on 10-02-2020 25-Hydroxyvitamin D2+25-Hydroxyvitamin D3 [Mass/Vol] 27.2 NG/ML [facility] Comment on above: DEFICIENT <20 NG/ML INSUFFICIENT 20-<30 NG/ML SUFFICIENT 30-100 NG/ML POTENTIAL TOXICITY >100 NG/ML Testing performed at [place], [place] [address] [facility] HEPATITIS A IGM ABon 021 HAV IgM IA Ql Negative [facility] Comment on above: Reference range: Neg ative PERFORMED AT [facility] POCT ALERE DRUG SCREENon Amphetamine (AMP), poct Negative [facility] Barbiturates (BAR), poct Negative [facility] Buprenorphine Glucuronide (BUPG),poct Postive [facility] Comment on above: Active prescription for Dr. Cox COCAINE (NADIRA), POCT Negative [facility] Ecstasy (MDMA), poct Negative [facility] Interpretation and review of laboratory results Normal [facility] Marijuana (THC), poct Negative [facility] Comment on above: Temp. 94. Collection not witnessed. Methadone (MTD), poct Negative [facility] Methamphetamine (mAMP/MET), poct Negative [facility] Nortripyline (TCA), poct Negative [facility] Opiate (OPI), poct Negative [facility] OXAZEPAM (BZO),POCT Negative [facility] Oxycodone (OXY), poct Negative [facility] Phencyclidine (PCP), poct Negative [facility] Propoxyphene (PPX), poct Negative [facility] All internal control s are positive. [facility] POCT URINE PREGNANCYon 09-29 HCG.beta subunit Qn Negative [facility] Interpretation and review of laboratory results Normal [facility] All internal control s are positive. [facility] HEPATITIS A, B, Con 09-27-19 21 HBV surface Ag IA Ql Negative NEGATIVE [facility] Hep A AB (IGG + IGM) Positive Abnormal NEGATIVE [facility] Comment on above: Specimen is positive for HAV, sent to reference lab for HAVAb, IgM. Positive indicates a reactive sample and the presence of HAV Ab, individual has been previously infected or is presumed to be immune to HAV infection. HEP B CORE AB,TOTAL(IGG+IGM) Negative NEGATIVE [facility] Hep B Surf AB Negative Abnormal POSITIVE [facility] Comment on above: Clinical Interpretation of Immune Status Negative: patient is considered to be not immune to infection with HBV Intermediate: unable to determine if anti-HBs is present at levels consistent with immunity Positive: anti-HBs detected, patient is considered to be immune to infection with HBV HEP C AB Negative NEGATIVE [facility] Interpretation and review of laboratory results Abnormal [facility] CBC, EDIF, PLATELETon 2020 Band form neutrophils/100 WBC (Bld) <10% BANDS PRESENT [facility] Differential cell count method Nom (Bld) MANUAL DIFF % [facility] Eosinophils/100 WBC (Bld) 3 % 0 - 7.0 % [facility] Erythrocyte distribution width (RBC) [Ratio] 13.6 % 11.5 - 14.5 % [facility] Hematocrit (Bld) [Volume fraction] 41.3 % 36.0 - 48.0 % [facility] Hemoglobin (Bld) [Mass/Vol] 14.2 g/dL [facility] Immature granulocytes/100 WBC (Bld) 4 % [facility] Interpretation and review of laboratory results Abnormal [facility] Lymphocytes/100 WBC (Bld) 50 % 20.5 - 51.1 % [facility] MCH (RBC) [Entitic mass] 32.0 pg 26.0 - 35.0 PG [facility] MCHC (RBC) [Mass/Vol] 34.4 g/dL [facility] MCV (RBC) [Entitic vol] 92.8 fL [facility] Monocytes/100 WBC (Bld) 4 % 1.7 - 10.0 % [facility] Neutrophils/100 WBC (Bld) 39 % Low 42.2 - 75.2 % [facility] Platelet mean volume (Bld) [Entitic vol] 10.4 fL [facility] Platelet morphology finding Nom (Bld) ADEQUATE [facility] Comment on above: Testing performed at [place], [place] [address] Platelets (Bld) [#/Vol] 192 10*3/uL 130.0 - 400.0 10*3/uL [facility] RBC (Bld) [#/Vol] 4.45 10*6/uL 4.0 - 5.4 10*6/uL [facility] RBC morphology finding Nom (Bld) NORMAL [facility] WBC (Bld) [#/Vol] 6.6 10*3/uL 3.6 - 11.0 10*3/uL [facility] COMPREHENSIVE METABOLIC PANE Antwon 09-25-2020 Albumin [Mass/Vol] 4.3 G/dl 3.5 - 5.0 G/dl [facility] Albumin/Globulin [Mass ratio] 1.3 {ratio} [facility] ALP [Catalytic activity/Vol] 68 U/L [facility] ALT [Catalytic activity/Vol] 11 U/L <35 IU/L [facility] AST [Catalytic activity/Vol] 26 U/L [facility] Bilirubin [Mass/Vol] 0.3 mg/dL [facility] Calcium [Mass/Vol] 9.4 mg/dL [facility] Chloride [Moles/Vol] 102 mmol/L [facility] Comment on above: Please note: Triglyc eride levels of 600mg/dL or higher may positively bias chloride results by approximately 2.1 mmol CO2 [Moles/Vol] 26 mmol/L [facility] Creatinine [Mass/Vol] 0.80 mg/dL [facility] GFR/1.73 sq M predicted among blacks MDRD (S/P/Bld) [Vol rate/Area] mL/min/{1.73_m2} ml/min/1.73s q.m [facility] GFR/1.73 sq M predicted among non-blacks MDRD (S/P/Bld) [Vol rate/Area] mL/min/{1.73_m2} ml/min/1.73s q.m [facility] GFR/1.73 sq M predicted among non-blacks MDRD (S/P/Bld) [Vol rate/Area] Average GFR for 20-29 years old = 116. [facility] Comment on above: Chronic Kidney disea se, GFR = <60. Kidney failure, GFR = <15. The GFR estimate is not adjusted for extreme body surface area or acute process, nor has it been validated for women or ethnic groups other than and . Testing performed at [place], [place] [address] Glucose post fast [Mass/Vol] 77 mg/dL [facility] Comment on above: NORMAL <100 mg/dL PREDIABETES 101-126 mg/dL DIABETES 126 mg/dL or higher Potassium [Moles/Vol] 4.3 mmol/L [facility] Protein [Mass/Vol] 7.5 g/dL [facility] Sodium [Moles/Vol] 137 mmol/L [facility] Urea nitrogen [Mass/Vol] 13 mg/dL [facility] HIV 1 AND 2 ANTIBODIESon HIV 1+2 Ab IA Ql NONREACTIVE NONREACTIVE [facility] Comment on above: Testing performed at [address] Basic Metabolic Panel w/ Ref rory to MGon 01-22-2020 Anion gap [Moles/Vol] 10 mmol/L 9 - 17 mmol/L [place] Bun/Cre Ratio 12 [place] Calcium [Mass/Vol] 10.6 mg/dL High 8.6 - 10. 4 mg/dL [place] Chloride [Moles/Vol] 101 mmol/L 98 - 10 7 mmol/L [place] CO2 [Moles/Vol] 25 mmol/L 20 - 31 mmol/L [place] Creatinine [Mass/Vol] 0.85 mg/dL 0.5 - 0.9 mg/dL [place] GFR >60 >60 mL/min [place] GFR Non- >60 >60 mL/min [place] GFR/1.73 sq M predicted among non-blacks MDRD (S/P/Bld) [Vol rate/Area] [place] Comment on above: Average GFR for 20-2 9 years old: 116 mL/min/1.73sq m Chronic Kidney Disease: <60 mL/min/1.73sq m Kidney failure: <15 mL/min/1.73sq m eGFR calculated using average adult body mass. Additional eGFR calculator available at: http://www.thereNow.Planearth NET/multiple_crcl_2012.htm GFR/1.73 sq M predicted among non-blacks MDRD (S/P/Bld) [Vol rate/Area] NOT REPORTED [place] Glucose [Mass/Vol] 93 mg/dL 70 - 99 mg/dL [place] Interpretation and review of laboratory results Abnormal [place] Potassium [Moles/Vol] 4.2 mmol/L 3.7 - 5.3 mmol/L [place] Sodium [Moles/Vol] 136 mmol/L 135 - 144 mmol/L [place] Urea nitrogen [Mass/Vol] 10 mg/dL 6 - 20 mg/dL [place] CBC Auto Differentialon Basophils (Bld) [#/Vol] 0.10 10*3/uL [place] Basophils/100 WBC (Bld) 1 % 0 - 2 % [place] Differential Type YES [place] Eosinophils (Bld) [#/Vol] 0.20 10*3/uL [place] Eosinophils/100 WBC (Bld) 2 % 0 - 5 % [place] Erythrocyte distribution width (RBC) [Ratio] 14.1 % 12.1 - 15.2 % [place] Hematocrit (Bld) [Volume fraction] 41.2 % 36 - 46 % [place] Hemoglobin (Bld) [Mass/Vol] 14.3 g/dL 12 - 16 g/dL [place] Lymphocytes (Bld) [#/Vol] 2.50 10*3/uL [place] Lymphocytes/100 WBC (Bld) 37 % 15 - 40 % [place] MCH (RBC) [Entitic mass] 31.7 pg 26 - 34 pg [place] MCHC (RBC) [Mass/Vol] 34.8 g/dL 31 - 37 g/dL [place] MCV (RBC) [Entitic vol] 91.3 fL 80 - 100 fL [place] Monocytes (Bld) [#/Vol] 0.40 10*3/uL [place] Monocytes/100 WBC (Bld) 6 % 4 - 8 % [place] Platelet mean volume (Bld) [Entitic vol] NOT REPORTED 6 - 12 fL [place] Platelets (Bld) [#/Vol] NOT REPORTED [place] Platelets (Bld) [#/Vol] 198 10*3/uL [place] RBC (Bld) [#/Vol] 4.51 10*6/uL 4 - 5.2 m/uL [place] RBC morphology finding Nom (Bld) NOT REPORTED [place] Segmented neutrophils/100 WBC (Bld) 54 % 47 - 75 % [place] Segs Absolute 3.60 [place] WBC (Bld) [#/Vol] 6.6 10*3/uL [place] WBC (Bld) [#/Vol] NOT REPORTED per 100 WBC [place] WBC Morphology NOT REPORTED [place] HCG Qualitative, Serumon hCG Qual Negative NEGATIVE [place] Comment on above: Specimens with hCG l evels near the threshold of the test (25 mIU/mL) may give a negative or indeterminate result. In such cases, another test should be performed with a new specimen in 48-72 hours. If early is suspected clinically in this setting, correlation with quantitative serum b-hCG level is suggested. [facility] has confirmed the use of plasma for this test. This has not been cleared or approved by the U.S. Food and Drug Administration. The FDA has determined that such clearance is not necessary. Otheron 01-22-2020 Immature granulocytes (Bld) [#/Vol] NOT REPORTED [place] XR CHEST PORTABLEon 01-22-20 20 EXAM: Portable chest REASON FOR EXAM: Productive cough for a week with headache for 3 days. TECHNIQUE: A portable frontal view of the chest was obtained. COMPARISON: None. FINDINGS: The lungs are well-inflated and clear. The heart and mediastinum are normal. There is no mass or pathologic adenopathy. Osseous structures are normal. [place] Abiod[place], M[facility] Incoming Radiant Results From [facility] - 01/22/2020 3:05 PM EDT EXAM: Portable chest REASON FOR EXAM: Productive cough for a week with headache for 3 days. TECHNIQUE: A portable frontal view of the chest was obtained. COMPARISON: None. FINDINGS: The lungs are well-inflated and clear. The heart and mediastinum are normal. There is no mass or pathologic adenopathy. Osseous structures are normal. IMPRESSION: No acute cardiopulmonary process. [place] No acute cardiopulmo nary process. [place] Wet prep, genitalon 12-18-19 20 Direct Exam CLUE CELLS SEEN Abnormal [place] Direct Exam NO TRICHOMONAS SEEN [place] Direct Exam NO YEAST OBSERVED [place] Interpretation and review of laboratory results Abnormal [place] Special Requests NOT REPORTED [place] Specimen Description .VAGINAL SPECIMEN [place] Hepatic Function Panelon Albumin [Mass/Vol] 4.1 g/dL 3.5 - 5.2 g/dL [place] Albumin/Globulin [Mass ratio] 1.3 {ratio} [place] ALP [Catalytic activity/Vol] 61 U/L 35 - 104 U/L [place] ALT [Catalytic activity/Vol] 9 U/L 5 - 33 U/L [place] AST [Catalytic activity/Vol] 14 U/L <32 [place] Bilirubin Ql (U) 0.25 mg/dL Low 0.3 - 1.2 mg/dL [place] Bilirubin, Indirect CANNOT BE CALCULATED 0 - 1 mg/dL [place] Bilirubin.direct [Mass/Vol] mg/dL <0.31 mg/dL [place] Globulin (S) [Mass/Vol] NOT REPORTED 1.5 - 3.8 g/dL [place] Interpretation and review of laboratory results Abnormal [place] Protein [Mass/Vol] 7.2 g/dL 6.4 - 8.3 g/dL [place] CBC Auto Differentialon Basophils (Bld) [#/Vol] 0.00 10*3/uL [place] Basophils/100 WBC (Bld) 0 % 0 - 2 % [place] Differential Type YES [place] Eosinophils (Bld) [#/Vol] 0.20 10*3/uL [place] Eosinophils/100 WBC (Bld) 2 % 0 - 5 % [place] Erythrocyte distribution width (RBC) [Ratio] 12.9 % 12.1 - 15.2 % [place] Hematocrit (Bld) [Volume fraction] 41.0 % 36 - 46 % [place] Hemoglobin (Bld) [Mass/Vol] 13.8 g/dL 12 - 16 g/dL [place] Interpretation and review of laboratory results Abnormal [place] Lymphocytes (Bld) [#/Vol] 1.60 10*3/uL [place] Lymphocytes/100 WBC (Bld) 13 % Low 15 - 40 % [place] MCH (RBC) [Entitic mass] 30.9 pg 26 - 34 pg [place] MCHC (RBC) [Mass/Vol] 33.8 g/dL 31 - 37 g/dL [place] MCV (RBC) [Entitic vol] 91.4 fL 80 - 100 fL [place] Monocytes (Bld) [#/Vol] 0.90 10*3/uL [place] Monocytes/100 WBC (Bld) 7 % 4 - 8 % [place] Platelet mean volume (Bld) [Entitic vol] NOT REPORTED 6 - 12 fL [place] Platelets (Bld) [#/Vol] NOT REPORTED [place] Platelets (Bld) [#/Vol] 250 10*3/uL [place] RBC (Bld) [#/Vol] 4.48 10*6/uL 4 - 5.2 m/uL [place] RBC morphology finding Nom (Bld) NOT REPORTED [place] Segmented neutrophils/100 WBC (Bld) 78 % High 47 - 75 % [place] Segs Absolute 9.30 High [place] WBC (Bld) [#/Vol] NOT REPORTED per 100 WBC [place] WBC (Bld) [#/Vol] 12.0 10*3/uL [place] WBC Morphology NOT REPORTED [place] Comprehensive Metabolic Pane l w/ Reflex to MGon 11-16-2019 Albumin [Mass/Vol] 4.4 g/dL 3.5 - 5.2 g/dL [place] Albumin/Globulin [Mass ratio] NOT REPORTED [place] ALP [Catalytic activity/Vol] 82 U/L 35 - 104 U/L [place] ALT [Catalytic activity/Vol] 7 U/L 5 - 33 U/L [place] Anion gap [Moles/Vol] 11 mmol/L 9 - 17 mmol/L [place] AST [Catalytic activity/Vol] 12 U/L <32 [place] Bilirubin Ql (U) 0.53 mg/dL 0.3 - 1.2 mg/dL [place] Bun/Cre Ratio 12 [place] Calcium [Mass/Vol] 10.2 mg/dL 8.6 - 10. 4 mg/dL [place] Chloride [Moles/Vol] 100 mmol/L 98 - 10 7 mmol/L [place] CO2 [Moles/Vol] 25 mmol/L 20 - 31 mmol/L [place] Creatinine [Mass/Vol] 0.83 mg/dL 0.5 - 0.9 mg/dL [place] GFR >60 >60 mL/min [place] GFR Non- >60 >60 mL/min [place] GFR/1.73 sq M predicted among non-blacks MDRD (S/P/Bld) [Vol rate/Area] [place] Comment on above: Average GFR for 20-2 9 years old: 116 mL/min/1.73sq m Chronic Kidney Disease: <60 mL/min/1.73sq m Kidney failure: <15 mL/min/1.73sq m eGFR calculated using average adult body mass. Additional eGFR calculator available at: http://www.thereNow.Planearth NET/multiple_crcl_2012.htm GFR/1.73 sq M predicted among non-blacks MDRD (S/P/Bld) [Vol rate/Area] NOT REPORTED [place] Glucose [Mass/Vol] 106 mg/dL High 70 - 99 mg/dL [place] Interpretation and review of laboratory results Abnormal [place] Potassium [Moles/Vol] 4.0 mmol/L 3.7 - 5.3 mmol/L [place] Protein [Mass/Vol] 8.5 g/dL High 6.4 - 8.3 g/dL [place] Sodium [Moles/Vol] 136 mmol/L 135 - 144 mmol/L [place] Urea nitrogen [Mass/Vol] 10 mg/dL 6 - 20 mg/dL [place] HCG Qualitative, Serumon hCG Qual Negative NEGATIVE [place] Comment on above: Specimens with hCG l evels near the threshold of the test (25 mIU/mL) may give a negative or indeterminate result. In such cases, another test should be performed with a new specimen in 48-72 hours. If early is suspected clinically in this setting, correlation with quantitative serum b-hCG level is suggested. [facility] the use of plasma for this test. This has not been cleared or approved by the U.S. Food and Drug Administration. The FDA has determined that such clearance is not necessary. Lactic Acidon 11-16-2019 Lactate [Moles/Vol] 0.6 mmol/L 0.5 - 2. 2 mmol/L [place] Lipaseon 11-16-2019 Lipase [Catalytic activity/Vol] 13 U/L 13 - 60 U/L [place] Otheron 11-16-2019 Immature granulocytes (Bld) [#/Vol] NOT REPORTED 0 % [place] US NON OB TRANSVAGINALon 1. Minor free fluid in the cul-de-sac is seen favoring the right side. 2. Unremarkable appearing uterus and endometrium. 3. Both ovaries show multiple simple appearing follicles with the largest measuring in the area of 1 cm each. There is no other ovarian or pelvic pathology appreciated. [place] Abiodun, Mhpn Incoming Radiant Results From [employer] - 11/16/2019 12:43 PM EDT EXAM: US [...] no other ovarian or pelvic pathology appreciated. [place] EXAM: US NON OB TRANSVAGINAL REASON [...] measuring 0.9 cm. No torsion is seen. [place] Basic Metabolic Panelon 04-2 Anion gap [Moles/Vol] 10 mmol/L 9 - 17 mmol/L [place] Bun/Cre Ratio 14 [place] Calcium [Mass/Vol] 9.1 mg/dL 8.6 - 10. 4 mg/dL [place] Chloride [Moles/Vol] 105 mmol/L 98 - 10 7 mmol/L [place] CO2 [Moles/Vol] 24 mmol/L 20 - 31 mmol/L [place] Creatinine [Mass/Vol] 0.87 mg/dL 0.5 - 0.9 mg/dL [place] GFR >60 >60 mL/min [place] GFR Non- >60 >60 mL/min [place] Glucose [Mass/Vol] 91 mg/dL 70 - 99 mg/dL [place] Potassium [Moles/Vol] 4.4 mmol/L 3.7 - 5.3 mmol/L [place] Sodium [Moles/Vol] 139 mmol/L 135 - 144 mmol/L [place] Urea nitrogen [Mass/Vol] 12 mg/dL 6 - 20 mg/dL [place] CBCon 11-08-2019 Erythrocyte distribution width (RBC) [Ratio] 13.0 % 11.8 - 14.4 % [place] Hematocrit (Bld) [Volume fraction] 43.9 % 36.3 - 47.1 % [place] Hemoglobin (Bld) [Mass/Vol] 14.4 g/dL 11.9 - 15.1 g/dL [place] MCH (RBC) [Entitic mass] 30.9 pg 25.2 - 33.5 pg [place] MCHC (RBC) [Mass/Vol] 32.8 g/dL 28.4 - 34.8 g/dL [place] MCV (RBC) [Entitic vol] 94.2 fL 82.6 - 102.9 fL [place] Platelet mean volume (Bld) [Entitic vol] 11.8 fL 8.1 - 13.5 fL [place] Platelets (Bld) [#/Vol] 205 10*3/uL [place] RBC (Bld) [#/Vol] 4.66 10*6/uL 3.95 - 5.1 1 m/uL [place] WBC (Bld) [#/Vol] 0.0 10*3/uL 0.0 per 10 0 WBC [place] WBC (Bld) [#/Vol] 10.0 10*3/uL [place] HCG Qualitative, Serumon hCG Qual Negative NEGATIVE [place] Comment on above: Specimens with hCG l evels near the threshold of the test (25 mIU/mL) may give a negative or indeterminate result. In such cases, another test should be performed with a new specimen in 48-72 hours. If early is suspected clinically in this setting, correlation with quantitative serum b-hCG level is suggested. [facility] has confirmed the use of plasma for this test. This has not been cleared or approved by the U.S. Food and Drug Administration. The FDA has determined that such clearance is not necessary. HIV Screenon 11-08-2019 HIV Ag/Ab NONREACTIVE NONREACTIVE [place] Comment on above: No laboratory eviden ce of HIV infection. If acute HIV infection is suspected, consider testing for HIV-1 RNA. Hepatitis Panel, Acuteon HAV IgM IA Qn (S) NONREACTIVE NONREACTIVE [place] Hep B Core Ab, IgM NONREACTIVE NONREACTIVE [place] Hepatitis B Surface Ag NONREACTIVE NONREACTIVE [place] Hepatitis C Ab NONREACTIVE NONREACTIVE [place] Comment on above: The hepatitis C [...] predicted among non-blacks MDRD (S/P/Bld) [Vol rate/Area] [place] Comment on above: Stage 1: Some [...] body mass. Additional eGFR calculator available at: http://www.[employer]Gab/multiple_crcl_2012.htm Microscopic Urinalysison Amorphous, UA NOT REPORTED None [employer] Work Phone: Bacteria, UA NOT REPORTED None [employer] Work Phone: Casts UA NOT REPORTED /LPF [employer] Work Phone: Crystals UA NOT REPORTED None /HPF [employer] Work Phone: Epithelial Cells UA NOT REPORTED /HPF [facility] Work Phone: Mucus, UA NOT REPORTED None [employer] Work Phone: Other Observations UA NOT REPORTED NOT REQ. [employer] Work Phone: RBC (U) [#/Vol] NOT REPORTED [employer] Work Phone: Renal Epithelial, Urine NOT REPORTED 0 /HPF [employer] Work Phone: Trichomonas, UA NOT REPORTED None [employer] Work Phone: WBC, UA 2 TO 5 0 /HPF [employer] Work Phone: Yeast, UA NOT REPORTED None [employer] Work Phone: - [employer] Work Phone: , Urineon 0 Beta HCG ( test) Ql (U) Negative NEGATIVE [employer] Work Phone: Urinalysison 08-24-2019 Bilirubin Urine Negative NEGATIVE [employer] Work Phone: Color, UA YELLOW YELLOW [employer] Work Phone: Glucose, Ur Negative NEGATIVE [employer] Work Phone: Interpretation and review of laboratory results Abnormal [employer] Phone: Ketones Ql (U) Negative NEGATIVE [employer] Phone: Leukocyte esterase Test strip Ql (U) 1+ Abnormal NEGATIVE [employer] Phone: Nitrite, Urine Negative NEGATIVE [employer] Phone: pH, UA 7.0 [employer] Phone: Protein (U) [Mass/Vol] Negative NEGATIVE [employer] Phone: Specific [place], UA 1.010 [employer] Phone: Turbidity UA CLEAR CLEAR [employer] Phone: Urinalysis Comments [employer] Phone: Urine Hgb Negative NEGATIVE [employer] Phone: Urobilinogen, Urine Normal Normal [employer] Phone: CT Head WO Contraston 2018 No acute intracrania l [place] CT OF T HE HEAD [...] of the visualized skull or soft tissues. [place] Abiodun, Mhpn Incoming Radiant Results From [facility] - 05/18/2019 9:40 PM EDT EXAMINATION: CT [...] soft tissues. IMPRESSION: No acute intracranial abnormality. [facility] [place] HCG,Urineon 10-17-2018 HCG.beta subunit ( test) Ql (U) Negative Normal Negative [facility] Comment on above: Result Comment: PERF ORMED BY: [place] [id number] PATHOLOGIST CLAIM AGENT RAQUEL WATSON M.D. Performed By: #### U HCG #### [address] Antwon 10-17-2018 L ----- Specimen: [id number] Received: 10/17/18 Status: REINALDO Agustin Num: [id number] Spec Type: Surgical Subm Dr: Harshal Car Jr, DO Tissues: A Esophagus Biopsy (DISTAL ESOPHAGUS) Procedures: HE Stain/2, Gross/Micro L4 Patient Age/Sex Location Account Attending Physician Christine Salcido / [id number] Harshal Car Jr, SPEC NUM: [id number] RECD: 10/17/18 STATUS: REINALDO AGUSTIN NUM: [id number] [place]: 10/17/18 DR: Harshal Car Jr, DO ENTERED: 10/17/18 S[place]MA [place]ILLA: SPEC TYPE: Surgical DEPT: S ORDERED: HE Stain/2, [...] and PAS-positive. Microscopic examination confirms the diagnosis. [id number], [id number] A. Esophagus Bx - DISTAL ESOPHAGUS Specimen: [id number] Received: 10/17/18 Status: REINALDO Agustin Num: [id number] Spec Type: Surgical Subm Dr: Harshal Car Jr, DO Tissues: A Esophagus Biopsy (DISTAL ESOPHAGUS) Procedures: HE Stain/2, Gross/Micro L4 Patient: Christine Salcido [id number] (Continued) Signed (signature on file) Angie Barr MD 10/18/18 1520 [facility] [place] CBC AUTO DIFFon 08-07-2018 Basophils #/vol (Bld) 0.1 103/ul Normal 0.0-0.1 [facility] Comment on above: Performed By: #### C BC #### [facility] [address] [place] [address] Lm Minnie Basophils/100 WBC (Bld) 0.9 % Normal 0.2-2.0 [facility] Comment on above: Performed By: #### C BC #### [facility] [address] [place] [address] Lm Minnie Eosinophils #/vol (Bld) 0.1 103/ul Normal 0.0-0.7 [facility] Comment on above: Performed By: #### C BC #### [facility] [address] [place] [address] Lm Minnie Eosinophils/100 WBC (Bld) 1.0 % Normal 0.9-7.0 [facility] Comment on above: Performed By: #### C BC #### [facility] [address] [place] [address] Lm Minnie Erythrocyte distribution width Ratio (RBC) 11.9 % Normal 11.0-15.0 [facility] Comment on above: Performed By: #### C BC #### [facility] [address] [place] [address] Lm Minnie Hematocrit Volume Fraction (Bld) 44.4 % Normal 36.0-48.0 [facility] Comment on above: Performed By: #### C BC #### [facility] [address] [place], [place] [address] Lm Minnie Hemoglobin mass conc (Bld) 15.5 g/dL Normal 12.0-16.0 [facility] Comment on above: Performed By: #### C BC #### [facility] [address] [place] [address] Lm Hartman IG # 0.05 10e3/ul Critically high 0.00-0.03 [facility] Comment on above: Performed By: #### C BC #### [facility] [address] [place] [address] Lm Hartman IG % 0.6 % Critically high 0.0-0.5 [facility] Comment on above: Performed By: #### C BC #### [facility] [address] [place] [address] Lm Hartman Lymphocytes #/vol (Bld) 2.6 103/ul Normal 1.2-3.8 [facility] Comment on above: Performed By: #### C BC #### [facility] [address] [place] [address] Lm Hartman Lymphocytes/100 WBC (Bld) 28.9 % Normal 20.5-60.0 [facility] Comment on above: Performed By: #### C BC #### [facility] [address] [place] [address] Lm Hartman MANUAL DIFF REQ NO Normal [facility] Comment on above: Performed By: #### C BC #### [facility] [address] [place] [address] Lm Hartman MCH Entitic mass (RBC) 31.9 pg Normal 26.7-34.0 [facility] Comment on above: Performed By: #### C BC #### [facility] [address] [place] [address] Lm Hartman MCHC mass conc (RBC) 34.9 g/dL Normal 29.9-35.2 [facility] Comment on above: Performed By: #### C BC #### [facility] [address] [place] [address] Lm Hartman MCV Entitic volume (RBC) 91.4 fL Normal 81.0-99.0 [facility] Comment on above: Performed By: #### C BC #### [facility] [address] [place], [place] [address] Lm Minnie Monocytes #/vol (Bld) 0.4 103/ul Normal 0.3-0.8 [facility] Comment on above: Performed By: #### C BC #### [facility] [address] [place], [place] [address] Lm Minnie Monocytes/100 WBC (Bld) 3.9 % Normal 1.7-12.0 [facility] Comment on above: Performed By: #### C BC #### [facility] [address] [place], [place] [address] Lm Minnie Neutrophils #/vol (Bld) 5.9 103/ul Normal 1.4-6.5 [facility] Comment on above: Performed By: #### C BC #### [facility] [address] [place], [place] [address] Lm Minnie Neutrophils/100 WBC (Bld) 64.7 % Normal 43.0-75.0 [facility] Comment on above: Performed By: #### C BC #### [facility] [address] [place], [place] [address] Lm Minnie Platelet mean volume Entitic volume (Bld) 11.3 fL Normal 9.5-13.5 [facility] Comment on above: Performed By: #### C BC #### [facility] [address] [place], [place] [address] Lm Minnie Platelets #/vol (Bld) 240 103/ul Normal 150-450 [facility] Comment on above: Performed By: #### C BC #### [facility] [address] [place], [place] [address] Lm Minnie RBC #/vol (Bld) 4.86 106/ul Normal 4.20-5.40 [facility] Comment on above: Performed By: #### C BC #### [facility] [address] [place], [place] [address] Lm Minnie WBC #/vol (Bld) 9.0 103/ul Normal 4.0-11.0 [facility] Comment on above: Performed By: #### C BC #### [facility] [address] [place], [place] [address] Lm Hartman PROF 14(COMP METB)on 019 Albumin mass conc 4.8 g/dL Normal 3.5-5.0 [facility] Comment on above: Performed By: #### C MP, TSH #### [facility] [address] [place], [place] [address] Lm Minnie Albumin/Globulin mass ratio 1.2 {ratio} Normal [facility] Comment on above: Performed By: #### C MP, TSH #### [facility] [address] [place] [address] Lm Minnie ALP enzyme act/vol 87 U/L Normal 38-126 [facility] Comment on above: Performed By: #### C MP, TSH #### [facility] [address] [place] [address] Lm Minnie ALT enzyme act/vol 18 U/L Normal 9-52 [facility] Comment on above: Performed By: #### C MP, TSH #### [facility] [address] [place], [place] [address] Lm Minnie Anion gap molar conc 13.2 mmol/L Normal [facility] Comment on above: Performed By: #### C MP, TSH #### [facility] [address] [place], [place] [address] Lm Minnie AST enzyme act/vol 13 U/L Critically low 14-36 [facility] Comment on above: Performed By: #### C MP, TSH #### [facility] [address] [place], [place] [address] Lm Minnie Bilirubin Ql (U) 0.4 mg/dL Normal 0.2-1.3 [facility] Comment on above: Performed By: #### C MP, TSH #### [facility] [address] [place] [address] Lm Minnie Calcium mass conc 9.7 mg/dL Normal 8.4-10.2 [facility] Comment on above: Performed By: #### C MP, TSH #### [facility] [address] [place] [address] Lm Minnie Chloride molar conc 102 mmol/L Normal 98-107 [facility] Comment on above: Performed By: #### C MP, TSH #### [facility] [address] [place] [address] Lm Minnie CO2 molar conc 30.1 mmol/L Critically high 22.0-30.0 [facility] Comment on above: Performed By: #### C MP, TSH #### [facility] [address] [place] [address] Lm Minnie Creatinine mass conc 0.92 mg/dL Normal 0.52-1.04 [facility] Comment on above: Performed By: #### C MP, TSH #### [facility] [address] [place] [address] Lm Minnie EGFR-AF [place]IZ[place] >60 Normal >=60 [facility] Comment on above: Performed By: #### C MP, TSH #### [facility] [address] [place] [address] Lm Minnie EGFR-NON AF [place]IZ[place] >60 Normal >=60 [facility] Comment on above: Performed By: #### C MP, TSH #### [facility] [address] [place] [address] Lm Minnie Globulin mass conc (S) 3.9 g/dL Normal [facility] Comment on above: Performed By: #### C MP, TSH #### [facility] [address] [place] [address] Lm Minnie Glucose mass conc 141 mg/dL Critically high 74-106 [facility] Comment on above: Performed By: #### C MP, TSH #### [facility] [address] [place] [address] Lm Minnie Potassium molar conc 4.3 mmol/L Normal 3.4-5.0 [facility] Comment on above: Performed By: #### C MP, TSH #### [facility] [address] [place] [address] Lm Minnie Protein mass conc 8.7 g/dL Critically high 6.1-8.2 [facility] Comment on above: Performed By: #### C MP, TSH #### [facility] [address] [place] [address] Lm Hartman Sodium molar conc 141 mmol/L Normal 137-145 [facility] Comment on above: Performed By: #### C MP, TSH #### [facility] [address] [place], [place] [address] Lmgerard Hartman Urea nitrogen mass conc 17.0 mg/dL Normal 7.0-17.0 [facility] Comment on above: Performed By: #### C MP, TSH #### [facility] [address] [place] [address] Lm Hartman Urea nitrogen/Creatinine mass ratio 18.5 mg/mg Normal [facility] Comment on above: Performed By: #### C MP, TSH #### [facility] [address] [place] [address] Lm Hartman TSHon 08-07-2018 Thyrotropin Qn 1.384 uIU/mL Normal 0.470-4.680 [facility] Comment on above: Performed By: #### C MP, TSH #### [facility] [address] [place] [address] Lmgerard Hartman Thyrotropin Qn SEE BELOW Normal [facility] Comment on above: Result Comment: <0.3 4 UIU/ml HYPERTHYROID 0.34-5.60 UIU/ml EUTHYROID >5.60 UIU/ml HYPOTHYROID Performed By: #### C MP, TSH #### [facility] [address] [place], [place] [address] Lm Hartman Vital Signs Date Time Vital Sign Value Performing Clinician Facility 11-29-2023 14:30-0400 Body temperature 98.6 [degF] [facility] [address] [place] [address] 11-29-2023 14:30-0400 Diastolic blood pressure 70 mm[Hg] [facility] [address] [place] [address] 11-29-2023 14:30-0400 Heart rate 78 /min [facility] [address] [place] [address] 11-29-2023 14:30-0400 Respiratory rate 16 /min [facility] 3 [facility] 11-29-2023 14:30-0400 SaO2% (BldA) [Mass fraction] 93 % [facility] 3 [facility] [facility] 11-29-2023 14:30-0400 Systolic blood pressure 102 mm[Hg] [facility] 3 [facility] 11-01-2023 13:53-0400 Body temperature 98.6 [degF] [facility] 11-01-2023 13:53-0400 Diastolic blood pressure 63 mm[Hg] [facility] 11-01-2023 13:53-0400 Heart rate 83 /min [facility] 3 [facility] 11-01-2023 13:53-0400 Systolic blood pressure 97 mm[Hg] [facility] [address] [place] [address] [facility] 09-26-2023 14:32-0400 Body temperature 97.81 [degF] [facility] [address] [place] [address] [employer] 09-26-2023 14:32-0400 Diastolic blood pressure 67 mm[Hg] [facility] 3 [facility] 09-26-2023 14:32-0400 Heart rate 84 /min [facility] [address] [place] [address] [employer] 09-26-2023 14:32-0400 Respiratory rate 16 /min [facility] [address] [place] [address] [facility] 09-26-2023 14:32-0400 SaO2% (BldA) [Mass fraction] 97 % [facility] 09-26-2023 14:32-0400 Systolic blood pressure 103 mm[Hg] [facility] 3 [facility] 05-11-2022 08:36-0400 Body height 157.5 cm Radha DAVEY Work Phone: [employer] 05-11-2022 08:36-0400 Body mass index (BMI) [Ratio] 20.67 kg/m2 Radha DAVEY Work Phone: [employer] 05-11-2022 08:36-0400 Body temperature 98.29 [degF] Radha Benavides MENAGERIE CARETAKER-[employer]RIMPING BOAT CAPTAIN Work Phone: [facility] 05-11-2022 08:36-0400 Body weight 51.26 kg Radha Loerassler MENAGERIE CARETAKER-[employer]RIMPING [employer] CAPTAIN Work Phone: [facility] 05-11-2022 08:36-0400 Diastolic blood pressure 70 mm[Hg] Rahda Benavides APRN-SHRIMPING BOAT CAPTAIN Work Phone: [facility] 05-11-2022 08:36-0400 Heart rate 86 /min Radha Loerassler MENAGERIE CARETAKER-[employer]ING [employer] CAPTAIN Work Phone: [facility] 05-11-2022 08:36-0400 Respiratory rate 18 /min Radha Loerassler MENAGERIE CARETAKER-[employer]RIMPING [employer] CAPTAIN Work Phone: [facility] 05-11-2022 08:36-0400 SaO2% (BldA) [Mass fraction] 98 % Radha Benavides MENAGERIE CARETAKER-[employer]RIMPING [employer] CAPTAIN Work Phone: [facility] 05-11-2022 08:36-0400 Systolic blood pressure 102 mm[Hg] Radha Loerassler MENAGERIE CARETAKER-[employer]ING [employer] CAPTAIN Work Phone: [facility] 03-11-2022 09:56-0400 Body height 157.5 cm Radha Benavides MENAGERIE CARETAKER-[employer]RIMPING [employer] CAPTAIN Work Phone: [facility] 03-11-2022 09:56-0400 Body mass index (BMI) [Ratio] 22.24 kg/m2 Radha Loerassler MENAGERIE CARETAKER-[employer]RIMPING [employer] CAPTAIN Work Phone: [facility] 03-11-2022 09:56-0400 Body weight 55.16 kg Radha Benavides MENAGERIE CARETAKER-[employer]RIMPING [employer] CAPTAIN Work Phone: [facility] 03-11-2022 09:56-0400 Diastolic blood pressure 78 mm[Hg] Radha Benavides MENAGERIE CARETAKER-[employer]RIMPING [employer] CAPTAIN Work Phone: [facility] 03-11-2022 09:56-0400 Heart rate 92 /min Radha Benavides MENAGERIE CARETAKER-[employer]RIMPING [employer] CAPTAIN Work Phone: [facility] 03-11-2022 09:56-0400 SaO2% (BldA) [Mass fraction] 97 % Radha Loerassler MENAGERIE CARETAKER-[employer]RIMPING [employer] CAPTAIN Work Phone: [facility] 03-11-2022 09:56-0400 Systolic blood pressure 122 mm[Hg] Radha Benavides MENAGERIE CARETAKER-[employer]RIMPING [employer] CAPTAIN Work Phone: [facility] 02-08-2022 08:55-0400 Body height 157.5 cm Radha Benavides MENAGERIE CARETAKER-[employer]RIMPING [employer] CAPTAIN Work Phone: [facility] 02-08-2022 08:55-0400 Body mass index (BMI) [Ratio] 21.4 kg/m2 Radha Benavides MENAGERIE CARETAKER-[employer]RIMPING [employer] CAPTAIN Work Phone: [facility] 02-08-2022 08:55-0400 Body weight 53.07 kg Radha Benavides MENAGERIE CARETAKER-[employer]RIMPING [employer] CAPTAIN Work Phone: [facility] 02-08-2022 08:55-0400 Diastolic blood pressure 60 mm[Hg] Radha Loerassler MENAGERIE CARETAKER-[employer]RIMPING [employer] CAPTAIN Work Phone: [facility] 02-08-2022 08:55-0400 Heart rate 84 /min Radha Loerassler MENAGERIE CARETAKER-[employer]RIMPING [employer] CAPTAIN Work Phone: [facility] 02-08-2022 08:55-0400 SaO2% (BldA) [Mass fraction] 98 % Radha Benavides MENAGERIE CARETAKER-[employer]RIMPING [employer] CAPTAIN Work Phone: [facility] 02-08-2022 08:55-0400 Systolic blood pressure 104 mm[Hg] Radha Benavides MENAGERIE CARETAKER-[employer]RIMPING [employer] CAPTAIN Work Phone: [facility] 01-06-2022 08:45-0400 Body height 157.5 cm Radha Benavides MENAGERIE CARETAKER-[employer]RIMPING [employer] CAPTAIN Work Phone: [facility] 01-06-2022 08:45-0400 Body mass index (BMI) [Ratio] 21.4 kg/m2 Radha Benavides MENAGERIE CARETAKER-[employer]RIMPING [employer] CAPTAIN Work Phone: [facility] 01-06-2022 08:45-0400 Body weight 53.07 kg Radha Loerassler MENAGERIE CARETAKER-[employer]RIMPING [employer] CAPTAIN Work Phone: [facility] 01-06-2022 08:45-0400 Diastolic blood pressure 72 mm[Hg] Radha Benavides MENAGERIE CARETAKER-[employer]RIMPING [employer] CAPTAIN Work Phone: [facility] 01-06-2022 08:45-0400 Heart rate 68 /min Radha Loerassler MENAGERIE CARETAKER-[employer]RIMPING [employer] CAPTAIN Work Phone: [facility] 01-06-2022 08:45-0400 SaO2% (BldA) [Mass fraction] 99 % Radha Loerassler MENAGERIE CARETAKER-[employer]RIMPING [employer] CAPTAIN Work Phone: [facility] 01-06-2022 08:45-0400 Systolic blood pressure 116 mm[Hg] Radha Benavides MENAGERIE CARETAKER-[employer]RIMPING [employer] CAPTAIN Work Phone: [facility] 12-08-2021 12:58-0400 Body height 157.5 cm Radha Loerassler MENAGERIE CARETAKER-[employer]RIMPING [employer] CAPTAIN Work Phone: [facility] 12-08-2021 12:58-0400 Body mass index (BMI) [Ratio] 21.14 kg/m2 Radha Loerassler MENAGERIE CARETAKER-[employer]RIMPING [employer] CAPTAIN Work Phone: [facility] 12-08-2021 12:58-0400 Body temperature 98.2 [degF] Radha Benavides APRN-SHRIMPING BO[employer] CAPTAIN Work Phone: [facility] 12-08-2021 12:58-0400 Body weight 52.44 kg Radha Benavides MENAGERIE CARETAKER-[employer]RIMPING [employer] CAPTAIN Work Phone: [facility] 12-08-2021 12:58-0400 Diastolic blood pressure 82 mm[Hg] Radha Benavides APRN-SHRIMPING BO[employer] CAPTAIN Work Phone: [facility] 12-08-2021 12:58-0400 Heart rate 66 /min Radha Benavides APRN-SHRIMPING BO[employer] CAPTAIN Work Phone: [facility] 12-08-2021 12:58-0400 SaO2% (BldA) [Mass fraction] 99 % Radha Benavides MENAGERIE CARETAKER-SHRIMPING [employer] CAPTAIN Work Phone: [facility] 12-08-2021 12:58-0400 Systolic blood pressure 128 mm[Hg] Radha Loerassler MENAGERIE CARETAKER-SHRIMPING [employer] CAPTAIN Work Phone: [employer] [facility] 11-10-2021 13:22-0400 Body height 157.5 cm Radha Loerassler MENAGERIE CARETAKER-[employer]RIMPING [employer] CAPTAIN Work Phone: [employer] 11-10-2021 13:22-0400 Body mass index (BMI) [Ratio] 20.85 kg/m2 Radha Loerassratna EUCEDAN-SHRIMPING BOAT CAPTAIN Work Phone: [employer] 11-10-2021 13:22-0400 Body weight 51.71 kg Radha Loerassler MENAGERIE CARETAKER-SHRIMPING [employer] CAPTAIN Work Phone: [employer] [facility] 11-10-2021 13:22-0400 Diastolic blood pressure 74 mm[Hg] Radha Loerassler MENAGERIE CARETAKER-[employer]RIMPING [employer] CAPTAIN Work Phone: [employer] 11-10-2021 13:22-0400 Heart rate 107 /min Radha Benavides MENAGERIE CARETAKER-[employer]RIMPING [employer] CAPTAIN Work Phone: [employer] [facility] 11-10-2021 13:22-0400 SaO2% (BldA) [Mass fraction] 99 % Radha Benavides MENAGERIE CARETAKER-[employer]RIMPING [employer] CAPTAIN Work Phone: [employer] 11-10-2021 13:22-0400 Systolic blood pressure 118 mm[Hg] Radha Loerassler MENAGERIE CARETAKER-[employer]RIMPING [employer] CAPTAIN Work Phone: [facility] 10-15-2021 21:17-0400 Diastolic blood pressure 68 mm[Hg] Karlee Pool MENAGERIE CARETAKER - CNM Work Phone: [facility] [employer] 10-15-2021 21:17-0400 Heart rate 81 /min Karlee Pool MENAGERIE CARETAKER - CNM Work Phone: [facility] [employer] 10-15-2021 21:17-0400 Systolic blood pressure 112 mm[Hg] Karlee Pool MENAGERIE CARETAKER - CNM Work Phone: [facility] 10-15-2021 20:30-0400 Body temperature 98.01 [degF] Karlee Pool MENAGERIE CARETAKER - CNM Work Phone: [facility] 10-15-2021 20:30-0400 Respiratory rate 16 /min Karlee Pool MENAGERIE CARETAKER - CNM [facility] 10-05-2021 14:50-0400 Body temperature 98.29 [degF] Karlee Pool MENAGERIE CARETAKER - CNM Work Phone: [facility] 10-05-2021 14:50-0400 Diastolic blood pressure 72 mm[Hg] Karlee Pool MENAGERIE CARETAKER - CNM [facility] 10-05-2021 14:50-0400 Heart rate 90 /min Karlee Pool MENAGERIE CARETAKER - CNM Work Phone[facility] 10-05-2021 14:50-0400 Respiratory rate 16 /min Karlee Pool MENAGERIE CARETAKER - CNM Work Phone: [facility] 10-05-2021 14:50-0400 Systolic blood pressure 123 mm[Hg] Karlee Pool MENAGERIE CARETAKER - CNM Work Phone: [facility] 09-14-2021 13:12-0500 Body height 157.5 cm Radha Benavides APRN-SHRIMPING BO[employer] CAPTAIN Work Phone: [facility] 09-14-2021 13:12-0500 Body mass index (BMI) [Ratio] 22.86 kg/m2 Radha Benavides APRN-SHRIMPING BO[employer] CAPTAIN Work Phone: [facility] 09-14-2021 13:12-0500 Body temperature 96.91 [degF] Radha Benavides APRN-SHRIMPING BO[employer] CAPTAIN Work Phone: [facility] 09-14-2021 13:12-0500 Body weight 56.7 kg Radha Benavides APRN-SHRIMPING BO[employer] CAPTAIN Work Phone: [facility] 09-14-2021 13:12-0500 Diastolic blood pressure 70 mm[Hg] Radha Kennedy MENAGERIE CARETAKER-SHRIMPING BO[employer] CAPTAIN Work Phone: [facility] [employer] [facility] 09-14-2021 13:12-0500 Heart rate 97 /min Radha Kennedy MENAGERIE CARETAKER-SHRIMPING [employer] CAPTAIN Work Phone: [facility] 09-14-2021 13:12-0500 SaO2% (BldA) [Mass fraction] 97 % Radha Kennedy MENAGERIE CARETAKER-SHRIMPING BO[employer] CAPTAIN Work Phone: [facility] 09-14-2021 13:12-0500 Systolic blood pressure 118 mm[Hg] Radha Loerassler MENAGERIE CARETAKER-SHRIMPING BO[employer] CAPTAIN Work Phone: [facility] 06-16-2021 14:44-0500 Body height 157.5 cm Radha Kennedy EUCEDAN-SHRIMPING [employer] CAPTAIN Work Phone: [facility] 06-16-2021 14:44-0500 Body mass index (BMI) [Ratio] 21.36 kg/m2 Radha Kennedy MENAGERIE CARETAKER-[employer]RIMPING [employer] CAPTAIN Work Phone: [facility] 06-16-2021 14:44-0500 Body temperature 97.5 [degF] Radha Kennedy [employer]RIMPING [employer] CAPTAIN Work Phone: [facility] 06-16-2021 14:44-0500 Body weight 52.98 kg Radha Kennedy MENAGERIE CARETAKER-SHRIMPING BO[employer] CAPTAIN Work Phone: [facility] 06-16-2021 14:44-0500 Diastolic blood pressure 62 mm[Hg] Radha Benavides MENAGERIE CARETAKER-SHRIMPING BO[employer] CAPTAIN [facility] 06-16-2021 14:44-0500 Heart rate 89 /min Radha Loerassler MENAGERIE CARETAKER-[employer]RIMPING [employer] CAPTAIN Work Phone: [facility] 06-16-2021 14:44-0500 SaO2% (BldA) [Mass fraction] 99 % Radha Loerassler MENAGERIE CARETAKER-SHRIMPING BO[employer] CAPTAIN Work Phone: [facility] 06-16-2021 14:44-0500 Systolic blood pressure 102 mm[Hg] Radha Benavides MENAGERIE CARETAKER-SHRIMPING BO[employer] CAPTAIN Work Phone: [employer] 06-12-2021 20:27-0500 Body mass index (BMI) [Ratio] 21.03 kg/m2 Juan Richards MD Work Phone: [facility] 06-12-2021 20:27-0500 Body temperature 98.29 [degF] Juan Richards MD Work Phone: [facility] 06-12-2021 20:27-0500 Body weight 52.16 kg Juan Richards MD Work Phone: [facility] 06-12-2021 20:27-0500 Diastolic blood pressure 59 mm[Hg] Juan Richards MD Work Phone: [facility] 06-12-2021 20:27-0500 Heart rate 82 /min Juan Richards MD Work Phone: [facility] 06-12-2021 20:27-0500 Respiratory rate 18 /min Juan Richards MD Work Phone: [facility] 06-12-2021 20:27-0500 SaO2% (BldA) [Mass fraction] 100 % Juan Richards MD Work Phone: [facility] 06-12-2021 20:27-0500 Systolic blood pressure 92 mm[Hg] Juan Richards MD Work Phone: [facility] 05-24-2021 13:58-0500 Body mass index (BMI) [Ratio] 19.81 kg/m2 Sarah Justice MD Work Phone: [facility] 05-24-2021 13:58-0500 Body temperature 98.6 [degF] Sarah Justice MD Work Phone: [facility] 05-24-2021 13:58-0500 Body weight 49.13 kg Sarah Justice MD Work Phone: [facility] 05-24-2021 13:58-0500 Diastolic blood pressure 61 mm[Hg] Sarah Justice MD Work Phone: [facility] 05-24-2021 13:58-0500 Heart rate 92 /min Sarah Justice MD Work Phone: [facility] 05-24-2021 13:58-0500 Respiratory rate 16 /min Sarah Justice MD Work Phone: [facility] 05-24-2021 13:58-0500 SaO2% (BldA) [Mass fraction] 100 % Sarah Justice MD Work Phone: [facility] 05-24-2021 13:58-0500 Systolic blood pressure 111 mm[Hg] Sarah Justice MD Work Phone: [facility] 04-08-2021 03:08-0400 Body mass index (BMI) [Ratio] 19.94 kg/m2 Juan Richards MD Work Phone: [facility] Work Phone: 04-08-2021 03:08-0400 Body temperature 99.19 [degF] Juan Richards MD Work Phone: [facility] Work Phone: 04-08-2021 03:08-0400 Body weight 49.44 kg Juan Richards MD Work Phone: [facility] Work Phone: 04-08-2021 03:08-0400 Diastolic blood pressure 72 mm[Hg] Juan Richards MD Work Phone: [facility] Work Phone: 04-08-2021 03:08-0400 Heart rate 111 /min Juan Richards MD Work Phone: [facility] Work Phone: 04-08-2021 03:08-0400 Respiratory rate 16 /min Juan Richards MD Work Phone: [facility] Work Phone: 04-08-2021 03:08-0400 SaO2% (BldA) [Mass fraction] 96 % Juan Richards MD Work Phone: [facility] Work Phone: 04-08-2021 03:08-0400 Systolic blood pressure 140 mm[Hg] Juan Richards MD Work Phone: [facility] Work Phone: 03-25-2021 18:36-0400 Body height 157.5 cm Martha Lara DO Work Phone: [facility] 03-25-2021 18:36-0400 Body mass index (BMI) [Ratio] 20.85 kg/m2 Martha Lara DO Work Phone: [facility] 03-25-2021 18:36-0400 Body temperature 99.81 [degF] Martha Lara DO Work Phone: [facility] 03-25-2021 18:36-0400 Body weight 51.71 kg Martha Lara DO Work Phone: [facility] 03-25-2021 18:36-0400 Diastolic blood pressure 66 mm[Hg] Martha Lara DO Work Phone: [facility] 03-25-2021 18:36-0400 Heart rate 65 /min Martha Lara DO Work Phone: [facility] 03-25-2021 18:36-0400 Respiratory rate 18 /min Martha Lara DO Work Phone: [facility] 03-25-2021 18:36-0400 SaO2% (BldA) [Mass fraction] 99 % Martha Lara DO Work Phone: [facility] 03-25-2021 18:36-0400 Systolic blood pressure 103 mm[Hg] Martha Lara DO Work Phone: [facility] 03-03-2021 08:12-0400 Body height 157.5 cm Radha DAVEY Work Phone: [facility] 03-03-2021 08:12-0400 Body mass index (BMI) [Ratio] 21.22 kg/m2 Radha Benavides MENAGERIE CARETAKER-[employer]RIMPING [employer] CAPTAIN Work Phone: [facility] 03-03-2021 08:12-0400 Body temperature 98.6 [degF] Radha Loerassratna [employer]ING [employer] CAPTAIN Work Phone: [facility] 03-03-2021 08:12-0400 Body weight 52.62 kg Radha Loerassler MENAGERIE CARETAKER-[employer]RIMPING [employer] CAPTAIN Work Phone: [facility] 03-03-2021 08:12-0400 Diastolic blood pressure 70 mm[Hg] Radha Benavides APRN-SHRIMPING BOAT CAPTAIN Work Phone: [facility] 03-03-2021 08:12-0400 Heart rate 96 /min Radha Loerassratna [employer]RIMPING [employer] CAPTAIN Work Phone: [facility] 03-03-2021 08:12-0400 SaO2% (BldA) [Mass fraction] 100 % Radha Benavides MENAGERIE CARETAKER-SHRIMPING BOAT CAPTAIN Work Phone: [facility] 03-03-2021 08:12-0400 Systolic blood pressure 116 mm[Hg] Radha Kennedy [employer]RIMPING [employer] CAPTAIN Work Phone: [facility] 02-26-2021 09:18-0400 Body height 157.5 cm Radha Loerassratna [employer]RIMPING [employer] CAPTAIN Work Phone: [facility] 02-26-2021 09:18-0400 Body mass index (BMI) [Ratio] 21.44 kg/m2 Radha Loerassler MENAGERIE CARETAKER-SHRIMPING [employer] CAPTAIN Work Phone: [facility] 02-26-2021 09:18-0400 Body temperature 99 [degF] Radha Benavides APRN-SHRIMPING BOAT CAPTAIN Work Phone: [employer] [facility] 02-26-2021 09:18-0400 Body weight 53.16 kg Radha Benavides APRN-SHRIMPING BO[employer] CAPTAIN Work Phone: [employer] [facility] 02-26-2021 09:18-0400 Diastolic blood pressure 70 mm[Hg] Radha Kennedy MENAGERIE CARETAKER-SHRIMPING [employer] CAPTAIN Work Phone: [facility] 02-26-2021 09:18-0400 Heart rate 114 /min Radha Kennedy MENAGERIE CARETAKER-SHRIMPING BOAT CAPTAIN Work Phone: [facility] 02-26-2021 09:18-0400 SaO2% (BldA) [Mass fraction] 99 % Radha Kennedy MENAGERIE CARETAKER-SHRIMPING BOAT CAPTAIN Work Phone: [facility] 02-26-2021 09:18-0400 Systolic blood pressure 116 mm[Hg] Radha Benavides MENAGERIE CARETAKER-SHRIMPING [employer]AT CAPTAIN Work Phone: [facility] 01-29-2021 09:11-0400 Body height 157.5 cm Radha Kennedy EUCEDAN[employer]SHRIMPING [employer] CAPTAIN Work Phone: [facility] [employer] [facility] 01-29-2021 09:11-0400 Body mass index (BMI) [Ratio] 21.33 kg/m2 Radha Kennedy MENAGERIE CARETAKER-SHRIMPING [employer] CAPTAIN Work Phone: [facility] 01-29-2021 09:11-0400 Body temperature 98.8 [degF] Radha Kennedy EUC[employer]RIMPING [employer] CAPTAIN Work Phone: [facility] 01-29-2021 09:11-0400 Body weight 52.89 kg Radha Kennedy [employer]RIMPING [employer] CAPTAIN Work Phone: [facility] 01-29-2021 09:11-0400 Diastolic blood pressure 68 mm[Hg] Radha Benavides MENAGERIE CARETAKER-SHRIMPING BO[employer] CAPTAIN Work Phone: [facility] 01-29-2021 09:11-0400 Heart rate 77 /min Radha Loerassler MENAGERIE CARETAKER-SHRIMPING [employer] CAPTAIN Work Phone: [employer] [facility] 01-29-2021 09:11-0400 SaO2% (BldA) [Mass fraction] 96 % Radha Loerassler MENAGERIE CARETAKER-SHRIMPING BOAT CAPTAIN Work Phone: [facility] 01-29-2021 09:11-0400 Systolic blood pressure 114 mm[Hg] Radha Loerassratna [employer]RIMPING [employer] CAPTAIN Work Phone: [facility] 01-01-2021 09:09-0400 Body height 157.5 cm Radha Loerassratna EUC[employer]RIMPING [employer] CAPTAIN Work Phone: [facility] 01-01-2021 09:09-0400 Body mass index (BMI) [Ratio] 21.98 kg/m2 Radha Loerassratna [employer]RIMPING [employer] CAPTAIN Work Phone: [facility] 01-01-2021 09:09-0400 Body temperature 97.7 [degF] Radha Benavides APRN-SHRIMPING BOAT CAPTAIN Work Phone: [facility] 01-01-2021 09:09-0400 Body weight 54.52 kg Radha Benavides APRN-SHRIMPING BOAT CAPTAIN Work Phone: [facility] 01-01-2021 09:09-0400 Diastolic blood pressure 70 mm[Hg] Radha Loerassratna [employer]RIMPING [employer] CAPTAIN Work Phone: [facility] 01-01-2021 09:09-0400 Heart rate 81 /min Radha Loerassratna EUC[employer]RIMPING [employer] CAPTAIN Work Phone: [facility] 01-01-2021 09:09-0400 SaO2% (BldA) [Mass fraction] 100 % Radha Loerassratna [employer]RIMPING [employer] CAPTAIN Work Phone: [facility] 01-01-2021 09:09-0400 Systolic blood pressure 104 mm[Hg] Radha Benavides APRN-SHRIMPING BO[employer] CAPTAIN Work Phone: [facility] 12-04-2020 11:36-0400 Body height 157.5 cm Radha Benavides APRN-SHRIMPING BO[employer] CAPTAIN Work Phone: [facility] 12-04-2020 11:36-0400 Body mass index (BMI) [Ratio] 22.24 kg/m2 Radha Benavides APRN-SHRIMPING BO[employer] CAPTAIN Work Phone: [facility] 12-04-2020 11:36-0400 Body temperature 98.91 [degF] Radha Loearssratna EUCEDAN-SHRIMPING BOAT CAPTAIN Work Phone: [facility] [employer] [facility] 12-04-2020 11:36-0400 Body weight 55.16 kg Radha Benavides APRN-SHRIMPING BO[employer] CAPTAIN Work Phone: [facility] 12-04-2020 11:36-0400 Diastolic blood pressure 62 mm[Hg] Radha Benavides APRN-SHRIMPING BO[employer] CAPTAIN Work Phone: [facility] 12-04-2020 11:36-0400 Heart rate 109 /min Radha Loerassratna [employer]RIMPING [employer] CAPTAIN Work Phone: [facility] 12-04-2020 11:36-0400 SaO2% (BldA) [Mass fraction] 98 % Radha Benavides APRN-SHRIMPING BO[employer] CAPTAIN Work Phone: [facility] 12-04-2020 11:36-0400 Systolic blood pressure 102 mm[Hg] Radha Benavides APRN-SHRIMPING BOAT CAPTAIN Work Phone: [facility] 11-20-2020 09:03-0400 Body height 157.5 cm Radha Benavides APRN-SHRIMPING BOAT CAPTAIN Work Phone: [facility] 11-20-2020 09:03-0400 Body mass index (BMI) [Ratio] 22.57 kg/m2 aRdha Benavides APRN-SHRIMPING BOAT CAPTAIN Work Phone: [facility] 11-20-2020 09:03-0400 Body temperature 97.9 [degF] Radha Benavides APRN-SHRIMPING BOAT CAPTAIN Work Phone: [facility] 11-20-2020 09:03-0400 Body weight 55.97 kg Radha Benavides APRN-SHRIMPING BO[employer] CAPTAIN Work Phone: [facility] 11-20-2020 09:03-0400 Diastolic blood pressure 62 mm[Hg] Radha Benavides APRN-SHRIMPING BO[employer] CAPTAIN Work Phone: [facility] 11-20-2020 09:03-0400 Heart rate 80 /min Radha MORANSHRIMPING BOAT CAPTAIN Work Phone: [facility] 11-20-2020 09:03-0400 SaO2% (BldA) [Mass fraction] 97 % Radha Kennedy EUC[employer]-SHRIMPING [employer] CAPTAIN Work Phone: [facility] 11-20-2020 09:03-0400 Systolic blood pressure 102 mm[Hg] Radha Kennedy EUC[employer]ING [employer] CAPTAIN Work Phone: [facility] 11-06-2020 08:54-0400 Body height 157.5 cm Radha Benavides APRN-SHRIMPING BOAT CAPTAIN Work Phone: [facility] 11-06-2020 08:54-0400 Body mass index (BMI) [Ratio] 22.83 kg/m2 Radha Benavides APRNKAT Work Phone: [facility] 11-06-2020 08:54-0400 Body temperature 98.1 [degF] Radha Kennedy EUCEDAN-SHRIMPING [employer] CAPTAIN Work Phone: [facility] 11-06-2020 08:54-0400 Body weight 56.61 kg Radha Kennedy QUICK-SHRIMPING BOAT CAPTAIN Work Phone: [facility] 11-06-2020 08:54-0400 Diastolic blood pressure 62 mm[Hg] Radha Kennedy EUCEDANKAT Work Phone: [facility] 11-06-2020 08:54-0400 Heart rate 82 /min Radha Kennedy EUCEDANKAT Work Phone: [facility] 11-06-2020 08:54-0400 SaO2% (BldA) [Mass fraction] 99 % Radha Benavides MENAGERIE CARETAKER-SHRIMPING BOAT CAPTAIN Work Phone: [facility] 11-06-2020 08:54-0400 Systolic blood pressure 102 mm[Hg] Radha Benavides MENAGERIE CARETAKER-SHRIMPING BOAT CAPTAIN Work Phone: [facility] 10-23-2020 11:32-0400 Body temperature Radha Benavides [facility] Comment on above: temperature is 90, collection was not wi tnessed 10-23-2020 11:20-0400 BMI (Body Mass Index) 23.23 kg/m2 [facility] 10-23-2020 11:20-0400 Body Temperature 98.6 [degF] [facility] 10-23-2020 11:20-0400 Body weight 57.61 kg [facility] 10-23-2020 11:20-0400 BP Diastolic 68 mm[Hg] [facility] 10-23-2020 11:20-0400 BP Systolic 116 mm[Hg] [facility] 10-23-2020 11:20-0400 Height 157.5 cm [facility] 10-23-2020 11:20-0400 Pulse (Heart Rate) 85 /min [facility] 10-23-2020 11:20-0400 Pulse Oximetry 97 % [facility] 10-09-2020 15:06-0400 Body temperature [facility] Comment on above: temperature is 92, collection was not wi tnessed 10-09-2020 14:06-0400 BMI (Body Mass Index) 23.52 kg/m2 [facility] 10-09-2020 14:06-0400 Body Temperature 97.81 [degF] [facility] 10-09-2020 14:06-0400 Body weight 58.33 kg [facility] 10-09-2020 14:06-0400 BP Diastolic 62 mm[Hg] [facility] 10-09-2020 14:06-0400 BP Systolic 102 mm[Hg] [facility] 10-09-2020 14:06-0400 Height 157.5 cm [facility] 10-09-2020 14:06-0400 Pulse (Heart Rate) 87 /min [facility] 10-09-2020 14:06-0400 Pulse Oximetry 97 % [facility] 10-02-2020 11:05-0400 BMI (Body Mass Index) 23.92 kg/m2 [facility] 10-02-2020 11:05-0400 Body Temperature 97.5 [degF] [facility] 10-02-2020 11:05-0400 Body weight 59.33 kg [facility] 10-02-2020 11:05-0400 BP Diastolic 68 mm[Hg] [facility] 10-02-2020 11:05-0400 BP Systolic 106 mm[Hg] [facility] 10-02-2020 11:05-0400 Height 157.5 cm [facility] 10-02-2020 11:05-0400 Pulse (Heart Rate) 75 /min [facility] 10-02-2020 11:05-0400 Pulse Oximetry 98 % [facility] 09-25-2020 10:32-0500 BMI (Body Mass Index) 23.96 kg/m2 [facility] 09-25-2020 10:32-0500 Body Temperature 98.2 [degF] [facility] 09-25-2020 10:32-0500 Body weight 59.42 kg [facility] 09-25-2020 10:32-0500 BP Diastolic 70 mm[Hg] [facility] 09-25-2020 10:32-0500 BP Systolic 116 mm[Hg] [facility] 09-25-2020 10:32-0500 Height 157.5 cm [facility] 09-25-2020 10:32-0500 Pulse (Heart Rate) 76 /min [facility] 09-25-2020 10:32-0500 Pulse Oximetry 98 % [facility] 09-25-2020 10:32-0500 Respiratory Rate 16 /min [facility] 01-22-2020 13:50-0400 BMI (Body Mass Index) 21.58 kg/m2 [facility] [place] 01-22-2020 13:50-0400 Body Temperature 98.1 [degF] [facility] [place] 01-22-2020 13:50-0400 Body weight 53.52 kg [facility] [place] 01-22-2020 13:50-0400 BP Diastolic 72 mm[Hg] [facility] [place] 01-22-2020 13:50-0400 BP Systolic 128 mm[Hg] [facility] [place] 01-22-2020 13:50-0400 Height 157.5 cm [facility] 01-22-2020 13:50-0400 Pulse (Heart Rate) 100 /min [facility] 01-22-2020 13:50-0400 Pulse Oximetry 94 % [facility] 01-22-2020 13:50-0400 Respiratory Rate 18 /min [facility] 11-16-2019 09:01-0400 BMI (Body Mass Index) 22.13 kg/m2 [facility] 11-16-2019 09:01-0400 Body Temperature 99.39 [degF] [facility] 11-16-2019 09:01-0400 Body weight 54.88 kg [facility] 11-16-2019 09:01-0400 BP Diastolic 57 mm[Hg] [facility] 11-16-2019 09:01-0400 BP Systolic 106 mm[Hg] [facility] 11-16-2019 09:01-0400 Height 157.5 cm [facility] 11-16-2019 09:01-0400 Pulse (Heart Rate) 107 /min [facility] 11-16-2019 09:01-0400 Pulse Oximetry 97 % [facility] 11-16-2019 09:01-0400 Respiratory Rate 15 /min [facility] 08-24-2019 01:39-0500 BMI (Body Mass Index) 24.33 kg/m2 [facility] Work Phone: 08-24-2019 01:39-0500 Body Temperature 98.4 [degF] [employer] Work Phone: 08-24-2019 01:39-0500 Body weight 60.33 kg [employer] Work Phone: 08-24-2019 01:39-0500 BP Diastolic 83 mm[Hg] [employer] [facility] Work Phone: 08-24-2019 01:39-0500 BP Systolic 137 mm[Hg] [employer] [facility] Work Phone: 08-24-2019 01:39-0500 Height 157.5 cm [facility] Work Phone: 08-24-2019 01:39-0500 Pulse (Heart Rate) 97 /min [employer] Work Phone: 08-24-2019 01:39-0500 Pulse Oximetry 99 % [employer] [facility] Work Phone: 08-24-2019 01:39-0500 Respiratory Rate 18 /min [employer] [facility] Work Phone: 05-18-2019 22:03-0400 BP Diastolic 68 mm[Hg] [employer] , [place] 05-18-2019 22:03-0400 BP Systolic 126 mm[Hg] [employer] [facility] , [place] 05-18-2019 22:03-0400 Pulse (Heart Rate) 78 /min [employer] 05-18-2019 22:03-0400 Pulse Oximetry 100 % [employer] , [place] 05-18-2019 22:03-0400 Respiratory Rate 16 /min [employer] [facility], [place] 05-18-2019 20:38-0400 Body Temperature 98.6 [degF] [facility] [place] Encounters Encounter Date Encounter Type Care Provider Facility Start: 01-25-2024 End: 01-25-2024 ambulatory CORRINA Leonardo [facility] Start: 01-25-2024 End: 01-25-2024 ambulatory CORRINA Leonardo [facility] Start: 01-25-2024 Encounter for gynecological examination (general) (routine) without abnormal findings [facility] Start: 12-27-2023 [facility] Start: 11-29-2023 ambulatory RADHA Lieberman [facility] Start: 11-29-2023 End: 11-29-2023 Clinical Support Encounter Virginia Cox DO Work Phone: [facility] Comment on above: Opioid dependence in remission (Primary Dx) Start: 11-14-2023 ambulatory SELF SELF [facility] Start: 11-11-2023 ambulatory SELF SELF [facility] Start: 11-01-2023 [facility] Start: 11-01-2023 End: 11-01-2023 Clinical Support Encounter Virginia Cox DO Work Phone: [facility] Comment on above: Opioid dependence in remission (Primary Dx) Start: 10-28-2023 ambulatory MARK [facility] Start: 10-25-2023 [facility] Start: 10-24-2023 ambulatory MARK [facility] Start: 10-14-2023 ambulatory SELF SELF [facility] Start: 09-26-2023 ambulatory MARK [facility] Start: 09-26-2023 End: 09-26-2023 Clinical Support Encounter Virginia Cox DO Work Phone: [facility] Comment on above: Opioid dependence in remission (Primary Dx) Start: 09-16-2023 [facility]ulatory [facility] Start: 08-20-2022 End: 08-21-2022 ambulatory WYATT KRZYSZTOF [facility] Start: 08-20-2022 End: 08-20-2022 Subsequent hospital visit by physician Janet Fu MENAGERIE [employer]ETAKER - [employer] Work Phone: [facility] Start: 05-11-2022 [facility] Start: 05-11-2022 End: 05-11-2022 Office outpatient visit 15 minutes Radha Benavides MENAGERIE [employer]AKER-[employer] Work Phone: [facility] Comment on above: Opioid dependence in remission (Primary Dx); Encounter for long-term opiate analgesic use Start: 04-08-2022 ambulatory [facility] Start: 03-11-2022 [facility] Start: 03-11-2022 End: 03-11-2022 Office outpatient visit 15 minutes Radha Benavides [employer]NAGERIE [employer]AKER[employer] Work Phone: [facility] Comment on above: Opioid dependence in remission (Primary Dx); Encounter for long-term opiate analgesic use Start: 02-08-2022 [facility] Start: 02-08-2022 End: 02-08-2022 Office outpatient visit 15 minutes Radha Benavides MENAGERIE [employer]ETAKER-[employer] Work Phone: [facility] Comment on above: Opioid dependence in remission (Primary Dx); Encounter for long-term opiate analgesic use Start: 01-06-2022 ambulatory RADHA Mio BENAVIDES [facility] Start: 01-06-2022 End: 01-06-2022 Office outpatient visit 15 minutes Radha Benavides [employer]NAGERIE [employer]AKER[employer] Work Phone: [facility] Comment on above: Opioid dependence in remission (Primary Dx); Encounter for long-term opiate analgesic use Start: 12-08-2021 ambulatory [facility] Start: 12-08-2021 End: 12-08-2021 Office outpatient visit 15 minutes Radha Benavides MENAGERIE CAR[employer]AKER-[employer] Work Phone: [facility] Comment on above: Opioid dependence in remission (Primary Dx); Encounter for long-term opiate analgesic use Start: 11-10-2021 [facility] Start: 11-10-2021 End: 11-10-2021 Office outpatient visit 15 minutes Radha Benavides MENAGERIE [employer]AKER[employer] Work Phone: [facility] Comment on above: Opioid dependence in remission (Primary Dx); Encounter for long-term opiate analgesic use; () Start: 10-26-2021 End: 10-29-2021 Evaluation and management of inpatient [facility] Start: 10-15-2021 End: 10-16-2021 ambulatory [facility] Start: 10-15-2021 End: 10-15-2021 Subsequent hospital visit by physician Karlee Hayden MENAGERIE CARETAKER - CNM Work Phone: [facility] Labor and Delivery Start: 10-13-2021 [facility] Start: 10-05-2021 End: 10-06-2021 [facility] Start: 10-05-2021 End: 10-05-2021 Subsequent hospital visit by physician Karlee Hayden MENAGERIE CARETAKER - CNM Work Phone: [facility] Labor and Delivery Comment on above: 36 weeks gestation o f Start: 09-16-2021 End: 09-16-2021 Subsequent hospital visit by physician Mirlande Diabetes Education Work Phone: [facility] Di[facility] Education Start: 09-14-2021 [facility] Start: 09-14-2021 End: 09-14-2021 Office outpatient visit 15 minutes Radha eBnavides MENAGERIE CAR[employer]AKER[employer] Work Phone: [facility] Comment on above: Opioid dependence in remission (Primary Dx); Encounter for long-term opiate analgesic use; , unspecified gestational age; Anxiety Start: 09-10-2021 End: 09-11-2021 ambulatory [facility] Start: 08-25-2021 End: 08-26-2021 ambulatory KARLEE HAYDEN [facility] Start: 08-17-2021 ambulatory [facility] Start: 07-21-2021 End: 07-22-2021 ambulatory [facility] Start: 07-17-2021 End: 07-18-2021 [facility] Start: 07-17-2021 Emergency department patient visit [facility] Start: 07-14-2021 [facility] Start: 06-16-2021 End: 06-17-2021 ambulatory [facility] Start: 06-16-2021 [facility] Start: 06-16-2021 End: 06-16-2021 Office outpatient visit 15 minutes Radha Benavides APRN-RONN Work Phone: [facility] Comment on above: Opioid dependence in remission (Primary Dx); Encounter for long-term opiate analgesic use; , unspecified gestational age; Anxiety; Bipolar 1 disorder Start: 06-12-2021 End: 06-12-2021 Emergency department patient visit [facility] Start: 06-12-2021 End: 06-12-2021 Emergency department patient visit Juan Richards MD Work Phone: [facility] ED Comment on above: Viral URI (Primary D x); Otalgia, unspecified laterality Start: 05-24-2021 End: 05-24-2021 Emergency department patient visit SARAH JUSTICE [facility] Start: 05-24-2021 End: 05-24-2021 Emergency department patient visit Sarah Justice MD Work Phone: [facility] ED Comment on above: Rectal bleeding (Ana harriett Dx) Start: 05-19-2021 [facility] Start: 04-14-2021 End: 04-15-2021 ambulatory [facility] Start: 04-14-2021 End: 04-14-2021 Subsequent hospital visit by physician Janet Becker CNP Work Phone: [facility] Comment on above: with 11 co mpleted weeks gestation Start: 04-08-2021 End: 04-08-2021 Emergency department patient visit [facility] Start: 04-08-2021 End: 04-08-2021 Emergency department patient visit Juan Richards MD Work Phone: [facility] ED Comment on above: Abdominal pain durin g in first trimester (Primary Dx); Urinary tract infection without hematuria, site unspecified Start: 03-25-2021 End: 03-25-2021 ambulatory MARIANNE TUCKER [facility] Start: 03-25-2021 End: 03-25-2021 Office outpatient new 45 minutes Martha Lara DO Work Phone: [facility] Comment on above: Acute nasopharyngiti s (Primary Dx); Exposure to SARS-associated coronavirus; [employer] Start: 03-10-2021 End: 03-11-2021 ambulatory KARLEE Pérez CATRACHO [facility] Start: 03-10-2021 End: 03-10-2021 Subsequent hospital visit by physician Janet Fu APRN - RONN Work Phone: [facility] Comment on above: Amenorrhea; Positive urine test; Encounter for supervision of normal first in first trimester Start: 03-03-2021 End: 03-03-2021 Office outpatient visit 15 minutes Radha Benavides APRN-[employer] Work Phone: [facility] Comment on above: Positive t est (Primary Dx); Opioid dependence in remission; Encounter for long-term opiate analgesic use Start: 02-26-2021 End: 02-26-2021 Office outpatient visit 15 minutes Radha Benavides APRN-[employer] Work Phone: [facility] Comment on above: Opioid dependence in remission (Primary Dx); Encounter for long-term opiate analgesic use; Anxiety Start: 01-29-2021 End: 01-29-2021 Office outpatient visit 25 minutes Radha Benavides APRN-[employer] Work Phone: [facility] Comment on above: Opioid dependence in remission (Primary Dx); Encounter for long-term opiate analgesic use; Bipolar 1 disorder; Anxiety; Seborrheic dermatitis of scalp; Dysuria; Sensation of pressure in bladder area; Acute cystitis with hematuria Start: 01-01-2021 End: 01-01-2021 Office outpatient visit 15 minutes Radha Benavides MENAGERIE CARETAKER-[place] Work Phone: [facility] Comment on above: Opioid dependence in remission (Primary Dx); Encounter for long-term opiate analgesic use; Anxiety Start: 12-04-2020 End: 12-04-2020 Office outpatient visit 25 minutes Radha Benavides MENAGERIE CARETAKER[employer] Work Phone: [facility] Comment on above: Opioid dependence in remission (Primary Dx); Encounter for long-term opiate analgesic use; Anxiety; Exposure to STD Start: 11-20-2020 End: 11-20-2020 Office outpatient visit 15 minutes Radha Benavides MENAGERIE [employer]AKER[employer] Work Phone: [facility] Comment on above: Opioid dependence in remission (Primary Dx); Encounter for long-term opiate analgesic use; Anxiety Start: 11-06-2020 End: 11-06-2020 Office outpatient visit 15 minutes Radha Benavides [employer]NAGERIE [employer]AKER[employer] Work Phone: [facility] Comment on above: Opioid dependence in remission (Primary Dx); Encounter for long-term opiate analgesic use; Anxiety Start: 10-23-2020 End: 10-23-2020 Office outpatient visit 15 minutes Radha Benavides Work Phone: [facility] Comment on above: Opioid dependence in remission; Encounter for long-term opiate analgesic use Start: 10-09-2020 End: 10-09-2020 Office outpatient visit 25 minutes Radha Benavides Work Phone: [facility] Comment on above: Opioid dependence in remission (Primary Dx); Encounter for long-term opiate analgesic use; Vitamin D deficiency Start: 10-02-2020 End: 10-02-2020 Office outpatient visit 25 minutes Radha Benavides Work Phone: [facility] Comment on above: Opioid dependence in remission (Primary Dx); Encounter for long-term opiate analgesic use; Fatigue, unspecified type; Hair loss Start: 09-25-2020 End: 09-25-2020 Office outpatient new 45 minutes Radha Lieberman Benavides Work Phone: [facility] Comment on above: Encounter for medica l examination to establish care (Primary Dx); Opioid dependence in remission; Encounter for long-term opiate analgesic use; Seborrheic dermatitis of scalp Start: 01-22-2020 End: 01-22-2020 Emergency department patient visit Karlo Warner Work Phone: [facility] ED Comment on above: Acute bronchitis, un specified organism (Primary Dx); Encounter for medication refill; Nonintractable headache, unspecified chronicity pattern, unspecified headache type Start: 12-18-2019 End: 12-18-2019 Subsequent hospital visit by physician Janet [facility] Start: 12-14-2019 End: 12-14-2019 Subsequent hospital visit by physician Janet [facility] Start: 11-16-2019 End: 11-16-2019 Emergency department patient visit Karlo Warner Work Phone: [facility] Comment on above: Chlamydia infection (Primary Dx); Pelvic pain Start: 11-10-2019 End: 11-10-2019 Subsequent hospital visit by physician Janet [facility] Start: 11-08-2019 End: 11-08-2019 Subsequent hospital visit by physician Janet [facility] Start: 08-24-2019 End: 08-24-2019 Emergency department patient visit Juan Richards Work Phone: [facility] Comment on above: Dysuria (Primary Dx) ; Yeast vaginitis Start: 05-29-2019 End: 05-29-2019 Subsequent hospital visit by physician Janet Fu [facility] Comment on above: Screening for STD (s exually transmitted disease); Screening for cervical cancer Start: 05-18-2019 End: 05-18-2019 Emergency department patient visit Andrew Marley Work Phone: [facility] ED Comment on above: Concussion without l oss of consciousness, initial encounter (Primary Dx) Start: 10-17-2018 End: 10-17-2018 Patient encounter procedure Harshal Car Facility:[facility] Start: 08-07-2018 End: 08-08-2018 Patient encounter procedure JANET Clark KEIRY Facility: Procedures Date Procedure Procedure Detail Performing Clinician Start: 11-29-2023 Albumin serum plasma/whole blood [place] Mark Kenny DO Work Phone: Start: 08-20-2022 Smr prim src wet mount nfct agt Wyatt Dsouza [employer]NAGERIE CAR[employer]AKER - [employer] Work Phone: Start: 05-11-2022 Drug test prsmv read direct optical obs pr date Radha Benavides MENAGERIE CARETAKER-[employer] Work Phone: Start: 03-11-2022 Drug test prsmv read direct optical obs pr date Radha Benavides [employer]NAGERIE CARETAKER[employer] Work Phone: Start: 02-08-2022 Drug test prsmv read direct optical obs pr date Radha Beanvides [facility]IE [facility]ER[facility] Work Phone: Start: 01-06-2022 Drug test prsmv read direct optical obs pr date Radha Benavides [employer]NAGERIE CAR[employer]AKER[employer] Work Phone: Start: 12-08-2021 Drug test prsmv read direct optical obs pr date Radha Benavides [employer]IE [employer] Work Phone: Start: 11-10-2021 Drug test prsmv read direct optical obs pr date Radha Benavides [employer]NA[employer]IE [employer] Work Phone: Start: 10-15-2021 Urinalysis microscopic only Karlee E P ool MENAGERIE CARETAKER - CN Work Phone: Start: 10-15-2021 Urnls dip stick/tablet rgnt auto w/o microscopy Karlee E Pool MENAGERIE CARETAKER - CNM Work Phone: Start: 09-14-2021 Drug test prsmv read direct optical obs pr date Radha Benavides [employer]NAGERIE [employer]AKER[employer] Work Phone: Start: 06-16-2021 Drug test prsmv read direct optical obs pr date Radha Benavides [employer]NA[employer]IE [employer]AKER[employer] Work Phone: Start: 05-24-2021 Antibody screen Sarah [...] Work Phone: Start: 03-10-2021 Antibody screen Janet Fu MENAGERIE [employer]AKER - [employer] Work Phone: Start: 03-10-2021 Drug screen, qualitate/multi Karlee E Pool MENAGERIE CARETAKER - CNM Work Phone: Start: 03-10-2021 Antibody hiv-1&hiv-2 single result Karlee E Pool MENAGERIE CARETAKER - CNM Work Phone: Start: 03-03-2021 Drug test prsmv read direct optical obs pr date Radah Benaivdes MENAGERIE CAR[employer]AKER[employer] Work Phone: Start: 03-03-2021 Urine test visual color cmprsn meths Radha Benavides MENAGERIE [employer]AKER[employer] Work Phone: Start: 02-26-2021 Drug test prsmv read direct optical obs pr date Radha Benavides [facility] Work Phone: Start: 01-29-2021 Urnls dip stick/tablet rgnt auto w/o microscopy Radha Benavides [facility] Work Phone: Start: 01-29-2021 Drug test prsmv read direct optical obs pr date Radha Gaffneyler [facility] Work Phone: Start: 01-29-2021 Culture bacterial quanttative colony count urine Radha Gaffneyler [facility] Work Phone: Start: 01-01-2021 Drug test prsmv read direct optical obs pr date Radha Gaffneyler [facility] Work Phone: Start: 12-04-2020 Drug test prsmv read direct optical obs pr date Radha Gaffneyler [facility] Work Phone: Start: 12-04-2020 Iadna chlamydia trachomatis amplified probe tq Radha Gaffneyler [facility] Work Phone: Start: 11-20-2020 Drug test prsmv read direct optical obs pr date Radha Mio LoeraBenavides [facility] Work Phone: Start: 11-06-2020 Drug test prsmv read direct optical obs pr date Radha Gaffneyler [facility] Work Phone: Start: 10-23-2020 Drug test [...] Choriogonadotropin ( test) [Presence] in Urine Radha Lieberman Benavides Work Phone: Start: 09-29-2020 Drug test prsmv read direct optical obs pr date Radha Lieberman [facility] Work Phone: Start: 09-25-2020 Antibody hiv-1 Radha Lieberman Benavides Work Phone: Start: 09-25-2020 Complete blood count with white cell differential, automated Radha Lieberman [facility] Work Phone: Start: 09-25-2020 Comprehensive metabolic panel Radha Lieberman Evaristo luis antonioratna Work Phone: Start: 09-25-2020 Hepatitis A virus IgM Ab [Presence] in Serum or Plasma by Immunoassay Radha Mio [facility] Work Phone: Start: 09-25-2020 Iaad ia hepatitis b surface antigen Radha Gaffneyler Work Phone: Start: 01-22-2020 Radiologic exam chest [...] Start: 11-08-2019 Blood count complete automated Wyatt foss Work Phone: Start: 11-08-2019 Gonadotropin chorionic [...] of 2) Shingles Vaccine (1 of 2) [facility] [employer] Work Phone: Start: 03-18-2024 Influenza vaccination INFLUENZ A VACCINE (Season Ended) [facility] Start: 12-27-2023 End: 12-27-2023 Clinical Support Encounter 12/27/2023 1:30 PM EDT Clinical Support Encounter [facility] [address] [place] [address] [facility] Start: 11-29-2023 End: 11-29-2023 Clinical Support Encounter 11/29/2023 1:30 PM EDT Clinical Support Encounter [facility] [address] [place] [address] [facility] Start: 11-11-2023 End: 11-11-2023 Telemedicine consultation with patient 11/11/2023 11:30 AM EDT [facility] [address] [place] [address] Virginia Cox, [address] [place] [address] [facility] Start: 11-01-2023 End: 10-31-2024 Hepatic function 2000 panel - Serum or Plasma HEPATIC FUNCTION PANEL Lab Routine Opioid dependence in remission Expected: 11/01/2023, Expires: 10/31/2024 [facility] Comment on above: Expected: 11/01/2023 , Expires: 10/31/2024 Start: 10-24-2023 End: 10-24-2023 Clinical Support Encounter 10/24/2023 2:00 PM EDT Clinical Support Encounter [facility] [address] [place] [address] [facility] Start: 10-14-2023 End: 10-14-2023 Telemedicine consultation with patient 10/14/2023 11:45 AM EDT [facility] [address] [place] [address] Virginia Cox, [address] [place] [address] [facility] Start: 03-18-2023 COVID-19 VACCINE () COVID-19 VACCINE () [facility] Start: 03-18-2023 Influenza vaccination INFLUENZA VACC INE (#1) [facility] Start: 09-14-2022 Depression Monitoring Depression Mon boo [facility] Start: 09-14-2022 DTaP/Tdap/Td vaccine (6 - Td or Tdap) DTaP/Tdap/Td vaccine (6 - Td or Tdap) [facility] Comment on above: Postponed from 01/26 (Patient Refused) Start: 09-14-2022 Influenza vaccination M [facility] Comment on above: Postponed from 03/18 (Patient Refused) Postponed from 03/18 (Patient Refused) Start: 06-08-2022 End: 06-08-2022 Patient encounter procedure 06/08/2022 Office Visit Family Medicine Radha Benavieds, MENAGERIE CAR[employer]AKER[employer] [address] [place] [address] [facility] Start: 05-29-2022 Cervical cancer screen Cervical canc er screen [facility] Work Phone: Start: 05-29-2022 Screening for malign ant neoplasm of cervix [facility] Start: 04-08-2022 End: 04-08-2022 Patient encounter procedure 04/08/2022 Office Visit Family Medicine Radha Benavides, [employer]NA[employer]IE [employer] [address] [place] [address] [facility] Start: 03-18-2022 Influenza vaccination A [facility] Start: 03-10-2022 Screening for Chlamy mariela trachomatis [facility] Start: 03-09-2022 End: 03-09-2022 Patient encounter procedure 03/09/2022 Office Visit Family Medicine Radha Benavidse, MENAGERIE [employer]AK[employer] [address] [place] [address] [facility] Start: 02-15-2022 Influenza vaccination Flu vaccine (# 1) [facility] Start: 02-03-2022 End: 02-03-2022 Patient encounter procedure 02/03/2022 Office Visit Family Medicine Radha Benavides, [employer]NA[employer]IE [employer] [address] [place] [address] [facility] Start: 01-05-2022 End: 01-05-2022 Patient encounter procedure 01/05/2022 Office Visit Family Medicine Radha Benavides, [employer]IE [employer] [address] [place] [address] [facility] Start: 12-08-2021 End: 12-08-2021 Patient encounter procedure 12/08/2021 Office Visit Family Medicine Radha Benavides, MENAGERIE CARETAKER-SHRIMPING BOAT CAPTAIN [address] [place] [address] [facility] Start: 12-04-2021 GONORRHEA SCREEN GONORRHEA SCREEN [facility] Start: 12-04-2021 Screening for Chlamy mariela trachomatis [facility] Start: 11-02-2021 End: 11-02-2021 Professional / ancillary services management 11/02/2021 Ancillary Procedure Obstetrics and Gynecology [facility] Start: 11-02-2021 End: 11-02-2021 Patient encounter procedure [facility] Start: 11-02-2021 End: 11-02-2021 Professional / ancillary services management 11/02/2021 Ancillary Procedure Obstetrics and Gynecology [facility] Start: 10-29-2021 End: 10-29-2021 Patient encounter procedure [facility] Start: 10-26-2021 End: 10-26-2021 Professional / ancillary services management 10/26/2021 Ancillary Procedure Obstetrics and Gynecology [facility] Start: 10-26-2021 End: 10-26-2021 Patient encounter procedure [facility] Start: 10-26-2021 End: 10-26-2021 Professional / ancillary services management 10/26/2021 Ancillary Procedure Obstetrics and Gynecology [facility] Start: 10-22-2021 End: 10-22-2021 Patient encounter procedure [facility] Start: 10-19-2021 End: 10-19-2021 Patient encounter procedure 10/19/2021 Routine Obstetrics and Gynecology Karlee Hayden, MENAGERIE CARETAKER - CNM [address] [facility] [address] [place] [address] [facility] Start: 10-19-2021 End: 10-19-2021 Patient encounter procedure [facility] Start: 10-19-2021 End: 10-19-2021 Professional / ancillary services management 10/19/2021 Ancillary Procedure Obstetrics and Gynecology [facility] Start: 10-15-2021 End: 10-15-2021 Patient encounter procedure [facility] Start: 10-13-2021 End: 10-13-2021 Patient encounter procedure 10/13/2021 Office Visit Family Medicine Radha Benavides, MENAGERIE CARETAKER-SHRIMPING BOAT CAPTAIN [address] [place] [address] [facility] Start: 10-12-2021 End: 10-12-2021 Professional / ancillary services management 10/12/2021 Ancillary Procedure Obstetrics and Gynecology [facility] Start: 10-12-2021 End: 10-12-2021 Patient encounter procedure [facility] Start: 10-12-2021 End: 10-12-2021 Professional / ancillary services management 10/12/2021 Ancillary Procedure Obstetrics and Gynecology [facility] Start: 10-08-2021 End: 10-08-2021 Patient encounter procedure [facility] Start: 10-05-2021 End: 10-05-2021 Patient encounter procedure 10/05/2021 Routine Obstetrics and Gynecology Karlee Hayden MENAGERIE CARETAKER - CNM [address] [place] [address] [facility] Start: 10-05-2021 End: 10-05-2021 Patient encounter procedure [facility] Start: 10-05-2021 End: 10-05-2021 Professional / ancillary services management 10/05/2021 Ancillary Procedure Obstetrics and Gynecology [facility] Start: 10-02-2021 End: 10-02-2021 Patient encounter procedure 10/02/2021 Appointment IP Unit Fan Noel, RD, LD [facility] Diet and Nutrition Start: 10-01-2021 End: 10-01-2021 Patient encounter procedure [facility] Start: 09-28-2021 End: 09-28-2021 Professional / ancillary services management 09/28/2021 Ancillary Procedure Obstetrics and Gynecology [facility] Start: 09-28-2021 End: 09-28-2021 Patient encounter procedure [facility] Start: 09-28-2021 End: 09-28-2021 Professional / ancillary services management 09/28/2021 Ancillary Procedure Obstetrics and Gynecology [facility] Start: 09-24-2021 End: 09-24-2021 Patient encounter procedure 09/24/2021 Routine Obstetrics and Gynecology Avery Ovalle MD [address] [place] [address] [place] [address] [facility] Start: 09-21-2021 End: 09-21-2021 Patient encounter procedure [facility] Start: 09-21-2021 End: 09-21-2021 Professional / ancillary services management 09/21/2021 Ancillary Procedure Obstetrics and Gynecology [facility] Start: 09-17-2021 End: 09-17-2021 Patient encounter procedure [facility] Start: 09-14-2021 End: 09-14-2021 Patient encounter procedure [facility] Start: 09-14-2021 End: 09-14-2021 Professional / ancillary services management 09/14/2021 Ancillary Procedure Obstetrics and Gynecology [facility] Start: 09-10-2021 End: 09-10-2021 Patient encounter procedure [facility] Start: 09-07-2021 End: 09-07-2021 Patient encounter procedure [facility] Start: 09-07-2021 End: 09-07-2021 Professional / ancillary services management 09/07/2021 Ancillary Procedure Obstetrics and Gynecology [facility] Start: 08-27-2021 End: 08-27-2021 Patient encounter procedure [facility] Start: 08-25-2021 End: 08-25-2021 Patient encounter procedure [facility] Start: 08-25-2021 End: 08-25-2021 Professional / ancillary services management 08/25/2021 Ancillary Procedure Obstetrics and Gynecology [facility] Start: 07-14-2021 End: 07-14-2021 Patient encounter procedure 07/14/2021 Office Visit Family Medicine Radha Benvaides, MENAGERIE CARETAKER[employer]SHRIMPING [employer] CAPTAIN [address] [place] [address] [facility] Start: 06-15-2021 End: 06-15-2021 Patient encounter procedure [facility] Start: 06-15-2021 End: 06-15-2021 Professional / ancillary services management 06/15/2021 Ancillary Procedure Obstetrics and Gynecology [facility] Start: 05-26-2021 End: 05-26-2021 Patient encounter procedure 05/26/2021 Routine Obstetrics and Gynecology Avery Ovalle MD [address] [place], [place] [id number] [facility] 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 SERVICE OPERATOR Start: 04-14-2021 End: 04-14-2021 Patient encounter procedure 04/14/2021 Routine Obstetrics and Gynecology Avery Ovalle MD [address] [place], [place] [id number] [facility] MARINE SERVICE OPERATOR Start: 03-26-2021 End: 03-26-2021 Patient encounter procedure 03/26/2021 Office Visit Family Medicine Radha Benavides, MENAGERIE CARETAKER-SHRIMPING BOAT CAPTAIN [address] [place] [address] [facility] Start: 03-18-2021 Influenza vaccination [facility] Start: 03-17-2021 End: 03-17-2021 Patient encounter procedure 03/17/2021 Routine Obstetrics and Gynecology Karlee Hayden MENAGERIE CARETAKER - CN [address] [address] [phone] [facility] Start: 03-17-2021 End: 03-17-2021 Professional / ancillary services management 03/17/2021 Ancillary Procedure Obstetrics and Gynecology [facility] Start: 02-26-2021 End: 02-26-2021 Patient encounter procedure 02/26/2021 Office Visit Family Medicine Radha Benavides, MENAGERIE CARETAKER-[employer]RIMPING BO[employer] CAPTAIN [address] [place] [address] [phone] [facility] Start: 01-29-2021 End: 01-29-2021 Patient encounter procedure 01/29/2021 Office Visit Family Radha Heller, MENAGERIE CARETAKER-SHRIMPING BOAT CAPTAIN [address] [place] [address] [phone] [facility] Start: 01-26-2021 DTaP/Tdap/Td vaccine (6 - Td or Tdap) DTaP/Tdap/Td vaccine (6 - Td or Tdap) [facility] Start: 01-26-2021 DTaP/Tdap/Td vaccine (6 - Td) DTaP/Tdap/Td vaccine (6 - Td) [facility] [place], [place] Start: 01-26-2021 Tetanus vaccination [facility] Start: 01-01-2021 End: 01-01-2021 Patient encounter procedure 01/01/2021 Office Visit Family Medicine Radha Benavides, MENAGERIE CARETAKER-SHRIMPING BOAT CAPTAIN [address] [place] [address] [phone] [facility] Start: 12-17-2020 Screening for Chlamy mariela trachomatis Chlamydia screen [facility], [place] Start: 12-04-2020 End: 12-04-2020 Patient encounter procedure 12/04/2020 Office Visit Family Medicine Radha Benavides MENAGERIE CARETAKER-SHRIMPING BOAT CAPTAIN [address] [place] [address] [phone] [facility] Start: 11-20-2020 End: 11-20-2020 Patient encounter procedure 11/20/2020 Office Visit Family Medicine Radha Benavides MENAGERIE CARETAKER-SHRIMPING BO[employer] CAPTAIN [address] [place] [address] [phone] [facility] Start: 11-09-2020 Screening for Chlamy mariela trachomatis Chlamydia screen [place] Start: 11-06-2020 End: 11-06-2020 Office Visit 11/06/2020 Office Visit Family Medicine Radha Benavides MENAGERIE CARETAKER[employer]SHRIMPING [employer] CAPTAIN [address] [place] [address] [phone] [facility] Start: 10-23-2020 End: 10-23-2020 Office Visit 10/23/2020 Office Visit Family Medicine Radha Benavides MENAGERIE CARETAKER-SHRIMPING [employer] CAPTAIN [address] [place] [address] [phone] [facility] Start: 10-09-2020 End: 10-09-2020 Office Visit 10/09/2020 Office Visit Family Medicine Radha Benavides, MENAGERIE CARETAKER-SHRIMPING BOAT CAPTAIN [address] [place] [address] [phone] [facility] Start: 10-02-2020 End: 10-02-2020 Office Visit 10/02/2020 Office Visit Family Medicine Radha Benavides MENAGERIE CARETAKER-SHRIMPING BOAT CAPTAIN [address] [place] [address] [phone] [facility] Start: 08-24-2020 Screening for Chlamy mariela trachomatis Chlamydia screen [place], [place] Start: 06-19-2020 Influenza vaccination [facility] [employer] Phone: Comment on above: Postponed from 03/18 (Patient Refused) Postponed from 03/18 (Patient Refused) Start: 05-29-2020 Chlamydia screen Chlamydia screen [facility] [employer] Phone: Start: 03-18-2020 Influenza vaccination [place], [place] Start: 08-06-2019 Chlamydia screen Chlamydia screen Me [place], [place] Start: 06-12-2019 End: 06-12-2019 Procedure visit 06/12/2019 Procedure visit Obstetrics and Gynecology Avery Ovalle MD [facility] [place] [phone] [facility] Gynecology Specialist Start: 2019 Cervical cancer screen Cervical canc er screen [place], [place] Start: 2019 Screening for malign ant neoplasm of cervix CERVICAL CANCER SCREENING DISCUSSION [facility] Start: 03-18-2019 Influenza vaccination Flu vaccine (# 1) [place], [place] Start: 2017 DTaP/Tdap/Td vaccine (1 - Tdap) DTaP/Tdap/Td vaccine (1 - Tdap) [place] Start: 2017 Third diphtheria, tetanus and acellular pertussis (DTaP) vaccination TDAP (ADULT) [facility] Start: 2016 Hepatitis C screening Hepatitis C [facility] Start: 2016 Tetanus vaccination TETANUS [facility] Start: 2014 COVID-19 VACCINE (1) COVID-19 VACCIN E (1) [facility] Start: 2014 Screening for Chlamy mariela trachomatis CHLAMYDIA SCREEN [facility] Start: 2013 HIV screening HIV Screening [facility] Start: 2013 HPV vaccine (1 - Fem jessica 3-dose series) HPV vaccine (1 - Female 3-dose series) [place], [place] Start: 2011 Varicella Vaccine (1 of 2 - 13+ 2-dose series) Varicella Vaccine (1 of 2 - 13+ 2-dose series) [place], [place] Start: 2010 COVID-19 VACCINE (1) COVID-19 VACCIN E (1) [facility] Start: 2010 Depression screening using PHQ-9 (Patient Health Questionnaire 9) score Depression Screening (PHQ9) [facility] Start: 2009 Vaccination for virgilio n papillomavirus HPV VACCINE ADOL (1 - 2-dose series) [facility] Start: 2004 Pneumococcal 0-64 ye ars Vaccine (1 of 1 - PPSV23) Pneumococcal 0-64 years Vaccine (1 of 1 - PPSV23) [place], [place] Start: 2004 Pneumococcal 0-64 ye ars Vaccine (1 of 2 - PPSV23) Pneumococcal 0-64 years Vaccine (1 of 2 - PPSV23) [facility] Start: 2004 PNEUMOCOCCAL VACCINE SERIES (1 of 2 - PPSV23) PNEUMOCOCCAL VACCINE SERIES (1 of 2 - PPSV23) [facility] Start: 2004 Pneumococcal Vaccine : Ped or At-Risk (1 of 2 - PPSV23) Pneumococcal Vaccine: Ped or At-Risk (1 of 2 - PPSV23) [facility] Start: 2003 COVID-19 VACCINE (#1) COVID-19 VACCI NE (#1) [facility] Start: 2003 COVID-19 Vaccine (1) COVID-19 Vaccin e (1) [facility] Start: 2001 History and physical examination, annual for health maintenance Wellness Visit [facility] Start: 1998 COVID-19 VACCINE (#1) COVID-19 VACCI NE (#1) [facility] Start: 1998 GONORRHEA SCREEN GONORRHEA SCREEN [facility] Start: 1998 Screening for Chlamy mariela trachomatis Chlamydia Screening [facility] Start: 1998 Screening for malign ant neoplasm of cervix Pap Smear [facility] End: 08-24-2019 Bacteria identified Cx Nom (U) Urine Culture Microbiology Routine Once for 1 Occurrences starting 08/24/2019 until 08/24/2019 [facility] Work Phone: Comment on above: Once for 1 Occurrenc es starting 08/24/2019 until 08/24/2019 Bacteria identified Cx Nom (U) [employer] Phone: End: 10-15-2021 Bacteria identified in Urine by Culture [employer] Phone: Comment on above: One Time for 1 Occur rences starting 10/15/2021 until 10/15/2021 End: 11-10-2019 C.trachomatis N.gonorrhoeae DNA C.trachomatis N.gonorrhoeae DNA Microbiology Routine Once for 1 Occurrences starting 11/10/2019 until 11/10/2019 [place] [place] Comment on above: Once for 1 Occurrenc es starting 11/10/2019 until 11/10/2019 C.trachomatis N.gonorrhoeae DNA [facility] [place] End: 12-18-2019 C.trachomatis N.gonorrhoeae DNA C.trachomatis N.gonorrhoeae DNA Microbiology Routine Once for 1 Occurrences starting 12/18/2019 until 12/18/2019 [place] Comment on above: Once for 1 Occurrenc es starting 12/18/2019 until 12/18/2019 End: 08-20-2022 C.trachomatis N.gonorrhoeae DNA [employer] Phone: Comment on above: Once for 1 Occurrenc es starting 08/20/2022 until 08/20/2022 End: 08-24-2019 C.trachomatis N.gonorrhoeae DNA, Urine C.trachomatis N.gonorrhoeae DNA, Urine Microbiology Routine One Time for 1 Occurrences starting 08/24/2019 until 08/24/2019 [employer] Phone: Comment on above: One Time for 1 Occur rences starting 08/24/2019 until 08/24/2019 C.trachomatis N.gonorrhoeae DNA, Urine [employer] Phone: End: 03-10-2021 C.trachomatis N.gonorrhoeae DNA, Urine C.trachomatis N.gonorrhoeae DNA, Urine Microbiology Routine Amenorrhea Positive urine test Encounter for supervision of normal first in first trimester 1 Occurrences starting 03/10/2021 until 03/10/2021 [employer] Phone: Comment on above: 1 Occurrences starti ng 03/10/2021 until 03/10/2021 End: 05-29-2019 Chlamydia/GC DNA, Thin Prep Chlamydia/GC DNA, Thin Prep Microbiology Routine Screening for STD (sexually transmitted disease) 1 Occurrences starting 05/29/2019 until 05/29/2019 [place] Comment on above: 1 Occurrences starti ng 05/29/2019 until 05/29/2019 Chlamydia/GC DNA, Th in Prep Chlamydia/GC DNA, Thin Prep Microbiology Routine Screening for STD (sexually transmitted disease) 05/29/2019 12:22 PM EST [place] CHLAMYDIA/GONOCOCCUS , MARIA FERNANDA CHLAMYDIA/GONOCOCCUS, MARIA FERNANDA Microbiology Routine Exposure to STD 12/04/2020 11:40 AM [facility] End: 11-10-2019 Culture, Genital Culture, Genital Microbiology Routine Once for 1 Occurrences starting 11/10/2019 until 11/10/2019 [place] Comment on above: Once for 1 Occurrenc es starting 11/10/2019 until 11/10/2019 Culture, Genital Culture, Genita l Microbiology Routine 11/10/2019 2:00 PM [facility] [place] End: 10-05-2021 Culture, Strep B Screen, Vaginal/Rectal [employer] Phone: Comment on above: 1 Occurrences starti ng 10/05/2021 until 10/05/2021 End: 03-10-2021 Culture, Urine Culture, Urine Microbiology Routine Amenorrhea Positive urine test Encounter for supervision of normal first in first trimester 1 Occurrences starting 03/10/2021 until 03/10/2021 [employer] Phone: Comment on above: 1 Occurrences starti ng 03/10/2021 until 03/10/2021 End: 04-08-2021 Culture, Urine Culture, Urine Microbiology Routine Once for 1 Occurrences starting 04/08/2021 until 04/08/2021 [employer] Phone: Comment on above: Once for 1 Occurrenc es starting 04/08/2021 until 04/08/2021 End: 05-29-2019 Cytopathology procedure, preparation of smear, genital source PAP Smear Lab Routine Screening for cervical cancer 1 Occurrences starting 05/29/2019 until 05/29/2019 [facility] 1 Occurrences starti ng 05/29/2019 until 05/29/2019 End: 10-05-2021 nonstress test nonstress test OB Routine One Time for 1 Occurrences starting 10/05/2021 until 10/05/2021 [employer] Phone: Comment on above: One Time for 1 Occur rences starting 10/05/2021 until 10/05/2021 End: 10-15-2021 nonstress test nonstress test OB Routine One Time for 1 Occurrences starting 10/15/2021 until 10/15/2021 [employer] Phone: Comment on above: One Time for 1 Occur rences starting 10/15/2021 until 10/15/2021 Nonrebreather mask oxygen Nonrebreather mask oxygen Respiratory Care Routine As directed - RT (PRN) until discontinued starting 10/15/2021 [employer] Phone: Comment on above: As directed - RT (NE N) until discontinued starting 10/15/2021 End: 10-15-2021 SVE SVE Point of Care Testing Routine One Time for 1 Occurrences starting 10/15/2021 until 10/15/2021 [employer] Phone: Comment on above: One Time for 1 Occur rences starting 10/15/2021 until 10/15/2021 End: 11-16-2019 Urinalysis, reflex to microscopic Urinalysis, reflex to microscopic Lab STAT One Time for 1 Occurrences starting 11/16/2019 until 11/16/2019 [facility] [place] Comment on above: One Time for 1 Occur rences starting 11/16/2019 until 11/16/2019 Immunizations Immunization Date Immunization Notes Care Provider Smooth fernández 05-31-2007 influenza virus vaccine, unspecified formulation Radha Benavides 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 2020 Unknown [id number] [id number]. [id number] 2018 Self-pay 2016 Unknown [employer] [facility] MEDICAID xxxxxxxxxxx 2016-Present [phone] CLAIMS DEPARTMENT [address] [place] [address] xxxxxxxxxxx [id number]. [id number] 1998 Unknown [id number] 2.16.840.1.541269.3.579.2.593 1998 Unknown [id number] 2.16.840.1.515002.3.579.2.903 1998 Unknown [id number] 2.16.840.1.837802.3.579.2.174 1998 Unknown [id number] 2.16.840.1.734032.3.579.2.174 1998 Unknown [id number] 2.16.840.1.875267.3.579.2.174 1998 Unknown [id number] 2.16.840.1.538105.3.579.2.174 1998 Unknown [id number] 2.16.840.1.712435.3.579.2.174 1998 Unknown [id number] 2.16.840.1.420070.3.579.2.174 1998 Unknown [id number] 2.16.840.1.293788.3.579.2.174 1998 Unknown [id number] 2.16.840.1.266360.3.579.2.174 1998 Unknown [id number] 2.16.840.1.332692.3.579.2.174 1998 Unknown [id number] 2.16.840.1.356975.3.579.2.983 1998 Unknown [id number] 2.16.840.1.368214.3.579.2.983 1998 Unknown [id number] 2.16.840.1.525108.3.579.2.983 1998 Unknown [id number] 2.16.840.1.433938.3.579.2.983 1998 Unknown [id number] 2.16.840.1.980149.3.579.2.983 1998 Unknown [id number] 2.16.840.1.302338.3.579.2.983 1998 Unknown [id number] 2.16.840.1.455452.3.579.2.983 1998 Unknown [id number] 2.16.840.1.574780.3.579.2.983 1998 Unknown [id number] 2.16.840.1.783794.3.579.2.983 1998 Unknown [id number] 2.16.840.1.083845.3.579.2.983 1998 Unknown [id number] 2.16.840.1.667626.3.579.2.983 1998 Unknown [id number] 2.16.840.1.458715.3.579.2.983 1998 Unknown [id number] 2.16.840.1.564239.3.579.2.983 1998 Unknown [id number] 2.16.840.1.006344.3.579.2.173 1998 Unknown [id number] 2.16.840.1.920502.3.579.2.173 1998 Unknown [id number] 2.16.840.1.513785.3.579.2.173 1998 Unknown [id number] 2.16.840.1.307635.3.579.2.173 1998 Unknown [id number] 2.16.840.1.520437.3.579.2.173 1998 Unknown [id number] 2.16.840.1.848259.3.579.2.173 1998 Unknown [id number] 2.16.840.1.676961.3.579.2.173 1998 Unknown [id number] 2.16.840.1.830376.3.579.2.983 1998 Unknown [id number] 2.16.840.1.495023.3.579.2.983 1998 Unknown [id number] 2.16.840.1.380488.3.579.2.983 1998 Unknown [id number] 2.16.840.1.164909.3.579.2.983 1998 Unknown [id number] 2.16.840.1.457971.3.579.2.983 1998 Unknown [id number] 2.16.840.1.473438.3.579.2.983 1998 Unknown [id number] 2.16.840.1.178001.3.579.2.983 1998 Unknown [id number] 2.16.840.1.014550.3.579.2.983 1998 Unknown [id number] 2.16.840.1.255476.3.579.2.983 1998 Unknown [id number] 2.16.840.1.376104.3.579.2.983 1998 Unknown [id number] 2.16.840.1.377447.3.579.2.983 1998 Unknown [id number] 2.16.840.1.627864.3.579.2.1286 1998 Unknown [id number] 2.16.840.1.288251.3.579.2.1286 1959 Unknown [id number] 2.16.840.1.804612.3.579.2.531 Social History Date Type Detail Facility Start: 05-18-2019 End: 09-25-2020 Tobacco smoking status NHIS Current every day smoker [facility] History of tobacco use Cigarette Smoker [place] Start: 05-18-2019 End: 09-16-2023 Alcohol intake Yes [place] Start: 09-29-2016 Alcohol Comment occasional [place], [place] Start: 1998 Sex Assigned At Not on file [place] Start: 08-24-2019 End: 09-16-2023 Cigarettes smoked current (pack per day) - Reported [facility] Work Phone: Start: 08-24-2019 End: 12-15-2021 Alcohol intake Current drinker of alcohol (finding) [place] Start: 09-12-2019 Alcohol Comment occasional , weekend s [place] Exposure to SARS-CoV -2 (event) Unable to assess [place] Start: 09-25-2020 End: 09-16-2023 Tobacco use and exposure Never used [facility] Start: 09-25-2020 End: 11-14-2023 Alcohol intake Ex-drinker (finding) [facility] Start: 10-02-2020 Tobacco Comment <1 pack daily 1 [facility] Start: 02-09-2021 [facility] Work Phone: Start: 03-25-2021 [facility] Start: 09-25-2021 End: 10-15-2021 Exposure to SARS-CoV-2 (event) Not sure [facility] Start: 06-12-2021 End: 09-16-2023 Tobacco smoking status NHIS Ex-smoker [facility] Start: 05-19-2021 Tobacco smoking stat [facility] Occasional tobacco smoker [facility] Start: 09-14-2021 End: 05-11-2022 Tobacco Comment Pt seldom vapes [facility] History of tobacco use Current smoker [facility] Start: 12-15-2021 Alcohol Comment occ [facility] [employer] Work Phone: Adolescent depressio n screening assessment 9 [facility] Medical Equipment Procedure Code Equipment Code Equipment Origin al Text Equipment Identifier Dates Fasting & 2 hr P P each meal [id number] Start: 09-10-2021 Pt to test four times daily fasting, 2 hr pp, bedtime [id number] Start: 09-10-2021 1 each by Other route 4 times daily One glucometer, test strips, lancets - per insurance coverage [id number] Start: 09-10-2021 End: 09-10-2022 Pt to check BS fasting 2 hours post each meal [id number] Start: 09-10-2021 Clinical Notes 11-06-2020 to 11-29-2023 Nicole Norton RN - 11/29/2023 1:30 PM EDStephanie Norton RN - 11/01/2023 1:30 PM Samuel Norton RN - 09/26/2023 2:00 PM TAMICA Petty - 05/11/2022 8:20 AM EDTInstructions Note Date [...] understanding of instructions. documented in this encounter [facility] 11-01-2023 History of Present illness [...] understanding of instructions. documented in this encounter [facility] 09-26-2023 History of Present illness Narrative 1420-Patient arrived per ambulation, accompanied by self. Alert, oriented x 3. Assisted to recliner. Patient states she has received sublocade in the past. Ice provided to apply to site prior to injection. 1505- Discharged per ambulation, accompanied by self, in stable condition. Verbalizes understanding of instructions. documented in this encounter [facility] 05-11-2022 History of Present illness Narrative Follow Up Visit Christine Salcido [id number] 1998 05/11/2022 Chief Complaint Patient presents with Addiction problem History of Present Illness: Christine Salcido is a 22 y.o. female presenting for follow up for MAT. Following with [facility]. Was dx with gestational dm. Post baby [...] consoling with [facility]ra De La Rosa in [place]. Attending as set up and directed by [...] History Tobacco Use Smoking Status Former Years: 7. Types: Cigarettes Smokeless Tobacco Never Tobacco Comments [...] by Nasal route once for 1 dose. Gattman into the nose as directed. Call 911. [...] or performed [facility] Result Value Ref Range Marijuana [...] is with Kindra De La Rosa in [place]. Will cont with them. Compliant and verified [...] daily. TAMICA Zavaleta documented in this encounter [facility] 03-11-2022 History of Present illness Narrative Follow Up Visit Christine Salcido [id number] 1998 03/11/2022 Chief Complaint Patient presents with Medication Management Opioid dependence History of Present Illness: Christine Salcido is a 21 y.o. female presenting for follow up for MAT. Following with [facility]. Was dx with gestational dm. Post baby [...] consoling with [facility]ra De La Rosa in [place]. Attending as set up and directed by [...] by Nasal route once for 1 dose. Gattman into the nose as directed. Call 911. [...] is with Kindra De La Rosa in [place]. Will cont with them. Compliant and verified [...] SCREEN TAMICA Zavaleta documented in this encounter [facility] 02-08-2022 History of Present illness Narrative Follow Up Visit Christine Salcido [id number] 1998 02/08/2022 Chief Complaint Patient presents with Medication Management Opioid dependence History of Present Illness: Christine Salcido is a 21 y.o. female presenting for follow up for MAT. Following with [facility]. Was dx with gestational dm. Post baby [...] consoling with [facility]ra De La Rosa in [place]. Attending as set up and directed by [...] by Nasal route once for 1 dose. Gattman into the nose as directed. Call 911. [...] is with [facility]ra De La Rosa in [place]. Will cont with them. Compliant and verified [...] SCREEN TAMICA Zavaleta documented in this encounter [facility] 01-06-2022 History of Present illness Narrative Follow Up Visit Christine Salcido [id number] 1998 01/06/2022 Chief Complaint Patient presents with Medication Management Opioid dependence History of Present Illness: Christine Salcido is a 21 y.o. female presenting for follow up for MAT. Following with [facility]. Was dx with gestational dm. Post baby [...] consoling with [facility]ra De La Rosa in [place]. Attending as set up and directed by [...] by Nasal route once for 1 dose. Gattman into the nose as directed. Call 911. [...] is with [facility]ra De La Rosa in [place]. Will cont with them. Compliant and verified [...] daily. TAMICA Zavaleta documented in this encounter [facility] 12-08-2021 History of Present illness Narrative Follow Up Visit Christine Salcido [id number] 1998 12/08/2021 Chief Complaint Patient presents with Medication Management Opioid dependence in remission History of Present Illness: Christine Salcido is a 21 y.o. female presenting for follow up for MAT. Following with [facility]. Was dx with gestational dm. Post baby [...] consoling with Kindra De La Rosa in [place]. Attending as set up and directed by [...] by Nasal route once for 1 dose. Gattman into the nose as directed. Call 911. [...] is with Kindra De La Rosa in [place]. Will cont with them. Compliant and verified [...] daily. TAMICA Zavaleta documented in this encounter [facility] 11-10-2021 History of Present illness Narrative Follow Up Visit Christine Salcido [id number] 1998 11/10/2021 Chief Complaint Patient presents with Medication Management Opioid dependence. 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 History of Present Illness: Christine Salcido is a 21 y.o. female presenting for follow up for MAT. Following with [facility]. Was dx with gestational dm. Post baby [...] consoling with Kindra De La Rosa in [place]. Attending as set up and directed by [...] by Nasal route once for 1 dose. Gattman into the nose as directed. Call 911. [...] is with Kindra De La Rosa in [place]. Will cont with them. Compliant and verified [...] (infant) TAMICA Zavaleta documented in this encounter [facility] 10-15-2021 Hospital Discharge instructions Estephanie Coates, GI - 10/15/[address] Vasquez NOV[place] Dr. Ida Sparrow [address] [facility] [id number] [place] [address] or [place] ACTIVITY LIMITATIONS: ( X)Up and about as [...] AND DELIVERY . documented in this encounter [employer] Phone: 10-05-2021 Hospital Discharge instructions Minnie Otto RN - 10/05/[address] Vasquez [place] [facility] Dr. Ida Sparrow CN [address] [facility] [address] [facility] [address] [place] or [place] [address] Ida Mojica CN [address] [facility] [address] [phone] Nely Roberto, MSN, MENAGERIE CARETAKER, CNM [facility] [address] [facility] [address] [address] Wilson [address] [facility] [address] Jody Angel CNM [address] [place] [address] [place] [address] Paris Courtney CNM [address] [place] [address] [place] [address] [place] [address] [phone] ACTIVITY LIMITATIONS: ( x )Up and about [...] AND DELIVERY . documented in this encounter [employer] Phone: 09-16-2021 History of Present illness Narrative Christine Salcido was scheduled for Diabetes Education on 09/16/21 and did not show for her appointment. Message was left to reschedule and I have not received a follow up call in response. I am happy to see Christine for Diabetes Education. Thank you, Sarah Delaney RN [facility] [place] [facility] [phone] documented in this encounter [employer] Phone: 09-16-2021 History of Present illness Narrative [...] for the referral. documented in this encounter [employer] Phone: 09-14-2021 History of Present illness Narrative Follow Up Visit Christine Salcido [id number] 1998 09/14/2021 Chief Complaint Patient presents with Medication Management opioid dependence Other FYI: Pt states since last OV she was dx with gestational diabetes and was told hemoglobin is super low History of Present Illness: Christine Salcido is a 21 y.o. female presenting for follow up for MAT. Following with [facility]. 8 months preg. Was dx with gestational [...] consoling with Kindra De La Rosa in [place]. Attending as set up and directed by [...] stressful personal problems. 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 Would like to taper down and come off of management. Consoling is with Kindra De La Rosa in [place]. Will cont with them. Compliant and verified [...] age TAMICA Zavaleta documented in this encounter [facility] 06-16-2021 History of Present illness Narrative Follow Up Visit Christine Salcido [id number] 1998 06/16/2021 Chief Complaint Patient presents with Medication Management opioid dependence in remission History of Present Illness: Christine Salcido is a 21 y.o. female presenting for follow up for MAT. Recently pos . Following with [facility]. Has her 20 wk scan tomorrow. Discussed [...] consoling with Kindra De La Rosa in [place]. Attending as set up and directed by [...] Smoking Status Current Some Day Smoker Years: 7. Types: Cigarettes Smokeless [...] or performed in visit on 05/19/21 POCT [facility] DRUG SCREEN Result Value Ref [...] stressful personal problems. 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 Would like to taper down and come off of management. Consoling is with Kindra De La Rosa in [place]. Will cont with them. Compliant and verified [...] disorder TAMICA Zavaleta documented in this encounter [facility] 03-25-2021 Instructions Martha Lara, - 03/25/2021 7:39 PM EDT Images from [...] include drinking lots of fluids and taking [id number]-[id number] pain medicine. You will probably feel better [...] amount of fluids you drink. Take an bzza-apl-ohxbdkm pain medicine, such as acetaminophen (Tylenol), ibuprofen (Advil, Motrin), or naproxen (Aleve). Read and follow all instructions on the label. Before you use cough and cold medicines, check the label. These medicines may not be safe for young children or for people with certain health problems. Be careful when taking gspe-jdc-pmryakd cold or flu medicines and Tylenol at [...] more? Log into your personal health record on?[email or web address] om?and enter?K520?in the Education box to learn more about Upper Respiratory Infection (Cold): Care Instructions. Current as of: May 12, 2020 Content Version: 12.9 [employer]. Care instructions adapted under license by your healthcare professional. If you have questions about a medical condition or this instruction, always ask your healthcare professional. [employer] disclaims any warranty or liability for your use of this information. documented in this encounter [facility] 03-25-2021 History of Present illness Narrative PATIENT NAME: Christine Salcido [facility]: [address] [facility] [id number] DATE OF VISIT: 03/25/2021 DATE OF : [...] Friends and Family: Not on file Attends [employer] Services: Not on file Active Member of [...] visit. Martha Lara documented in this encounter [facility] 03-03-2021 History of Present illness Narrative Follow Up Visit Christine Salcido [id number] 1998 03/03/2021 Chief Complaint Patient presents with Medication Management opioid dependence; Pt recently found out she was , Pts initial apt with OBGYN 03/10 History of Present Illness: Christine Salcido [...] current se. Taking as prescribed. Has a [facility] apt on 03/10/[address] Ovalle out of [facility]. History: Past Medical History: Diagnosis [...] Social Gatherings with Friends and Family: Attends [employer] Services: Active Member of Clubs or Organizations: [...] presents for follow up. Pos . Has [facility] apt end of the month. Managed in [...] SCREEN TAMICA Zavaleta documented in this encounter [facility] 02-26-2021 History of Present illness Narrative Follow Up Visit Christine Salcido [id number] 1998 02/26/2021 Chief Complaint Patient presents with [...] Social Gatherings with Friends and Family: Attends [employer] Services: Active Member of Clubs or Organizations: [...] Anxiety TAMICA Zavaleta documented in this encounter [facility] 01-29-2021 History of Present illness Narrative Follow Up Visit Christine Salcido [id number] 1998 01/29/2021 Chief Complaint Patient presents with [...] Social Gatherings with Friends and Family: Attends [employer] Services: Active Member of Clubs or Organizations: [...] food/milk TAMICA Zavaleta documented in this encounter [facility] 01-01-2021 History of Present illness Narrative Follow Up Visit Christine Salcido [id number] 1998 01/01/2021 Chief Complaint Patient presents with [...] Social Gatherings with Friends and Family: Attends [employer] Services: Active Member of Clubs or Organizations: [...] Anxiety TAMICA Zavaleta documented in this encounter [facility] 12-04-2020 History of Present illness Narrative Pt denied any concerns prior to injection. Administered 0.5 g Rocephin into pts left gluteus. Pt tolerated injection well. Follow Up Visit Christine Salcido [id number] 1998 12/04/2020 Chief Complaint Patient presents with [...] that she was trying to get into [facility] but apts too far out. Asking about [...] Social Gatherings with Friends and Family: Attends [employer] Services: Active Member of Clubs or Organizations: [...] g, Intramuscular, Once (In Clinic), Radha Benavides, MENAGERIE CARETAKER-SHRIMPING [employer]AT CAPTAIN ROS: Review of Systems Constitutional: Negative for [...] Not able to get timely apt with [facility] -will send urine for culture. -will tx [...] Future TAMICA Zavaleta documented in this encounter [facility] 11-20-2020 History of Present illness Narrative Follow Up Visit Christine Salcido [id number] 1998 11/20/2020 Chief Complaint Patient presents with [...] Friends and Family: Not on file Attends [employer] Services: Not on file Active Member of [...] Anxiety TAMICA Zavaleta documented in this encounter [facility] 11-06-2020 History of Present illness Narrative Follow Up Visit Christine Salcido [id number] 1998 11/06/2020 Chief Complaint Patient presents with [...] Friends and Family: Not on file Attends [employer] Services: Not on file Active Member of [...] Anxiety TAMICA Zavaleta documented in this encounter [facility] Evaluation note Diagnosis Opioid dependence in remission- Primary Opioid type dependence, in remission Encounter for long-term opiate analgesic use Encounter for long-term (current) use of other medications Anxiety Anxiety state, unspecified [facility] Diagnosis Opioid dependence in remission- Primary Opioid type dependence, in remission Encounter for long-term opiate analgesic use Encounter for long-term (current) use of other medications Anxiety Anxiety state, unspecified Exposure to STD Contact with or exposure to venereal diseases documented in this encounter [facility]* Diagnosis Opioid dependence in remission- [...] hematuria Acute cystitis documented [facility] this encounter [facility]* Diagnosis Amenorrhea Absence of menstruation Positive urine test Encounter for supervision of normal first in first trimester Supervision of normal first documented in this encounter [employer] Phone: [email or web address] note* Diagnosis Acute nasopharyngitis- Primary Acute nasopharyngitis (common cold) Exposure to SARS-associated coronavirus [place] Disturbances of sensation of smell and taste [facility] Diagnosis Abdominal pain during in first trimester- Primary Urinary tract infection without hematuria, site unspecified documented in this encounter [employer] Phone: evaluation note* Diagnosis with 11 completed weeks gestation documented in this encounter [employer] Phone: [email or web address] note* Diagnosis Rectal bleeding- Primary Hemorrhage of rectum and anus documented in this encounter [employer] Phone: [email or web address] note* Diagnosis Viral URI- Primary Acute upper respiratory infections of unspecified site Otalgia, unspecified laterality documented in this encounter [employer] Phone: [email or web address] note* Diagnosis Opioid dependence in remission- Primary Opioid type dependence, in remission Encounter for long-term opiate analgesic use Encounter for long-term (current) use of other medications , unspecified gestational age Anxiety Anxiety state, unspecified Bipolar 1 disorder Bipolar I disorder, most recent episode (or current) unspecified [facility] Diagnosis Opioid dependence in remission- Primary Opioid type dependence, in remission Encounter for long-term opiate analgesic use Encounter for long-term (current) use of other medications , unspecified gestational age Anxiety Anxiety state, unspecified documented [facility] this encounter [facility]* Diagnosis 36 weeks gestation of state, incidental documented in this encounter [employer] Phone: [email or web address] note* Diagnosis uterine contractions in third trimester, antepartum- Primary documented in this encounter [employer] Phone: [email or web address] note* Diagnosis Opioid dependence in remission- Primary Opioid type dependence, in remission Encounter for long-term opiate analgesic use Encounter for long-term (current) use of other medications Anxiety Anxiety state, unspecified [facility] Diagnosis Positive test- Primary examination or test, positive result Opioid dependence in remission Opioid type dependence, in remission Encounter for long-term opiate analgesic use Encounter for long-term (current) use of other medications [facility] Diagnosis Opioid dependence in remission- Primary Opioid type dependence, in remission Encounter for long-term opiate analgesic use Encounter for long-term (current) use of other medications () Other specified conditions influencing health status [facility] Diagnosis Opioid dependence in remission- Primary Opioid type dependence, in remission Encounter for long-term opiate analgesic use Encounter for long-term (current) use of other medications [facility] Diagnosis Opioid dependence in remission- Primary Opioid type dependence, in remission Encounter for long-term opiate analgesic use Encounter for long-term (current) use of other medications [facility] Diagnosis Opioid dependence in remission- Primary Opioid type dependence, in remission [facility]* Diagnosis Opioid dependence in remission- Primary Opioid type dependence, in remission [facility]* Diagnosis Opioid dependence in remission- Primary Opioid type dependence, in remission [facility]* Attachments The following attachments cannot be sent through Care Everywhere. * : Abdominal Pain (Puerto Rican) [facility] Phone: Hospital Discharge instructions* Attachments The following attachments cannot be sent through Care Everywhere. * Rectal Bleeding (Puerto Rican) documented in [facility] Phone: Hospital Discharge instructions* Attachments The following attachments cannot be sent through Care Everywhere. * URI (Upper Respiratory Infection): Viral (Puerto Rican) [facility] Phone: Summary Purpose Family History No Family History Records FoundNo Family History Records FoundNo Family History Records FoundNo Family History Records FoundNo Family History Records FoundNo Family History Records FoundNo Family History Records FoundNo Family History Records FoundNo Family History Records FoundNo Family History Records Found Advance Directives No Advanced Directives Records FoundDocuments on File Type Date Recorded Patient Sieve Maker Expl anation Advance Directives and Living Will Power of Parts Department Supervisor Documents on File Type Date Recorded Patient Sieve Maker Expl anation ACP-Advance Directive ACP-Power of Parts Department Supervisor Documents on File Type Date Recorded Patient Sieve Maker Expl anation Advance Directives and Living Will Documents on File Type Date Recorded Patient Sieve Maker Expl anation ACP-Advance Directive ACP-Power of Parts Department Supervisor Latest Code Status on File Code Status [...] sent through Care Everywhere. * Acute Concussion (Puerto Rican) documented in this encounter* Attachments The following attachments cannot be sent through Care Everywhere. * Vaginal Yeast Infection (Puerto Rican) documented in this encounter* Attachments The following attachments cannot be sent through Care Everywhere. * Chlamydia (Puerto Rican) * Pelvic Pain (Puerto Rican) documented in this encounter* Instructions* Karlo Warner MD - 01/22/2020 Antimicrobial therapy Acute bronchitis usually is caused by viruses. Inappropriate use of antibiotics for viral respiratory infections can cause adverse events and contribute to development of antibiotic resistance. Multiple major medical societies and health care organizations, including the [place] Centersfor Disease Control and Prevention, [employer], and the National Health Services in the [place], specifically recommend against the routine use of empiric antibiotics for the treatment of acute bronchitis. Avoidance of antibiotics for the treatment of adults with acute bronchitis was also included as a component of the Healthcare Effectiveness Data and Information Set reported to the National Committee for [employer] in 2007 and included as a National Quality Forum quality measure. * Attachments The following attachments cannot be sent through Care Everywhere. * Bronchitis (Puerto Rican) * Headache (Puerto Rican) documented in this encounter Assessments Diagnosis Concussion [...] History of Present Illness * Radha Benavides, MENAGERIE CARETAKER-SHRIMPING BOAT CAPTAIN - 09/25/2020 10:00 AM EST New Patient Visit Christnie Salcido [id number] 1998 09/25/2020 Chief Complaint Patient presents with [facility] Appt. History of Present Illness: Christine Salcido [...] Friends and Family: Not on file Attends [employer] Services: Not on file Active Member of [...] 14 her high school boyfriend went to [facility]. For 5 years. Her life spiraledout of [...] buy heroin for her. She went to alf. They sent her to an inpatient facility in [place], [place]. She was told that if she completed treatment there that she would be able to get the charges against her dropped. She endedup messing up and going back to alf in 2018. She ws in [facility]. Then [facility]. She did fairly decent until Summer for 2019 when she relapsed again. She lost her car and her apartment. She spent 60 days in alf and they ended up sending her to the [facility] in [place], [place]. She went in March 2020 till now. She has relapsed once since being there.She called her penal officer and he made her serve two weeks in alf but was able to return to [facility]. Her penal officer is Jeancarlos Marin with [facility]. She is still in the [facility] until she is able to save up enough money to live on her own. She is not allowed to live with her mom or her dad. They say her mom and dad are both triggers for her to relapse. Her mom is a previous drug addict and her dad lives in [place] and her penal officer does not want her living in [place]. She does have Felony charges and then some on her due to not completing programs. She has been seeing Dr. Cox at [facility] and was previously seeing Janet Fu in [place], [place]. She last saw Kenny on 09/17/20. [...] 2019 [address] in [facility] for 6 months. Follow-Up: Preventive labs were [...] pt tolerated collection well. * Radha Benavides, MENAGERIE CARETAKER-SHRIMPING BOAT CAPTAIN - 10/02/2020 10:50 AM EDT Follow Up Visit Christine Salcido [id number] 1998 10/02/2020 Chief Complaint Patient presents with [...] Friends and Family: Not on file Attends [employer]: Not on file Active Member of [...] PM EDT Follow Up Visit Christine Salcido [id number] 1998 10/09/2020 Chief Complaint Patient presents with [...] Friends and Family: Not on file Attends [employer]: Not on file Active Member of [...] AM EDT Follow Up Visit Christine Salcido [id number] 1998 10/23/2020 Chief Complaint Patient presents with [...] Friends and Family: Not on file Attends [employer]: Not on file Active Member of [...] analgesic use , unspecified gestational age Radha Benavides, MENAGERIE CARETAKER-SHRIMPING BOAT CAPTAIN [address] [place] [address] Referral ID Status Reason Start Date Expiration Date Visits Re quested Visits Authorized [id number] Closed 1 1 Referral ID Status Reason Start Date Expiration Date Visits Re quested Visits Authorized [id number] Closed 1 1 Specialty Diagnoses / Procedures Referred By Hilaria waterman Referred To Contact Diagnoses Opioid dependence in remission Encounter for long-term opiate analgesic use Benavides Radha Lieberman, MENAGERIE CARETAKER-SHRIMPING BOAT CAPTAIN [address] [place] [address] Referral ID Status Reason Start Date Expiration Date Visits Re quested Visits Authorized [id number] Closed 1 1 Referral ID Status Reason Start Date Expiration Date Visits Re quested Visits Authorized [id number] Closed 1 1 Referral ID Status Reason Start Date Expiration Date Visits Re quested Visits Authorized [id number] Closed 1 1 Referral ID Status Reason Start Date Expiration Date Visits Re quested Visits Authorized [id number] Closed 1 1 Additional Source Comments INFORMATION SOURCE (unrecogn ized section and content) DATE CREATED AUTHOR 08/31/2018 [facility] DATE CREATED AUTHOR AUTHOR'S ORGANIZ ATION 10/23/2018 [facility] DATE CREATED AUTHOR AUTHOR'S ORGANIZ ATION 03/26/2021 [facility] DATE CREATED AUTHOR AUTHOR'S ORGANIZ ATION 10/03/2021 [facility] [facility] DATE CREATED AUTHOR AUTHOR'S ORGANIZ ATION 05/12/2022 [facility] DATE CREATED AUTHOR AUTHOR'S ORGANIZ ATION 05/20/2022 [facility] DATE CREATED AUTHOR AUTHOR'S ORGANIZ ATION 08/23/2022 [facility] DATE CREATED AUTHOR AUTHOR'S ORGANIZ ATION 12/01/2023 [facility] DATE CREATED AUTHOR AUTHOR'S ORGANIZ ATION 02/01/2024 [facility] DATE CREATED AUTHOR AUTHOR'S ORGANIZ ATION 02/06/2024 [facility] Reason for Visit (unrecogniz ed section and [...] Reason Comments Abdominal Pain 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 Reason Comments Abdominal [...] low Specialty Diagnoses / Procedures Referred By Hilaria t Referred To Contact Diabetes Services Diagnoses 32 weeks gestation of Abnormal glucose complicating Karlee Hayden, MENAGERIE CARETAKER - CNM [address] [place] [address] [facility] [address] [place] [address] Referral ID Status Reason Start Date Expiration Date V isits Requested Visits Authorized [id number] Open Specialty Services Required 09/10/2021 09/10/2022 2 [...] Immunization/Injection Specialty Diagnoses / Procedures Referred By Conturiel t Referred To Contact Chemotherapy Diagnoses Opioid dependence in remission Virginia Cox, DO [address] [place] [address] [facility] [address] [place] [address] Referral ID Status Reason Start Date Expiration Date Visits Re quested Visits Authorized [id number] Closed 09/16/2023 10/10/2024 1 1 Care Teams (unrecognized sec tion and content) Book Shelver Relationship Specialty Start Date End Date Marianne Tucker, SHRIMPING BOAT CAPTAIN [address] [place] [address] PCP - General Nurse Practitioner 03/25/21 Book Shelver Relationship Specialty Start Date End Date Janet Fu MENAGERIE CARETAKER - SHRIMPING BOAT CAPTAIN [address] [place] [address] PCP - General Specialist 08/07/18 Book Shelver Relationship Specialty Start Date End Date Janet Fu MENAGERIE CARETAKER - SHRIMPING BOAT CAPTAIN [address] [place] [address] PCP - General Specialist 08/07/18 Book Shelver Relationship Specialty Start Date End Date Radha Benavides, MENAGERIE CARETAKER-SHRIMPING BOAT CAPTAIN [address] [place] [address] PCP - General Family Medicine 09/25/20 Book Shelver Relationship Specialty Start Date End Date Janet Fu MENAGERIE CARETAKER - SHRIMPING BOAT CAPTAIN [address] [place] [address] PCP - General Specialist 08/07/18 Book Shelver Relationship Specialty Start Date End Date Janet Fu MENAGERIE CARETAKER - SHRIMPING BOAT CAPTAIN [address] [place] [address] PCP - General Specialist 08/07/18 Book Shelver Relationship Specialty Start Date End Date Janet Fu, MENAGERIE CARETAKER - SHRIMPING BOAT CAPTAIN [address] [place] [address] PCP - General Specialist 08/07/18 Book Shelver Relationship Specialty Start Date End Date Karthik Fun Amber, MENAGERIE CARETAKER - SHRIMPING BOAT CAPTAIN [address] [place] [address] PCP - General Specialist 08/07/18 Book Shelver Relationship Specialty Start Date End Date Karthik Fun Amber, MENAGERIE CARETAKER - SHRIMPING BOAT CAPTAIN [address] [place] [address] PCP - General Specialist 08/07/18 Book Shelver Relationship Specialty Start Date End Date Radha Benavides, MENAGERIE CARETAKER-SHRIMPING BOAT CAPTAIN [address] [facility] [place] [address] PCP - General Family Medicine 09/25/20 Book Shelver Relationship Specialty Start Date End Date Radha Benavides, MENAGERIE CARETAKER-SHRIMPING BOAT CAPTAIN [address] [facility] [place] [address] PCP - General Family Medicine 09/25/20 Book Shelver Relationship Specialty Start Date End Date Radha Benavides, MENAGERIE CARETAKER-SHRIMPING BOAT CAPTAIN [address] [facility] [place] [address] PCP - General Family Medicine 09/25/20 Book Shelver Relationship Specialty Start Date End Date Radha Benavides, MENAGERIE CARETAKER-SHRIMPING BOAT CAPTAIN [address] [facility] [place] [address] PCP - General Family Medicine 09/25/20 Book Shelver Relationship Specialty Start Date End Date Radha Benavides, MENAGERIE CARETAKER-SHRIMPING BOAT CAPTAIN [address] [facility] [place] [address] PCP - General Family Medicine 09/25/20 Book Shelver Relationship Specialty Start Date End Date Janet Fu, MENAGERIE CARETAKER - SHRIMPING BOAT CAPTAIN [address] [place] [address] PCP - General Specialist 08/07/18 Book Shelver Relationship Specialty Start Date End Date Radha Benavides, MENAGERIE CARETAKER-SHRIMPING BOAT CAPTAIN [address] [place] [address] PCP - General Family Medicine 09/25/20 Book Shelver Relationship Specialty Start Date End Date Radha Benavides, MENAGERIE CARETAKER-SHRIMPING BOAT CAPTAIN [address] [place] [address] PCP - General Family Medicine 09/25/20 Book Shelver Relationship Specialty Start Date End Date Radha Benavides, MENAGERIE CARETAKER-SHRIMPING BOAT CAPTAIN [address] [place] [address] PCP - General Family Medicine 09/25/20 Ordered [...] BE BASED ON THE PRIMARY CLINICAL RECORDS. [facility]. provides no warranty or guarantee of the accuracy or completeness of information in this document.
--- NOTE | 2024-05-06 21:14 | ED_ITS ---
HPI - Dental/Oral General Chief complaint: Dental/Oral Stated complaint: Dental/Oral Pain Time Seen by Provider: 05/06/24 21:04 Source: patient Mode of arrival: walk-in Limitations: no limitations History of Present Illness HPI Narrative: 24-year-old female presents for dental pain. She is complaining of pain primarily on the left upper and lower dentition. She is seeing a dentist and she is going to have 7 teeth removed including her wisdom teeth. No difficulty breathing or swallowing and she has not had a fever. She has had this for 4 days and it seems to be getting worse with time. Related Data Home Medications ?Medication ?Instructions ?Recorded ?Confirmed buprenorphine 300 mg/1.5 mL 300 mg subcut .x1 month 01/09/24 05/06/24 solution,exten.rel.subcutaneous syringe (Sublocade) gabapentin 300 mg capsule 400 mg PO TID 01/09/24 05/06/24 omeprazole 20 mg capsule,delayed 20 mg PO DAILY 01/09/24 05/06/24 release Previous Rx's ?Medication ?Instructions ?Recorded ibuprofen 800 mg tablet 800 mg PO Q8H PRN pain #20 tabs 05/06/24 penicillin V potassium 250 mg 250 mg PO QID 10 days #40 tabs 05/06/24 tablet Allergies Allergy/AdvReac Type Severity Reaction Status Date / Time No Known Drug Allergies Allergy Verified 05/06/24 21:04 Review of Systems ROS Narrative A ten point review of systems is negative except as noted above. PFSH PFSH Social History Little interest or pleasure in doing things: not at all Feeling down, depressed, or hopeless: not at all Exam Narrative Exam Narrative: Nurses note and vital signs reviewed and patient is not hypoxic. General: The patient appears well and in no apparent distress. Patient is resting comfortably on cart. Skin: Warm, dry, no pallor noted. There is no rash noted. Head: Normocephalic, atraumatic Eye: Normal conjunctiva, no drainage Ears, Nose, Mouth, and Throat: oral mucosa is moist. Nares patent. No facial swelling or erythema. No gingival swelling. No bleeding or pus present. Dental caries is noted. Cardiovascular: Regular Rate and Rhythm Respiratory: Patient is in no distress, no accessory muscle use Back: non-tender GI: Nontender Musculoskeletal: No joint swelling Neurological: A&O, normal speech Psychiatric: Cooperative Constitutional Vital Signs, click to edit/add: Last Vital Signs Temp 98.6 F 05/06/24 21:04 Pulse 95 H 05/06/24 21:04 Resp 18 05/06/24 21:04 BP 135/98 H 05/06/24 21:04 Pulse Ox 100 05/06/24 21:04 O2 Del Method Room Air 05/06/24 21:04 Course Vital Signs Vital signs: Vital Signs Temperature 98.6 F 05/06/24 21:04 Pulse Rate 95 H 05/06/24 21:04 Respiratory Rate 18 05/06/24 21:04 Blood Pressure 135/98 H 05/06/24 21:04 Pulse Oximetry 100 05/06/24 21:04 Oxygen Delivery Method Room Air 05/06/24 21:04 Temperature 98.6 F 05/06/24 21:04 Pulse Rate 95 H 05/06/24 21:04 Respiratory Rate 18 05/06/24 21:04 Blood Pressure 135/98 H 05/06/24 21:04 Pulse Oximetry 100 05/06/24 21:04 Oxygen Delivery Method Room Air 05/06/24 21:04 MDM - Dental/Oral MDM Narrative Medical decision making narrative: She is on Sublocade and is requesting no narcotics. She was given IM Toradol and oral penicillin here and prescribed ibuprofen and penicillin. She will follow-up with her dentist. Treatment diagnosis and follow-up were discussed with the patient. Differential Diagnosis Differential diagnosis: Likely dental caries, toothache and dental abscess Discharge Plan Discharge Chief Complaint: Dental/Oral Clinical Impression: Dental caries, Toothache Patient Disposition: Home, Self-Care Time of Disposition Decision: 21:13 Condition: Good Mode of Transportation: Private Vehicle Prescriptions / Home Meds: New penicillin V potassium 250 mg tablet 250 mg PO QID 10 Days Qty: 40 0RF ibuprofen 800 mg tablet 800 mg PO Q8H PRN (Reason: pain) Qty: 20 0RF No Action gabapentin 300 mg capsule 400 mg PO TID omeprazole 20 mg capsule,delayed release(DR/EC) 20 mg PO DAILY Sublocade 300 mg/1.5 mL solution, extended rel syringe 300 mg SUBCUT .x1 month Print Language: Ukrainian Instructions: Toothache (ED) Additional Instructions: Follow-up with your dentist Referrals: ALYSSA RICCI [Primary Care Provider] - 1 week
[2024-05-06] MEDS: PENICILLIN V POTASSIUM 250 MG TABLET 500 MG PO (21:24)
[2024-05-06] MEDS: KETOROLAC TROMETHAMINE 60 MG/2 ML VIAL IM (21:24)
== END 2024-05-06 21:30 | disposition home or self-care (01) ==
PROVIDERS: Emergency Provider Emergency Medicine; PCP Nurse Practitioner
DX: K02.9 Dental caries, unspecified (principal); K08.89 Other specified disorders of teeth and supporting structures
CPT/HCPCS: 96372; 99284; J1885